=== PATIENT | female | born 1960 | race Caucasian/White ===

== ENCOUNTER 2017-12-01 18:04 | Inpatient (IN) | payer MEDICAID, SELFPAY ==
[2017-12-01 19:34] LABS: BASO # 0.1 10^3/uL (0.0-0.2); BASO % 0.5 % (0.0-1.0); EOS # 0.1 10^3/uL (0.0-0.50); EOS % 0.4 % (0.0-3.0); HEMATOCRIT 45.8 % (36.0-47.0); IMMATURE GRANULOCYTE % 1.1 % (0-3.0); LYMPH # 0.6 10^3/uL (1.5-4.5); LYMPH % 4.7 % (24.0-44.0); MEAN CORPUSCULAR HEMOGLOBIN 27.3 pg (27.0-33.0); MEAN CORPUSCULAR HGB CONC 32.8 g/dl (32.0-36.5); MEAN CORPUSCULAR VOLUME 83.4 fl (80.0-96.0); NEUTROPHILS # 10.1 10^3/uL (1.8-7.7); NEUTROPHILS % 85.3 % (36.0-66.0); PLATELET COUNT, AUTOMATED 218 10^3/uL (150-450); RED BLOOD COUNT 5.49 10^6/uL (4.00-5.40); RED CELL DISTRIBUTION WIDTH 16.3 % (11.5-14.5); WHITE BLOOD COUNT 11.8 10^3/uL (4.0-10.0)
[2017-12-01 19:55] LABS: ERYTHROCYTE SEDIMENTATION RATE 9 mm/hr (0-30)
[2017-12-01 20:38] LABS: INR 4.82; PROTHROMBIN TIME 47.8 SECONDS (12.4-14.5)
[2017-12-01 20:40] LABS: PARTIAL THROMBOPLASTIN TIME 98.2 SECONDS (26.8-37.9)
[2017-12-01 20:42] LABS: ALBUMIN 2.1 GM/DL (3.2-5.2); ALBUMIN/GLOBULIN RATIO 0.38 (1.00-1.93); ALKALINE PHOSPHATASE 240 U/L (45-117); ALT/SGPT 16 U/L (12-78); ANION GAP 21 MEQ/L (8-16); AST/SGOT 10 U/L (7-37); BILIRUBIN,DIRECT 0.1 MG/DL (0.0-0.2); BILIRUBIN,TOTAL 0.5 MG/DL (0.2-1.0); BLOOD UREA NITROGEN 36 MG/DL (7-18); CALCIUM LEVEL 9.2 MG/DL (8.5-10.1); CARBON DIOXIDE LEVEL 19 MEQ/L (21-32); CHLORIDE LEVEL 89 MEQ/L (98-107); CPK CREATINE PHOSPHOKINASE 33 U/L (26-192); CREATININE FOR GFR 1.53 MG/DL (0.55-1.30); FREE T4 1.33 NG/DL (0.76-1.46); GLOMERULAR FILTRATION RATE 37.5 (>51); SODIUM LEVEL 129 MEQ/L (136-145); TOTAL PROTEIN 7.6 GM/DL (6.4-8.2); TROPONIN I < 0.02 NG/ML (< 0.10)
[2017-12-01 20:48] LABS: CK-MB VALUE MASS 1.8 NG/ML (<3.6); MB/CK RELATIVE INDEX 5.45 (< OR =4); NT-PRO BNP 2514 PG/ML (<125)
[2017-12-01 21:00] LABS: GLUCOSE, FASTING 601 MG/DL (70-100)
[2017-12-01] MEDS: INSULIN HUMAN REGULAR 100 UNITS in NS 99 ML IV (21:03)
[2017-12-01] MEDS: HumuLIN R (REGULAR) INSULIN (NovoLIN R) **100U/ML** PER UNIT IV (21:15)
[2017-12-01] MEDS: NS 500 ML IV (21:15)
[2017-12-01] MEDS: MORPHINE 2 MG/ML 1ML SYRINGE (J2270) IV (21:15)
[2017-12-01] MEDS ORDERED: ACETAMINOPHEN TAB 650MG DOSE (2X325MG) PO (21:30)
[2017-12-01] MEDS: CEFEPIME HCL 1 GM in D5W MINI-BAG PLUS 50 ML IV (22:00)
[2017-12-01 22:03] LABS: ACETONE/KETONE > 46.00 MG/DL (<2.81)
[2017-12-02] MEDS ORDERED: VANCOMYCIN HCL 750 MG, VIAL MATE ADAPTER 1 EACH in D5W 250 ML IV (00:15)
[2017-12-02 00:16] LABS: BEDSIDE GLUCOSE 541 MG/DL (70-105)
[2017-12-02] MEDS: NS 1,000 ML IV (01:02)
[2017-12-02 01:07] LABS: BEDSIDE GLUCOSE 546 MG/DL (70-105)
[2017-12-02] MEDS: VANCOMYCIN HCL 1,000 MG, VIAL MATE ADAPTER 1 EACH in D5W 250 ML IV ×3 (01:19→23:44)
[2017-12-02 01:39] LABS: ANION GAP 13 MEQ/L (8-16); BLOOD UREA NITROGEN 40 MG/DL (7-18); CALCIUM LEVEL 9.3 MG/DL (8.5-10.1); CARBON DIOXIDE LEVEL 25 MEQ/L (21-32); CHLORIDE LEVEL 94 MEQ/L (98-107); CREATININE FOR GFR 1.63 MG/DL (0.55-1.30); GLOMERULAR FILTRATION RATE 34.9 (>51); GLUCOSE, FASTING 398 MG/DL (70-100); MAGNESIUM LEVEL 2.2 MG/DL (1.8-2.4); POTASSIUM SERUM 3.7 MEQ/L (3.5-5.1); SODIUM LEVEL 132 MEQ/L (136-145)
[2017-12-02] MEDS: PERCOCET 5MG/325MG TAB PO ×3 (01:40→21:21)
[2017-12-02 02:12] LABS: BEDSIDE GLUCOSE 431 MG/DL (70-105)
[2017-12-02] MEDS: INSULIN IV RATE CHANGE DOCUMENTATION ML/HR XX ×3 (02:12→04:25)
[2017-12-02] MEDS: POTASSIUM CHLORIDE 10 MEQ SR TABLET PO (03:10)
[2017-12-02 03:20] LABS: BEDSIDE GLUCOSE 333 MG/DL (70-105)
[2017-12-02 04:15] LABS: BEDSIDE GLUCOSE 280 MG/DL (70-105)
[2017-12-02] MEDS: AMPICILLIN SOD/SULBACTAM SOD 3 GM in D5W MINI-BAG PLUS 100 ML IV ×3 (04:24→18:08)
[2017-12-02 05:10] LABS: BEDSIDE GLUCOSE 296 MG/DL (70-105)
[2017-12-02 05:56] LABS: BEDSIDE GLUCOSE 264 MG/DL (70-105)
[2017-12-02 06:10] LABS: BASO % 0.3 % (0.0-1.0); EOS # 0.1 10^3/uL (0.0-0.50); EOS % 1.4 % (0.0-3.0); HEMATOCRIT 39.6 % (36.0-47.0); HEMOGLOBIN 13.2 g/dl (12.0-15.5); IMMATURE GRANULOCYTE % 0.8 % (0-3.0); LYMPH # 0.7 10^3/uL (1.5-4.5); LYMPH % 6.9 % (24.0-44.0); MEAN CORPUSCULAR HEMOGLOBIN 27.7 pg (27.0-33.0); MEAN CORPUSCULAR HGB CONC 33.3 g/dl (32.0-36.5); MEAN CORPUSCULAR VOLUME 83.2 fl (80.0-96.0); MONO % 10.3 % (0.0-5.0); NEUTROPHILS # 8.1 10^3/uL (1.8-7.7); NEUTROPHILS % 80.3 % (36.0-66.0); PLATELET COUNT, AUTOMATED 246 10^3/uL (150-450); RED BLOOD COUNT 4.76 10^6/uL (4.00-5.40); RED CELL DISTRIBUTION WIDTH 16.3 % (11.5-14.5)
[2017-12-02] MEDS: LEVOTHYROXINE 100MCG TABLET (0.1MG) PO (06:15)
[2017-12-02 06:36] LABS: PROTHROMBIN TIME 61.5 SECONDS (12.4-14.5)
[2017-12-02 06:37] LABS: INR 6.57
[2017-12-02] MEDS ORDERED: PHYTONADIONE IV (07:00)
[2017-12-02] MEDS ORDERED: NS IV (07:00)
[2017-12-02 07:10] LABS: ANION GAP 11 MEQ/L (8-16); BLOOD UREA NITROGEN 34 MG/DL (7-18); CALCIUM LEVEL 8.2 MG/DL (8.5-10.1); CARBON DIOXIDE LEVEL 27 MEQ/L (21-32); CHLORIDE LEVEL 97 MEQ/L (98-107); CREATININE FOR GFR 1.39 MG/DL (0.55-1.30); GLOMERULAR FILTRATION RATE 41.9 (>51); GLUCOSE, FASTING 246 MG/DL (70-100); MAGNESIUM LEVEL 2.1 MG/DL (1.8-2.4); SODIUM LEVEL 135 MEQ/L (136-145)
[2017-12-02 07:19] LABS: BEDSIDE GLUCOSE 246 MG/DL (70-105)
[2017-12-02 08:10] LABS: BEDSIDE GLUCOSE 255 MG/DL (70-105)
[2017-12-02] MEDS ORDERED: INSULIN HUMAN REGULAR 100 UNITS in NS 99 ML IV (09:00)
[2017-12-02] MEDS ORDERED: INSULIN IV RATE CHANGE DOCUMENTATION ML/HR XX (09:00)
[2017-12-02] MEDS: LIDOCAINE 5% (LIDODERM) PATCH TD (09:05)
[2017-12-02] MEDS: LEVEMIR (INSULIN DETEMIR) 1 UNITS/0.01ML SC ×2 (09:05→21:14)
[2017-12-02] MEDS: CARVedilol 6.25 MG TAB PO ×2 (09:06→21:15)
[2017-12-02 09:07] LABS: ABG BASE EXCESS -0.5 (-2.0-2.0); ABG HCO3 22.9 MEQ/L (22.0-26.0); ABG O2 SATURATION 96.1 % (95.0-99.0); ABG PARTIAL PRESSURE O2 76.5 mmHg (75.0-100.0); ABG STANDARD HCO3 24.1 MEQ/L (22.0-26.0); ABG TOTAL CO2 23.9 MEQ/L (22.0-29.0); ABG pH (ARTERIAL) 7.446 UNITS (7.350-7.450)
[2017-12-02 09:17] LABS: BEDSIDE GLUCOSE 245 MG/DL (70-105)
[2017-12-02 09:28] LABS: ACETONE/KETONE 20.93 MG/DL (<2.81)
[2017-12-02] MEDS ORDERED: GLUCAGON FOR INJ 1 MG VIAL (J1610) SC (11:00)
[2017-12-02 11:38] LABS: BEDSIDE GLUCOSE 310 MG/DL (70-105)
[2017-12-02 11:51] LABS: ANION GAP 11 MEQ/L (8-16); BLOOD UREA NITROGEN 34 MG/DL (7-18); CALCIUM LEVEL 8.9 MG/DL (8.5-10.1); CARBON DIOXIDE LEVEL 28 MEQ/L (21-32); CHLORIDE LEVEL 95 MEQ/L (98-107); CREATININE FOR GFR 1.35 MG/DL (0.55-1.30); GLOMERULAR FILTRATION RATE 43.3 (>51); GLUCOSE, FASTING 342 MG/DL (70-100); POTASSIUM SERUM 3.9 MEQ/L (3.5-5.1); SODIUM LEVEL 134 MEQ/L (136-145)
[2017-12-02] MEDS: HumaLOG INSULIN (NovoLOG) PER UNIT SC ×3 (12:03→21:14)
[2017-12-02 16:44] LABS: BEDSIDE GLUCOSE 319 MG/DL (70-105)
[2017-12-02] MEDS ORDERED: WARFARIN SOD 5 MG TAB PO (17:00)
[2017-12-02 18:55] LABS: ANION GAP 12 MEQ/L (8-16); BLOOD UREA NITROGEN 28 MG/DL (7-18); CALCIUM LEVEL 8.4 MG/DL (8.5-10.1); CARBON DIOXIDE LEVEL 27 MEQ/L (21-32); CHLORIDE LEVEL 95 MEQ/L (98-107); GLUCOSE, FASTING 303 MG/DL (70-100); POTASSIUM SERUM 4.1 MEQ/L (3.5-5.1); SODIUM LEVEL 134 MEQ/L (136-145)
[2017-12-02 19:03] LABS: PROTHROMBIN TIME 65.2 SECONDS (12.4-14.5)
[2017-12-02 19:05] LABS: INR 7.07
[2017-12-02 19:31] LABS: GLOMERULAR FILTRATION RATE 54.9 (>51)
[2017-12-02] MEDS: **NOTE PATIENT COMMENT** MISC XX (21:00)
[2017-12-02 21:08] LABS: BEDSIDE GLUCOSE 290 MG/DL (70-105)
[2017-12-02] MEDS: ROSUVASTATIN 10 MG TAB (CRESTOR) PO (21:15)
[2017-12-03] MEDS: AMPICILLIN SOD/SULBACTAM SOD 3 GM in D5W MINI-BAG PLUS 100 ML IV ×3 (02:00→18:04)
[2017-12-03] MEDS: PERCOCET 5MG/325MG TAB PO ×3 (04:40→20:21)
[2017-12-03 05:21] LABS: BASO # 0.1 10^3/uL (0.0-0.2); BASO % 0.5 % (0.0-1.0); EOS # 0.2 10^3/uL (0.0-0.50); EOS % 2.1 % (0.0-3.0); HEMATOCRIT 41.5 % (36.0-47.0); HEMOGLOBIN 13.9 g/dl (12.0-15.5); IMMATURE GRANULOCYTE % 0.9 % (0-3.0); LYMPH # 0.5 10^3/uL (1.5-4.5); LYMPH % 4.5 % (24.0-44.0); MEAN CORPUSCULAR HEMOGLOBIN 27.6 pg (27.0-33.0); MEAN CORPUSCULAR HGB CONC 33.5 g/dl (32.0-36.5); MEAN CORPUSCULAR VOLUME 82.5 fl (80.0-96.0); MONO # 1.4 10^3/uL (0.0-0.8); MONO % 12.3 % (0.0-5.0); NEUTROPHILS # 9.3 10^3/uL (1.8-7.7); NEUTROPHILS % 79.7 % (36.0-66.0); PLATELET COUNT, AUTOMATED 282 10^3/uL (150-450); RED BLOOD COUNT 5.03 10^6/uL (4.00-5.40); RED CELL DISTRIBUTION WIDTH 16.2 % (11.5-14.5); WHITE BLOOD COUNT 11.7 10^3/uL (4.0-10.0)
[2017-12-03 05:31] LABS: INR 4.67; PROTHROMBIN TIME 46.6 SECONDS (12.4-14.5)
[2017-12-03 05:42] LABS: ANION GAP 8 MEQ/L (8-16); BLOOD UREA NITROGEN 27 MG/DL (7-18); CALCIUM LEVEL 9.4 MG/DL (8.5-10.1); CARBON DIOXIDE LEVEL 27 MEQ/L (21-32); CHLORIDE LEVEL 98 MEQ/L (98-107); CREATININE FOR GFR 0.95 MG/DL (0.55-1.30); GLOMERULAR FILTRATION RATE > 60.0 (>51); GLUCOSE, FASTING 88 MG/DL (70-100); POTASSIUM SERUM 3.6 MEQ/L (3.5-5.1); SODIUM LEVEL 133 MEQ/L (136-145)
[2017-12-03] MEDS: LEVOTHYROXINE 100MCG TABLET (0.1MG) PO (06:38)
[2017-12-03] MEDS: HumaLOG INSULIN (NovoLOG) PER UNIT SC ×4 (07:16→21:00)
[2017-12-03] MEDS: POTASSIUM CHLORIDE 10 MEQ SR TABLET PO (09:29)
[2017-12-03] MEDS: LEVEMIR (INSULIN DETEMIR) 1 UNITS/0.01ML SC (09:29)
[2017-12-03] MEDS: ASPIRIN 81 MG ENTERIC TAB PO (09:29)
[2017-12-03] MEDS: PREGABALIN 75 MG CAP(LYRICA) PO ×2 (09:29→21:22)
[2017-12-03] MEDS: LIDOCAINE 5% (LIDODERM) PATCH TD (09:30)
[2017-12-03] MEDS: CARVedilol 6.25 MG TAB PO ×2 (09:34→21:21)
[2017-12-03 11:53] LABS: BEDSIDE GLUCOSE 84 MG/DL (70-105)
[2017-12-03 16:32] LABS: BEDSIDE GLUCOSE 45 MG/DL (70-105)
[2017-12-03 16:45] LABS: BEDSIDE GLUCOSE 40 MG/DL (70-105)
[2017-12-03] MEDS: GLUCOSE 4 GM CHEW TABLET PO (16:45)
[2017-12-03 16:59] LABS: BEDSIDE GLUCOSE 40 MG/DL (70-105)
[2017-12-03] MEDS: DEXTROSE 50% 50 ML SYRINGE IV (17:09)
[2017-12-03 17:35] LABS: BEDSIDE GLUCOSE 46 MG/DL (70-105)
[2017-12-03 18:44] LABS: BEDSIDE GLUCOSE CONFIRMATION 115 MG/DL (LESS THAN 200)
[2017-12-03] MEDS: LIDOCAINE W/EPINEPHRINE 1% 20ML VIAL SC (19:15)
[2017-12-03 20:35] LABS: BEDSIDE GLUCOSE 201 MG/DL (70-105)
[2017-12-03] MEDS: ROSUVASTATIN 10 MG TAB (CRESTOR) PO (21:22)
[2017-12-03] MEDS: **NOTE PATIENT COMMENT** MISC XX (21:28)
[2017-12-03 22:39] LABS: VANCOMYCIN LEVEL TROUGH 10.2 UG/ML (10.0-20.0)
[2017-12-03] MEDS: VANCOMYCIN HCL 1,000 MG, VIAL MATE ADAPTER 1 EACH in D5W 250 ML IV (23:21)
[2017-12-04] MEDS: AMPICILLIN SOD/SULBACTAM SOD 3 GM in D5W MINI-BAG PLUS 100 ML IV ×3 (02:44→17:08)
[2017-12-04] MEDS: LEVOTHYROXINE 100MCG TABLET (0.1MG) PO (05:31)
[2017-12-04 06:57] LABS: BASO % 0.5 % (0.0-1.0); EOS # 0.2 10^3/uL (0.0-0.50); HEMATOCRIT 38.6 % (36.0-47.0); HEMOGLOBIN 12.8 g/dl (12.0-15.5); IMMATURE GRANULOCYTE % 1.5 % (0-3.0); LYMPH % 12.1 % (24.0-44.0); MEAN CORPUSCULAR HEMOGLOBIN 27.8 pg (27.0-33.0); MEAN CORPUSCULAR HGB CONC 33.2 g/dl (32.0-36.5); MEAN CORPUSCULAR VOLUME 83.9 fl (80.0-96.0); MONO % 12.1 % (0.0-5.0); NEUTROPHILS # 5.6 10^3/uL (1.8-7.7); NEUTROPHILS % 70.8 % (36.0-66.0); PLATELET COUNT, AUTOMATED 311 10^3/uL (150-450); RED CELL DISTRIBUTION WIDTH 16.4 % (11.5-14.5); WHITE BLOOD COUNT 7.9 10^3/uL (4.0-10.0)
[2017-12-04 07:24] LABS: ANION GAP 11 MEQ/L (8-16); BLOOD UREA NITROGEN 25 MG/DL (7-18); CALCIUM LEVEL 9.1 MG/DL (8.5-10.1); CARBON DIOXIDE LEVEL 26 MEQ/L (21-32); CHLORIDE LEVEL 96 MEQ/L (98-107); CREATININE FOR GFR 0.92 MG/DL (0.55-1.30); GLOMERULAR FILTRATION RATE > 60.0 (>51); GLUCOSE, FASTING 146 MG/DL (70-100); SODIUM LEVEL 133 MEQ/L (136-145)
[2017-12-04] MEDS: POTASSIUM CHLORIDE 10 MEQ SR TABLET PO (08:05)
[2017-12-04] MEDS: PERCOCET 5MG/325MG TAB PO ×3 (08:05→21:35)
[2017-12-04] MEDS: PREGABALIN 75 MG CAP(LYRICA) PO ×2 (08:05→21:35)
[2017-12-04] MEDS: HumaLOG INSULIN (NovoLOG) PER UNIT SC ×4 (08:05→21:35)
[2017-12-04] MEDS: LIDOCAINE 5% (LIDODERM) PATCH TD (08:06)
[2017-12-04] MEDS: ASPIRIN 81 MG ENTERIC TAB PO (08:06)
[2017-12-04] MEDS ORDERED: LEVEMIR (INSULIN DETEMIR) 1 UNITS/0.01ML SC (09:00)
[2017-12-04] MEDS: CARVedilol 6.25 MG TAB PO ×2 (09:12→21:35)
[2017-12-04] MEDS: VANCOMYCIN HCL 1,000 MG, VIAL MATE ADAPTER 1 EACH in D5W 250 ML IV ×2 (10:11→23:23)
[2017-12-04 11:20] LABS: INR 3.51; PROTHROMBIN TIME 36.9 SECONDS (12.4-14.5)
[2017-12-04 11:50] LABS: BEDSIDE GLUCOSE 158 MG/DL (70-105)
[2017-12-04] MEDS: AQUAPHOR **100GM** OINT TOP ×3 (12:07→21:36)
[2017-12-04] MEDS: NYSTATIN 100,000 UNITS/GM TOPICAL PWD 15 GM TOP (12:40)
[2017-12-04 16:45] LABS: BEDSIDE GLUCOSE 105 MG/DL (70-105)
[2017-12-04] MEDS: **NOTE PATIENT COMMENT** MISC XX (21:00)
[2017-12-04 21:02] LABS: BEDSIDE GLUCOSE 118 MG/DL (70-105)
[2017-12-04] MEDS: ROSUVASTATIN 10 MG TAB (CRESTOR) PO (21:34)
[2017-12-04] MEDS: LEVEMIR (INSULIN DETEMIR) 1 UNITS/0.01ML SC (21:37)
[2017-12-05] MEDS: AMPICILLIN SOD/SULBACTAM SOD 3 GM in D5W MINI-BAG PLUS 100 ML IV ×2 (01:44→09:16)
[2017-12-05] MEDS: PERCOCET 5MG/325MG TAB PO ×2 (03:36→22:12)
[2017-12-05] MEDS: LEVOTHYROXINE 100MCG TABLET (0.1MG) PO (05:41)
[2017-12-05 06:43] LABS: BASO # 0.1 10^3/uL (0.0-0.2); BASO % 1.3 % (0.0-1.0); EOS # 0.3 10^3/uL (0.0-0.50); EOS % 5.2 % (0.0-3.0); HEMATOCRIT 37.4 % (36.0-47.0); HEMOGLOBIN 12.3 g/dl (12.0-15.5); IMMATURE GRANULOCYTE % 3.8 % (0-3.0); LYMPH # 0.8 10^3/uL (1.5-4.5); LYMPH % 16.1 % (24.0-44.0); MEAN CORPUSCULAR HEMOGLOBIN 27.8 pg (27.0-33.0); MEAN CORPUSCULAR HGB CONC 32.9 g/dl (32.0-36.5); MEAN CORPUSCULAR VOLUME 84.4 fl (80.0-96.0); MONO # 0.7 10^3/uL (0.0-0.8); MONO % 12.9 % (0.0-5.0); NEUTROPHILS # 3.2 10^3/uL (1.8-7.7); NEUTROPHILS % 60.7 % (36.0-66.0); PLATELET COUNT, AUTOMATED 259 10^3/uL (150-450); RED BLOOD COUNT 4.43 10^6/uL (4.00-5.40); RED CELL DISTRIBUTION WIDTH 16.4 % (11.5-14.5); WHITE BLOOD COUNT 5.2 10^3/uL (4.0-10.0)
[2017-12-05 06:59] LABS: INR 1.86
[2017-12-05 07:05] LABS: ANION GAP 7 MEQ/L (8-16); BLOOD UREA NITROGEN 20 MG/DL (7-18); CARBON DIOXIDE LEVEL 33 MEQ/L (21-32); CHLORIDE LEVEL 94 MEQ/L (98-107); CREATININE FOR GFR 0.85 MG/DL (0.55-1.30); GLOMERULAR FILTRATION RATE > 60.0 (>51); GLUCOSE, FASTING 271 MG/DL (70-100); POTASSIUM SERUM 4.5 MEQ/L (3.5-5.1); SODIUM LEVEL 134 MEQ/L (136-145)
[2017-12-05] MEDS: FAMOTIDINE 20 MG TAB PO ×2 (09:00→21:30)
[2017-12-05] MEDS: FUROSEMIDE 80 MG TAB PO (09:00)
[2017-12-05] MEDS: HumaLOG INSULIN (NovoLOG) PER UNIT SC ×4 (09:13→21:32)
[2017-12-05] MEDS: POTASSIUM CHLORIDE 10 MEQ SR TABLET PO (09:14)
[2017-12-05] MEDS: ASPIRIN 81 MG ENTERIC TAB PO (09:14)
[2017-12-05] MEDS: CARVedilol 6.25 MG TAB PO ×2 (09:14→21:31)
[2017-12-05] MEDS: LIDOCAINE 5% (LIDODERM) PATCH TD (09:14)
[2017-12-05] MEDS: PREGABALIN 75 MG CAP(LYRICA) PO ×2 (09:14→21:31)
[2017-12-05] MEDS: NYSTATIN 100,000 UNITS/GM TOPICAL PWD 15 GM TOP (09:15)
[2017-12-05] MEDS: AQUAPHOR **100GM** OINT TOP ×3 (09:15→21:34)
[2017-12-05] MEDS: LEVEMIR (INSULIN DETEMIR) 1 UNITS/0.01ML SC ×2 (09:20→21:33)
[2017-12-05 11:04] LABS: VANCOMYCIN LEVEL TROUGH 19.4 UG/ML (10.0-20.0)
[2017-12-05] MEDS: VANCOMYCIN HCL 1,000 MG, VIAL MATE ADAPTER 1 EACH in D5W 250 ML IV (11:34)
[2017-12-05 12:17] LABS: BEDSIDE GLUCOSE 332 MG/DL (70-105)
[2017-12-05] MEDS: LORazepam 1 MG TAB PO ×2 (12:31→21:31)
[2017-12-05] MEDS: ceFAZolin SOD 1 GM in D5W MINI-BAG PLUS 50 ML IV ×2 (13:55→21:33)
[2017-12-05 16:44] LABS: BEDSIDE GLUCOSE 177 MG/DL (70-105)
[2017-12-05] MEDS: WARFARIN SOD 3 MG TAB PO (16:57)
[2017-12-05 20:53] LABS: BEDSIDE GLUCOSE 258 MG/DL (70-105)
[2017-12-05] MEDS: **NOTE PATIENT COMMENT** MISC XX (21:00)
[2017-12-05] MEDS: ROSUVASTATIN 10 MG TAB (CRESTOR) PO (21:30)
[2017-12-05] MEDS: ENTRESTO 24-26MG TABLET (SACUBITRIL/VALSARTAN) PO (21:31)
[2017-12-06] MEDS: ceFAZolin SOD 1 GM in D5W MINI-BAG PLUS 50 ML IV ×3 (05:29→21:53)
[2017-12-06] MEDS: PERCOCET 5MG/325MG TAB PO ×3 (05:30→23:41)
[2017-12-06] MEDS: LEVOTHYROXINE 100MCG TABLET (0.1MG) PO (05:31)
[2017-12-06 06:49] LABS: BASO # 0.1 10^3/uL (0.0-0.2); BASO % 1.7 % (0.0-1.0); EOS # 0.3 10^3/uL (0.0-0.50); EOS % 6.4 % (0.0-3.0); HEMATOCRIT 36.6 % (36.0-47.0); HEMOGLOBIN 11.8 g/dl (12.0-15.5); IMMATURE GRANULOCYTE % 4.4 % (0-3.0); LYMPH % 21.4 % (24.0-44.0); MEAN CORPUSCULAR HEMOGLOBIN 27.5 pg (27.0-33.0); MEAN CORPUSCULAR HGB CONC 32.2 g/dl (32.0-36.5); MEAN CORPUSCULAR VOLUME 85.3 fl (80.0-96.0); MONO # 0.6 10^3/uL (0.0-0.8); MONO % 12.9 % (0.0-5.0); NEUTROPHILS # 2.5 10^3/uL (1.8-7.7); NEUTROPHILS % 53.2 % (36.0-66.0); PLATELET COUNT, AUTOMATED 278 10^3/uL (150-450); RED BLOOD COUNT 4.29 10^6/uL (4.00-5.40); RED CELL DISTRIBUTION WIDTH 16.4 % (11.5-14.5); WHITE BLOOD COUNT 4.7 10^3/uL (4.0-10.0)
[2017-12-06 07:02] LABS: ANION GAP 8 MEQ/L (8-16); BLOOD UREA NITROGEN 16 MG/DL (7-18); CALCIUM LEVEL 8.5 MG/DL (8.5-10.1); CARBON DIOXIDE LEVEL 25 MEQ/L (21-32); CHLORIDE LEVEL 103 MEQ/L (98-107); CREATININE FOR GFR 0.89 MG/DL (0.55-1.30); GLOMERULAR FILTRATION RATE > 60.0 (>51); GLUCOSE, FASTING 349 MG/DL (70-100); INR 1.28; POTASSIUM SERUM 4.6 MEQ/L (3.5-5.1); PROTHROMBIN TIME 16.3 SECONDS (12.4-14.5); SODIUM LEVEL 136 MEQ/L (136-145)
[2017-12-06] MEDS: LEVEMIR (INSULIN DETEMIR) 1 UNITS/0.01ML SC ×2 (08:39→21:45)
[2017-12-06] MEDS: HumaLOG INSULIN (NovoLOG) PER UNIT SC ×4 (08:39→21:00)
[2017-12-06] MEDS: FAMOTIDINE 20 MG TAB PO ×2 (08:40→21:43)
[2017-12-06] MEDS: PREGABALIN 75 MG CAP(LYRICA) PO ×2 (08:40→21:43)
[2017-12-06] MEDS: FUROSEMIDE 80 MG TAB PO (08:41)
[2017-12-06] MEDS: LORazepam 1 MG TAB PO ×2 (08:41→21:43)
[2017-12-06] MEDS: POTASSIUM CHLORIDE 10 MEQ SR TABLET PO (08:41)
[2017-12-06] MEDS: CARVedilol 6.25 MG TAB PO ×2 (08:43→21:44)
[2017-12-06] MEDS: AQUAPHOR **100GM** OINT TOP ×3 (08:44→21:45)
[2017-12-06] MEDS: ASPIRIN 81 MG ENTERIC TAB PO (08:44)
[2017-12-06] MEDS: ENTRESTO 24-26MG TABLET (SACUBITRIL/VALSARTAN) PO ×2 (08:44→21:44)
[2017-12-06] MEDS: NYSTATIN 100,000 UNITS/GM TOPICAL PWD 15 GM TOP (08:46)
[2017-12-06] MEDS ORDERED: DOCUSATE SODIUM 100 MG CAP PO (09:00)
[2017-12-06] MEDS: DICLOFENAC EPOLAMINE 1.3 % PATCH TOP ×2 (10:20→21:45)
[2017-12-06 11:30] LABS: BEDSIDE GLUCOSE 303 MG/DL (70-105)
[2017-12-06 16:37] LABS: BEDSIDE GLUCOSE 197 MG/DL (70-105)
[2017-12-06] MEDS: WARFARIN SOD 4 MG TAB PO (17:00)
[2017-12-06 20:19] LABS: BEDSIDE GLUCOSE 239 MG/DL (70-105)
[2017-12-06] MEDS: ROSUVASTATIN 10 MG TAB (CRESTOR) PO (21:43)
[2017-12-07] MEDS: LEVOTHYROXINE 100MCG TABLET (0.1MG) PO (05:44)
[2017-12-07] MEDS: ceFAZolin SOD 1 GM in D5W MINI-BAG PLUS 50 ML IV ×3 (05:45→21:39)
[2017-12-07] MEDS: PERCOCET 5MG/325MG TAB PO ×3 (05:45→21:45)
[2017-12-07 06:59] LABS: BEDSIDE GLUCOSE 332 MG/DL (70-105)
[2017-12-07] MEDS: DICLOFENAC EPOLAMINE 1.3 % PATCH TOP ×2 (08:03→21:37)
[2017-12-07] MEDS: FUROSEMIDE 80 MG TAB PO (08:04)
[2017-12-07] MEDS: LEVEMIR (INSULIN DETEMIR) 1 UNITS/0.01ML SC ×2 (08:04→21:38)
[2017-12-07] MEDS: HumaLOG INSULIN (NovoLOG) PER UNIT SC ×4 (08:04→21:00)
[2017-12-07] MEDS: ENTRESTO 24-26MG TABLET (SACUBITRIL/VALSARTAN) PO ×2 (08:05→21:38)
[2017-12-07] MEDS: LORazepam 1 MG TAB PO ×2 (08:05→21:38)
[2017-12-07] MEDS: CARVedilol 6.25 MG TAB PO ×2 (08:05→21:39)
[2017-12-07] MEDS: PREGABALIN 75 MG CAP(LYRICA) PO ×2 (08:05→21:38)
[2017-12-07] MEDS: ASPIRIN 81 MG ENTERIC TAB PO (08:05)
[2017-12-07] MEDS: FAMOTIDINE 20 MG TAB PO ×2 (08:05→21:38)
[2017-12-07] MEDS: POTASSIUM CHLORIDE 10 MEQ SR TABLET PO (08:05)
[2017-12-07] MEDS: AQUAPHOR **100GM** OINT TOP ×3 (08:06→21:40)
[2017-12-07] MEDS: NYSTATIN 100,000 UNITS/GM TOPICAL PWD 15 GM TOP (08:06)
[2017-12-07 09:42] LABS: HEMATOCRIT 37.5 % (36.0-47.0); HEMOGLOBIN 11.8 g/dl (12.0-15.5); MEAN CORPUSCULAR HEMOGLOBIN 27.3 pg (27.0-33.0); MEAN CORPUSCULAR HGB CONC 31.5 g/dl (32.0-36.5); MEAN CORPUSCULAR VOLUME 86.8 fl (80.0-96.0); PLATELET COUNT, AUTOMATED 302 10^3/uL (150-450); RED BLOOD COUNT 4.32 10^6/uL (4.00-5.40); RED CELL DISTRIBUTION WIDTH 16.1 % (11.5-14.5); WHITE BLOOD COUNT 5.1 10^3/uL (4.0-10.0)
[2017-12-07 09:50] LABS: INR 1.18; PROTHROMBIN TIME 15.2 SECONDS (12.4-14.5)
[2017-12-07 10:02] LABS: ANION GAP 8 MEQ/L (8-16); BLOOD UREA NITROGEN 16 MG/DL (7-18); CALCIUM LEVEL 8.1 MG/DL (8.5-10.1); CARBON DIOXIDE LEVEL 32 MEQ/L (21-32); CHLORIDE LEVEL 98 MEQ/L (98-107); CREATININE FOR GFR 1.06 MG/DL (0.55-1.30); GLOMERULAR FILTRATION RATE 57.3 (>51); POTASSIUM SERUM 4.9 MEQ/L (3.5-5.1); SODIUM LEVEL 138 MEQ/L (136-145)
[2017-12-07 10:03] LABS: GLUCOSE, FASTING 422 MG/DL (70-100)
[2017-12-07 10:07] LABS: ADD MANUAL DIFFER YES; DIFF SLIDE NUMBER 11; POS COUNT POS FLAG; POSITIVE MORPH POS FLAG
[2017-12-07 10:30] LABS: BANDS 2 % (< 11); BASOPHILS 1 % (0-4); EOSINOPHILS 5 % (0-5); LYMPHOCYTES 18 % (16-52); METAMYELOCYTES 1 % (0-0); MONOCYTES 7 % (0-8); MYELOCYTES 2 % (0-0); NEUTROPHILS 64 % (35-75); PLATELET ESTIMATE NORMAL (NORMAL)
[2017-12-07 11:33] LABS: BEDSIDE GLUCOSE 320 MG/DL (70-105)
[2017-12-07] MEDS: WARFARIN SOD 3 MG TAB PO (16:17)
[2017-12-07 17:30] LABS: BEDSIDE GLUCOSE 200 MG/DL (70-105)
[2017-12-07 20:46] LABS: BEDSIDE GLUCOSE 185 MG/DL (70-105)
[2017-12-07] MEDS: ROSUVASTATIN 10 MG TAB (CRESTOR) PO (21:38)
[2017-12-08] MEDS: PERCOCET 5MG/325MG TAB PO ×3 (04:45→21:00)
[2017-12-08] MEDS: ceFAZolin SOD 1 GM in D5W MINI-BAG PLUS 50 ML IV ×3 (05:49→20:53)
[2017-12-08] MEDS: LEVOTHYROXINE 100MCG TABLET (0.1MG) PO (05:49)
[2017-12-08 07:20] LABS: HEMATOCRIT 35.3 % (36.0-47.0); HEMOGLOBIN 11.6 g/dl (12.0-15.5); MEAN CORPUSCULAR HEMOGLOBIN 27.9 pg (27.0-33.0); MEAN CORPUSCULAR HGB CONC 32.9 g/dl (32.0-36.5); MEAN CORPUSCULAR VOLUME 84.9 fl (80.0-96.0); PLATELET COUNT, AUTOMATED 311 10^3/uL (150-450); RED BLOOD COUNT 4.16 10^6/uL (4.00-5.40); RED CELL DISTRIBUTION WIDTH 15.9 % (11.5-14.5); WHITE BLOOD COUNT 5.7 10^3/uL (4.0-10.0)
[2017-12-08 07:29] LABS: ADD MANUAL DIFFER YES; DIFF SLIDE NUMBER 7; POS COUNT POS FLAG; POSITIVE MORPH POS FLAG
[2017-12-08 07:37] LABS: PROTHROMBIN TIME 16.5 SECONDS (12.4-14.5)
[2017-12-08 07:42] LABS: ANION GAP 8 MEQ/L (8-16); BLOOD UREA NITROGEN 20 MG/DL (7-18); CALCIUM LEVEL 8.4 MG/DL (8.5-10.1); CARBON DIOXIDE LEVEL 30 MEQ/L (21-32); CHLORIDE LEVEL 101 MEQ/L (98-107); CREATININE FOR GFR 0.92 MG/DL (0.55-1.30); GLOMERULAR FILTRATION RATE > 60.0 (>51); GLUCOSE, FASTING 215 MG/DL (70-100); POTASSIUM SERUM 4.1 MEQ/L (3.5-5.1); SODIUM LEVEL 139 MEQ/L (136-145)
[2017-12-08 07:55] LABS: BANDS 1 % (< 11); EOSINOPHILS 1 % (0-5); LYMPHOCYTES 26 % (16-52); METAMYELOCYTES 1 % (0-0); MONOCYTES 8 % (0-8); MYELOCYTES 4 % (0-0); NEUTROPHILS 59 % (35-75)
[2017-12-08 07:56] LABS: ANISOCYTOSIS 1+; PLATELET ESTIMATE NORMAL (NORMAL)
[2017-12-08] MEDS: DICLOFENAC EPOLAMINE 1.3 % PATCH TOP ×2 (08:58→20:54)
[2017-12-08] MEDS: LEVEMIR (INSULIN DETEMIR) 1 UNITS/0.01ML SC ×2 (08:58→20:53)
[2017-12-08] MEDS: HumaLOG INSULIN (NovoLOG) PER UNIT SC ×4 (08:58→21:00)
[2017-12-08] MEDS: FAMOTIDINE 20 MG TAB PO ×2 (08:59→20:52)
[2017-12-08] MEDS: ENTRESTO 24-26MG TABLET (SACUBITRIL/VALSARTAN) PO ×2 (08:59→20:52)
[2017-12-08] MEDS: FUROSEMIDE 80 MG TAB PO ×2 (08:59→16:14)
[2017-12-08] MEDS: ASPIRIN 81 MG ENTERIC TAB PO (08:59)
[2017-12-08] MEDS: PREGABALIN 75 MG CAP(LYRICA) PO ×2 (08:59→20:51)
[2017-12-08] MEDS: LORazepam 1 MG TAB PO ×2 (08:59→20:52)
[2017-12-08] MEDS: CARVedilol 6.25 MG TAB PO ×2 (08:59→20:53)
[2017-12-08] MEDS: AQUAPHOR **100GM** OINT TOP ×3 (09:00→20:53)
[2017-12-08] MEDS: NYSTATIN 100,000 UNITS/GM TOPICAL PWD 15 GM TOP (09:00)
[2017-12-08] MEDS: POTASSIUM CHLORIDE 10 MEQ SR TABLET PO (09:00)
[2017-12-08 11:29] LABS: BEDSIDE GLUCOSE 291 MG/DL (70-105)
[2017-12-08] MEDS: WARFARIN SOD 3 MG TAB PO (16:14)
[2017-12-08] MEDS: NICOTINE 14 MG/24 HR TRANSDERMAL TD (16:15)
[2017-12-08 16:54] LABS: BEDSIDE GLUCOSE 222 MG/DL (70-105)
[2017-12-08] MEDS ORDERED: WARFARIN SOD 2 MG TAB PO (17:00)
[2017-12-08 20:23] LABS: BEDSIDE GLUCOSE 192 MG/DL (70-105)
[2017-12-08] MEDS: ROSUVASTATIN 10 MG TAB (CRESTOR) PO (20:53)
[2017-12-09] MEDS: LEVOTHYROXINE 100MCG TABLET (0.1MG) PO (05:44)
[2017-12-09] MEDS: ceFAZolin SOD 1 GM in D5W MINI-BAG PLUS 50 ML IV ×3 (05:44→21:58)
[2017-12-09] MEDS: PERCOCET 5MG/325MG TAB PO ×3 (06:53→17:21)
[2017-12-09] MEDS: HumaLOG INSULIN (NovoLOG) PER UNIT SC ×7 (07:30→21:56)
[2017-12-09] MEDS ORDERED: ETOMIDATE INJ 20MG/10ML VIAL As Ordered (08:50)
[2017-12-09] MEDS ORDERED: ROCURONIUM BROMIDE 50 MG/5 ML VIAL As Ordered (08:50)
[2017-12-09] MEDS ORDERED: ALBUTEROL 6.7GM INHALER **FOR ANES. CART/OMNICELL ONLY As Ordered ×2 (08:50)
[2017-12-09] MEDS ORDERED: ONDANSETRON 4MG/2ML VIAL (J2405) As Ordered (08:50)
[2017-12-09] MEDS ORDERED: fentaNYL 100 MCG/2 ML INJECTION (J3010) As Ordered ×2 (08:50→10:12)
[2017-12-09] MEDS ORDERED: NEOSTIGMINE 10 MG/10 ML VIAL (J2710) As Ordered (08:50)
[2017-12-09] MEDS ORDERED: PROPOFOL 200 MG/20 ML VIAL As Ordered (08:50)
[2017-12-09] MEDS ORDERED: GLYCOPYRROLATE INJ 0.2 MG/ML 2 ML VIAL As Ordered (08:50)
[2017-12-09] MEDS ORDERED: MIDAZOLAM INJ 2 MG/2 ML VIAL (J2250) As Ordered (08:50)
[2017-12-09] MEDS ORDERED: METOCLOPRAMIDE INJ 10MG/2ML VIAL (J2765) As Ordered (08:50)
[2017-12-09] MEDS ORDERED: LIDOCAINE 2% INJ 100 MG/5 ML SDV (FOR ANES.) As Ordered (08:50)
[2017-12-09] MEDS ORDERED: dexameTHASONE 4 MG/ML 1ML VIAL (J1100) As Ordered (08:50)
[2017-12-09] MEDS ORDERED: PHENYLephrine HCL 500 MCG/5 ML (100MCG/ML) SYRINGE (J2370) As Ordered (08:55)
[2017-12-09] MEDS ORDERED: HumaLOG INSULIN (NovoLOG) PER UNIT As Ordered (10:07)
[2017-12-09 10:09] LABS: BEDSIDE GLUCOSE 277 MG/DL (70-105)
[2017-12-09] MEDS ORDERED: PERCOCET 5MG/325MG TAB As Ordered (10:12)
[2017-12-09] MEDS: fentaNYL 100 MCG/2 ML INJECTION (J3010) IV ×4 (10:21→10:48)
[2017-12-09] MEDS ORDERED: ONDANSETRON 4MG/2ML VIAL (J2405) IV (10:30)
[2017-12-09] MEDS: LR 1,000 ML IV (10:30)
[2017-12-09] MEDS: NICOTINE 14 MG/24 HR TRANSDERMAL TD (11:36)
[2017-12-09] MEDS: AQUAPHOR **100GM** OINT TOP ×3 (11:37→22:01)
[2017-12-09] MEDS: DICLOFENAC EPOLAMINE 1.3 % PATCH TOP ×2 (11:37→21:00)
[2017-12-09] MEDS: LEVEMIR (INSULIN DETEMIR) 1 UNITS/0.01ML SC ×3 (11:38→21:57)
[2017-12-09] MEDS: POTASSIUM CHLORIDE 10 MEQ SR TABLET PO (11:38)
[2017-12-09] MEDS: FAMOTIDINE 20 MG TAB PO ×2 (11:38→21:58)
[2017-12-09] MEDS: CARVedilol 6.25 MG TAB PO ×2 (11:39→22:00)
[2017-12-09] MEDS: FUROSEMIDE 80 MG TAB PO ×2 (11:39→17:21)
[2017-12-09] MEDS: ASPIRIN 81 MG ENTERIC TAB PO (11:39)
[2017-12-09] MEDS: LORazepam 1 MG TAB PO ×2 (11:39→22:00)
[2017-12-09] MEDS: PREGABALIN 75 MG CAP(LYRICA) PO ×2 (11:39→22:00)
[2017-12-09] MEDS: NYSTATIN 100,000 UNITS/GM TOPICAL PWD 15 GM TOP (11:40)
[2017-12-09] MEDS: ENTRESTO 24-26MG TABLET (SACUBITRIL/VALSARTAN) PO ×2 (11:46→22:00)
[2017-12-09 13:31] LABS: HEMATOCRIT 40.8 % (36.0-47.0); HEMOGLOBIN 13.2 g/dl (12.0-15.5); MEAN CORPUSCULAR HEMOGLOBIN 27.9 pg (27.0-33.0); MEAN CORPUSCULAR HGB CONC 32.4 g/dl (32.0-36.5); MEAN CORPUSCULAR VOLUME 86.3 fl (80.0-96.0); PLATELET COUNT, AUTOMATED 393 10^3/uL (150-450); RED BLOOD COUNT 4.73 10^6/uL (4.00-5.40); RED CELL DISTRIBUTION WIDTH 15.9 % (11.5-14.5)
[2017-12-09 13:33] LABS: ADD MANUAL DIFFER YES; DIFF SLIDE NUMBER 2; POS COUNT POS FLAG; POSITIVE MORPH POS FLAG
[2017-12-09 13:43] LABS: ANION GAP 4 MEQ/L (8-16); BLOOD UREA NITROGEN 21 MG/DL (7-18); CALCIUM LEVEL 9.1 MG/DL (8.5-10.1); CARBON DIOXIDE LEVEL 34 MEQ/L (21-32); CHLORIDE LEVEL 100 MEQ/L (98-107); CREATININE FOR GFR 1.15 MG/DL (0.55-1.30); GLOMERULAR FILTRATION RATE 52.2 (>51); GLUCOSE, FASTING 246 MG/DL (70-100); POTASSIUM SERUM 4.8 MEQ/L (3.5-5.1); SODIUM LEVEL 138 MEQ/L (136-145)
[2017-12-09 14:03] LABS: ATYPICAL LYMPH 1 % (0-5); BANDS 2 % (< 11); BASOPHILS 1 % (0-4); EOSINOPHILS 4 % (0-5); LYMPHOCYTES 10 % (16-52); METAMYELOCYTES 1 % (0-0); MONOCYTES 2 % (0-8); NEUTROPHILS 79 % (35-75); PLATELET ESTIMATE NORMAL (NORMAL)
[2017-12-09 14:04] LABS: ANISOCYTOSIS 1+; OVALOCYTES 1+; POIKILOCYTOSIS 1+
[2017-12-09 16:42] LABS: BEDSIDE GLUCOSE 523 MG/DL (70-105)
[2017-12-09] MEDS: WARFARIN SOD 3 MG TAB PO (17:21)
[2017-12-09 17:50] LABS: BEDSIDE GLUCOSE CONFIRMATION 536 MG/DL (LESS THAN 200)
[2017-12-09] MEDS: MORPHINE 4 MG/ML 1ML VIAL/SYRINGE (J2270) IV ×2 (19:03→21:55)
[2017-12-09 21:08] LABS: BEDSIDE GLUCOSE CONFIRMATION 575 MG/DL (LESS THAN 200)
[2017-12-09] MEDS: ROSUVASTATIN 10 MG TAB (CRESTOR) PO (22:00)
[2017-12-10] MEDS: MORPHINE 4 MG/ML 1ML VIAL/SYRINGE (J2270) IV ×4 (00:34→21:39)
[2017-12-10] MEDS: PERCOCET 5MG/325MG TAB PO ×2 (04:20→12:44)
[2017-12-10] MEDS: ceFAZolin SOD 1 GM in D5W MINI-BAG PLUS 50 ML IV ×3 (04:20→21:36)
[2017-12-10] MEDS: LEVOTHYROXINE 100MCG TABLET (0.1MG) PO (05:53)
[2017-12-10 06:00] LABS: BEDSIDE GLUCOSE 403 MG/DL (70-105)
[2017-12-10 07:50] LABS: PROTHROMBIN TIME 19.5 SECONDS (12.4-14.5)
[2017-12-10] MEDS: HumaLOG INSULIN (NovoLOG) PER UNIT SC ×4 (08:26→21:00)
[2017-12-10] MEDS: NICOTINE 14 MG/24 HR TRANSDERMAL TD ×2 (08:26→20:27)
[2017-12-10] MEDS: LEVEMIR (INSULIN DETEMIR) 1 UNITS/0.01ML SC ×2 (08:27→21:38)
[2017-12-10] MEDS: FAMOTIDINE 20 MG TAB PO ×2 (08:27→21:37)
[2017-12-10] MEDS: POTASSIUM CHLORIDE 10 MEQ SR TABLET PO (08:27)
[2017-12-10] MEDS: FUROSEMIDE 80 MG TAB PO ×2 (08:27→16:24)
[2017-12-10] MEDS: PREGABALIN 75 MG CAP(LYRICA) PO ×2 (08:27→21:38)
[2017-12-10] MEDS: ASPIRIN 81 MG ENTERIC TAB PO (08:27)
[2017-12-10] MEDS: LORazepam 1 MG TAB PO ×2 (08:28→21:38)
[2017-12-10] MEDS: ENTRESTO 24-26MG TABLET (SACUBITRIL/VALSARTAN) PO ×2 (08:28→21:38)
[2017-12-10] MEDS: AQUAPHOR **100GM** OINT TOP ×3 (08:28→21:37)
[2017-12-10] MEDS: CARVedilol 6.25 MG TAB PO ×2 (08:28→21:38)
[2017-12-10] MEDS: DICLOFENAC EPOLAMINE 1.3 % PATCH TOP ×2 (08:29→21:37)
[2017-12-10] MEDS: NYSTATIN 100,000 UNITS/GM TOPICAL PWD 15 GM TOP (08:29)
[2017-12-10 12:03] LABS: BEDSIDE GLUCOSE 360 MG/DL (70-105)
[2017-12-10] MEDS: WARFARIN SOD 2 MG TAB PO (16:24)
[2017-12-10] MEDS: WARFARIN SOD 3 MG TAB PO (16:24)
[2017-12-10 16:45] LABS: BEDSIDE GLUCOSE 195 MG/DL (70-105)
[2017-12-10 20:33] LABS: BEDSIDE GLUCOSE 221 MG/DL (70-105)
[2017-12-10] MEDS: NICOTINE POLACRILEX 2 MG GUM PO (21:37)
[2017-12-10] MEDS: ROSUVASTATIN 10 MG TAB (CRESTOR) PO (21:37)
[2017-12-11] MEDS: SODIUM CHLORIDE 0.9% 1000 ML IV ×2 (06:00→06:43)
[2017-12-11] MEDS: LEVOTHYROXINE 100MCG TABLET (0.1MG) PO (06:05)
[2017-12-11] MEDS: ceFAZolin SOD 1 GM in D5W MINI-BAG PLUS 50 ML IV ×3 (06:05→21:27)
[2017-12-11 07:06] LABS: BASO # 0.1 10^3/uL (0.0-0.2); BASO % 0.8 % (0.0-1.0); EOS # 0.1 10^3/uL (0.0-0.50); HEMATOCRIT 36.3 % (36.0-47.0); HEMOGLOBIN 11.7 g/dl (12.0-15.5); IMMATURE GRANULOCYTE % 4.5 % (0-3.0); LYMPH # 1.8 10^3/uL (1.5-4.5); LYMPH % 24.4 % (24.0-44.0); MEAN CORPUSCULAR HEMOGLOBIN 28.3 pg (27.0-33.0); MEAN CORPUSCULAR HGB CONC 32.2 g/dl (32.0-36.5); MEAN CORPUSCULAR VOLUME 87.7 fl (80.0-96.0); MONO # 0.5 10^3/uL (0.0-0.8); MONO % 6.8 % (0.0-5.0); NEUTROPHILS # 4.6 10^3/uL (1.8-7.7); NEUTROPHILS % 62.5 % (36.0-66.0); PLATELET COUNT, AUTOMATED 363 10^3/uL (150-450); RED BLOOD COUNT 4.14 10^6/uL (4.00-5.40); RED CELL DISTRIBUTION WIDTH 16.2 % (11.5-14.5); WHITE BLOOD COUNT 7.3 10^3/uL (4.0-10.0)
[2017-12-11 07:18] LABS: INR 1.82; PROTHROMBIN TIME 21.7 SECONDS (12.4-14.5)
[2017-12-11 07:28] LABS: ANION GAP 8 MEQ/L (8-16); BLOOD UREA NITROGEN 29 MG/DL (7-18); CARBON DIOXIDE LEVEL 32 MEQ/L (21-32); CHLORIDE LEVEL 99 MEQ/L (98-107); CREATININE FOR GFR 1.01 MG/DL (0.55-1.30); GLOMERULAR FILTRATION RATE > 60.0 (>51); GLUCOSE, FASTING 212 MG/DL (70-100); POTASSIUM SERUM 3.8 MEQ/L (3.5-5.1); SODIUM LEVEL 139 MEQ/L (136-145)
[2017-12-11] MEDS: CARVedilol 6.25 MG TAB PO ×2 (08:21→23:14)
[2017-12-11] MEDS: DICLOFENAC EPOLAMINE 1.3 % PATCH TOP ×4 (08:33→21:28)
[2017-12-11] MEDS: FUROSEMIDE 80 MG TAB PO ×2 (08:34→17:19)
[2017-12-11] MEDS: ENTRESTO 24-26MG TABLET (SACUBITRIL/VALSARTAN) PO ×2 (08:34→23:14)
[2017-12-11] MEDS: ASPIRIN 81 MG ENTERIC TAB PO (08:34)
[2017-12-11] MEDS: LEVEMIR (INSULIN DETEMIR) 1 UNITS/0.01ML SC ×2 (08:34→21:28)
[2017-12-11] MEDS: LORazepam 1 MG TAB PO ×2 (08:34→21:27)
[2017-12-11] MEDS: PREGABALIN 75 MG CAP(LYRICA) PO ×2 (08:34→21:27)
[2017-12-11] MEDS: FAMOTIDINE 20 MG TAB PO ×2 (08:34→21:27)
[2017-12-11] MEDS: HumaLOG INSULIN (NovoLOG) PER UNIT SC ×4 (08:34→21:29)
[2017-12-11] MEDS: POTASSIUM CHLORIDE 10 MEQ SR TABLET PO (08:34)
[2017-12-11] MEDS: AQUAPHOR **100GM** OINT TOP ×3 (08:36→21:28)
[2017-12-11] MEDS: NICOTINE 14 MG/24 HR TRANSDERMAL TD (08:36)
[2017-12-11] MEDS: NYSTATIN 100,000 UNITS/GM TOPICAL PWD 15 GM TOP (08:36)
[2017-12-11 11:42] LABS: BEDSIDE GLUCOSE > 600 MG/DL (70-105)
[2017-12-11 12:04] LABS: BEDSIDE GLUCOSE 306 MG/DL (70-105)
[2017-12-11] MEDS: PERCOCET 5MG/325MG TAB PO (13:28)
[2017-12-11 17:13] LABS: BEDSIDE GLUCOSE 247 MG/DL (70-105)
[2017-12-11] MEDS: WARFARIN SOD 3 MG TAB PO (17:19)
[2017-12-11 20:32] LABS: BEDSIDE GLUCOSE 277 MG/DL (70-105)
[2017-12-11] MEDS: ROSUVASTATIN 10 MG TAB (CRESTOR) PO (21:27)
[2017-12-11] MEDS: MORPHINE 4 MG/ML 1ML VIAL/SYRINGE (J2270) IV (22:36)
[2017-12-12] MEDS: LEVOTHYROXINE 100MCG TABLET (0.1MG) PO (05:42)
[2017-12-12] MEDS: ceFAZolin SOD 1 GM in D5W MINI-BAG PLUS 50 ML IV ×3 (05:42→20:45)
[2017-12-12 06:42] LABS: BASO # 0.1 10^3/uL (0.0-0.2); BASO % 1.8 % (0.0-1.0); EOS # 0.1 10^3/uL (0.0-0.50); EOS % 2.1 % (0.0-3.0); HEMATOCRIT 34.7 % (36.0-47.0); HEMOGLOBIN 11.3 g/dl (12.0-15.5); IMMATURE GRANULOCYTE % 4.6 % (0-3.0); LYMPH # 1.7 10^3/uL (1.5-4.5); LYMPH % 30.4 % (24.0-44.0); MEAN CORPUSCULAR HEMOGLOBIN 28.1 pg (27.0-33.0); MEAN CORPUSCULAR HGB CONC 32.6 g/dl (32.0-36.5); MEAN CORPUSCULAR VOLUME 86.3 fl (80.0-96.0); MONO # 0.6 10^3/uL (0.0-0.8); NEUTROPHILS # 2.8 10^3/uL (1.8-7.7); NEUTROPHILS % 50.1 % (36.0-66.0); PLATELET COUNT, AUTOMATED 305 10^3/uL (150-450); RED BLOOD COUNT 4.02 10^6/uL (4.00-5.40); RED CELL DISTRIBUTION WIDTH 16.4 % (11.5-14.5); WHITE BLOOD COUNT 5.7 10^3/uL (4.0-10.0)
[2017-12-12 07:01] LABS: ANION GAP 8 MEQ/L (8-16); BLOOD UREA NITROGEN 25 MG/DL (7-18); CALCIUM LEVEL 7.9 MG/DL (8.5-10.1); CARBON DIOXIDE LEVEL 29 MEQ/L (21-32); CHLORIDE LEVEL 103 MEQ/L (98-107); CREATININE FOR GFR 0.84 MG/DL (0.55-1.30); GLOMERULAR FILTRATION RATE > 60.0 (>51); GLUCOSE, FASTING 207 MG/DL (70-100); POTASSIUM SERUM 3.7 MEQ/L (3.5-5.1); SODIUM LEVEL 140 MEQ/L (136-145)
[2017-12-12 07:29] LABS: INR 2.06; PROTHROMBIN TIME 23.9 SECONDS (12.4-14.5)
[2017-12-12] MEDS: FUROSEMIDE 80 MG TAB PO ×2 (07:33→17:26)
[2017-12-12] MEDS: HumaLOG INSULIN (NovoLOG) PER UNIT SC ×4 (08:56→20:44)
[2017-12-12] MEDS: PERCOCET 5MG/325MG TAB PO ×2 (08:56→17:22)
[2017-12-12] MEDS: DICLOFENAC EPOLAMINE 1.3 % PATCH TOP ×2 (09:00→20:45)
[2017-12-12] MEDS: FAMOTIDINE 20 MG TAB PO ×2 (09:13→20:44)
[2017-12-12] MEDS: MORPHINE 4 MG/ML 1ML VIAL/SYRINGE (J2270) IV ×4 (09:13→20:07)
[2017-12-12] MEDS: POTASSIUM CHLORIDE 10 MEQ SR TABLET PO (09:14)
[2017-12-12] MEDS: LORazepam 1 MG TAB PO ×2 (09:14→20:43)
[2017-12-12] MEDS: PREGABALIN 75 MG CAP(LYRICA) PO ×2 (09:14→20:44)
[2017-12-12] MEDS: CARVedilol 6.25 MG TAB PO ×2 (09:14→20:43)
[2017-12-12] MEDS: ENTRESTO 24-26MG TABLET (SACUBITRIL/VALSARTAN) PO ×2 (09:14→20:44)
[2017-12-12] MEDS: ASPIRIN 81 MG ENTERIC TAB PO (09:14)
[2017-12-12] MEDS: NICOTINE 14 MG/24 HR TRANSDERMAL TD (09:15)
[2017-12-12] MEDS: LEVEMIR (INSULIN DETEMIR) 1 UNITS/0.01ML SC ×2 (09:15→20:46)
[2017-12-12] MEDS: AQUAPHOR **100GM** OINT TOP ×3 (09:15→20:45)
[2017-12-12] MEDS: NYSTATIN 100,000 UNITS/GM TOPICAL PWD 15 GM TOP (09:16)
[2017-12-12 12:03] LABS: BEDSIDE GLUCOSE 269 MG/DL (70-105)
[2017-12-12 16:45] LABS: BEDSIDE GLUCOSE 239 MG/DL (70-105)
[2017-12-12] MEDS: WARFARIN SOD 3 MG TAB PO (17:22)
[2017-12-12 20:06] LABS: BEDSIDE GLUCOSE 203 MG/DL (70-105)
[2017-12-12] MEDS: ROSUVASTATIN 10 MG TAB (CRESTOR) PO (20:44)
[2017-12-13] MEDS: PERCOCET 5MG/325MG TAB PO ×3 (00:28→23:22)
[2017-12-13] MEDS: ceFAZolin SOD 1 GM in D5W MINI-BAG PLUS 50 ML IV ×2 (05:34→13:26)
[2017-12-13] MEDS: LEVOTHYROXINE 100MCG TABLET (0.1MG) PO (05:34)
[2017-12-13 07:14] LABS: BASO # 0.1 10^3/uL (0.0-0.2); BASO % 1.3 % (0.0-1.0); EOS # 0.2 10^3/uL (0.0-0.50); EOS % 3.4 % (0.0-3.0); HEMATOCRIT 36.8 % (36.0-47.0); HEMOGLOBIN 11.6 g/dl (12.0-15.5); IMMATURE GRANULOCYTE % 3.2 % (0-3.0); LYMPH # 1.7 10^3/uL (1.5-4.5); LYMPH % 27.7 % (24.0-44.0); MEAN CORPUSCULAR HGB CONC 31.5 g/dl (32.0-36.5); MEAN CORPUSCULAR VOLUME 88.7 fl (80.0-96.0); MONO # 0.5 10^3/uL (0.0-0.8); MONO % 8.2 % (0.0-5.0); NEUTROPHILS # 3.5 10^3/uL (1.8-7.7); NEUTROPHILS % 56.2 % (36.0-66.0); PLATELET COUNT, AUTOMATED 327 10^3/uL (150-450); RED BLOOD COUNT 4.15 10^6/uL (4.00-5.40); RED CELL DISTRIBUTION WIDTH 16.5 % (11.5-14.5); WHITE BLOOD COUNT 6.2 10^3/uL (4.0-10.0)
[2017-12-13 07:26] LABS: INR 1.84; PROTHROMBIN TIME 21.6 SECONDS (12.1-14.4)
[2017-12-13 07:29] LABS: ANION GAP 5 MEQ/L (8-16); BLOOD UREA NITROGEN 23 MG/DL (7-18); CALCIUM LEVEL 8.8 MG/DL (8.5-10.1); CARBON DIOXIDE LEVEL 34 MEQ/L (21-32); CHLORIDE LEVEL 100 MEQ/L (98-107); CREATININE FOR GFR 0.87 MG/DL (0.55-1.30); GLOMERULAR FILTRATION RATE > 60.0 (>51); GLUCOSE, FASTING 111 MG/DL (70-100); POTASSIUM SERUM 3.9 MEQ/L (3.5-5.1); SODIUM LEVEL 139 MEQ/L (136-145)
[2017-12-13] MEDS: ENTRESTO 24-26MG TABLET (SACUBITRIL/VALSARTAN) PO ×2 (08:14→21:59)
[2017-12-13] MEDS: HumaLOG INSULIN (NovoLOG) PER UNIT SC ×4 (08:14→22:01)
[2017-12-13] MEDS: FAMOTIDINE 20 MG TAB PO ×2 (08:14→22:00)
[2017-12-13] MEDS: PREGABALIN 75 MG CAP(LYRICA) PO ×2 (08:14→21:59)
[2017-12-13] MEDS: FUROSEMIDE 80 MG TAB PO ×2 (08:15→16:50)
[2017-12-13] MEDS: ASPIRIN 81 MG ENTERIC TAB PO (08:15)
[2017-12-13] MEDS: POTASSIUM CHLORIDE 10 MEQ SR TABLET PO (08:15)
[2017-12-13] MEDS: NICOTINE 14 MG/24 HR TRANSDERMAL TD (08:15)
[2017-12-13] MEDS: LORazepam 1 MG TAB PO ×2 (08:15→21:59)
[2017-12-13] MEDS: CARVedilol 6.25 MG TAB PO ×2 (08:15→22:00)
[2017-12-13] MEDS: AQUAPHOR **100GM** OINT TOP ×3 (08:16→22:01)
[2017-12-13] MEDS: NYSTATIN 100,000 UNITS/GM TOPICAL PWD 15 GM TOP (08:16)
[2017-12-13] MEDS: DICLOFENAC EPOLAMINE 1.3 % PATCH TOP ×2 (08:16→21:00)
[2017-12-13] MEDS: LEVEMIR (INSULIN DETEMIR) 1 UNITS/0.01ML SC ×2 (08:17→22:01)
[2017-12-13 11:45] LABS: BEDSIDE GLUCOSE 205 MG/DL (70-105)
[2017-12-13 16:34] LABS: BEDSIDE GLUCOSE 235 MG/DL (70-105)
[2017-12-13] MEDS: WARFARIN SOD 3 MG TAB PO (16:49)
[2017-12-13] MEDS: CEPHALEXIN 500 MG CAP PO ×2 (16:49→21:59)
[2017-12-13] MEDS ORDERED: LEVEMIR (INSULIN DETEMIR) 1 UNITS/0.01ML SC (21:00)
[2017-12-13 21:28] LABS: BEDSIDE GLUCOSE 251 MG/DL (70-105)
[2017-12-13] MEDS: ROSUVASTATIN 10 MG TAB (CRESTOR) PO (21:59)
[2017-12-14] MEDS: LEVOTHYROXINE 100MCG TABLET (0.1MG) PO (05:51)
[2017-12-14] MEDS: PERCOCET 5MG/325MG TAB PO ×4 (05:52→23:44)
[2017-12-14 07:37] LABS: BASO # 0.1 10^3/uL (0.0-0.2); BASO % 1.1 % (0.0-1.0); EOS # 0.1 10^3/uL (0.0-0.50); EOS % 2.3 % (0.0-3.0); HEMATOCRIT 38.4 % (36.0-47.0); HEMOGLOBIN 12.3 g/dl (12.0-15.5); LYMPH # 1.7 10^3/uL (1.5-4.5); LYMPH % 30.6 % (24.0-44.0); MEAN CORPUSCULAR HEMOGLOBIN 27.6 pg (27.0-33.0); MEAN CORPUSCULAR VOLUME 86.3 fl (80.0-96.0); MONO # 0.4 10^3/uL (0.0-0.8); MONO % 7.2 % (0.0-5.0); NEUTROPHILS # 3.2 10^3/uL (1.8-7.7); NEUTROPHILS % 56.8 % (36.0-66.0); PLATELET COUNT, AUTOMATED 364 10^3/uL (150-450); RED BLOOD COUNT 4.45 10^6/uL (4.00-5.40); RED CELL DISTRIBUTION WIDTH 16.5 % (11.5-14.5); WHITE BLOOD COUNT 5.6 10^3/uL (4.0-10.0)
[2017-12-14 07:46] LABS: INR 1.74; PROTHROMBIN TIME 20.6 SECONDS (12.1-14.4)
[2017-12-14 07:57] LABS: ANION GAP 10 MEQ/L (8-16); BLOOD UREA NITROGEN 26 MG/DL (7-18); CALCIUM LEVEL 8.6 MG/DL (8.5-10.1); CARBON DIOXIDE LEVEL 27 MEQ/L (21-32); CHLORIDE LEVEL 103 MEQ/L (98-107); CREATININE FOR GFR 0.93 MG/DL (0.55-1.30); GLOMERULAR FILTRATION RATE > 60.0 (>51); GLUCOSE, FASTING 265 MG/DL (70-100); POTASSIUM SERUM 4.7 MEQ/L (3.5-5.1); SODIUM LEVEL 140 MEQ/L (136-145)
[2017-12-14] MEDS: LEVEMIR (INSULIN DETEMIR) 1 UNITS/0.01ML SC ×2 (08:28→21:21)
[2017-12-14] MEDS: DICLOFENAC EPOLAMINE 1.3 % PATCH TOP ×2 (08:28→21:24)
[2017-12-14] MEDS: HumaLOG INSULIN (NovoLOG) PER UNIT SC ×4 (08:28→21:13)
[2017-12-14] MEDS: NICOTINE 14 MG/24 HR TRANSDERMAL TD (08:31)
[2017-12-14] MEDS: PREGABALIN 75 MG CAP(LYRICA) PO ×2 (08:31→21:20)
[2017-12-14] MEDS: ASPIRIN 81 MG ENTERIC TAB PO (08:31)
[2017-12-14] MEDS: ENTRESTO 24-26MG TABLET (SACUBITRIL/VALSARTAN) PO ×2 (08:32→21:20)
[2017-12-14] MEDS: FUROSEMIDE 80 MG TAB PO ×3 (08:33→17:19)
[2017-12-14] MEDS: CEPHALEXIN 500 MG CAP PO ×4 (08:33→21:20)
[2017-12-14] MEDS: FAMOTIDINE 20 MG TAB PO ×2 (08:33→21:20)
[2017-12-14] MEDS: POTASSIUM CHLORIDE 10 MEQ SR TABLET PO (08:34)
[2017-12-14] MEDS: CARVedilol 6.25 MG TAB PO ×2 (08:34→21:21)
[2017-12-14] MEDS: LORazepam 1 MG TAB PO ×2 (08:34→21:20)
[2017-12-14] MEDS: AQUAPHOR **100GM** OINT TOP ×3 (08:35→21:00)
[2017-12-14] MEDS: NYSTATIN 100,000 UNITS/GM TOPICAL PWD 15 GM TOP (08:35)
[2017-12-14 11:27] LABS: BEDSIDE GLUCOSE 271 MG/DL (70-105)
[2017-12-14 16:44] LABS: BEDSIDE GLUCOSE 105 MG/DL (70-105)
[2017-12-14] MEDS: WARFARIN SOD 5 MG TAB PO (17:19)
[2017-12-14 20:24] LABS: BEDSIDE GLUCOSE 236 MG/DL (70-105)
[2017-12-14] MEDS: ROSUVASTATIN 10 MG TAB (CRESTOR) PO (21:20)
[2017-12-15] MEDS: PERCOCET 5MG/325MG TAB PO ×3 (05:43→22:14)
[2017-12-15] MEDS: LEVOTHYROXINE 100MCG TABLET (0.1MG) PO (05:44)
[2017-12-15 06:05] LABS: BASO # 0.1 10^3/uL (0.0-0.2); BASO % 1.4 % (0.0-1.0); EOS # 0.1 10^3/uL (0.0-0.50); EOS % 1.9 % (0.0-3.0); HEMATOCRIT 33.9 % (36.0-47.0); HEMOGLOBIN 11.1 g/dl (12.0-15.5); IMMATURE GRANULOCYTE % 0.5 % (0-3.0); LYMPH # 1.9 10^3/uL (1.5-4.5); LYMPH % 32.9 % (24.0-44.0); MEAN CORPUSCULAR HGB CONC 32.7 g/dl (32.0-36.5); MEAN CORPUSCULAR VOLUME 85.6 fl (80.0-96.0); MONO # 0.5 10^3/uL (0.0-0.8); MONO % 8.3 % (0.0-5.0); NEUTROPHILS # 3.2 10^3/uL (1.8-7.7); PLATELET COUNT, AUTOMATED 275 10^3/uL (150-450); RED BLOOD COUNT 3.96 10^6/uL (4.00-5.40); RED CELL DISTRIBUTION WIDTH 16.5 % (11.5-14.5); WHITE BLOOD COUNT 5.9 10^3/uL (4.0-10.0)
[2017-12-15 06:16] LABS: INR 1.77; PROTHROMBIN TIME 20.9 SECONDS (12.1-14.4)
[2017-12-15 06:28] LABS: ANION GAP 8 MEQ/L (8-16); BLOOD UREA NITROGEN 31 MG/DL (7-18); CALCIUM LEVEL 8.5 MG/DL (8.5-10.1); CARBON DIOXIDE LEVEL 30 MEQ/L (21-32); CHLORIDE LEVEL 102 MEQ/L (98-107); CREATININE FOR GFR 0.91 MG/DL (0.55-1.30); GLOMERULAR FILTRATION RATE > 60.0 (>51); GLUCOSE, FASTING 233 MG/DL (70-100); POTASSIUM SERUM 3.8 MEQ/L (3.5-5.1); SODIUM LEVEL 140 MEQ/L (136-145)
[2017-12-15] MEDS: LORazepam 1 MG TAB PO ×2 (08:23→21:08)
[2017-12-15] MEDS: PREGABALIN 75 MG CAP(LYRICA) PO ×2 (08:23→21:07)
[2017-12-15 08:44] LABS: BEDSIDE GLUCOSE 311 MG/DL (70-105)
[2017-12-15] MEDS: FUROSEMIDE 80 MG TAB PO ×2 (09:00→16:57)
[2017-12-15] MEDS: DICLOFENAC EPOLAMINE 1.3 % PATCH TOP ×2 (09:00→21:00)
[2017-12-15] MEDS: ENTRESTO 24-26MG TABLET (SACUBITRIL/VALSARTAN) PO ×2 (09:00→21:08)
[2017-12-15] MEDS: CARVedilol 6.25 MG TAB PO ×2 (09:00→21:00)
[2017-12-15] MEDS: NICOTINE 14 MG/24 HR TRANSDERMAL TD (09:00)
[2017-12-15] MEDS: FAMOTIDINE 20 MG TAB PO ×2 (09:09→21:07)
[2017-12-15] MEDS: HumaLOG INSULIN (NovoLOG) PER UNIT SC ×4 (09:09→21:00)
[2017-12-15] MEDS: ASPIRIN 81 MG ENTERIC TAB PO (09:09)
[2017-12-15] MEDS: CEPHALEXIN 500 MG CAP PO ×4 (09:09→21:07)
[2017-12-15] MEDS: LEVEMIR (INSULIN DETEMIR) 1 UNITS/0.01ML SC ×2 (09:10→21:09)
[2017-12-15] MEDS: POTASSIUM CHLORIDE 10 MEQ SR TABLET PO (09:10)
[2017-12-15] MEDS: AQUAPHOR **100GM** OINT TOP ×3 (09:11→21:09)
[2017-12-15] MEDS: NYSTATIN 100,000 UNITS/GM TOPICAL PWD 15 GM TOP (09:12)
[2017-12-15 11:48] LABS: BEDSIDE GLUCOSE 231 MG/DL (70-105)
[2017-12-15 16:26] LABS: BEDSIDE GLUCOSE 158 MG/DL (70-105)
[2017-12-15] MEDS: WARFARIN SOD 7.5 MG TAB PO (16:57)
[2017-12-15 20:12] LABS: BEDSIDE GLUCOSE 222 MG/DL (70-105)
[2017-12-15] MEDS: ROSUVASTATIN 10 MG TAB (CRESTOR) PO (21:11)
[2017-12-16] MEDS: LEVOTHYROXINE 100MCG TABLET (0.1MG) PO (04:48)
[2017-12-16] MEDS: PERCOCET 5MG/325MG TAB PO ×3 (04:49→17:43)
[2017-12-16 06:14] LABS: BASO # 0.1 10^3/uL (0.0-0.2); BASO % 1.2 % (0.0-1.0); EOS # 0.1 10^3/uL (0.0-0.50); EOS % 1.8 % (0.0-3.0); HEMOGLOBIN 10.6 g/dl (12.0-15.5); IMMATURE GRANULOCYTE % 0.7 % (0-3.0); LYMPH # 1.6 10^3/uL (1.5-4.5); LYMPH % 27.7 % (24.0-44.0); MEAN CORPUSCULAR HGB CONC 32.1 g/dl (32.0-36.5); MEAN CORPUSCULAR VOLUME 87.3 fl (80.0-96.0); MONO # 0.5 10^3/uL (0.0-0.8); MONO % 8.2 % (0.0-5.0); NEUTROPHILS # 3.5 10^3/uL (1.8-7.7); NEUTROPHILS % 60.4 % (36.0-66.0); PLATELET COUNT, AUTOMATED 255 10^3/uL (150-450); RED BLOOD COUNT 3.78 10^6/uL (4.00-5.40); RED CELL DISTRIBUTION WIDTH 16.8 % (11.5-14.5); WHITE BLOOD COUNT 5.7 10^3/uL (4.0-10.0)
[2017-12-16 06:22] LABS: INR 2.26; PROTHROMBIN TIME 25.4 SECONDS (12.1-14.4)
[2017-12-16 06:31] LABS: ANION GAP 8 MEQ/L (8-16); BLOOD UREA NITROGEN 31 MG/DL (7-18); CALCIUM LEVEL 8.3 MG/DL (8.5-10.1); CARBON DIOXIDE LEVEL 28 MEQ/L (21-32); CHLORIDE LEVEL 105 MEQ/L (98-107); CREATININE FOR GFR 0.95 MG/DL (0.55-1.30); GLOMERULAR FILTRATION RATE > 60.0 (>51); GLUCOSE, FASTING 180 MG/DL (70-100); POTASSIUM SERUM 3.9 MEQ/L (3.5-5.1); SODIUM LEVEL 141 MEQ/L (136-145)
[2017-12-16] MEDS: DICLOFENAC EPOLAMINE 1.3 % PATCH TOP ×2 (09:00→21:00)
[2017-12-16] MEDS: NICOTINE 14 MG/24 HR TRANSDERMAL TD (09:00)
[2017-12-16] MEDS: CARVedilol 6.25 MG TAB PO ×3 (09:00→21:14)
[2017-12-16] MEDS: PREGABALIN 75 MG CAP(LYRICA) PO ×2 (09:22→21:14)
[2017-12-16] MEDS: HumaLOG INSULIN (NovoLOG) PER UNIT SC ×4 (09:22→21:00)
[2017-12-16] MEDS: POTASSIUM CHLORIDE 10 MEQ SR TABLET PO (09:23)
[2017-12-16] MEDS: FAMOTIDINE 20 MG TAB PO ×2 (09:23→21:14)
[2017-12-16] MEDS: LORazepam 1 MG TAB PO ×2 (09:23→21:15)
[2017-12-16] MEDS: ENTRESTO 24-26MG TABLET (SACUBITRIL/VALSARTAN) PO ×2 (09:23→21:15)
[2017-12-16] MEDS: ASPIRIN 81 MG ENTERIC TAB PO (09:23)
[2017-12-16] MEDS: FUROSEMIDE 80 MG TAB PO ×2 (09:23→17:43)
[2017-12-16] MEDS: CEPHALEXIN 500 MG CAP PO ×4 (09:23→21:14)
[2017-12-16] MEDS: LEVEMIR (INSULIN DETEMIR) 1 UNITS/0.01ML SC ×2 (09:24→21:00)
[2017-12-16] MEDS: AQUAPHOR **100GM** OINT TOP ×3 (09:25→21:17)
[2017-12-16] MEDS: NYSTATIN 100,000 UNITS/GM TOPICAL PWD 15 GM TOP (09:26)
[2017-12-16 12:02] LABS: BEDSIDE GLUCOSE 202 MG/DL (70-105)
[2017-12-16 16:50] LABS: BEDSIDE GLUCOSE 64 MG/DL (70-105)
[2017-12-16] MEDS: WARFARIN SOD 7.5 MG TAB PO (17:43)
[2017-12-16] MEDS ORDERED: LORazepam 1 MG TAB PO (21:00)
[2017-12-16 21:06] LABS: BEDSIDE GLUCOSE 173 MG/DL (70-105)
[2017-12-16] MEDS: ROSUVASTATIN 10 MG TAB (CRESTOR) PO (21:14)
[2017-12-17] MEDS: PERCOCET 5MG/325MG TAB PO ×3 (05:54→21:28)
[2017-12-17] MEDS: LEVOTHYROXINE 100MCG TABLET (0.1MG) PO (05:54)
[2017-12-17 07:07] LABS: BASO # 0.1 10^3/uL (0.0-0.2); BASO % 1.1 % (0.0-1.0); EOS # 0.1 10^3/uL (0.0-0.50); EOS % 2.6 % (0.0-3.0); HEMATOCRIT 33.2 % (36.0-47.0); HEMOGLOBIN 10.5 g/dl (12.0-15.5); IMMATURE GRANULOCYTE % 0.6 % (0-3.0); LYMPH # 1.5 10^3/uL (1.5-4.5); LYMPH % 32.5 % (24.0-44.0); MEAN CORPUSCULAR HGB CONC 31.6 g/dl (32.0-36.5); MEAN CORPUSCULAR VOLUME 88.5 fl (80.0-96.0); MONO # 0.5 10^3/uL (0.0-0.8); MONO % 9.6 % (0.0-5.0); NEUTROPHILS # 2.5 10^3/uL (1.8-7.7); NEUTROPHILS % 53.6 % (36.0-66.0); PLATELET COUNT, AUTOMATED 235 10^3/uL (150-450); RED BLOOD COUNT 3.75 10^6/uL (4.00-5.40); RED CELL DISTRIBUTION WIDTH 16.9 % (11.5-14.5); WHITE BLOOD COUNT 4.7 10^3/uL (4.0-10.0)
[2017-12-17 07:20] LABS: PROTHROMBIN TIME 34.3 SECONDS (12.1-14.4)
[2017-12-17 07:49] LABS: ANION GAP 7 MEQ/L (8-16); BLOOD UREA NITROGEN 30 MG/DL (7-18); CALCIUM LEVEL 7.7 MG/DL (8.5-10.1); CARBON DIOXIDE LEVEL 29 MEQ/L (21-32); CHLORIDE LEVEL 107 MEQ/L (98-107); CREATININE FOR GFR 0.89 MG/DL (0.55-1.30); GLOMERULAR FILTRATION RATE > 60.0 (>51); GLUCOSE, FASTING 158 MG/DL (70-100); POTASSIUM SERUM 3.8 MEQ/L (3.5-5.1); SODIUM LEVEL 143 MEQ/L (136-145)
[2017-12-17] MEDS: ENTRESTO 24-26MG TABLET (SACUBITRIL/VALSARTAN) PO ×2 (08:48→21:25)
[2017-12-17] MEDS: LORazepam 1 MG TAB PO ×2 (08:48→21:25)
[2017-12-17] MEDS: FAMOTIDINE 20 MG TAB PO ×2 (08:48→21:25)
[2017-12-17] MEDS: FUROSEMIDE 80 MG TAB PO ×2 (08:48→17:28)
[2017-12-17] MEDS: POTASSIUM CHLORIDE 10 MEQ SR TABLET PO (08:48)
[2017-12-17] MEDS: PREGABALIN 75 MG CAP(LYRICA) PO ×2 (08:49→21:23)
[2017-12-17] MEDS: CEPHALEXIN 500 MG CAP PO ×4 (08:49→21:23)
[2017-12-17] MEDS: ASPIRIN 81 MG ENTERIC TAB PO (08:49)
[2017-12-17] MEDS: CARVedilol 6.25 MG TAB PO ×2 (08:49→21:25)
[2017-12-17] MEDS: HumaLOG INSULIN (NovoLOG) PER UNIT SC ×4 (08:50→21:29)
[2017-12-17] MEDS: NICOTINE 14 MG/24 HR TRANSDERMAL TD (08:50)
[2017-12-17] MEDS: LEVEMIR (INSULIN DETEMIR) 1 UNITS/0.01ML SC ×2 (08:50→21:26)
[2017-12-17] MEDS: DICLOFENAC EPOLAMINE 1.3 % PATCH TOP ×2 (08:51→21:30)
[2017-12-17] MEDS: AQUAPHOR **100GM** OINT TOP ×3 (08:51→21:29)
[2017-12-17] MEDS: NYSTATIN 100,000 UNITS/GM TOPICAL PWD 15 GM TOP (08:52)
[2017-12-17 12:33] LABS: BEDSIDE GLUCOSE 115 MG/DL (70-105)
[2017-12-17 17:13] LABS: BEDSIDE GLUCOSE 241 MG/DL (70-105)
[2017-12-17] MEDS: WARFARIN SOD 3 MG TAB PO (17:27)
[2017-12-17 20:21] LABS: BEDSIDE GLUCOSE 197 MG/DL (70-105)
[2017-12-17] MEDS: ROSUVASTATIN 10 MG TAB (CRESTOR) PO (21:23)
[2017-12-18] MEDS: PERCOCET 5MG/325MG TAB PO ×3 (03:31→17:28)
[2017-12-18] MEDS: LEVOTHYROXINE 100MCG TABLET (0.1MG) PO (05:36)
[2017-12-18 07:50] LABS: BEDSIDE GLUCOSE 256 MG/DL (70-105)
[2017-12-18] MEDS: FAMOTIDINE 20 MG TAB PO ×2 (08:30→21:19)
[2017-12-18] MEDS: ASPIRIN 81 MG ENTERIC TAB PO (08:30)
[2017-12-18] MEDS: HumaLOG INSULIN (NovoLOG) PER UNIT SC ×4 (08:30→21:00)
[2017-12-18] MEDS: LEVEMIR (INSULIN DETEMIR) 1 UNITS/0.01ML SC ×2 (08:30→21:19)
[2017-12-18] MEDS: CEPHALEXIN 500 MG CAP PO ×4 (08:30→21:19)
[2017-12-18] MEDS: PREGABALIN 75 MG CAP(LYRICA) PO ×2 (08:30→21:19)
[2017-12-18] MEDS: LORazepam 1 MG TAB PO ×2 (08:30→21:20)
[2017-12-18] MEDS: ENTRESTO 24-26MG TABLET (SACUBITRIL/VALSARTAN) PO ×2 (08:30→21:19)
[2017-12-18] MEDS: FUROSEMIDE 80 MG TAB PO ×2 (08:30→17:27)
[2017-12-18] MEDS: CARVedilol 6.25 MG TAB PO ×2 (08:31→21:20)
[2017-12-18] MEDS: AQUAPHOR **100GM** OINT TOP ×3 (08:31→21:23)
[2017-12-18] MEDS: DICLOFENAC EPOLAMINE 1.3 % PATCH TOP ×2 (08:31→21:00)
[2017-12-18] MEDS: POTASSIUM CHLORIDE 10 MEQ SR TABLET PO (08:31)
[2017-12-18] MEDS: NICOTINE 14 MG/24 HR TRANSDERMAL TD (08:31)
[2017-12-18] MEDS: NYSTATIN 100,000 UNITS/GM TOPICAL PWD 15 GM TOP (08:32)
[2017-12-18 11:57] LABS: BEDSIDE GLUCOSE 255 MG/DL (70-105)
[2017-12-18 17:02] LABS: BEDSIDE GLUCOSE 104 MG/DL (70-105)
[2017-12-18] MEDS: WARFARIN SOD 3 MG TAB PO (17:27)
[2017-12-18 21:07] LABS: BEDSIDE GLUCOSE 72 MG/DL (70-105)
[2017-12-18] MEDS: ROSUVASTATIN 10 MG TAB (CRESTOR) PO (21:20)
[2017-12-19] MEDS: PERCOCET 5MG/325MG TAB PO ×3 (00:02→17:44)
[2017-12-19] MEDS: LEVOTHYROXINE 100MCG TABLET (0.1MG) PO (05:55)
[2017-12-19] MEDS: HumaLOG INSULIN (NovoLOG) PER UNIT SC ×4 (07:30→22:32)
[2017-12-19 07:48] LABS: BEDSIDE GLUCOSE 43 MG/DL (70-105)
[2017-12-19 07:48] LABS: BEDSIDE GLUCOSE 40 MG/DL (70-105)
[2017-12-19 07:52] LABS: BASO # 0.1 10^3/uL (0.0-0.2); BASO % 1.4 % (0.0-1.0); EOS # 0.1 10^3/uL (0.0-0.50); EOS % 2.4 % (0.0-3.0); HEMATOCRIT 35.1 % (36.0-47.0); HEMOGLOBIN 11.1 g/dl (12.0-15.5); IMMATURE GRANULOCYTE % 0.3 % (0-3.0); LYMPH # 1.6 10^3/uL (1.5-4.5); LYMPH % 27.3 % (24.0-44.0); MEAN CORPUSCULAR HGB CONC 31.6 g/dl (32.0-36.5); MEAN CORPUSCULAR VOLUME 88.6 fl (80.0-96.0); MONO # 0.6 10^3/uL (0.0-0.8); MONO % 9.4 % (0.0-5.0); NEUTROPHILS # 3.5 10^3/uL (1.8-7.7); NEUTROPHILS % 59.2 % (36.0-66.0); PLATELET COUNT, AUTOMATED 245 10^3/uL (150-450); RED BLOOD COUNT 3.96 10^6/uL (4.00-5.40); RED CELL DISTRIBUTION WIDTH 17.2 % (11.5-14.5); WHITE BLOOD COUNT 5.8 10^3/uL (4.0-10.0)
[2017-12-19 07:59] LABS: ANION GAP 7 MEQ/L (8-16); BLOOD UREA NITROGEN 26 MG/DL (7-18); CALCIUM LEVEL 8.3 MG/DL (8.5-10.1); CARBON DIOXIDE LEVEL 31 MEQ/L (21-32); CHLORIDE LEVEL 107 MEQ/L (98-107); CREATININE FOR GFR 0.82 MG/DL (0.55-1.30); GLOMERULAR FILTRATION RATE > 60.0 (>51); GLUCOSE, FASTING 49 MG/DL (70-100); POTASSIUM SERUM 3.8 MEQ/L (3.5-5.1); SODIUM LEVEL 145 MEQ/L (136-145)
[2017-12-19 08:07] LABS: BEDSIDE GLUCOSE CONFIRMATION 60 MG/DL (LESS THAN 200)
[2017-12-19 08:08] LABS: INR 3.42; PROTHROMBIN TIME 35.3 SECONDS (12.1-14.4)
[2017-12-19] MEDS: LEVEMIR (INSULIN DETEMIR) 1 UNITS/0.01ML SC ×2 (08:11→22:30)
[2017-12-19 08:37] LABS: BEDSIDE GLUCOSE 89 MG/DL (70-105)
[2017-12-19] MEDS: NICOTINE 14 MG/24 HR TRANSDERMAL TD (09:00)
[2017-12-19] MEDS: NYSTATIN 100,000 UNITS/GM TOPICAL PWD 15 GM TOP (09:00)
[2017-12-19] MEDS: DICLOFENAC EPOLAMINE 1.3 % PATCH TOP ×2 (09:00→21:00)
[2017-12-19] MEDS: FAMOTIDINE 20 MG TAB PO ×2 (09:34→22:28)
[2017-12-19] MEDS: LORazepam 1 MG TAB PO ×2 (09:34→22:28)
[2017-12-19] MEDS: CEPHALEXIN 500 MG CAP PO ×4 (09:34→22:29)
[2017-12-19] MEDS: ASPIRIN 81 MG ENTERIC TAB PO (09:34)
[2017-12-19] MEDS: ENTRESTO 24-26MG TABLET (SACUBITRIL/VALSARTAN) PO ×2 (09:35→22:29)
[2017-12-19] MEDS: CARVedilol 6.25 MG TAB PO ×2 (09:35→22:30)
[2017-12-19] MEDS: FUROSEMIDE 80 MG TAB PO ×2 (09:35→17:44)
[2017-12-19] MEDS: AQUAPHOR **100GM** OINT TOP ×3 (09:36→22:33)
[2017-12-19] MEDS: POTASSIUM CHLORIDE 10 MEQ SR TABLET PO (09:41)
[2017-12-19] MEDS: PREGABALIN 75 MG CAP(LYRICA) PO ×2 (09:41→22:28)
[2017-12-19 11:54] LABS: BEDSIDE GLUCOSE 201 MG/DL (70-105)
[2017-12-19 17:25] LABS: BEDSIDE GLUCOSE 206 MG/DL (70-105)
[2017-12-19] MEDS: WARFARIN SOD 3 MG TAB PO (17:44)
[2017-12-19 21:41] LABS: BEDSIDE GLUCOSE 318 MG/DL (70-105)
[2017-12-19] MEDS: ROSUVASTATIN 10 MG TAB (CRESTOR) PO (22:29)
[2017-12-20] MEDS: PERCOCET 5MG/325MG TAB PO ×2 (00:52→10:57)
[2017-12-20] MEDS: LEVOTHYROXINE 100MCG TABLET (0.1MG) PO (06:10)
[2017-12-20 07:49] LABS: BEDSIDE GLUCOSE 268 MG/DL (70-105)
[2017-12-20] MEDS: HumaLOG INSULIN (NovoLOG) PER UNIT SC ×2 (08:07→12:47)
[2017-12-20] MEDS: POTASSIUM CHLORIDE 10 MEQ SR TABLET PO (08:08)
[2017-12-20] MEDS: FAMOTIDINE 20 MG TAB PO (08:08)
[2017-12-20] MEDS: PREGABALIN 75 MG CAP(LYRICA) PO (08:08)
[2017-12-20] MEDS: LORazepam 1 MG TAB PO (08:08)
[2017-12-20] MEDS: FUROSEMIDE 80 MG TAB PO (08:08)
[2017-12-20] MEDS: ENTRESTO 24-26MG TABLET (SACUBITRIL/VALSARTAN) PO (08:08)
[2017-12-20] MEDS: CEPHALEXIN 500 MG CAP PO ×2 (08:08→12:55)
[2017-12-20] MEDS: ASPIRIN 81 MG ENTERIC TAB PO (08:09)
[2017-12-20] MEDS: CARVedilol 6.25 MG TAB PO (08:09)
[2017-12-20] MEDS: NICOTINE 14 MG/24 HR TRANSDERMAL TD (08:10)
[2017-12-20] MEDS: AQUAPHOR **100GM** OINT TOP ×2 (08:11→15:57)
[2017-12-20] MEDS: NYSTATIN 100,000 UNITS/GM TOPICAL PWD 15 GM TOP (08:11)
[2017-12-20] MEDS: DICLOFENAC EPOLAMINE 1.3 % PATCH TOP (08:11)
[2017-12-20] MEDS: LEVEMIR (INSULIN DETEMIR) 1 UNITS/0.01ML SC (08:50)
[2017-12-20 12:46] LABS: BEDSIDE GLUCOSE 75 MG/DL (70-105)
== END 2017-12-20 17:01 | disposition home health service (06) | DRG 951 ==
LOC: M MS4PR 12-03 09:16 → M ICU 12-02 00:29 → M MS5PR 12-05 15:00 → M MS4PR 12-03 09:16 → M ED 18:04 → M ED INP 21:17
PROC: 0JD70ZZ Extraction of Back Subcutaneous Tissue and Fascia, Open Approach (ICD-10-PCS; principal; 2017-12-09 08:30)
DX: E11.10 Type 2 diabetes mellitus with ketoacidosis without coma (principal); M72.6 Necrotizing fasciitis; I50.22 Chronic systolic (congestive) heart failure; I95.9 Hypotension, unspecified; E83.39 Other disorders of phosphorus metabolism; E66.01 Morbid (severe) obesity due to excess calories; L03.312 Cellulitis of back [any part except buttock and flank]; Z68.33 Body mass index [BMI] 33.0-33.9, adult; E03.9 Hypothyroidism, unspecified; I25.10 Atherosclerotic heart disease of native coronary artery without angina pectoris; Z95.2 Presence of prosthetic heart valve; F17.210 Nicotine dependence, cigarettes, uncomplicated; E78.5 Hyperlipidemia, unspecified; F41.9 Anxiety disorder, unspecified; Z95.0 Presence of cardiac pacemaker; Z95.810 Presence of automatic (implantable) cardiac defibrillator; I73.9 Peripheral vascular disease, unspecified; Z79.82 Long term (current) use of aspirin; Z79.899 Other long term (current) drug therapy; I09.9 Rheumatic heart disease, unspecified; Z79.01 Long term (current) use of anticoagulants; Z88.8 Allergy status to other drugs, medicaments and biological substances; B95.61 Methicillin susceptible Staphylococcus aureus infection as the cause of diseases classified elsewhere; E11.40 Type 2 diabetes mellitus with diabetic neuropathy, unspecified

== ENCOUNTER → 2017-12-24 | Outpatient (REF) | payer MEDICAID ==
[2017-12-24 12:44] LABS: ALBUMIN 3.4 GM/DL (3.2-5.2); ALBUMIN/GLOBULIN RATIO 0.94 (1.00-1.93); ALKALINE PHOSPHATASE 189 U/L (45-117); ALT/SGPT 17 U/L (12-78); ANION GAP 6 MEQ/L (8-16); AST/SGOT 10 U/L (7-37); BILIRUBIN,TOTAL 0.5 MG/DL (0.2-1.0); BLOOD UREA NITROGEN 14 MG/DL (7-18); CALCIUM LEVEL 8.8 MG/DL (8.5-10.1); CARBON DIOXIDE LEVEL 32 MEQ/L (21-32); CHLORIDE LEVEL 102 MEQ/L (98-107); CHOLESTEROL LEVEL 140 MG/DL (<200); CHOLESTEROL RISK RATIO 3.589 (<5); CREATININE FOR GFR 1.11 MG/DL (0.55-1.30); GAMMA GLUTAMYLTRANSPEPTIDASE 74 U/L (5-55); GLOMERULAR FILTRATION RATE 54.3 (>51); HDL CHOLESTEROL 39 MG/DL (>40); LDL CHOLESTEROL 59.2 MG/DL (<100); NON-HDL-C 101 MG/DL; POTASSIUM SERUM 4.2 MEQ/L (3.5-5.1); SODIUM LEVEL 140 MEQ/L (136-145); TRIGLYCERIDES LEVEL 209 MG/DL (<150)
[2017-12-24 13:13] LABS: GLUCOSE, FASTING 555 MG/DL (70-100)
[2017-12-24 13:19] LABS: CREATININE, URINE 52.5 MG/DL; MALB URINE SIEMENS < 5.0 MG/L; MAU/CREAT RATIO 9.5 MCG/MG (0.0-30.0)
[2017-12-24 13:59] LABS: ESTIMATED AVERAGE GLUCOSE 315 MG/DL (60-110); HEMOGLOBIN A1c 12.6 %
== END ==
LOC: M SFHCPLAZ 09:49
DX: Z95.2 Presence of prosthetic heart valve (principal); E11.69 Type 2 diabetes mellitus with other specified complication; R74.8 Abnormal levels of other serum enzymes

== ENCOUNTER → 2018-01-11 | Outpatient (REF) | payer MEDICAID | LOC: M SFHCPLAZ 13:13 | DX: Z79.01 Long term (current) use of anticoagulants (principal) ==

== ENCOUNTER 2018-01-14 17:07 | Emergency (ER) | payer MEDICAID ==
[2018-01-14] MEDS: NS 1,000 ML IV ×2 (18:15→21:30)
[2018-01-14 18:38] LABS: BASO # 0.1 10^3/uL (0.0-0.2); BASO % 0.6 % (0.0-1.0); EOS % 0.5 % (0.0-3.0); HEMATOCRIT 48.9 % (36.0-47.0); HEMOGLOBIN 15.9 g/dl (12.0-15.5); IMMATURE GRANULOCYTE % 0.5 % (0-3.0); LYMPH % 11.4 % (24.0-44.0); MEAN CORPUSCULAR HEMOGLOBIN 27.5 pg (27.0-33.0); MEAN CORPUSCULAR HGB CONC 32.5 g/dl (32.0-36.5); MEAN CORPUSCULAR VOLUME 84.6 fl (80.0-96.0); MONO # 0.5 10^3/uL (0.0-0.8); MONO % 5.3 % (0.0-5.0); NEUTROPHILS % 81.7 % (36.0-66.0); PLATELET COUNT, AUTOMATED 216 10^3/uL (150-450); RED BLOOD COUNT 5.78 10^6/uL (4.00-5.40); RED CELL DISTRIBUTION WIDTH 15.6 % (11.5-14.5); WHITE BLOOD COUNT 8.6 10^3/uL (4.0-10.0)
[2018-01-14 18:49] LABS: VENOUS BASE EXCESS -0.9 (-2.0-2.0); VENOUS HCO3 23.6 MEQ/L (23.0-27.0); VENOUS O2 SATURATION 97.9 % (60.0-80.0); VENOUS PARTIAL PRESSURE CO2 38.8 mmHg (38.0-50.0); VENOUS PARTIAL PRESSURE O2 95.5 mmHg (30.0-50.0); VENOUS PH 7.402 UNITS (7.330-7.430); VENOUS STANDARD HCO3 23.8 MEQ/L; VENOUS TOTAL CO2 24.8 MEQ/L (24.0-28.0)
[2018-01-14 18:55] LABS: INR 4.61; PROTHROMBIN TIME 44.7 SECONDS (12.1-14.4)
[2018-01-14 19:08] LABS: ACETONE/KETONE 26.63 MG/DL (<2.81); ALBUMIN 3.4 GM/DL (3.2-5.2); ALBUMIN/GLOBULIN RATIO 0.85 (1.00-1.93); ALKALINE PHOSPHATASE 187 U/L (45-117); ALT/SGPT 14 U/L (12-78); ANION GAP 15 MEQ/L (8-16); AST/SGOT 15 U/L (7-37); BILIRUBIN,DIRECT 0.2 MG/DL (0.0-0.2); BILIRUBIN,TOTAL 0.7 MG/DL (0.2-1.0); BLOOD UREA NITROGEN 29 MG/DL (7-18); CARBON DIOXIDE LEVEL 23 MEQ/L (21-32); CHLORIDE LEVEL 92 MEQ/L (98-107); CK-MB VALUE MASS 1.3 NG/ML (<3.6); CPK CREATINE PHOSPHOKINASE 39 U/L (26-192); CREATININE FOR GFR 1.57 MG/DL (0.55-1.30); GLOMERULAR FILTRATION RATE 36.4 (>51); LIPASE 114 U/L (73-393); MB/CK RELATIVE INDEX 3.33 (< OR =4); POTASSIUM SERUM 4.5 MEQ/L (3.5-5.1); SODIUM LEVEL 130 MEQ/L (136-145); TOTAL PROTEIN 7.4 GM/DL (6.4-8.2); TROPONIN I < 0.02 NG/ML (< 0.10)
[2018-01-14 19:17] LABS: GLUCOSE, FASTING 609 MG/DL (70-100)
[2018-01-14 19:41] LABS: ESTIMATED AVERAGE GLUCOSE 298 MG/DL (60-110)
[2018-01-14] MEDS: HumuLIN R (REGULAR) INSULIN (NovoLIN R) **100U/ML** PER UNIT IV ×3 (20:19→22:59)
[2018-01-14 21:21] LABS: BEDSIDE GLUCOSE 488 MG/DL (70-105)
[2018-01-14 22:51] LABS: BEDSIDE GLUCOSE 300 MG/DL (70-105)
[2018-01-16 09:30] LABS: BEDSIDE GLUCOSE > 600 MG/DL (70-105)
== END 2018-01-14 23:19 | disposition home or self-care (01) ==
LOC: M ED 17:07
DX: E11.65 Type 2 diabetes mellitus with hyperglycemia (principal); R79.89 Other specified abnormal findings of blood chemistry; I11.9 Hypertensive heart disease without heart failure; Z95.5 Presence of coronary angioplasty implant and graft; F17.210 Nicotine dependence, cigarettes, uncomplicated; Z88.1 Allergy status to other antibiotic agents; Z88.8 Allergy status to other drugs, medicaments and biological substances; Z79.899 Other long term (current) drug therapy; Z79.4 Long term (current) use of insulin; Z79.82 Long term (current) use of aspirin; Z79.01 Long term (current) use of anticoagulants
CPT/HCPCS: 82550

== ENCOUNTER → 2018-01-14 | Outpatient (REF) | payer MEDICAID | LOC: M SFHCPLAZ 14:39 | DX: Z95.2 Presence of prosthetic heart valve (principal); Z79.01 Long term (current) use of anticoagulants ==

== ENCOUNTER 2018-01-21 09:15 | Outpatient (RCR) | payer OTHER, MEDICAID | END 2018-02-15 | LOC: M PT 09:15 | DX: Z51.89 Encounter for other specified aftercare (principal); R26.2 Difficulty in walking, not elsewhere classified | CPT/HCPCS: 97162 ==

== ENCOUNTER 2018-01-23 12:06 | Inpatient (IN) | payer OTHER ==
[~2018-01-23 12:06] MED LIST: VANCOMYCIN HCL 1,000 MG, VIAL MATE ADAPTER 1 EACH in D5W 250 ML IV
[2018-01-23] MEDS: MORPHINE 4 MG/ML 1ML VIAL/SYRINGE (J2270) IV (13:58)
[2018-01-23 14:07] LABS: HEMATOCRIT 44.7 % (36.0-47.0); MEAN CORPUSCULAR HEMOGLOBIN 27.1 pg (27.0-33.0); MEAN CORPUSCULAR HGB CONC 31.3 g/dl (32.0-36.5); MEAN CORPUSCULAR VOLUME 86.5 fl (80.0-96.0); PLATELET COUNT, AUTOMATED 239 10^3/uL (150-450); RED BLOOD COUNT 5.17 10^6/uL (4.00-5.40); RED CELL DISTRIBUTION WIDTH 15.9 % (11.5-14.5)
[2018-01-23 14:17] LABS: INR 2.55
[2018-01-23 14:23] LABS: LACTIC ACID SEPSIS PROTOCOL 2.3 MMOL/L (0.4-2.0)
[2018-01-23] MEDS: NS 1,000 ML IV ×2 (14:30→16:58)
[2018-01-23 14:35] LABS: ANION GAP 8 MEQ/L (8-16); BLOOD UREA NITROGEN 18 MG/DL (7-18); CALCIUM LEVEL 8.8 MG/DL (8.5-10.1); CARBON DIOXIDE LEVEL 29 MEQ/L (21-32); CHLORIDE LEVEL 100 MEQ/L (98-107); CREATININE FOR GFR 1.14 MG/DL (0.55-1.30); GLOMERULAR FILTRATION RATE 52.7 (>51); GLUCOSE, FASTING 221 MG/DL (70-100); POTASSIUM SERUM 4.6 MEQ/L (3.5-5.1); SODIUM LEVEL 137 MEQ/L (136-145)
[2018-01-23] MEDS ORDERED: GLUCAGON FOR INJ 1 MG VIAL (J1610) SC (16:15)
[2018-01-23] MEDS ORDERED: GLUCOSE 4 GM CHEW TABLET PO (16:15)
[2018-01-23] MEDS ORDERED: DEXTROSE 50% 50 ML SYRINGE IV (16:15)
[2018-01-23] MEDS ORDERED: PERCOCET 5MG/325MG TAB PO (16:15)
[2018-01-23] MEDS: PHYTONADIONE 5 MG TAB PO (16:57)
[2018-01-23] MEDS: VANCOMYCIN HCL 1,000 MG, VIAL MATE ADAPTER 1 EACH in D5W 250 ML IV ×3 (17:06→23:53)
[2018-01-23] MEDS: HumaLOG INSULIN (NovoLOG) PER UNIT SC (17:30)
[2018-01-23 18:50] LABS: BEDSIDE GLUCOSE 274 MG/DL (70-105)
[2018-01-23] MEDS: FUROSEMIDE 80 MG TAB PO (19:00)
[2018-01-23 19:09] LABS: LACTIC ACID SEPSIS PROTOCOL 1.3 MMOL/L (0.4-2.0)
[2018-01-23 21:28] LABS: BEDSIDE GLUCOSE 288 MG/DL (70-105)
[2018-01-23] MEDS: ENTRESTO 24-26MG TABLET (SACUBITRIL/VALSARTAN) PO (21:43)
[2018-01-23] MEDS: ATORVASTATIN 20 MG TAB PO (21:43)
[2018-01-23] MEDS: LORazepam 1 MG TAB PO (21:43)
[2018-01-23] MEDS: FAMOTIDINE 20 MG TAB PO (21:44)
[2018-01-23] MEDS: LEVEMIR (INSULIN DETEMIR) 1 UNITS/0.01ML SC (21:44)
[2018-01-23] MEDS: PREGABALIN 75 MG CAP(LYRICA) PO (21:44)
[2018-01-23] MEDS: CYCLOBENZAPRINE 10 MG TAB PO (21:44)
[2018-01-23] MEDS: CARVedilol 6.25 MG TAB PO (21:44)
[2018-01-24] MEDS: LEVOTHYROXINE 137MCG TABLET (0.137MG) PO (06:06)
[2018-01-24 06:58] LABS: HEMATOCRIT 38.7 % (36.0-47.0); HEMOGLOBIN 12.1 g/dl (12.0-15.5); MEAN CORPUSCULAR HEMOGLOBIN 27.2 pg (27.0-33.0); MEAN CORPUSCULAR HGB CONC 31.3 g/dl (32.0-36.5); PLATELET COUNT, AUTOMATED 178 10^3/uL (150-450); RED BLOOD COUNT 4.45 10^6/uL (4.00-5.40); RED CELL DISTRIBUTION WIDTH 15.6 % (11.5-14.5); WHITE BLOOD COUNT 5.9 10^3/uL (4.0-10.0)
[2018-01-24 07:11] LABS: INR 1.47; PROTHROMBIN TIME 18.1 SECONDS (12.1-14.4)
[2018-01-24 07:28] LABS: ANION GAP 6 MEQ/L (8-16); BLOOD UREA NITROGEN 15 MG/DL (7-18); CALCIUM LEVEL 8.3 MG/DL (8.5-10.1); CARBON DIOXIDE LEVEL 31 MEQ/L (21-32); CHLORIDE LEVEL 102 MEQ/L (98-107); CREATININE FOR GFR 0.91 MG/DL (0.55-1.30); GLOMERULAR FILTRATION RATE > 60.0 (>51); GLUCOSE, FASTING 283 MG/DL (70-100); POTASSIUM SERUM 3.4 MEQ/L (3.5-5.1); SODIUM LEVEL 139 MEQ/L (136-145)
[2018-01-24] MEDS: LORazepam 1 MG TAB PO ×3 (08:16→21:01)
[2018-01-24] MEDS: LEVEMIR (INSULIN DETEMIR) 1 UNITS/0.01ML SC ×2 (08:16→21:00)
[2018-01-24] MEDS: ENTRESTO 24-26MG TABLET (SACUBITRIL/VALSARTAN) PO ×2 (08:16→21:01)
[2018-01-24] MEDS: HumaLOG INSULIN (NovoLOG) PER UNIT SC ×3 (08:16→18:03)
[2018-01-24] MEDS: CYCLOBENZAPRINE 10 MG TAB PO ×3 (08:17→21:01)
[2018-01-24] MEDS: PREGABALIN 75 MG CAP(LYRICA) PO ×3 (08:17→21:01)
[2018-01-24] MEDS: FAMOTIDINE 20 MG TAB PO ×2 (08:17→21:01)
[2018-01-24] MEDS: ASPIRIN 81 MG ENTERIC TAB PO (08:17)
[2018-01-24] MEDS: POTASSIUM CHLORIDE 10 MEQ SR TABLET PO (08:17)
[2018-01-24] MEDS: FUROSEMIDE 80 MG TAB PO ×2 (08:17→16:54)
[2018-01-24] MEDS: CARVedilol 6.25 MG TAB PO ×2 (08:19→21:01)
[2018-01-24] MEDS: NYSTATIN 100,000 UNITS/GM TOPICAL PWD 15 GM TOP ×2 (09:33→21:00)
[2018-01-24 11:27] LABS: BEDSIDE GLUCOSE 172 MG/DL (70-105)
[2018-01-24] MEDS: VANCOMYCIN HCL 1,000 MG, VIAL MATE ADAPTER 1 EACH in D5W 250 ML IV (12:22)
[2018-01-24] MEDS: WARFARIN SOD 4 MG TAB PO (16:54)
[2018-01-24 17:30] LABS: BEDSIDE GLUCOSE 85 MG/DL (70-105)
[2018-01-24 20:25] LABS: BEDSIDE GLUCOSE 131 MG/DL (70-105)
[2018-01-24] MEDS: ATORVASTATIN 20 MG TAB PO (21:01)
[2018-01-25] MEDS: VANCOMYCIN HCL 1,000 MG, VIAL MATE ADAPTER 1 EACH in D5W 250 ML IV ×2 (00:49→12:47)
[2018-01-25] MEDS: LEVOTHYROXINE 137MCG TABLET (0.137MG) PO (05:34)
[2018-01-25 06:10] LABS: HEMATOCRIT 40.8 % (36.0-47.0); MEAN CORPUSCULAR HEMOGLOBIN 27.3 pg (27.0-33.0); MEAN CORPUSCULAR HGB CONC 31.9 g/dl (32.0-36.5); MEAN CORPUSCULAR VOLUME 85.7 fl (80.0-96.0); PLATELET COUNT, AUTOMATED 175 10^3/uL (150-450); RED BLOOD COUNT 4.76 10^6/uL (4.00-5.40); RED CELL DISTRIBUTION WIDTH 15.3 % (11.5-14.5); WHITE BLOOD COUNT 5.3 10^3/uL (4.0-10.0)
[2018-01-25 06:21] LABS: ANION GAP 7 MEQ/L (8-16); BLOOD UREA NITROGEN 15 MG/DL (7-18); CALCIUM LEVEL 8.7 MG/DL (8.5-10.1); CARBON DIOXIDE LEVEL 32 MEQ/L (21-32); CHLORIDE LEVEL 105 MEQ/L (98-107); CREATININE FOR GFR 0.85 MG/DL (0.55-1.30); GLOMERULAR FILTRATION RATE > 60.0 (>51); GLUCOSE, FASTING 111 MG/DL (70-100); SODIUM LEVEL 144 MEQ/L (136-145)
[2018-01-25 06:22] LABS: INR 1.08; PROTHROMBIN TIME 14.1 SECONDS (12.1-14.4)
[2018-01-25] MEDS: POTASSIUM CHLORIDE 10 MEQ SR TABLET PO ×3 (06:50→12:46)
[2018-01-25 07:50] LABS: MAGNESIUM LEVEL 1.5 MG/DL (1.8-2.4)
[2018-01-25] MEDS: HumaLOG INSULIN (NovoLOG) PER UNIT SC ×3 (08:01→17:32)
[2018-01-25] MEDS: MAG SULF 1GM/100ML (MAG RUN) 1 GM in APPROPRIATE DILUENT 1 EA IV (08:15)
[2018-01-25] MEDS: ASPIRIN 81 MG ENTERIC TAB PO (08:20)
[2018-01-25] MEDS: CARVedilol 6.25 MG TAB PO (08:22)
[2018-01-25] MEDS: LEVEMIR (INSULIN DETEMIR) 1 UNITS/0.01ML SC (09:00)
[2018-01-25] MEDS: CYCLOBENZAPRINE 10 MG TAB PO ×3 (09:00→16:34)
[2018-01-25] MEDS: ENTRESTO 24-26MG TABLET (SACUBITRIL/VALSARTAN) PO ×2 (09:00→12:45)
[2018-01-25] MEDS: PREGABALIN 75 MG CAP(LYRICA) PO ×3 (09:00→16:34)
[2018-01-25] MEDS: FAMOTIDINE 20 MG TAB PO ×2 (09:00→12:45)
[2018-01-25] MEDS: NYSTATIN 100,000 UNITS/GM TOPICAL PWD 15 GM TOP (09:00)
[2018-01-25] MEDS: LORazepam 1 MG TAB PO ×2 (09:00→16:34)
[2018-01-25] MEDS: FUROSEMIDE 80 MG TAB PO ×3 (09:00→16:34)
[2018-01-25] MEDS ORDERED: LIDOCAINE 2% INJ 100 MG/5 ML SDV (FOR ANES.) As Ordered (10:01)
[2018-01-25] MEDS ORDERED: fentaNYL 250 MCG/5 ML INJECTION (J3010) As Ordered (10:01)
[2018-01-25] MEDS ORDERED: PHENYLephrine HCL 500 MCG/5 ML (100MCG/ML) SYRINGE (J2370) As Ordered (10:01)
[2018-01-25] MEDS ORDERED: PROPOFOL 200 MG/20 ML VIAL As Ordered (10:01)
[2018-01-25] MEDS ORDERED: ROCURONIUM BROMIDE 50 MG/5 ML VIAL As Ordered (10:01)
[2018-01-25] MEDS ORDERED: MIDAZOLAM INJ 2 MG/2 ML VIAL (J2250) As Ordered (10:01)
[2018-01-25] MEDS ORDERED: ONDANSETRON 4MG/2ML VIAL (J2405) As Ordered (10:01)
[2018-01-25] MEDS ORDERED: SUGAMMADEX SODIUM 500 MG/5 ML VIAL (BRIDION) As Ordered (10:16)
[2018-01-25] MEDS: BUPIVACAINE/EPIN 0.25% 30 ML VIAL As Ordered ×2 (10:30)
[2018-01-25 10:57] LABS: BEDSIDE GLUCOSE 210 MG/DL (70-105)
[2018-01-25] MEDS ORDERED: WARFARIN SOD 5 MG TAB PO ×2 (11:30→17:00)
[2018-01-25] MEDS: WARFARIN SOD 5 MG TAB PO (11:44)
[2018-01-25 16:42] LABS: BEDSIDE GLUCOSE 360 MG/DL (70-105)
[2018-01-26] MEDS ORDERED: WARFARIN SOD 3 MG TAB PO (17:00)
[2018-01-27 00:06] LABS: HEPARIN INDUCED PLATELET ABY 0.546 OD (0.000-0.400)
== END 2018-01-25 18:45 | disposition left against medical advice (07) | DRG 351 ==
LOC: M ED 12:06 → M MSPAV 01-24 13:28 → M ED INP 16:07
PROC: 0JB90ZZ Excision of Buttock Subcutaneous Tissue and Fascia, Open Approach (ICD-10-PCS; principal; 2018-01-25 09:15)
DX: M79.89 Other specified soft tissue disorders (principal); I11.0 Hypertensive heart disease with heart failure; I50.22 Chronic systolic (congestive) heart failure; E11.40 Type 2 diabetes mellitus with diabetic neuropathy, unspecified; E11.51 Type 2 diabetes mellitus with diabetic peripheral angiopathy without gangrene; E66.01 Morbid (severe) obesity due to excess calories; F41.9 Anxiety disorder, unspecified; E03.9 Hypothyroidism, unspecified; I25.5 Ischemic cardiomyopathy; I09.9 Rheumatic heart disease, unspecified; F17.210 Nicotine dependence, cigarettes, uncomplicated; I25.10 Atherosclerotic heart disease of native coronary artery without angina pectoris; Z95.810 Presence of automatic (implantable) cardiac defibrillator; Z95.2 Presence of prosthetic heart valve; Z95.5 Presence of coronary angioplasty implant and graft; Z90.710 Acquired absence of both cervix and uterus; Z79.82 Long term (current) use of aspirin; Z79.01 Long term (current) use of anticoagulants; Z79.899 Other long term (current) drug therapy; Z98.62 Peripheral vascular angioplasty status; Z88.1 Allergy status to other antibiotic agents; Z88.8 Allergy status to other drugs, medicaments and biological substances

== ENCOUNTER → 2018-01-28 | Outpatient (REF) | payer OTHER, MEDICAID ==
[2018-01-28 13:33] LABS: BASO % 0.3 % (0.0-1.0); EOS # 0.2 10^3/uL (0.0-0.50); EOS % 2.2 % (0.0-3.0); HEMATOCRIT 43.5 % (36.0-47.0); HEMOGLOBIN 13.7 g/dl (12.0-15.5); IMMATURE GRANULOCYTE % 0.5 % (0-3.0); LYMPH # 0.9 10^3/uL (1.5-4.5); MEAN CORPUSCULAR HEMOGLOBIN 27.2 pg (27.0-33.0); MEAN CORPUSCULAR HGB CONC 31.5 g/dl (32.0-36.5); MEAN CORPUSCULAR VOLUME 86.3 fl (80.0-96.0); MONO # 0.4 10^3/uL (0.0-0.8); MONO % 3.7 % (0.0-5.0); NEUTROPHILS # 7.9 10^3/uL (1.8-7.7); NEUTROPHILS % 84.3 % (36.0-66.0); PLATELET COUNT, AUTOMATED 212 10^3/uL (150-450); RED BLOOD COUNT 5.04 10^6/uL (4.00-5.40); RED CELL DISTRIBUTION WIDTH 15.6 % (11.5-14.5); WHITE BLOOD COUNT 9.4 10^3/uL (4.0-10.0)
[2018-01-28 14:54] LABS: ANION GAP 9 MEQ/L (8-16); BLOOD UREA NITROGEN 13 MG/DL (7-18); CALCIUM LEVEL 9.3 MG/DL (8.5-10.1); CARBON DIOXIDE LEVEL 29 MEQ/L (21-32); CHLORIDE LEVEL 100 MEQ/L (98-107); GLOMERULAR FILTRATION RATE > 60.0 (>51); MAGNESIUM LEVEL 1.8 MG/DL (1.8-2.4); POTASSIUM SERUM 4.1 MEQ/L (3.5-5.1); SODIUM LEVEL 138 MEQ/L (136-145)
[2018-01-28 14:58] LABS: GLUCOSE, FASTING 446 MG/DL (70-100)
== END ==
LOC: M SFHCPLAZ 11:13
DX: Z51.81 Encounter for therapeutic drug level monitoring (principal); M79.89 Other specified soft tissue disorders; K92.1 Melena; R19.7 Diarrhea, unspecified; E87.6 Hypokalemia; E83.42 Hypomagnesemia

== ENCOUNTER → 2018-02-22 | Outpatient (REF) | payer OTHER ==
[2018-02-22 13:18] LABS: INR 2.78; PROTHROMBIN TIME 29.9 SECONDS (12.1-14.4)
== END ==
LOC: M SFHCPLAZ 11:46
DX: Z51.81 Encounter for therapeutic drug level monitoring (principal); Z79.01 Long term (current) use of anticoagulants
CPT/HCPCS: 85610

== ENCOUNTER 2018-03-04 12:12 | Emergency (ER) | payer OTHER | END 2018-03-04 15:40 | disposition home or self-care (01) | LOC: M ED 12:12 | DX: L02.219 Cutaneous abscess of trunk, unspecified (principal); L03.319 Cellulitis of trunk, unspecified; J44.9 Chronic obstructive pulmonary disease, unspecified; I11.0 Hypertensive heart disease with heart failure; E11.9 Type 2 diabetes mellitus without complications; I50.9 Heart failure, unspecified; K21.9 Gastro-esophageal reflux disease without esophagitis; I25.10 Atherosclerotic heart disease of native coronary artery without angina pectoris; Z95.1 Presence of aortocoronary bypass graft; Z95.5 Presence of coronary angioplasty implant and graft; Z79.899 Other long term (current) drug therapy; Z79.82 Long term (current) use of aspirin; Z79.4 Long term (current) use of insulin; Z79.01 Long term (current) use of anticoagulants; Z88.1 Allergy status to other antibiotic agents; Z88.8 Allergy status to other drugs, medicaments and biological substances | CPT/HCPCS: 99283 ==

== ENCOUNTER 2018-03-09 09:48 | Inpatient (IN) | payer OTHER ==
[2018-03-09] MEDS: NS 1,000 ML IV (11:00)
[2018-03-09 11:08] LABS: BASO # 0.1 10^3/uL (0.0-0.2); BASO % 0.5 % (0.0-1.0); EOS # 0.1 10^3/uL (0.0-0.50); EOS % 0.7 % (0.0-3.0); HEMATOCRIT 39.4 % (36.0-47.0); HEMOGLOBIN 12.8 g/dl (12.0-15.5); IMMATURE GRANULOCYTE % 1.2 % (0-3.0); LYMPH # 1.1 10^3/uL (1.5-4.5); LYMPH % 11.5 % (24.0-44.0); MEAN CORPUSCULAR HEMOGLOBIN 27.3 pg (27.0-33.0); MEAN CORPUSCULAR HGB CONC 32.5 g/dl (32.0-36.5); MONO # 0.7 10^3/uL (0.0-0.8); MONO % 6.9 % (0.0-5.0); NEUTROPHILS # 7.5 10^3/uL (1.8-7.7); NEUTROPHILS % 79.2 % (36.0-66.0); PLATELET COUNT, AUTOMATED 329 10^3/uL (150-450); RED BLOOD COUNT 4.69 10^6/uL (4.00-5.40); RED CELL DISTRIBUTION WIDTH 16.6 % (11.5-14.5); WHITE BLOOD COUNT 9.4 10^3/uL (4.0-10.0)
[2018-03-09 11:21] LABS: PROTHROMBIN TIME 58.6 SECONDS (12.1-14.4)
[2018-03-09 11:27] LABS: INR 6.48
[2018-03-09 12:40] LABS: BLOOD UREA NITROGEN 10 MG/DL (7-18); GLUCOSE, FASTING 200 MG/DL (70-100)
[2018-03-09 12:41] LABS: ANION GAP 13 MEQ/L (8-16); CALCIUM LEVEL 8.5 MG/DL (8.5-10.1); CARBON DIOXIDE LEVEL 23 MEQ/L (21-32); CHLORIDE LEVEL 99 MEQ/L (98-107); CREATININE FOR GFR 1.13 MG/DL (0.55-1.30); GLOMERULAR FILTRATION RATE 53.2 (>51); POTASSIUM SERUM 4.7 MEQ/L (3.5-5.1); SODIUM LEVEL 135 MEQ/L (136-145)
[2018-03-09] MEDS ORDERED: ISOVUE-370 76% 100ML VIAL (Q9967) As Ordered (13:00)
[2018-03-09] MEDS: MORPHINE 4 MG/ML 1ML VIAL/SYRINGE (J2270) IV (14:29)
[2018-03-09] MEDS: CLINDAMYCIN 900 MG in APPROPRIATE DILUENT 1 EA IV (15:00)
[2018-03-09] MEDS: PIPERACILLIN/TAZOBACTAM SOD 3.375 GM in D5W MINI-BAG PLUS 50 ML IV (15:57)
[2018-03-09] MEDS: FUROSEMIDE 80 MG TAB PO (17:00)
[2018-03-09] MEDS ORDERED: GLUCOSE 4 GM CHEW TABLET PO (17:15)
[2018-03-09] MEDS ORDERED: GLUCAGON FOR INJ 1 MG VIAL (J1610) SC (17:15)
[2018-03-09] MEDS: HumaLOG INSULIN (NovoLOG) PER UNIT SC ×2 (17:30→21:00)
[2018-03-09 19:38] LABS: BEDSIDE GLUCOSE 122 MG/DL (70-105)
[2018-03-09 20:10] LABS: LACTIC ACID SEPSIS PROTOCOL 1.7 MMOL/L (0.4-2.0)
[2018-03-09] MEDS: VANCOMYCIN HCL 1,000 MG, VIAL MATE ADAPTER 1 EACH in D5W 250 ML IV (20:14)
[2018-03-09] MEDS: PHYTONADIONE 5 MG TAB PO (20:16)
[2018-03-09] MEDS: ACETAMINOPHEN TAB 650MG DOSE (2X325MG) PO (21:12)
[2018-03-09] MEDS: ATORVASTATIN 20 MG TAB PO (21:18)
[2018-03-09] MEDS: CARVedilol 6.25 MG TAB PO (21:18)
[2018-03-09] MEDS: FAMOTIDINE 20 MG TAB PO (21:19)
[2018-03-09] MEDS: PREGABALIN 75 MG CAP(LYRICA) PO (21:19)
[2018-03-09] MEDS ORDERED: FUROSEMIDE 20 MG TAB As Ordered ×2 (21:22→21:25)
[2018-03-09 21:48] LABS: BEDSIDE GLUCOSE 149 MG/DL (70-105)
[2018-03-09] MEDS: MEROPENEM INJ 1 GM in APPROPRIATE DILUENT 1 EA IV (22:17)
[2018-03-09] MEDS: CLINDAMYCIN 600 MG in APPROPRIATE DILUENT 1 EA IV (23:47)
[2018-03-10] MEDS: VANCOMYCIN HCL 1,000 MG, VIAL MATE ADAPTER 1 EACH in D5W 250 ML IV ×3 (00:42→23:49)
[2018-03-10 04:38] LABS: HEMATOCRIT 36.6 % (36.0-47.0); HEMOGLOBIN 11.6 g/dl (12.0-15.5); MEAN CORPUSCULAR HEMOGLOBIN 26.4 pg (27.0-33.0); MEAN CORPUSCULAR HGB CONC 31.7 g/dl (32.0-36.5); MEAN CORPUSCULAR VOLUME 83.4 fl (80.0-96.0); PLATELET COUNT, AUTOMATED 279 10^3/uL (150-450); RED BLOOD COUNT 4.39 10^6/uL (4.00-5.40); RED CELL DISTRIBUTION WIDTH 16.3 % (11.5-14.5); WHITE BLOOD COUNT 6.9 10^3/uL (4.0-10.0)
[2018-03-10 04:47] LABS: PROTHROMBIN TIME 56.2 SECONDS (12.1-14.4)
[2018-03-10] MEDS: LEVOTHYROXINE 137MCG TABLET (0.137MG) PO (04:55)
[2018-03-10] MEDS: MEROPENEM INJ 1 GM in APPROPRIATE DILUENT 1 EA IV ×3 (04:55→20:53)
[2018-03-10 05:05] LABS: ANION GAP 9 MEQ/L (8-16); BLOOD UREA NITROGEN 10 MG/DL (7-18); C REACTIVE PROTEIN QUANTITATIV 6.73 MG/DL (0.00-0.30); CALCIUM LEVEL 8.4 MG/DL (8.5-10.1); CARBON DIOXIDE LEVEL 26 MEQ/L (21-32); CHLORIDE LEVEL 101 MEQ/L (98-107); CREATININE FOR GFR 1.07 MG/DL (0.55-1.30); GLOMERULAR FILTRATION RATE 56.7 (>51); GLUCOSE, FASTING 246 MG/DL (70-100); POTASSIUM SERUM 3.6 MEQ/L (3.5-5.1); SODIUM LEVEL 136 MEQ/L (136-145)
[2018-03-10 05:10] LABS: INR 6.15
[2018-03-10] MEDS: CLINDAMYCIN 600 MG in APPROPRIATE DILUENT 1 EA IV ×3 (05:53→21:39)
[2018-03-10] MEDS: HumaLOG INSULIN (NovoLOG) PER UNIT SC ×4 (08:06→20:55)
[2018-03-10] MEDS: LEVEMIR (INSULIN DETEMIR) 1 UNITS/0.01ML SC (09:37)
[2018-03-10] MEDS: FAMOTIDINE 20 MG TAB PO ×2 (09:38→20:53)
[2018-03-10] MEDS: ACETAMINOPHEN TAB 650MG DOSE (2X325MG) PO (09:38)
[2018-03-10] MEDS: DULoxetine 30 MG CAP (CYMBALTA) PO (09:38)
[2018-03-10] MEDS: FUROSEMIDE 80 MG TAB PO ×2 (09:42→17:57)
[2018-03-10] MEDS: ASPIRIN 81 MG ENTERIC TAB PO (09:42)
[2018-03-10] MEDS: CARVedilol 6.25 MG TAB PO ×2 (09:42→20:53)
[2018-03-10] MEDS: PREGABALIN 75 MG CAP(LYRICA) PO ×3 (09:42→20:53)
[2018-03-10] MEDS: INFLUENZA QUADRIVALENT PF VACCINE 0.5ML SYRINGE (90686) IM (09:43)
[2018-03-10 12:09] LABS: BEDSIDE GLUCOSE 313 MG/DL (70-105)
[2018-03-10] MEDS: LORazepam 1 MG TAB PO (12:56)
[2018-03-10] MEDS: PERCOCET 5MG/325MG TAB PO ×2 (12:57→20:54)
[2018-03-10 17:01] LABS: BEDSIDE GLUCOSE 128 MG/DL (70-105)
[2018-03-10 20:45] LABS: BEDSIDE GLUCOSE 59 MG/DL (70-105)
[2018-03-10] MEDS: ATORVASTATIN 20 MG TAB PO (20:53)
[2018-03-10 21:33] LABS: BEDSIDE GLUCOSE 103 MG/DL (70-105)
[2018-03-11] MEDS ORDERED: SLF 3 ML SYR IV
[2018-03-11 00:37] LABS: VANCOMYCIN LEVEL TROUGH 18.1 UG/ML (10.0-20.0)
[2018-03-11] MEDS: PERCOCET 5MG/325MG TAB PO ×4 (03:01→22:03)
[2018-03-11 04:54] LABS: HEMATOCRIT 38.9 % (36.0-47.0); MEAN CORPUSCULAR HEMOGLOBIN 26.6 pg (27.0-33.0); MEAN CORPUSCULAR HGB CONC 30.8 g/dl (32.0-36.5); MEAN CORPUSCULAR VOLUME 86.3 fl (80.0-96.0); PLATELET COUNT, AUTOMATED 369 10^3/uL (150-450); RED BLOOD COUNT 4.51 10^6/uL (4.00-5.40); RED CELL DISTRIBUTION WIDTH 16.4 % (11.5-14.5); WHITE BLOOD COUNT 7.9 10^3/uL (4.0-10.0)
[2018-03-11 05:03] LABS: INR 2.02; PROTHROMBIN TIME 23.2 SECONDS (12.1-14.4)
[2018-03-11 05:06] LABS: ANION GAP 8 MEQ/L (8-16); BLOOD UREA NITROGEN 12 MG/DL (7-18); CALCIUM LEVEL 8.6 MG/DL (8.5-10.1); CARBON DIOXIDE LEVEL 27 MEQ/L (21-32); CHLORIDE LEVEL 105 MEQ/L (98-107); CREATININE FOR GFR 0.93 MG/DL (0.55-1.30); GLOMERULAR FILTRATION RATE > 60.0 (>51); GLUCOSE, FASTING 59 MG/DL (70-100); SODIUM LEVEL 140 MEQ/L (136-145)
[2018-03-11] MEDS: SLF 3 ML SYR IV ×3 (05:06→21:13)
[2018-03-11] MEDS: MEROPENEM INJ 1 GM in APPROPRIATE DILUENT 1 EA IV ×3 (05:06→21:13)
[2018-03-11] MEDS: LEVOTHYROXINE 137MCG TABLET (0.137MG) PO (05:38)
[2018-03-11] MEDS: CLINDAMYCIN 600 MG in APPROPRIATE DILUENT 1 EA IV ×3 (05:38→22:06)
[2018-03-11] MEDS: HumaLOG INSULIN (NovoLOG) PER UNIT SC ×4 (07:30→21:13)
[2018-03-11 08:15] LABS: BEDSIDE GLUCOSE 78 MG/DL (70-105)
[2018-03-11] MEDS: PREGABALIN 75 MG CAP(LYRICA) PO ×3 (08:16→20:36)
[2018-03-11] MEDS: FUROSEMIDE 80 MG TAB PO ×2 (08:16→16:09)
[2018-03-11] MEDS: ASPIRIN 81 MG ENTERIC TAB PO (08:16)
[2018-03-11] MEDS: CARVedilol 6.25 MG TAB PO ×2 (08:16→20:38)
[2018-03-11] MEDS: DULoxetine 30 MG CAP (CYMBALTA) PO (08:16)
[2018-03-11] MEDS: FAMOTIDINE 20 MG TAB PO ×2 (08:16→20:35)
[2018-03-11] MEDS ORDERED: LEVEMIR (INSULIN DETEMIR) 1 UNITS/0.01ML SC (08:45)
[2018-03-11] MEDS: DEXTROSE 50% 50 ML SYRINGE IV (09:03)
[2018-03-11] MEDS: LEVEMIR (INSULIN DETEMIR) 1 UNITS/0.01ML SC (09:03)
[2018-03-11 10:24] LABS: BEDSIDE GLUCOSE 181 MG/DL (70-105)
[2018-03-11 12:04] LABS: BEDSIDE GLUCOSE 140 MG/DL (70-105)
[2018-03-11] MEDS: VANCOMYCIN HCL 1,000 MG, VIAL MATE ADAPTER 1 EACH in D5W 250 ML IV (12:29)
[2018-03-11] MEDS: WARFARIN SOD 2 MG TAB PO (16:09)
[2018-03-11 16:47] LABS: BEDSIDE GLUCOSE 174 MG/DL (70-105)
[2018-03-11] MEDS: ATORVASTATIN 20 MG TAB PO (20:35)
[2018-03-11 20:40] LABS: BEDSIDE GLUCOSE 336 MG/DL (70-105)
[2018-03-12] MEDS: VANCOMYCIN HCL 1,000 MG, VIAL MATE ADAPTER 1 EACH in D5W 250 ML IV ×2 (00:33→12:57)
[2018-03-12] MEDS: PERCOCET 5MG/325MG TAB PO ×3 (04:07→18:27)
[2018-03-12] MEDS: LEVOTHYROXINE 137MCG TABLET (0.137MG) PO (05:32)
[2018-03-12] MEDS: SLF 3 ML SYR IV ×3 (05:32→22:00)
[2018-03-12] MEDS: MEROPENEM INJ 1 GM in APPROPRIATE DILUENT 1 EA IV ×3 (05:32→21:52)
[2018-03-12] MEDS: CLINDAMYCIN 600 MG in APPROPRIATE DILUENT 1 EA IV ×3 (06:57→22:43)
[2018-03-12 07:06] LABS: HEMATOCRIT 39.9 % (36.0-47.0); HEMOGLOBIN 12.5 g/dl (12.0-15.5); MEAN CORPUSCULAR HEMOGLOBIN 26.6 pg (27.0-33.0); MEAN CORPUSCULAR HGB CONC 31.3 g/dl (32.0-36.5); MEAN CORPUSCULAR VOLUME 84.9 fl (80.0-96.0); PLATELET COUNT, AUTOMATED 318 10^3/uL (150-450); RED CELL DISTRIBUTION WIDTH 16.3 % (11.5-14.5); WHITE BLOOD COUNT 6.5 10^3/uL (4.0-10.0)
[2018-03-12 07:13] LABS: INR 1.43; PROTHROMBIN TIME 17.7 SECONDS (12.1-14.4)
[2018-03-12 07:23] LABS: ANION GAP 7 MEQ/L (8-16); BLOOD UREA NITROGEN 14 MG/DL (7-18); C REACTIVE PROTEIN QUANTITATIV 4.02 MG/DL (0.00-0.30); CALCIUM LEVEL 8.6 MG/DL (8.5-10.1); CARBON DIOXIDE LEVEL 28 MEQ/L (21-32); CHLORIDE LEVEL 100 MEQ/L (98-107); CREATININE FOR GFR 1.04 MG/DL (0.55-1.30); GLOMERULAR FILTRATION RATE 58.6 (>51); GLUCOSE, FASTING 388 MG/DL (70-100); POTASSIUM SERUM 4.1 MEQ/L (3.5-5.1); SODIUM LEVEL 135 MEQ/L (136-145)
[2018-03-12 07:58] LABS: BEDSIDE GLUCOSE 339 MG/DL (70-105)
[2018-03-12] MEDS: HumaLOG INSULIN (NovoLOG) PER UNIT SC ×4 (08:08→21:00)
[2018-03-12] MEDS: LEVEMIR (INSULIN DETEMIR) 1 UNITS/0.01ML SC (10:19)
[2018-03-12] MEDS: ASPIRIN 81 MG ENTERIC TAB PO (10:20)
[2018-03-12] MEDS: DULoxetine 30 MG CAP (CYMBALTA) PO (10:20)
[2018-03-12] MEDS: CARVedilol 6.25 MG TAB PO ×2 (10:20→21:53)
[2018-03-12] MEDS: FUROSEMIDE 80 MG TAB PO ×2 (10:21→17:45)
[2018-03-12] MEDS: FAMOTIDINE 20 MG TAB PO ×2 (10:21→21:52)
[2018-03-12] MEDS: PREGABALIN 75 MG CAP(LYRICA) PO ×3 (10:30→21:53)
[2018-03-12] MEDS: LORazepam 1 MG TAB PO (12:03)
[2018-03-12] MEDS ORDERED: WARFARIN SOD 2 MG TAB PO (17:00)
[2018-03-12] MEDS: WARFARIN SOD 4 MG TAB PO (17:45)
[2018-03-12 20:49] LABS: BEDSIDE GLUCOSE 146 MG/DL (70-105)
[2018-03-12 21:28] LABS: BEDSIDE GLUCOSE 221 MG/DL (70-105)
[2018-03-12 21:28] LABS: BEDSIDE GLUCOSE 236 MG/DL (70-105)
[2018-03-12] MEDS: ATORVASTATIN 20 MG TAB PO (21:52)
[2018-03-12] MEDS: LACTOBACILLUS ACIDOPHILUS CAP (BACID) PO (22:47)
[2018-03-13] MEDS: PERCOCET 5MG/325MG TAB PO ×3 (02:12→21:16)
[2018-03-13] MEDS: SLF 3 ML SYR IV ×3 (05:37→21:17)
[2018-03-13] MEDS: LEVOTHYROXINE 137MCG TABLET (0.137MG) PO (05:37)
[2018-03-13] MEDS: CLINDAMYCIN 600 MG in APPROPRIATE DILUENT 1 EA IV ×3 (06:32→22:32)
[2018-03-13 07:03] LABS: HEMATOCRIT 40.8 % (36.0-47.0); HEMOGLOBIN 12.8 g/dl (12.0-15.5); MEAN CORPUSCULAR HEMOGLOBIN 26.8 pg (27.0-33.0); MEAN CORPUSCULAR HGB CONC 31.4 g/dl (32.0-36.5); MEAN CORPUSCULAR VOLUME 85.4 fl (80.0-96.0); PLATELET COUNT, AUTOMATED 315 10^3/uL (150-450); RED BLOOD COUNT 4.78 10^6/uL (4.00-5.40); RED CELL DISTRIBUTION WIDTH 16.3 % (11.5-14.5); WHITE BLOOD COUNT 5.2 10^3/uL (4.0-10.0)
[2018-03-13 07:17] LABS: PROTHROMBIN TIME 15.4 SECONDS (12.1-14.4)
[2018-03-13 07:42] LABS: ANION GAP 8 MEQ/L (8-16); BLOOD UREA NITROGEN 18 MG/DL (7-18); CALCIUM LEVEL 8.8 MG/DL (8.5-10.1); CARBON DIOXIDE LEVEL 27 MEQ/L (21-32); CHLORIDE LEVEL 101 MEQ/L (98-107); COMPLEMENT C3 173 MG/DL (90-180); GLOMERULAR FILTRATION RATE > 60.0 (>51); GLUCOSE, FASTING 369 MG/DL (70-100); IMMUNOGLOBULIN G 1140 MG/DL (681-1648); IMMUNOGLOBULIN M 141 MG/DL (40-230); POTASSIUM SERUM 4.1 MEQ/L (3.5-5.1); SODIUM LEVEL 136 MEQ/L (136-145)
[2018-03-13] MEDS: HumaLOG INSULIN (NovoLOG) PER UNIT SC ×4 (07:55→20:29)
[2018-03-13] MEDS: LORazepam 1 MG TAB PO (09:06)
[2018-03-13] MEDS: PREGABALIN 75 MG CAP(LYRICA) PO ×3 (09:06→20:28)
[2018-03-13] MEDS: FUROSEMIDE 80 MG TAB PO ×2 (09:12→16:55)
[2018-03-13] MEDS: LACTOBACILLUS ACIDOPHILUS CAP (BACID) PO ×3 (09:12→20:28)
[2018-03-13] MEDS: ASPIRIN 81 MG ENTERIC TAB PO (09:12)
[2018-03-13] MEDS: CARVedilol 6.25 MG TAB PO ×2 (09:13→20:31)
[2018-03-13] MEDS: DULoxetine 30 MG CAP (CYMBALTA) PO (09:13)
[2018-03-13] MEDS: FAMOTIDINE 20 MG TAB PO ×2 (09:13→20:28)
[2018-03-13] MEDS: LEVEMIR (INSULIN DETEMIR) 1 UNITS/0.01ML SC (09:15)
[2018-03-13 10:39] LABS: HIV 1&2 SCREEN CENTAUR NEGATIVE (NEGATIVE)
[2018-03-13 10:39] LABS: HEPATITIS C VIRUS ABY INDEX 0.2 INDEX (<0.8)
[2018-03-13 16:52] LABS: BEDSIDE GLUCOSE 323 MG/DL (70-105)
[2018-03-13] MEDS: WARFARIN SOD 4 MG TAB PO (16:55)
[2018-03-13 19:58] LABS: BEDSIDE GLUCOSE 333 MG/DL (70-105)
[2018-03-13] MEDS: ATORVASTATIN 20 MG TAB PO (20:28)
[2018-03-14 02:11] LABS: BEDSIDE GLUCOSE 302 MG/DL (70-105)
[2018-03-14] MEDS: SLF 3 ML SYR IV ×3 (06:00→22:00)
[2018-03-14] MEDS: LEVOTHYROXINE 137MCG TABLET (0.137MG) PO (06:20)
[2018-03-14] MEDS: CLINDAMYCIN 600 MG in APPROPRIATE DILUENT 1 EA IV ×2 (06:21→15:38)
[2018-03-14 06:59] LABS: HEMATOCRIT 39.4 % (36.0-47.0); HEMOGLOBIN 12.6 g/dl (12.0-15.5); MEAN CORPUSCULAR HEMOGLOBIN 27.4 pg (27.0-33.0); MEAN CORPUSCULAR VOLUME 85.7 fl (80.0-96.0); PLATELET COUNT, AUTOMATED 287 10^3/uL (150-450); RED CELL DISTRIBUTION WIDTH 16.1 % (11.5-14.5); WHITE BLOOD COUNT 5.4 10^3/uL (4.0-10.0)
[2018-03-14 07:10] LABS: INR 1.17
[2018-03-14 07:21] LABS: C REACTIVE PROTEIN QUANTITATIV 2.02 MG/DL (0.00-0.30)
[2018-03-14 07:49] LABS: ANION GAP 8 MEQ/L (8-16); BLOOD UREA NITROGEN 23 MG/DL (7-18); CALCIUM LEVEL 9.1 MG/DL (8.5-10.1); CARBON DIOXIDE LEVEL 27 MEQ/L (21-32); CHLORIDE LEVEL 100 MEQ/L (98-107); GLOMERULAR FILTRATION RATE > 60.0 (>51); GLUCOSE, FASTING 439 MG/DL (70-100); POTASSIUM SERUM 3.8 MEQ/L (3.5-5.1); SODIUM LEVEL 135 MEQ/L (136-145)
[2018-03-14] MEDS: HumaLOG INSULIN (NovoLOG) PER UNIT SC ×4 (08:30→21:11)
[2018-03-14] MEDS: LACTOBACILLUS ACIDOPHILUS CAP (BACID) PO ×3 (08:31→21:10)
[2018-03-14] MEDS: DULoxetine 30 MG CAP (CYMBALTA) PO (08:31)
[2018-03-14] MEDS: FUROSEMIDE 80 MG TAB PO ×2 (08:33→17:47)
[2018-03-14] MEDS: CARVedilol 6.25 MG TAB PO ×2 (08:33→21:10)
[2018-03-14] MEDS: FAMOTIDINE 20 MG TAB PO ×2 (08:33→21:10)
[2018-03-14] MEDS: PREGABALIN 75 MG CAP(LYRICA) PO ×3 (08:33→21:10)
[2018-03-14] MEDS: LEVEMIR (INSULIN DETEMIR) 1 UNITS/0.01ML SC (08:34)
[2018-03-14] MEDS: ASPIRIN 81 MG ENTERIC TAB PO (08:35)
[2018-03-14] MEDS: EUCERIN 120GM CREAM EXT (09:00)
[2018-03-14] MEDS: PERCOCET 5MG/325MG TAB PO ×2 (10:04→21:11)
[2018-03-14 11:40] LABS: BEDSIDE GLUCOSE 362 MG/DL (70-105)
[2018-03-14] MEDS: LORazepam 1 MG TAB PO (15:46)
[2018-03-14 16:58] LABS: BEDSIDE GLUCOSE 269 MG/DL (70-105)
[2018-03-14] MEDS ORDERED: WARFARIN SOD 3 MG TAB PO (17:00)
[2018-03-14] MEDS: WARFARIN SOD 5 MG TAB PO (17:48)
[2018-03-14] MEDS: PIPERACILLIN/TAZOBACTAM SOD 3.375 GM in D5W MINI-BAG PLUS 50 ML IV (17:49)
[2018-03-14 20:36] LABS: BEDSIDE GLUCOSE 253 MG/DL (70-105)
[2018-03-14] MEDS: ATORVASTATIN 20 MG TAB PO (21:10)
[2018-03-14] MEDS ORDERED: APIXABAN 2.5 MG TAB (ELIQUIS) PO (22:30)
[2018-03-15 00:06] LABS: COMPLEMENT TOTAL (CH50) > 60 U/mL (>41)
[2018-03-15] MEDS: PIPERACILLIN/TAZOBACTAM SOD 3.375 GM in D5W MINI-BAG PLUS 50 ML IV ×4 (00:07→18:32)
[2018-03-15] MEDS: FONDAPARINUX SODIUM 2.5 MG/0.5 ML SYR (J1652 PER 0.5MG) SQ ×2 (00:47→20:34)
[2018-03-15] MEDS: PERCOCET 5MG/325MG TAB PO ×3 (03:22→20:35)
[2018-03-15] MEDS: LORazepam 1 MG TAB PO ×2 (05:32→16:16)
[2018-03-15] MEDS: LEVOTHYROXINE 137MCG TABLET (0.137MG) PO (05:35)
[2018-03-15] MEDS: SLF 3 ML SYR IV ×3 (05:35→20:35)
[2018-03-15 07:20] LABS: HEMATOCRIT 39.4 % (36.0-47.0); HEMOGLOBIN 12.7 g/dl (12.0-15.5); MEAN CORPUSCULAR HEMOGLOBIN 27.4 pg (27.0-33.0); MEAN CORPUSCULAR HGB CONC 32.2 g/dl (32.0-36.5); MEAN CORPUSCULAR VOLUME 84.9 fl (80.0-96.0); PLATELET COUNT, AUTOMATED 307 10^3/uL (150-450); RED BLOOD COUNT 4.64 10^6/uL (4.00-5.40); RED CELL DISTRIBUTION WIDTH 16.1 % (11.5-14.5); WHITE BLOOD COUNT 5.3 10^3/uL (4.0-10.0)
[2018-03-15 07:32] LABS: INR 1.21; PROTHROMBIN TIME 15.4 SECONDS (12.1-14.4)
[2018-03-15 07:51] LABS: ANION GAP 10 MEQ/L (8-16); BLOOD UREA NITROGEN 27 MG/DL (7-18); CALCIUM LEVEL 9.1 MG/DL (8.5-10.1); CARBON DIOXIDE LEVEL 27 MEQ/L (21-32); CHLORIDE LEVEL 97 MEQ/L (98-107); CREATININE FOR GFR 0.97 MG/DL (0.55-1.30); GLOMERULAR FILTRATION RATE > 60.0 (>51); GLUCOSE, FASTING 380 MG/DL (70-100); POTASSIUM SERUM 3.7 MEQ/L (3.5-5.1); SODIUM LEVEL 134 MEQ/L (136-145)
[2018-03-15] MEDS: LEVEMIR (INSULIN DETEMIR) 1 UNITS/0.01ML SC (10:02)
[2018-03-15] MEDS: HumaLOG INSULIN (NovoLOG) PER UNIT SC ×4 (10:03→20:51)
[2018-03-15] MEDS: PREGABALIN 75 MG CAP(LYRICA) PO ×3 (10:04→20:33)
[2018-03-15] MEDS: FUROSEMIDE 80 MG TAB PO ×2 (10:04→16:16)
[2018-03-15] MEDS: FAMOTIDINE 20 MG TAB PO ×2 (10:04→20:33)
[2018-03-15] MEDS: DULoxetine 30 MG CAP (CYMBALTA) PO (10:04)
[2018-03-15] MEDS: LACTOBACILLUS ACIDOPHILUS CAP (BACID) PO ×3 (10:04→20:32)
[2018-03-15] MEDS: CARVedilol 6.25 MG TAB PO ×2 (10:04→20:33)
[2018-03-15] MEDS: EUCERIN 120GM CREAM EXT (10:04)
[2018-03-15] MEDS: ASPIRIN 81 MG ENTERIC TAB PO (10:05)
[2018-03-15 11:49] LABS: BEDSIDE GLUCOSE 480 MG/DL (70-105)
[2018-03-15 15:51] LABS: LAD CD11 NORMAL (NORMAL); LAD CD18 NORMAL (NORMAL)
[2018-03-15] MEDS: WARFARIN SOD 5 MG TAB PO (16:17)
[2018-03-15 16:34] LABS: BEDSIDE GLUCOSE 249 MG/DL (70-105)
[2018-03-15] MEDS: ATORVASTATIN 20 MG TAB PO (20:33)
[2018-03-15 20:46] LABS: BEDSIDE GLUCOSE 370 MG/DL (70-105)
[2018-03-16] MEDS: PIPERACILLIN/TAZOBACTAM SOD 3.375 GM in D5W MINI-BAG PLUS 50 ML IV ×4 (00:01→18:06)
[2018-03-16] MEDS: PERCOCET 5MG/325MG TAB PO ×3 (04:06→21:46)
[2018-03-16] MEDS: LORazepam 1 MG TAB PO ×2 (06:04→12:41)
[2018-03-16] MEDS: SLF 3 ML SYR IV ×3 (06:04→21:35)
[2018-03-16] MEDS: LEVOTHYROXINE 137MCG TABLET (0.137MG) PO (06:04)
[2018-03-16 06:34] LABS: HEMATOCRIT 37.9 % (36.0-47.0); HEMOGLOBIN 12.1 g/dl (12.0-15.5); MEAN CORPUSCULAR HGB CONC 31.9 g/dl (32.0-36.5); MEAN CORPUSCULAR VOLUME 84.6 fl (80.0-96.0); PLATELET COUNT, AUTOMATED 295 10^3/uL (150-450); RED BLOOD COUNT 4.48 10^6/uL (4.00-5.40); RED CELL DISTRIBUTION WIDTH 16.1 % (11.5-14.5)
[2018-03-16 06:52] LABS: INR 1.34; PROTHROMBIN TIME 16.8 SECONDS (12.1-14.4)
[2018-03-16 07:02] LABS: ANION GAP 9 MEQ/L (8-16); BLOOD UREA NITROGEN 37 MG/DL (7-18); CARBON DIOXIDE LEVEL 30 MEQ/L (21-32); CHLORIDE LEVEL 98 MEQ/L (98-107); CREATININE FOR GFR 1.15 MG/DL (0.55-1.30); GLOMERULAR FILTRATION RATE 52.2 (>51); GLUCOSE, FASTING 389 MG/DL (70-100); POTASSIUM SERUM 4.1 MEQ/L (3.5-5.1); SODIUM LEVEL 137 MEQ/L (136-145)
[2018-03-16] MEDS: HumaLOG INSULIN (NovoLOG) PER UNIT SC ×4 (08:01→21:35)
[2018-03-16] MEDS: LACTOBACILLUS ACIDOPHILUS CAP (BACID) PO ×3 (08:03→21:34)
[2018-03-16] MEDS: FAMOTIDINE 20 MG TAB PO ×2 (08:03→21:34)
[2018-03-16] MEDS: LEVEMIR (INSULIN DETEMIR) 1 UNITS/0.01ML SC (08:03)
[2018-03-16] MEDS: PREGABALIN 75 MG CAP(LYRICA) PO ×3 (08:07→21:34)
[2018-03-16] MEDS: FUROSEMIDE 80 MG TAB PO ×2 (08:07→16:53)
[2018-03-16] MEDS: CARVedilol 6.25 MG TAB PO ×2 (08:07→21:34)
[2018-03-16] MEDS: DULoxetine 30 MG CAP (CYMBALTA) PO (08:07)
[2018-03-16] MEDS: ASPIRIN 81 MG ENTERIC TAB PO (08:07)
[2018-03-16] MEDS: EUCERIN 120GM CREAM EXT (08:08)
[2018-03-16 08:23] LABS: IgG SERUM (part of Subclasses) 1080 mg/dL (700-1600); IgG Subclass 1 683 mg/dL (248-810); IgG Subclass 2 260 mg/dL (130-555); IgG Subclass 3 70 mg/dL (15-102); IgG Subclass 4 38 mg/dL (2-96)
[2018-03-16 11:45] LABS: BEDSIDE GLUCOSE 304 MG/DL (70-105)
[2018-03-16 16:43] LABS: BEDSIDE GLUCOSE 301 MG/DL (70-105)
[2018-03-16] MEDS ORDERED: WARFARIN SOD 5 MG TAB PO (17:00)
[2018-03-16 20:18] LABS: BEDSIDE GLUCOSE 380 MG/DL (70-105)
[2018-03-16] MEDS: ATORVASTATIN 20 MG TAB PO (21:34)
[2018-03-16] MEDS: FONDAPARINUX SODIUM 2.5 MG/0.5 ML SYR (J1652 PER 0.5MG) SQ (21:35)
[2018-03-17] MEDS: PIPERACILLIN/TAZOBACTAM SOD 3.375 GM in D5W MINI-BAG PLUS 50 ML IV ×4 (00:35→18:29)
[2018-03-17] MEDS: LEVOTHYROXINE 137MCG TABLET (0.137MG) PO (05:38)
[2018-03-17] MEDS: PERCOCET 5MG/325MG TAB PO ×3 (05:39→20:51)
[2018-03-17] MEDS: SLF 3 ML SYR IV ×3 (05:39→20:53)
[2018-03-17] MEDS: HumaLOG INSULIN (NovoLOG) PER UNIT SC ×5 (08:55→20:52)
[2018-03-17] MEDS: PREGABALIN 75 MG CAP(LYRICA) PO ×3 (08:57→20:52)
[2018-03-17] MEDS: CARVedilol 6.25 MG TAB PO ×2 (08:57→20:51)
[2018-03-17] MEDS: FAMOTIDINE 20 MG TAB PO ×2 (08:57→20:51)
[2018-03-17] MEDS: FUROSEMIDE 80 MG TAB PO ×2 (08:57→15:23)
[2018-03-17 08:58] LABS: BEDSIDE GLUCOSE 290 MG/DL (70-105)
[2018-03-17] MEDS: LACTOBACILLUS ACIDOPHILUS CAP (BACID) PO ×4 (09:00→20:51)
[2018-03-17 09:32] LABS: HEMATOCRIT 37.9 % (36.0-47.0); MEAN CORPUSCULAR HEMOGLOBIN 26.9 pg (27.0-33.0); MEAN CORPUSCULAR HGB CONC 31.7 g/dl (32.0-36.5); PLATELET COUNT, AUTOMATED 279 10^3/uL (150-450); RED BLOOD COUNT 4.46 10^6/uL (4.00-5.40); RED CELL DISTRIBUTION WIDTH 16.1 % (11.5-14.5); WHITE BLOOD COUNT 5.5 10^3/uL (4.0-10.0)
[2018-03-17 09:49] LABS: INR 1.22; PROTHROMBIN TIME 15.6 SECONDS (12.1-14.4)
[2018-03-17 10:07] LABS: ANION GAP 5 MEQ/L (8-16); BLOOD UREA NITROGEN 34 MG/DL (7-18); CALCIUM LEVEL 9.4 MG/DL (8.5-10.1); CARBON DIOXIDE LEVEL 33 MEQ/L (21-32); CHLORIDE LEVEL 100 MEQ/L (98-107); CREATININE FOR GFR 1.03 MG/DL (0.55-1.30); GLOMERULAR FILTRATION RATE 59.2 (>51); GLUCOSE, FASTING 269 MG/DL (70-100); POTASSIUM SERUM 4.5 MEQ/L (3.5-5.1); SODIUM LEVEL 138 MEQ/L (136-145)
[2018-03-17] MEDS: LORazepam 1 MG TAB PO ×2 (11:11→15:23)
[2018-03-17] MEDS ORDERED: LIDOCAINE 1% SDV INJ 30 ML VIAL As Ordered (11:45)
[2018-03-17] MEDS ORDERED: BUPIVACAINE HCL 0.25% 30 ML VIAL As Ordered (11:46)
[2018-03-17] MEDS ORDERED: MIDAZOLAM INJ 2 MG/2 ML VIAL (J2250) As Ordered (12:31)
[2018-03-17] MEDS ORDERED: LIDOCAINE 2% INJ 100 MG/5 ML SDV (FOR ANES.) As Ordered (12:31)
[2018-03-17] MEDS ORDERED: fentaNYL 100 MCG/2 ML INJECTION (J3010) As Ordered (12:31)
[2018-03-17] MEDS ORDERED: PROPOFOL 200 MG/20 ML VIAL As Ordered (12:31)
[2018-03-17 13:00] LABS: BEDSIDE GLUCOSE 232 MG/DL (70-105)
[2018-03-17] MEDS ORDERED: HumaLOG INSULIN (NovoLOG) PER UNIT As Ordered (13:01)
[2018-03-17] MEDS ORDERED: PERCOCET 5MG/325MG TAB As Ordered (13:19)
[2018-03-17] MEDS: LR 1,000 ML IV (13:30)
[2018-03-17] MEDS ORDERED: fentaNYL 100 MCG/2 ML INJECTION (J3010) IV (13:30)
[2018-03-17] MEDS ORDERED: PERCOCET 5MG/325MG TAB PO (13:30)
[2018-03-17] MEDS ORDERED: ONDANSETRON 4MG/2ML VIAL (J2405) IV (13:30)
[2018-03-17] MEDS ORDERED: HYDROMORPHONE HCL 0.5 MG/ 0.5 ML SYRINGE (J1170 PER 1) IV (13:30)
[2018-03-17] MEDS: ASPIRIN 81 MG ENTERIC TAB PO (15:23)
[2018-03-17] MEDS: DULoxetine 30 MG CAP (CYMBALTA) PO (15:23)
[2018-03-17] MEDS: LEVEMIR (INSULIN DETEMIR) 1 UNITS/0.01ML SC (15:24)
[2018-03-17] MEDS: EUCERIN 120GM CREAM EXT (15:25)
[2018-03-17 17:12] LABS: BEDSIDE GLUCOSE 332 MG/DL (70-105)
[2018-03-17] MEDS: APIXABAN 2.5 MG TAB (ELIQUIS) PO (20:51)
[2018-03-17] MEDS: ATORVASTATIN 20 MG TAB PO (20:52)
[2018-03-17] MEDS: FONDAPARINUX SODIUM 2.5 MG/0.5 ML SYR (J1652 PER 0.5MG) SQ (20:53)
[2018-03-18] MEDS: PIPERACILLIN/TAZOBACTAM SOD 3.375 GM in D5W MINI-BAG PLUS 50 ML IV ×4 (00:50→17:42)
[2018-03-18] MEDS: PERCOCET 5MG/325MG TAB PO ×3 (03:26→14:59)
[2018-03-18] MEDS: ACETAMINOPHEN TAB 650MG DOSE (2X325MG) PO (05:52)
[2018-03-18] MEDS: LORazepam 1 MG TAB PO ×3 (05:52→17:41)
[2018-03-18] MEDS: LEVOTHYROXINE 137MCG TABLET (0.137MG) PO (05:52)
[2018-03-18] MEDS: SLF 3 ML SYR IV ×3 (05:53→22:11)
[2018-03-18 06:03] LABS: BEDSIDE GLUCOSE 423 MG/DL (70-105)
[2018-03-18 08:20] LABS: HEMOGLOBIN 10.7 g/dl (12.0-15.5); MEAN CORPUSCULAR HEMOGLOBIN 27.2 pg (27.0-33.0); MEAN CORPUSCULAR HGB CONC 31.5 g/dl (32.0-36.5); MEAN CORPUSCULAR VOLUME 86.3 fl (80.0-96.0); PLATELET COUNT, AUTOMATED 278 10^3/uL (150-450); RED BLOOD COUNT 3.94 10^6/uL (4.00-5.40); RED CELL DISTRIBUTION WIDTH 15.9 % (11.5-14.5); WHITE BLOOD COUNT 10.8 10^3/uL (4.0-10.0)
[2018-03-18 08:33] LABS: INR 1.19; PROTHROMBIN TIME 15.3 SECONDS (12.1-14.4)
[2018-03-18 08:44] LABS: ANION GAP 7 MEQ/L (8-16); BLOOD UREA NITROGEN 28 MG/DL (7-18); CALCIUM LEVEL 8.9 MG/DL (8.5-10.1); CARBON DIOXIDE LEVEL 33 MEQ/L (21-32); CHLORIDE LEVEL 99 MEQ/L (98-107); CREATININE FOR GFR 1.11 MG/DL (0.55-1.30); GLOMERULAR FILTRATION RATE 54.3 (>51); GLUCOSE, FASTING 330 MG/DL (70-100); POTASSIUM SERUM 3.8 MEQ/L (3.5-5.1); SODIUM LEVEL 139 MEQ/L (136-145)
[2018-03-18] MEDS: FAMOTIDINE 20 MG TAB PO ×2 (09:41→22:09)
[2018-03-18] MEDS: FUROSEMIDE 80 MG TAB PO ×2 (09:41→17:42)
[2018-03-18] MEDS: LACTOBACILLUS ACIDOPHILUS CAP (BACID) PO ×3 (09:42→22:09)
[2018-03-18] MEDS: ASPIRIN 81 MG ENTERIC TAB PO (09:42)
[2018-03-18] MEDS: DULoxetine 30 MG CAP (CYMBALTA) PO (09:42)
[2018-03-18] MEDS: PREGABALIN 75 MG CAP(LYRICA) PO ×3 (09:43→22:10)
[2018-03-18] MEDS: CARVedilol 6.25 MG TAB PO ×2 (09:43→22:10)
[2018-03-18] MEDS: HumaLOG INSULIN (NovoLOG) PER UNIT SC ×4 (09:44→22:07)
[2018-03-18] MEDS: LEVEMIR (INSULIN DETEMIR) 1 UNITS/0.01ML SC (09:44)
[2018-03-18] MEDS: EUCERIN 120GM CREAM EXT (09:45)
[2018-03-18] MEDS: SILVER NITRATE APPLICATOR TOP (10:00)
[2018-03-18 12:22] LABS: BEDSIDE GLUCOSE 395 MG/DL (70-105)
[2018-03-18] MEDS: APIXABAN 2.5 MG TAB (ELIQUIS) PO (13:41)
[2018-03-18 15:07] LABS: HEMATOCRIT 30.2 % (36.0-47.0); HEMOGLOBIN 9.5 g/dl (12.0-15.5); MEAN CORPUSCULAR HEMOGLOBIN 27.1 pg (27.0-33.0); MEAN CORPUSCULAR HGB CONC 31.5 g/dl (32.0-36.5); MEAN CORPUSCULAR VOLUME 86.3 fl (80.0-96.0); PLATELET COUNT, AUTOMATED 319 10^3/uL (150-450); RED CELL DISTRIBUTION WIDTH 15.9 % (11.5-14.5); WHITE BLOOD COUNT 9.2 10^3/uL (4.0-10.0)
[2018-03-18] MEDS ORDERED: WARFARIN SOD 5 MG TAB PO (17:00)
[2018-03-18 17:51] LABS: BEDSIDE GLUCOSE 368 MG/DL (70-105)
[2018-03-18] MEDS: DILUENT IV (19:25)
[2018-03-18] MEDS: PROTHROMBIN COMPLEX CONCEN IV (19:25)
[2018-03-18 21:16] LABS: BEDSIDE GLUCOSE 353 MG/DL (70-105)
[2018-03-18] MEDS: FONDAPARINUX SODIUM 2.5 MG/0.5 ML SYR (J1652 PER 0.5MG) SQ (22:07)
[2018-03-18] MEDS: ATORVASTATIN 20 MG TAB PO (22:10)
[2018-03-18 22:54] LABS: TYPE AND SCREEN 1
[2018-03-19 01:00] LABS: IMMEDIATE SPIN CROSSMATCH 1 1
[2018-03-19 04:34] LABS: HEMATOCRIT 27.7 % (36.0-47.0); HEMOGLOBIN 8.8 g/dl (12.0-15.5)
[2018-03-19] MEDS: SLF 3 ML SYR IV ×3 (05:22→21:05)
[2018-03-19] MEDS: PIPERACILLIN/TAZOBACTAM SOD 3.375 GM in D5W MINI-BAG PLUS 50 ML IV ×3 (05:32→12:10)
[2018-03-19] MEDS: LEVOTHYROXINE 137MCG TABLET (0.137MG) PO (05:32)
[2018-03-19] MEDS: PERCOCET 5MG/325MG TAB PO ×3 (06:56→21:04)
[2018-03-19 08:36] LABS: BEDSIDE GLUCOSE 454 MG/DL (70-105)
[2018-03-19] MEDS: PREGABALIN 75 MG CAP(LYRICA) PO ×3 (09:27→21:03)
[2018-03-19] MEDS: HumaLOG INSULIN (NovoLOG) PER UNIT SC ×4 (09:27→21:03)
[2018-03-19] MEDS: LORazepam 1 MG TAB PO ×2 (09:27→18:29)
[2018-03-19] MEDS: LACTOBACILLUS ACIDOPHILUS CAP (BACID) PO ×3 (09:55→21:03)
[2018-03-19] MEDS: LEVEMIR (INSULIN DETEMIR) 1 UNITS/0.01ML SC (09:55)
[2018-03-19] MEDS: FAMOTIDINE 20 MG TAB PO ×2 (09:56→21:04)
[2018-03-19] MEDS: DULoxetine 30 MG CAP (CYMBALTA) PO (09:56)
[2018-03-19] MEDS: CARVedilol 6.25 MG TAB PO ×2 (09:56→21:04)
[2018-03-19 09:57] LABS: HEMATOCRIT 27.9 % (36.0-47.0); HEMOGLOBIN 8.8 g/dl (12.0-15.5); MEAN CORPUSCULAR HEMOGLOBIN 27.6 pg (27.0-33.0); MEAN CORPUSCULAR HGB CONC 31.5 g/dl (32.0-36.5); MEAN CORPUSCULAR VOLUME 87.5 fl (80.0-96.0); PLATELET COUNT, AUTOMATED 242 10^3/uL (150-450); RED BLOOD COUNT 3.19 10^6/uL (4.00-5.40); RED CELL DISTRIBUTION WIDTH 15.8 % (11.5-14.5); WHITE BLOOD COUNT 8.9 10^3/uL (4.0-10.0)
[2018-03-19] MEDS: FUROSEMIDE 80 MG TAB PO ×2 (09:57→16:35)
[2018-03-19] MEDS: EUCERIN 120GM CREAM EXT (09:57)
[2018-03-19 10:07] LABS: INR 0.95; PROTHROMBIN TIME 12.7 SECONDS (12.1-14.4)
[2018-03-19 11:20] LABS: ANION GAP 7 MEQ/L (8-16); BLOOD UREA NITROGEN 23 MG/DL (7-18); CALCIUM LEVEL 8.4 MG/DL (8.5-10.1); CARBON DIOXIDE LEVEL 32 MEQ/L (21-32); CHLORIDE LEVEL 100 MEQ/L (98-107); CREATININE FOR GFR 1.06 MG/DL (0.55-1.30); GLOMERULAR FILTRATION RATE 57.3 (>51); GLUCOSE, FASTING 434 MG/DL (70-100); POTASSIUM SERUM 4.4 MEQ/L (3.5-5.1); SODIUM LEVEL 139 MEQ/L (136-145)
[2018-03-19 12:09] LABS: BEDSIDE GLUCOSE 432 MG/DL (70-105)
[2018-03-19 19:19] LABS: HEMATOCRIT 26.3 % (36.0-47.0); HEMOGLOBIN 8.4 g/dl (12.0-15.5)
[2018-03-19] MEDS: FONDAPARINUX SODIUM 2.5 MG/0.5 ML SYR (J1652 PER 0.5MG) SQ (21:02)
[2018-03-19] MEDS: ATORVASTATIN 20 MG TAB PO (21:03)
[2018-03-19] MEDS: AUGMENTIN 875 MG TAB PO (21:03)
[2018-03-19 21:14] LABS: BEDSIDE GLUCOSE 427 MG/DL (70-105)
[2018-03-20 03:08] LABS: BEDSIDE GLUCOSE 323 MG/DL (70-105)
[2018-03-20] MEDS: PERCOCET 5MG/325MG TAB PO ×3 (04:57→21:59)
[2018-03-20] MEDS: LEVOTHYROXINE 137MCG TABLET (0.137MG) PO (05:00)
[2018-03-20] MEDS: SLF 3 ML SYR IV ×3 (05:11→22:00)
[2018-03-20 07:17] LABS: HEMATOCRIT 25.9 % (36.0-47.0); HEMOGLOBIN 8.2 g/dl (12.0-15.5); MEAN CORPUSCULAR HEMOGLOBIN 27.4 pg (27.0-33.0); MEAN CORPUSCULAR HGB CONC 31.7 g/dl (32.0-36.5); MEAN CORPUSCULAR VOLUME 86.6 fl (80.0-96.0); PLATELET COUNT, AUTOMATED 215 10^3/uL (150-450); RED BLOOD COUNT 2.99 10^6/uL (4.00-5.40); WHITE BLOOD COUNT 7.1 10^3/uL (4.0-10.0)
[2018-03-20 07:29] LABS: INR 0.91; PROTHROMBIN TIME 12.4 SECONDS (12.1-14.4)
[2018-03-20 07:40] LABS: ANION GAP 7 MEQ/L (8-16); BLOOD UREA NITROGEN 23 MG/DL (7-18); CALCIUM LEVEL 8.6 MG/DL (8.5-10.1); CARBON DIOXIDE LEVEL 30 MEQ/L (21-32); CHLORIDE LEVEL 102 MEQ/L (98-107); GLOMERULAR FILTRATION RATE > 60.0 (>51); GLUCOSE, FASTING 393 MG/DL (70-100); POTASSIUM SERUM 3.7 MEQ/L (3.5-5.1); SODIUM LEVEL 139 MEQ/L (136-145)
[2018-03-20] MEDS: HumaLOG INSULIN (NovoLOG) PER UNIT SC ×4 (07:54→22:01)
[2018-03-20] MEDS: DULoxetine 30 MG CAP (CYMBALTA) PO (08:17)
[2018-03-20] MEDS: FAMOTIDINE 20 MG TAB PO ×2 (08:17→21:59)
[2018-03-20] MEDS: CARVedilol 6.25 MG TAB PO ×2 (08:17→22:00)
[2018-03-20] MEDS: AUGMENTIN 875 MG TAB PO ×2 (08:17→22:00)
[2018-03-20] MEDS: LEVEMIR (INSULIN DETEMIR) 1 UNITS/0.01ML SC (08:18)
[2018-03-20] MEDS: LACTOBACILLUS ACIDOPHILUS CAP (BACID) PO ×3 (08:18→22:00)
[2018-03-20] MEDS: FUROSEMIDE 80 MG TAB PO ×2 (08:18→17:00)
[2018-03-20] MEDS: PREGABALIN 75 MG CAP(LYRICA) PO ×3 (08:28→22:00)
[2018-03-20] MEDS: EUCERIN 120GM CREAM EXT (09:00)
[2018-03-20 11:48] LABS: BEDSIDE GLUCOSE 268 MG/DL (70-105)
[2018-03-20] MEDS: LORazepam 1 MG TAB PO (14:13)
[2018-03-20 17:23] LABS: BEDSIDE GLUCOSE 318 MG/DL (70-105)
[2018-03-20 20:19] LABS: BEDSIDE GLUCOSE 365 MG/DL (70-105)
[2018-03-20] MEDS: ATORVASTATIN 20 MG TAB PO (21:59)
[2018-03-20] MEDS: FONDAPARINUX SODIUM 2.5 MG/0.5 ML SYR (J1652 PER 0.5MG) SQ (22:01)
[2018-03-21] MEDS: PERCOCET 5MG/325MG TAB PO ×4 (04:06→22:13)
[2018-03-21] MEDS: SLF 3 ML SYR IV ×3 (06:00→22:15)
[2018-03-21] MEDS: LEVOTHYROXINE 137MCG TABLET (0.137MG) PO (06:12)
[2018-03-21 07:01] LABS: HEMATOCRIT 24.8 % (36.0-47.0); HEMOGLOBIN 7.8 g/dl (12.0-15.5); MEAN CORPUSCULAR HEMOGLOBIN 27.9 pg (27.0-33.0); MEAN CORPUSCULAR HGB CONC 31.5 g/dl (32.0-36.5); MEAN CORPUSCULAR VOLUME 88.6 fl (80.0-96.0); PLATELET COUNT, AUTOMATED 188 10^3/uL (150-450); RED CELL DISTRIBUTION WIDTH 16.1 % (11.5-14.5); WHITE BLOOD COUNT 5.8 10^3/uL (4.0-10.0)
[2018-03-21 07:12] LABS: INR 0.97
[2018-03-21 07:20] LABS: ANION GAP 8 MEQ/L (8-16); BLOOD UREA NITROGEN 19 MG/DL (7-18); CALCIUM LEVEL 8.5 MG/DL (8.5-10.1); CARBON DIOXIDE LEVEL 31 MEQ/L (21-32); CHLORIDE LEVEL 99 MEQ/L (98-107); GLOMERULAR FILTRATION RATE > 60.0 (>51); GLUCOSE, FASTING 337 MG/DL (70-100); POTASSIUM SERUM 3.7 MEQ/L (3.5-5.1); SODIUM LEVEL 138 MEQ/L (136-145)
[2018-03-21] MEDS: LEVEMIR (INSULIN DETEMIR) 1 UNITS/0.01ML SC (10:13)
[2018-03-21] MEDS: HumaLOG INSULIN (NovoLOG) PER UNIT SC ×4 (10:14→22:12)
[2018-03-21] MEDS: LACTOBACILLUS ACIDOPHILUS CAP (BACID) PO ×3 (10:15→21:47)
[2018-03-21] MEDS: CARVedilol 6.25 MG TAB PO ×2 (10:16→21:49)
[2018-03-21] MEDS: AUGMENTIN 875 MG TAB PO ×2 (10:16→21:48)
[2018-03-21] MEDS: FAMOTIDINE 20 MG TAB PO ×2 (10:17→21:49)
[2018-03-21] MEDS: DULoxetine 30 MG CAP (CYMBALTA) PO (10:17)
[2018-03-21] MEDS: FUROSEMIDE 80 MG TAB PO ×2 (10:17→16:11)
[2018-03-21] MEDS: PREGABALIN 75 MG CAP(LYRICA) PO ×3 (10:23→21:49)
[2018-03-21] MEDS: EUCERIN 120GM CREAM EXT (10:25)
[2018-03-21 11:35] LABS: BEDSIDE GLUCOSE 456 MG/DL (70-105)
[2018-03-21 17:09] LABS: BEDSIDE GLUCOSE 310 MG/DL (70-105)
[2018-03-21] MEDS: ATORVASTATIN 20 MG TAB PO (21:47)
[2018-03-21] MEDS: FONDAPARINUX SODIUM 2.5 MG/0.5 ML SYR (J1652 PER 0.5MG) SQ (21:50)
[2018-03-21 21:59] LABS: BEDSIDE GLUCOSE 323 MG/DL (70-105)
[2018-03-22] MEDS: WARFARIN SOD 3 MG TAB PO ×2 (00:04→18:00)
[2018-03-22 02:24] LABS: IMMEDIATE SPIN CROSSMATCH 1 2
[2018-03-22] MEDS: PERCOCET 5MG/325MG TAB PO ×3 (05:14→18:01)
[2018-03-22] MEDS: LEVOTHYROXINE 137MCG TABLET (0.137MG) PO (06:32)
[2018-03-22] MEDS: SLF 3 ML SYR IV ×3 (06:33→20:26)
[2018-03-22 07:26] LABS: HEMATOCRIT 30.6 % (36.0-47.0); MEAN CORPUSCULAR HEMOGLOBIN 27.8 pg (27.0-33.0); MEAN CORPUSCULAR VOLUME 86.9 fl (80.0-96.0); PLATELET COUNT, AUTOMATED 217 10^3/uL (150-450); RED BLOOD COUNT 3.52 10^6/uL (4.00-5.40); RED CELL DISTRIBUTION WIDTH 16.3 % (11.5-14.5); WHITE BLOOD COUNT 6.4 10^3/uL (4.0-10.0)
[2018-03-22 07:34] LABS: HEMOGLOBIN 9.8 g/dl (12.0-15.5)
[2018-03-22 07:46] LABS: INR 0.99; PROTHROMBIN TIME 13.2 SECONDS (12.1-14.4)
[2018-03-22 07:47] LABS: ANION GAP 8 MEQ/L (8-16); BLOOD UREA NITROGEN 17 MG/DL (7-18); CALCIUM LEVEL 9.2 MG/DL (8.5-10.1); CARBON DIOXIDE LEVEL 30 MEQ/L (21-32); CHLORIDE LEVEL 99 MEQ/L (98-107); CREATININE FOR GFR 0.98 MG/DL (0.55-1.30); GLOMERULAR FILTRATION RATE > 60.0 (>51); GLUCOSE, FASTING 344 MG/DL (70-100); POTASSIUM SERUM 3.5 MEQ/L (3.5-5.1); SODIUM LEVEL 137 MEQ/L (136-145)
[2018-03-22] MEDS: HumaLOG INSULIN (NovoLOG) PER UNIT SC ×4 (08:29→22:51)
[2018-03-22] MEDS: PREGABALIN 75 MG CAP(LYRICA) PO ×3 (08:30→20:25)
[2018-03-22] MEDS: AUGMENTIN 875 MG TAB PO ×2 (08:30→20:24)
[2018-03-22] MEDS: LEVEMIR (INSULIN DETEMIR) 1 UNITS/0.01ML SC (08:30)
[2018-03-22] MEDS: CARVedilol 6.25 MG TAB PO ×2 (08:32→20:26)
[2018-03-22] MEDS: DULoxetine 30 MG CAP (CYMBALTA) PO (08:33)
[2018-03-22] MEDS: LACTOBACILLUS ACIDOPHILUS CAP (BACID) PO ×3 (08:33→20:25)
[2018-03-22] MEDS: FUROSEMIDE 80 MG TAB PO ×2 (08:33→18:00)
[2018-03-22] MEDS: FAMOTIDINE 20 MG TAB PO ×2 (08:33→20:25)
[2018-03-22] MEDS: EUCERIN 120GM CREAM EXT (08:34)
[2018-03-22 15:41] LABS: BEDSIDE GLUCOSE 403 MG/DL (70-105)
[2018-03-22 16:40] LABS: BEDSIDE GLUCOSE 294 MG/DL (70-105)
[2018-03-22] MEDS: FONDAPARINUX SODIUM 2.5 MG/0.5 ML SYR (J1652 PER 0.5MG) SQ (20:24)
[2018-03-22] MEDS: ATORVASTATIN 20 MG TAB PO (20:25)
[2018-03-22 22:05] LABS: BEDSIDE GLUCOSE 337 MG/DL (70-105)
[2018-03-23] MEDS: PERCOCET 5MG/325MG TAB PO ×3 (00:06→13:47)
[2018-03-23] MEDS: SLF 3 ML SYR IV (05:51)
[2018-03-23] MEDS: LEVOTHYROXINE 137MCG TABLET (0.137MG) PO (05:51)
[2018-03-23 07:10] LABS: HEMATOCRIT 32.4 % (36.0-47.0); HEMOGLOBIN 10.1 g/dl (12.0-15.5); MEAN CORPUSCULAR HEMOGLOBIN 27.6 pg (27.0-33.0); MEAN CORPUSCULAR HGB CONC 31.2 g/dl (32.0-36.5); MEAN CORPUSCULAR VOLUME 88.5 fl (80.0-96.0); PLATELET COUNT, AUTOMATED 205 10^3/uL (150-450); RED BLOOD COUNT 3.66 10^6/uL (4.00-5.40); RED CELL DISTRIBUTION WIDTH 16.8 % (11.5-14.5); WHITE BLOOD COUNT 4.7 10^3/uL (4.0-10.0)
[2018-03-23 07:20] LABS: INR 0.97
[2018-03-23 07:56] LABS: ANION GAP 7 MEQ/L (8-16); BLOOD UREA NITROGEN 16 MG/DL (7-18); CALCIUM LEVEL 8.7 MG/DL (8.5-10.1); CARBON DIOXIDE LEVEL 31 MEQ/L (21-32); CHLORIDE LEVEL 98 MEQ/L (98-107); CREATININE FOR GFR 1.03 MG/DL (0.55-1.30); GLOMERULAR FILTRATION RATE 59.2 (>51); GLUCOSE, FASTING 424 MG/DL (70-100); POTASSIUM SERUM 3.5 MEQ/L (3.5-5.1); SODIUM LEVEL 136 MEQ/L (136-145)
[2018-03-23] MEDS: HumaLOG INSULIN (NovoLOG) PER UNIT SC ×2 (08:28→12:20)
[2018-03-23] MEDS: LEVEMIR (INSULIN DETEMIR) 1 UNITS/0.01ML SC (08:29)
[2018-03-23] MEDS: DULoxetine 30 MG CAP (CYMBALTA) PO (08:29)
[2018-03-23] MEDS: FAMOTIDINE 20 MG TAB PO (08:29)
[2018-03-23] MEDS: AUGMENTIN 875 MG TAB PO (08:29)
[2018-03-23] MEDS: PREGABALIN 75 MG CAP(LYRICA) PO (08:30)
[2018-03-23] MEDS: LACTOBACILLUS ACIDOPHILUS CAP (BACID) PO (08:30)
[2018-03-23] MEDS: FUROSEMIDE 80 MG TAB PO (08:30)
[2018-03-23] MEDS: CARVedilol 6.25 MG TAB PO (08:32)
[2018-03-23] MEDS: EUCERIN 120GM CREAM EXT (08:35)
[2018-03-23 11:42] LABS: BEDSIDE GLUCOSE 339 MG/DL (70-105)
== END 2018-03-23 15:50 | disposition home health service (06) | DRG 254 ==
LOC: M MS5PR 03-11 10:35 → M ED 09:48 → M ED INP 17:13 → M PCU 22:59
PROC: 0JBC0ZZ Excision of Pelvic Region Subcutaneous Tissue and Fascia, Open Approach (ICD-10-PCS; principal; 2018-03-17 12:14)
PROC: 0JBC0ZZ Excision of Pelvic Region Subcutaneous Tissue and Fascia, Open Approach (ICD-10-PCS; 2018-03-17 12:14)
PROC: 30233N1 Transfusion of Nonautologous Red Blood Cells into Peripheral Vein, Percutaneous Approach (ICD-10-PCS; 2018-03-17 12:14)
PROC: 30233K1 Transfusion of Nonautologous Frozen Plasma into Peripheral Vein, Percutaneous Approach (ICD-10-PCS; 2018-03-17 12:14)
DX: K65.4 Sclerosing mesenteritis (principal); D68.4 Acquired coagulation factor deficiency; I50.32 Chronic diastolic (congestive) heart failure; E11.40 Type 2 diabetes mellitus with diabetic neuropathy, unspecified; E11.51 Type 2 diabetes mellitus with diabetic peripheral angiopathy without gangrene; D62 Acute posthemorrhagic anemia; E11.649 Type 2 diabetes mellitus with hypoglycemia without coma; I48.91 Unspecified atrial fibrillation; L03.311 Cellulitis of abdominal wall; I25.5 Ischemic cardiomyopathy; F32.9 Major depressive disorder, single episode, unspecified; B95.1 Streptococcus, group B, as the cause of diseases classified elsewhere; B95.61 Methicillin susceptible Staphylococcus aureus infection as the cause of diseases classified elsewhere; I34.0 Nonrheumatic mitral (valve) insufficiency; E66.9 Obesity, unspecified; E78.5 Hyperlipidemia, unspecified; I25.10 Atherosclerotic heart disease of native coronary artery without angina pectoris; E03.9 Hypothyroidism, unspecified; I11.0 Hypertensive heart disease with heart failure; F41.9 Anxiety disorder, unspecified; Z79.82 Long term (current) use of aspirin; Z79.4 Long term (current) use of insulin; Z79.01 Long term (current) use of anticoagulants; Z79.899 Other long term (current) drug therapy; Z87.891 Personal history of nicotine dependence; Z88.1 Allergy status to other antibiotic agents; Z88.8 Allergy status to other drugs, medicaments and biological substances; Z95.810 Presence of automatic (implantable) cardiac defibrillator; Z95.5 Presence of coronary angioplasty implant and graft; Z95.4 Presence of other heart-valve replacement; Z91.19 Patient's noncompliance with other medical treatment and regimen

== ENCOUNTER → 2018-04-15 | Outpatient (REF) | payer OTHER ==
[2018-04-15 19:01] LABS: ESTIMATED AVERAGE GLUCOSE 255 MG/DL (60-110); HEMOGLOBIN A1c 10.5 %
== END ==
LOC: M SFHCPLAZ 14:34
DX: E11.69 Type 2 diabetes mellitus with other specified complication (principal)
CPT/HCPCS: 83036

== ENCOUNTER → 2018-05-29 | Outpatient (REF) | payer OTHER | LOC: M SFHCPLAZ 11:33 | DX: Z51.81 Encounter for therapeutic drug level monitoring (principal); Z79.01 Long term (current) use of anticoagulants; Z53.8 Procedure and treatment not carried out for other reasons ==

== ENCOUNTER 2018-07-12 10:56 | Emergency (ER) | payer OTHER ==
[~2018-07-12] VITALS: Ht 177.8 cm; Wt 107.3 kg
[~2018-07-12 10:56] MED LIST changes: +AMOX875T2 PO; +AQUA100OI TOP; +ASPI81TA85 PO; +ATIV1TAB7 PO; +ATOR1TAB21 PO; +BACT800T5 PO; +CARV6.25 PO; +CEPH500C PO; +CLEO300C2 PO; +COUM1TAB19 PO; +COUM6TAB PO; +CRES20TA PO; +CYCL10TA PO; +DICL13PA TOP; +DULO1CAP2 PO; +ENTR1TAB PO; +FURO80TA2 PO; +INSUDET SC; +INSUH10VL SC; +KLOR10TA76 PO; +LASI80TA3 PO; +LEVO100T5 PO; +LEVO137T14 PO; +LYRI75CA PO; +METF10004 PO; +NICO14PA TD; +NORCOTAB PO; +NYAM10003 TOP; +PERC5TAB12 PO; +PERCOCET PO; +PREG100CA PO; +PROBCAP2 PO; +RANI150C PO; +RANI1SYP PO; +RIFA150C PO; +SULF1POW; +TOUJ1.2I SC; -VANCOMYCIN HCL 1,000 MG, VIAL MATE ADAPTER 1 EACH in D5W 250 ML IV
[2018-07-12 11:55] LABS: VENOUS BASE EXCESS -0.4 (-2.0-2.0); VENOUS HCO3 25.3 MEQ/L (23.0-27.0); VENOUS O2 SATURATION 64.6 % (60.0-80.0); VENOUS PARTIAL PRESSURE CO2 45.7 mmHg (38.0-50.0); VENOUS PARTIAL PRESSURE O2 36.4 mmHg (30.0-50.0); VENOUS PH 7.361 UNITS (7.330-7.430); VENOUS STANDARD HCO3 23.4 MEQ/L; VENOUS TOTAL CO2 26.7 MEQ/L (24.0-28.0)
[2018-07-12 11:59] LABS: BASO # 0.1 10^3/uL (0.0-0.2); BASO % 0.6 % (0.0-1.0); EOS % 0.5 % (0.0-3.0); HEMATOCRIT 41.7 % (36.0-47.0); HEMOGLOBIN 11.9 g/dl (12.0-15.5); LYMPH # 0.6 10^3/uL (1.5-4.5); LYMPH % 7.8 % (24.0-44.0); MEAN CORPUSCULAR HGB CONC 28.5 g/dl (32.0-36.5); MEAN CORPUSCULAR VOLUME 77.2 fl (80.0-96.0); MONO # 0.5 10^3/uL (0.0-0.8); MONO % 6.9 % (0.0-5.0); NEUTROPHILS # 6.5 10^3/uL (1.8-7.7); NEUTROPHILS % 83.6 % (36.0-66.0); PLATELET COUNT, AUTOMATED 241 10^3/uL (150-450); WHITE BLOOD COUNT 7.8 10^3/uL (4.0-10.0)
[2018-07-12 12:09] LABS: INR 2.13; PROTHROMBIN TIME 24.2 SECONDS (12.1-14.4)
[2018-07-12 12:10] LABS: PARTIAL THROMBOPLASTIN TIME 42.3 SECONDS (25.4-37.6)
[2018-07-12 12:25] LABS: ERYTHROCYTE SEDIMENTATION RATE 54 mm/hr (0-30)
[2018-07-12 12:27] LABS: HEMOGLOBIN A1c 14.6 %
[2018-07-12] MEDS ORDERED: MORPHINE 2 MG/ML 1ML SYRINGE (J2270) IV PRN (13:00)
[2018-07-12] MEDS ORDERED: HumaLOG INSULIN (NovoLOG) PER UNIT SC ONE (13:00)
[2018-07-12 13:05] LABS: VENOUS BASE EXCESS 1.3 (-2.0-2.0); VENOUS HCO3 27.9 MEQ/L (23.0-27.0); VENOUS O2 SATURATION 51.5 % (60.0-80.0); VENOUS PARTIAL PRESSURE O2 30.1 mmHg (30.0-50.0); VENOUS PH 7.347 UNITS (7.330-7.430); VENOUS STANDARD HCO3 24.6 MEQ/L; VENOUS TOTAL CO2 29.5 MEQ/L (24.0-28.0)
[2018-07-12] MEDS ORDERED: PARO5TAB PO (13:18)
[2018-07-12 13:34] LABS: ACETONE/KETONE 9.1 MG/DL (<2.81); ALBUMIN 2.6 GM/DL (3.2-5.2); BILIRUBIN,DIRECT 0.2 MG/DL (0.0-0.2); BILIRUBIN,TOTAL 0.6 MG/DL (0.2-1.0); C REACTIVE PROTEIN QUANTITATIV 6.83 MG/DL (0.00-0.30); CALCIUM LEVEL 8.7 MG/DL (8.5-10.1); CREATININE FOR GFR 1.12 MG/DL (0.55-1.30); GLOMERULAR FILTRATION RATE 53.6 (>51); PHOSPHORUS LEVEL 3.1 MG/DL (2.5-4.9); POTASSIUM SERUM 4.3 MEQ/L (3.5-5.1); TOTAL PROTEIN 6.7 GM/DL (6.4-8.2)
--- NOTE | 2018-07-12 14:41 | REP ---
PARASPINAL SOFT TISSUE ULTRASOUND: HISTORY: Wound in the lumbar area. FINDINGS: Two areas are scanned. A mid back scar from previous surgery procedure done October/November time frame 2018. Scanning shows evidence of fibrosis but no abnormal fluid collection. In the left lower back area in an area of swelling scanning shows soft tissue edema. No abnormal fluid collection is seen. IMPRESSION: Soft-tissue fibrosis and edema. No abnormal fluid collection seen. Electronically Signed by Reymundo Jay MD 07/12/2018 04:43 P
[2018-07-12] MEDS ORDERED: CEFD1CAP8 PO (16:01)
[2018-07-12] MEDS ORDERED: DOXY-350 PO (16:01)
[2018-07-12 16:12] VITALS: BP 153/72
[2018-07-12] MEDS ORDERED: CEFDINIR 300 MG CAP (OMNICEF) PO ONE (16:15)
[2018-07-12] MEDS ORDERED: DOXYCYCLINE HYCLATE 100 MG TAB PO ONE (16:15)
== END 2018-07-12 16:49 | disposition home or self-care (01) ==
LOC: M ED 12:41
DX: E11.9 Type 2 diabetes mellitus without complications (principal); I25.10 Atherosclerotic heart disease of native coronary artery without angina pectoris; E78.5 Hyperlipidemia, unspecified; Z98.0 Intestinal bypass and anastomosis status; F17.200 Nicotine dependence, unspecified, uncomplicated; Z79.82 Long term (current) use of aspirin; Z79.899 Other long term (current) drug therapy; Z79.01 Long term (current) use of anticoagulants; Z79.890 Hormone replacement therapy; Z79.4 Long term (current) use of insulin; Z88.1 Allergy status to other antibiotic agents; Z88.8 Allergy status to other drugs, medicaments and biological substances
CPT/HCPCS: 36415; 76705; 80048; 80076; 82010; 82803; 83036; 83605; 83690; 83735; 83930; 84100; 85025; 85610; 85652; 85730; 86140; 87040; 87070; 87077; 87186; 87205; 93041; 96374; 99285; J2270

== ENCOUNTER → 2018-07-15 | Outpatient (REF) | payer OTHER ==
[~2018-07-15] MED LIST changes: +CEFD1CAP8 PO; +DOXY-350 PO; +PARO5TAB PO
[2018-07-15 13:48] LABS: INR 4.44; PROTHROMBIN TIME 43.4 SECONDS (12.1-14.4)
== END ==
LOC: M SFHCPLAZ 12:15
PROVIDERS: ATTEND Family Medicine
DX: Z51.81 Encounter for therapeutic drug level monitoring (principal)

== ENCOUNTER → 2018-07-22 | Outpatient (CLI) | payer OTHER ==
[2018-07-22 16:00] LABS: INR 3.09; PROTHROMBIN TIME 32.6 SECONDS (12.1-14.4)
== END ==
LOC: M WUC 14:05
PROVIDERS: ATTEND Obstetrics & Gynecology
DX: Z51.81 Encounter for therapeutic drug level monitoring (principal); Z79.899 Other long term (current) drug therapy

== ENCOUNTER → 2018-08-05 | Outpatient (REF) | payer OTHER ==
[2018-08-05 16:41] LABS: INR 1.01; PROTHROMBIN TIME 13.4 SECONDS (12.1-14.4)
== END ==
LOC: M SFHCPLAZ 14:06
PROVIDERS: ATTEND Family Medicine
DX: Z51.81 Encounter for therapeutic drug level monitoring (principal); Z79.01 Long term (current) use of anticoagulants

== ENCOUNTER → 2018-08-12 | Outpatient (REF) | payer OTHER ==
[2018-08-12 10:22] LABS: INR 2.01; PROTHROMBIN TIME 23.1 SECONDS (12.1-14.4)
== END ==
LOC: M SMT 09:57
PROVIDERS: ATTEND Obstetrics & Gynecology
DX: Z79.01 Long term (current) use of anticoagulants (principal)

== ENCOUNTER → 2018-08-20 | Outpatient (REF) | payer OTHER ==
[2018-08-20 16:03] LABS: INR 3.37; PROTHROMBIN TIME 34.9 SECONDS (12.1-14.4)
== END ==
LOC: M SFHCPLAZ 13:29
PROVIDERS: ATTEND Obstetrics & Gynecology
DX: Z51.81 Encounter for therapeutic drug level monitoring (principal); Z79.01 Long term (current) use of anticoagulants

== ENCOUNTER → 2018-08-23 | Outpatient (CLI) | payer OTHER ==
--- NOTE | 2018-08-23 18:02 | REP ---
Chest x-ray: Three views presented: History: AICD. Findings: Pacemaker device is seen in place in the right heart via the left side. Median sternotomy wires are noted. Mild cardiomegaly is observed. Cardiothoracic ratio today measures 52.8%. Pulmonary vasculature is slightly cephalized. Pleural angles are sharp. There is no evidence of pulmonary edema. No infiltrate is seen. Impression: Mild cardiomegaly. Prior sternotomy. Pacemaker. Vascular cephalization. Electronically Signed by Reymundo Jay MD 08/23/2018 07:05 P
== END ==
LOC: M WUC 15:08
PROVIDERS: ATTEND Obstetrics & Gynecology
DX: Z95.810 Presence of automatic (implantable) cardiac defibrillator (principal); I51.7 Cardiomegaly

== ENCOUNTER 2018-09-01 17:53 | Emergency (ER) | payer OTHER ==
[~2018-09-01] VITALS: Ht 175.3 cm; Wt 115.5 kg
[2018-09-01] MEDS ORDERED: BASA100I SQ (18:09)
[2018-09-01] MEDS ORDERED: ZOLP5TAB PO (18:09)
[2018-09-01] MEDS ORDERED: METF-877 PO (18:09)
[2018-09-01] MEDS ORDERED: COUM10TA PO ×2 (18:09)
[2018-09-01 18:37] LABS: BASO % 0.6 % (0.0-1.0); EOS % 0.8 % (0.0-3.0); HEMATOCRIT 40.5 % (36.0-47.0); HEMOGLOBIN 11.3 g/dl (12.0-15.5); LYMPH # 0.9 10^3/uL (1.5-4.5); MEAN CORPUSCULAR HEMOGLOBIN 21.8 pg (27.0-33.0); MEAN CORPUSCULAR HGB CONC 27.9 g/dl (32.0-36.5); MEAN CORPUSCULAR VOLUME 78.2 fl (80.0-96.0); MONO # 0.5 10^3/uL (0.0-0.8); MONO % 8.8 % (0.0-5.0); NEUTROPHILS # 3.7 10^3/uL (1.8-7.7); NEUTROPHILS % 72.4 % (36.0-66.0); PLATELET COUNT, AUTOMATED 184 10^3/uL (150-450); RED BLOOD COUNT 5.18 10^6/uL (4.00-5.40); WHITE BLOOD COUNT 5.1 10^3/uL (4.0-10.0)
[2018-09-01] MEDS ORDERED: FUROSEMIDE 40 MG/4 ML VIAL (J1940) IV ONE (18:45)
[2018-09-01 18:53] LABS: INR 4.17; PROTHROMBIN TIME 41.3 SECONDS (12.1-14.4)
--- NOTE | 2018-09-01 18:55 | ECGEPIP ---
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
[2018-09-01 19:02] LABS: ALBUMIN 2.9 GM/DL (3.2-5.2); BILIRUBIN,DIRECT 0.2 MG/DL (0.0-0.2); BILIRUBIN,TOTAL 0.6 MG/DL (0.2-1.0); CALCIUM LEVEL 8.1 MG/DL (8.5-10.1); CREATININE FOR GFR 1.05 MG/DL (0.55-1.30); GLOMERULAR FILTRATION RATE 57.7 (>51); MB/CK RELATIVE INDEX 4.33 (< OR =4); TOTAL PROTEIN 6.3 GM/DL (6.4-8.2); TROPONIN I 0.02 NG/ML (< 0.10)
--- NOTE | 2018-09-01 19:03 | REP ---
Chest one-view HISTORY: Cough Comparison: 08/24/2017 The lungs are clear. The cardiac silhouette is enlarged. The pulmonary vasculature is normal in appearance. A cardiac pacemaker is present. Impression: Cardiomegaly. Electronically Signed by Cayden Patterson MD 09/01/2018 06:55 P
[2018-09-01 19:08] LABS: INFLUENZA A AMPLIFICATION NEGATIVE (NEGATIVE); INFLUENZA B AMPLIFICATION NEGATIVE (NEGATIVE)
[2018-09-01 21:47] VITALS: BP 146/69
== END 2018-09-01 21:50 | disposition home or self-care (01) ==
LOC: EDBD 17:53 → M ED 17:53
DX: R60.0 Localized edema (principal); Z79.01 Long term (current) use of anticoagulants; I50.9 Heart failure, unspecified; E11.9 Type 2 diabetes mellitus without complications; I48.91 Unspecified atrial fibrillation; I25.10 Atherosclerotic heart disease of native coronary artery without angina pectoris; Z79.899 Other long term (current) drug therapy; Z79.82 Long term (current) use of aspirin; Z88.1 Allergy status to other antibiotic agents; Z88.8 Allergy status to other drugs, medicaments and biological substances
CPT/HCPCS: 71045; 80048; 80076; 82550; 82553; 83880; 85025; 85610; 87502; 93005; 93041; 94760; 96374; 99285; J1940

== ENCOUNTER → 2018-09-02 | Outpatient (REF) | payer OTHER ==
[~2018-09-02] MED LIST changes: +ATOR80TA59 PO; +BASA100I SQ; +COUM10TA PO; +FIRV50SO PO; +METF-877 PO; +ZOLP5TAB PO
== END ==
LOC: M SHH 15:46 → M LAB REF 15:46
PROVIDERS: ATTEND Internal Medicine Cardiovascular Disease
DX: I50.42 Chronic combined systolic (congestive) and diastolic (congestive) heart failure (principal)

== ENCOUNTER → 2018-09-02 | Outpatient (REF) | payer OTHER ==
[2018-09-02 16:46] LABS: INR 2.35; PROTHROMBIN TIME 26.2 SECONDS (12.1-14.4)
== END ==
LOC: M LAB REF 15:54 → M SHH 15:54
PROVIDERS: ATTEND Hospitalist
DX: R79.1 Abnormal coagulation profile (principal); Z79.01 Long term (current) use of anticoagulants

== ENCOUNTER → 2018-09-04 | Outpatient (REF) | payer OTHER ==
[2018-09-04 13:47] LABS: CALCIUM LEVEL 8.4 MG/DL (8.5-10.1); CREATININE FOR GFR 1.12 MG/DL (0.55-1.30); GLOMERULAR FILTRATION RATE 53.6 (>51); POTASSIUM SERUM 4.3 MEQ/L (3.5-5.1)
== END ==
LOC: M SFHCPLAZ 11:15
PROVIDERS: ATTEND Family Medicine
DX: I50.32 Chronic diastolic (congestive) heart failure (principal); Z79.01 Long term (current) use of anticoagulants

== ENCOUNTER 2018-09-06 16:15 | Inpatient (IN) | payer OTHER ==
[~2018-09-06] VITALS: Ht 175.3 cm; Wt 113.2 kg
[~2018-09-06 16:15] MED LIST changes: -ATOR80TA59 PO; -FIRV50SO PO
[2018-09-06 17:55] LABS: BASO % 0.8 % (0.0-1.0); HEMATOCRIT 41.3 % (36.0-47.0); HEMOGLOBIN 11.5 g/dl (12.0-15.5); LYMPH # 0.7 10^3/uL (1.5-4.5); LYMPH % 17.6 % (24.0-44.0); MEAN CORPUSCULAR HEMOGLOBIN 22.2 pg (27.0-33.0); MEAN CORPUSCULAR HGB CONC 27.8 g/dl (32.0-36.5); MEAN CORPUSCULAR VOLUME 79.7 fl (80.0-96.0); MONO # 0.8 10^3/uL (0.0-0.8); MONO % 22.1 % (0.0-5.0); NEUTROPHILS # 2.2 10^3/uL (1.8-7.7); PLATELET COUNT, AUTOMATED 176 10^3/uL (150-450); RED BLOOD COUNT 5.18 10^6/uL (4.00-5.40); WHITE BLOOD COUNT 3.8 10^3/uL (4.0-10.0)
[2018-09-06] MEDS ORDERED: IPRATROPIUM 0.5MG/ALBUTEROL 2.5MG INH SOL UD 3ML (DUONEB)(J7620) NEB PRN (18:00)
[2018-09-06 18:19] LABS: INFLUENZA A AMPLIFICATION POSITIVE (NEGATIVE); INFLUENZA B AMPLIFICATION NEGATIVE (NEGATIVE)
[2018-09-06 18:36] LABS: INR 1.84; PROTHROMBIN TIME 21.6 SECONDS (12.1-14.4)
[2018-09-06 18:49] LABS: CALCIUM LEVEL 8.5 MG/DL (8.5-10.1); CREATININE FOR GFR 1.21 MG/DL (0.55-1.30); MB/CK RELATIVE INDEX 1.97 (< OR =4); TROPONIN I 0.02 NG/ML (< 0.10)
[2018-09-06] MEDS ORDERED: ISOVUE-370 76% 125ML VIAL (Q9967 PER ML) As Ordered ONE (18:53)
[2018-09-06] MEDS ORDERED: methylPREDNISolone INJ 125 MG/2 ML VIAL (J2930) IV ONE (19:00)
--- NOTE | 2018-09-06 19:47 | REPVR ---
EXAM: CT Angiography Chest With Contrast EXAM DATE/TIME: 09/06/2018 7:01 PM CLINICAL HISTORY: 58 years old, female; Signs and symptoms; Shortness of breath; Additional info: SOB TECHNIQUE: Imaging protocol: Axial computed tomographic angiography images of the chest with intravenous contrast using CT angiography protocol. Coronal and sagittal reformatted images were created and reviewed. 3D rendering: MIP reconstructed images were created and reviewed. Radiation optimization: All CT scans at this facility use at least one of these dose optimization techniques: automated exposure control; mA and/or kV adjustment per patient size (includes targeted exams where dose is matched to clinical indication); or iterative reconstruction. Contrast material: isovue 370 Contrast volume: 100 ml Contrast route: IV COMPARISON: CT ANGIO CHEST 11/16/2017 5:14 PM FINDINGS: Pulmonary arteries: No pulmonary embolus. Aorta: The aorta demonstrates mild atherosclerotic calcification. No aortic aneurysm or dissection. Lungs: Small patchy infiltrate left lower lobe. Small focus of air with disease in the left upper lobe with surrounding patchy infiltrate. 2-3 millimeter subpleural noncalcified nodule right upper lobe likely postinflammatory. No followup necessary. Calcified granuloma right lower lobe. Pleural space: Normal. No pneumothorax. No pleural effusion. Heart: Status post CABG. Lymph nodes: Multiple small mediastinal lymph nodes measure up to 1.2 centimeters likely postinflammatory. Bones/joints: Status post sternotomy. Soft tissues: Unremarkable. IMPRESSION: 1. No aortic aneurysm or dissection. 2. No pulmonary embolus. Electronically signed by: Johnathon Rocha On 09/06/2018 19:46:45 PM
[2018-09-06] MEDS ORDERED: ATOR80TA59 PO (20:42)
[2018-09-06] MEDS ORDERED: ACETAMINOPHEN TAB 650MG DOSE (2X325MG) PO PRN (21:00)
[2018-09-06] MEDS ORDERED: MORPHINE 4 MG/ML 1ML VIAL/SYRINGE (J2270) IV PRN (21:00)
[2018-09-06] MEDS ORDERED: FUROSEMIDE 80 MG TAB PO SCH (21:00)
[2018-09-06] MEDS ORDERED: PERCOCET 5MG/325MG TAB PO PRN (21:00)
[2018-09-06] MEDS ORDERED: ONDANSETRON 4 MG TAB (S0181) PO PRN (21:00)
--- NOTE | 2018-09-06 21:02 | REP ---
CHEST, TWO VIEWS: Two views of the chest are performed and compared to prior study of 09/01/2018 as well as 08/23/2018. There is no evidence of acute infiltrate or pulmonary edema. There is mild cardiomegaly. There are multiple sternal wires present, the superior wires are broken. There is a left single lead pacemaker. There are mild degenerative changes of the spine. IMPRESSION: Mild cardiomegaly. No evidence of acute infiltrate. Electronically Signed by Lucian Garcia MD 09/07/2018 06:44 P
[2018-09-06] MEDS ORDERED: WARFARIN SOD 5 MG TAB PO ONE ×2 (21:30→21:45)
[2018-09-06] MEDS ORDERED: PILL CRUSHER/CUTTER 1 EACH XX PRN (23:00)
[2018-09-06] MEDS: LEVEMIR (INSULIN DETEMIR) 1 UNITS/0.01ML SC SCH (23:25)
[2018-09-06] MEDS: zolPIDEM TARTRATE 5 MG TAB PO SCH (23:26)
[2018-09-06] MEDS: PREGABALIN 75 MG CAP(LYRICA) PO SCH (23:26)
[2018-09-06] MEDS: ATORVASTATIN 20 MG TAB PO SCH (23:27)
[2018-09-06] MEDS: CARVedilol 6.25 MG TAB PO SCH (23:29)
[2018-09-06] MEDS: FAMOTIDINE 20 MG TAB PO SCH (23:30)
[2018-09-07 01:00] VITALS: BP 165/79
--- NOTE | 2018-09-07 01:28 | HPEPDOC ---
[facility] Medical History & Physical Date of Admission Sep 06, 2018 History and Physical CHIEF COMPLAINT: [cough , sob ] HISTORY OF PRESENT ILLNESS: This is a 58 yo male with multiple pmhx who presented to the ED for not feeling well. Patient said she has not been feeling well since Sunday when she came to the ED and was sent back home. She came back today because of weakness, cough productive but unable to get anything out, sob and occasional chest tightness. Had chills, but denied fever, headache, change in vision, palpitation or dizziness . Ros - all 14 point ROS is negative except what listed in HPI PAST MEDICAL HISTORY DM TYPE 2. A1C (07/12/18- 14.6%) CAD (FOLLOWS WITH DR. RUBIO) RHEUMATIC HEART DISEASE; MECHANICAL MITRAL VALVE (ON COUMADIN: INR GOAL 2.5-3.5) HYPERLIPIDEMIA PVD AFIB (ON COUMADIN) COPD CHF, DIASTOLIC, AICD ([facility]) MSSA COLONIZATION WITH RECURRENT ABSCESSES AND HISTORY OF NECROTIZING INFECTIONS PERIPHERAL NEUROPATHY ALLERGIES CIPRO: DIARRHEA - SIDE EFFECTS HEPARIN SODIUM (PORCINE): BOLIVAR - ALLERGY SURGICAL HISTORY I&D X 2 NECROTIZING FASCITIS OF THE BACK 11/2017 HYSTERECTOMY TOTAL CABG 2007 STENTS 2016 L FOOT TOES STRAIGHTENED TONSILLECTOMY APPENDECTOMY CARDIAC PACEMAKER 2017 SURGICAL DEBRIDEMENT INFECTED FAT NECROSIS 01/25/2018 FAMILY HISTORY FATHER: , [place] MOTHER: DIAGNOSED WITH DIABETES SIBLINGS: DIABETES 1 SISTER(S) . 1DAUGHTER(S) - HEALTHY. SOCIAL HISTORY FORMER SMOKER ETOH - RARELY USE RECREATIONAL DRUG USE - NO LABORATORY DATA: See below. IMAGING: [REVIEWED] MICROBIOLOGY: Please see below. Physical Exam GEN: NAD , normal built HEENT: normocephalic, atraumatic, PERRLA, EOMI, external ears appears normal, neck supple, no pharyngeal erythema CVS : normal S1, S2 no murmur, rubs or gallops , PMI nondisplaced RESP: no rals, rhonchi, crackles, +productive cough and + mild scattered wheezes ABD - +BS, soft, NT, ND , no cva tenderness MSK no joint swelling, FROM, no muscle tenderness Neuro no focal deficit, AOAX3 Lymphatics- no lymphedema, no lymphadenopathy in cervical and supraclavicular chains Psych- normal mood and affect, good judgement and insight ASSESSMENT AND PLAN Influenza A positive -droplet isolation -since no fever and symptom started sunday - will hold off on tamiflu -patient has chf - so will hold off ivf -monitor off abx Diarrhea -f/u stool w/u -monitoring off ivf due to hx of chf -will give gentle hydration if patient needs it continue home meds for now, but will hold off on metformin for now, can resume on dc, basalgar changed to levemir, ISS ADDED and hypoglycemic protocol for DM2 , Reduced lasix to 40 instead of usual dose of 80mg - FOR CHF for hypothyroidism n- f/u tsh level, c/w levothyroxine DVT PPX wants to be dnr/dni Vital Signs Vital Signs Date Time Temp Pulse Resp B/P (MAP) Pulse Ox O2 Delivery O2 Flow Rate FiO2 09/07/18 00:42 96.4 09/07/18 00:00 93 09/06/18 23:29 183/92 (122) 97 Room Air 09/06/18 18:15 20 Laboratory Data Labs 24H Laboratory Tests 2 09/06/18 17:38: Immature Granulocyte % (Auto) 0.5, White Blood Count 3.8L, Red Blood Count 5.18, Hemoglobin 11.5L, Hematocrit 41.3, Mean Corpuscular Volume 79.7L, Mean Corpuscular Hemoglobin 22.2L, Mean Corpuscular Hemoglobin Concent 27.8L, Red Cell Distribution Width 21.7H, Platelet Count 176, Neutrophils (%) (Auto) 59.0, Lymphocytes (%) (Auto) 17.6L, Monocytes (%) (Auto) 22.1H, Eosinophils (%) (Auto) 0.0, Basophils (%) (Auto) 0.8, Neutrophils # (Auto) 2.2, Lymphocytes # (Auto) 0.7L, Monocytes # (Auto) 0.8, Eosinophils # (Auto) 0.0, Basophils # (Auto) 0.0, Nucleated Red Blood Cells % (auto) 0.0, Influenza Type A (RT-PCR) POSITIVEH, Influenza Type B (RT-PCR) NEGATIVE, Respiratory Syncytial Virus (RT-PCR NEGATIVE 09/06/18 18:16: Prothrombin Time 21.6H, Prothromb Time International Ratio 1.84, Anion Gap 10, Glomerular Filtration Rate 49.0L, Blood Urea Nitrogen 34H, Creatinine 1.21, Sodium Level 136, Potassium Level 4.0, Chloride Level 99, Carbon Dioxide Level 27, Calcium Level 8.5, Total Creatine Kinase 183, Creatine Kinase MB 4.0H, Creatine Kinase MB Relative Index 1.97, Troponin I 0.02, IX-Vwb-X-Type N atriuretic Peptide 4309H 09/06/18 23:22: Bedside Glucose (Misc Panel) 309H CBC/BMP Laboratory Tests 09/06/18 17:38 Red Blood Count 5.18, Mean Corpuscular Volume 79.7 L, Mean Corpuscular Hemoglobin 22.2 L, Mean Corpuscular Hemoglobin Concent 27.8 L, Red Cell Distribution Width 21.7 H, Neutrophils (%) (Auto) 59.0, Lymphocytes (%) (Auto) 17.6 L, Monocytes (%) (Auto) 22.1 H, Eosinophils (%) (Auto) 0.0, Basophils (%) (Auto) 0.8, Neutrophils # (Auto) 2.2, Lymphocytes # (Auto) 0.7 L, Monocytes # (Auto) 0.8, Eosinophils # (Auto) 0.0, Basophils # (Auto) 0.0 09/06/18 18:16 Calcium Level 8.5, Total Creatine Kinase 183 Home Medications Scheduled (Mateusaglcaryn Malloy) 100 Unit/Ml Inj, 85 UNITS SQ BID PATIENT STATES SHE HASN'T EATEN ANYTHING FOR 4 DAYS SO SHE USED LESS INSULIN Aspirin (Aspir-81) 81 Mg Tab, 81 MG PO DAILY Atorvastatin Calcium (Atorvastatin Calcium) 80 Mg Tab, 80 MG PO QHS Carvedilol (Carvedilol) 6.25 Mg Tab, 6.25 MG PO BID Furosemide (Lasix) 80 Mg Tab, 80 MG PO BID Insulin Aspart (Novolog) 100 U/Ml Inj, 10 UNITS SC AC Levothyroxine Sodium (Levoxyl) 137 Mcg Tab, 137 MCG PO DAILY Metformin Hydrochloride (Metformin Hydrochloride) 1,000 Mg Tab, 1,000 MG PO BID Paroxetine (Paroxetine HCl) 5 Mg Halftab, 2.5 MG PO DAILY Pregabalin (Lyrica) 75 Mg Cap, 75 MG PO TID Ranitidine HCl (Ranitidine HCl) 150 Mg Cap, 1 CAP PO BID Warfarin Sod (Coumadin) 10 Mg Tab, 15 MG PO 3XW TAKES QHS Warfarin Sod (Coumadin) 10 Mg Tab, 10 MG PO 4XWK PATIENT STATES SHE TOOK 20MG LAST NIGHT 09/05/2018 Zolpidem Tartrate (Zolpidem Tartrate) 5 Mg Tab, 5 MG PO QHS Allergies Coded Allergies: Heparin (Unverified Adverse Reaction, Severe, BOLIVAR, 03/04/18) Ciprofloxacin (Unverified Adverse Reaction, Mild, severe diarrhea, 03/04/18) DONNA ROBLES MD Sep 07, 2018 01:03
[2018-09-07] MEDS ORDERED: GLUCAGON FOR INJ 1 MG VIAL (J1610) SC PRN (04:00)
[2018-09-07] MEDS ORDERED: DEXTROSE 50% 50 ML SYRINGE IV PRN (04:00)
[2018-09-07] MEDS ORDERED: GLUCOSE 4 GM CHEW TABLET PO PRN (04:00)
[2018-09-07] MEDS: LEVOTHYROXINE 137MCG TABLET (0.137MG) PO SCH (05:15)
[2018-09-07 06:00] VITALS: BP 153/81
[2018-09-07] MEDS ORDERED: methylPREDNISolone INJ 40 MG/1 ML VIAL (J2920) IV SCH (06:00)
[2018-09-07 06:49] LABS: BASO % 0.4 % (0.0-1.0); HEMATOCRIT 41.6 % (36.0-47.0); HEMOGLOBIN 11.8 g/dl (12.0-15.5); LYMPH # 0.3 10^3/uL (1.5-4.5); LYMPH % 13.9 % (24.0-44.0); MEAN CORPUSCULAR HEMOGLOBIN 22.3 pg (27.0-33.0); MEAN CORPUSCULAR HGB CONC 28.4 g/dl (32.0-36.5); MEAN CORPUSCULAR VOLUME 78.8 fl (80.0-96.0); MONO # 0.1 10^3/uL (0.0-0.8); MONO % 2.9 % (0.0-5.0); NEUTROPHILS % 82.4 % (36.0-66.0); PLATELET COUNT, AUTOMATED 171 10^3/uL (150-450); RED BLOOD COUNT 5.28 10^6/uL (4.00-5.40); WHITE BLOOD COUNT 2.4 10^3/uL (4.0-10.0)
[2018-09-07 06:56] LABS: INR 2.65; PROTHROMBIN TIME 28.8 SECONDS (12.1-14.4)
--- NOTE | 2018-09-07 07:21 | ECGEPIP ---
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
[2018-09-07 07:26] LABS: CALCIUM LEVEL 8.2 MG/DL (8.5-10.1); CREATININE FOR GFR 1.29 MG/DL (0.55-1.30); GLOMERULAR FILTRATION RATE 45.5 (>51); POTASSIUM SERUM 3.8 MEQ/L (3.5-5.1); THYROID STIMULATING HORMONE 1.46 uIU/ML (0.358-3.740)
[2018-09-07] MEDS ORDERED: metFORMIN (GLUCOPHAGE) 1000 MG TABLET PO SCH (08:00)
[2018-09-07] MEDS: HumaLOG INSULIN (NovoLOG) PER UNIT SC SCH ×6 (08:31→18:54)
[2018-09-07] MEDS: LEVEMIR (INSULIN DETEMIR) 1 UNITS/0.01ML SC SCH ×2 (08:32→21:00)
[2018-09-07] MEDS: ASPIRIN 81 MG ENTERIC TAB PO SCH (08:35)
[2018-09-07] MEDS: PARoxetine 10MG TABLET PO SCH (08:35)
[2018-09-07] MEDS: FUROSEMIDE 40 MG TAB PO SCH ×2 (08:35→22:39)
[2018-09-07] MEDS: PREGABALIN 75 MG CAP(LYRICA) PO SCH ×3 (08:35→22:38)
[2018-09-07] MEDS: FAMOTIDINE 20 MG TAB PO SCH ×2 (08:35→22:39)
[2018-09-07] MEDS: CARVedilol 6.25 MG TAB PO SCH ×2 (08:35→22:39)
[2018-09-07] MEDS: IPRATROPIUM 0.5MG/ALBUTEROL 2.5MG INH SOL UD 3ML (DUONEB)(J7620) NEB SCH ×2 (13:54→20:13)
[2018-09-07 14:00] VITALS: BP 143/68
[2018-09-07] MEDS: OSELTAMIVIR PHOSPHATE 75 MG CAP (TAMIFLU) PO SCH ×2 (15:48→22:38)
[2018-09-07] MEDS: LACTOBACILLUS ACIDOPHILUS CAP (BACID) PO SCH (18:54)
[2018-09-07] MEDS: VANCOMYCIN ORAL SOL 250MG/5ML ORAL SYRINGE PO SCH (18:55)
[2018-09-07 19:50] LABS: APPEARANCE, URINE CLEAR (CLEAR); BACTERIA, URINE AUTO NEGATIVE (NEGATIVE); BILIRUBIN, URINE AUTO NEGATIVE (NEGATIVE); BLOOD, URINE BLOOD 1+ (NEGATIVE); COLOR, URINE YELLOW (YELLOW); GLUCOSE, URINE (UA) AUTO NEGATIVE (NEGATIVE); KETONE, URINE AUTO NEGATIVE (NEGATIVE); LEUKOCYTE ESTERASE, URINE AUTO NEGATIVE (NEGATIVE); MUCUS, URINE SMALL (NEGATIVE); NITRITE, URINE AUTO NEGATIVE (NEGATIVE); PROTEIN, URINE AUTO 2+ mg/dL (NEGATIVE); RBC, URINE AUTO 1 /HPF (0-3); SPECIFIC GRAVITY URINE AUTO 1.019 (1.002-1.035); SQUAMOUS EPITHELIAL CELL UR AU 1 /HPF (0-6); UROBILINOGEN, URINE AUTO 0.2 mg/dL (0.0-2.0); WBC, URINE AUTO 1 /HPF (0-3)
[2018-09-07 22:00] VITALS: BP 134/65
[2018-09-07] MEDS: zolPIDEM TARTRATE 5 MG TAB PO SCH (22:38)
[2018-09-07] MEDS: ATORVASTATIN 20 MG TAB PO SCH (22:38)
[2018-09-08] MEDS: VANCOMYCIN ORAL SOL 250MG/5ML ORAL SYRINGE PO SCH ×4 (00:37→18:17)
[2018-09-08] MEDS: IPRATROPIUM 0.5MG/ALBUTEROL 2.5MG INH SOL UD 3ML (DUONEB)(J7620) NEB SCH ×4 (02:00→20:30)
[2018-09-08] MEDS: LEVOTHYROXINE 137MCG TABLET (0.137MG) PO SCH (05:34)
[2018-09-08 05:47] LABS: HEMATOCRIT 36.7 % (36.0-47.0); HEMOGLOBIN 10.6 g/dl (12.0-15.5); MEAN CORPUSCULAR HEMOGLOBIN 22.4 pg (27.0-33.0); MEAN CORPUSCULAR HGB CONC 28.9 g/dl (32.0-36.5); MEAN CORPUSCULAR VOLUME 77.6 fl (80.0-96.0); PLATELET COUNT, AUTOMATED 166 10^3/uL (150-450); RED BLOOD COUNT 4.73 10^6/uL (4.00-5.40); WHITE BLOOD COUNT 7.5 10^3/uL (4.0-10.0)
[2018-09-08 06:00] VITALS: BP 170/91
[2018-09-08 06:07] LABS: CALCIUM LEVEL 8.1 MG/DL (8.5-10.1); CREATININE FOR GFR 1.02 MG/DL (0.55-1.30); GLOMERULAR FILTRATION RATE 59.7 (>51); POTASSIUM SERUM 3.4 MEQ/L (3.5-5.1)
[2018-09-08] MEDS: HumaLOG INSULIN (NovoLOG) PER UNIT SC SCH ×6 (07:30→17:24)
--- NOTE | 2018-09-08 08:57 | REP ---
CHEST, TWO VIEWS: Two views of the chest are performed and compared to a prior study of 09/06/2018. There is no change in the lung lugo with no new infiltrate. There is slight enlargement of the heart. There is mild calcification of the thoracic aorta. The mediastinal silhouette is unremarkable. Multiple sternal wires are present as well a left single lead pacemaker. There are mild degenerative changes of the spine. IMPRESSION: No acute pulmonary disease with no significant change compared to the prior study. Electronically Signed by Lucian Garcia MD 09/08/2018 10:35 A
[2018-09-08] MEDS ORDERED: predniSONE 20 MG TAB PO SCH (09:00)
[2018-09-08] MEDS: LACTOBACILLUS ACIDOPHILUS CAP (BACID) PO SCH ×2 (10:05→18:17)
[2018-09-08] MEDS: LEVEMIR (INSULIN DETEMIR) 1 UNITS/0.01ML SC SCH ×2 (10:05→22:09)
[2018-09-08] MEDS: PARoxetine 10MG TABLET PO SCH (10:06)
[2018-09-08] MEDS: FAMOTIDINE 20 MG TAB PO SCH ×2 (10:06→22:08)
[2018-09-08] MEDS: ASPIRIN 81 MG ENTERIC TAB PO SCH (10:06)
[2018-09-08] MEDS: FUROSEMIDE 40 MG TAB PO SCH ×2 (10:06→22:08)
[2018-09-08] MEDS: CARVedilol 6.25 MG TAB PO SCH ×2 (10:06→22:07)
[2018-09-08] MEDS: PREGABALIN 75 MG CAP(LYRICA) PO SCH ×3 (10:06→22:07)
--- NOTE | 2018-09-08 11:40 | IPNPDOC ---
Date Seen The patient was seen on 09/08/18. Progress Note SUBJECTIVE: Patient tells me she is feeling better today she tells me she still having diarrhea and she still has a lingering dry cough she otherwise denies fevers chills chest pain or shortness of breath he denies any abdominal pain whatsoever OBJECTIVE PHYSICAL EXAMINATION: VITAL SIGNS: Please see below. GENERAL: Obese disheveled female sitting up eating a large breakfast she does not appear to be in any acute distress HEENT: Cranial nerves II through XII grossly intact she has hirsutism CARDIOVASCULAR: S1-S2 regular. RESPIRATORY: Clear to auscultation. ABDOMINAL: Grossly obese bowel sounds present abdomen soft and nontender EXTREMITIES: No clubbing cyanosis or edema LABORATORY DATA, IMAGING STUDIES, MICROBIOLOGY: Please see below. DVT prophylaxis ordered?: Teds and sequentials ASSESSMENT AND PLAN: This is a 58-year-old female with C. difficile colitis. PROBLEMS: 1. C. difficile colitis: Yesterday and today the patient continues to complain of diarrhea she started on by mouth vancomycin for her stool being positive for C. difficile. The patient has a history of chronic wounds and has had intermittent antibiotic use we'll treat her and see if her symptoms do improve at the present time it appears be relatively mild case she is tolerating a diet and has minimal abdominal pain but is having very frequent loose stools. 2. Influenza: She is at least 1 week intercourse her cough is minimal respiratory status is at his baseline given that the Tamiflu may worsen her diarrhea at this time I'll forego treating her I suspect she is near the end of her disease process. There was some concern that she was wheezy upon her presentation and she did receive some Solu-Medrol we'll discontinue this once again she does not appear to be wheezing at all today and is at her baseline respiratory status 3. Diabetes: She requires high doses of insulin she was hypoglycemic this morning I will titrate this down especially not be absorbing her food she's having extensive diarrhea causing her to have some hypoglycemia continue to monitor very closely. The patient has neuropathy and is also on Lyrica 4. Coronary artery disease: Continue statin and beta jordana she is anticoagulated with Coumadin as well as aspirin 5. Dyslipidemia: Continue statin 6. Atrial fibrillation: On Coumadin rate controlled with Coreg as well 7. Rheumatic heart disease with mechanical mitral valve: On Coumadin her goal INR is 2.5-3.5, today's INR is 2.6 but rising quickly monitor daily 8. Peripheral vascular disease: She is on Coumadin and statin as well as aspirin 9. COPD: She is at her baseline respiratory status 10. Congestive heart failure with diastolic dysfunction: Appears be fairly euvolemic continue with Lasix, carvedilol 11. 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 Mood disorder: Continue with Paxil 13. Insomnia: Continue with Ambien daily at bedtime when necessary 14. Gastroesophageal reflux disease: Continue with Pepcid 15. Hypothyroidism: Continue Synthroid DISPOSITION: Pending improvement in diarrhea. VS, I&O, 24H, Fishbone Vital Signs/I&O Vital Signs Date Time Temp Pulse Resp B/P (MAP) Pulse Ox O2 Delivery O2 Flow Rate FiO2 09/08/18 10:06 80 150/88 09/08/18 06:00 96.0 18 97 09/06/18 23:29 Room Air I&O- Last 24 Hours up to 6 AM 09/08/18 06:00 Intake Total 1560 ml Balance 1560 ml Laboratory Data 24H LABS Laboratory Tests 2 09/07/18 12:22: Bedside Glucose (Misc Panel) 358H 09/07/18 16:43: Bedside Glucose (Misc Panel) 126H 09/07/18 19:20: Urine Appearance CLEAR, Urine Color YELLOW, Urine pH 5.0, Urine Specific [place] 1.019, Urine Protein 2+H, Urine Glucose (UA) NEGATIVE, Urine Ketones NEGATIVE, Urine Urobilinogen 0.2, Urine Bilirubin NEGATIVE, Urine Leukocyte Esterase NEGATIVE, Urine Blood 1+H, Urine Nitrite NEGATIVE, Urine WBC (Auto) 1, Urine RBC (Auto) 1, Urine Hyaline Casts (Auto) 0, Urine Bacteria (Auto) NEGATIVE, Urine Squamous Epithelial Cells 1, Urine Mucus (Auto) SMALL, Urine Sperm (Auto) 09/07/18 19:48: Bedside Glucose (Misc Panel) 109H 09/07/18 22:13: Bedside Glucose (Misc Panel) 102 09/08/18 05:18: Nucleated Red Blood Cells % (auto) 0.0, Anion Gap 7L, Glomerular Filtration Rate 59.7, Blood Urea Nitrogen 38H, Creatinine 1.02, Sodium Level 138, Potassium Level 3.4L, Chloride Level 100, Carbon Dioxide Level 31, Calcium Level 8.1L 09/08/18 05:38: Bedside Glucose (Misc Panel) 58L 09/08/18 06:35: Bedside Glucose (Misc Panel) 78 09/08/18 09:07: Bedside Glucose (Misc Panel) 187H CBC/BMP Laboratory Tests 09/08/18 05:18 Red Blood Count 4.73, Mean Corpuscular Volume 77.6 L, Mean Corpuscular Hemoglobin 22.4 L, Mean Corpuscular Hemoglobin Concent 28.9 L, Red Cell Distribution Width 21.4 H, Calcium Level 8.1 L Microbiology Microbiology 09/07/18 Gastrointestinal Tract Panel (PCR) - Final, Complete Clostridium Difficile A/B ANTOLIN GODINEZ MD Sep 08, 2018 11:40
[2018-09-08] MEDS ORDERED: POTASSIUM CHLORIDE 10 MEQ SR TABLET PO ONE (11:45)
[2018-09-08 14:00] VITALS: BP 138/71
[2018-09-08 22:00] VITALS: BP 166/77
[2018-09-08] MEDS: zolPIDEM TARTRATE 5 MG TAB PO SCH (22:07)
[2018-09-08] MEDS: ATORVASTATIN 20 MG TAB PO SCH (22:08)
[2018-09-09] MEDS: VANCOMYCIN ORAL SOL 250MG/5ML ORAL SYRINGE PO SCH ×4 (01:12→17:12)
[2018-09-09] MEDS: IPRATROPIUM 0.5MG/ALBUTEROL 2.5MG INH SOL UD 3ML (DUONEB)(J7620) NEB SCH ×4 (02:17→19:15)
[2018-09-09] MEDS: LEVOTHYROXINE 137MCG TABLET (0.137MG) PO SCH (05:17)
[2018-09-09 06:00] VITALS: BP 177/98
[2018-09-09 06:36] LABS: HEMATOCRIT 43.1 % (36.0-47.0); HEMOGLOBIN 12.2 g/dl (12.0-15.5); MEAN CORPUSCULAR HEMOGLOBIN 22.3 pg (27.0-33.0); MEAN CORPUSCULAR HGB CONC 28.3 g/dl (32.0-36.5); MEAN CORPUSCULAR VOLUME 78.9 fl (80.0-96.0); PLATELET COUNT, AUTOMATED 210 10^3/uL (150-450); RED BLOOD COUNT 5.46 10^6/uL (4.00-5.40); WHITE BLOOD COUNT 10.3 10^3/uL (4.0-10.0)
[2018-09-09 07:01] LABS: CALCIUM LEVEL 8.4 MG/DL (8.5-10.1); CREATININE FOR GFR 1.06 MG/DL (0.55-1.30); GLOMERULAR FILTRATION RATE 57.1 (>51); POTASSIUM SERUM 3.6 MEQ/L (3.5-5.1)
[2018-09-09] MEDS: HumaLOG INSULIN (NovoLOG) PER UNIT SC SCH ×6 (07:30→17:05)
[2018-09-09 07:38] LABS: INR 2.33
[2018-09-09] MEDS: FAMOTIDINE 20 MG TAB PO SCH ×2 (09:35→20:52)
[2018-09-09] MEDS: LACTOBACILLUS ACIDOPHILUS CAP (BACID) PO SCH ×2 (09:36→17:12)
[2018-09-09] MEDS: ASPIRIN 81 MG ENTERIC TAB PO SCH (09:36)
[2018-09-09] MEDS: PREGABALIN 75 MG CAP(LYRICA) PO SCH ×3 (09:37→20:51)
[2018-09-09] MEDS: FUROSEMIDE 40 MG TAB PO SCH ×2 (09:37→16:03)
[2018-09-09] MEDS: CARVedilol 6.25 MG TAB PO SCH ×2 (09:38→20:52)
[2018-09-09] MEDS: PARoxetine 10MG TABLET PO SCH (09:39)
[2018-09-09 09:40] VITALS: BP 130/66
[2018-09-09] MEDS: LEVEMIR (INSULIN DETEMIR) 1 UNITS/0.01ML SC SCH ×2 (09:40→20:52)
[2018-09-09 14:00] VITALS: BP 143/66
[2018-09-09] MEDS ORDERED: FIRV50SO PO (17:11)
--- NOTE | 2018-09-09 17:20 | IPNPDOC ---
Date Seen The patient was seen on 09/09/18. Progress Note SUBJECTIVE: Patient tells me she is feeling better today, she is still having diarrhea but is happening less frequently it is not begun to form as of yet and she is still incontinent of stool when coughing OBJECTIVE PHYSICAL EXAMINATION: VITAL SIGNS: Please see below. GENERAL: Obese disheveled female sitting up eating a large breakfast she appears comfortable HEENT: Cranial nerves II through XII grossly intact she has hirsutism CARDIOVASCULAR: S1-S2 regular. RESPIRATORY: Clear to auscultation. ABDOMINAL: Grossly obese bowel sounds present abdomen soft and nontender EXTREMITIES: No clubbing cyanosis or edema LABORATORY DATA, IMAGING STUDIES, MICROBIOLOGY: Please see below. DVT prophylaxis ordered?: Teds and sequentials ASSESSMENT AND PLAN: This is a 58-year-old female with C. difficile colitis. PROBLEMS: 1. C. difficile colitis: Today the first day the patient's symptoms appear to be improving I will send a prescription for by mouth vancomycin to her pharmacy and request a PFS consult for prior authorization. I suspect if her diarrhea continues to improve and she has some formed stool tomorrow she may be able to go home on this medication by mouth 2. Influenza: She is at least 1 week into her course her, cough is minimal respiratory status is at his baseline given that the Tamiflu may worsen her diarrhea at this time I'll forego treating her I suspect she is near the end of her disease process. I did reassure her that her cough should go back to her baseline in the coming weeks she gets over the viral infection. There was some concern that she was wheezy upon her presentation and she did receive some Solu- Medrol which I have since discontinued she is comfortable on room air at her baseline respiratory status 3. Diabetes: She requires high doses of insulin she was hypoglycemic once again this morning I will titrate this down her insulin again today. The patient has neuropathy and is also on Lyrica 4. Coronary artery disease: Continue statin and beta jordana she is anticoagulated with Coumadin as well as aspirin 5. Dyslipidemia: Continue statin 6. Atrial fibrillation: On Coumadin rate controlled with Coreg as well 7. Rheumatic heart disease with mechanical mitral valve: On Coumadin her goal INR is 2.5-3.5 8. Peripheral vascular disease: She is on Coumadin and statin as well as aspirin 9. COPD: She is at her baseline respiratory status as outlined above 10. Congestive heart failure with diastolic dysfunction: Appears be fairly eu volemic continue with Lasix, carvedilol 11. 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 Mood disorder: Continue with Paxil 13. Insomnia: Continue with Ambien daily at bedtime when necessary 14. Gastroesophageal reflux disease: Continue with Pepcid 15. Hypothyroidism: Continue Synthroid DISPOSITION: Pending improvement in diarrhea. Possibly home in the next 24-48 hours VS, I&O, 24H, Fishbone Vital Signs/I&O Vital Signs Date Time Temp Pulse Resp B/P (MAP) Pulse Ox O2 Delivery O2 Flow Rate FiO2 09/09/18 14:00 98.2 86 17 143/66 (91) 97 09/06/18 23:29 Room Air I&O- Last 24 Hours up to 6 AM 09/09/18 06:00 Intake Total 2660 ml Output Total 200 ml Balance 2460 ml Laboratory Data 24H LABS Laboratory Tests 2 09/08/18 19:54: Bedside Glucose (Misc Panel) 100 09/09/18 05:20: Bedside Glucose (Misc Panel) 65L 09/09/18 05:49: Nucleated Red Blood Cells % (auto) 0.0, Anion Gap 9, Glomerular Filtration Rate 57.1, Blood Urea Nitrogen 36H, Creatinine 1.06, Sodium Level 140, Potassium Level 3.6, Chloride Level 103, Carbon Dioxide Level 28, Calcium Level 8.4L 09/09/18 06:34: Prothrombin Time 26.0H, Prothromb Time International Ratio 2.33 09/09/18 07:35: Bedside Glucose (Misc Panel) 62L 09/09/18 08:08: Bedside Glucose (Misc Panel) 88 09/09/18 09:29: Bedside Glucose (Misc Panel) 145H 09/09/18 11:31: Bedside Glucose (Misc Panel) 101 09/09/18 16:29: Bedside Glucose (Misc Panel) 97 CBC/BMP Laboratory Tests 09/09/18 05:49 Red Blood Count 5.46 H, Mean Corpuscular Volume 78.9 L, Mean Corpuscular Hemoglobin 22.3 L, Mean Corpuscular Hemoglobin Concent 28.3 L, Red Cell Distribution Width 22.4 H, Calcium Level 8.4 L Microbiology Microbiology 09/07/18 Gastrointestinal Tract Panel (PCR) - Final, Complete Clostridium Difficile A/B ANTOLIN GODINEZ MD Sep 09, 2018 17:20
[2018-09-09] MEDS: ATORVASTATIN 20 MG TAB PO SCH (20:51)
[2018-09-09] MEDS: zolPIDEM TARTRATE 5 MG TAB PO SCH (20:51)
[2018-09-09] MEDS: guaiFENesin ER 600 MG TAB PO SCH (20:51)
[2018-09-09 22:00] VITALS: BP 167/96
[2018-09-10] MEDS: IPRATROPIUM 0.5MG/ALBUTEROL 2.5MG INH SOL UD 3ML (DUONEB)(J7620) NEB SCH ×4 (00:31→19:42)
[2018-09-10] MEDS: VANCOMYCIN ORAL SOL 250MG/5ML ORAL SYRINGE PO SCH ×4 (00:59→18:08)
[2018-09-10 06:00] VITALS: BP 132/80
[2018-09-10] MEDS: LEVOTHYROXINE 137MCG TABLET (0.137MG) PO SCH (06:43)
[2018-09-10 07:12] LABS: HEMATOCRIT 43.3 % (36.0-47.0); HEMOGLOBIN 12.1 g/dl (12.0-15.5); MEAN CORPUSCULAR HEMOGLOBIN 22.2 pg (27.0-33.0); MEAN CORPUSCULAR HGB CONC 27.9 g/dl (32.0-36.5); MEAN CORPUSCULAR VOLUME 79.4 fl (80.0-96.0); PLATELET COUNT, AUTOMATED 182 10^3/uL (150-450); RED BLOOD COUNT 5.45 10^6/uL (4.00-5.40); WHITE BLOOD COUNT 7.7 10^3/uL (4.0-10.0)
[2018-09-10] MEDS: HumaLOG INSULIN (NovoLOG) PER UNIT SC SCH ×3 (07:30→17:30)
[2018-09-10 07:36] LABS: BLOOD UREA NITROGEN 31 MG/DL (7-18); CALCIUM LEVEL 8.1 MG/DL (8.5-10.1); CARBON DIOXIDE LEVEL 29 MEQ/L (21-32); CHLORIDE LEVEL 104 MEQ/L (98-107); CREATININE FOR GFR 0.86 MG/DL (0.55-1.30); GLOMERULAR FILTRATION RATE > 60.0 (>51); GLUCOSE, FASTING 78 MG/DL (70-100); POTASSIUM SERUM 3.7 MEQ/L (3.5-5.1); SODIUM LEVEL 141 MEQ/L (136-145)
[2018-09-10] MEDS: PARoxetine 10MG TABLET PO SCH (08:15)
[2018-09-10] MEDS: LACTOBACILLUS ACIDOPHILUS CAP (BACID) PO SCH ×2 (08:15→18:07)
[2018-09-10] MEDS: CARVedilol 6.25 MG TAB PO SCH ×2 (08:15→21:55)
[2018-09-10] MEDS: PREGABALIN 75 MG CAP(LYRICA) PO SCH ×3 (08:15→21:53)
[2018-09-10] MEDS: guaiFENesin ER 600 MG TAB PO SCH ×2 (08:15→21:53)
[2018-09-10] MEDS: FAMOTIDINE 20 MG TAB PO SCH ×2 (08:15→21:53)
[2018-09-10] MEDS: FUROSEMIDE 40 MG TAB PO SCH ×3 (08:15→18:08)
[2018-09-10] MEDS: ASPIRIN 81 MG ENTERIC TAB PO SCH (08:15)
[2018-09-10] MEDS: LEVEMIR (INSULIN DETEMIR) 1 UNITS/0.01ML SC SCH ×2 (09:29→21:54)
[2018-09-10 14:00] VITALS: BP 136/78
--- NOTE | 2018-09-10 18:13 | IPNPDOC ---
Text Note Date of Service The patient was seen on 09/10/18. NOTE Subjective: Patient was seen and examined at the bedside. , Currently patient notes that her breathing is doing slightly better. She still notes a significant cough, however, it's been nonproductive. She denies any abdominal pain, nausea, vomiting or constipation. She still expresses diarrhea that has not yet subsided. She denies any discomfort with urination. Objective: Vitals (See below) General: Lying in bed, no acute distress, comfortable, AAOx3 HEENT: NC, AT, + Hirsutism CVS: RRR, +S1S2 Lungs: Fair air entry b/l, -w/r/r Abdomen: Soft, ND, NT, morbid obesity Extremities: - Edema, - Calf tenderness Assessment and plan: C. diff colitis - Patient is still experiencing diarrhea - No abdominal tenderness noted - GI panel 09/07: Clostridium difficile A/B - c/w Vancomycin PO (Day #4) - If patient fails to have resolution of diarrhea within the next 24-48 hours, will consider gastroenterology/infectious disease consultation Influenza - Clinically patient notes that she is not experiencing any significant shortness of breath. She is still experiencing a nonproductive cough - Saturating well on room air - Physical exam does not reveal any adventitious lung sounds - s/p Solumedrol DM2 with episodes of hypoglycemia - c/w ISS and Levemir Neuropathy - c/w Pregabalin CAD - c/w Atorvastatin, Carvedilol and ASA DLP - c/w Atorvastatin A. fib - c/w rate control with Carvedilol - c/w full anticoagulation with Coumadin Rheaumatic heart disease with Mechanical MV - INR target of 2.5-3.5 - INR today is pending - c/w Coumadin PVD - c/w Coumadin, Atorvastatin, and ASA COPD - No evidence of exacerbation - Continue with inhaled therapy is ordered Compensated diastolic CHF - Appears to be euvolemic - Continue with furosemide and carvedilol 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 & Chronic wounds Mood disorder - c/w Paroxetine Insomnia - c/w Ambien Hypothyroidism - c/w Levothyroxine GI prophylaxis - c/w Famotidine DVT prophylaxis - c/w full anticoagulation with Coumadin DISPOSITION: - Pending improvement in diarrhea. Possibly home in the next 24-48 hours VS,Fishbone, I+O VS, Fishbone, I+O Laboratory Tests 09/10/18 06:58 Red Blood Count 5.45 H, Mean Corpuscular Volume 79.4 L, Mean Corpuscular Hemoglobin 22.2 L, Mean Corpuscular Hemoglobin Concent 27.9 L, Red Cell Distribution Width 22.2 H, Calcium Level 8.1 L Vital Signs Date Time Temp Pulse Resp B/P (MAP) Pulse Ox O2 Delivery O2 Flow Rate FiO2 09/10/18 08:15 93 132/80 09/10/18 06:00 98.3 20 94 09/06/18 23:29 Room Air I&O- Last 24 Hours up to 6 AM 09/10/18 06:00 Intake Total 2856 ml Output Total 250 ml Balance 2606 ml AUDIE MCKEON MD Sep 10, 2018 18:13
[2018-09-10 18:50] LABS: INR 1.4; PROTHROMBIN TIME 17.4 SECONDS (12.1-14.4)
[2018-09-10] MEDS: zolPIDEM TARTRATE 5 MG TAB PO SCH (21:53)
[2018-09-10] MEDS: ATORVASTATIN 20 MG TAB PO SCH (21:53)
[2018-09-10] MEDS: WARFARIN SOD 5 MG TAB PO SCH (21:53)
[2018-09-10 22:00] VITALS: BP 152/87
[2018-09-11] MEDS: IPRATROPIUM 0.5MG/ALBUTEROL 2.5MG INH SOL UD 3ML (DUONEB)(J7620) NEB SCH ×4 (01:00→19:53)
[2018-09-11] MEDS: guaiFENesin DM LIQ 10ML UD PO PRN ×3 (01:00→18:32)
[2018-09-11] MEDS: VANCOMYCIN ORAL SOL 250MG/5ML ORAL SYRINGE PO SCH ×5 (01:00→23:07)
[2018-09-11 06:00] VITALS: BP 145/83
[2018-09-11] MEDS: LEVOTHYROXINE 137MCG TABLET (0.137MG) PO SCH (06:30)
[2018-09-11] MEDS: FUROSEMIDE 40 MG TAB PO SCH ×3 (06:30→17:20)
[2018-09-11 07:02] LABS: HEMATOCRIT 42.1 % (36.0-47.0); HEMOGLOBIN 11.7 g/dl (12.0-15.5); MEAN CORPUSCULAR HGB CONC 27.8 g/dl (32.0-36.5); MEAN CORPUSCULAR VOLUME 79.3 fl (80.0-96.0); PLATELET COUNT, AUTOMATED 203 10^3/uL (150-450); RED BLOOD COUNT 5.31 10^6/uL (4.00-5.40); WHITE BLOOD COUNT 9.5 10^3/uL (4.0-10.0)
[2018-09-11 07:14] LABS: INR 1.38; PROTHROMBIN TIME 17.2 SECONDS (12.1-14.4)
[2018-09-11 07:20] LABS: BLOOD UREA NITROGEN 27 MG/DL (7-18); CALCIUM LEVEL 8.3 MG/DL (8.5-10.1); CARBON DIOXIDE LEVEL 32 MEQ/L (21-32); CHLORIDE LEVEL 104 MEQ/L (98-107); CREATININE FOR GFR 0.96 MG/DL (0.55-1.30); GLOMERULAR FILTRATION RATE > 60.0 (>51); GLUCOSE, FASTING 193 MG/DL (70-100); POTASSIUM SERUM 3.7 MEQ/L (3.5-5.1); SODIUM LEVEL 142 MEQ/L (136-145)
[2018-09-11] MEDS: PARoxetine 10MG TABLET PO SCH (08:43)
[2018-09-11] MEDS: FAMOTIDINE 20 MG TAB PO SCH ×2 (08:43→23:05)
[2018-09-11] MEDS: PREGABALIN 75 MG CAP(LYRICA) PO SCH ×3 (08:43→23:05)
[2018-09-11] MEDS: ASPIRIN 81 MG ENTERIC TAB PO SCH (08:43)
[2018-09-11] MEDS: guaiFENesin ER 600 MG TAB PO SCH ×2 (08:44→23:05)
[2018-09-11] MEDS: LACTOBACILLUS ACIDOPHILUS CAP (BACID) PO SCH ×2 (08:44→17:20)
[2018-09-11] MEDS: CARVedilol 6.25 MG TAB PO SCH ×2 (08:45→23:06)
[2018-09-11] MEDS: LEVEMIR (INSULIN DETEMIR) 1 UNITS/0.01ML SC SCH ×2 (08:46→23:06)
[2018-09-11] MEDS: HumaLOG INSULIN (NovoLOG) PER UNIT SC SCH ×3 (08:46→17:22)
--- NOTE | 2018-09-11 13:45 | IPNPDOC ---
Text Note Date of Service The patient was seen on 09/11/18. NOTE Subjective: Patient was seen and examined at the bedside. Patient continues 6. Diarrhea. She denies any abdominal pain, nausea or vomiting. Denies chest pain, shortness of breath, palpitations. No dysuria. Objective: Vitals (See below) General: Lying in bed, no acute distress, comfortable, AAOx3 HEENT: NC, AT, + Hirsutism CVS: RRR, +S1S2 Lungs: Fair air entry b/l, auscultation without wheezing, rales or rhonchi Abdomen: Soft, ND, NT, morbid obesity Extremities: No evidence of edema, - Calf tenderness Assessment and plan: C. diff colitis - Patient is still experiencing diarrhea; never has noted that there is been a reduction - No abdominal tenderness noted - GI panel 09/07: Clostridium difficile A/B - c/w Vancomycin PO (Day #5) - Will wait 24 hours additional with current antibiotics; will transition to different antibiotics thereafter Influenza - Clinically patient notes that she is not experiencing any significant shortness of breath. She is still experiencing a nonproductive cough - Saturating well on room air - Physical exam does not reveal any adventitious lung sounds - s/p Solumedrol DM2 with episodes of hypoglycemia - c/w ISS and Levemir Neuropathy - c/w Pregabalin CAD - c/w Atorvastatin, Carvedilol and ASA DLP - c/w Atorvastatin A. fib - c/w rate control with Carvedilol - c/w full anticoagulation with Coumadin Rheumatic heart disease with Mechanical MV - INR target of 2.5-3.5 - INR subtherapeutic - c/w Coumadin PVD - c/w Coumadin, Atorvastatin, and ASA COPD - No evidence of exacerbation - Continue with inhaled therapy is ordered Compensated diastolic CHF - Appears to be euvolemic - Continue with furosemide and carvedilol 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 & Chronic wounds Mood disorder - c/w Paroxetine Insomnia - c/w Ambien Hypothyroidism - c/w Levothyroxine GI prophylaxis - c/w Famotidine DVT prophylaxis - c/w full anticoagulation with Coumadin Disposition: - Awaiting resolution of diarrhea VS,Fishbone, I+O VS, Fishbone, I+O Laboratory Tests 09/11/18 06:44 Red Blood Count 5.31, Mean Corpuscular Volume 79.3 L, Mean Corpuscular Hemoglobin 22.0 L, Mean Corpuscular Hemoglobin Concent 27.8 L, Red Cell Distribution Width 21.9 H, Calcium Level 8.3 L Vital Signs Date Time Temp Pulse Resp B/P (MAP) Pulse Ox O2 Delivery O2 Flow Rate FiO2 09/11/18 08:45 101 144/74 09/11/18 06:00 97.9 20 98 09/06/18 23:29 Room Air I&O- Last 24 Hours up to 6 AM 09/11/18 06:00 Intake Total 3000 ml Balance 3000 ml AUDIE MCKEON MD Sep 11, 2018 13:45
[2018-09-11 14:00] VITALS: BP 144/73
[2018-09-11] MEDS: IPRATROPIUM 0.5MG/ALBUTEROL 2.5MG INH SOL UD 3ML (DUONEB)(J7620) NEB PRN ×2 (16:15→23:37)
[2018-09-11] MEDS: WARFARIN SOD 5 MG TAB PO SCH (17:21)
[2018-09-11 22:00] VITALS: BP 138/79
[2018-09-11] MEDS: ATORVASTATIN 20 MG TAB PO SCH (23:05)
[2018-09-11] MEDS: zolPIDEM TARTRATE 5 MG TAB PO SCH (23:06)
[2018-09-12] MEDS: guaiFENesin DM LIQ 10ML UD PO PRN ×4 (00:56→22:03)
[2018-09-12] MEDS: IPRATROPIUM 0.5MG/ALBUTEROL 2.5MG INH SOL UD 3ML (DUONEB)(J7620) NEB SCH ×4 (02:01→20:09)
[2018-09-12] MEDS: IPRATROPIUM 0.5MG/ALBUTEROL 2.5MG INH SOL UD 3ML (DUONEB)(J7620) NEB PRN ×2 (05:59→16:12)
[2018-09-12] MEDS: VANCOMYCIN ORAL SOL 250MG/5ML ORAL SYRINGE PO SCH ×3 (05:59→17:45)
[2018-09-12] MEDS: LEVOTHYROXINE 137MCG TABLET (0.137MG) PO SCH (05:59)
[2018-09-12 06:00] VITALS: BP 141/75
[2018-09-12] MEDS: FUROSEMIDE 40 MG TAB PO SCH ×3 (06:00→17:44)
[2018-09-12 06:53] LABS: HEMATOCRIT 37.7 % (36.0-47.0); HEMOGLOBIN 10.6 g/dl (12.0-15.5); MEAN CORPUSCULAR HEMOGLOBIN 22.1 pg (27.0-33.0); MEAN CORPUSCULAR HGB CONC 28.1 g/dl (32.0-36.5); MEAN CORPUSCULAR VOLUME 78.5 fl (80.0-96.0); PLATELET COUNT, AUTOMATED 181 10^3/uL (150-450); WHITE BLOOD COUNT 6.9 10^3/uL (4.0-10.0)
[2018-09-12 07:01] LABS: INR 1.75; PROTHROMBIN TIME 20.7 SECONDS (12.1-14.4)
[2018-09-12 07:19] LABS: BLOOD UREA NITROGEN 24 MG/DL (7-18); CARBON DIOXIDE LEVEL 28 MEQ/L (21-32); CHLORIDE LEVEL 105 MEQ/L (98-107); CREATININE FOR GFR 0.85 MG/DL (0.55-1.30); GLOMERULAR FILTRATION RATE > 60.0 (>51); GLUCOSE, FASTING 230 MG/DL (70-100); POTASSIUM SERUM 3.6 MEQ/L (3.5-5.1); SODIUM LEVEL 141 MEQ/L (136-145)
[2018-09-12] MEDS: LACTOBACILLUS ACIDOPHILUS CAP (BACID) PO SCH ×2 (08:17→17:44)
[2018-09-12] MEDS: guaiFENesin ER 600 MG TAB PO SCH ×2 (08:17→22:02)
[2018-09-12] MEDS: FAMOTIDINE 20 MG TAB PO SCH ×2 (08:17→22:02)
[2018-09-12] MEDS: ASPIRIN 81 MG ENTERIC TAB PO SCH (08:17)
[2018-09-12] MEDS: PREGABALIN 75 MG CAP(LYRICA) PO SCH ×3 (08:18→22:01)
[2018-09-12] MEDS: CARVedilol 6.25 MG TAB PO SCH ×2 (08:18→22:03)
[2018-09-12] MEDS: PARoxetine 10MG TABLET PO SCH (08:18)
[2018-09-12] MEDS: HumaLOG INSULIN (NovoLOG) PER UNIT SC SCH ×3 (08:19→17:45)
[2018-09-12] MEDS: LEVEMIR (INSULIN DETEMIR) 1 UNITS/0.01ML SC SCH ×2 (08:19→22:04)
--- NOTE | 2018-09-12 12:48 | IPNPDOC ---
Text Note Date of Service The patient was seen on 09/12/18. NOTE Subjective: Patient was seen and examined at the bedside. Currently, patient does not experience any chest pain, shortness of breath, palpitations. . She denies na usea, vomiting, abdominal pain. Patient has reported that she still experiencing diarrhea. Patient has had several bowel movements today and is indicated that her bowel movements have become closer deformed, however, has not solidified yet. Patient denies any discomfort with urination. Objective: Vitals (See below) General: Lying in bed, no acute distress, comfortable, AAOx3 HEENT: NC, AT, + Hirsutism CVS: RRR, +S1S2 Lungs: Fair air entry b/l, there does not appear to be any evidence of wheezing, rhonchi or rales on auscultation Abdomen: Abdomen is soft, nondistended, without tenderness. Abdomen is morbidly obese Extremities: No evidence of lower extremity edema, - Calf tenderness Assessment and plan: C. diff colitis - Although patient continues to experience diarrhea, she has noted that the frequency has subsided and that the consistency has been approaching more solid - No abdominal tenderness noted - GI panel 09/07: Clostridium difficile A/B - c/w Vancomycin PO (Day #6); dose has been increased from 125 to 250 mg today Influenza - Clinically patient notes that she is not experiencing any significant shortness of breath. She is still experiencing a nonproductive cough - Saturating well on room air - Physical exam does not reveal any adventitious lung sounds - s/p Solumedrol DM2 with episodes of hypoglycemia - c/w ISS and Levemir Neuropathy - c/w Pregabalin CAD - c/w Atorvastatin, Carvedilol and ASA DLP - c/w Atorvastatin A. fib - c/w rate control with Carvedilol - c/w full anticoagulation with Coumadin Rheumatic heart disease with Mechanical MV - INR target of 2.5-3.5 - INR subtherapeutic - c/w Coumadin PVD - c/w Coumadin, Atorvastatin, and ASA COPD - No evidence of exacerbation - Continue with inhaled therapy is ordered Compensated diastolic CHF - Appears to be euvolemic - Continue with furosemide and carvedilol 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 & Chronic wounds Mood disorder - c/w Paroxetine Insomnia - c/w Ambien Hypothyroidism - c/w Levothyroxine GI prophylaxis - c/w Famotidine DVT prophylaxis - c/w full anticoagulation with Coumadin Disposition: - Diarrhea appears to be subsiding; however, will need to determine whether the Fidaxomicin might be required - Has cleared physical therapy VS,Fishbone, I+O VS, Fishbone, I+O Laboratory Tests 09/12/18 06:41 Red Blood Count 4.80, Mean Corpuscular Volume 78.5 L, Mean Corpuscular Hemoglobin 22.1 L, Mean Corpuscular Hemoglobin Concent 28.1 L, Red Cell Di stribution Width 21.6 H, Calcium Level 8.0 L Vital Signs Date Time Temp Pulse Resp B/P (MAP) Pulse Ox O2 Delivery O2 Flow Rate FiO2 09/12/18 08:18 97 141/75 09/12/18 06:00 98.0 19 99 09/06/18 23:29 Room Air I&O- Last 24 Hours up to 6 AM 09/12/18 06:00 Intake Total 3720 ml Balance 3720 ml AUDIE MCKEON MD Sep 12, 2018 12:48
[2018-09-12 14:00] VITALS: BP 138/70
[2018-09-12] MEDS ORDERED: WARFARIN SOD 5 MG TAB PO SCH (17:00)
[2018-09-12 22:00] VITALS: BP 131/76
[2018-09-12] MEDS: zolPIDEM TARTRATE 5 MG TAB PO SCH (22:03)
[2018-09-12] MEDS: ATORVASTATIN 20 MG TAB PO SCH (22:04)
[2018-09-13] MEDS: VANCOMYCIN ORAL SOL 250MG/5ML ORAL SYRINGE PO SCH ×5 (00:09→23:40)
[2018-09-13] MEDS: IPRATROPIUM 0.5MG/ALBUTEROL 2.5MG INH SOL UD 3ML (DUONEB)(J7620) NEB PRN ×4 (00:09→23:13)
[2018-09-13] MEDS: IPRATROPIUM 0.5MG/ALBUTEROL 2.5MG INH SOL UD 3ML (DUONEB)(J7620) NEB SCH ×4 (02:02→20:00)
[2018-09-13] MEDS: guaiFENesin DM LIQ 10ML UD PO PRN ×4 (04:57→23:39)
[2018-09-13] MEDS: LEVOTHYROXINE 137MCG TABLET (0.137MG) PO SCH (05:33)
[2018-09-13] MEDS: FUROSEMIDE 40 MG TAB PO SCH (05:33)
[2018-09-13 06:00] VITALS: BP 140/72
[2018-09-13 06:10] LABS: HEMATOCRIT 37.6 % (36.0-47.0); HEMOGLOBIN 10.5 g/dl (12.0-15.5); MEAN CORPUSCULAR HGB CONC 27.9 g/dl (32.0-36.5); MEAN CORPUSCULAR VOLUME 78.7 fl (80.0-96.0); PLATELET COUNT, AUTOMATED 207 10^3/uL (150-450); RED BLOOD COUNT 4.78 10^6/uL (4.00-5.40); WHITE BLOOD COUNT 6.5 10^3/uL (4.0-10.0)
[2018-09-13 06:19] LABS: INR 1.9; PROTHROMBIN TIME 22.1 SECONDS (12.1-14.4)
[2018-09-13 06:34] LABS: BLOOD UREA NITROGEN 28 MG/DL (7-18); CALCIUM LEVEL 8.5 MG/DL (8.5-10.1); CARBON DIOXIDE LEVEL 29 MEQ/L (21-32); CHLORIDE LEVEL 103 MEQ/L (98-107); CREATININE FOR GFR 0.97 MG/DL (0.55-1.30); GLOMERULAR FILTRATION RATE > 60.0 (>51); GLUCOSE, FASTING 305 MG/DL (70-100); POTASSIUM SERUM 3.7 MEQ/L (3.5-5.1); SODIUM LEVEL 140 MEQ/L (136-145)
[2018-09-13] MEDS: HumaLOG INSULIN (NovoLOG) PER UNIT SC SCH ×3 (08:06→17:10)
[2018-09-13] MEDS: PARoxetine 10MG TABLET PO SCH (08:07)
[2018-09-13] MEDS: guaiFENesin ER 600 MG TAB PO SCH ×2 (08:07→20:50)
[2018-09-13] MEDS: FAMOTIDINE 20 MG TAB PO SCH ×2 (08:07→20:50)
[2018-09-13] MEDS: ASPIRIN 81 MG ENTERIC TAB PO SCH (08:07)
[2018-09-13] MEDS: LACTOBACILLUS ACIDOPHILUS CAP (BACID) PO SCH ×2 (08:07→17:10)
[2018-09-13] MEDS: LEVEMIR (INSULIN DETEMIR) 1 UNITS/0.01ML SC SCH ×2 (08:07→20:51)
[2018-09-13] MEDS: PREGABALIN 75 MG CAP(LYRICA) PO SCH ×3 (08:08→20:50)
[2018-09-13] MEDS: CARVedilol 6.25 MG TAB PO SCH ×2 (08:12→20:51)
[2018-09-13 14:00] VITALS: BP 125/70
--- NOTE | 2018-09-13 15:08 | IPNPDOC ---
Text Note Date of Service The patient was seen on 09/13/18. NOTE Subjective: Patient was seen and examined at the bedside. Currently, patient reports that her diarrhea is doing significantly better. She still complains of difficulty breathing Objective: Vitals (See below) General: Lying in bed, no acute distress, comfortable, AAOx3 HEENT: NC, AT, + Hirsutism CVS: RRR, +S1S2 Lungs: Fair air entry b/l, there appears to be very faint wheezing at the end of expiration. No evidence of rhonchi, rales Abdomen: Abdomen remains soft, without any distention or tenderness Extremities: There still appears to be 1+/trace edema, - Calf tenderness Assessment and plan: C. diff colitis - Patient has noted significant improvement in her diarrhea - No abdominal tenderness noted - GI panel 09/07: Clostridium difficile A/B - c/w Vancomycin 250 PO (Day #7); Influenza - Clinically patient notes that she is not experiencing any significant shortness of breath. She is still experiencing a nonproductive cough - Saturating well on room air - Physical exam does not reveal any adventitious lung sounds - s/p Solumedrol DM2 with episodes of hypoglycemia - c/w ISS and Levemir Neuropathy - c/w Pregabalin CAD - c/w Atorvastatin, Carvedilol and ASA DLP - c/w Atorvastatin A. fib - c/w rate control with Carvedilol - INR target of 2-3; remains subtherapeutic - c/w full anticoagulation with Coumadin Rheumatic heart disease with Mechanical MV - INR target of 2.5-3.5 - INR subtherapeutic - c/w Coumadin; will provide one dose of 20 g today and continue with 15 thereafter PVD - c/w Coumadin, Atorvastatin, and ASA COPD - No evidence of exacerbation - Continue with inhaled therapy is ordered Decompensated diastolic CHF - Patient had traces of edema over the last several days dose of furosemide was increased orally - This is failed to resolve the problem; will provide patient with IV Lasix for 24 hours - c/w furosemide IV with net-negative protocol 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 & Chronic wounds Mood disorder - c/w Paroxetine Insomnia - c/w Ambien Hypothyroidism - c/w Levothyroxine GI prophylaxis - c/w Famotidine DVT prophylaxis - c/w full anticoagulation with Coumadin Disposition: - Has cleared physical therapy VS,Fishbone, I+O VS, Fishbone, I+O Laboratory Tests 09/13/18 05:56 Red Blood Count 4.78, Mean Corpuscular Volume 78.7 L, Mean Corpuscular Hemoglobin 22.0 L, Mean Corpuscular Hemoglobin Concent 27.9 L, Red Cell Distribution Width 21.5 H, Calcium Level 8.5 Vital Signs Date Time Temp Pulse Resp B/P (MAP) Pulse Ox O2 Delivery O2 Flow Rate FiO2 09/13/18 14:00 97.1 110 18 125/70 (88) 91 I&O- Last 24 Hours up to 6 AM 09/13/18 06:00 Intake Total 2520 ml Output Total 1500 ml Balance 1020 ml AUDIE MCKEON MD Sep 13, 2018 15:08
[2018-09-13] MEDS: FUROSEMIDE 40 MG/4 ML VIAL (J1940) IV SCH ×2 (16:25→23:40)
[2018-09-13] MEDS ORDERED: WARFARIN SOD 5 MG TAB PO SCH (17:00)
[2018-09-13] MEDS: ADVAIR HFA 115/21MCG INHALER INH SCH (20:13)
[2018-09-13] MEDS: zolPIDEM TARTRATE 5 MG TAB PO SCH (20:50)
[2018-09-13] MEDS: ATORVASTATIN 20 MG TAB PO SCH (20:50)
[2018-09-13 22:00] VITALS: BP 138/73
[2018-09-14] MEDS: IPRATROPIUM 0.5MG/ALBUTEROL 2.5MG INH SOL UD 3ML (DUONEB)(J7620) NEB SCH ×4 (03:19→19:39)
[2018-09-14] MEDS: LEVOTHYROXINE 137MCG TABLET (0.137MG) PO SCH (05:39)
[2018-09-14] MEDS: VANCOMYCIN ORAL SOL 250MG/5ML ORAL SYRINGE PO SCH (05:39)
[2018-09-14 06:00] VITALS: BP 130/79
[2018-09-14 07:01] LABS: HEMATOCRIT 35.5 % (36.0-47.0); MEAN CORPUSCULAR HEMOGLOBIN 21.9 pg (27.0-33.0); MEAN CORPUSCULAR HGB CONC 28.2 g/dl (32.0-36.5); MEAN CORPUSCULAR VOLUME 77.7 fl (80.0-96.0); PLATELET COUNT, AUTOMATED 212 10^3/uL (150-450); RED BLOOD COUNT 4.57 10^6/uL (4.00-5.40); WHITE BLOOD COUNT 6.3 10^3/uL (4.0-10.0)
[2018-09-14] MEDS: ADVAIR HFA 115/21MCG INHALER INH SCH ×2 (07:15→21:05)
[2018-09-14 07:16] LABS: INR 2.71; PROTHROMBIN TIME 29.3 SECONDS (12.1-14.4)
[2018-09-14 07:19] LABS: BLOOD UREA NITROGEN 30 MG/DL (7-18); CALCIUM LEVEL 8.2 MG/DL (8.5-10.1); CARBON DIOXIDE LEVEL 29 MEQ/L (21-32); CHLORIDE LEVEL 104 MEQ/L (98-107); CREATININE FOR GFR 0.98 MG/DL (0.55-1.30); GLOMERULAR FILTRATION RATE > 60.0 (>51); GLUCOSE, FASTING 232 MG/DL (70-100); POTASSIUM SERUM 3.8 MEQ/L (3.5-5.1); SODIUM LEVEL 139 MEQ/L (136-145)
[2018-09-14] MEDS: HumaLOG INSULIN (NovoLOG) PER UNIT SC SCH ×3 (08:07→17:42)
[2018-09-14] MEDS: ASPIRIN 81 MG ENTERIC TAB PO SCH (08:09)
[2018-09-14] MEDS: guaiFENesin ER 600 MG TAB PO SCH ×2 (08:09→21:08)
[2018-09-14] MEDS: FAMOTIDINE 20 MG TAB PO SCH ×2 (08:09→21:08)
[2018-09-14] MEDS: FUROSEMIDE 40 MG/4 ML VIAL (J1940) IV SCH ×3 (08:09→23:53)
[2018-09-14] MEDS: PREGABALIN 75 MG CAP(LYRICA) PO SCH ×3 (08:09→21:08)
[2018-09-14] MEDS: LACTOBACILLUS ACIDOPHILUS CAP (BACID) PO SCH ×2 (08:09→17:42)
[2018-09-14] MEDS: CARVedilol 6.25 MG TAB PO SCH ×2 (08:10→21:09)
[2018-09-14] MEDS: PARoxetine 10MG TABLET PO SCH (08:10)
[2018-09-14] MEDS: LEVEMIR (INSULIN DETEMIR) 1 UNITS/0.01ML SC SCH ×2 (08:11→21:07)
[2018-09-14] MEDS: guaiFENesin DM LIQ 10ML UD PO PRN ×2 (09:20→21:08)
[2018-09-14] MEDS: FIDAXOMICIN 200 MG TAB (DIFICID) PO SCH ×2 (11:53→21:07)
[2018-09-14 14:00] VITALS: BP 135/78
--- NOTE | 2018-09-14 14:09 | IPNPDOC ---
Text Note Date of Service The patient was seen on 09/14/18. NOTE Subjective: Patient was seen and examined at the bedside. Patient has noted that her diarrhea continues to persist. She denies chest pain, shortness of breath, pal pitations. Denies nausea, vomiting. Denies any abdominal pain. Notes that her lower extremity swelling has slightly improved however still present. Objective: Vitals (See below) General: Lying in bed, no acute distress, comfortable, AAOx3 HEENT: NC, AT, + Hirsutism CVS: RRR, +S1S2 Lungs: Fair air entry b/l, there does not appear to be any evidence of wheezing, rhonchi or rales Abdomen: Abdomen is soft without distention or tenderness Extremities: there is trace LE edema, - Calf tenderness Assessment and plan: C. diff colitis - This morning patient has noted diarrhea and was unable to hold it until she has a bathroom - No abdominal tenderness noted - GI panel 09/07: Clostridium difficile A/B - Will start Fidaxomicin (Day #1); Will DC Vancomycin 250 PO (Day #8); Influenza - Clinically patient notes that she is not experiencing any significant shortness of breath. She is still experiencing a nonproductive cough - Saturating well on room air - Out of the period to receive Tamiflu - s/p Solumedrol DM2 with episodes of hypoglycemia - c/w ISS and Levemir Neuropathy - c/w Pregabalin CAD - c/w Atorvastatin, Carvedilol and ASA DLP - c/w Atorvastatin A. fib - c/w rate control with Carvedilol - INR target of 2-3; remains therapeutic - c/w full anticoagulation with Coumadin Rheumatic heart disease with Mechanical MV - INR target of 2.5-3.5 - INR therapeutic - c/w Coumadin; will provide one dose of 20 g today and continue with 15 thereafter PVD - c/w Coumadin, Atorvastatin, and ASA COPD - No evidence of exacerbation - Continue with inhaled therapy is ordered Decompensated diastolic CHF - Patient had traces of edema over the last several days dose of furosemide was increased orally - This is failed to resolve the problem; - Cr remains stable - Will add fluid restrictions of 1700 cc - c/w furosemide IV with net-negative protocol 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 & Chronic wounds Mood disorder - c/w Paroxetine Insomnia - c/w Ambien Hypothyroidism - c/w Levothyroxine GI prophylaxis - c/w Famotidine DVT prophylaxis - c/w full anticoagulation with Coumadin Disposition: - Has cleared physical therapy - Awaiting for euvolemia VS,Fishbone, I+O VS, Fishbone, I+O Laboratory Tests 09/14/18 06:35 Red Blood Count 4.57, Mean Corpuscular Volume 77.7 L, Mean Corpuscular Hemoglobin 21.9 L, Mean Corpuscular Hemoglobin Concent 28.2 L, Red Cell Distribution Width 21.5 H, Calcium Level 8.2 L Vital Signs Date Time Temp Pulse Resp B/P (MAP) Pulse Ox O2 Delivery O2 Flow Rate FiO2 09/14/18 08:10 87 130/76 09/14/18 06:00 98.0 19 98 I&O- Last 24 Hours up to 6 AM 09/14/18 06:00 Intake Total 2760 ml Output Total 2500 ml Balance 260 ml AUDIE MCKEON MD Sep 14, 2018 14:09
[2018-09-14] MEDS: IPRATROPIUM 0.5MG/ALBUTEROL 2.5MG INH SOL UD 3ML (DUONEB)(J7620) NEB PRN (15:22)
[2018-09-14] MEDS ORDERED: WARFARIN SOD 5 MG TAB PO SCH (17:00)
[2018-09-14] MEDS ORDERED: NYSTATIN 100,000 UNITS/GM TOPICAL PWD 15 GM TOP PRN (20:15)
[2018-09-14] MEDS: ATORVASTATIN 20 MG TAB PO SCH (21:08)
[2018-09-14] MEDS: zolPIDEM TARTRATE 5 MG TAB PO SCH (21:08)
[2018-09-14 22:00] VITALS: BP 130/68
[2018-09-15] MEDS: IPRATROPIUM 0.5MG/ALBUTEROL 2.5MG INH SOL UD 3ML (DUONEB)(J7620) NEB PRN ×4 (00:46→23:12)
[2018-09-15] MEDS: IPRATROPIUM 0.5MG/ALBUTEROL 2.5MG INH SOL UD 3ML (DUONEB)(J7620) NEB SCH ×4 (00:47→19:40)
[2018-09-15] MEDS: LEVOTHYROXINE 137MCG TABLET (0.137MG) PO SCH (05:04)
[2018-09-15 06:00] VITALS: BP 128/67
[2018-09-15 06:44] LABS: HEMATOCRIT 39.3 % (36.0-47.0); HEMOGLOBIN 10.8 g/dl (12.0-15.5); MEAN CORPUSCULAR HEMOGLOBIN 21.8 pg (27.0-33.0); MEAN CORPUSCULAR HGB CONC 27.5 g/dl (32.0-36.5); MEAN CORPUSCULAR VOLUME 79.2 fl (80.0-96.0); PLATELET COUNT, AUTOMATED 246 10^3/uL (150-450); RED BLOOD COUNT 4.96 10^6/uL (4.00-5.40); WHITE BLOOD COUNT 6.8 10^3/uL (4.0-10.0)
[2018-09-15 06:51] LABS: INR 3.43; PROTHROMBIN TIME 35.4 SECONDS (12.1-14.4)
[2018-09-15 07:02] LABS: BLOOD UREA NITROGEN 33 MG/DL (7-18); CALCIUM LEVEL 8.8 MG/DL (8.5-10.1); CARBON DIOXIDE LEVEL 30 MEQ/L (21-32); CHLORIDE LEVEL 106 MEQ/L (98-107); CREATININE FOR GFR 1.01 MG/DL (0.55-1.30); GLOMERULAR FILTRATION RATE > 60.0 (>51); GLUCOSE, FASTING 140 MG/DL (70-100); POTASSIUM SERUM 3.8 MEQ/L (3.5-5.1); SODIUM LEVEL 143 MEQ/L (136-145)
[2018-09-15] MEDS: ADVAIR HFA 115/21MCG INHALER INH SCH ×3 (08:00→20:12)
[2018-09-15] MEDS: HumaLOG INSULIN (NovoLOG) PER UNIT SC SCH ×3 (08:13→17:19)
[2018-09-15] MEDS: FAMOTIDINE 20 MG TAB PO SCH ×2 (08:14→20:20)
[2018-09-15] MEDS: LEVEMIR (INSULIN DETEMIR) 1 UNITS/0.01ML SC SCH ×2 (08:14→20:20)
[2018-09-15] MEDS: LACTOBACILLUS ACIDOPHILUS CAP (BACID) PO SCH ×2 (08:15→17:20)
[2018-09-15] MEDS: PREGABALIN 75 MG CAP(LYRICA) PO SCH ×3 (08:15→20:21)
[2018-09-15] MEDS: PARoxetine 10MG TABLET PO SCH (08:15)
[2018-09-15] MEDS: FIDAXOMICIN 200 MG TAB (DIFICID) PO SCH ×2 (08:15→20:20)
[2018-09-15] MEDS: ASPIRIN 81 MG ENTERIC TAB PO SCH (08:16)
[2018-09-15] MEDS: CARVedilol 6.25 MG TAB PO SCH ×2 (08:16→20:21)
[2018-09-15] MEDS: guaiFENesin ER 600 MG TAB PO SCH ×2 (08:16→20:21)
[2018-09-15] MEDS: TORSEMIDE 20 MG TAB PO SCH ×2 (10:04→17:19)
[2018-09-15] MEDS: guaiFENesin DM LIQ 10ML UD PO PRN ×2 (10:53→20:20)
--- NOTE | 2018-09-15 13:12 | IPNPDOC ---
Text Note Date of Service The patient was seen on 09/15/18. NOTE Subjective: Patient was seen and examined at the bedside. Patient has noted that her diarrhea has resolved. Denies chest pain, shortness of breath or palpitations. Notes that her lower extremity swelling, remains persistent. Denies any nausea or vomiting. Denies abdominal pain. Objective: Vitals (See below) General: Lying in bed, no acute distress, comfortable, AAOx3 HEENT: NC, AT, + Hirsutism CVS: RRR, +S1S2 Lungs: Fair air entry b/l, no evidence of wheezing, rhonchi or rales Abdomen: Abdomen is soft without distention or tenderness Extremities: Trace LE pitting edema, - Calf tenderness Assessment and plan: C. diff colitis - This morning patient has noted diarrhea and was unable to hold it until she has a bathroom - Has failed 8 days of Vancomycin - No abdominal tenderness noted - GI panel 09/07: Clostridium difficile A/B - Will start Fidaxomicin (Day #2); Failure to improve with Vancomycin 250 PO (Day #8); Influenza - Clinically patient notes that she is not experiencing any significant s hortness of breath. She is still experiencing a nonproductive cough - Saturating well on room air - Out of the period to receive Tamiflu - s/p Solumedrol DM2 with episodes of hypoglycemia - c/w ISS and Levemir Neuropathy - c/w Pregabalin CAD - c/w Atorvastatin, Carvedilol and ASA DLP - c/w Atorvastatin A. fib - c/w rate control with Carvedilol - INR target of 2-3; remains therapeutic - c/w full anticoagulation with Coumadin Rheumatic heart disease with Mechanical MV - INR target of 2.5-3.5 - INR therapeutic - c/w Coumadin; will provide one dose of 20 g today and continue with 15 t hereafter PVD - c/w Coumadin, Atorvastatin and ASA COPD - No evidence of exacerbation - Continue with inhaled therapy is ordered Decompensated diastolic CHF - Patient had traces of edema over the last several days dose of furosemide was increased orally - This is failed to resolve the problem; - Cr remains stable - c/w fluid restrictions of 1700 cc - Will DC Furosemide IV; Will start Torsemide 40 BID 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 & Chronic wounds Mood disorder - c/w Paroxetine Insomnia - c/w Ambien Hypothyroidism - c/w Levothyroxine GI prophylaxis - c/w Famotidine DVT prophylaxis - c/w full anticoagulation with Coumadin Disposition: - Has cleared physical therapy - Awaiting for euvolemia - Anticipate discharge tomorrow VS,Trebone, I+O VS, Fishbone, I+O Laboratory Tests 09/15/18 06:25 Red Blood Count 4.96, Mean Corpuscular Volume 79.2 L, Mean Corpuscular Hemoglobin 21.8 L, Mean Corpuscular Hemoglobin Concent 27.5 L, Red Cell Distribution Width 21.7 H, Calcium Level 8.8 Vital Signs Date Time Temp Pulse Resp B/P (MAP) Pulse Ox O2 Delivery O2 Flow Rate FiO2 09/15/18 08:16 86 128/67 09/15/18 06:00 97.1 20 95 I&O- Last 24 Hours up to 6 AM 09/15/18 06:00 Intake Total 1600 ml Output Total 1500 ml Balance 100 ml AUDIE MCKEON MD Sep 15, 2018 13:12
[2018-09-15] MEDS ORDERED: DIFI200T PO (13:13)
[2018-09-15 14:00] VITALS: BP 130/68
[2018-09-15] MEDS: FUROSEMIDE 40 MG/4 ML VIAL (J1940) IV SCH (15:18)
[2018-09-15] MEDS ORDERED: WARFARIN SOD 5 MG TAB PO SCH (17:00)
[2018-09-15] MEDS: ATORVASTATIN 20 MG TAB PO SCH (20:20)
[2018-09-15] MEDS: zolPIDEM TARTRATE 5 MG TAB PO SCH (20:21)
[2018-09-15 22:00] VITALS: BP 129/72
[2018-09-16] MEDS: guaiFENesin DM LIQ 10ML UD PO PRN ×2 (02:15→08:20)
[2018-09-16] MEDS: IPRATROPIUM 0.5MG/ALBUTEROL 2.5MG INH SOL UD 3ML (DUONEB)(J7620) NEB SCH ×2 (02:54→07:22)
[2018-09-16] MEDS: LEVOTHYROXINE 137MCG TABLET (0.137MG) PO SCH (05:06)
[2018-09-16 06:00] VITALS: BP 118/75
[2018-09-16 07:02] LABS: HEMATOCRIT 36.7 % (36.0-47.0); HEMOGLOBIN 10.1 g/dl (12.0-15.5); MEAN CORPUSCULAR HEMOGLOBIN 21.7 pg (27.0-33.0); MEAN CORPUSCULAR HGB CONC 27.5 g/dl (32.0-36.5); MEAN CORPUSCULAR VOLUME 78.9 fl (80.0-96.0); PLATELET COUNT, AUTOMATED 209 10^3/uL (150-450); RED BLOOD COUNT 4.65 10^6/uL (4.00-5.40)
[2018-09-16] MEDS: ADVAIR HFA 115/21MCG INHALER INH SCH (07:23)
[2018-09-16 07:24] LABS: CALCIUM LEVEL 8.2 MG/DL (8.5-10.1); CREATININE FOR GFR 1.09 MG/DL (0.55-1.30); GLOMERULAR FILTRATION RATE 55.3 (>51); POTASSIUM SERUM 3.6 MEQ/L (3.5-5.1)
[2018-09-16] MEDS ORDERED: BASA100I SQ (08:09)
[2018-09-16] MEDS ORDERED: MUCI600T37 PO (08:09)
[2018-09-16] MEDS ORDERED: NEBUMIS2 XX (08:09)
[2018-09-16] MEDS ORDERED: TORS20TA2 PO (08:09)
[2018-09-16] MEDS ORDERED: ADVA115A INH (08:09)
[2018-09-16] MEDS ORDERED: VENTAER INH (08:09)
[2018-09-16] MEDS ORDERED: IPRA0.00 NEB (08:09)
[2018-09-16] MEDS: guaiFENesin ER 600 MG TAB PO SCH (08:18)
[2018-09-16] MEDS: LACTOBACILLUS ACIDOPHILUS CAP (BACID) PO SCH (08:18)
[2018-09-16] MEDS: HumaLOG INSULIN (NovoLOG) PER UNIT SC SCH (08:18)
[2018-09-16] MEDS: FIDAXOMICIN 200 MG TAB (DIFICID) PO SCH (08:18)
[2018-09-16] MEDS: LEVEMIR (INSULIN DETEMIR) 1 UNITS/0.01ML SC SCH (08:18)
[2018-09-16] MEDS: TORSEMIDE 20 MG TAB PO SCH (08:19)
[2018-09-16] MEDS: FAMOTIDINE 20 MG TAB PO SCH (08:19)
[2018-09-16] MEDS: ASPIRIN 81 MG ENTERIC TAB PO SCH (08:19)
[2018-09-16 08:20] VITALS: BP 120/80
[2018-09-16] MEDS: PREGABALIN 75 MG CAP(LYRICA) PO SCH (08:20)
[2018-09-16] MEDS: CARVedilol 6.25 MG TAB PO SCH (08:20)
[2018-09-16] MEDS: PARoxetine 10MG TABLET PO SCH (08:20)
[2018-09-16 08:42] LABS: INR 3.24; PROTHROMBIN TIME 33.8 SECONDS (12.1-14.4)
--- NOTE | 2018-09-16 13:18 | DS.PDOC ---
Discharge Summary General Date of Admission Sep 06, 2018 at 20:58 Date of Discharge 09/16/2018 Discharge Summary PROCEDURES PERFORMED DURING STAY: [None]. ADMITTING DIAGNOSES / DISCHARGE DIAGNOSES: C. diff colitis Influenza DM2 with episodes of hypoglycemia Neuropathy CAD DLP A. fib Rheumatic heart disease with Mechanical MV PVD COPD Decompensated diastolic CHF 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 & Chronic wounds Mood disorder Insomnia Hypothyroidism GI prophylaxis DVT prophylaxis COMPLICATIONS/CHIEF COMPLAINT: Shortness of breath and cough HISTORY OF PRESENT ILLNESS: Patient 58-year-old female with a PMHx of A. fib (on Coumadin), CAD, Rheumatic heart disease s/p Mechanical MV (on Coumadin), PVD, DLP DM2, Neuropathy who presented to the emergency room with complaints of cough and some breath in the emergency room, patient was found to have a positive ones and was admitted to hospitalist service for further evaluation and treatment. HOSPITAL COURSE: C. diff colitis - This morning patient has noted diarrhea and was unable to hold it until she has a bathroom - Has failed 8 days of Vancomycin - No abdominal tenderness noted - GI panel 09/07: Clostridium difficile A/B - c/w Fidaxomicin (Day #2); Failure to improve with Vancomycin 250 PO after 8 day course Influenza - Clinically patient notes that she is not experiencing any significant shortness of breath. She is still experiencing a nonproductive cough - Saturating well on room air - Out of the period to receive Tamiflu - s/p Solumedrol DM2 with episodes of hypoglycemia - c/w ISS and Levemir Neuropathy - c/w Pregabalin CAD - c/w Atorvastatin, Carvedilol and ASA DLP - c/w Atorvastatin A. fib - c/w rate control with Carvedilol - INR target of 2-3; remains therapeutic - c/w full anticoagulation with Coumadin Rheumatic heart disease with Mechanical MV - INR target of 2.5-3.5 - INR therapeutic - c/w Coumadin; will provide one dose of 20 g today and continue with 15 thereafter PVD - c/w Coumadin, Atorvastatin and ASA COPD - No evidence of exacerbation - Continue with inhaled therapy is ordered Decompensated diastolic CHF - Patient had traces of edema over the last several days dose of furosemide was increased orally - This is failed to resolve the problem; - Cr remains stable - c/w Fluid restrictions of 1700 cc - c/w Torsemide 40 BID; will continue upon discharge 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 & Chronic wounds Mood disorder - c/w Paroxetine Insomnia - c/w Ambien Hypothyroidism - c/w Levothyroxine GI prophylaxis - c/w Famotidine DVT prophylaxis - c/w full anticoagulation with Coumadin DISCHARGE MEDICATIONS: Please see below. ALLERGIES: Please see below. PHYSICAL EXAMINATION ON DISCHARGE: Vitals (See below) General: Lying in bed, no acute distress, comfortable, AAOx3 HEENT: NC, AT, + Hirsutism CVS: RRR, +S1S2 Lungs: Air entry is fair bilaterally without evidence of wheezing, rhonchi or rales Abdomen: Abdomen is soft without distention or tenderness Extremities: Trace LE pitting edema - main stable, - Calf tenderness LABORATORY DATA: Please see below. ACTIVITY: [As tolerated]. DIET: Fluid restriction of 1700 cc DISCHARGE PLAN: Follow up with Dr. Miguel Castillo within 7 days Remain compliant with treatment plan and medications Return to the ER if you experience any problems DISPOSITION: Home, Self-Care. DISCHARGE CONDITION: [Stable]. TIME SPENT ON DISCHARGE: Greater than [25] minutes. Vital Signs/I&Os Vital Signs Date Time Temp Pulse Resp B/P (MAP) Pulse Ox O2 Delivery O2 Flow Rate FiO2 09/16/18 08:20 95 120/80 09/16/18 06:00 96.0 20 96 I&O- Last 24 Hours up to 6 AM 09/16/18 06:00 Intake Total 1880 ml Output Total 1200 ml Balance 680 ml Laboratory Data Labs 24H Laboratory Tests 2 09/15/18 16:35: Bedside Glucose (Misc Panel) 219H 09/15/18 21:13: Bedside Glucose (Misc Panel) 289H 09/16/18 06:27: Nucleated Red Blood Cells % (auto) 0.0, Anion Gap 7L, Glomerular Filtration Rate 55.3, Blood Urea Nitrogen 34H, Creatinine 1.09, Sodium Level 142, Potassium Level 3.6, Chloride Level 107, Carbon Dioxide Level 28, Calcium Level 8.2L 09/16/18 07:58: Prothrombin Time 33.8H, Prothromb Time International Ratio 3.24 CBC/BMP Laboratory Tests 09/16/18 06:27 Red Blood Count 4.65, Mean Corpuscular Volume 78.9 L, Mean Corpuscular Hemoglobin 21.7 L, Mean Corpuscular Hemoglobin Concent 27.5 L, Red Cell Distrib ution Width 21.7 H, Calcium Level 8.2 L FSBS Laboratory Tests Test 09/15/18 16:35 09/15/18 21:13 Range/Units Bedside Glucose (Misc Panel) 219 289 70-105 MG/DL Microbiology Microbiology 09/07/18 Gastrointestinal Tract Panel (PCR) - Final, Complete Clostridium Difficile A/B Discharge Medications Scheduled (Carlos Malloy) 100 Unit/Ml Inj, 45 UNITS SQ BID 1 month supply Albuterol/Ipratropium (Ipratropium [place]/Albut 0.5-2.5 (3) mg/3Ml) 1 Jessica Jessica, 1 VIAL NEB BID Aspirin (Aspir-81) 81 Mg Tab, 81 MG PO DAILY, (Reported) Atorvastatin Calcium (Atorvastatin Calcium) 80 Mg Tab, 80 MG PO QHS, (Reported) Carvedilol (Carvedilol) 6.25 Mg Tab, 6.25 MG PO BID, (Reported) Fidaxomicin (Dificid) 200 Mg Tab, 1 TAB PO BID Guaifenesin (Mucinex) 600 Mg Tab, 1,200 MG PO BID Insulin Aspart (Novolog) 100 U/Ml Inj, 10 UNITS SC AC, (Reported) Levothyroxine Sodium (Levoxyl) 137 Mcg Tab, 137 MCG PO DAILY, (Reported) Metformin Hydrochloride (Metformin Hydrochloride) 1,000 Mg Tab, 1,000 MG PO BID, (Reported) Paroxetine (Paroxetine HCl) 5 Mg Halftab, 2.5 MG PO DAILY, (Reported) Pregabalin (Lyrica) 75 Mg Cap, 75 MG PO TID, (Reported) Ranitidine HCl (Ranitidine HCl) 150 Mg Cap, 1 CAP PO BID, (Reported) Salmeterol/Fluticasone (Advair Hfa 115-21 Mcg/Act) 1 Aer Aer, 2 PUFF INH RBID Torsemide (Torsemide) 20 Mg Tab, 80 MG PO BID@09,17 Warfarin Sod (Coumadin) 10 Mg Tab, 15 MG PO 3XW, (Reported) TAKES QHS Warfarin Sod (Coumadin) 10 Mg Tab, 10 MG PO 4XWK, (Reported) PATIENT STATES SHE TOOK 20MG LAST NIGHT 09/05/2018 Zolpidem Tartrate (Zolpidem Tartrate) 5 Mg Tab, 5 MG PO QHS, (Reported) Scheduled PRN Albuterol Sulfate (Ventolin Hfa) 108 Mcg/Act Aer, 2 PUFF INH Q4-6HP PRN for wheezing Allergies Coded Allergies: heparin (Verified Allergy, Severe, Heparin Induced Thrombocytopenia, 09/11/18) ciprofloxacin (Verified Adverse Reaction, Intermediate, Severe Diarrhea, 09/11/18) AUDIE MCKEON MD Sep 16, 2018 13:18
== END 2018-09-16 11:55 | disposition home or self-care (01) | DRG 248 ==
LOC: M ED 16:15 → M ED INP 20:58 → M MS5PR 09-07 01:00
PROVIDERS: ADMIT Internal Medicine; ATTEND Internal Medicine
DX: A04.72 Enterocolitis due to Clostridium difficile, not specified as recurrent (principal); I50.33 Acute on chronic diastolic (congestive) heart failure; E11.649 Type 2 diabetes mellitus with hypoglycemia without coma; E11.40 Type 2 diabetes mellitus with diabetic neuropathy, unspecified; I48.91 Unspecified atrial fibrillation; J10.1 Influenza due to other identified influenza virus with other respiratory manifestations; E03.9 Hypothyroidism, unspecified; G47.00 Insomnia, unspecified; I25.10 Atherosclerotic heart disease of native coronary artery without angina pectoris; J44.9 Chronic obstructive pulmonary disease, unspecified; F39 Unspecified mood [affective] disorder; I09.9 Rheumatic heart disease, unspecified; Z79.01 Long term (current) use of anticoagulants; K52.9 Noninfective gastroenteritis and colitis, unspecified; Z79.899 Other long term (current) drug therapy; Z79.4 Long term (current) use of insulin; Z88.8 Allergy status to other drugs, medicaments and biological substances; Z79.82 Long term (current) use of aspirin; M79.3 Panniculitis, unspecified; K21.9 Gastro-esophageal reflux disease without esophagitis; Z95.2 Presence of prosthetic heart valve

== ENCOUNTER → 2018-09-23 | Outpatient (REF) | payer OTHER ==
[~2018-09-23] MED LIST changes: +ADVA115A INH; +ATOR80TA59 PO; +BENZ-18 PO; -CRES20TA PO; +CRES20TA2 PO; +DIFI200T PO; +FIRV50SO PO; +HYDR-3715 PO; +IPRA0.00 NEB; +METO25TA PO; +MUCI600T37 PO; +NEBUMIS2 XX; -NORCOTAB PO; +PARO10TA3 PO; +RANI150T14; +TORS20TA2 PO; +VENTAER INH
[2018-09-23 17:00] LABS: CALCIUM LEVEL 8.2 MG/DL (8.5-10.1); CREATININE FOR GFR 1.24 MG/DL (0.55-1.30); GLOMERULAR FILTRATION RATE 47.6 (>51); POTASSIUM SERUM 3.6 MEQ/L (3.5-5.1)
[2018-09-23 17:02] LABS: PROTHROMBIN TIME 63.1 SECONDS (12.1-14.4)
[2018-09-23 17:05] LABS: INR 7.11
== END ==
LOC: M SFHCPLAZ 14:43
PROVIDERS: ATTEND Family Medicine
DX: Z79.01 Long term (current) use of anticoagulants (principal); I50.32 Chronic diastolic (congestive) heart failure

== ENCOUNTER 2018-09-24 08:48 | Inpatient (IN) | payer OTHER ==
[~2018-09-24] VITALS: Ht 175.3 cm; Wt 103.2 kg
[~2018-09-24 08:48] MED LIST changes: -BENZ-18 PO; -METO25TA PO; -PARO10TA3 PO; -RANI150T14
[2018-09-24] MEDS: CARVedilol 6.25 MG TAB PO SCH ×2 (09:00→20:31)
[2018-09-24] MEDS: DOCUSATE SODIUM 100 MG CAP PO SCH ×2 (09:00→20:30)
[2018-09-24] MEDS ORDERED: RANI150T14 (09:07)
[2018-09-24] MEDS ORDERED: BENZ-18 PO (09:07)
--- NOTE | 2018-09-24 09:40 | REP ---
Portable chest, 09:18 a.m., semi upright AP single view: Comparison is 09/07/2018. There is an infiltrate inferiorly in the right lung as an interval change. The left lung is clear. Elevation of the right hemidiaphragm is unchanged. Sternotomy wires and pacemaker are unchanged. Mild cardiomegaly is unchanged. Impression: Infiltrate inferiorly in the right lung as an interval change. There are no other interval changes. Electronically Signed by Lucian Martin MD 09/24/2018 09:31 A
[2018-09-24 09:54] LABS: BASO % 0.4 % (0.0-1.0); EOS % 0.1 % (0.0-3.0); HEMATOCRIT 35.2 % (36.0-47.0); HEMOGLOBIN 9.9 g/dl (12.0-15.5); LYMPH # 0.4 10^3/uL (1.5-4.5); LYMPH % 4.4 % (24.0-44.0); MEAN CORPUSCULAR HEMOGLOBIN 21.8 pg (27.0-33.0); MEAN CORPUSCULAR HGB CONC 28.1 g/dl (32.0-36.5); MEAN CORPUSCULAR VOLUME 77.4 fl (80.0-96.0); MONO # 0.6 10^3/uL (0.0-0.8); MONO % 7.6 % (0.0-5.0); NEUTROPHILS # 7.1 10^3/uL (1.8-7.7); PLATELET COUNT, AUTOMATED 240 10^3/uL (150-450); RED BLOOD COUNT 4.55 10^6/uL (4.00-5.40); WHITE BLOOD COUNT 8.2 10^3/uL (4.0-10.0)
[2018-09-24 10:06] LABS: PROTHROMBIN TIME 56.4 SECONDS (12.1-14.4)
[2018-09-24 10:23] LABS: BLOOD UREA NITROGEN 30 MG/DL (7-18); CALCIUM LEVEL 7.9 MG/DL (8.5-10.1); CARBON DIOXIDE LEVEL 30 MEQ/L (21-32); CHLORIDE LEVEL 96 MEQ/L (98-107); CPK CREATINE PHOSPHOKINASE 66 U/L (26-192); CREATININE FOR GFR 1.25 MG/DL (0.55-1.30); GLOMERULAR FILTRATION RATE 47.2 (>51); GLUCOSE, FASTING 392 MG/DL (70-100); MB/CK RELATIVE INDEX 2.27 (< OR =4); NT-PRO BNP 3785 PG/ML (<125); POTASSIUM SERUM 3.8 MEQ/L (3.5-5.1); SODIUM LEVEL 132 MEQ/L (136-145); TROPONIN I < 0.02 NG/ML (< 0.10)
[2018-09-24] MEDS: IPRATROPIUM 0.5MG/ALBUTEROL 2.5MG INH SOL UD 3ML (DUONEB)(J7620) NEB SCH ×3 (10:36→11:09)
[2018-09-24 10:39] LABS: INR 6.17
[2018-09-24] MEDS ORDERED: PIPERACILLIN/TAZOBACTAM SOD 3.375 GM in D5W MINI-BAG PLUS 50 ML IV ONE (10:45)
[2018-09-24 10:49] LABS: ABG BASE EXCESS 6.1 (-2.0-2.0); ABG HCO3 30.3 MEQ/L (22.0-26.0); ABG O2 SATURATION 85.9 % (95.0-99.0); ABG PARTIAL PRESSURE CO2 42.2 mmHg (35.0-45.0); ABG PARTIAL PRESSURE O2 50.5 mmHg (75.0-100.0); ABG STANDARD HCO3 29.8 MEQ/L (22.0-26.0); ABG TOTAL CO2 31.6 MEQ/L (22.0-29.0); ABG pH (ARTERIAL) 7.474 UNITS (7.350-7.450)
[2018-09-24] MEDS ORDERED: ADVA115A INH (11:20)
[2018-09-24] MEDS ORDERED: TORS20TA2 PO (11:20)
[2018-09-24] MEDS ORDERED: PARO10TA3 PO (11:20)
[2018-09-24] MEDS ORDERED: DIFI200T PO (11:22)
[2018-09-24] MEDS ORDERED: METO25TA PO (11:24)
[2018-09-24] MEDS ORDERED: VENTAER INH (11:27)
[2018-09-24] MEDS ORDERED: MOM 30ML SUSPENSION UDC PO PRN (11:30)
[2018-09-24] MEDS ORDERED: MAALOX 30 ML SUSP *UDC PO PRN (11:30)
--- NOTE | 2018-09-24 12:20 | HPEPDOC ---
General Date of Admission Primary Care Physician: DELORES PHILIP DO Attending Physician: NAVIN VILLEGAS MD Chief Complaint The patient is a 58-year-old female admitted with a reason for visit of Diff Breathing. Source: Patient Exam Limitations: No limitations Timing/Duration: Day(s) Severity: Moderate Associated Symptoms: Cough History of Present Illness 58-year-old white female with past medical history of extensive medical problems including diabetes mellitus, CAD status post CABG, status post lung infection with chest tube placement in the past, was recently admitted with pneumonia and lead I. She developed C. difficile presented again with chief complaints of shortness of breath. In ED, patient was diagnosed with limited INR and new right lower lobe infiltrate. Patient is being admitted for new right lower lobe infiltrate and has been started on Zosyn for pneumonia Home Medications Scheduled Aspirin (Aspir 81) 81 Mg Tab, 81 MG PO DAILY, (Reported) Atorvastatin Calcium (Atorvastatin Calcium) 80 Mg Tab, 80 MG PO QHS, (Reported) Carvedilol (Carvedilol) 6.25 Mg Tab, 6.25 MG PO BID, (Reported) Fidaxomicin (Dificid) 200 Mg Tablet, 200 MG PO BID, (Reported) TO STOP 09/26/18 Fluticasone Propion/Salmeterol (Advair Hfa 115-21 Mcg Inhaler) 12 Gm Hfa.aer.ad, 2 PUFF INH BID, (Reported) Insulin Glargine,Hum.rec.anlog (Basaglar Kwikpen U-100) 100 Unit/Ml Inj, 45 UNITS SQ BID 1 month supply Insulin Human Lispro (Novolog) 100 U/Ml Inj, 0 SC AC, (Reported) PER SLIDING SCALE Ipratropium/Albuterol Sulfate (Iprat-Albut 0.5-3(2.5) mg/3 ml) 1 Jessica Jessica, 1 VIAL NEB BID Levothyroxine Sodium (Levoxyl) 137 Mcg Tab, 137 MCG PO DAILY, (Reported) Metformin HCl (Metformin HCl) 1,000 Mg Tab, 1,000 MG PO BID, (Reported) Metolazone (Metolazone) 2.5 Mg Tablet, 1.25 MG PO DAILY, (Reported) X 5 DAYS. PT WAS SUPPOSED TO START TODAY 09/24/18 Paroxetine HCl (Paroxetine) 10 Mg Tablet, 10 MG PO DAILY, (Reported) Pregabalin (Lyrica) 75 Mg Cap, 75 MG PO TID, (Reported) Ranitidine HCl (Ranitidine HCl) 150 Mg Cap, 1 CAP PO BID, (Reported) Torsemide (Torsemide) 20 Mg Tablet, 80 MG PO BID, (Reported) Warfarin Sodium (Coumadin) 10 Mg Tab, 10 MG PO 3XW, (Reported) PT WAS TOLD TO HOLD UNTIL SUNDAY. Zolpidem Tartrate (Zolpidem Tartrate) 5 Mg Tab, 5 MG PO QHS, (Reported) Scheduled PRN Albuterol Sulfate (Ventolin Hfa) 18 Gm Hfa.aer.ad, 2 PUFF INH Q4H PRN for SHORTN ESS OF BREATH, (Reported) Benzonatate (Benzonatate) 100 Mg Capsule, 100 MG PO TID PRN for COUGH, (Reported) Allergies Coded Allergies: heparin (Verified Allergy, Severe, Heparin Induced Thrombocytopenia, 09/11/18) ciprofloxacin (Verified Adverse Reaction, Intermediate, Severe Diarrhea, 09/11/18) Past Medical History Medical History Diabetes mellitus, coronary artery disease status post bypass surgery, status post pacemaker and defibrillator, hypertension, obesity, C. difficile infection, pneumonia Surgical History pacemaker and defibrillator placement. Chest tube placement in the past, hysterectomy, bilateral oophorectomy, foot surgery Social History * Smoker: former Smoker, quit less than 1 year Alcohol: Denies Drugs: denies Review of Systems Constitutional: Denies: Chills, Fever, Night Sweats Eyes: Denies: Pain, Vision change ENT: Denies: Head Aches, Ear Pain, Dysphagia Skin: Denies: Rash, Lesions, Breakdown Pulmonary: Reports: Dyspnea, Cough Cardiovascular: Denies: Chest Pain, Palpitations, Orthopnea, Paroxysmal Noc. Dyspnea, Lt Headedness Gastrointestinal: Denies: Nausea, Vomiting, Abdominal Pain, Diarrhea Genitourinary: Denies: Dysuria, Frequency, Incontinence, Retention Hematologic: Denies: Bruising, Bleeding Excessively Musculoskeletal: Denies: Neck Pain, Back Pain, Joint Pain, Muscle Pain, Spasms Neurological: Denies: Weakness, Numbness, Change in speech, Confusion Psych: Reports: Mood Normal; Denies: Depression, Memory Issues Physical Examination General Exam: Positive: Alert, No Acute Distress Eye Exam: Positive: PERRLA, Conjunctiva & lids normal, EOMI; Negative: Sclera icteric ENT Exam: Positive: Atraumatic, Mucous membr. moist/pink, Pharynx Normal Neck Exam: Positive: Supple; Negative: JVD, thyromegaly Chest Exam: Positive: Other (decreased breath sounds bilaterally but no audible crackles, rhonchi or wheezing) Heart Exam: Positive: Rate Normal, Regular Rhythm, Normal S1, Normal S2; Negative: Murmurs, Rubs Telemetry: Positive: No significant arrhythmia Abdomen Exam: Positive: Normal bowel sounds, Soft; Negative: Tenderness, Hepatospenomegaly Extremity Exam: Positive: Normal pulses; Negative: Clubbing, Cyanosis, Edema Skin Exam: Positive: Nl turgor and temperature; Negative: Breakdown, Lesion Neuro Exam: Positive: Normal Gait, Normal Speech, Cranial Nerves 3-12 NL, Reflexes 2+ Psych Exam: Positive: Mental status NL, Mood NL, Oriented x 3 Vital Signs Vital Signs Date Time Temp Pulse Resp B/P (MAP) Pulse Ox O2 Delivery O2 Flow Rate FiO2 09/24/18 09:33 95 09/24/18 09:18 93 09/24/18 09:15 128/78 (95) 09/24/18 08:52 98.9 20 Room Air Laboratory Data Labs 24H Laboratory Tests 2 09/24/18 09:32: Immature Granulocyte % (Auto) 0.5, White Blood Count 8.2, Red Blood Count 4.55, Hemoglobin 9.9L, Hematocrit 35.2L, Mean Corpuscular Volume 77.4L, Mean Corpuscular Hemoglobin 21.8L, Mean Corpuscular Hemoglobin Concent 28.1L, Red Cell Distribution Width 21.3H, Platelet Count 240, Neutrophils (%) (Auto) 87.0H, Lymphocytes (%) (Auto) 4.4L, Monocytes (%) (Auto) 7.6H, Eosinophils (%) (Auto) 0.1, Basophils (%) (Auto) 0.4, Neutrophils # (Auto) 7.1, Lymphocytes # (Auto) 0.4L, Monocytes # (Auto) 0.6, Eosinophils # (Auto) 0.0, Basophils # (Auto) 0.0, Nucleated Red Blood Cells % (auto) 0.2H, Prothrombin Time 56.4H, Prothromb Time International Ratio 6.17*H, Anion Gap 6L, Glomerular Filtration Rate 47.2L, Lactic Acid Level 1.0, Blood Urea Nitrogen 30H, Creatinine 1.25, Sodium Level 132L, Potassium Level 3.8, Chloride Level 96L, Carbon Dioxide Level 30, Calcium Level 7.9L, Total Creatine Kinase 66, Creatine Kinase MB 2.0, Creatine Kinase MB Relative Index 2.27, Troponin I < 0.02, EI-Tpp-A-Type Natriuretic Peptide 3785H, Thyroid Stimulating Hormone (TSH) 6.420H 09/24/18 10:25: Blood Gas Bicarbonate Standard 29.8H, Arterial Blood pH 7.474H, Arterial Blood Partial Pressure CO2 42.2, Arterial Blood Partial Pressure O2 50.5L, Arterial Blood Total CO2 31.6H, Arterial Blood HCO3 30.3H, Arterial Blood Base Excess 6 .1H, Arterial Blood Oxygen Saturation 85.9L CBC/BMP Laboratory Tests 09/24/18 09:32 Red Blood Count 4.55, Mean Corpuscular Volume 77.4 L, Mean Corpuscular Hemoglobin 21.8 L, Mean Corpuscular Hemoglobin Concent 28.1 L, Red Cell Distribution Width 21.3 H, Neutrophils (%) (Auto) 87.0 H, Lymphocytes (%) (Auto) 4.4 L, Monocytes (%) (Auto) 7.6 H, Eosinophils (%) (Auto) 0.1, Basophils (%) (Auto) 0.4, Neutrophils # (Auto) 7.1, Lymphocytes # (Auto) 0.4 L, Monocytes # (Auto) 0.6, Eosinophils # (Auto) 0.0, Basophils # (Auto) 0.0, Calcium Level 7.9 L, Total Creatine Kinase 66 Microbiology Microbiology 09/24/18 Blood Culture, Received Pending 09/24/18 Blood Culture, Received Pending Problems (1) RLL pneumonia Status: Acute Response to Treatment: Stable Discussed With: Nurse Problem Specific Plan: Monitor Clinically Problem Text: Admit to [facility] floor Since patient was recently admitted to the hospital and has been started on Zosyn, I will continue the same. Low risk for MRSA, so will not aid vancomycin at the present time DuoNeb every 4 hours when necessary His sputum C&S has been ordered Hemoptysis most likely secondary to supratherapeutic INR, which indicate which is being addressed Will monitor clinically for patient's improvement DVT prophylaxis is not indicated as patient has supratherapeutic INR and will also wide SCDs. This can cause hemorrhage in the legs (2) Supratherapeutic INR Status: Acute Problem Specific Plan: Monitor Clinically Problem Text: Patient is supratherapeutic INR, most likely secondary to addition of deficit Will DC deficit as patient has already taken for 8 days and has no signs and symptoms of C. difficile infection Most common complication of deficit. GI bleed Will give patient vitamin K 5 mg by mouth 1 dose and repeat INR in a.m. Ezio will not hold aspirin in the meantime, as patient has extensive history of cardiac disease Will monitor H&H INR in a.m. and daily Plan / VTE VTE Prophylaxis Ordered?: Yes VTE Exclusion Mechanical Proph: Other (supratherapeutic INR) VTE Exclusion Pharmacological: Other (supratherapeutic INR) NAVIN VILLEGAS MD Sep 24, 2018 12:20
[2018-09-24 14:30] VITALS: BP 127/70
[2018-09-24] MEDS: PREGABALIN 75 MG CAP(LYRICA) PO SCH ×2 (16:11→20:31)
[2018-09-24] MEDS: TORSEMIDE 20 MG TAB PO SCH (16:12)
[2018-09-24] MEDS: metOLazone 2.5 MG TAB PO SCH (16:12)
[2018-09-24] MEDS: PIPERACILLIN/TAZOBACTAM SOD 3.375 GM in D5W MINI-BAG PLUS 50 ML IV SCH (16:13)
[2018-09-24] MEDS: ALBUTEROL 90 MCG/ACT 8GM HFA INHALER INH PRN (16:25)
[2018-09-24] MEDS: guaiFENesin DM LIQ 10ML UD PO PRN ×2 (16:30→22:05)
[2018-09-24] MEDS: BENZONATATE 100 MG CAP PO PRN (16:30)
[2018-09-24] MEDS ORDERED: PILL CRUSHER/CUTTER 1 EACH XX PRN (16:30)
[2018-09-24 20:00] VITALS: BP 142/84
[2018-09-24] MEDS: ADVAIR HFA 115/21MCG INHALER INH SCH (20:17)
[2018-09-24] MEDS: metFORMIN (GLUCOPHAGE) 1000 MG TABLET PO SCH (20:30)
[2018-09-24] MEDS: FAMOTIDINE 20 MG TAB PO SCH (20:30)
[2018-09-24] MEDS: zolPIDEM TARTRATE 5 MG TAB PO SCH (20:30)
[2018-09-24] MEDS: ATORVASTATIN 20 MG TAB PO SCH (20:30)
[2018-09-25] MEDS: IPRATROPIUM 0.5MG/ALBUTEROL 2.5MG INH SOL UD 3ML (DUONEB)(J7620) NEB PRN ×5 (00:31→16:14)
[2018-09-25] MEDS: PIPERACILLIN/TAZOBACTAM SOD 3.375 GM in D5W MINI-BAG PLUS 50 ML IV SCH ×6 (05:44→22:32)
[2018-09-25] MEDS: LEVOTHYROXINE 137MCG TABLET (0.137MG) PO SCH (05:44)
[2018-09-25 06:00] VITALS: BP 150/82
[2018-09-25 06:30] LABS: HEMATOCRIT 34.1 % (36.0-47.0); HEMOGLOBIN 9.5 g/dl (12.0-15.5); MEAN CORPUSCULAR HEMOGLOBIN 21.6 pg (27.0-33.0); MEAN CORPUSCULAR HGB CONC 27.9 g/dl (32.0-36.5); MEAN CORPUSCULAR VOLUME 77.5 fl (80.0-96.0); PLATELET COUNT, AUTOMATED 202 10^3/uL (150-450); WHITE BLOOD COUNT 5.7 10^3/uL (4.0-10.0)
[2018-09-25 06:42] LABS: INR 3.51
[2018-09-25 06:59] LABS: CREATININE FOR GFR 1.41 MG/DL (0.55-1.30); GLOMERULAR FILTRATION RATE 41.1 (>51); POTASSIUM SERUM 3.5 MEQ/L (3.5-5.1)
[2018-09-25 07:00] LABS: ALBUMIN 2.3 GM/DL (3.2-5.2); CALCIUM LEVEL 8.5 MG/DL (8.5-10.1); TOTAL PROTEIN 6.9 GM/DL (6.4-8.2)
[2018-09-25] MEDS ORDERED: GLUCOSE 4 GM CHEW TABLET PO PRN (07:15)
[2018-09-25] MEDS ORDERED: GLUCAGON FOR INJ 1 MG VIAL (J1610) SC PRN (07:15)
[2018-09-25] MEDS ORDERED: DEXTROSE 50% 50 ML SYRINGE IV PRN (07:15)
[2018-09-25] MEDS: ADVAIR HFA 115/21MCG INHALER INH SCH ×2 (08:09→20:07)
[2018-09-25] MEDS: metFORMIN (GLUCOPHAGE) 1000 MG TABLET PO SCH ×2 (08:19→21:00)
[2018-09-25] MEDS: PREGABALIN 75 MG CAP(LYRICA) PO SCH ×3 (08:19→21:00)
[2018-09-25] MEDS: PARoxetine 10MG TABLET PO SCH (08:19)
[2018-09-25] MEDS: HumaLOG INSULIN (NovoLOG) PER UNIT SC SCH ×4 (08:19→22:33)
[2018-09-25] MEDS: metOLazone 2.5 MG TAB PO SCH (08:20)
[2018-09-25] MEDS: DOCUSATE SODIUM 100 MG CAP PO SCH ×2 (08:21→21:00)
[2018-09-25] MEDS: TORSEMIDE 20 MG TAB PO SCH ×2 (08:21→16:32)
[2018-09-25] MEDS: FAMOTIDINE 20 MG TAB PO SCH ×2 (08:21→21:00)
[2018-09-25] MEDS: ASPIRIN 81 MG ENTERIC TAB PO SCH (08:21)
[2018-09-25] MEDS: CARVedilol 6.25 MG TAB PO SCH ×2 (08:24→21:02)
--- NOTE | 2018-09-25 09:00 | ECGEPIP ---
Stationary ECG Study [facility] - ED Test Date: 2018-09-24 Pat Name: MCKENZIE CARDENAS Department: Room: - Gender: F [employer]: TC : [id number] Requested By: Herb Campbell Order Number: [id number] Reading MD: Dolly Shah Measurements Intervals [place] Rate: 90 P: PA: 0 QRS: 55 QRSD: 95 T: 86 QT: 385 QTc: 473 Interpretive Statements ATRIAL FIBRILLATION INDETERMINATE AXIS INCOMPLETE RIGHT BUNDLE BRANCH BLOCK ABNORMAL RHYTHM ECG Electronically Signed On 09-25-2018 9:00:24 EDT by Dolly Shah
[2018-09-25] MEDS: guaiFENesin DM LIQ 10ML UD PO PRN (09:12)
[2018-09-25 14:00] VITALS: BP 121/67
--- NOTE | 2018-09-25 14:25 | IPNPDOC ---
Subjective Date Seen The patient was seen on 09/25/18. Subjective Chief Complaint/HPI Patient feeling better, still has cough and blood sugar is still high General: Reports: Normal Appetite; Denies: Chills, Night Sweats, Fatigue, Malaise Constitutional: Denies: Chills, Fever, Night Sweats Eyes: Denies: Pain, Vision change ENT: Denies: Head Aches, Ear Pain, Dysphagia Skin: Denies: Rash, Lesions, Breakdown Pulmonary: Reports: Cough; Denies: Dyspnea Cardiovascular: Denies: Chest Pain, Palpitations, Orthopnea, Paroxysmal Noc. Dyspnea, Lt Headedness Gastrointestinal: Denies: Nausea, Vomiting, Abdominal Pain, Diarrhea, Constipation Genitourinary: Denies: Dysuria, Frequency, Incontinence, Retention Hematologic: Denies: Bruising, Bleeding Excessively Musculoskeletal: Denies: Neck Pain, Back Pain, Joint Pain, Muscle Pain, Spasms Neurological: Denies: Weakness, Numbness, Change in speech, Confusion Psych: Reports: Mood Normal; Denies: Depression, Memory Issues Objective Physical Examination General Exam: Positive: Alert, No Acute Distress Eye Exam: Positive: PERRLA, Conjunctiva & lids normal, EOMI; Negative: Sclera icteric ENT Exam: Positive: Atraumatic, Mucous membr. moist/pink, Pharynx Normal Neck Exam: Positive: Supple; Negative: JVD, thyromegaly Chest Exam: Positive: Other (decreased breath sounds bilaterally but no audible crackles, rhonchi or wheezing) Heart Exam: Positive: Rate Normal, Regular Rhythm, Normal S1, Normal S2; Negative: Murmurs, Rubs Telemetry: Positive: No significant arrhythmia Abdomen Exam: Positive: Normal bowel sounds, Soft; Negative: Tenderness, Hepatospenomegaly Extremity Exam: Positive: Normal pulses; Negative: Clubbing, Cyanosis, Edema Skin Exam: Positive: Nl turgor and temperature; Negative: Breakdown, Lesion Neuro Exam: Positive: Normal Gait, Normal Speech, Cranial Nerves 3-12 NL, Reflexes 2+ Psych Exam: Positive: Mental status NL, Mood NL, Oriented x 3 Assessment /Plan Problems (1) RLL pneumonia Status: Acute Response to Treatment: Stable Discussed With: Nurse Problem Specific Plan: Monitor Clinically Problem Text: Admit to [facility] floor Since patient was recently admitted to the hospital and has been started on Zosyn, I will continue the same. Low risk for MRSA, so will not aid vancomycin at the present time DuoNeb every 4 hours when necessary His sputum C&S has been ordered Hemoptysis most likely secondary to supratherapeutic INR, which indicate which is being addressed Decreasing hemoptysis than previously Will monitor clinically for patient's improvement DVT prophylaxis is not indicated as patient has supratherapeutic INR and will also wide SCDs. This can cause hemorrhage in the legs (2) Supratherapeutic INR Status: Acute Problem Specific Plan: Monitor Clinically Problem Text: Patient is supratherapeutic INR, most likely secondary to addition of deficit Will DC deficit as patient has already taken for 8 days and has no signs and symptoms of C. difficile infection Most common complication of deficit. GI bleed INR is 3.5 one today. Repeat INR in a.m. Ezio will not hold aspirin in the meantime, as patient has extensive history of cardiac disease Will monitor H&H (3) Hypothyroid Problem Text: Continue Synthroid. Probably needs a adjustment in dosage, but can be done as an outpatient Plan/VTE VTE Prophylaxis Ordered?: Yes VTE Exclusion Mechanical Proph: Other (supratherapeutic INR) VTE Exclusion Pharmacological: Other (supratherapeutic INR) VS, I&O, 24H, Fishbone Vital Signs/I&O Vital Signs Date Time Temp Pulse Resp B/P (MAP) Pulse Ox O2 Delivery O2 Flow Rate FiO2 09/25/18 08:24 94 130/72 09/25/18 06:00 97.9 19 96 09/24/18 12:35 Room Air I&O- Last 24 Hours up to 6 AM 09/25/18 06:00 Intake Total 1790 ml Output Total 1000 ml Balance 790 ml Laboratory Data 24H LABS Laboratory Tests 2 09/25/18 06:06: Nucleated Red Blood Cells % (auto) 0.0, Prothrombin Time 36.0H, Prothromb Time International Ratio 3.51, Anion Gap 6L, Glomerular Filtration Rate 41.1L, Blood Urea Nitrogen 27H, Creatinine 1.41H, Sodium Level 133L, Potassium Level 3.5, Chloride Level 93L, Carbon Dioxide Level 34H, Calcium Level 8.5, Aspartate Amino Transf (AST/SGOT) 10, Alanine Aminotransferase (ALT/SGPT) 17, Alkaline Ph osphatase 286H, Total Bilirubin 1.0, Total Protein 6.9, Albumin 2.3L, Albumin/Globulin Ratio 0.50L 09/25/18 11:36: Bedside Glucose (Misc Panel) 412H CBC/BMP Laboratory Tests 09/25/18 06:06 Red Blood Count 4.40, Mean Corpuscular Volume 77.5 L, Mean Corpuscular Hemoglobin 21.6 L, Mean Corpuscular Hemoglobin Concent 27.9 L, Red Cell Distribution Width 20.6 H, Calcium Level 8.5, Aspartate Amino Transf (AST/SGOT) 10, Alanine Aminotransferase (ALT/SGPT) 17, Alkaline Phosphatase 286 H, Total Bilirubin 1.0, Total Protein 6.9, Albumin 2.3 L Microbiology Microbiology 09/24/18 Blood Culture - Preliminary, Resulted No growth after 24 hours . All specim... 09/24/18 Blood Culture - Preliminary, Resulted No growth after 24 hours . All specim... NAVIN VILLEGAS MD Sep 25, 2018 14:25
[2018-09-25] MEDS: ATORVASTATIN 20 MG TAB PO SCH (20:59)
[2018-09-25] MEDS ORDERED: LEVEMIR (INSULIN DETEMIR) 1 UNITS/0.01ML SC SCH (21:00)
[2018-09-25] MEDS: zolPIDEM TARTRATE 5 MG TAB PO SCH (21:00)
[2018-09-25 22:00] VITALS: BP 121/76
[2018-09-26] MEDS: IPRATROPIUM 0.5MG/ALBUTEROL 2.5MG INH SOL UD 3ML (DUONEB)(J7620) NEB PRN ×4 (00:03→18:34)
[2018-09-26 06:00] VITALS: BP 114/69
[2018-09-26] MEDS: LEVOTHYROXINE 137MCG TABLET (0.137MG) PO SCH (06:00)
[2018-09-26] MEDS: PIPERACILLIN/TAZOBACTAM SOD 3.375 GM in D5W MINI-BAG PLUS 50 ML IV SCH ×4 (06:00→23:19)
[2018-09-26 06:38] LABS: INR 2.65; PROTHROMBIN TIME 28.8 SECONDS (12.1-14.4)
[2018-09-26] MEDS: ADVAIR HFA 115/21MCG INHALER INH SCH ×2 (07:42→20:57)
[2018-09-26] MEDS: TORSEMIDE 20 MG TAB PO SCH ×2 (07:46→16:04)
[2018-09-26] MEDS: DOCUSATE SODIUM 100 MG CAP PO SCH ×2 (07:46→20:42)
[2018-09-26] MEDS: HumaLOG INSULIN (NovoLOG) PER UNIT SC SCH ×4 (07:46→20:51)
[2018-09-26] MEDS: PARoxetine 10MG TABLET PO SCH (07:46)
[2018-09-26] MEDS: PREGABALIN 75 MG CAP(LYRICA) PO SCH ×3 (07:47→20:43)
[2018-09-26] MEDS: metFORMIN (GLUCOPHAGE) 1000 MG TABLET PO SCH ×2 (07:47→20:43)
[2018-09-26] MEDS: metOLazone 2.5 MG TAB PO SCH (07:47)
[2018-09-26] MEDS: FAMOTIDINE 20 MG TAB PO SCH ×2 (07:47→20:42)
[2018-09-26] MEDS: ASPIRIN 81 MG ENTERIC TAB PO SCH (07:47)
[2018-09-26] MEDS: CARVedilol 6.25 MG TAB PO SCH ×2 (07:48→20:45)
[2018-09-26] MEDS: guaiFENesin DM LIQ 10ML UD PO PRN ×2 (09:37→20:41)
--- NOTE | 2018-09-26 10:04 | REP ---
Chest x-ray: Two views. History: Right lower lobe pneumonia. Comparison study: September 24, 2018. September 07, 2018 chest x-ray is also reviewed. Findings: There is persistent consolidation in the distribution of the right middle lobe. This is quite similar to the prior study, perhaps a little smaller. There are patchy discoid atelectatic changes in the left perihilar region. No other infiltrate is seen. Prior sternotomy wires and a unipolar pacemaker lead are again seen. Impression: Right middle lobe infiltrate persists essentially unchanged from the study done 2 days ago. Electronically Signed by Reymundo Jay MD 09/26/2018 06:32 P
[2018-09-26] MEDS ORDERED: TUBERCULIN PPD 5 UNITS/0.1 ML ID ONE (12:00)
--- NOTE | 2018-09-26 12:37 | IPNPDOC ---
Subjective Date Seen The patient was seen on 09/26/18. Subjective Chief Complaint/HPI Patient complaining of diarrhea, unable to hold her feces. No respiratory symptoms. No hemoptysis General: Reports: Normal Appetite; Denies: Chills, Night Sweats, Fatigue, Malaise Constitutional: Denies: Chills, Fever, Night Sweats Eyes: Denies: Pain, Vision change ENT: Denies: Head Aches, Ear Pain, Dysphagia Skin: Denies: Rash, Lesions, Breakdown Pulmonary: Denies: Dyspnea, Cough Cardiovascular: Denies: Chest Pain, Palpitations, Orthopnea, Paroxysmal Noc. Dyspnea, Lt Headedness Gastrointestinal: Denies: Nausea, Vomiting, Abdominal Pain, Diarrhea, Constipat ion Genitourinary: Denies: Dysuria, Frequency, Incontinence, Retention Hematologic: Denies: Bruising, Bleeding Excessively Musculoskeletal: Denies: Neck Pain, Back Pain, Joint Pain, Muscle Pain, Spasms Neurological: Denies: Weakness, Numbness, Change in speech, Confusion Psych: Reports: Mood Normal; Denies: Depression, Memory Issues Objective Physical Examination General Exam: Positive: Alert, No Acute Distress Eye Exam: Positive: PERRLA, Conjunctiva & lids normal, EOMI; Negative: Sclera icteric ENT Exam: Positive: Atraumatic, Mucous membr. moist/pink, Pharynx Normal Neck Exam: Positive: Supple; Negative: JVD, thyromegaly Chest Exam: Positive: Other (decreased breath sounds bilaterally but no audible crackles, rhonchi or wheezing) Heart Exam: Positive: Rate Normal, Regular Rhythm, Normal S1, Normal S2; Negative: Murmurs, Rubs Telemetry: Positive: No significant arrhythmia Abdomen Exam: Positive: Normal bowel sounds, Soft; Negative: Tenderness, Hepatospenomegaly Extremity Exam: Positive: Normal pulses; Negative: Clubbing, Cyanosis, Edema Skin Exam: Positive: Nl turgor and temperature; Negative: Breakdown, Lesion Neuro Exam: Positive: Normal Gait, Normal Speech, Cranial Nerves 3-12 NL, Reflexes 2+ Psych Exam: Positive: Mental status NL, Mood NL, Oriented x 3 Assessment /Plan Problems (1) RLL pneumonia Status: Acute Response to Treatment: Stable Discussed With: Nurse Problem Specific Plan: Monitor Clinically Problem Text[facility] Since patient was recently admitted to the hospital and has been started on Zosyn, I will continue the same. Low risk for MRSA, so will not aid vancomycin at the present time DuoNeb every 4 hours when necessary His sputum C&S has been ordered again Hemoptysis most likely secondary to supratherapeutic INR, which indicate which is being addressed Hemoptysis nor has resolved, but patient is still expectorating sputum Will monitor clinically for patient's improvement DVT prophylaxis is not indicated as patient has supratherapeutic INR and will also wide SCDs. This can cause hemorrhage in the legs (2) Supratherapeutic INR Status: Acute Problem Specific Plan: Monitor Clinically Problem Text: INR is within therapeutic window, Restart Coumadin 10 mg by mouth 3 times a week from tomorrow Hemoptysis that has resolved (3) Hypothyroid Problem Text: Continue Synthroid. Probably needs a adjustment in dosage, but can be done as an outpatient (4) Diarrhea Status: Acute Problem Text: Most likely recurrence of C. difficile Start dificle 200 mg by mouth twice a day Stool for C. difficile Oral hydration Contact isolation Plan/VTE VTE Prophylaxis Ordered?: Yes VTE Exclusion Mechanical Proph: Other (supratherapeutic INR) VTE Exclusion Pharmacological: Other (supratherapeutic INR) VS, I&O, 24H, Fishbone Vital Signs/I&O Vital Signs Date Time Temp Pulse Resp B/P (MAP) Pulse Ox O2 Delivery O2 Flow Rate FiO2 09/26/18 07:48 94 114/69 09/26/18 06:00 98.4 18 92 09/24/18 12:35 Room Air I&O- Last 24 Hours up to 6 AM 09/26/18 06:00 Intake Total 2080 ml Output Total 1950 ml Balance 130 ml Laboratory Data 24H LABS Laboratory Tests 2 09/25/18 16:42: Bedside Glucose (Misc Panel) 196H 09/25/18 20:58: Bedside Glucose (Misc Panel) 295H 09/26/18 06:02: Prothrombin Time 28.8H, Prothromb Time International Ratio 2.65 09/26/18 06:11: Bedside Glucose (Misc Panel) 394H 09/26/18 11:15: Bedside Glucose (Misc Panel) 375H Microbiology Microbiology 09/24/18 Blood Culture - Preliminary, Resulted No Growth after 48 hours. All Specime... 09/24/18 Blood Culture - Preliminary, Resulted No Growth after 48 hours. All Specime... NAVIN VILLEGAS MD Sep 26, 2018 12:37
[2018-09-26] MEDS: LEVEMIR (INSULIN DETEMIR) 1 UNITS/0.01ML SC SCH ×2 (12:42→20:51)
[2018-09-26 14:00] VITALS: BP 114/47
[2018-09-26] MEDS: FIDAXOMICIN 200 MG TAB (DIFICID) PO SCH ×2 (14:04→20:42)
[2018-09-26] MEDS ORDERED: WARFARIN SOD 5 MG TAB PO SCH (17:00)
[2018-09-26] MEDS: ATORVASTATIN 20 MG TAB PO SCH (20:42)
[2018-09-26] MEDS: zolPIDEM TARTRATE 5 MG TAB PO SCH (20:43)
[2018-09-26 22:00] VITALS: BP 132/75
[2018-09-26] MEDS: BENZONATATE 100 MG CAP PO PRN (23:19)
[2018-09-27] MEDS: ALBUTEROL 90 MCG/ACT 8GM HFA INHALER INH PRN (01:06)
[2018-09-27] MEDS: guaiFENesin DM LIQ 10ML UD PO PRN ×3 (05:57→20:53)
[2018-09-27] MEDS: PIPERACILLIN/TAZOBACTAM SOD 3.375 GM in D5W MINI-BAG PLUS 50 ML IV SCH ×4 (05:57→23:30)
[2018-09-27] MEDS: LEVOTHYROXINE 137MCG TABLET (0.137MG) PO SCH (05:57)
[2018-09-27 06:00] VITALS: BP 142/74
[2018-09-27 06:33] LABS: INR 1.97; PROTHROMBIN TIME 22.8 SECONDS (12.1-14.4)
[2018-09-27] MEDS: ADVAIR HFA 115/21MCG INHALER INH SCH ×2 (07:57→20:16)
[2018-09-27] MEDS: metOLazone 2.5 MG TAB PO SCH (08:30)
[2018-09-27] MEDS: metFORMIN (GLUCOPHAGE) 1000 MG TABLET PO SCH ×2 (08:30→20:52)
[2018-09-27] MEDS: TORSEMIDE 20 MG TAB PO SCH ×2 (08:30→17:38)
[2018-09-27] MEDS: FIDAXOMICIN 200 MG TAB (DIFICID) PO SCH ×2 (08:30→20:52)
[2018-09-27] MEDS: FAMOTIDINE 20 MG TAB PO SCH ×2 (08:31→20:52)
[2018-09-27] MEDS: PREGABALIN 75 MG CAP(LYRICA) PO SCH ×3 (08:31→20:52)
[2018-09-27] MEDS: PARoxetine 10MG TABLET PO SCH (08:31)
[2018-09-27] MEDS: CARVedilol 6.25 MG TAB PO SCH ×2 (08:31→20:53)
[2018-09-27] MEDS: LEVEMIR (INSULIN DETEMIR) 1 UNITS/0.01ML SC SCH ×2 (08:31→20:53)
[2018-09-27] MEDS: ASPIRIN 81 MG ENTERIC TAB PO SCH (08:31)
[2018-09-27] MEDS: HumaLOG INSULIN (NovoLOG) PER UNIT SC SCH ×4 (08:32→20:54)
[2018-09-27] MEDS: DOCUSATE SODIUM 100 MG CAP PO SCH (08:32)
[2018-09-27] MEDS ORDERED: MAG SULF 1GM/100ML (MAG RUN) 1 GM in APPROPRIATE DILUENT 1 EA IV ONE (11:30)
--- NOTE | 2018-09-27 12:37 | IPNPDOC ---
Subjective Date Seen The patient was seen on 09/27/18. Subjective Chief Complaint/HPI Patient still complaining of diarrhea and also complaining of some blood in the sputum General: Reports: Normal Appetite; Denies: Chills, Night Sweats, Fatigue, Malaise Constitutional: Denies: Chills, Fever, Night Sweats Eyes: Denies: Pain, Vision change ENT: Denies: Head Aches, Ear Pain, Dysphagia Skin: Denies: Rash, Lesions, Breakdown Pulmonary: Reports: Cough, Other Symptoms (blood in his sputum); Denies: Dyspnea Cardiovascular: Denies: Chest Pain, Palpitations, Orthopnea, Paroxysmal Noc. Dyspnea, Lt Headedness Gastrointestinal: Reports: Diarrhea; Denies: Nausea, Vomiting, Abdominal Pain, Constipation Genitourinary: Denies: Dysuria, Frequency, Incontinence, Retention Hematologic: Denies: Bruising, Bleeding Excessively Musculoskeletal: Denies: Neck Pain, Back Pain, Joint Pain, Muscle Pain, Spasms Neurological: Denies: Weakness, Numbness, Change in speech, Confusion Psych: Reports: Mood Normal; Denies: Depression, Memory Issues Objective Physical Examination General Exam: Positive: Alert, No Acute Distress Eye Exam: Positive: PERRLA, Conjunctiva & lids normal, EOMI; Negative: Sclera icteric ENT Exam: Positive: Atraumatic, Mucous membr. moist/pink, Pharynx Normal Neck Exam: Positive: Supple; Negative: JVD, thyromegaly Chest Exam: Positive: Other (decreased breath sounds bilaterally but no audible crackles, rhonchi or wheezing) Heart Exam: Positive: Rate Normal, Regular Rhythm, Normal S1, Normal S2; Negative: Murmurs, Rubs Telemetry: Positive: No significant arrhythmia Abdomen Exam: Positive: Normal bowel sounds, Soft; Negative: Tenderness, Hepatospenomegaly Extremity Exam: Positive: Normal pulses; Negative: Clubbing, Cyanosis, Edema Skin Exam: Positive: Nl turgor and temperature; Negative: Breakdown, Lesion Neuro Exam: Positive: Normal Gait, Normal Speech, Cranial Nerves 3-12 NL, Reflexes 2+ Psych Exam: Positive: Mental status NL, Mood NL, Oriented x 3 Assessment /Plan Problems (1) RLL pneumonia Status: Acute Response to Treatment: Stable Discussed With: Nurse Problem Specific Plan: Monitor Clinically Problem Text: Admit to [facility] floor On IV Zosyn. Will continue continue the same for right lower lobe infiltrate which has not changed from previous chest x-ray Low risk for MRSA, so will not aid vancomycin at the present time DuoNeb every 4 hours when necessary His sputum C&S has been ordered again: Still pending Hemoptysis most likely secondary to supratherapeutic INR, which indicate which is being addressed Hemoptysis nor has resolved, but patient is still expectorating sputum Will monitor clinically for patient's improvement DVT prophylaxis is not indicated as patient had supratherapeutic INR , now INR is 1.9. We will restart Coumadin as per home medication dosage CBC, CMP, INR remained (2) Supratherapeutic INR Status: Acute Problem Specific Plan: Monitor Clinically Problem Text: INR is within therapeutic window, Restart Coumadin 10 mg by mouth 3 times a week from tomorrow INR in a.m. (3) Hypothyroid Status: Chronic Problem Text: Continue Synthroid. Probably needs a adjustment in dosage, but can be done as an outpatient (4) Diarrhea Status: Acute Problem Text: Most likely recurrence of C. difficile Start dificle 200 mg by mouth twice a day Stool for C. difficile: Still pending DC his stool softeners Oral hydration Contact isolation Plan/VTE VTE Prophylaxis Ordered?: Yes VTE Exclusion Mechanical Proph: Other (supratherapeutic INR) VTE Exclusion Pharmacological: Other (supratherapeutic INR) VS, I&O, 24H, Fishbone Vital Signs/I&O Vital Signs Date Time Temp Pulse Resp B/P (MAP) Pulse Ox O2 Delivery O2 Flow Rate FiO2 09/27/18 08:31 67 142/74 09/27/18 06:00 96.0 20 94 09/24/18 12:35 Room Air I&O- Last 24 Hours up to 6 AM 09/27/18 06:00 Intake Total 2160 ml Output Total 900 ml Balance 1260 ml Laboratory Data 24H LABS Laboratory Tests 2 09/26/18 14:29: Bedside Glucose (Misc Panel) 167H 09/26/18 16:33: Bedside Glucose (Misc Panel) 180H 09/26/18 20:50: Bedside Glucose (Misc Panel) 229H 09/27/18 05:46: Prothrombin Time 22.8H, Prothromb Time International Ratio 1.97, Magnesium Level 1.5L 09/27/18 08:05: Bedside Glucose (Misc Panel) 239H 09/27/18 11:56: Bedside Glucose (Misc Panel) 115H Microbiology Microbiology 09/24/18 Blood Culture - Preliminary, Resulted No Growth after 72 hours. All specime... 09/24/18 Blood Culture - Preliminary, Resulted No Growth after 72 hours. All specime... NAVIN VILLEGAS MD Sep 27, 2018 12:37
[2018-09-27 14:00] VITALS: BP 124/62
[2018-09-27] MEDS: EUCERIN 120GM CREAM TOP SCH ×2 (14:08→20:54)
[2018-09-27] MEDS: IPRATROPIUM 0.5MG/ALBUTEROL 2.5MG INH SOL UD 3ML (DUONEB)(J7620) NEB PRN (15:16)
[2018-09-27] MEDS: zolPIDEM TARTRATE 5 MG TAB PO SCH (20:52)
[2018-09-27] MEDS: BENZONATATE 100 MG CAP PO PRN (20:52)
[2018-09-27] MEDS: ATORVASTATIN 20 MG TAB PO SCH (20:53)
[2018-09-27 22:00] VITALS: BP 133/74
[2018-09-28] MEDS: LEVOTHYROXINE 137MCG TABLET (0.137MG) PO SCH (05:23)
[2018-09-28] MEDS: PIPERACILLIN/TAZOBACTAM SOD 3.375 GM in D5W MINI-BAG PLUS 50 ML IV SCH ×4 (05:23→23:03)
[2018-09-28] MEDS: guaiFENesin DM LIQ 10ML UD PO PRN ×4 (05:23→21:19)
[2018-09-28 06:00] VITALS: BP 109/50
[2018-09-28 07:23] LABS: BASO % 0.5 % (0.0-1.0); EOS # 0.1 10^3/uL (0.0-0.50); EOS % 2.4 % (0.0-3.0); HEMATOCRIT 36.9 % (36.0-47.0); HEMOGLOBIN 10.6 g/dl (12.0-15.5); LYMPH # 1.1 10^3/uL (1.5-4.5); LYMPH % 19.4 % (24.0-44.0); MEAN CORPUSCULAR HEMOGLOBIN 21.9 pg (27.0-33.0); MEAN CORPUSCULAR HGB CONC 28.7 g/dl (32.0-36.5); MEAN CORPUSCULAR VOLUME 76.2 fl (80.0-96.0); MONO # 0.6 10^3/uL (0.0-0.8); MONO % 11.5 % (0.0-5.0); NEUTROPHILS # 3.6 10^3/uL (1.8-7.7); NEUTROPHILS % 65.5 % (36.0-66.0); PLATELET COUNT, AUTOMATED 275 10^3/uL (150-450); RED BLOOD COUNT 4.84 10^6/uL (4.00-5.40); WHITE BLOOD COUNT 5.5 10^3/uL (4.0-10.0)
[2018-09-28 07:40] LABS: INR 1.71; PROTHROMBIN TIME 20.4 SECONDS (12.1-14.4)
[2018-09-28 07:49] LABS: ALBUMIN 2.4 GM/DL (3.2-5.2); BILIRUBIN,TOTAL 0.7 MG/DL (0.2-1.0); CALCIUM LEVEL 9.1 MG/DL (8.5-10.1); CREATININE FOR GFR 1.25 MG/DL (0.55-1.30); FREE T4 1.2 NG/DL (0.76-1.46); GLOMERULAR FILTRATION RATE 47.2 (>51); MAGNESIUM LEVEL 1.7 MG/DL (1.8-2.4); POTASSIUM SERUM 2.8 MEQ/L (3.5-5.1); TOTAL PROTEIN 7.2 GM/DL (6.4-8.2)
[2018-09-28] MEDS ORDERED: POTASSIUM CHLORIDE 10 MEQ SR TABLET PO ONE (08:00)
[2018-09-28] MEDS: ADVAIR HFA 115/21MCG INHALER INH SCH ×2 (08:52→20:51)
[2018-09-28] MEDS: IPRATROPIUM 0.5MG/ALBUTEROL 2.5MG INH SOL UD 3ML (DUONEB)(J7620) NEB PRN ×3 (08:52→22:04)
[2018-09-28] MEDS: ASPIRIN 81 MG ENTERIC TAB PO SCH (09:03)
[2018-09-28] MEDS: FIDAXOMICIN 200 MG TAB (DIFICID) PO SCH ×2 (09:03→21:19)
[2018-09-28] MEDS: CARVedilol 6.25 MG TAB PO SCH ×2 (09:04→21:20)
[2018-09-28] MEDS: TORSEMIDE 20 MG TAB PO SCH ×2 (09:06→17:56)
[2018-09-28] MEDS: PREGABALIN 75 MG CAP(LYRICA) PO SCH ×3 (09:06→21:20)
[2018-09-28] MEDS: FAMOTIDINE 20 MG TAB PO SCH ×2 (09:06→21:19)
[2018-09-28] MEDS: BENZONATATE 100 MG CAP PO PRN ×2 (09:06→17:56)
[2018-09-28] MEDS: metOLazone 2.5 MG TAB PO SCH (09:07)
[2018-09-28] MEDS: HumaLOG INSULIN (NovoLOG) PER UNIT SC SCH ×4 (09:07→21:00)
[2018-09-28] MEDS: PARoxetine 10MG TABLET PO SCH (09:07)
[2018-09-28] MEDS: metFORMIN (GLUCOPHAGE) 1000 MG TABLET PO SCH ×2 (09:07→21:19)
[2018-09-28] MEDS: LEVEMIR (INSULIN DETEMIR) 1 UNITS/0.01ML SC SCH ×2 (09:09→21:18)
[2018-09-28] MEDS: EUCERIN 120GM CREAM TOP SCH ×2 (09:09→21:18)
[2018-09-28] MEDS: ENOXAPARIN 100MG/1ML SYRINGE (J1650) SC SCH ×2 (11:13→21:25)
[2018-09-28] MEDS ORDERED: PPD DOCUMENTATION ENTRY MISC XX ONE (12:00)
--- NOTE | 2018-09-28 12:20 | IPNPDOC ---
Subjective Date Seen The patient was seen on 09/28/18. Subjective Chief Complaint/HPI Patient wants to eat regular floor. She does not wish to eat low carbohydrate diet Very small scant amount of blood and sputum but is still complaining of diarrhea General: Reports: Normal Appetite; Denies: Chills, Night Sweats, Fatigue, Malaise Constitutional: Denies: Chills, Fever, Night Sweats Eyes: Denies: Pain, Vision change ENT: Denies: Head Aches, Ear Pain, Dysphagia Skin: Denies: Rash, Lesions, Breakdown Pulmonary: Reports: Other Symptoms (skin amount of blood and sputum); Denies: Dyspnea, Cough Cardiovascular: Denies: Chest Pain, Palpitations, Orthopnea, Paroxysmal Noc. D yspnea, Lt Headedness Gastrointestinal: Reports: Diarrhea; Denies: Nausea, Vomiting, Abdominal Pain, Constipation Genitourinary: Denies: Dysuria, Frequency, Incontinence, Retention Hematologic: Denies: Bruising, Bleeding Excessively Musculoskeletal: Denies: Neck Pain, Back Pain, Joint Pain, Muscle Pain, Spasms Neurological: Denies: Weakness, Numbness, Change in speech, Confusion Psych: Reports: Mood Normal; Denies: Depression, Memory Issues Objective Physical Examination General Exam: Positive: Alert, No Acute Distress Eye Exam: Positive: PERRLA, Conjunctiva & lids normal, EOMI; Negative: Sclera icteric ENT Exam: Positive: Atraumatic, Mucous membr. moist/pink, Pharynx Normal Neck Exam: Positive: Supple; Negative: JVD, thyromegaly Chest Exam: Positive: Other (decreased breath sounds bilaterally but no audible crackles, rhonchi or wheezing) Heart Exam: Positive: Rate Normal, Regular Rhythm, Normal S1, Normal S2; Negative: Murmurs, Rubs Telemetry: Positive: No significant arrhythmia Abdomen Exam: Positive: Normal bowel sounds, Soft; Negative: Tenderness, Hepatospenomegaly Extremity Exam: Positive: Normal pulses; Negative: Clubbing, Cyanosis, Edema Skin Exam: Positive: Nl turgor and temperature; Negative: Breakdown, Lesion Neuro Exam: Positive: Normal Gait, Normal Speech, Cranial Nerves 3-12 NL, Reflexes 2+ Psych Exam: Positive: Mental status NL, Mood NL, Oriented x 3 Assessment /Plan Problems (1) RLL pneumonia Status: Acute Response to Treatment: Stable Discussed With: Nurse Problem Specific Plan: Monitor Clinically Problem Text: Admit to [facility] floor On IV Zosyn. Will continue continue the same for right lower lobe infiltrate which has not changed from previous chest x-ray Low risk for MRSA, so will not aid vancomycin at the present time DuoNeb every 4 hours when necessary His sputum C&S has been ordered again: Still pending Hemoptysis most likely secondary to supratherapeutic INR, which indicate which is being addressed Hemoptysis nor has resolved, but patient is still expectorating sputum Will monitor clinically for patient's improvement (2) Supratherapeutic INR Status: Resolved Problem Specific Plan: Monitor Clinically Problem Text: Prosthetic mitral wall: Patient is INR is 1.7 today. We'll start Lovenox 1 mg/kg every 12 hours for full anticoagulation. We'll also continue Coumadin 10 mg by mouth daily to get INR in about 3, patient's hemoptysis is resolving, which was most likely secondary to elevated INR (3) Hypothyroid Status: Chronic Problem Text: Continue Synthroid. Probably needs a adjustment in dosage, but can be done as an outpatient (4) Diarrhea Status: Acute Problem Text: Most likely recurrence of C. difficile Start dificle 200 mg by mouth twice a day Stool for C. difficile: resent again DC his stool softeners Oral hydration Contact isolation Plan/VTE VTE Prophylaxis Ordered?: Yes VTE Exclusion Mechanical Proph: Other (supratherapeutic INR) VTE Exclusion Pharmacological: Other (supratherapeutic INR) VS, I&O, 24H, Fishbone Vital Signs/I&O Vital Signs Date Time Temp Pulse Resp B/P (MAP) Pulse Ox O2 Delivery O2 Flow Rate FiO2 09/28/18 09:04 83 118/57 09/28/18 06:00 96.4 20 92 09/24/18 12:35 Room Air I&O- Last 24 Hours up to 6 AM 09/28/18 06:00 Intake Total 2910 ml Output Total 0 ml Balance 2910 ml Laboratory Data 24H LABS Laboratory Tests 2 09/27/18 16:28: Bedside Glucose (Misc Panel) 124H 09/27/18 20:20: Bedside Glucose (Misc Panel) 259H 09/28/18 06:59: Immature Granulocyte % (Auto) 0.7, White Blood Count 5.5, Red Blood Count 4.84, Hemoglobin 10.6L, Hematocrit 36.9, Mean Corpuscular Volume 76.2L, Mean Corpuscular Hemoglobin 21.9L, Mean Corpuscular Hemoglobin Concent 28.7L, Red Cell Distribution Width 20.6H, Platelet Count 275, Neutrophils (%) (Auto) 65.5, Lymphocytes (%) (Auto) 19.4L, Monocytes (%) (Auto) 11.5H, Eosinophils (%) (Auto) 2.4, Basophils (%) (Auto) 0.5, Neutrophils # (Auto) 3.6, Lymphocytes # (Auto) 1.1L, Monocytes # (Auto) 0.6, Eosinophils # (Auto) 0.1, Basophils # (Auto) 0.0, Nucleated Red Blood Cells % (auto) 0.0, Prothrombin Time 20.4H, Prothromb Time International Ratio 1.71, Anion Gap 9, Glomerular Filtration Rate 47.2L, Blood Urea Nitrogen 36H, Creatinine 1.25, Sodium Level 136, Potassium Level 2.8*L, Chloride Level 92L, Carbon Dioxide Level 35H, Calcium Level 9.1, Aspartate Amino Transf (AST/SGOT) 15, Alanine Aminotransferase (ALT/SGPT) 14, Alkaline Phosph atase 268H, Total Bilirubin 0.7, Total Protein 7.2, Albumin 2.4L, Magnesium Level 1.7L, Albumin/Globulin Ratio 0.50L, Free Thyroxine 1.20 09/28/18 11:17: Bedside Glucose (Misc Panel) 332H CBC/BMP Laboratory Tests 09/28/18 06:59 Red Blood Count 4.84, Mean Corpuscular Volume 76.2 L, Mean Corpuscular Hemoglobin 21.9 L, Mean Corpuscular Hemoglobin Concent 28.7 L, Red Cell Distribution Width 20.6 H, Neutrophils (%) (Auto) 65.5, Lymphocytes (%) (Auto) 19.4 L, Monocytes (%) (Auto) 11.5 H, Eosinophils (%) (Auto) 2.4, Basophils (%) (Auto) 0.5, Neutrophils # (Auto) 3.6, Lymphocytes # (Auto) 1.1 L, Monocytes # (Auto) 0.6, Eosinophils # (Auto) 0.1, Basophils # (Auto) 0.0, Calcium Level 9.1, Aspartate Amino Transf (AST/SGOT) 15, Alanine Aminotransferase (ALT/SGPT) 14, Alkaline Phosphatase 268 H, Total Bilirubin 0.7, Total Protein 7.2, Albumin 2.4 L Microbiology Microbiology 09/24/18 Blood Culture - Preliminary, Resulted No Growth after 72 hours. All specime... 09/24/18 Blood Culture - Preliminary, Resulted No Growth after 72 hours. All specime... NAVIN VILLEGAS MD Sep 28, 2018 12:20
[2018-09-28 14:00] VITALS: BP 115/57
[2018-09-28] MEDS: WARFARIN SOD 5 MG TAB PO SCH (17:56)
[2018-09-28] MEDS: zolPIDEM TARTRATE 5 MG TAB PO SCH (21:19)
[2018-09-28] MEDS: ATORVASTATIN 20 MG TAB PO SCH (21:19)
[2018-09-28 22:00] VITALS: BP 152/77
[2018-09-29] MEDS: guaiFENesin DM LIQ 10ML UD PO PRN ×3 (05:45→21:02)
[2018-09-29] MEDS: BENZONATATE 100 MG CAP PO PRN ×3 (05:45→21:02)
[2018-09-29] MEDS: LEVOTHYROXINE 137MCG TABLET (0.137MG) PO SCH (05:45)
[2018-09-29] MEDS: PIPERACILLIN/TAZOBACTAM SOD 3.375 GM in D5W MINI-BAG PLUS 50 ML IV SCH (05:48)
[2018-09-29 06:00] VITALS: BP 136/76
[2018-09-29 07:09] LABS: HEMOGLOBIN 10.5 g/dl (12.0-15.5); MEAN CORPUSCULAR HEMOGLOBIN 21.4 pg (27.0-33.0); MEAN CORPUSCULAR HGB CONC 28.4 g/dl (32.0-36.5); MEAN CORPUSCULAR VOLUME 75.5 fl (80.0-96.0); PLATELET COUNT, AUTOMATED 288 10^3/uL (150-450); WHITE BLOOD COUNT 5.9 10^3/uL (4.0-10.0)
[2018-09-29] MEDS: ADVAIR HFA 115/21MCG INHALER INH SCH ×2 (07:26→20:47)
[2018-09-29] MEDS: IPRATROPIUM 0.5MG/ALBUTEROL 2.5MG INH SOL UD 3ML (DUONEB)(J7620) NEB PRN ×4 (07:27→20:47)
[2018-09-29 07:28] LABS: INR 1.48; PROTHROMBIN TIME 18.2 SECONDS (12.1-14.4)
[2018-09-29 07:45] LABS: ALBUMIN 2.6 GM/DL (3.2-5.2); BILIRUBIN,TOTAL 0.7 MG/DL (0.2-1.0); CALCIUM LEVEL 9.1 MG/DL (8.5-10.1); CREATININE FOR GFR 1.49 MG/DL (0.55-1.30); GLOMERULAR FILTRATION RATE 38.5 (>51); MAGNESIUM LEVEL 1.6 MG/DL (1.8-2.4); POTASSIUM SERUM 3.1 MEQ/L (3.5-5.1); TOTAL PROTEIN 7.7 GM/DL (6.4-8.2)
[2018-09-29] MEDS ORDERED: POTASSIUM CHLORIDE 10 MEQ SR TABLET PO ONE (08:00)
[2018-09-29] MEDS: ENOXAPARIN 100MG/1ML SYRINGE (J1650) SC SCH ×3 (09:00→20:27)
[2018-09-29] MEDS: HumaLOG INSULIN (NovoLOG) PER UNIT SC SCH ×4 (09:14→20:51)
[2018-09-29] MEDS: metFORMIN (GLUCOPHAGE) 1000 MG TABLET PO SCH ×2 (09:15→20:26)
[2018-09-29] MEDS: TORSEMIDE 20 MG TAB PO SCH ×2 (09:15→16:46)
[2018-09-29] MEDS: PARoxetine 10MG TABLET PO SCH (09:15)
[2018-09-29] MEDS: FIDAXOMICIN 200 MG TAB (DIFICID) PO SCH ×2 (09:16→20:26)
[2018-09-29] MEDS: ACETAMINOPHEN TAB 650MG DOSE (2X325MG) PO PRN (09:17)
[2018-09-29] MEDS: metOLazone 2.5 MG TAB PO SCH (09:17)
[2018-09-29] MEDS: FAMOTIDINE 20 MG TAB PO SCH ×2 (09:18→20:26)
[2018-09-29] MEDS: ASPIRIN 81 MG ENTERIC TAB PO SCH (09:18)
[2018-09-29] MEDS: CARVedilol 6.25 MG TAB PO SCH ×2 (09:19→20:27)
[2018-09-29] MEDS: PREGABALIN 75 MG CAP(LYRICA) PO SCH ×3 (09:19→20:26)
[2018-09-29] MEDS: LEVEMIR (INSULIN DETEMIR) 1 UNITS/0.01ML SC SCH ×2 (09:20→20:25)
[2018-09-29] MEDS: EUCERIN 120GM CREAM TOP SCH ×2 (09:20→20:28)
--- NOTE | 2018-09-29 11:33 | IPNPDOC ---
Subjective Date Seen The patient was seen on 09/29/18. Subjective Chief Complaint/HPI No more blood in the sputum. Diarrhea is also resolving. His similar formed stool now General: Reports: Normal Appetite; Denies: Chills, Night Sweats, Fatigue, Malaise Constitutional: Denies: Chills, Fever, Night Sweats Eyes: Denies: Pain, Vision change ENT: Denies: Head Aches, Ear Pain, Dysphagia Skin: Denies: Rash, Lesions, Breakdown Pulmonary: Denies: Dyspnea, Cough Cardiovascular: Denies: Chest Pain, Palpitations, Orthopnea, Paroxysmal Noc. Dyspnea, Lt Headedness Gastrointestinal: Reports: Diarrhea; Denies: Nausea, Vomiting, Abdominal Pain, Constipation Genitourinary: Denies: Dysuria, Frequency, Incontinence, Retention Hematologic: Denies: Bruising, Bleeding Excessively Musculoskeletal: Denies: Neck Pain, Back Pain, Joint Pain, Muscle Pain, Spasms Neurological: Denies: Weakness, Numbness, Change in speech, Confusion Psych: Reports: Mood Normal; Denies: Depression, Memory Issues Objective Physical Examination General Exam: Positive: Alert, No Acute Distress Eye Exam: Positive: PERRLA, Conjunctiva & lids normal, EOMI; Negative: Sclera icteric ENT Exam: Positive: Atraumatic, Mucous membr. moist/pink, Pharynx Normal Neck Exam: Positive: Supple; Negative: JVD, thyromegaly Chest Exam: Positive: Other (decreased breath sounds bilaterally but no audible crackles, rhonchi or wheezing) Heart Exam: Positive: Rate Normal, Regular Rhythm, Normal S1, Normal S2; Negative: Murmurs, Rubs Telemetry: Positive: No significant arrhythmia Abdomen Exam: Positive: Normal bowel sounds, Soft; Negative: Tenderness, Hepatospenomegaly Extremity Exam: Positive: Normal pulses; Negative: Clubbing, Cyanosis, Edema Skin Exam: Positive: Nl turgor and temperature; Negative: Breakdown, Lesion Neuro Exam: Positive: Normal Gait, Normal Speech, Cranial Nerves 3-12 NL, Reflexes 2+ Psych Exam: Positive: Mental status NL, Mood NL, Oriented x 3 Assessment /Plan Problems (1) RLL pneumonia Status: Acute Response to Treatment: Stable Discussed With: Nurse Problem Specific Plan: Monitor Clinically Problem Text: Admit to [facility] floor On IV Zosyn. Patient is currently afebrile with normal white count. I will change antibiotics to by mouth Augmentin, repeat chest x-ray has been ordered to evaluate right lower lobe infiltrate Low risk for MRSA, so will not aid vancomycin at the present time DuoNeb every 4 hours when necessary His sputum C&S has been ordered again: Still pending Hemoptysis most likely secondary to supratherapeutic INR, which indicate which is being addressed Hemoptysis has completely resolved now. Patient INR is subtherapeutic. Hence, she was started on Lovenox 1 mg/kg every 12 hours, please follow INR. Once her INR is between 2.5-3.5 then patient's Lovenox can be DC'd and patient can be discharged home (2) Supratherapeutic INR Status: Resolved Problem Specific Plan: Monitor Clinically Problem Text: Patient is on the Coumadin for mitral prosthesis once INR is between 2.5, 3.5, the Lovenox can be DC'd Supratherapeutic INR, most likely was secondary to multiple factors including o utpatient treatment with dificid (3) Hypothyroid Status: Chronic Problem Text: Continue Synthroid. Probably needs a adjustment in dosage, but can be done as an outpatient (4) Diarrhea Status: Acute Problem Text: Most likely recurrence of C. difficile Assurance. Diarrhea has resolved and the system. I solid stools at present Start dificle 200 mg by mouth twice a day Spoke with the nursing, we will resend stool for C. difficile is negative. Please DC deficid Plan/VTE VTE Prophylaxis Ordered?: Yes VTE Exclusion Mechanical Proph: Other (supratherapeutic INR) VTE Exclusion Pharmacological: Other (supratherapeutic INR) VS, I&O, 24H, Fishbone Vital Signs/I&O Vital Signs Date Time Temp Pulse Resp B/P (MAP) Pulse Ox O2 Delivery O2 Flow Rate FiO2 09/29/18 09:19 85 136/76 09/29/18 06:00 96.2 19 97 09/24/18 12:35 Room Air I&O- Last 24 Hours up to 6 AM 09/29/18 06:00 Intake Total 2260 ml Output Total 1800 ml Balance 460 ml Laboratory Data 24H LABS Laboratory Tests 2 09/28/18 11:17: Bedside Glucose (Misc Panel) 332H 09/28/18 16:19: Bedside Glucose (Misc Panel) 144H 09/28/18 20:45: Bedside Glucose (Misc Panel) 230H 09/29/18 06:32: Nucleated Red Blood Cells % (auto) 0.0, Prothrombin Time 18.2H, Prothromb Time International Ratio 1.48, Anion Gap 7L, Glomerular Filtration Rate 38.5L, Blood Urea Nitrogen 41H, Creatinine 1.49H, Sodium Level 136, Potassium Level 3.1L, Chloride Level 93L, Carbon Dioxide Level 36H, Calcium Level 9.1, Aspartate Amino Transf (AST/SGOT) 17, Alanine Aminotransferase (ALT/SGPT) 16, Alkaline Phosphatase 265H, Total Bilirubin 0.7, Total Protein 7.7, Albumin 2.6L, Magnesium Level 1.6L, Albumin/Globulin Ratio 0.51L CBC/BMP Laboratory Tests 09/29/18 06:32 Red Blood Count 4.90, Mean Corpuscular Volume 75.5 L, Mean Corpuscular Hemoglobin 21.4 L, Mean Corpuscular Hemoglobin Concent 28.4 L, Red Cell Distribution Width 20.8 H, Calcium Level 9.1, Aspartate Amino Transf (AST/SGOT) 17, Alanine Aminotransferase (ALT/SGPT) 16, Alkaline Phosphatase 265 H, Total Bilirubin 0.7, Total Protein 7.7, Albumin 2.6 L Microbiology Microbiology 09/24/18 Blood Culture - Final, Complete NO GROWTH AFTER 5 DAYS 09/24/18 Blood Culture - Final, Complete NO GROWTH AFTER 5 DAYS NAVIN VILLEGAS MD Sep 29, 2018 11:33
[2018-09-29] MEDS: AUGMENTIN 875 MG TAB GT SCH ×2 (12:20→20:26)
[2018-09-29 13:41] LABS: CLOSTRIDIUM DIFFICILE PCR NEGATIVE (NEGATIVE)
[2018-09-29 14:00] VITALS: BP 143/65
[2018-09-29] MEDS: WARFARIN SOD 5 MG TAB PO SCH (16:46)
[2018-09-29] MEDS: zolPIDEM TARTRATE 5 MG TAB PO SCH (20:26)
[2018-09-29] MEDS: ATORVASTATIN 20 MG TAB PO SCH (20:26)
[2018-09-29 22:00] VITALS: BP 144/68
[2018-09-30] MEDS: BENZONATATE 100 MG CAP PO PRN ×3 (05:10→21:20)
[2018-09-30] MEDS: LEVOTHYROXINE 137MCG TABLET (0.137MG) PO SCH (05:10)
[2018-09-30] MEDS: guaiFENesin DM LIQ 10ML UD PO PRN ×3 (05:10→21:20)
[2018-09-30 06:00] VITALS: BP 111/54
[2018-09-30 06:26] LABS: HEMATOCRIT 35.9 % (36.0-47.0); HEMOGLOBIN 10.2 g/dl (12.0-15.5); MEAN CORPUSCULAR HEMOGLOBIN 21.7 pg (27.0-33.0); MEAN CORPUSCULAR HGB CONC 28.4 g/dl (32.0-36.5); MEAN CORPUSCULAR VOLUME 76.5 fl (80.0-96.0); PLATELET COUNT, AUTOMATED 273 10^3/uL (150-450); RED BLOOD COUNT 4.69 10^6/uL (4.00-5.40); WHITE BLOOD COUNT 6.2 10^3/uL (4.0-10.0)
[2018-09-30 06:41] LABS: ALBUMIN 2.4 GM/DL (3.2-5.2); BILIRUBIN,TOTAL 0.5 MG/DL (0.2-1.0); CREATININE FOR GFR 1.4 MG/DL (0.55-1.30); GLOMERULAR FILTRATION RATE 41.4 (>51); POTASSIUM SERUM 3.5 MEQ/L (3.5-5.1); TOTAL PROTEIN 7.2 GM/DL (6.4-8.2)
[2018-09-30 06:45] LABS: INR 1.6; PROTHROMBIN TIME 19.3 SECONDS (12.1-14.4)
--- NOTE | 2018-09-30 07:54 | IPN ---
DATE: 09/30/2018 Jenny is seen while rounding for the hospitalist. She was admitted with pneumonia. Transitioned to oral antibiotic Augmentin yesterday. Denies any significant cough, fever, or shortness of breath. She has a mechanical mitral heart valve. INR is subtherapeutic. She is on Lovenox so INR rises. She has had a history of recurrent C difficile colitis and is on Dificid waiting for results of a stool for C difficile. The patient tells me that was sent yesterday but is not resulted yet. INR is still therapeutic. PHYSICAL EXAMINATION: Afebrile, blood pressure 111/54, pulse 59, respiratory rate 19, 100% oxygen saturation. General appearance: Resting comfortably in no distress. HEENT: Unremarkable. Normal sclera. Heart regular rhythm with a crisp prosthetic click. Lungs clear. Abdomen soft, nontender. No masses. No peripheral edema. LABS: White count 6.2, hemoglobin 10.2, platelets 273. Sodium 136, potassium 3.5, BUN 43, creatinine 1.4, glucose 269. Correction: Stool for C difficile has resulted, it is just in the serology section of the labs instead of microbiology where it is usually placed. It was negative. INR today is 1.6, blood sugars have been 200-300. IMPRESSION: 1. Right lower lobe pneumonia: Repeat chest x-ray was ordered. Results are pending. She is on Augmentin. Clinically, she is improved so I am not sure I would change treatment based on the results of that chest x-ray. 2. Mitral valve replaced by mechanical heart valve with subtherapeutic INR. INR is still subtherapeutic due to Lovenox until INR is 2.5-3.5. 3. Hypothyroidism: Continue dose of levothyroxine. 4. Diarrhea: C difficile was negative so we can discontinue the Dificid per 09/29/[address] Victoria. 5. Diabetes: Will increase her Levemir in response to the hyperglycemia. 6. History of depression: Continue paroxetine 10 mg daily and Ambien for sleep. 7. Hyperlipidemia: Continue atorvastatin 80 mg nightly. 8. Hypertensive heart disease: Continue her carvedilol 6.25 mg twice a day
[2018-09-30] MEDS: ADVAIR HFA 115/21MCG INHALER INH SCH ×2 (07:59→20:52)
[2018-09-30] MEDS: ENOXAPARIN 100MG/1ML SYRINGE (J1650) SC SCH ×2 (08:30→21:00)
[2018-09-30] MEDS: TORSEMIDE 20 MG TAB PO SCH ×2 (08:30→16:34)
[2018-09-30] MEDS: PARoxetine 10MG TABLET PO SCH (08:31)
[2018-09-30] MEDS: FAMOTIDINE 20 MG TAB PO SCH ×2 (08:31→21:20)
[2018-09-30] MEDS: metFORMIN (GLUCOPHAGE) 1000 MG TABLET PO SCH ×2 (08:31→21:25)
[2018-09-30] MEDS: POTASSIUM CHLORIDE 10 MEQ SR TABLET PO SCH ×2 (08:31→21:20)
[2018-09-30] MEDS: AUGMENTIN 875 MG TAB GT SCH ×2 (08:31→21:20)
[2018-09-30] MEDS: PREGABALIN 75 MG CAP(LYRICA) PO SCH ×3 (08:32→21:20)
[2018-09-30] MEDS: CARVedilol 6.25 MG TAB PO SCH ×2 (08:32→21:24)
[2018-09-30] MEDS: ASPIRIN 81 MG ENTERIC TAB PO SCH (08:32)
[2018-09-30] MEDS: metOLazone 2.5 MG TAB PO SCH (08:33)
[2018-09-30] MEDS: HumaLOG INSULIN (NovoLOG) PER UNIT SC SCH ×4 (08:34→21:25)
[2018-09-30] MEDS: LEVEMIR (INSULIN DETEMIR) 1 UNITS/0.01ML SC SCH ×2 (08:35→21:26)
[2018-09-30] MEDS: EUCERIN 120GM CREAM TOP SCH ×2 (08:35→21:27)
--- NOTE | 2018-09-30 10:10 | REP ---
Portable chest x-ray: Single view. History: Right lower lobe pneumonia. Comparison study: September 26, 2018. Findings: There is persistent opacity in the right infrahilar region. This may be a little less prominent. There is discoid atelectasis along the left heart border. Vascular cephalization is seen. Mildly prominent heart with pacemaker and prior sternotomy wires. Impression: Persistent opacification right base consistent with gradually improving right base pneumonia. Discoid atelectasis along the left heart border. Electronically Signed by Reymundo Jay MD 09/30/2018 10:27 A
[2018-09-30 14:00] VITALS: BP 108/61
[2018-09-30] MEDS: WARFARIN SOD 5 MG TAB PO SCH (16:33)
[2018-09-30] MEDS: IPRATROPIUM 0.5MG/ALBUTEROL 2.5MG INH SOL UD 3ML (DUONEB)(J7620) NEB PRN (20:51)
[2018-09-30] MEDS: zolPIDEM TARTRATE 5 MG TAB PO SCH (21:20)
[2018-09-30] MEDS: ATORVASTATIN 20 MG TAB PO SCH (21:25)
[2018-09-30 22:00] VITALS: BP 156/72
[2018-10-01] MEDS: LEVOTHYROXINE 137MCG TABLET (0.137MG) PO SCH (05:35)
[2018-10-01] MEDS: guaiFENesin DM LIQ 10ML UD PO PRN ×3 (05:35→21:59)
[2018-10-01] MEDS: BENZONATATE 100 MG CAP PO PRN ×3 (05:35→21:59)
[2018-10-01 06:00] VITALS: BP 108/60
[2018-10-01 07:05] LABS: HEMATOCRIT 37.5 % (36.0-47.0); HEMOGLOBIN 10.5 g/dl (12.0-15.5); MEAN CORPUSCULAR HEMOGLOBIN 21.7 pg (27.0-33.0); MEAN CORPUSCULAR VOLUME 77.5 fl (80.0-96.0); PLATELET COUNT, AUTOMATED 264 10^3/uL (150-450); RED BLOOD COUNT 4.84 10^6/uL (4.00-5.40); WHITE BLOOD COUNT 6.6 10^3/uL (4.0-10.0)
[2018-10-01 07:16] LABS: INR 1.64; PROTHROMBIN TIME 19.7 SECONDS (12.1-14.4)
[2018-10-01 07:26] LABS: CALCIUM LEVEL 8.8 MG/DL (8.5-10.1); CREATININE FOR GFR 1.38 MG/DL (0.55-1.30); GLOMERULAR FILTRATION RATE 42.1 (>51); MAGNESIUM LEVEL 1.7 MG/DL (1.8-2.4); POTASSIUM SERUM 3.7 MEQ/L (3.5-5.1)
[2018-10-01] MEDS: ADVAIR HFA 115/21MCG INHALER INH SCH ×2 (07:37→19:39)
[2018-10-01] MEDS: ASPIRIN 81 MG ENTERIC TAB PO SCH (08:54)
[2018-10-01] MEDS: HumaLOG INSULIN (NovoLOG) PER UNIT SC SCH ×4 (08:54→21:00)
[2018-10-01] MEDS: PREGABALIN 75 MG CAP(LYRICA) PO SCH ×3 (08:55→21:59)
[2018-10-01] MEDS: POTASSIUM CHLORIDE 10 MEQ SR TABLET PO SCH ×2 (08:55→21:59)
[2018-10-01] MEDS: CARVedilol 6.25 MG TAB PO SCH ×2 (08:55→22:03)
[2018-10-01] MEDS: TORSEMIDE 20 MG TAB PO SCH ×2 (08:55→17:08)
[2018-10-01] MEDS: metFORMIN (GLUCOPHAGE) 1000 MG TABLET PO SCH ×2 (08:56→21:59)
[2018-10-01] MEDS: AUGMENTIN 875 MG TAB GT SCH ×2 (08:56→22:00)
[2018-10-01] MEDS: PARoxetine 10MG TABLET PO SCH (08:56)
[2018-10-01] MEDS: ENOXAPARIN 100MG/1ML SYRINGE (J1650) SC SCH ×2 (08:57→22:01)
[2018-10-01] MEDS: EUCERIN 120GM CREAM TOP SCH ×2 (08:57→22:01)
[2018-10-01] MEDS: FAMOTIDINE 20 MG TAB PO SCH ×2 (09:03→21:59)
[2018-10-01] MEDS: metOLazone 2.5 MG TAB PO SCH (09:04)
[2018-10-01] MEDS: LEVEMIR (INSULIN DETEMIR) 1 UNITS/0.01ML SC SCH ×2 (09:04→22:00)
[2018-10-01 14:00] VITALS: BP 122/55
--- NOTE | 2018-10-01 14:17 | IPNPDOC ---
Date Seen The patient was seen on 10/01/18. Progress Note SUBJECTIVE: Patient reports she is feeling somewhat better today but she continues to have watery diarrhea and sometimes cannot make it to the bathroom. She also noticed she is coughing. She was having some scant hemoptysis yesterday but this has resolved. Today she is coughing up thick white sputum. She states that the breathing treatments are helping improve her respiratory issues. Otherwise she has several questions about why her INR is not yet therapeutic and whether her medication doses need to be changed. OBJECTIVE PHYSICAL EXAMINATION: VITAL SIGNS: Please see below. GENERAL: sitting on edge of bed, calm, cooperative, no acute distress HEENT: moist mucus membranes, EOMI, no thyromegaly CARDIOVASCULAR: normal S1, very prominent S2, RRR, no murmurs/rubs/gallops RESPIRATORY: somewhat decreased breath sounds at R base, otherwise good air movement without any adventitious breath sounds appreciated ABDOMINAL: soft, nontender to palpation, +BS, no masses or organomegaly BACK: healed pressure ulcer on mid back and upper buttocks, some scaling of skin but no erythema EXTREMITIES: trace edema bilaterally NEUROLOGICAL: CN 2-12 intact without any focal deficits PSYCHOLOGICAL: normal mood/affect, very talkative, AAOx3 LABORATORY DATA, IMAGING STUDIES, MICROBIOLOGY: Please see below. Echocardiogram: 11/2017 1. Normal left ventricle internal dimensions and wall thickness. Probably normal regional left ventricular (LV) wall motion and wall thickening. Left ventricle ejection fraction 60% by visual estimate. Unable to assess LV diastolic function in the setting of atrial fibrillation and mechanical mitral valve. 2. Well seated and normally functioning mechanical aortic valve. No mitral regurgitation or mitral stenosis. 3. Moderate left atrial dilatation. 4. Suggestive of moderate elevation of estimated right ventricle systolic pressure. 5. Presence of cardiac rhythm management leads identified in the right atrium and right ventricle. DVT prophylaxis ordered?: Patient is on Coumadin ASSESSMENT AND PLAN: This is a 58 YO F with history CAD, CHF and DM2 who presented with SOB and diarrhea found to have RLL PNA, C. dif, and elevated INR PROBLEMS: 1. RLL PNA: She continues to report some shortness of breath and productive cough, but overall improvement since admission -Afebrile with VSS during this admission -WBC WNL -CXR yesterday demonstrated improvement in PNA -No growth on blood cultures x2 -s/p Zosyn. Transitioned to Augmentin PO (day 3 of 5) -Continue DuoNebs and Albuterol inhaler 2. Recent history of C.dif diarrhea: -s/p course of Dificid -Patient continues to have watery diarrhea. Will continue to monitor 3. Supratherapeutic INR: -Plan to bridge with Lovenox -Continue Coumadin 10mg 4. History of mitral valve replacement: stable -INR goal 2.5 5. History of CHF: -Continue Demadex 6. Hypothyroidism: -Continue Synthroid 7. Hyperlipidemia: -Continue Atorvastatin 8. DM2: -SSI with hypoglycemic protocol 9. Chronic pain: -Continue Lyrica DISPOSITION: pending clinical improvement VS, I&O, 24H, Fishbone Vital Signs/I&O Vital Signs Date Time Temp Pulse Resp B/P (MAP) Pulse Ox O2 Delivery O2 Flow Rate FiO2 10/01/18 08:55 89 108/60 10/01/18 06:00 98.3 18 97 I&O- Last 24 Hours up to 6 AM 10/01/18 06:00 Intake Total 1560 ml Output Total 1000 ml Balance 560 ml Laboratory Data 24H LABS Laboratory Tests 2 09/30/18 16:25: Bedside Glucose (Misc Panel) 189H 09/30/18 19:58: Bedside Glucose (Misc Panel) 268H 10/01/18 06:47: Nucleated Red Blood Cells % (auto) 0.0, Prothrombin Time 19.7H, Prothromb Time International Ratio 1.64, Anion Gap 7L, Glomerular Filtration Rate 42.1L, Blood Urea Nitrogen 46H, Creatinine 1.38H, Sodium Level 136, Potassium Level 3.7, Chloride Level 95L, Carbon Dioxide Level 34H, Calcium Level 8.8, Magnesium Level 1.7L 10/01/18 11:16: Bedside Glucose (Misc Panel) 358H CBC/BMP Laboratory Tests 10/01/18 06:47 Red Blood Count 4.84, Mean Corpuscular Volume 77.5 L, Mean Corpuscular Hemoglobin 21.7 L, Mean Corpuscular Hemoglobin Concent 28.0 L, Red Cell Distribution Width 20.8 H, Calcium Level 8.8 Microbiology Microbiology 09/24/18 Blood Culture - Final, Complete NO GROWTH AFTER 5 DAYS 09/24/18 Blood Culture - Final, Complete NO GROWTH AFTER 5 DAYS GME ATTESTATION GME ATTESTATION My faculty preceptor for this patient encounter was physically present during the encounter and was fully available. All aspects of the patient interview, examination, medical decision making process, and medical care plan development were reviewed and approved by the faculty preceptor. The faculty preceptor is aware and concurs with the plan as stated in the body of this note and will atte st to such by his/her cosignature. MEIR NÚÑEZ MD Oct 01, 2018 14:17
[2018-10-01] MEDS: WARFARIN SOD 5 MG TAB PO SCH (17:28)
[2018-10-01] MEDS ORDERED: ENOXAPARIN 120 MG/0.8 ML SYR (J1650) SC SCH (21:00)
[2018-10-01] MEDS: ATORVASTATIN 20 MG TAB PO SCH (21:59)
[2018-10-01 22:00] VITALS: BP 135/68
[2018-10-01] MEDS: zolPIDEM TARTRATE 5 MG TAB PO SCH (22:00)
[2018-10-02] MEDS: LEVOTHYROXINE 137MCG TABLET (0.137MG) PO SCH (05:44)
[2018-10-02] MEDS: BENZONATATE 100 MG CAP PO PRN ×2 (05:46→17:18)
[2018-10-02 06:00] VITALS: BP 142/71
[2018-10-02 06:32] LABS: INR 1.86; PROTHROMBIN TIME 21.8 SECONDS (12.1-14.4)
[2018-10-02 06:40] LABS: CALCIUM LEVEL 8.8 MG/DL (8.5-10.1); CREATININE FOR GFR 1.36 MG/DL (0.55-1.30); GLOMERULAR FILTRATION RATE 42.8 (>51); MAGNESIUM LEVEL 1.5 MG/DL (1.8-2.4); POTASSIUM SERUM 3.8 MEQ/L (3.5-5.1)
[2018-10-02] MEDS: ADVAIR HFA 115/21MCG INHALER INH SCH ×2 (07:17→20:39)
[2018-10-02] MEDS ORDERED: MAG SULF 1GM/100ML (MAG RUN) 1 GM in APPROPRIATE DILUENT 1 EA IV ONE ×2 (07:30→11:45)
[2018-10-02] MEDS: LEVEMIR (INSULIN DETEMIR) 1 UNITS/0.01ML SC SCH ×2 (08:15→20:22)
[2018-10-02] MEDS: HumaLOG INSULIN (NovoLOG) PER UNIT SC SCH ×4 (08:15→20:24)
[2018-10-02] MEDS: PREGABALIN 75 MG CAP(LYRICA) PO SCH ×3 (08:16→20:23)
[2018-10-02] MEDS: PARoxetine 10MG TABLET PO SCH (08:16)
[2018-10-02] MEDS: ASPIRIN 81 MG ENTERIC TAB PO SCH (08:16)
[2018-10-02] MEDS: TORSEMIDE 20 MG TAB PO SCH ×2 (08:16→17:17)
[2018-10-02] MEDS: metFORMIN (GLUCOPHAGE) 1000 MG TABLET PO SCH ×2 (08:16→20:23)
[2018-10-02] MEDS: CARVedilol 6.25 MG TAB PO SCH ×2 (08:16→20:23)
[2018-10-02] MEDS: metOLazone 2.5 MG TAB PO SCH (08:16)
[2018-10-02] MEDS: ENOXAPARIN 100MG/1ML SYRINGE (J1650) SC SCH ×2 (08:17→20:22)
[2018-10-02] MEDS: POTASSIUM CHLORIDE 10 MEQ SR TABLET PO SCH ×2 (08:17→20:23)
[2018-10-02] MEDS: AUGMENTIN 875 MG TAB GT SCH ×2 (08:17→20:22)
[2018-10-02] MEDS: EUCERIN 120GM CREAM TOP SCH ×2 (08:17→20:25)
[2018-10-02] MEDS: FAMOTIDINE 20 MG TAB PO SCH ×2 (08:17→20:23)
--- NOTE | 2018-10-02 11:37 | IPNPDOC ---
Date Seen The patient was seen on 10/02/18. Progress Note SUBJECTIVE: Patient is observed laying comfortably in bed this morning. She states her diarrhea has improved to formed stools this morning. Her breathing has improved but she still has some scant hemoptysis (due to supratherapeutic INR due to coumadin use) which she saves on a napkin to show the staff. Otherwise she has no other complaints. OBJECTIVE PHYSICAL EXAMINATION: VITAL SIGNS: Please see below. GENERAL: sitting on edge of bed, calm, cooperative, no acute distress HEENT: moist mucus membranes, EOMI, no thyromegaly CARDIOVASCULAR: normal S1, very prominent S2, RRR, no murmurs/rubs/gallops RESPIRATORY: somewhat decreased breath sounds at R base, otherwise good air movement without any adventitious breath sounds appreciated ABDOMINAL: soft, nontender to palpation, +BS, no masses or organomegaly BACK: healed pressure ulcer on mid back and upper buttocks, some scaling of skin but no erythema EXTREMITIES: trace edema bilaterally NEUROLOGICAL: CN 2-12 intact without any focal deficits PSYCHOLOGICAL: normal mood/affect, very talkative, AAOx3 LABORATORY DATA, IMAGING STUDIES, MICROBIOLOGY: Please see below. Echocardiogram: 11/2017 1. Normal left ventricle internal dimensions and wall thickness. Probably normal regional left ventricular (LV) wall motion and wall thickening. Left ventricle ejection fraction 60% by visual estimate. Unable to assess LV diastolic function in the setting of atrial fibrillation and mechanical mitral valve. 2. Well seated and normally functioning mechanical aortic valve. No mitral regurgitation or mitral stenosis. 3. Moderate left atrial dilatation. 4. Suggestive of moderate elevation of estimated right ventricle systolic pressure. 5. Presence of cardiac rhythm management leads identified in the right atrium and right ventricle. DVT prophylaxis ordered?: Patient is on Coumadin ASSESSMENT AND PLAN: This is a 58 YO F with history CAD, CHF and DM2 who presented with SOB and diarrhea found to have RLL PNA, C. dif, and elevated INR PROBLEMS: 1. RLL PNA: She continues to report some shortness of breath and productive cough, but overall improvement since admission -Afebrile with VSS during this admission -WBC WNL -No growth on blood cultures x2 -s/p Zosyn. Transitioned to Augmentin PO (day 4 of 5) -Continue DuoNebs and Albuterol inhaler -Hemoptysis due to supratherapeutic INR due to coumadin use noted. This is a known issue. 2. History of C.dif diarrhea: -s/p course of Dificid -Diarrhea is improving 3. Supratherapeutic INR: -Plan to bridge with Lovenox -Increased Coumadin to 15mg QD 4. History of mitral valve replacement: stable -INR goal 2.5 5. History of CHF: -Continue Demadex 6. Hypothyroidism: -Continue Synthroid 7. Hyperlipidemia: -Continue Atorvastatin 8. DM2: -SSI with hypoglycemic protocol 9. Chronic pain: -Continue Lyrica DISPOSITION: pending clinical improvement VS, I&O, 24H, Fishbone Vital Signs/I&O Vital Signs Date Time Temp Pulse Resp B/P (MAP) Pulse Ox O2 Delivery O2 Flow Rate FiO2 10/02/18 08:16 86 142/71 10/02/18 06:00 96.8 19 98 I&O- Last 24 Hours up to 6 AM 10/02/18 06:00 Intake Total 2760 ml Output Total 3000 ml Balance -240 ml Laboratory Data 24H LABS Laboratory Tests 2 10/01/18 11:16: Bedside Glucose (Misc Panel) 358H 10/01/18 16:38: Bedside Glucose (Misc Panel) 229H 10/01/18 20:21: Bedside Glucose (Misc Panel) 198H 10/02/18 05:42: Prothrombin Time 21.8H, Prothromb Time International Ratio 1.86, Anion Gap 7L, Glomerular Filtration Rate 42.8L, Blood Urea Nitrogen 48H, Creatinine 1.36H, Sodium Level 136, Potassium Level 3.8, Chloride Level 96L, Carbon Dioxide Level 33H, Calcium Level 8.8, Magnesium Level 1.5L CBC/BMP Laboratory Tests 10/02/18 05:42 Calcium Level 8.8 Microbiology Microbiology 09/24/18 Blood Culture - Final, Complete NO GROWTH AFTER 5 DAYS 09/24/18 Blood Culture - Final, Complete NO GROWTH AFTER 5 DAYS GME ATTESTATION GME ATTESTATION My faculty preceptor for this patient encounter was physically present during t he encounter and was fully available. All aspects of the patient interview, examination, medical decision making process, and medical care plan development were reviewed and approved by the faculty preceptor. The faculty preceptor is aware and concurs with the plan as stated in the body of this note and will attest to such by his/her cosignature. MEIR NÚÑEZ MD Oct 02, 2018 10:47
[2018-10-02] MEDS: WARFARIN SOD 5 MG TAB PO SCH (17:17)
[2018-10-02] MEDS: guaiFENesin DM LIQ 10ML UD PO PRN (17:18)
[2018-10-02] MEDS: zolPIDEM TARTRATE 5 MG TAB PO SCH (20:23)
[2018-10-02] MEDS: ATORVASTATIN 20 MG TAB PO SCH (20:23)
[2018-10-02 22:00] VITALS: BP 158/94
[2018-10-03] MEDS: LEVOTHYROXINE 137MCG TABLET (0.137MG) PO SCH (05:59)
[2018-10-03 06:00] VITALS: BP 131/79
[2018-10-03] MEDS: guaiFENesin DM LIQ 10ML UD PO PRN ×3 (06:03→21:23)
[2018-10-03] MEDS: ADVAIR HFA 115/21MCG INHALER INH SCH ×2 (06:04→19:53)
[2018-10-03 06:59] LABS: INR 2.17; PROTHROMBIN TIME 24.6 SECONDS (12.1-14.4)
[2018-10-03 07:06] LABS: CALCIUM LEVEL 9.2 MG/DL (8.5-10.1); CREATININE FOR GFR 1.52 MG/DL (0.55-1.30); GLOMERULAR FILTRATION RATE 37.7 (>51); MAGNESIUM LEVEL 1.8 MG/DL (1.8-2.4); POTASSIUM SERUM 3.8 MEQ/L (3.5-5.1)
[2018-10-03] MEDS: EUCERIN 120GM CREAM TOP SCH ×2 (09:00→21:25)
[2018-10-03] MEDS: HumaLOG INSULIN (NovoLOG) PER UNIT SC SCH ×4 (09:18→21:00)
[2018-10-03] MEDS: LEVEMIR (INSULIN DETEMIR) 1 UNITS/0.01ML SC SCH ×2 (09:18→21:24)
[2018-10-03] MEDS: metFORMIN (GLUCOPHAGE) 1000 MG TABLET PO SCH ×2 (09:19→21:22)
[2018-10-03] MEDS: metOLazone 2.5 MG TAB PO SCH (09:19)
[2018-10-03] MEDS: ASPIRIN 81 MG ENTERIC TAB PO SCH (09:19)
[2018-10-03] MEDS: PARoxetine 10MG TABLET PO SCH (09:19)
[2018-10-03] MEDS: CARVedilol 6.25 MG TAB PO SCH ×2 (09:20→21:22)
[2018-10-03] MEDS: BENZONATATE 100 MG CAP PO PRN (09:20)
[2018-10-03] MEDS: FAMOTIDINE 20 MG TAB PO SCH ×2 (09:20→21:24)
[2018-10-03] MEDS: TORSEMIDE 20 MG TAB PO SCH ×2 (09:20→16:43)
[2018-10-03] MEDS: POTASSIUM CHLORIDE 10 MEQ SR TABLET PO SCH ×2 (09:20→21:24)
[2018-10-03] MEDS: AUGMENTIN 875 MG TAB GT SCH ×2 (09:20→21:23)
[2018-10-03] MEDS: PREGABALIN 75 MG CAP(LYRICA) PO SCH ×3 (09:20→21:23)
[2018-10-03] MEDS: ENOXAPARIN 100MG/1ML SYRINGE (J1650) SC SCH ×2 (09:21→21:24)
--- NOTE | 2018-10-03 10:36 | IPNPDOC ---
Date Seen The patient was seen on 10/03/18. Progress Note SUBJECTIVE: Patient states she is feeling well this morning. Diarrhea has improved, and nearly resolved. Coughing has improved and she is not having any SOB. She was able to go tour [facility] yesterday for consideration of moving there after discharge. Otherwise, no overnight events or complaints. OBJECTIVE PHYSICAL EXAMINATION: VITAL SIGNS: Please see below. GENERAL: sitting on edge of bed, calm, cooperative, no acute distress HEENT: moist mucus membranes, EOMI, no thyromegaly CARDIOVASCULAR: normal S1, very prominent S2, RRR, no murmurs/rubs/gallops RESPIRATORY: good air movement without any adventitious breath sounds appreciated ABDOMINAL: soft, nontender to palpation, +BS, no masses or organomegaly BACK: healed pressure ulcer on mid back and upper buttocks, some scaling of skin but no erythema EXTREMITIES: trace edema bilaterally NEUROLOGICAL: CN 2-12 intact without any focal deficits PSYCHOLOGICAL: normal mood/affect, very talkative, AAOx3 LABORATORY DATA, IMAGING STUDIES, MICROBIOLOGY: Please see below. Echocardiogram: 11/2017 1. Normal left ventricle internal dimensions and wall thickness. Probably normal regional left ventricular (LV) wall motion and wall thickening. Left ventricle ejection fraction 60% by visual estimate. Unable to assess LV diastolic function in the setting of atrial fibrillation and mechanical mitral valve. 2. Well seated and normally functioning mechanical aortic valve. No mitral regurgitation or mitral stenosis. 3. Moderate left atrial dilatation. 4. Suggestive of moderate elevation of estimated right ventricle systolic pressure. 5. Presence of cardiac rhythm management leads identified in the right atrium and right ventricle. DVT prophylaxis ordered?: Patient is on Coumadin ASSESSMENT AND PLAN: This is a 58 YO F with history CAD, CHF and DM2 who presented with SOB and diarrhea found to have RLL PNA, C. dif, and elevated INR PROBLEMS: 1. RLL PNA: SOB improved with some cough that is improving with breathing treatments -Afebrile with VSS during this admission -WBC WNL -No growth on blood cultures x2 -s/p Zosyn. Transitioned to Augmentin PO (day 5 of 5) -Continue DuoNebs and Albuterol inhaler -Scant hemoptysis due to supratherapeutic INR due to coumadin use noted. This is a known issue. 2. History of C.dif diarrhea: -s/p course of Dificid -Diarrhea is improving 3. Supratherapeutic INR: Improving. INR today 2.17 -Plan to bridge with Lovenox -Increased Coumadin to 15mg QD 4. History of mitral valve replacement: stable -INR goal 2.5 5. History of CHF: -Continue Demadex 6. Hypothyroidism: -Continue Synthroid 7. Hyperlipidemia: -Continue Atorvastatin 8. DM2: -SSI with hypoglycemic protocol 9. Chronic pain: -Continue Lyrica DISPOSITION: anticipate discharge within 48H VS, I&O, 24H, Fishbone Vital Signs/I&O Vital Signs Date Time Temp Pulse Resp B/P (MAP) Pulse Ox O2 Delivery O2 Flow Rate FiO2 10/03/18 09:20 88 133/65 10/03/18 06:00 97.8 19 98 I&O- Last 24 Hours up to 6 AM 10/03/18 06:00 Intake Total 3300 ml Output Total 1900 ml Balance 1400 ml Laboratory Data 24H LABS Laboratory Tests 2 10/02/18 15:43: Bedside Glucose (Misc Panel) 107H 10/02/18 20:04: Bedside Glucose (Misc Panel) 179H 10/03/18 06:28: Prothrombin Time 24.6H, Prothromb Time International Ratio 2.17, Anion Gap 8, Glomerular Filtration Rate 37.7L, Blood Urea Nitrogen 52H, Creatinine 1.52H, Sodium Level 134L, Potassium Level 3.8, Chloride Level 94L, Carbon Dioxide Level 32, Calcium Level 9.2, Magnesium Level 1.8 CBC/BMP Laboratory Tests 10/03/18 06:28 Calcium Level 9.2 Microbiology Microbiology 09/24/18 Blood Culture - Final, Complete NO GROWTH AFTER 5 DAYS 09/24/18 Blood Culture - Final, Complete NO GROWTH AFTER 5 DAYS GME ATTESTATION GME ATTESTATION My faculty preceptor for this patient encounter was physically present during the encounter and was fully available. All aspects of the patient interview, ex amination, medical decision making process, and medical care plan development were reviewed and approved by the faculty preceptor. The faculty preceptor is aware and concurs with the plan as stated in the body of this note and will attest to such by his/her cosignature. MEIR NÚÑEZ MD Oct 03, 2018 10:36
[2018-10-03 14:00] VITALS: BP 91/56
[2018-10-03 16:42] VITALS: BP 109/60
[2018-10-03] MEDS: WARFARIN SOD 5 MG TAB PO SCH (16:44)
[2018-10-03] MEDS: ATORVASTATIN 20 MG TAB PO SCH (21:22)
[2018-10-03] MEDS: zolPIDEM TARTRATE 5 MG TAB PO SCH (21:23)
[2018-10-03 22:00] VITALS: BP 142/93
[2018-10-04 02:10] VITALS: BP 133/78
[2018-10-04 06:00] VITALS: BP 133/77
[2018-10-04] MEDS: guaiFENesin DM LIQ 10ML UD PO PRN ×2 (06:00→15:20)
[2018-10-04] MEDS: LEVOTHYROXINE 137MCG TABLET (0.137MG) PO SCH (06:00)
[2018-10-04 07:09] LABS: HEMATOCRIT 36.5 % (36.0-47.0); HEMOGLOBIN 10.3 g/dl (12.0-15.5); MEAN CORPUSCULAR HEMOGLOBIN 21.9 pg (27.0-33.0); MEAN CORPUSCULAR HGB CONC 28.2 g/dl (32.0-36.5); MEAN CORPUSCULAR VOLUME 77.5 fl (80.0-96.0); PLATELET COUNT, AUTOMATED 222 10^3/uL (150-450); RED BLOOD COUNT 4.71 10^6/uL (4.00-5.40); WHITE BLOOD COUNT 6.4 10^3/uL (4.0-10.0)
[2018-10-04 07:20] LABS: INR 2.1; PROTHROMBIN TIME 23.9 SECONDS (12.1-14.4)
[2018-10-04 07:27] LABS: CALCIUM LEVEL 8.9 MG/DL (8.5-10.1); CREATININE FOR GFR 1.36 MG/DL (0.55-1.30); GLOMERULAR FILTRATION RATE 42.8 (>51); MAGNESIUM LEVEL 1.8 MG/DL (1.8-2.4); POTASSIUM SERUM 3.9 MEQ/L (3.5-5.1)
[2018-10-04] MEDS: ADVAIR HFA 115/21MCG INHALER INH SCH ×2 (07:34→20:51)
[2018-10-04] MEDS: HumaLOG INSULIN (NovoLOG) PER UNIT SC SCH ×4 (08:34→21:00)
[2018-10-04] MEDS: PARoxetine 10MG TABLET PO SCH (09:10)
[2018-10-04] MEDS: ASPIRIN 81 MG ENTERIC TAB PO SCH (09:11)
[2018-10-04] MEDS: POTASSIUM CHLORIDE 10 MEQ SR TABLET PO SCH ×2 (09:11→21:16)
[2018-10-04] MEDS: FAMOTIDINE 20 MG TAB PO SCH ×2 (09:11→21:15)
[2018-10-04] MEDS: metFORMIN (GLUCOPHAGE) 1000 MG TABLET PO SCH ×2 (09:12→21:15)
[2018-10-04] MEDS: CARVedilol 6.25 MG TAB PO SCH ×2 (09:12→21:15)
[2018-10-04] MEDS: metOLazone 2.5 MG TAB PO SCH (09:13)
[2018-10-04] MEDS: TORSEMIDE 20 MG TAB PO SCH ×2 (09:15→17:10)
[2018-10-04] MEDS: LEVEMIR (INSULIN DETEMIR) 1 UNITS/0.01ML SC SCH ×2 (09:16→21:14)
[2018-10-04] MEDS: ENOXAPARIN 100MG/1ML SYRINGE (J1650) SC SCH ×2 (09:16→21:16)
[2018-10-04] MEDS: PREGABALIN 75 MG CAP(LYRICA) PO SCH ×3 (09:17→21:15)
[2018-10-04] MEDS: EUCERIN 120GM CREAM TOP SCH ×2 (09:17→21:16)
[2018-10-04] MEDS: BENZONATATE 100 MG CAP PO PRN (09:31)
--- NOTE | 2018-10-04 10:52 | IPNPDOC ---
Date Seen The patient was seen on 10/04/18. Progress Note SUBJECTIVE: Jenny continues to improve this morning. She visited [facility] and decided not to pursue this option after discharge. Arrangements are being made for home health services. Nursing reports the site of her previous lower back ulcer appears to be opening. Otherwise, diarrhea has resolved and scant hemoptysis has improved. OBJECTIVE PHYSICAL EXAMINATION: VITAL SIGNS: Please see below. GENERAL: sitting on edge of bed, calm, cooperative, no acute distress HEENT: moist mucus membranes, EOMI, no thyromegaly CARDIOVASCULAR: normal S1, very prominent S2, RRR, no murmurs/rubs/gallops RESPIRATORY: good air movement without any adventitious breath sounds appreciated ABDOMINAL: soft, nontender to palpation, +BS, no masses or organomegaly BACK: healed pressure ulcer on mid back and upper buttocks, some scaling of skin but no erythema, lower ulcer does appear open, but not actively bleeding and is crusted over EXTREMITIES: trace edema bilaterally NEUROLOGICAL: CN 2-12 intact without any focal deficits PSYCHOLOGICAL: normal mood/affect, very talkative, AAOx3 LABORATORY DATA, IMAGING STUDIES, MICROBIOLOGY: Please see below. Echocardiogram: 11/2017 1. Normal left ventricle internal dimensions and wall thickness. Probably normal regional left ventricular (LV) wall motion and wall thickening. Left ventricle ejection fraction 60% by visual estimate. Unable to assess LV diastolic function in the setting of atrial fibrillation and mechanical mitral valve. 2. Well seated and normally functioning mechanical aortic valve. No mitral regurgitation or mitral stenosis. 3. Moderate left atrial dilatation. 4. Suggestive of moderate elevation of estimated right ventricle systolic pressure. 5. Presence of cardiac rhythm management leads identified in the right atrium and right ventricle. DVT prophylaxis ordered?: Patient is on Coumadin ASSESSMENT AND PLAN: This is a 58 YO F with history CAD, CHF and DM2 who presented with SOB and diarrhea found to have RLL PNA, C. dif, and elevated INR PROBLEMS: 1. RLL PNA: SOB improved with some cough that is improving with breathing treatments -Afebrile with VSS during this admission -WBC WNL -No growth on blood cultures x2 -s/p Zosyn. Augmentin 5-day course completed -Continue DuoNebs and Albuterol inhaler -Scant hemoptysis due to supratherapeutic INR due to coumadin use noted. This is a known issue. 2. History of C.dif diarrhea: -s/p course of Dificid -Diarrhea has nearly resolved. 3. Supratherapeutic INR: Improving. INR today 2.10 -Plan to bridge with Lovenox -Increased Coumadin to 15mg QD 4. History of mitral valve replacement: stable -INR goal 2.5 5. History of CHF: -Continue Demadex 6. Hypothyroidism: -Continue Synthroid 7. Hyperlipidemia: -Continue Atorvastatin 8. DM2: -SSI with hypoglycemic protocol 9. Chronic pain: -Continue Lyrica 10. Tobacco use: -Nicoderm patches for cravings DISPOSITION: anticipate discharge within 48H VS, I&O, 24H, Fishbone Vital Signs/I&O Vital Signs Date Time Temp Pulse Resp B/P (MAP) Pulse Ox O2 Delivery O2 Flow Rate FiO2 10/04/18 09:12 88 133/71 10/04/18 06:00 98.0 20 99 I&O- Last 24 Hours up to 6 AM 10/04/18 06:00 Intake Total 3610 ml Output Total 2600 ml Balance 1010 ml Laboratory Data 24H LABS Laboratory Tests 2 10/03/18 11:22: Bedside Glucose (Misc Panel) 393H 10/03/18 16:20: Bedside Glucose (Misc Panel) 172H 10/03/18 20:53: Bedside Glucose (Misc Panel) 204H 10/04/18 06:55: Nucleated Red Blood Cells % (auto) 0.0, Prothrombin Time 23.9H, Prothromb Time International Ratio 2.10, Anion Gap 10, Glomerular Filtration Rate 42.8L, Blood Urea Nitrogen 55H, Creatinine 1.36H, Sodium Level 136, Potassium Level 3.9, Chloride Level 96L, Carbon Dioxide Level 30, Calcium Level 8.9, Magnesium Level 1.8 CBC/BMP Laboratory Tests 10/04/18 06:55 Red Blood Count 4.71, Mean Corpuscular Volume 77.5 L, Mean Corpuscular Hemoglobin 21.9 L, Mean Corpuscular Hemoglobin Concent 28.2 L, Red Cell Distribution Width 20.8 H, Calcium Level 8.9 Microbiology Microbiology 09/24/18 Blood Culture - Final, Complete NO GROWTH AFTER 5 DAYS 09/24/18 Blood Culture - Final, Complete NO GROWTH AFTER 5 DAYS GME ATTESTATION GME ATTESTATION My faculty preceptor for this patient encounter was physically present during the encounter and was fully available. All aspects of the patient interview, examination, medical decision making process, and medical care plan development were reviewed and approved by the faculty preceptor. The faculty preceptor is aw are and concurs with the plan as stated in the body of this note and will attest to such by his/her cosignature. MEIR NÚÑEZ MD Oct 04, 2018 10:49
[2018-10-04] MEDS: NICOTINE 21MG/24HR 1 EA TRANSDERMAL TD SCH (10:56)
[2018-10-04 14:27] VITALS: BP 133/78
[2018-10-04] MEDS: IPRATROPIUM 0.5MG/ALBUTEROL 2.5MG INH SOL UD 3ML (DUONEB)(J7620) NEB PRN (15:59)
[2018-10-04] MEDS: WARFARIN SOD 5 MG TAB PO SCH (17:10)
[2018-10-04] MEDS: ATORVASTATIN 20 MG TAB PO SCH (21:13)
[2018-10-04] MEDS: zolPIDEM TARTRATE 5 MG TAB PO SCH (21:15)
[2018-10-04 22:00] VITALS: BP 150/67
[2018-10-05] MEDS: guaiFENesin DM LIQ 10ML UD PO PRN ×2 (00:21→09:15)
[2018-10-05] MEDS: LEVOTHYROXINE 137MCG TABLET (0.137MG) PO SCH (05:57)
[2018-10-05 06:00] VITALS: BP 108/59
[2018-10-05 06:53] LABS: HEMATOCRIT 35.6 % (36.0-47.0); HEMOGLOBIN 10.1 g/dl (12.0-15.5); MEAN CORPUSCULAR HEMOGLOBIN 21.8 pg (27.0-33.0); MEAN CORPUSCULAR HGB CONC 28.4 g/dl (32.0-36.5); MEAN CORPUSCULAR VOLUME 76.9 fl (80.0-96.0); PLATELET COUNT, AUTOMATED 228 10^3/uL (150-450); RED BLOOD COUNT 4.63 10^6/uL (4.00-5.40); WHITE BLOOD COUNT 6.6 10^3/uL (4.0-10.0)
[2018-10-05 07:07] LABS: CALCIUM LEVEL 9.3 MG/DL (8.5-10.1); CREATININE FOR GFR 1.35 MG/DL (0.55-1.30); GLOMERULAR FILTRATION RATE 43.2 (>51); MAGNESIUM LEVEL 1.8 MG/DL (1.8-2.4); POTASSIUM SERUM 3.8 MEQ/L (3.5-5.1)
[2018-10-05] MEDS: ADVAIR HFA 115/21MCG INHALER INH SCH ×2 (07:52→20:21)
[2018-10-05 08:18] LABS: INR 1.82; PROTHROMBIN TIME 21.4 SECONDS (12.1-14.4)
[2018-10-05] MEDS: HumaLOG INSULIN (NovoLOG) PER UNIT SC SCH ×4 (08:18→21:00)
[2018-10-05 08:30] VITALS: BP 136/72
[2018-10-05] MEDS: ENOXAPARIN 100MG/1ML SYRINGE (J1650) SC SCH ×2 (09:00→21:00)
[2018-10-05] MEDS: NICOTINE 21MG/24HR 1 EA TRANSDERMAL TD SCH (09:00)
[2018-10-05] MEDS: LEVEMIR (INSULIN DETEMIR) 1 UNITS/0.01ML SC SCH ×2 (09:10→21:52)
[2018-10-05] MEDS: POTASSIUM CHLORIDE 10 MEQ SR TABLET PO SCH ×2 (09:13→21:51)
[2018-10-05] MEDS: PARoxetine 10MG TABLET PO SCH (09:13)
[2018-10-05] MEDS: TORSEMIDE 20 MG TAB PO SCH ×2 (09:13→16:35)
[2018-10-05] MEDS: CARVedilol 6.25 MG TAB PO SCH ×2 (09:14→21:52)
[2018-10-05] MEDS: FAMOTIDINE 20 MG TAB PO SCH ×2 (09:14→21:51)
[2018-10-05] MEDS: ASPIRIN 81 MG ENTERIC TAB PO SCH (09:14)
[2018-10-05] MEDS: BENZONATATE 100 MG CAP PO PRN (09:15)
[2018-10-05] MEDS: EUCERIN 120GM CREAM TOP SCH ×2 (09:15→21:50)
[2018-10-05] MEDS: metFORMIN (GLUCOPHAGE) 1000 MG TABLET PO SCH ×2 (09:15→21:51)
[2018-10-05] MEDS: PREGABALIN 75 MG CAP(LYRICA) PO SCH ×3 (09:15→21:52)
[2018-10-05] MEDS: metOLazone 2.5 MG TAB PO SCH (09:16)
--- NOTE | 2018-10-05 11:48 | IPNPDOC ---
Date Seen The patient was seen on 10/05/18. Progress Note SUBJECTIVE: No changes overnight. Patient has no complaints this morning besides wanting to go home. OBJECTIVE PHYSICAL EXAMINATION: VITAL SIGNS: Please see below. GENERAL: sitting on edge of bed, calm, cooperative, no acute distress HEENT: moist mucus membranes, EOMI, no thyromegaly CARDIOVASCULAR: normal S1, very prominent S2, RRR, no murmurs/rubs/gallops RESPIRATORY: good air movement without any adventitious breath sounds appreciated ABDOMINAL: soft, nontender to palpation, +BS, no masses or organomegaly BACK: healed pressure ulcer on mid back and upper buttocks, some scaling of skin but no erythema, lower ulcer does appear open, but not actively bleeding and is crusted over EXTREMITIES: trace edema bilaterally NEUROLOGICAL: CN 2-12 intact without any focal deficits PSYCHOLOGICAL: normal mood/affect, very talkative, AAOx3 LABORATORY DATA, IMAGING STUDIES, MICROBIOLOGY: Please see below. Echocardiogram: 11/2017 1. Normal left ventricle internal dimensions and wall thickness. Probably normal regional left ventricular (LV) wall motion and wall thickening. Left ventricle ejection fraction 60% by visual estimate. Unable to assess LV diastolic function in the setting of atrial fibrillation and mechanical mitral valve. 2. Well seated and normally functioning mechanical aortic valve. No mitral regurgitation or mitral stenosis. 3. Moderate left atrial dilatation. 4. Suggestive of moderate elevation of estimated right ventricle systolic pressure. 5. Presence of cardiac rhythm management leads identified in the right atrium and right ventricle. DVT prophylaxis ordered?: Patient is on Coumadin ASSESSMENT AND PLAN: This is a 58 YO F with history CAD, CHF and DM2 who pre sented with SOB and diarrhea found to have RLL PNA, C. dif, and elevated INR PROBLEMS: 1. RLL PNA: SOB improved with some cough that is improving with breathing treatments -Afebrile with VSS during this admission -WBC WNL -No growth on blood cultures x2 -s/p Zosyn. Augmentin 5-day course completed -Continue DuoNebs and Albuterol inhaler -Scant hemoptysis due to supratherapeutic INR due to coumadin use noted. This is a known issue. 2. History of C.dif diarrhea: -s/p course of Dificid -Diarrhea has nearly resolved. 3. Supratherapeutic INR: Improving. INR today 1.8 -Plan to bridge with Lovenox -Increased Coumadin to 15mg QD 4. History of mitral valve replacement: stable -INR goal 2.5 5. History of CHF: -Continue Demadex 6. Hypothyroidism: -Continue Synthroid 7. Hyperlipidemia: -Continue Atorvastatin 8. DM2: -SSI with hypoglycemic protocol 9. Chronic pain: -Continue Lyrica 10. Tobacco use: -Nicoderm patches for cravings DISPOSITION: Pending therapeutic INR VS, I&O, 24H, Fishbone Vital Signs/I&O Vital Signs Date Time Temp Pulse Resp B/P (MAP) Pulse Ox O2 Delivery O2 Flow Rate FiO2 10/05/18 06:00 98.0 89 20 108/59 (75) 92 I&O- Last 24 Hours up to 6 AM 10/05/18 06:00 Intake Total 2610 ml Output Total 1550 ml Balance 1060 ml Laboratory Data 24H LABS Laboratory Tests 2 10/04/18 11:34: Bedside Glucose (Misc Panel) 236H 10/04/18 17:00: Bedside Glucose (Misc Panel) 144H 10/04/18 20:35: Bedside Glucose (Misc Panel) 270H 10/05/18 06:38: Nucleated Red Blood Cells % (auto) 0.0, Prothrombin Time 21.4H, Prothromb Time International Ratio 1.82, Anion Gap 8, Glomerular Filtration Rate 43.2L, Blood Urea Nitrogen 56H, Creatinine 1.35H, Sodium Level 133L, Potassium Level 3.8, Chloride Level 95L, Carbon Dioxide Level 30, Calcium Level 9.3, Magnesium Level 1.8 CBC/BMP Laboratory Tests 10/05/18 06:38 Red Blood Count 4.63, Mean Corpuscular Volume 76.9 L, Mean Corpuscular Hemoglobin 21.8 L, Mean Corpuscular Hemoglobin Concent 28.4 L, Red Cell Distribution Width 20.4 H, Calcium Level 9.3 GME ATTESTATION GME ATTESTATION My faculty preceptor for this patient encounter was physically present during the encounter and was fully available. All aspects of the patient interview, examination, medical decision making process, and medical care plan development were reviewed and approved by the faculty preceptor. The faculty preceptor is aware and concurs with the plan as stated in the body of this note and will attest to such by his/her cosignature. MEIR NÚÑEZ MD Oct 05, 2018 09:24
[2018-10-05 13:15] VITALS: BP 132/96
[2018-10-05] MEDS: WARFARIN SOD 5 MG TAB PO SCH (16:34)
[2018-10-05] MEDS: ACETAMINOPHEN TAB 650MG DOSE (2X325MG) PO PRN (16:35)
[2018-10-05] MEDS: ATORVASTATIN 20 MG TAB PO SCH (21:51)
[2018-10-05] MEDS: zolPIDEM TARTRATE 5 MG TAB PO SCH (21:51)
[2018-10-05 22:00] VITALS: BP 102/53
[2018-10-06] MEDS: guaiFENesin DM LIQ 10ML UD PO PRN ×4 (00:02→21:13)
[2018-10-06] MEDS: LEVOTHYROXINE 137MCG TABLET (0.137MG) PO SCH (05:49)
[2018-10-06 06:00] VITALS: BP 124/57
[2018-10-06 06:08] LABS: HEMATOCRIT 34.3 % (36.0-47.0); HEMOGLOBIN 9.7 g/dl (12.0-15.5); MEAN CORPUSCULAR HGB CONC 28.3 g/dl (32.0-36.5); MEAN CORPUSCULAR VOLUME 77.8 fl (80.0-96.0); PLATELET COUNT, AUTOMATED 218 10^3/uL (150-450); RED BLOOD COUNT 4.41 10^6/uL (4.00-5.40); WHITE BLOOD COUNT 6.6 10^3/uL (4.0-10.0)
[2018-10-06 06:22] LABS: INR 1.9; PROTHROMBIN TIME 22.1 SECONDS (12.1-14.4)
[2018-10-06 06:32] LABS: CALCIUM LEVEL 9.1 MG/DL (8.5-10.1); CREATININE FOR GFR 1.44 MG/DL (0.55-1.30); GLOMERULAR FILTRATION RATE 40.1 (>51); MAGNESIUM LEVEL 1.9 MG/DL (1.8-2.4); POTASSIUM SERUM 3.6 MEQ/L (3.5-5.1)
[2018-10-06] MEDS: ADVAIR HFA 115/21MCG INHALER INH SCH ×2 (07:52→20:23)
--- NOTE | 2018-10-06 08:15 | IPNPDOC ---
Text Note Date of Service The patient was seen on 10/06/18. NOTE SUBJECTIVE: Patient seen and examined at bedside. No acute overnight events r eported. Patient has no new medical complaints. OBJECTIVE PHYSICAL EXAMINATION: VITAL SIGNS: Please see below. GENERAL: NAD, lying comfortably in bed HEENT: NC/AT, EOMI CARDIOVASCULAR: +S1S2, systolic click RESPIRATORY: CTA B/L ABDOMINAL: soft, obese, NT, +BS BACK: healed pressure ulcer on mid back and upper buttocks, some scaling of skin but no erythema, lower ulcer does appear open, but not actively bleeding and is crusted over EXTREMITIES: trace peripheral edema b/l LE NEUROLOGICAL: no gross focal deficits LABORATORY DATA, IMAGING STUDIES, MICROBIOLOGY: Please see below. Echocardiogram: 11/2017 1. Normal left ventricle internal dimensions and wall thickness. Probably normal regional left ventricular (LV) wall motion and wall thickening. Left ventricle ejection fraction 60% by visual estimate. Unable to assess LV diastolic function in the setting of atrial fibrillation and mechanical mitral valve. 2. Well seated and normally functioning mechanical aortic valve. No mitral regurgitation or mitral stenosis. 3. Moderate left atrial dilatation. 4. Suggestive of moderate elevation of estimated right ventricle systolic pressure. 5. Presence of cardiac rhythm management leads identified in the right atrium and right ventricle. DVT prophylaxis ordered?: Patient is on Coumadin/Lovenox ASSESSMENT AND PLAN: This is a 58 YO F with history CAD, CHF, mechanical MVR and DM2 who presented with SOB and diarrhea found to have RLL PNA, C. dif, and elevated INR # RLL PNA - completed adequate anti-microbial coverage #History of C.dif diarrhea: -s/p course of Dificid #Supratherapeutic INR on admission - problem now is subtherapeutic INR - bridging with Lovenox - home warfarin dosage increase from 10 to 15mg daily - will increase to 17.5 tonight - slowly rising - still subtherapeutic - consider d/c home with independent administration of Lovenox, although patient does not seem to be able to self-administer, question compliance #anemia - check FOB # History of mechanical mitral valve replacement - as above - subtherapeutic INR - bridging with Lovenox - target INR 2.5-3.5 #CHF: -Continue Demadex #Hypothyroidism: -Continue Synthroid #Hyperlipidemia: -Continue Atorvastatin #DM2: -SSI with hypoglycemic protocol #Chronic pain: -Continue Lyrica #nicotine abuse - patient refused nicotine replacement therapy DISPOSITION: Pending therapeutic INR VS,Fishbone, I+O VS, Fishbone, I+O Laboratory Tests 10/06/18 05:38 Red Blood Count 4.41, Mean Corpuscular Volume 77.8 L, Mean Corpuscular Hemoglobin 22.0 L, Mean Corpuscular Hemoglobin Concent 28.3 L, Red Cell Distribution Width 20.7 H, Calcium Level 9.1 Vital Signs Date Time Temp Pulse Resp B/P (MAP) Pulse Ox O2 Delivery O2 Flow Rate FiO2 10/06/18 06:00 96.6 75 18 124/57 (79) 95 I&O- Last 24 Hours up to 6 AM 10/06/18 06:00 Intake Total 2040 ml Output Total 1700 ml Balance 340 ml MIKE PICKENS MD Oct 06, 2018 08:15
[2018-10-06] MEDS: HumaLOG INSULIN (NovoLOG) PER UNIT SC SCH ×4 (08:28→21:00)
[2018-10-06] MEDS: PREGABALIN 75 MG CAP(LYRICA) PO SCH ×3 (08:29→21:15)
[2018-10-06] MEDS: metFORMIN (GLUCOPHAGE) 1000 MG TABLET PO SCH ×2 (08:29→21:15)
[2018-10-06] MEDS: LEVEMIR (INSULIN DETEMIR) 1 UNITS/0.01ML SC SCH ×2 (08:29→21:15)
[2018-10-06] MEDS: CARVedilol 6.25 MG TAB PO SCH ×2 (08:29→21:14)
[2018-10-06] MEDS: ASPIRIN 81 MG ENTERIC TAB PO SCH (08:29)
[2018-10-06] MEDS: POTASSIUM CHLORIDE 10 MEQ SR TABLET PO SCH ×2 (08:30→21:14)
[2018-10-06] MEDS: PARoxetine 10MG TABLET PO SCH (08:30)
[2018-10-06] MEDS: FAMOTIDINE 20 MG TAB PO SCH ×2 (08:30→21:14)
[2018-10-06] MEDS: metOLazone 2.5 MG TAB PO SCH (08:30)
[2018-10-06] MEDS: TORSEMIDE 20 MG TAB PO SCH ×2 (08:31→16:12)
[2018-10-06] MEDS: NICOTINE 21MG/24HR 1 EA TRANSDERMAL TD SCH (08:31)
[2018-10-06] MEDS: EUCERIN 120GM CREAM TOP SCH ×2 (08:31→21:16)
[2018-10-06] MEDS: ENOXAPARIN 100MG/1ML SYRINGE (J1650) SC SCH ×2 (08:31→21:00)
[2018-10-06 14:00] VITALS: BP 120/69
[2018-10-06] MEDS: WARFARIN SOD 5 MG TAB PO SCH (16:13)
[2018-10-06] MEDS: ACETAMINOPHEN TAB 650MG DOSE (2X325MG) PO PRN (16:15)
[2018-10-06] MEDS ORDERED: WARFARIN SOD 2.5 MG TAB PO ONE (17:00)
[2018-10-06] MEDS: ATORVASTATIN 20 MG TAB PO SCH (21:14)
[2018-10-06] MEDS: zolPIDEM TARTRATE 5 MG TAB PO SCH (21:15)
[2018-10-06 22:00] VITALS: BP 155/70
[2018-10-07] MEDS: LEVOTHYROXINE 137MCG TABLET (0.137MG) PO SCH (05:09)
[2018-10-07 06:00] VITALS: BP 125/52
[2018-10-07 06:38] LABS: HEMATOCRIT 34.2 % (36.0-47.0); HEMOGLOBIN 9.7 g/dl (12.0-15.5); MEAN CORPUSCULAR HEMOGLOBIN 21.9 pg (27.0-33.0); MEAN CORPUSCULAR HGB CONC 28.4 g/dl (32.0-36.5); MEAN CORPUSCULAR VOLUME 77.4 fl (80.0-96.0); PLATELET COUNT, AUTOMATED 232 10^3/uL (150-450); RED BLOOD COUNT 4.42 10^6/uL (4.00-5.40); WHITE BLOOD COUNT 6.3 10^3/uL (4.0-10.0)
[2018-10-07 06:50] LABS: INR 2.18; PROTHROMBIN TIME 24.7 SECONDS (12.1-14.4)
[2018-10-07 07:00] LABS: CALCIUM LEVEL 9.2 MG/DL (8.5-10.1); CREATININE FOR GFR 1.51 MG/DL (0.55-1.30); GLOMERULAR FILTRATION RATE 37.9 (>51); MAGNESIUM LEVEL 1.8 MG/DL (1.8-2.4); POTASSIUM SERUM 3.8 MEQ/L (3.5-5.1)
[2018-10-07] MEDS: ADVAIR HFA 115/21MCG INHALER INH SCH ×2 (07:52→21:08)
[2018-10-07] MEDS: HumaLOG INSULIN (NovoLOG) PER UNIT SC SCH ×4 (08:20→21:00)
[2018-10-07] MEDS: FAMOTIDINE 20 MG TAB PO SCH ×2 (08:21→22:01)
[2018-10-07] MEDS: PREGABALIN 75 MG CAP(LYRICA) PO SCH ×3 (08:21→22:02)
[2018-10-07] MEDS: LEVEMIR (INSULIN DETEMIR) 1 UNITS/0.01ML SC SCH ×2 (08:21→22:02)
[2018-10-07] MEDS: TORSEMIDE 20 MG TAB PO SCH ×2 (08:21→17:40)
[2018-10-07] MEDS: ASPIRIN 81 MG ENTERIC TAB PO SCH (08:21)
[2018-10-07] MEDS: guaiFENesin DM LIQ 10ML UD PO PRN ×3 (08:21→22:11)
[2018-10-07] MEDS: ENOXAPARIN 100MG/1ML SYRINGE (J1650) SC SCH ×2 (08:22→21:00)
[2018-10-07] MEDS: POTASSIUM CHLORIDE 10 MEQ SR TABLET PO SCH ×2 (08:22→22:01)
[2018-10-07] MEDS: metFORMIN (GLUCOPHAGE) 1000 MG TABLET PO SCH ×2 (08:22→22:01)
[2018-10-07] MEDS: CARVedilol 6.25 MG TAB PO SCH ×2 (08:22→22:01)
[2018-10-07] MEDS: PARoxetine 10MG TABLET PO SCH (08:22)
[2018-10-07] MEDS: metOLazone 2.5 MG TAB PO SCH (08:22)
[2018-10-07] MEDS: EUCERIN 120GM CREAM TOP SCH ×2 (08:23→21:00)
[2018-10-07] MEDS: NICOTINE 21MG/24HR 1 EA TRANSDERMAL TD SCH (08:23)
--- NOTE | 2018-10-07 10:00 | IPNPDOC ---
Date Seen The patient was seen on 10/07/18. Progress Note SUBJECTIVE: Patient reports she feels better this morning. She is no longer coughing up scan bloody mucus. Diarrhea has fully resolved, and she feels ready to go home. She shows me some new bruises underneath her arm that are hard and painful. She is concerned about her excessive bruising but she is reassured that this is a normal side effect of being on anticoagulation. OBJECTIVE PHYSICAL EXAMINATION: VITAL SIGNS: Please see below. GENERAL: sitting on edge of bed, calm, cooperative, no acute distress HEENT: moist mucus membranes, EOMI, no thyromegaly CARDIOVASCULAR: normal S1, very prominent S2, RRR, no murmurs/rubs/gallops RESPIRATORY: good air movement without any adventitious breath sounds appreciated ABDOMINAL: soft, nontender to palpation, +BS, no masses or organomegaly BACK: healed pressure ulcer on mid back and upper buttocks, some scaling of skin but no erythema, lower ulcer does appear open, but not actively bleeding and is crusted over; two large bruises underneath her left arm EXTREMITIES: trace edema bilaterally NEUROLOGICAL: CN 2-12 intact without any focal deficits PSYCHOLOGICAL: normal mood/affect, very talkative, AAOx3 LABORATORY DATA, IMAGING STUDIES, MICROBIOLOGY: Please see below. Echocardiogram: 11/2017 1. Normal left ventricle internal dimensions and wall thickness. Probably normal regional left ventricular (LV) wall motion and wall thickening. Left ventricle ejection fraction 60% by visual estimate. Unable to assess LV diastolic function in the setting of atrial fibrillation and mechanical mitral valve. 2. Well seated and normally functioning mechanical aortic valve. No mitral regurgitation or mitral stenosis. 3. Moderate left atrial dilatation. 4. Suggestive of moderate elevation of estimated right ventricle systolic pressure. 5. Presence of cardiac rhythm management leads identified in the right atrium and right ventricle. DVT prophylaxis ordered?: Patient is on Coumadin ASSESSMENT AND PLAN: This is a 58 YO F with history CAD, CHF and DM2 who presented with SOB and diarrhea found to have RLL PNA, C. dif, and elevated INR PROBLEMS: 1. RLL PNA: appears to have resolved. -s/p IV Zosyn and PO Augmentin -Continue DuoNebs and Albuterol inhaler 2. History of C.dif diarrhea: appears to have resolved -s/p course of Dificid 3. Supratherapeutic INR: Improving. INR today 2.18 -Plan to bridge with Lovenox -Increased Coumadin to 15mg QD + 2.5mg dose 4. History of mitral valve replacement: stable -INR goal 2.5 5. History of CHF: -Continue Demadex 6. Hypothyroidism: -Continue Synthroid 7. Hyperlipidemia: -Continue Atorvastatin 8. DM2: -SSI with hypoglycemic protocol 9. Chronic pain: -Continue Lyrica 10. Tobacco use: -Nicoderm patches for cravings DISPOSITION: Pending therapeutic INR VS, I&O, 24H, Fishbone Vital Signs/I&O Vital Signs Date Time Temp Pulse Resp B/P (MAP) Pulse Ox O2 Delivery O2 Flow Rate FiO2 10/07/18 08:22 83 125/52 10/07/18 06:00 96.9 18 97 I&O- Last 24 Hours up to 6 AM 10/07/18 06:00 Intake Total 3300 ml Output Total 0 ml Balance 3300 ml Laboratory Data 24H LABS Laboratory Tests 2 10/06/18 11:37: Bedside Glucose (Misc Panel) 279H 10/06/18 16:42: Bedside Glucose (Misc Panel) 92 10/06/18 20:57: Bedside Glucose (Misc Panel) 231H 10/07/18 06:16: Nucleated Red Blood Cells % (auto) 0.0, Prothrombin Time 24.7H, Prothromb Time International Ratio 2.18, Anion Gap 7L, Glomerular Filtration Rate 37.9L, Blood Urea Nitrogen 63H, Creatinine 1.51H, Sodium Level 134L, Potassium Level 3.8, Chloride Level 96L, Carbon Dioxide Level 31, Calcium Level 9.2, Magnesium Level 1.8 CBC/BMP Laboratory Tests 10/07/18 06:16 Red Blood Count 4.42, Mean Corpuscular Volume 77.4 L, Mean Corpuscular Hemoglobin 21.9 L, Mean Corpuscular Hemoglobin Concent 28.4 L, Red Cell Distribution Width 20.9 H, Calcium Level 9.2 Microbiology Microbiology 10/06/18 Stool Occult Blood (LENNOX) - Final, Complete GME ATTESTATION GME ATTESTATION My faculty preceptor for this patient encounter was physically present during the encounter and was fully available. All aspects of the patient interview, examination, medical decision making process, and medical care plan development were reviewed and approved by the faculty preceptor. The faculty preceptor is aware and concurs with the plan as stated in the body of this note and will attest to such by his/her cosignature. ATTENDING NOTE I, Tam Mckeon, have both independently examined this patient as well as reviewed the documentation. I have discussed in detail with the resident the findings and plan of treatment as documented in the residents documentation. I will continue to follow the patient and offer further guidance to the patients care as necessary during this hospital stay. MEIR NÚÑEZ MD Oct 07, 2018 10:00 TAM MCKEON MD Oct 08, 2018 18:10
[2018-10-07 14:00] VITALS: BP 112/69
[2018-10-07] MEDS ORDERED: WARFARIN SOD 2.5 MG TAB PO SCH (17:00)
[2018-10-07] MEDS: WARFARIN SOD 5 MG TAB PO SCH (17:40)
[2018-10-07] MEDS: ATORVASTATIN 20 MG TAB PO SCH (22:00)
[2018-10-07] MEDS: zolPIDEM TARTRATE 5 MG TAB PO SCH (22:01)
[2018-10-08] MEDS: guaiFENesin DM LIQ 10ML UD PO PRN (05:54)
[2018-10-08] MEDS: LEVOTHYROXINE 137MCG TABLET (0.137MG) PO SCH (05:54)
[2018-10-08 06:00] VITALS: BP 130/65
[2018-10-08 06:41] LABS: HEMOGLOBIN 9.9 g/dl (12.0-15.5); MEAN CORPUSCULAR HEMOGLOBIN 22.6 pg (27.0-33.0); MEAN CORPUSCULAR HGB CONC 29.1 g/dl (32.0-36.5); MEAN CORPUSCULAR VOLUME 77.6 fl (80.0-96.0); PLATELET COUNT, AUTOMATED 239 10^3/uL (150-450); RED BLOOD COUNT 4.38 10^6/uL (4.00-5.40)
[2018-10-08 06:54] LABS: INR 2.6; PROTHROMBIN TIME 28.4 SECONDS (12.1-14.4)
[2018-10-08] MEDS ORDERED: WARF-21 PO (08:10)
[2018-10-08] MEDS: ADVAIR HFA 115/21MCG INHALER INH SCH (09:00)
[2018-10-08] MEDS: HumaLOG INSULIN (NovoLOG) PER UNIT SC SCH (10:09)
[2018-10-08] MEDS: PREGABALIN 75 MG CAP(LYRICA) PO SCH (10:09)
[2018-10-08] MEDS: LEVEMIR (INSULIN DETEMIR) 1 UNITS/0.01ML SC SCH (10:09)
[2018-10-08] MEDS: metFORMIN (GLUCOPHAGE) 1000 MG TABLET PO SCH (10:10)
[2018-10-08] MEDS: metOLazone 2.5 MG TAB PO SCH (10:10)
[2018-10-08] MEDS: FAMOTIDINE 20 MG TAB PO SCH (10:10)
[2018-10-08] MEDS: ASPIRIN 81 MG ENTERIC TAB PO SCH (10:10)
[2018-10-08] MEDS: TORSEMIDE 20 MG TAB PO SCH (10:10)
[2018-10-08 10:11] VITALS: BP 130/65
[2018-10-08] MEDS: POTASSIUM CHLORIDE 10 MEQ SR TABLET PO SCH (10:11)
[2018-10-08] MEDS: PARoxetine 10MG TABLET PO SCH (10:11)
[2018-10-08] MEDS: CARVedilol 6.25 MG TAB PO SCH (10:11)
[2018-10-08] MEDS: ENOXAPARIN 100MG/1ML SYRINGE (J1650) SC SCH (10:12)
[2018-10-08] MEDS: NICOTINE 21MG/24HR 1 EA TRANSDERMAL TD SCH (10:13)
--- NOTE | 2018-10-08 13:50 | DS.PDOC ---
Discharge Summary General Date of Admission Sep 24, 2018 at 11:25 Date of Discharge October 08, 2018 Primary Care Physician: DELORES PHILIP DO Attending Physician: AUDIE MCKEON MD Discharge Summary PROCEDURES PERFORMED DURING STAY: [None]. ADMITTING DIAGNOSES: 1. DM2 2. CAD s/p CABG 3. Valvular heart disease s/p mitral valve replacement 4. C. difficile infection 5. Chronic ulcers of the skin DISCHARGE DIAGNOSES: 1. DM2 2. CAD s/p CABG 3. Valvular heart disease s/p mitral valve replacement 4. C. difficile infection 5. Chronic ulcers of the skin COMPLICATIONS/CHIEF COMPLAINT: Rll Pneumonia. HISTORY OF PRESENT ILLNESS: 58-year-old white female with past medical history of extensive medical problems including diabetes mellitus, CAD status post CABG, status post lung infection with chest tube placement in the past, was recently admitted with pneumonia and lead I. She developed C. difficile presented again with chief complaints of shortness of breath. In ED, patient was diagnosed with limited INR and new right lower lobe infiltrate. Patient is being admitted for new right lower lobe infiltrate and has been started on Zosyn for pneumonia HOSPITAL COURSE: The patient was admitted with suspected PNA, as CXR found new right lower lobe infiltrate. She was treated with IV Zosyn for 6 days and subsequently transitioned to PO Augmentin for 5 days. She was also found to have supratherapeutic INR in the setting of medication noncompliance for 8 prior days of C. dif infection for which she was on Dificid. She was continued on her course of Dificid, given oral Vitamin K, and bridged with Lovenox with an INR goal of 2.5. On hospital day 14, her INR was 2.6, her cough and diarrhea had resolved, and she was discharged home on her same home medications. She is to follow up with her PCP in 3-4 days for INR check. DISCHARGE MEDICATIONS: Please see below. ALLERGIES: Please see below. PHYSICAL EXAMINATION ON DISCHARGE: VITAL SIGNS: Please see below. GENERAL: sitting on edge of bed, calm, cooperative, no acute distress HEENT: moist mucus membranes, EOMI, no thyromegaly CARDIOVASCULAR: normal S1, very prominent S2, RRR, no murmurs/rubs/gallops RESPIRATORY: good air movement without any adventitious breath sounds appreciated ABDOMINAL: soft, nontender to palpation, +BS, no masses or organomegaly BACK: healed pressure ulcer on mid back and upper buttocks, some scaling of skin but no erythema, lower ulcer does appear open, but not actively bleeding and is crusted over; two large bruises underneath her left arm EXTREMITIES: trace edema bilaterally NEUROLOGICAL: CN 2-12 intact without any focal deficits PSYCHOLOGICAL: normal mood/affect, very talkative, AAOx3 LABORATORY DATA: Please see below. IMAGING: CXR on admission: There is an infiltrate inferiorly in the right lung as an interval change. The left lung is clear. Elevation of the right hemidiaphragm is unchanged. Sternotomy wires and pacemaker are unchanged. Mild cardiomegaly is unchanged. Impression: Infiltrate inferiorly in the right lung as an interval change. There are no other interval changes. PROGNOSIS: fair ACTIVITY: [As tolerated]. DIET: Consistent carbohydrate DISCHARGE PLAN: Follow up with PCP within 3-4 days, follow up with wound care (Jennifer) DISPOSITION: Home, Self-Care. DISCHARGE CONDITION: [Stable]. TIME SPENT ON DISCHARGE: Greater than 30 minutes. Vital Signs/I&Os Vital Signs Date Time Temp Pulse Resp B/P (MAP) Pulse Ox O2 Delivery O2 Flow Rate FiO2 10/08/18 10:11 80 130/65 10/08/18 06:00 98.0 17 96 I&O- Last 24 Hours up to 6 AM 10/08/18 06:00 Intake Total 2940 ml Output Total 2200 ml Balance 740 ml Laboratory Data Labs 24H Laboratory Tests 2 10/07/18 16:44: Bedside Glucose (Misc Panel) 207H 10/07/18 20:51: Bedside Glucose (Misc Panel) 213H 10/08/18 06:17: Nucleated Red Blood Cells % (auto) 0.0, Prothrombin Time 28.4H, Prothromb Time International Ratio 2.60 10/08/18 09:26: Bedside Glucose (Misc Panel) 207H CBC/BMP Laboratory Tests 10/08/18 06:17 Red Blood Count 4.38, Mean Corpuscular Volume 77.6 L, Mean Corpuscular Hemoglobin 22.6 L, Mean Corpuscular Hemoglobin Concent 29.1 L, Red Cell Distribution Width 21.2 H FSBS Laboratory Tests Test 10/07/18 16:44 10/07/18 20:51 10/08/18 09:26 Range/Units Bedside Glucose (Misc Panel) 207 213 207 70-105 MG/DL Microbiology Microbiology 10/06/18 Stool Occult Blood (LENNOX) - Final, Complete Discharge Medications Scheduled Aspirin (Aspir 81) 81 Mg Tab, 81 MG PO DAILY, (Reported) Atorvastatin Calcium (Atorvastatin Calcium) 80 Mg Tab, 80 MG PO QHS, (Reported) Carvedilol (Carvedilol) 6.25 Mg Tab, 6.25 MG PO BID, (Reported) Fidaxomicin (Dificid) 200 Mg Tablet, 200 MG PO BID, (Reported) TO STOP 09/26/18 Fluticasone Propion/Salmeterol (Advair Hfa 115-21 Mcg Inhaler) 12 Gm Hfa.aer.ad, 2 PUFF INH BID, (Reported) Insulin Glargine,Hum.rec.anlog (Basaglar Kwikpen U-100) 100 Unit/Ml Inj, 45 UNITS SQ BID 1 month supply Insulin Human Lispro (Novolog) 100 U/Ml Inj, 0 SC AC, (Reported) PER SLIDING SCALE Ipratropium/Albuterol Sulfate (Iprat-Albut 0.5-3(2.5) mg/3 ml) 1 Jessica Jessica, 1 VIAL NEB BID Levothyroxine Sodium (Levoxyl) 137 Mcg Tab, 137 MCG PO DAILY, (Reported) Metformin HCl (Metformin HCl) 1,000 Mg Tab, 1,000 MG PO BID, (Reported) Metolazone (Metolazone) 2.5 Mg Tablet, 1.25 MG PO DAILY, (Reported) X 5 DAYS. PT WAS SUPPOSED TO START TODAY 09/24/18 Paroxetine HCl (Paroxetine) 10 Mg Tablet, 10 MG PO DAILY, (Reported) Pregabalin (Lyrica) 75 Mg Cap, 75 MG PO TID, (Reported) Ranitidine HCl (Ranitidine HCl) 150 Mg Cap, 1 CAP PO BID, (Reported) Torsemide (Torsemide) 20 Mg Tablet, 80 MG PO BID, (Reported) Warfarin Sodium (Warfarin Sodium) 7.5 Mg Tablet, 15 MG PO DAILY Zolpidem Tartrate (Zolpidem Tartrate) 5 Mg Tab, 5 MG PO QHS, (Reported) Scheduled PRN Albuterol Sulfate (Ventolin Hfa) 18 Gm Hfa.aer.ad, 2 PUFF INH Q4H PRN for SHORTNESS OF BREATH, (Reported) Benzonatate (Benzonatate) 100 Mg Capsule, 100 MG PO TID PRN for COUGH, (Reported) Allergies Coded Allergies: ciprofloxacin (Verified Adverse Reaction, Intermediate, Severe Diarrhea, 09/11/18) heparin (Verified Adverse Reaction, Intermediate, Heparin Induced Thrombocytopenia, 10/01/18) UPDATE: LOVENOX CHALLENGE 09/2018 RESULTED IN NO REDUCTION INPLATELET COUNTS GME ATTESTATION GME ATTESTATION My faculty preceptor for this patient encounter was physically present during the encounter and was fully available. All aspects of the patient interview, examination, medical decision making process, and medical care plan development were reviewed and approved by the faculty preceptor. The faculty preceptor is aware and concurs with the plan as stated in the body of this note and will a ttest to such by his/her cosignature. MEIR NÚÑEZ MD Oct 08, 2018 13:50
[2018-10-09] MEDS ORDERED: KEFL500C17 PO (01:07)
== END 2018-10-08 10:20 | disposition home or self-care (01) | DRG 139 ==
LOC: EDBD 08:48 → M ED 08:48 → M ED INP 11:25 → M MS5PR 14:15
PROVIDERS: ADMIT Internal Medicine; ATTEND Internal Medicine
DX: J18.1 Lobar pneumonia, unspecified organism (principal); D68.32 Hemorrhagic disorder due to extrinsic circulating anticoagulants; I11.9 Hypertensive heart disease without heart failure; R04.2 Hemoptysis; E11.9 Type 2 diabetes mellitus without complications; D64.9 Anemia, unspecified; E03.9 Hypothyroidism, unspecified; I25.10 Atherosclerotic heart disease of native coronary artery without angina pectoris; G89.29 Other chronic pain; E66.9 Obesity, unspecified; R19.7 Diarrhea, unspecified; Z79.82 Long term (current) use of aspirin; Z79.4 Long term (current) use of insulin; Z79.01 Long term (current) use of anticoagulants; Z79.899 Other long term (current) drug therapy; Z88.1 Allergy status to other antibiotic agents; Z88.8 Allergy status to other drugs, medicaments and biological substances; Z95.1 Presence of aortocoronary bypass graft; Z95.810 Presence of automatic (implantable) cardiac defibrillator; Z87.891 Personal history of nicotine dependence; Z68.36 Body mass index [BMI] 36.0-36.9, adult; Z95.2 Presence of prosthetic heart valve

== ENCOUNTER 2018-10-08 22:32 | Emergency (ER) | payer OTHER ==
[~2018-10-08] VITALS: Ht 175.3 cm; Wt 100.0 kg
[~2018-10-08 22:32] MED LIST changes: +BENZ-18 PO; +METO25TA PO; +PARO10TA3 PO; +RANI150T14; +WARF-21 PO
[2018-10-08 23:27] LABS: BASO # 0.1 10^3/uL (0.0-0.2); BASO % 0.5 % (0.0-1.0); EOS # 0.1 10^3/uL (0.0-0.50); EOS % 0.8 % (0.0-3.0); HEMATOCRIT 36.4 % (36.0-47.0); HEMOGLOBIN 10.4 g/dl (12.0-15.5); LYMPH # 1.3 10^3/uL (1.5-4.5); LYMPH % 12.5 % (24.0-44.0); MEAN CORPUSCULAR HEMOGLOBIN 22.2 pg (27.0-33.0); MEAN CORPUSCULAR HGB CONC 28.6 g/dl (32.0-36.5); MEAN CORPUSCULAR VOLUME 77.6 fl (80.0-96.0); MONO # 0.9 10^3/uL (0.0-0.8); MONO % 8.7 % (0.0-5.0); NEUTROPHILS # 7.8 10^3/uL (1.8-7.7); NEUTROPHILS % 76.9 % (36.0-66.0); PLATELET COUNT, AUTOMATED 281 10^3/uL (150-450); RED BLOOD COUNT 4.69 10^6/uL (4.00-5.40); WHITE BLOOD COUNT 10.1 10^3/uL (4.0-10.0)
[2018-10-08 23:35] LABS: GLUCOSE, URINE (UA) MANUAL NEGATIVE (NEGATIVE)
[2018-10-08 23:36] LABS: BILIRUBIN, URINE MANUAL OBSCURED (NEGATIVE); KETONE, URINE MANUAL OBSCURED mg/dL (NEGATIVE); UROBILINOGEN, URINE MANUAL OBSCURED mg/dl (NORMAL)
[2018-10-08 23:39] LABS: RBC, URINE TNTC /hpf (0-3); SQUAMOUS EPITHELIAL CELL URINE SMALL AMOUNT /hpf (SMALL AMT)
[2018-10-08 23:40] LABS: INR 2.86; PROTHROMBIN TIME 30.6 SECONDS (12.1-14.4)
[2018-10-08 23:41] LABS: PARTIAL THROMBOPLASTIN TIME 43.5 SECONDS (25.4-37.6)
[2018-10-08 23:44] LABS: HYALINE CAST, URINE NONE SEEN /lpf (0-1)
[2018-10-08 23:45] LABS: BACTERIA, URINE NONE SEEN
[2018-10-09] LABS: ALBUMIN 3.1 GM/DL (3.2-5.2); BILIRUBIN,DIRECT 0.3 MG/DL (0.0-0.2); BILIRUBIN,TOTAL 0.7 MG/DL (0.2-1.0); CALCIUM LEVEL 8.7 MG/DL (8.5-10.1); CREATININE FOR GFR 1.57 MG/DL (0.55-1.30); GLOMERULAR FILTRATION RATE 36.3 (>51); POTASSIUM SERUM 3.7 MEQ/L (3.5-5.1); TOTAL PROTEIN 8.1 GM/DL (6.4-8.2)
--- NOTE | 2018-10-09 00:42 | REPVR ---
EXAM: CT Abdomen and Pelvis Without Contrast EXAM DATE/TIME: 10/08/2018 10:56 PM CLINICAL HISTORY: 58 years old, female; Signs and symptoms; Other: Hematuria TECHNIQUE: Imaging protocol: Axial computed tomography images of the abdomen and pelvis without contrast. Coronal and sagittal reformatted images were created and reviewed. Radiation optimization: All CT scans at this facility use at least one of these dose optimization techniques: automated exposure control; mA and/or kV adjustment per patient size (includes targeted exams where dose is matched to clinical indication); or iterative reconstruction. COMPARISON: CT Pelvis with contrast 03/09/2018 12:55 PM FINDINGS: Lungs: Linear/discoid stranding and groundglass at the lung bases with focal areas of subsegmental consolidation in the right middle and lower lobes, likely due to atelectasis and/or scarring. Subtle superimposed bibasilar reticulonodular infiltrates, suggestive of small airway disease/aspiration. Heart: Cardiac pacer wires partially visualized. ABDOMEN: Liver: Mild hepatomegaly. Subtle nodularity of the hepatic contour, suggesting early cirrhosis. Gallbladder and bile ducts: No radiodense gallstones. No biliary ductal dilatation. Pancreas: Unremarkable. Spleen: Punctate calcified splenic granuloma. Adrenals: 2.8 x 2.6 cm left adrenal adenoma. Kidneys and ureters: No mass. No radiodense calculi. No hydronephrosis. Stomach and bowel: Moderate amount of retained stool in the colon. No obstruction. No bowel wall thickening. No pneumatosis. Appendix: Normal. PELVIS: Bladder: Circumferential urinary bladder wall thickening and perivesicular edema, compatible with cystitis. Trace gas in the nondependent urinary bladder, compatible with recent instrumentation versus gas producing organism. Reproductive: Unremarkable. ABDOMEN and PELVIS: Intraperitoneal space: No free fluid. No organized fluid collection. No free air. Bones/joints: No acute osseous abnormality. Osteopenia. Degenerative changes. Soft tissues: Multiple foci of subcutaneous nodularity in the abdominal wall, possibly secondary to prior injections. Nonspecific focus of loculated subcutaneous fluid in the right anterior abdominal wall, measuring approximately 5.6 x 2.5 cm, with overlying skin thickening. Vasculature: Moderate atherosclerotic disease. No aneurysm. Lymph nodes: No pathologically enlarged lymph nodes. IMPRESSION: 1. Limited noncontrast examination. 2. Circumferential urinary bladder wall thickening and perivesicular edema, compatible with cystitis. Correlate with urinalysis. 3. Trace gas in the nondependent urinary bladder, compatible with recent instrumentation versus gas producing organism. 4. Subtle bibasilar reticulonodular infiltrates, suggestive of small airway disease/aspiration. 5. Nonspecific focus of loculated subcutaneous fluid in the right anterior abdominal wall, measuring approximately 5.6 x 2.5 cm, with overlying skin thickening. Infection cannot be entirely excluded. 6. Additional findings, as above. Electronically signed by: Shane Reeves On 10/09/2018 00:42:13 AM
[2018-10-09] MEDS ORDERED: KEFL500C17 PO (01:07)
[2018-10-09 01:10] VITALS: BP 104/61
[2018-10-09] MEDS ORDERED: CEPHALEXIN 500 MG CAP PO ONE (01:15)
--- NOTE | 2018-10-09 08:12 | REP ---
Portable chest x-ray: Single view. History: Hematuria. Comparison study: September 29, 2018. Findings: A unipolar pacemaker is seen in the right heart via the left side. The patient is status post prior median sternotomy. The heart is not felt to be enlarged. There is a linear plate-like atelectasis in the left perihilar region and left base somewhat improved from the 09/29/2018 study. There is a right middle lobe rounded opacity which is essentially unchanged. This developed on September 24, 2018. Remaining lung lugo are clear. Impression: Persistent infiltrate right middle lobe distribution. Improving discoid atelectasis left base. Prior sternotomy with pacemaker. Electronically Signed by Reymundo Jay MD 10/09/2018 08:03 A
--- NOTE | 2018-10-10 13:13 | ED PDOC ---
Post-Departure Follow-Up dr gonzalez faxed formal report of ct abd/pf or fu erikag Maximino Castaneda MD Oct 10, 2018 13:13
--- NOTE | 2018-10-10 13:17 | ED PDOC ---
Post-Departure Follow-Up dr gonzalez faxed formal report of cxr for fu Maximino Murrieta MD Oct 10, 2018 13:17
== END 2018-10-09 01:43 | disposition home or self-care (01) ==
LOC: M ED 22:32
DX: N39.0 Urinary tract infection, site not specified (principal); N18.3 Chronic kidney disease, stage 3 (moderate); J44.9 Chronic obstructive pulmonary disease, unspecified; E11.9 Type 2 diabetes mellitus without complications; I11.0 Hypertensive heart disease with heart failure; I50.9 Heart failure, unspecified; E07.9 Disorder of thyroid, unspecified; G62.9 Polyneuropathy, unspecified; Z95.0 Presence of cardiac pacemaker; Z95.1 Presence of aortocoronary bypass graft; Z95.5 Presence of coronary angioplasty implant and graft; Z79.899 Other long term (current) drug therapy; Z79.82 Long term (current) use of aspirin; Z79.4 Long term (current) use of insulin; Z88.1 Allergy status to other antibiotic agents; Z88.8 Allergy status to other drugs, medicaments and biological substances

== ENCOUNTER → 2018-10-10 | Outpatient (REF) | payer OTHER ==
[~2018-10-10] MED LIST changes: +KEFL500C17 PO
[2018-10-10 20:23] LABS: AMORPHOUS SEDIMENT SMALL (NEGATIVE); APPEARANCE, URINE HAZY (CLEAR); BACTERIA, URINE AUTO NEGATIVE (NEGATIVE); BILIRUBIN, URINE AUTO NEGATIVE (NEGATIVE); BLOOD, URINE BLOOD NEGATIVE (NEGATIVE); COLOR, URINE YELLOW (YELLOW); GLUCOSE, URINE (UA) AUTO 2+ mg/dL (NEGATIVE); KETONE, URINE AUTO NEGATIVE (NEGATIVE); LEUKOCYTE ESTERASE, URINE AUTO TRACE (NEGATIVE); NITRITE, URINE AUTO NEGATIVE (NEGATIVE); PROTEIN, URINE AUTO 2+ mg/dL (NEGATIVE); RBC, URINE AUTO 7 /HPF (0-3); SPECIFIC GRAVITY URINE AUTO 1.011 (1.002-1.035); SQUAMOUS EPITHELIAL CELL UR AU 3 /HPF (0-6); TRANSITIONAL EPITHELIAL AUTO 1 /HPF; UROBILINOGEN, URINE AUTO 0.2 mg/dL (0.0-2.0); WBC, URINE AUTO 12 /HPF (0-3)
== END ==
LOC: M SMT 18:09
PROVIDERS: ATTEND Nurse Practitioner Women's Health
DX: R31.0 Gross hematuria (principal)

== ENCOUNTER → 2018-10-28 | Outpatient (REF) | payer OTHER ==
[2018-10-28 15:07] LABS: HEMOGLOBIN A1c 11.7 %
== END ==
LOC: M SFHCPLAZ 13:15
PROVIDERS: ATTEND Family Medicine
DX: E11.69 Type 2 diabetes mellitus with other specified complication (principal)

== ENCOUNTER 2018-11-20 12:02 | Inpatient (IN) | payer OTHER ==
[~2018-11-20] VITALS: Ht 175.3 cm; Wt 97.3 kg
[2018-11-20] MEDS ORDERED: NS 1,000 ML IV ONE (12:45)
--- NOTE | 2018-11-20 13:16 | REP ---
CT Head without contrast HISTORY: Dizziness COMPARISON: None There is no intraparenchymal hemorrhage, acute infarct, mass or midline shift. The ventricular system and cortical sulci are dilated consistent with minimal volume loss. There is no extra cerebral collection. There is no fracture. A punctate metallic density is present medial to the the left anterior clinoid process. The visualized sinuses are clear. IMPRESSION: Minimal volume loss. Electronically Signed by Cayden Patterson MD 11/20/2018 01:07 P
[2018-11-20 13:29] LABS: BASO % 0.6 % (0.0-1.0); EOS % 0.4 % (0.0-3.0); HEMATOCRIT 46.1 % (36.0-47.0); LYMPH % 19.8 % (24.0-44.0); MEAN CORPUSCULAR HEMOGLOBIN 23.3 pg (27.0-33.0); MEAN CORPUSCULAR HGB CONC 30.4 g/dl (32.0-36.5); MEAN CORPUSCULAR VOLUME 76.7 fl (80.0-96.0); MONO # 0.4 10^3/uL (0.0-0.8); NEUTROPHILS # 3.7 10^3/uL (1.8-7.7); PLATELET COUNT, AUTOMATED 207 10^3/uL (150-450); RED BLOOD COUNT 6.01 10^6/uL (4.00-5.40); WHITE BLOOD COUNT 5.3 10^3/uL (4.0-10.0)
[2018-11-20 13:35] LABS: VENOUS BASE EXCESS 6.4 (-2.0-2.0); VENOUS O2 SATURATION 52.7 % (60.0-80.0); VENOUS PARTIAL PRESSURE CO2 54.9 mmHg (38.0-50.0); VENOUS PARTIAL PRESSURE O2 29.7 mmHg (30.0-50.0); VENOUS PH 7.397 UNITS (7.330-7.430); VENOUS STANDARD HCO3 29.1 MEQ/L; VENOUS TOTAL CO2 34.7 MEQ/L (24.0-28.0)
--- NOTE | 2018-11-20 13:46 | REP ---
CHEST, SINGLE VIEW: Two views of the chest is performed. COMPARISON: 10/08/2018 There is no acute infiltrate. The heart is not enlarged. Mediastinal silhouette is unremarkable. There is mild calcification of the thoracic aorta. Multiple sternal wires are present. There is a left pacemaker again noted. IMPRESSION: No acute infiltrate. Electronically Signed by Lucian Garcia MD 11/21/2018 09:03 A
[2018-11-20] MEDS ORDERED: WARF-22 PO (14:27)
[2018-11-20] MEDS ORDERED: FURO80TA2 PO (14:27)
[2018-11-20 14:36] LABS: BLOOD UREA NITROGEN 71 MG/DL (7-18); CALCIUM LEVEL 9.2 MG/DL (8.5-10.1); CARBON DIOXIDE LEVEL 35 MEQ/L (21-32); CHLORIDE LEVEL 80 MEQ/L (98-107); CPK CREATINE PHOSPHOKINASE 51 U/L (26-192); CREATININE FOR GFR 2.26 MG/DL (0.55-1.30); GLOMERULAR FILTRATION RATE 23.8 (>51); GLUCOSE, FASTING 597 MG/DL (70-100); MAGNESIUM LEVEL 2.2 MG/DL (1.8-2.4); MB/CK RELATIVE INDEX 2.55 (< OR =4); POTASSIUM SERUM 3.2 MEQ/L (3.5-5.1); SODIUM LEVEL 127 MEQ/L (136-145); THYROID STIMULATING HORMONE 0.646 uIU/ML (0.358-3.740); TROPONIN I < 0.02 NG/ML (< 0.10)
[2018-11-20] MEDS ORDERED: HumuLIN R (REGULAR) INSULIN (NovoLIN R) **100U/ML** PER UNIT IV ONE (14:45)
[2018-11-20] MEDS ORDERED: GLUCAGON FOR INJ 1 MG VIAL (J1610) SC PRN (15:30)
[2018-11-20] MEDS ORDERED: IPRATROPIUM 0.5MG/ALBUTEROL 2.5MG INH SOL UD 3ML (DUONEB)(J7620) NEB PRN (15:30)
[2018-11-20] MEDS ORDERED: DEXTROSE 50% 50 ML SYRINGE IV PRN (15:30)
[2018-11-20] MEDS ORDERED: GLUCOSE 4 GM CHEW TABLET PO PRN (15:30)
[2018-11-20] MEDS: HumaLOG INSULIN (NovoLOG) PER UNIT SC SCH ×2 (15:30→18:33)
[2018-11-20] MEDS ORDERED: BASA100I SC (15:38)
[2018-11-20] MEDS ORDERED: TRUL10IN SC (15:38)
[2018-11-20] MEDS ORDERED: METO5TA PO (15:38)
[2018-11-20] MEDS ORDERED: IPRA0.00 NEB (15:38)
[2018-11-20] MEDS ORDERED: ADME100I SC ×2 (15:38→15:40)
[2018-11-20] MEDS: NS 1,000 ML IV SCH (15:59)
[2018-11-20] MEDS: NICOTINE 21MG/24HR 1 EA TRANSDERMAL TD SCH (17:02)
[2018-11-20] MEDS: PREGABALIN 75 MG CAP(LYRICA) PO SCH ×2 (17:02→21:14)
[2018-11-20] MEDS: WARFARIN SOD 5 MG TAB PO SCH (17:02)
--- NOTE | 2018-11-20 20:07 | ECGEPIP ---
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
[2018-11-20 20:10] VITALS: BP 118/64
[2018-11-20] MEDS ORDERED: POTASSIUM CHL PWD 20 MEQ PACKET PO SCH (21:00)
[2018-11-20] MEDS ORDERED: KCL 10MEQ/100ML SWI (KRUN) 10 MEQ in APPROPRIATE DILUENT 1 EA IV ONE (21:00)
--- NOTE | 2018-11-20 21:01 | HPEPDOC ---
General Date of Admission Nov 20, 2018 at 15:27 Date of Service: Nov 20, 2018 Chief Complaint The patient is a 58-year-old female admitted with a reason for visit of Hyperglycemia. Source: Patient History of Present Illness 58 yo F with a history of hypothyroidism, [place] and CAD s/p bypass surgery x2, COPD, active smoker, uncontrolled DM, mechanical heart valve, presented to the ED with dizziness. The patient went to get blood testing for INR check, but in the clinic, she complained of dizziness, for which she was sent to the ED for further evaluation. Per patient, she has had frequent urination, feeling thirsty all the time, and she has lost weight, although she eats and drinks very often. She denies abdominal pain, nausea, vomiting, or dizziness. Denies chest pain, pa lpitation, or shortness of breath. In the ED, she was found to be hyperglycemic, hyponatremic, hypokalemic, and she received 15 units of regular insulin and IV hydration. She is admitted for further evaluation. Home Medications Scheduled Aspirin (Aspir 81) 81 Mg Tab, 81 MG PO DAILY, (Reported) Atorvastatin Calcium (Atorvastatin Calcium) 80 Mg Tab, 80 MG PO QHS, (Reported) Carvedilol (Carvedilol) 6.25 Mg Tab, 6.25 MG PO BID, (Reported) Dulaglutide (Trulicity) 0.75 Mg/0.5 Ml Pen.injctr, 0.75 MG SC QWEEK, (Reported) TUESDAYS Fluticasone Propion/Salmeterol (Advair Hfa 115-21 Mcg Inhaler) 12 Gm Hfa.aer.ad, 2 PUFF INH BID, (Reported) Furosemide (Furosemide) 80 Mg Tablet, 80 MG PO BID, (Reported) Insulin Glargine,Hum.rec.anlog (Basaglar Kwikpen U-100) 100 Unit/1 Ml Insuln.pen, 60 UNIT SC BID, (Reported) Insulin Lispro (Admelog) 100 Unit/1 Ml Vial, 20 UNITS SC ACS, (Reported) Insulin Lispro (Admelog) 100 Unit/1 Ml Vial, 10 UNIT SC BID, (Reported) BEFORE BREAKFAST AND LUNCH Levothyroxine Sodium (Levoxyl) 137 Mcg Tab, 137 MCG PO DAILY, (Reported) Metformin HCl (Metformin HCl) 1,000 Mg Tab, 1,000 MG PO BID, (Reported) Metolazone (Metolazone) 5 Mg Tablet, 2.5 MG PO DAILY, (Reported) Paroxetine HCl (Paroxetine) 10 Mg Tablet, 10 MG PO DAILY, (Reported) Pregabalin (Lyrica) 75 Mg Cap, 75 MG PO TID, (Reported) Ranitidine HCl (Ranitidine HCl) 150 Mg Cap, 1 CAP PO BID, (Reported) Warfarin Sodium (Warfarin Sodium) 10 Mg Tablet, 10 MG PO 6XWK, (Reported) MON//SUN//SUN/SAT EVENING Scheduled PRN Albuterol Sulfate (Ventolin Hfa) 18 Gm Hfa.aer.ad, 2 PUFF INH Q4H PRN for SHORTNESS OF BREATH, (Reported) Benzonatate (Benzonatate) 100 Mg Capsule, 100 MG PO TID PRN for COUGH, (Reported) Ipratropium/Albuterol Sulfate (Iprat-Albut 0.5-3(2.5) mg/3 ml) 3 Ml Ampul.neb, 1 VIAL NEB BID PRN for SHORTNESS OF BREATH, (Reported) Zolpidem Tartrate (Zolpidem Tartrate) 5 Mg Tab, 5 MG PO QHS PRN for SLEEP, (Reported) Allergies Coded Allergies: ciprofloxacin (Verified Adverse Reaction, Intermediate, Severe Diarrhea, 09/11/18) heparin (Verified Adverse Reaction, Intermediate, Heparin Induced Thrombocytopenia, 10/01/18) UPDATE: LOVENOX CHALLENGE 09/2018 RESULTED IN NO REDUCTION INPLATELET COUNTS Past Medical History Medical History hypothyroidism, [place] and CAD s/p bypass surgery x2, COPD, active smoker, uncontrolled DM, mechanical heart valve Surgical History Heart bypass surgery x2 Family History Father [place] Social History * Smoker: current smoker Alcohol: Denies Drugs: denies see above A-FIB/CHADSVASC A-FIB History Current/History of A-Fib/PAF?: No Review of Systems Constitutional: Reports: Weakness, Fatigue, Weight Loss Eyes: Denies: Pain, Vision change, Conjunctivae inflammation, Eyelid inflammation, Redness, Other ENT: Denies: Head Aches, Ear Pain, Dysphagia, Sinus Congestion, Post Nasal Drip, Sore Throat, Epistaxis, Other Symptoms Pulmonary: Denies: Dyspnea, Cough, Pleuritic Chest Pain, Other Symptoms Cardiovascular: Denies: Chest Pain, Palpitations, Orthopnea, Paroxysmal Noc. Dyspnea, Edema, Lt Headedness, Other Symptoms Gastrointestinal: Denies: Nausea, Vomiting, Abdominal Pain, Diarrhea, Constipation, Melena, Hematochezia, Other Symptoms Genitourinary: Reports: Frequency Hematologic: Denies: Bruising, Bleeding Excessively, Petecchia, Purpura, Enlarged Lymph Nodes, Other Hematologic Endocrine: Denies: Polydipsia, Polyphagia, Polyuria, Heat Intolerance, Cold Intolerance, Other Endocrine Sx Musculoskeletal: Denies: Neck Pain, Back Pain, Shoulder Pain, Arm Pain, Hand Pain, Leg Pain, Foot Pain, Joint Pain, Muscle Pain, Spasms, Other Symptoms Neurological: Denies: Weakness, Numbness, Incoordination, Change in speech, Confusion, Seizures, Other Symptoms Psych: Denies: Mood Normal, Anxiety, Depression, Memory Issues, Thoughts of Self Harm, Anger, Thoughts of Harming Other, Other Psych Physical Examination General Exam: Positive: Alert Eye Exam: Positive: PERRLA ENT Exam: Positive: Atraumatic, Mucous membr. moist/pink Neck Exam: Positive: Supple Chest Exam: Positive: Clear to auscultation Heart Exam: Positive: Rate Normal Telemetry: Positive: No significant arrhythmia Abdomen Exam: Positive: Normal bowel sounds Extremity Exam: Positive: Normal pulses Skin Exam: Positive: Nl turgor and temperature Neuro Exam: Positive: Normal Gait Psych Exam: Positive: Mental status NL Vital Signs Vital Signs Date Time Temp Pulse Resp B/P (MAP) Pulse Ox O2 Delivery O2 Flow Rate FiO2 11/20/18 20:00 81 11/20/18 18:45 85/53 (64) 11/20/18 18:30 94 11/20/18 12:30 20 Room Air 11/20/18 12:22 97.0 Laboratory Data Labs 24H Laboratory Tests 2 11/20/18 13:17: Immature Granulocyte % (Auto) 0.2, White Blood Count 5.3, Red Blood Count 6.01H, Hemoglobin 14.0, Hematocrit 46.1, Mean Corpuscular Volume 76.7L, Mean Corpuscular Hemoglobin 23.3L, Mean Corpuscular Hemoglobin Concent 30.4L, Red Cell Distribution Width 20.5H, Platelet Count 207, Neutrophils (%) (Auto) 71.0H, Lymphocytes (%) (Auto) 19.8L, Monocytes (%) (Auto) 8.0H, Eosinophils (%) (Auto) 0.4, Basophils (%) (Auto) 0.6, Neutrophils # (Auto) 3.7, Lymphocytes # (Auto) 1.0L, Monocytes # (Auto) 0.4, Eosinophils # (Auto) 0.0, Basophils # (Auto) 0.0, Nucleated Red Blood Cells % (auto) 0.0, Blood Gas Bicarbonate Standard 29.1, Venous Blood pH 7.397, Venous Blood Partial Pressure CO2 54.9H, Venous Blood Partial Pressure O2 29.7L, Venous Blood Total Carbon Dioxide 34.7H, Venous Blood HCO3 33.0H, Venous Blood Oxygen Saturation 52.7L, Venous Blood Base Excess 6.4H, Anion Gap 12, Glomerular Filtration Rate 23.8L, Blood Urea Nitrogen 71H, Creatinine 2.26H, Sodium Level 127L, Potassium Level 3.2L, Chloride Level 80L, Carbon Dioxide Level 35H, Calcium Level 9.2, Total Creatine Kinase 51, Magnesium Level 2.2, Creatine Kinase MB 1.0, Creatine Kinase MB Relative Index 2.55, Troponin I < 0.02, Thyroid Stimulating Hormone (TSH) 0.646, Ethyl Alcohol Level < 0.003 11/20/18 15:30: Bedside Glucose (Misc Panel) 506*H 11/20/18 16:37: Bedside Glucose (Misc Panel) 333H 11/20/18 17:40: Bedside Glucose (Misc Panel) 342H 11/20/18 18:36: Bedside Glucose (Misc Panel) 316H 11/20/18 19:46: Bedside Glucose (Misc Panel) 357H CBC/BMP Laboratory Tests 11/20/18 13:17 Red Blood Count 6.01 H, Mean Corpuscular Volume 76.7 L, Mean Corpuscular Hemoglobin 23.3 L, Mean Corpuscular Hemoglobin Concent 30.4 L, Red Cell Distribution Width 20.5 H, Neutrophils (%) (Auto) 71.0 H, Lymphocytes (%) (Auto) 19.8 L, Monocytes (%) (Auto) 8.0 H, Eosinophils (%) (Auto) 0.4, Basophils (%) (Auto) 0.6, Neutrophils # (Auto) 3.7, Lymphocytes # (Auto) 1.0 L, Monocytes # (Auto) 0.4, Eosinophils # (Auto) 0.0, Basophils # (Auto) 0.0, Calcium Level 9.2, Total Creatine Kinase 51 Problems (1) Hyperglycemia Status: Acute Problem Text: # Uncontrolled hyperglycemia, hyponatremia, hypokalemia, dehydration - Serum glucose is 590. She has had polyuria, polydipsia, although she was taking lantus 60 units BID plus sliding scale. - The anion gap is not open. - This seems to be DM treatment failure and DM progression. - Will start sliding scale, aggressive regimen, q3h, and continue detemir 60 units BID and see how many units she requires over 24 hours. Will re-adjust long acting insulin based on this. - Cont. KCl and IV hydration. - Follow HbA1C # HTN, CAD, hypothyroidism, HLD - Cont. aspirin, atorvastatin, coreg, and levothyroxine. # Mechanical valve of the heart - Continue coumadin 10 mg daily and follow daily INR # Insomnia and depression - Continue her home med, zolpidem and paroxetin. # GERD - Continue zantac Plan / VTE VTE Prophylaxis Ordered?: Yes ZANE BURNETT MD Nov 20, 2018 21:01
[2018-11-20] MEDS: ATORVASTATIN 20 MG TAB PO SCH (21:13)
[2018-11-20] MEDS: zolPIDEM TARTRATE 5 MG TAB PO SCH (21:14)
[2018-11-20] MEDS: LEVEMIR (INSULIN DETEMIR) 1 UNITS/0.01ML SC SCH (21:28)
[2018-11-20] MEDS: raNITIdine SYRUP 150 MG/10 ML UDC PO SCH (22:39)
[2018-11-20] MEDS: EUCERIN 120GM CREAM TOP SCH (22:40)
[2018-11-20] MEDS: SYMBICORT 80/4.5MCG INHALER 6GM INH SCH (23:14)
[2018-11-21] MEDS: HumaLOG INSULIN (NovoLOG) PER UNIT SC SCH ×5 (01:40→21:27)
[2018-11-21] MEDS: NS 1,000 ML IV SCH (03:33)
[2018-11-21 05:58] LABS: HEMATOCRIT 44.3 % (36.0-47.0); HEMOGLOBIN 13.4 g/dl (12.0-15.5); MEAN CORPUSCULAR HEMOGLOBIN 22.8 pg (27.0-33.0); MEAN CORPUSCULAR HGB CONC 30.2 g/dl (32.0-36.5); MEAN CORPUSCULAR VOLUME 75.5 fl (80.0-96.0); PLATELET COUNT, AUTOMATED 195 10^3/uL (150-450); RED BLOOD COUNT 5.87 10^6/uL (4.00-5.40); WHITE BLOOD COUNT 4.4 10^3/uL (4.0-10.0)
[2018-11-21 06:00] VITALS: BP 130/55
[2018-11-21 06:01] LABS: INR 2.76; PROTHROMBIN TIME 29.8 SECONDS (12.1-14.4)
[2018-11-21 06:12] LABS: HEMOGLOBIN A1c 12.8 %
[2018-11-21] MEDS: LEVOTHYROXINE 137MCG TABLET (0.137MG) PO SCH (06:33)
[2018-11-21 06:36] LABS: ALBUMIN 3.1 GM/DL (3.2-5.2); BILIRUBIN,TOTAL 0.6 MG/DL (0.2-1.0); CALCIUM LEVEL 9.1 MG/DL (8.5-10.1); CREATININE FOR GFR 1.73 MG/DL (0.55-1.30); GLOMERULAR FILTRATION RATE 32.4 (>51); MAGNESIUM LEVEL 1.9 MG/DL (1.8-2.4); PHOSPHORUS LEVEL 3.1 MG/DL (2.5-4.9); POTASSIUM SERUM 2.6 MEQ/L (3.5-5.1)
[2018-11-21] MEDS: SYMBICORT 80/4.5MCG INHALER 6GM INH SCH ×2 (07:49→19:25)
[2018-11-21] MEDS ORDERED: KCL 10MEQ/100ML SWI (KRUN) 10 MEQ in APPROPRIATE DILUENT 1 EA IV ONE ×2 (08:00→12:00)
[2018-11-21] MEDS: NICOTINE 21MG/24HR 1 EA TRANSDERMAL TD SCH (09:00)
[2018-11-21] MEDS: PARoxetine 10MG TABLET PO SCH (09:20)
[2018-11-21] MEDS: POTASSIUM CHLORIDE 10 MEQ SR TABLET PO SCH ×4 (09:20→21:04)
[2018-11-21] MEDS: PREGABALIN 75 MG CAP(LYRICA) PO SCH ×3 (09:20→21:03)
[2018-11-21] MEDS: ASPIRIN 81 MG CHEW TABLET PO SCH (09:20)
[2018-11-21] MEDS: LEVEMIR (INSULIN DETEMIR) 1 UNITS/0.01ML SC SCH ×2 (09:20→21:28)
[2018-11-21] MEDS: EUCERIN 120GM CREAM TOP SCH ×2 (09:21→21:06)
[2018-11-21] MEDS: raNITIdine SYRUP 150 MG/10 ML UDC PO SCH ×2 (09:21→21:00)
[2018-11-21 14:00] VITALS: BP 136/66
[2018-11-21 14:16] LABS: ALBUMIN 3.4 GM/DL (3.2-5.2); BILIRUBIN,TOTAL 0.5 MG/DL (0.2-1.0); CALCIUM LEVEL 9.3 MG/DL (8.5-10.1); CREATININE FOR GFR 1.55 MG/DL (0.55-1.30); GLOMERULAR FILTRATION RATE 36.8 (>51); POTASSIUM SERUM 3.2 MEQ/L (3.5-5.1); TOTAL PROTEIN 7.8 GM/DL (6.4-8.2)
--- NOTE | 2018-11-21 14:56 | IPNPDOC ---
Subjective Date Seen The patient was seen on 11/21/18. Subjective Chief Complaint/HPI The patient feels much better today. She has no dizziness. No shaking or nightmares. No shortness of breath. No other complaints. General: Denies: ROS Unobtainable, Chills, Night Sweats, Fatigue, Malaise, Normal Appetite, Other Symptoms Constitutional: Denies: Chills, Fever, Malaise, Night Sweats, Weakness, Fatigue, Weight Loss, Lethargy, Other Eyes: Denies: Pain, Vision change, Conjunctivae inflammation, Eyelid inflammation, Redness, Other ENT: Denies: Head Aches, Ear Pain, Dysphagia, Sinus Congestion, Post Nasal Drip, Sore Throat, Epistaxis, Other Symptoms Skin: Denies: Rash, Lesions, Jaundice, Bruising, Itching, Dry, Breakdown, Nail Changes, Other Pulmonary: Denies: Dyspnea, Cough, Pleuritic Chest Pain, Other Symptoms Cardiovascular: Denies: Chest Pain, Palpitations, Orthopnea, Paroxysmal Noc. Dyspnea, Edema, Lt Headedness, Other Symptoms Gastrointestinal: Denies: Nausea, Vomiting, Abdominal Pain, Diarrhea, Constipation, Melena, Hematochezia, Other Symptoms Genitourinary: Denies: Dysuria, Frequency, Incontinence, Hematuria, Retention, Other Symptoms Hematologic: Denies: Bruising, Bleeding Excessively, Petecchia, Purpura, Enlarged Lymph Nodes, Other Hematologic Endocrine: Denies: Polydipsia, Polyphagia, Polyuria, Heat Intolerance, Cold Intolerance, Other Endocrine Sx Musculoskeletal: Denies: Neck Pain, Back Pain, Shoulder Pain, Arm Pain, Hand Pain, Leg Pain, Foot Pain, Joint Pain, Muscle Pain, Spasms, Other Symptoms Neurological: Denies: Weakness, Numbness, Incoordination, Change in speech, Confusion, Seizures, Other Symptoms Psych: Denies: Mood Normal, Anxiety, Depression, Memory Issues, Thoughts of Self Harm, Anger, Thoughts of Harming Other, Other Psych Objective Physical Examination General Exam: Positive: Alert Eye Exam: Positive: PERRLA ENT Exam: Positive: Atraumatic, Mucous membr. moist/pink Neck Exam: Positive: Supple Chest Exam: Positive: Clear to auscultation Heart Exam: Positive: Rate Normal Telemetry: Positive: No significant arrhythmia Abdomen Exam: Positive: Normal bowel sounds Extremity Exam: Positive: Normal pulses Skin Exam: Positive: Nl turgor and temperature Neuro Exam: Positive: Normal Gait Psych Exam: Positive: Mental status NL Assessment /Plan Problems (1) Hyperglycemia Status: Acute Problem Text: # Uncontrolled hyperglycemia, hyponatremia, hypokalemia, dehydration, Acute kidney injury - On IV hydration, hyponatremia has resolved. She is still hypokalemic, will continue to replete K. - Will calculate the total dose of insulin that she took over 24 hrs and convert it to long acting insulin. - Sliding scale changed to AC QHS. Continue lantus 60 BID. - This seems to be DM treatment failure and DM progression. A1C is 12.7. - Cont. KCl and IV hydration. - DORIE is resolving. # HTN, CAD, hypothyroidism, HLD - Cont. aspirin, atorvastatin, coreg, and levothyroxine. # Mechanical valve of the heart - Continue coumadin 10 mg daily and follow daily INR # Insomnia and depression - Continue her home med, zolpidem and paroxetin. # GERD - Continue zantac Plan/VTE VTE Prophylaxis Ordered?: Yes VS, I&O, 24H, [facility] Vital Signs/I&O Vital Signs Date Time Temp Pulse Resp B/P (MAP) Pulse Ox O2 Delivery O2 Flow Rate FiO2 11/21/18 14:00 96.9 72 19 136/66 (89) 97 11/20/18 12:30 Room Air I&O- Last 24 Hours up to 6 AM 11/21/18 06:00 Intake Total 2640 ml Output Total 1800 ml Balance 840 ml Laboratory Data 24H LABS Laboratory Tests 2 11/20/18 15:30: Bedside Glucose (Misc Panel) 506*H 11/20/18 16:37: Bedside Glucose (Misc Panel) 333H 11/20/18 17:40: Bedside Glucose (Misc Panel) 342H 11/20/18 18:36: Bedside Glucose (Misc Panel) 316H 11/20/18 19:46: Bedside Glucose (Misc Panel) 357H 11/20/18 21:11: Bedside Glucose (Misc Panel) 337H 11/21/18 01:14: Bedside Glucose (Misc Panel) 304H 11/21/18 05:21: Nucleated Red Blood Cells % (auto) 0.0, Prothrombin Time 29.8H, Prothromb Time International Ratio 2.76, Anion Gap 8, Glomerular Filtration Rate 32.4L, Estimated Mean Plasma Glucose 321H, Hemoglobin A1c 12.8, Blood Urea Nitrogen 64H, Creatinine 1.73H, Sodium Level 135#L, Potassium Level 2.6*L, Chloride Level 91L, Carbon Dioxide Level 36H, Calcium Level 9.1, Phosphorus Level 3.1, Aspartate Amino Transf (AST/SGOT) 18, Alanine Aminotransferase (ALT/SGPT) 24, Alkaline Phosphatase 122H, Total Bilirubin 0.6, Total Protein 8.0, Albumin 3.1L, Magnesium Level 1.9, Albumin/Globulin Ratio 0.63L 11/21/18 05:54: Bedside Glucose (Misc Panel) 81 11/21/18 11:22: Bedside Glucose (Misc Panel) 269H 11/21/18 13:05: Anion Gap 9, Glomerular Filtration Rate 36.8L, Blood Urea Nitrogen 61H, Creatinine 1.55H, Sodium Level 136, Potassium Level 3.2#L, Chloride Level 93L, Carbon Dioxide Level 34H, Calcium Level 9.3, Aspartate Amino Transf (AST/SGOT) 24, Alanine Aminotransferase (ALT/SGPT) 24, Alkaline Phosphatase 147H, Total Bilirubin 0.5, Total Protein 7.8, Albumin 3.4, Albumin/Globulin Ratio 0.77L CBC/BMP Laboratory Tests 11/21/18 05:21 Red Blood Count 5.87 H, Mean Corpuscular Volume 75.5 L, Mean Corpuscular Hemoglobin 22.8 L, Mean Corpuscular Hemoglobin Concent 30.2 L, Red Cell Distribution Width 20.8 H, Calcium Level 9.1, Phosphorus Level 3.1, Aspartate Amino Transf (AST/SGOT) 18, Alanine Aminotransferase (ALT/SGPT) 24, Alkaline Phosphatase 122 H, Total Bilirubin 0.6, Total Protein 8.0, Albumin 3.1 L 11/21/18 13:05 Calcium Level 9.3, Aspartate Amino Transf (AST/SGOT) 24, Alanine Aminotransferase (ALT/SGPT) 24, Alkaline Phosphatase 147 H, Total Bilirubin 0.5, Total Protein 7.8, Albumin 3.4 ZANE BURNETT MD Nov 21, 2018 14:56
[2018-11-21] MEDS: WARFARIN SOD 5 MG TAB PO SCH (17:37)
[2018-11-21] MEDS: zolPIDEM TARTRATE 5 MG TAB PO SCH (21:03)
[2018-11-21] MEDS: ATORVASTATIN 20 MG TAB PO SCH (21:03)
[2018-11-21 22:00] VITALS: BP 130/82
[2018-11-22 06:00] VITALS: BP 115/67
[2018-11-22 06:01] LABS: INR 3.14
[2018-11-22] MEDS: LEVOTHYROXINE 137MCG TABLET (0.137MG) PO SCH (06:10)
[2018-11-22 06:13] LABS: PHOSPHORUS LEVEL 3.1 MG/DL (2.5-4.9)
[2018-11-22] MEDS: SYMBICORT 80/4.5MCG INHALER 6GM INH SCH (07:11)
[2018-11-22] MEDS: HumaLOG INSULIN (NovoLOG) PER UNIT SC SCH (07:28)
[2018-11-22] MEDS: PARoxetine 10MG TABLET PO SCH (08:19)
[2018-11-22] MEDS: ASPIRIN 81 MG CHEW TABLET PO SCH (08:19)
[2018-11-22] MEDS: PREGABALIN 75 MG CAP(LYRICA) PO SCH (08:19)
[2018-11-22] MEDS: POTASSIUM CHLORIDE 10 MEQ SR TABLET PO SCH (08:19)
[2018-11-22] MEDS: raNITIdine SYRUP 150 MG/10 ML UDC PO SCH (08:19)
[2018-11-22] MEDS: LEVEMIR (INSULIN DETEMIR) 1 UNITS/0.01ML SC SCH (08:19)
[2018-11-22] MEDS: NICOTINE 21MG/24HR 1 EA TRANSDERMAL TD SCH (08:20)
[2018-11-22] MEDS: EUCERIN 120GM CREAM TOP SCH (08:21)
[2018-11-22 09:42] LABS: HEMATOCRIT 50.2 % (36.0-47.0); HEMOGLOBIN 14.6 g/dl (12.0-15.5); MEAN CORPUSCULAR HEMOGLOBIN 23.2 pg (27.0-33.0); MEAN CORPUSCULAR HGB CONC 29.1 g/dl (32.0-36.5); MEAN CORPUSCULAR VOLUME 79.7 fl (80.0-96.0); PLATELET COUNT, AUTOMATED 203 10^3/uL (150-450); WHITE BLOOD COUNT 4.7 10^3/uL (4.0-10.0)
[2018-11-22 09:48] LABS: ALBUMIN 3.4 GM/DL (3.2-5.2); BILIRUBIN,TOTAL 0.4 MG/DL (0.2-1.0); CALCIUM LEVEL 9.8 MG/DL (8.5-10.1); CREATININE FOR GFR 1.39 MG/DL (0.55-1.30); GLOMERULAR FILTRATION RATE 41.8 (>51); POTASSIUM SERUM 3.2 MEQ/L (3.5-5.1); TOTAL PROTEIN 8.5 GM/DL (6.4-8.2)
[2018-11-22] MEDS ORDERED: KLOR10TA76 PO (10:33)
[2018-11-22] MEDS ORDERED: NICO21PAT TD (10:33)
--- NOTE | 2018-11-22 21:40 | DS.PDOC ---
Discharge Summary General Date of Admission Nov 20, 2018 at 15:27 Date of Discharge 11/22/2018 Discharge Summary PROCEDURES PERFORMED DURING STAY: [None]. ADMITTING DIAGNOSES: 1. Dizziness and hyperglycemia DISCHARGE DIAGNOSES: 1. Uncontrolled hyperglycemia and DORIE COMPLICATIONS/CHIEF COMPLAINT: Hyperglycemia. HISTORY OF PRESENT ILLNESS: 58 yo F with a history of hypothyroidism, [place] and CAD s/p bypass surgery x2, COPD, active smoker, uncontrolled DM, mechanical heart valve, presented to the ED with dizziness. The patient went to get blood testing for INR check, but in the clinic, she complained of dizziness, for which she was sent to the ED for further evaluation. Per patient, she has had frequent urination, feeling thirsty all the time, and she has lost weight, although she eats and drinks very often. She denies abdominal pain, nausea, vomiting, or dizziness. Denies chest pain, palpitation, or shortness of breath. In the ED, she was found to be hyperglycemic, hyponatremic, hypokalemic, and she received 15 units of regular insulin and IV hydration. She is admitted for further evaluation. HOSPITAL COURSE: She was found to have uncontrolled hyperglycemia, hyponatremia, hypokalemia, dehydration, Acute kidney injury. She was taking lasix 80 BID plus metolazone, and this seems to be the cause. She was put on IV hydration, and hyponatremia has resolved. Hypokalemia was repleted. Home dose of insulin 60 BID was continued, and glucose was well controlled. Repeat A1C is 12.7. DORIE has re solved before she was discharged. She will not be starting back on metolazone or lasix. She will need to see her primary care physician again before lasix is resumed. For HTN, CAD, hypothyroidism, HLD, continue aspirin, atorvastatin, coreg, and levothyroxine. For mechanical valve of the heart, continue coumadin 10 mg daily and follow daily INR, which has been therapeutic. For insomnia and depression, continue her home med, zolpidem and paroxetin. DISCHARGE MEDICATIONS: Please see below. ALLERGIES: Please see below. PHYSICAL EXAMINATION ON DISCHARGE: VITAL SIGNS: Please see below. General Exam: Positive: Alert Eye Exam: Positive: PERRLA ENT Exam: Positive: Atraumatic, Mucous membr. moist/pink Neck Exam: Positive: Supple Chest Exam: Positive: Clear to auscultation Heart Exam: Positive: Rate Normal Telemetry: Positive: No significant arrhythmia Abdomen Exam: Positive: Normal bowel sounds Extremity Exam: Positive: Normal pulses Skin Exam: Positive: Nl turgor and temperature Neuro Exam: Positive: Normal Gait Psych Exam: Positive: Mental status NL LABORATORY DATA: Please see below. DISCHARGE PLAN: Follow up with primary care physician within 4 days. DISPOSITION: 01 Home, Self-Care. Vital Signs/I&Os Vital Signs Date Time Temp Pulse Resp B/P (MAP) Pulse Ox O2 Delivery O2 Flow Rate FiO2 11/22/18 06:00 97.2 71 20 115/67 (83) 96 11/20/18 12:30 Room Air I&O- Last 24 Hours up to 6 AM 11/22/18 06:00 Intake Total 2500 ml Output Total 2750 ml Balance -250 ml Laboratory Data Labs 24H Laboratory Tests 2 11/22/18 05:19: Nucleated Red Blood Cells % (auto) 0.0, Prothrombin Time 33.0H, Prothromb Time International Ratio 3.14, Anion Gap 8, Glomerular Filtration Rate 41.8L, Blood Urea Nitrogen 51H, Creatinine 1.39H, Sodium Level 142, Potassium Level 3.2L, Chloride Level 101, Carbon Dioxide Level 33H, Calcium Level 9.8, Phosphorus Level 3.1, Aspartate Amino Transf (AST/SGOT) 26, Alanine Aminotransferase (ALT/SGPT) 24, Alkaline Phosphatase 119H, Total Bilirubin 0.4, Total Protein 8.5H, Albumin 3.4, Albumin/Globulin Ratio 0.67L 11/22/18 06:03: Bedside Glucose (Misc Panel) 91 CBC/BMP Laboratory Tests 11/22/18 05:19 Red Blood Count 6.30 H, Mean Corpuscular Volume 79.7 L, Mean Corpuscular Hemoglobin 23.2 L, Mean Corpuscular Hemoglobin Concent 29.1 L, Red Cell Distribution Width 21.3 H, Calcium Level 9.8, Phosphorus Level 3.1, Aspartate Amino Transf (AST/SGOT) 26, Alanine Aminotransferase (ALT/SGPT) 24, Alkaline Phosphatase 119 H, Total Bilirubin 0.4, Total Protein 8.5 H, Albumin 3.4 FSBS Laboratory Tests Test 11/22/18 06:03 Range/Units Bedside Glucose (Misc Panel) 91 70-105 MG/DL Discharge Medications Scheduled Aspirin (Aspir 81) 81 Mg Tab, 81 MG PO DAILY, (Reported) Atorvastatin Calcium (Atorvastatin Calcium) 80 Mg Tab, 80 MG PO QHS, (Reported) Carvedilol (Carvedilol) 6.25 Mg Tab, 6.25 MG PO BID, (Reported) Dulaglutide (Trulicity) 0.75 Mg/0.5 Ml Pen.injctr, 0.75 MG SC QWEEK, (Reported) TUESDAYS Fluticasone Propion/Salmeterol (Advair Hfa 115-21 Mcg Inhaler) 12 Gm Hfa.aer.ad, 2 PUFF INH BID, (Reported) Insulin Glargine,Hum.rec.anlog (Basaglar Kwikpen U-100) 100 Unit/1 Ml Insuln.pen, 60 UNIT SC BID, (Reported) Insulin Lispro (Admelog) 100 Unit/1 Ml Vial, 20 UNITS SC ACS, (Reported) Insulin Lispro (Admelog) 100 Unit/1 Ml Vial, 10 UNIT SC BID, (Reported) BEFORE BREAKFAST AND LUNCH Levothyroxine Sodium (Levoxyl) 137 Mcg Tab, 137 MCG PO DAILY, (Reported) Metformin HCl (Metformin HCl) 1,000 Mg Tab, 1,000 MG PO BID, (Reported) Nicotine (Nicotine Patch) 21 Mg Patch.td24, 1 PATCH TD DAILY Paroxetine HCl (Paroxetine) 10 Mg Tablet, 10 MG PO DAILY, (Reported) Potassium Chloride (Klor-Con M10) 10 Meq Tab.er.prt, 40 MEQ PO BID Pregabalin (Lyrica) 75 Mg Cap, 75 MG PO TID, (Reported) Ranitidine HCl (Ranitidine HCl) 150 Mg Cap, 1 CAP PO BID, (Reported) Warfarin Sodium (Warfarin Sodium) 10 Mg Tablet, 10 MG PO 6XWK, (Reported) MON//SUN//FRI/SAT EVENING Scheduled PRN Albuterol Sulfate (Ventolin Hfa) 18 Gm Hfa.aer.ad, 2 PUFF INH Q4H PRN for SHORTNESS OF BREATH, (Reported) Benzonatate (Benzonatate) 100 Mg Capsule, 100 MG PO TID PRN for COUGH, (Reported) Ipratropium/Albuterol Sulfate (Iprat-Albut 0.5-3(2.5) mg/3 ml) 3 Ml Ampul.neb, 1 VIAL NEB BID PRN for SHORTNESS OF BREATH, (Reported) Zolpidem Tartrate (Zolpidem Tartrate) 5 Mg Tab, 5 MG PO QHS PRN for SLEEP, (Reported) Allergies Coded Allergies: ciprofloxacin (Verified Adverse Reaction, Intermediate, Severe Diarrhea, 09/11/18) heparin (Verified Adverse Reaction, Intermediate, Heparin Induced Thrombocytopenia, 10/01/18) UPDATE: LOVENOX CHALLENGE 09/2018 RESULTED IN NO REDUCTION INPLATELET COUNTS ZANE BURNETT MD Nov 22, 2018 21:40
== END 2018-11-22 11:35 | disposition home or self-care (01) | DRG 420 ==
LOC: M ED 12:02 → M ED INP 15:27 → M MSPAV 20:10
PROVIDERS: ADMIT Internal Medicine; ATTEND Internal Medicine
DX: E11.65 Type 2 diabetes mellitus with hyperglycemia (principal); N17.9 Acute kidney failure, unspecified; E87.6 Hypokalemia; E87.1 Hypo-osmolality and hyponatremia; E03.9 Hypothyroidism, unspecified; I25.2 Old myocardial infarction; I25.10 Atherosclerotic heart disease of native coronary artery without angina pectoris; J44.9 Chronic obstructive pulmonary disease, unspecified; F17.200 Nicotine dependence, unspecified, uncomplicated; Z95.1 Presence of aortocoronary bypass graft; Z79.899 Other long term (current) drug therapy; Z79.82 Long term (current) use of aspirin; Z88.8 Allergy status to other drugs, medicaments and biological substances; F32.9 Major depressive disorder, single episode, unspecified; G47.00 Insomnia, unspecified; K21.9 Gastro-esophageal reflux disease without esophagitis

== ENCOUNTER → 2018-12-26 | Outpatient (REF) | payer OTHER ==
[~2018-12-26] MED LIST changes: +ADME100I SC; +BASA100I SC; -DULO1CAP2 PO; +DULO1CAP5 PO; +METO5TA PO; +NICO21PAT TD; +TRUL10IN SC; +WARF-22 PO
== END ==
LOC: M SFHCPLAZ 15:01
PROVIDERS: ATTEND Surgery
DX: T14.8XXA Other injury of unspecified body region, initial encounter (principal)

== ENCOUNTER → 2019-01-24 | Outpatient (REF) | payer OTHER ==
[2019-01-24 16:06] LABS: INR 3.03; PROTHROMBIN TIME 31.3 SECONDS (11.8-14.0)
[2019-01-24 16:24] LABS: CHOLESTEROL RISK RATIO 2.717 (<5)
[2019-01-24 17:51] LABS: CREATININE, URINE 32.5 MG/DL; MAU/CREAT RATIO 1452.3 MCG/MG (0.0-30.0)
== END ==
LOC: M SFHCPLAZ 14:15
DX: E11.622 Type 2 diabetes mellitus with other skin ulcer (principal); I25.10 Atherosclerotic heart disease of native coronary artery without angina pectoris; Z51.81 Encounter for therapeutic drug level monitoring

== ENCOUNTER → 2019-03-24 | Outpatient (REF) | payer OTHER ==
[~2019-03-24] MED LIST changes: +ADLY20IN SC; +DOXY100T PO; +FURO40TA2 PO; +HYDR-3363 PO; +HYDR1CR TOP; +LISI-542 PO; +POTA20TA6 PO; +PREG150C PO; +Petrolatum,White TOP; +STEG15TA PO; +VANI1CRE5 TOP; +VARE1TA PO
[2019-03-29 08:06] LABS: ADRENOCORTICOTROPHIC HORMONE 17.2 pg/mL (7.2-63.3); DEHYDROEPIANDROSTERONE SULFATE 13.4 ug/dL (29.4-220.5)
== END ==
LOC: M SFHCPLAZ 11:45
PROVIDERS: ATTEND Family Medicine
DX: D35.02 Benign neoplasm of left adrenal gland (principal)

== ENCOUNTER 2019-04-15 18:36 | Inpatient (IN) | payer OTHER ==
[~2019-04-15] VITALS: Ht 175.3 cm; Wt 91.5 kg
[~2019-04-15 18:36] MED LIST changes: -ADLY20IN SC; -DOXY100T PO; -FURO40TA2 PO; -HYDR-3363 PO; -HYDR1CR TOP; -LISI-542 PO; -POTA20TA6 PO; -PREG150C PO; -Petrolatum,White TOP; -STEG15TA PO; -VANI1CRE5 TOP; -VARE1TA PO
[2019-04-15 19:57] LABS: HEMATOCRIT 45.2 % (36.0-47.0); HEMOGLOBIN 14.2 g/dl (12.0-15.5); MEAN CORPUSCULAR HGB CONC 31.4 g/dl (32.0-36.5); MEAN CORPUSCULAR VOLUME 79.6 fl (80.0-96.0); PLATELET COUNT, AUTOMATED 211 10^3/uL (150-450); RED BLOOD COUNT 5.68 10^6/uL (4.00-5.40); WHITE BLOOD COUNT 8.9 10^3/uL (4.0-10.0)
[2019-04-15 21:03] LABS: ALBUMIN 2.9 GM/DL (3.2-5.2); BILIRUBIN,TOTAL 0.3 MG/DL (0.2-1.0); C REACTIVE PROTEIN QUANTITATIV 10.6 MG/DL (0.00-0.30); CALCIUM LEVEL 9.1 MG/DL (8.5-10.1); CREATININE FOR GFR 1.53 MG/DL (0.55-1.30); GLOMERULAR FILTRATION RATE 37.4 (>51); POTASSIUM SERUM 4.4 MEQ/L (3.5-5.1); TOTAL PROTEIN 7.2 GM/DL (6.4-8.2)
[2019-04-15] MEDS: MORPHINE 2 MG/ML 1ML VIAL (J2270) IV PRN ×2 (21:07→22:20)
[2019-04-15] MEDS ORDERED: HumaLOG INSULIN (NovoLOG) PER UNIT SC STA (21:55)
[2019-04-15] MEDS ORDERED: PIPERACILLIN/TAZOBACTAM SOD 3.375 GM in D5W MINI-BAG PLUS 50 ML IV ONE (22:00)
[2019-04-15] MEDS ORDERED: FURO40TA2 PO (22:26)
[2019-04-15] MEDS ORDERED: LISI-542 PO (22:26)
[2019-04-15] MEDS ORDERED: ADLY20IN SC (22:26)
[2019-04-15] MEDS ORDERED: STEG15TA PO (22:26)
[2019-04-15] MEDS ORDERED: POTA20TA6 PO (22:26)
[2019-04-15] MEDS ORDERED: PREG150C PO (22:29)
[2019-04-15] MEDS ORDERED: GLUCAGON FOR INJ 1 MG VIAL (J1610) SC PRN (22:30)
[2019-04-15] MEDS ORDERED: ONDANSETRON 4MG/2ML VIAL (J2405) IV PRN (22:30)
[2019-04-15] MEDS ORDERED: DEXTROSE 50% 50 ML SYRINGE IV PRN (22:30)
[2019-04-15] MEDS: LEVEMIR (INSULIN DETEMIR) 1 UNITS/0.01ML SC SCH (22:42)
[2019-04-15] MEDS ORDERED: VANCOMYCIN HCL 1,000 MG, VIAL MATE ADAPTER 1 EACH in D5W 250 ML IV ONE (23:00)
[2019-04-16] MEDS: HumaLOG INSULIN (NovoLOG) PER UNIT SC SCH ×5 (00:12→19:55)
[2019-04-16] MEDS ORDERED: HumaLOG INSULIN (NovoLOG) PER UNIT SC STA (00:25)
[2019-04-16] MEDS ORDERED: NS 1,000 ML IV ONE (00:30)
[2019-04-16] MEDS ORDERED: BENZONATATE 100 MG CAP PO PRN (00:30)
[2019-04-16] MEDS ORDERED: IPRATROPIUM 0.5MG/ALBUTEROL 2.5MG INH SOL UD 3ML (DUONEB)(J7620) NEB PRN (00:30)
[2019-04-16] MEDS ORDERED: ALBUTEROL 90 MCG/ACT 8GM HFA INHALER INH PRN (00:30)
[2019-04-16] MEDS ORDERED: zolPIDEM TARTRATE 5 MG TAB PO PRN (00:30)
[2019-04-16 00:45] VITALS: BP 123/59
[2019-04-16] MEDS ORDERED: WARFARIN SOD 5 MG TAB PO ONE (01:00)
[2019-04-16] MEDS: ATORVASTATIN 20 MG TAB PO SCH ×2 (01:20→20:44)
[2019-04-16] MEDS: FAMOTIDINE 20 MG TAB PO SCH ×3 (01:21→20:44)
[2019-04-16] MEDS: CARVedilol 6.25 MG TAB PO SCH ×3 (01:21→20:44)
[2019-04-16 01:32] LABS: PROTHROMBIN TIME 50.7 SECONDS (11.8-14.0)
[2019-04-16 01:59] LABS: HEMOGLOBIN A1c 14.5 %
[2019-04-16 02:36] LABS: INR 5.53
[2019-04-16 02:37] LABS: ACETONE/KETONE 0.92 MG/DL (<2.81); CALCIUM LEVEL 9.2 MG/DL (8.5-10.1); CREATININE FOR GFR 1.32 MG/DL (0.55-1.30); GLOMERULAR FILTRATION RATE 44.3 (>51); THYROID STIMULATING HORMONE 4.66 uIU/ML (0.358-3.740)
[2019-04-16] MEDS ORDERED: ACETAMINOPHEN TAB 650MG DOSE (2X325MG) PO PRN (03:45)
[2019-04-16 04:00] VITALS: BP 105/52
[2019-04-16] MEDS: PIPERACILLIN/TAZOBACTAM SOD 3.375 GM in D5W MINI-BAG PLUS 50 ML IV SCH ×4 (04:21→22:02)
[2019-04-16] MEDS ORDERED: PIPERACILLIN/TAZOBACTAM SOD 3.375 GM in D5W MINI-BAG PLUS 50 ML IV SCH (05:00)
[2019-04-16 05:27] LABS: HEMATOCRIT 42.9 % (36.0-47.0); HEMOGLOBIN 13.4 g/dl (12.0-15.5); MEAN CORPUSCULAR HEMOGLOBIN 24.9 pg (27.0-33.0); MEAN CORPUSCULAR HGB CONC 31.2 g/dl (32.0-36.5); MEAN CORPUSCULAR VOLUME 79.7 fl (80.0-96.0); PLATELET COUNT, AUTOMATED 230 10^3/uL (150-450); RED BLOOD COUNT 5.38 10^6/uL (4.00-5.40); WHITE BLOOD COUNT 9.9 10^3/uL (4.0-10.0)
[2019-04-16] MEDS: VANCOMYCIN HCL 1,000 MG, VIAL MATE ADAPTER 1 EACH in D5W 250 ML IV SCH ×2 (05:46→18:47)
[2019-04-16] MEDS: LEVOTHYROXINE 137MCG TABLET (0.137MG) PO SCH (05:46)
[2019-04-16 05:47] LABS: CALCIUM LEVEL 9.1 MG/DL (8.5-10.1); CREATININE FOR GFR 1.03 MG/DL (0.55-1.30); POTASSIUM SERUM 3.2 MEQ/L (3.5-5.1)
[2019-04-16 05:58] LABS: PROTHROMBIN TIME 55.8 SECONDS (11.8-14.0)
--- NOTE | 2019-04-16 06:29 | PHACANCOPD ---
PHARMACY VANCOMYCIN DOSING Pt Demographics Demographics Patient Age:58 , Weight:88.000 , Gender: female Adjusted Body Weight Date: 04/16/19, Adjusted Body Weight: [76.8] Kg Vancomycin Vancomycin indication: CELLULITIS Vancomycin Target Ranges: 10-20 mcg/ml Vancomycin Load Y/N: No Load Dose Date Time Vancomycin Load Dose: Date: Time: Vancomycin Dose Date: 04/16/19. Current Vancomycin Dose: [1GM@23,THEN Q12@06] Intermittent Dosing?: No Labs Micro Microbiology 04/16/19 Gram Stain, Received Pending 04/16/19 Wound Culture, Received Pending 04/15/19 Blood Culture, Received Pending 04/15/19 Blood Culture, Received Pending Creatinine Clearance Date:04/16/19. Creatinine Clearance: [49.8]. Assessment and Plan Maintaining Current Dose?: Yes Reason for dose change: No Dose Change Pharmacist Note Pharmacist Note Date: 04/16/19. Pharmacist note:58 YOF Admitted w/cellulitis,eschar-looking wound on back.5'6",92.73 kg(ABW=76.8 kg)SCR=1.53,Calculated CRCL=49.8.TX with Pip/Tazo 3.375 [id number] and Pharmacy dosed Vancomycin.Vanco 1 gm administered in ED@ 2300 04/15. Will begin Vanco.1 gm IV Q12H@0600 04/16. First trough id due 04/17@0500-will continue to follow [facility] Apr 16, 2019 06:29
[2019-04-16 06:57] LABS: INR 6.24
[2019-04-16] MEDS ORDERED: HumaLOG INSULIN (NovoLOG) PER UNIT SC SCH (07:30)
--- NOTE | 2019-04-16 07:43 | HPE ---
DATE OF ADMISSION: 04/15/2019 PRIMARY CARE PHYSICIAN: Dr. Yvette Castillo CHIEF COMPLAINT: Back pain. HISTORY OF PRESENT ILLNESS 58-year-old female with nonhealing pressure ulcer in the midback with increasing and purulent drainage for the past few weeks. The patient has been bed bound due to severe pain for the past several weeks, laying on her side with her friend helping her with bandaging the area. According to the patient, her friend had noted increasing purulent drainage without fever or chills at home. She has been bed bound secondary to severe pain when she tries to get up and walk around. Described the pain as 10 out of 10 pain without any improvement with Tylenol at home. For the past 10 days she has been unable to see Dr. Rodriguez, she usually sees him once a week. She has run out of supplies and they have been using regular 4 x 4's at home. Today, she got out of bed and she felt very debilitated and weak, stumbling as she walked about 3 feet and fell on her face and hit the wall. Due to increasing back drainage as well as significant weakness causing a fall, the patient decided to come into the emergency room for further evaluation. She was found to be afebrile with purulent drainage and a 1 cm tract from an open abscess. Her white count was normal. She was found to have a glucose of 750 so the hospitalist was asked to admit. PAST MEDICAL HISTORY: Hypothyroidism. Coronary artery disease (CAD), follows with Dr. Carl. Myocardial infarction. Coronary artery bypass grafting (CABG) times two vessels. Chronic obstructive pulmonary disease (COPD). Mechanical heart valve. Diabetes type 2 with neuropathy. Rheumatic heart disease with mechanical mitral valve on chronic Coumadin. Hyperlipidemia. Peripheral vascular disease. Atrial fibrillation. Chronic systolic/diastolic heart failure status post automatic implantable cardioverter-defibrillator (AICD). Left ventricular ejection fraction (LVEF) 60%. 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 C. difficile August 2018. Anxiety/depression. Tobacco dependence. Insomnia. ALLERGIES: 1. CIPRO - causes diarrhea. 2. HEPARIN - causes heparin-induced thrombocytopenia (HIT). PAST SURGICAL HISTORY: Incision and drainage due to necrotizing fasciitis of the back. Total hysterectomy. CABG 2006. Stents 2015. Left foot toes were straightened. Tonsillectomy. Appendectomy. Pacer 2017. Surgical debridement of an infected fat necrosis. FAMILY HISTORY: Mother CAD, [place]. Mother diagnosed with diabetes. Siblings one sister and one daughter both healthy. SOCIAL HISTORY: Lives alone. Previously smoked from the age of 15 to the present, one pack a day to one and half packs a day, currently has four cigarettes. Has a friend and healthcare proxy Vanesa Booker, phone number [phone]. 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 Denies any recreational drug use. She is , currently disabled. The patient says she is DO NOT RESUSCITATE, DO NOT INTUBATE. REVIEW OF SYSTEMS: Per HPI, 12 point system otherwise negative. PHYSICAL EXAMINATION: Temperature 98.1, pulse 81, respiratory rate 20, blood pressure 120/78, 96% on room air. Generally, patient is awake, alert and oriented to person, place and time, answers questions appropriately. She is edentulous. No distress. No icterus or jaundice. No jugular venous distention (JVD), thyromegaly, or cervical lymphadenopathy. Moist mucous membranes. Lungs are clear to auscultation. No wheezing, rales or rhonchi. Heart S1, S2 sinus rhythm. AICD in place. Abdomen is obese, soft, nontender, nondistended. Positive bowel sounds. Back has purulent drainage with a 1 cm tract, 13 cm of erythema with 1/2 cm nonhealing ulcer in length and 1 cm in depth. She has a well healed 1 cm midback scar. LABORATORY DATA: White count 8.9, hemoglobin 14, hematocrit 45, platelet count 211. Sodium 125, potassium 4.4, chloride 89, bicarb 26, BUN 41, creatinine 1.53, glucose 752, calcium 9.1, total bilirubin 0.3, AST 10, ALT 19, alkaline phosphatase 270, CRP of 10.6, albumin 2.9. ASSESSMENT/PLAN: This is a 58-year-old female with a history of chronic left gluteal, right posterior neck wounds, midline back, type 2 diabetes, CAD, CABG, mechanical mitral valve, dyslipidemia, atrial fibrillation, COPD, EF of 60%, necrotizing infection, C. difficile, anxiety, depression, hypothyroidism, who presents with worsening pain and increasing drainage of the mid low back nonhealing ulcer, currently with abscess with open drainage. The patient will be admitted as an inpatient for two midnights with the following acute issues: 1. Right midline back abscess with chronic decubitus ulcer. The patient has been swabbed for wound culture sensitivities and gram stain, currently with broad spectrum antibiotics with vancomycin and intravenous Zosyn to be renally dosed by pharmacist. Await culture results and titrate accordingly. mortgage protection specialist in the morning with teleconferencing with Dr. Rodriguez, surgical consult for debridement. 2. Uncontrolled type 2 diabetes with a glucose of 752 and pseudohyponatremia with sodium of 125 and acute kidney injury. The patient is not in diabetic ketoacidosis (DKA). Continue with Levemir insulin and lispro insulin until glucose level is less than 200. Every 4 hour fingersticks and metabolic panel until well controlled. If not, the patient may need to be transferred to ICU with insulin drip. The patient is requesting a regular diet, but needs to be further controlled. She will remain with a consistent carbohydrate diet, insulin sliding scale. Continued on Levemir insulin and titrate accordingly. 3. History of CHF currently with acute abscess. We will hold the patient's Lasix for now and continue with 1 liter IV bolus.monitor for fluid overload, and respiratory status. 4. CAD, CABG. Continue aspirin, atorvastatin, Coreg. 5. Congestive heart failure (CHF). Strict intake and output and daily weights. May resume home dose of lisinopril. 6. Hypothyroidism. Continue on Synthroid. 7. Anxiety/depression. May resume fluoxetine. 8. Reflux. Continue on ranitidine. 9. Mechanical mitral valve. Continue on warfarin. Check INR daily. MTDD
[2019-04-16 08:00] VITALS: BP 93/54
[2019-04-16] MEDS ORDERED: LACTOBACILLUS ACIDOPHILUS CAP (BACID) PO SCH (08:00)
[2019-04-16 08:45] LABS: FREE THYROXINE INDEX 2.5 % (1.3-4.8); THYROID STIMULATING HORMONE 5.25 uIU/ML (0.358-3.740); THYROXINE (T4) 6.4 UG/DL (4.5-12.0); VANCOMYCIN LEVEL TROUGH 15.6 UG/ML (10.0-20.0)
[2019-04-16] MEDS: PARoxetine 10MG TABLET PO SCH (08:47)
[2019-04-16] MEDS: LACTOBACILLUS ACIDOPHILUS CAP (BACID) PO SCH ×2 (08:47→17:46)
[2019-04-16] MEDS: ASPIRIN 81 MG ENTERIC TAB PO SCH (08:47)
[2019-04-16] MEDS: POTASSIUM CHLORIDE 10 MEQ SR TABLET PO SCH (08:48)
[2019-04-16] MEDS: LEVEMIR (INSULIN DETEMIR) 1 UNITS/0.01ML SC SCH ×2 (08:50→20:44)
[2019-04-16] MEDS ORDERED: LISINOPRIL 5 MG TAB PO SCH (09:00)
[2019-04-16] MEDS: PERCOCET 5MG/325MG TAB PO PRN ×3 (10:53→22:04)
--- NOTE | 2019-04-16 11:11 | IPNPDOC ---
Subjective Date Seen The patient was seen on 04/16/19. Subjective Chief Complaint/HPI Patient complaining of pain in her back, not relieved with Tylenol General: Reports: Other Symptoms Constitutional: Denies: Chills, Fever, Malaise, Night Sweats, Weakness, Fatigue, Weight Loss, Lethargy, Other Eyes: Denies: Pain, Vision change, Conjunctivae inflammation, Eyelid inflammation, Redness, Other ENT: Denies: Head Aches, Ear Pain, Dysphagia, Sinus Congestion, Post Nasal Drip, Sore Throat, Epistaxis, Other Symptoms Skin: Reports: Other (, pain in the back with the abscesses) Pulmonary: Denies: Dyspnea, Cough, Pleuritic Chest Pain, Other Symptoms Cardiovascular: Denies: Chest Pain, Palpitations, Orthopnea, Paroxysmal Noc. Dyspnea, Edema, Lt Headedness, Other Symptoms Gastrointestinal: Denies: Nausea, Vomiting, Abdominal Pain, Diarrhea, Constipation, Melena, Hematochezia, Other Symptoms Endocrine: Denies: Polydipsia, Polyphagia, Polyuria, Heat Intolerance, Cold Intolerance, Other Endocrine Sx Musculoskeletal: Denies: Neck Pain, Back Pain, Shoulder Pain, Arm Pain, Hand Pain, Leg Pain, Foot Pain, Joint Pain, Muscle Pain, Spasms, Other Symptoms Neurological: Denies: Weakness, Numbness, Incoordination, Change in speech, Confusion, Seizures, Other Symptoms Objective Physical Examination General Exam: Positive: Alert, Cooperative Eye Exam: Positive: PERRLA, Conjunctiva & lids normal ENT Exam: Positive: Atraumatic Neck Exam: Positive: Supple Chest Exam: Positive: Clear to auscultation, Normal air movement Heart Exam: Positive: Rate Normal, Normal S1, Normal S2 Abdomen Exam: Positive: Normal bowel sounds, Soft, Tenderness Extremity Exam: Positive: Normal pulses Skin Exam: Positive: Other skin issue (. Dressings on the back) Neuro Exam: Positive: Sensation Intact Assessment /Plan Problems (1) Abscess of back Status: Acute Problem Text: This is 58 years old, obese, white female with primary history of chronic left gluteal, right posterior neck wounds midline back abscess type 2 diabetes mellitus, coronary artery disease, coronary artery bypass graft, mechanical mitral wall, dyslipidemia, atrial fibrillation, COPD, necrotizing infection, history of ejection fraction of 60%. 6. History of C. difficile, anxiety, depression, hypothyroidism, was admitted with increasing pain and drainage from the mid low back nonhealing ulcer. Patient follows up with Dr. Rodriguez and was sent from the wound clinic for further care. Currently, oswaldo ent says is an open drainage Wound cultures have been sent out and reports are pending Patient had been started on vancomycin and Zosyn and will continue the same Will change antibiotics according to wound culture reports Wound care consult with Dr. Rodriguez has been requested Surgical consult for debridement also was called by Dr. malik CBC, CMP in a.m. Continue current meds (2) Diabetes mellitus Status: Chronic Problem Text: Uncontrolled diabetes mellitus type 2 with presenting glucose of 752 pseudohyponatremia with sodium of 125 and a GI Patient's fingerstick is much better controlled now Hence, she has been started fingerstick every before meals and at bedtime with coverage Continue home medications , We'll closely follow patient's fingerstick blood sugar and treat accordingly. Most likely cause of her uncontrolled blood sugar is noncompliant with meds and diet Continue monitoring blood sugar closely (3) Supratherapeutic INR Status: Resolved Problem Text: Hold Coumadin INR in a.m. Try to keep Coumadin between 2.5-3.5 Plan/VTE VTE Prophylaxis Ordered?: Yes VS, I&O, 24H, Fishbone Vital Signs/I&O Vital Signs Date Time Temp Pulse Resp B/P (MAP) Pulse Ox O2 Delivery O2 Flow Rate FiO2 04/16/19 10:53 20 Room Air 04/16/19 08:50 65 105/52 04/16/19 08:00 95.7 98 I&O- Last 24 Hours up to 6 AM 04/16/19 06:00 Intake Total 1450 ml Balance 1450 ml Laboratory Data 24H LABS Laboratory Tests 2 04/15/19 19:37: Nucleated Red Blood Cells % (auto) 0.0, Anion Gap 10, Glomerular Filtration Rate 37.4L, Calcium Level 9.1, Total Bilirubin 0.3, Aspartate Amino Transf (AST/SGOT) 10, Alanine Aminotransferase (ALT/SGPT) 19, Alkaline Phosphatase 270H, C- Reactive Protein, Quantitative 10.60H, Total Protein 7.2, Albumin 2.9L, Albumin/Globulin Ratio 0.67L 04/15/19 21:40: Bedside Glucose (Misc Panel) > 600*H 04/15/19 23:07: Bedside Glucose (Misc Panel) 544*H 04/16/19 00:05: Bedside Glucose (Misc Panel) 501*H 04/16/19 01:08: Erythrocyte Sedimentation Rate 47H, Prothrombin Time 50.7H, Prothromb Time International Ratio 5.53*H, Anion Gap 9, Glomerular Filtration Rate 44.3L, Estimated Mean Plasma Glucose 369H, Hemoglobin A1c 14.5, Calcium Level 9.2, Thyroid Stimulating Hormone (TSH) 4.660H, B-Hydroxybutyrate 0.92 04/16/19 01:24: Bedside Glucose (Misc Panel) 353H 04/16/19 04:04: Bedside Glucose (Misc Panel) 161H 04/16/19 05:00: Prothrombin Time 55.8H, Prothromb Time International Ratio 6.24*H, Anion Gap 6L, Glomerular Filtration Rate 59.0, Calcium Level 9.1, Thyroid Stimulating Hormone (TSH) 5.250H, Nucleated Red Blood Cells % (auto) 0.0, Free Thyroxine Index 2.5, Thyroxine (T4) 6.4, Triiodothyronine (T3) Uptake 39, Vancomycin Level Trough 15.6 04/16/19 06:43: Bedside Glucose (Misc Panel) 118H CBC/BMP Laboratory Tests 04/15/19 19:37 04/16/19 01:08 04/16/19 05:00 Microbiology Microbiology 04/16/19 Gram Stain, Received Pending 04/16/19 Wound Culture, Received Pending 04/15/19 Blood Culture, Received Pending 04/15/19 Blood Culture, Received Pending NAVIN VILLEGAS MD Apr 16, 2019 11:11
[2019-04-16 12:00] VITALS: BP 110/70
[2019-04-16 16:00] VITALS: BP 105/68
--- NOTE | 2019-04-16 17:55 | CR ---
DATE OF TELEMEDICINE CONSULTATION: 04/16/2019 REASON FOR CONSULTATION: Regarding abscesses involving the mid-back, right lateral back and a resolving right posterior neck region. The patient is a noncompliant diabetic who was recently seen in our clinic for what appeared to be an infected sebaceous cyst involving the mid back just to the right of the midline. Under local anesthesia, a wide elliptical incision and drainage of the wound was performed. Purulent material was drained and the wound base was curetted removing any superficial necrotic tissue. Was wound was dressed with Drawtex and covered with a foam dressing. This procedure occurred on 04/08/2019. The patient was given dressing change instructions and was scheduled to be reevaluated in 1 week 04/15/2019. Unbeknownst to our clinic, the patient was admitted to [facility] yesterday 04/15/2019 with a blood sugar of 700, a hemoglobin A1c of 14.5 and worsening of her wound. The patient has a satellite area of black eschar in the central portion of her mid back. When seen today, the patient is on insulin and covered with a sliding scale. On physical examination the patient is sitting up in bed so that the wounds involving her back can be visualized. She does not appear to be in acute distress. Her vital signs are stable and she is afebrile. Her blood glucose has varied from 700-185.Her white count is 9.9 and a blood culture is pending. The primary wound involving the mid back just to the right of the midline measures 8.5 cm x 3.0 cm with a wound depth of 1.0 cm. The wound edges show full thickness, necrotic black tissue which will need to be surgically excised and the wound base shows necrotic tissue and fibrin slough. Wound drainage is moderate to heavy and it is seropurulent. There appears to be undermining from the 1:00 to the 5 o'clock position. The epithelial layer of her skin in this area shows early desquamation which is often a sign of underlying, deep tissue necrosis and represents spreading of the primary wound infection. Just to the midline of this wound, there is a small satellite wound with overlying black eschar which is nonfluctuant,demarcated and without erythema involving the periwound There may be communication with the primary wound although this is difficult to tell on telemedicine. This eschar should be debrided and removed. The right posterior neck wound, which appears to be improving should be reevaluated and debrided if indicated. The patient is on IV Zosyn. Wound care should include alginate, placed in the wound, and changed on a daily basis, with a covering foam dressing. 4x4s gauze dressings should not be used. Periwound should be protected with a small rim of Desitin or a zinc oxide cream. To the right lateral aspect of the wound at the 3 o'clock position, there appears to be erythema with early desquamation of the epithelial layer and may indicate extension of the original primary abscess. This area should be considered for extended debridement. It should also be noted that the patient has atypical skin lesions involving the alina of the patient's right and left ears. She was referred to plastic surgery for possible further excision and no showed x3 to this office. Compliance is a major problem and diabetic education with reinforcement is strongly indicated. The patient has a significant history of multiple skin infections carbuncles and pustules which are related to poor diabetic control in high blood glucose levels. This has been addressed several times to the patient who clearly is not interested in changing her lifestyle or controlling her diabetes Re-evaluation via telemedicine can be requested in 1 week if needed and when the patient is stabilized and eventually discharged she can follow up up at our wound clinic. Please allow plenty of time for appointment scheduling. JAD
[2019-04-16] MEDS: DIAPER RELIEF PASTE (DESITIN) 60GM TOP SCH (18:48)
[2019-04-16 20:00] VITALS: BP 100/47
--- NOTE | 2019-04-16 22:32 | IPNPDOC ---
Text Note Date of Service The patient was seen on 04/16/19. NOTE Was paged about patient being positive for Streptococcus species on blood culture. Patient is currently on vancomycin and Zosyn for nonhealing back ulcer. I repeated blood cultures and ordered a TTE. Patient will require infectious disease consult on morning. INNA DIAZ DO Apr 16, 2019 22:32 DHEERAJ JACKSON MD Apr 17, 2019 02:02
[2019-04-16] MEDS ORDERED: NS 500 ML IV ONE (23:30)
[2019-04-17] VITALS: BP 86/44
[2019-04-17] MEDS: PERCOCET 5MG/325MG TAB PO PRN ×5 (01:50→22:13)
[2019-04-17 02:00] VITALS: BP 108/62
[2019-04-17] MEDS: PIPERACILLIN/TAZOBACTAM SOD 3.375 GM in D5W MINI-BAG PLUS 50 ML IV SCH ×2 (03:54→10:55)
[2019-04-17 04:00] VITALS: BP 98/62
[2019-04-17 05:33] LABS: BASO # 0.1 10^3/uL (0.0-0.2); BASO % 0.7 % (0.0-1.0); EOS # 0.2 10^3/uL (0.0-0.5); HEMATOCRIT 41.4 % (36.0-47.0); HEMOGLOBIN 12.6 g/dl (12.0-15.5); LYMPH # 0.9 10^3/uL (1.5-5.0); LYMPH % 11.9 % (24.0-44.0); MEAN CORPUSCULAR HEMOGLOBIN 24.9 pg (27.0-33.0); MEAN CORPUSCULAR HGB CONC 30.4 g/dl (32.0-36.5); MEAN CORPUSCULAR VOLUME 81.7 fl (80.0-96.0); MONO # 0.7 10^3/uL (0.0-0.8); MONO % 8.7 % (0.0-5.0); NEUTROPHILS # 5.5 10^3/uL (1.5-8.5); NEUTROPHILS % 74.1 % (36.0-66.0); PLATELET COUNT, AUTOMATED 213 10^3/uL (150-450); RED BLOOD COUNT 5.07 10^6/uL (4.00-5.40); WHITE BLOOD COUNT 7.5 10^3/uL (4.0-10.0)
[2019-04-17 05:41] LABS: INR 4.92; PROTHROMBIN TIME 46.2 SECONDS (11.8-14.0)
[2019-04-17 05:59] LABS: BILIRUBIN,TOTAL 0.4 MG/DL (0.2-1.0); CALCIUM LEVEL 8.6 MG/DL (8.5-10.1); CREATININE FOR GFR 1.14 MG/DL (0.55-1.30); GLOMERULAR FILTRATION RATE 52.5 (>51); POTASSIUM SERUM 3.5 MEQ/L (3.5-5.1); TOTAL PROTEIN 6.5 GM/DL (6.4-8.2); VANCOMYCIN LEVEL TROUGH 23.6 UG/ML (10.0-20.0)
[2019-04-17] MEDS: LEVOTHYROXINE 137MCG TABLET (0.137MG) PO SCH (06:10)
[2019-04-17] MEDS: VANCOMYCIN HCL 1,000 MG, VIAL MATE ADAPTER 1 EACH in D5W 250 ML IV SCH (06:11)
--- NOTE | 2019-04-17 06:33 | PHACANCOPD ---
PHARMACY VANCOMYCIN DOSING Pt Demographics Demographics Patient Age:58 , Weight:91.500 , Gender: female Adjusted Body Weight Date: 04/16/19, Adjusted Body Weight: [76.8] Kg Vancomycin Vancomycin indication: CELLULITIS Vancomycin Target Ranges: 10-20 mcg/ml Vancomycin Load Y/N: No Load Dose Date Time Vancomycin Load Dose: Date: Time: Vancomycin Dose Date: 04/16/19. Current Vancomycin Dose: [1GM@23,THEN Q12@06] Intermittent Dosing?: No Labs Micro Microbiology 04/17/19 Blood Culture, Received Pending 04/16/19 Blood Culture, Received Pending 04/16/19 Gram Stain - Final, Resulted 04/16/19 Wound Culture, Resulted Pending 04/15/19 Blood Culture - Preliminary, Resulted No growth after 24 hours . All specim... 04/15/19 Blood Culture - Preliminary, Resulted Creatinine Clearance Date:04/16/19. Creatinine Clearance: [49.8]. Assessment and Plan Maintaining Current Dose?: No Reason for dose change: Trough too high Pharmacist Note Pharmacist Note Date: 04/17/19. Pharmacist note: Vancomycin trough drawn this morning@5:14 reported as 23.6-Will change regimen to 1 gram IV Q24h to begin @ 1800 today.Trough is scheduled for 1700 today-Will continue to follow Date: 04/16/19. Pharmacist note:58 YOF Admitted w/cellulitis,eschar-looking wound on back.5'6",92.73 kg(ABW=76.8 kg)SCR=1.53,Calculated CRCL=49.8.TX with Pip/Tazo 3.375 [id number] and Pharmacy dosed Vancomycin.Vanco 1 gm administered in ED@ 2300 04/15. Will begin Vanco.1 gm IV Q12H@0600 04/16. First trough id due 04/17@0500-will continue to follow [facility] Apr 17, 2019 06:33
[2019-04-17] MEDS: HumaLOG INSULIN (NovoLOG) PER UNIT SC SCH ×4 (07:20→20:18)
[2019-04-17] MEDS: GLUCOSE 4 GM CHEW TABLET PO PRN (07:30)
[2019-04-17 07:54] VITALS: BP 124/68
[2019-04-17] MEDS: ASPIRIN 81 MG ENTERIC TAB PO SCH (08:54)
[2019-04-17] MEDS: LACTOBACILLUS ACIDOPHILUS CAP (BACID) PO SCH ×2 (08:54→17:17)
[2019-04-17] MEDS: PARoxetine 10MG TABLET PO SCH (08:54)
[2019-04-17] MEDS: LEVEMIR (INSULIN DETEMIR) 1 UNITS/0.01ML SC SCH ×2 (08:54→20:37)
[2019-04-17] MEDS: POTASSIUM CHLORIDE 10 MEQ SR TABLET PO SCH (08:54)
[2019-04-17] MEDS: FAMOTIDINE 20 MG TAB PO SCH ×2 (08:55→20:37)
[2019-04-17] MEDS: CARVedilol 6.25 MG TAB PO SCH ×2 (08:55→20:36)
--- NOTE | 2019-04-17 10:23 | IPNPDOC ---
Subjective Date Seen The patient was seen on 04/17/19. Subjective Chief Complaint/HPI Patient lying on his stomach was seen by surgery this morning, scheduled for debridement this afternoon General: Denies: ROS Unobtainable, Chills, Night Sweats, Fatigue, Malaise, Normal Appetite, Other Symptoms Constitutional: Denies: Chills, Fever, Malaise, Night Sweats, Weakness, Fatigue, Weight Loss, Lethargy, Other Skin: Reports: Other (, nonhealing wound at the back) Pulmonary: Denies: Dyspnea, Cough, Pleuritic Chest Pain, Other Symptoms Cardiovascular: Denies: Chest Pain, Palpitations, Orthopnea, Paroxysmal Noc. Dyspnea, Edema, Lt Headedness, Other Symptoms Gastrointestinal: Denies: Nausea, Vomiting, Abdominal Pain, Diarrhea, Constipation, Melena, Hematochezia, Other Symptoms Musculoskeletal: Denies: Neck Pain, Back Pain, Shoulder Pain, Arm Pain, Hand Pain, Leg Pain, Foot Pain, Joint Pain, Muscle Pain, Spasms, Other Symptoms Neurological: Denies: Weakness, Numbness, Incoordination, Change in speech, Confusion, Seizures, Other Symptoms Objective Physical Examination General Exam: Positive: Alert, Cooperative Eye Exam: Positive: PERRLA, Conjunctiva & lids normal ENT Exam: Positive: Atraumatic Neck Exam: Positive: Supple Chest Exam: Positive: Clear to auscultation, Normal air movement Heart Exam: Positive: Rate Normal, Normal S1, Normal S2 Abdomen Exam: Positive: Normal bowel sounds, Soft, Tenderness Extremity Exam: Positive: Normal pulses Skin Exam: Positive: Other skin issue (. Dressings on the back) Neuro Exam: Positive: Sensation Intact Assessment /Plan Problems (1) Abscess of back Status: Acute Problem Text: This is 58 years old, obese, white female with primary history of chronic left gluteal, right posterior neck wounds midline back abscess type 2 diabetes mellitus, coronary artery disease, coronary artery bypass graft, mechanical mitral wall, dyslipidemia, atrial fibrillation, COPD, necrotizing infection, history of ejection fraction of 60%. 6. History of C. difficile, anxiety, depression, hypothyroidism, was admitted with increasing pain and drainage from the mid low back nonhealing ulcer. Patient follows up with Dr. Rodriguez and was sent from the wound clinic for further care. Currently, patient says is an open drainage Wound cultures have been sent out and reports are pending Patient had been started on vancomycin and Zosyn and will continue the same Will change antibiotics according to wound culture reports Wound care consult by telemedicine appreciated and orders have been noted Patient was seen Dr. Ferrell this morning and is scheduled for debridement this afternoon Wound culture is pending Continue present care (2) Diabetes mellitus Status: Chronic Problem Text: Uncontrolled diabetes mellitus type 2 with presenting glucose of 752 pseudohyponatremia with sodium of 125 and a GI Patient's fingerstick is much better controlled now Hence, she has been started fingerstick every before meals and at bedtime with coverage Continue home medications , We'll closely follow patient's fingerstick blood sugar and treat accordingly. Most likely cause of her uncontrolled blood sugar is noncompliant with meds and diet Continue monitoring blood sugar closely (3) Supratherapeutic INR Status: Resolved Problem Text: Hold Coumadin INR in a.m. Try to keep Coumadin between 2.5-3.5 Plan/VTE VTE Prophylaxis Ordered?: Yes VS, I&O, 24H, Fishbone Vital Signs/I&O Vital Signs Date Time Temp Pulse Resp B/P (MAP) Pulse Ox O2 Delivery O2 Flow Rate FiO2 04/17/19 08:55 76 124/68 04/17/19 07:54 98.6 18 93 Room Air I&O- Last 24 Hours up to 6 AM 04/17/19 06:00 Intake Total 1600 ml Output Total 1200 ml Balance 400 ml Laboratory Data 24H LABS Laboratory Tests 2 04/16/19 11:44: Bedside Glucose (Misc Panel) 189H 04/16/19 17:22: Bedside Glucose (Misc Panel) 180H 04/16/19 19:42: Bedside Glucose (Misc Panel) 219H 04/17/19 05:14: Immature Granulocyte % (Auto) 2.6, Neutrophils (%) (Auto) 74.1H, Lymphocytes (%) (Auto) 11.9L, Monocytes (%) (Auto) 8.7H, Eosinophils (%) (Auto) 2.0, Basophils (%) (Auto) 0.7, Neutrophils # (Auto) 5.5, Lymphocytes # (Auto) 0.9L, Monocytes # (Auto) 0.7, Eosinophils # (Auto) 0.2, Basophils # (Auto) 0.1, Nucleated Red Blood Cells % (auto) 0.0, Erythrocyte Sedimentation Rate 63H, Prothrombin Time 46.2H, Prothromb Time International Ratio 4.92, Anion Gap 4L, Glomerular Filtration Rate 52.5, Calcium Level 8.6, Total Bilirubin 0.4, Aspartate Amino Transf (AST/SGOT) 83H, Alanine Aminotransferase (ALT/SGPT) 38, Alkaline Phosp hatase 192H, C-Reactive Protein, Quantitative 12.00H, Total Protein 6.5, Albumin 2.0#L, Albumin/Globulin Ratio 0.44L, Vancomycin Level Trough 23.6H 04/17/19 07:11: Bedside Glucose (Misc Panel) 34*L 04/17/19 07:27: Bedside Glucose (Misc Panel) 51L 04/17/19 07:50: Bedside Glucose (Misc Panel) 72 04/17/19 08:51: Bedside Glucose (Misc Panel) 136H CBC/BMP Laboratory Tests 04/17/19 05:14 Microbiology Microbiology 04/17/19 Blood Culture, Received Pending 04/17/19 Blood Culture, Received Pending 04/16/19 Blood Culture, Received Pending 04/16/19 Gram Stain - Final, Resulted 04/16/19 Wound Culture - Preliminary, Resulted Staphylococcus Aureus 04/15/19 Blood Culture - Preliminary, Resulted No growth after 24 hours . All specim... 04/15/19 Blood Culture - Preliminary, Resulted NAVIN VILLEGAS MD Apr 17, 2019 10:23
[2019-04-17] MEDS: DIAPER RELIEF PASTE (DESITIN) 60GM TOP SCH (10:56)
[2019-04-17 11:44] VITALS: BP 132/76
[2019-04-17] MEDS ORDERED: LIDOCAINE 1% MDV 20ML VIAL SC ONE (12:00)
[2019-04-17 12:20] LABS: INR 4.09; PROTHROMBIN TIME 39.8 SECONDS (11.8-14.0)
--- NOTE | 2019-04-17 14:45 | CR ---
DATE OF CONSULTATION: 04/17/2019 REASON FOR CONSULTATION: Back ulcer. HISTORY OF PRESENT ILLNESS: The patient is a 58-year-old female, uncontrolled diabetic who has had a pressure ulcer on her right side of her mid-back for awhile. She has a history of multiple back abscesses and boils in the past. All have been uncontrolled and required irrigation and debridement (I and D). She follows up with Dr. Rodriguez regularly. However, she has failed to follow up in her last few appointments and therefore this wound has gotten out of control. She presented to the emergency room (ER) with 10/10 pain. She also ran out of supplies to take care of this wound on her own. She has been feeling weak and not moving out of bed for awhile now. When she came into the ER, her glucose was 750, so she was admitted to the hospitalist service. Dr. Rodriguez was consulted to telemedicine. He evaluated all of her wounds and recommended surgical debridement due to the eschars on her back and that is why I was consulted. Currently, she says her pain is well-controlled. She denies any nausea or vomiting. No fevers. She claims that she can get up and walk back and forth to the bathroom; however, all she does is lay in bed and does not move very much. The wound on her back has been there as long as she can remember and there is only pain when it is being touched. PAST MEDICAL HISTORY: Hypothyroidism, coronary artery disease, myocardial infarction (CA), chronic obstructive pulmonary disease (COPD), diabetes, rheumatic heart disease, hyperlipidemia, peripheral vascular disease, valvular heart disease, atrial fibrillation, systolic and diastolic heart failure, history of methicillin-resistant Staphylococcus aureus (MRSA) infection, Clostridium difficile, anxiety, depression, insomnia, tobacco abuse. PAST SURGICAL HISTORY: Multiple I and Ds of back abscesses, hysterectomy, coronary artery bypass graft (CABG), multiple stents, foot surgery, tonsillectomy, appendectomy, pacemaker placement. ALLERGIES: - CIPRO - HEPARIN MEDICATIONS: Please see med rec, including Coumadin. FAMILY HISTORY: Noncontributory. SOCIAL HISTORY: Lives alone. Does smoke daily. No alcohol abuse. REVIEW OF SYSTEMS: Pertinent positive and negatives as stated in the history of present illness (HPI). PHYSICAL EXAMINATION: General: Alert and oriented times three, in no acute distress. Vitals: Temperature 98.6, pulse 80, respirations 18, blood pressure 130/76, pulse ox 100% on room air. HEENT: Pupils equally round. React to light and accommodation. Heart: S1-S2, regular rate and rhythm. Lungs: Clear to auscultation bilaterally. Abdomen: Soft. Tender to palpation diffusely. Back: Large wound in the mid right back with eschar overlying it and purulent fluid draining from the center to the left side. About 5 cm away is another small eschar about 1.5 cm in diameter. No signs of any inflammation or drainage from that spot. On the back of the right neck, there is another recent wound that is dry. No signs of any blanching, erythema or infection in that area. Extremities: Bilateral lower extremity pitting edema. LABORATORY DATA: White count 7.5, hemoglobin 12.6, platelets 213. INR is 4. ASSESSMENT/PLAN: The patient is a 58-year-old female, uncontrolled diabetic, noncompliant patient who presents with a large back ulcer that is unstageable due to overlying eschar and necrotic slough tissue. Recommendation is to proceed with bedside debridement at this time, open it up as much as possible, debride as much of the eschar as I can, and get as much of the slough tissue out to allow the infection to heal. Once that is completed, will give it a few days and reevaluate and possibly take her for more sharp debridement if needed. PROCEDURE: At the bedside, consent was obtained for bedside sharp excisional debridement of this back ulcer. Consent was obtained by the patient. The nurse was available at the bedside for a bedside time out. Once that was completed, the back was prepped and draped with Betadine. Next, 20 mL of 1% lidocaine was injected in the skin and subcutaneous tissue surrounding both of the wounds. Next, using a 15 blade scalpel, the eschars were sharply excised from the large wound on the right side of the mid-back as well as the small one on the left. Once both of those were removed, as much of the slough tissue that I could remove as possible with the scalpel was completed. Once that was done, the area was scrubbed again with some Betadine. The curette was then used to curette both wound edges and the base of the wounds, trying to free up some more of that slough tissue. Once that was completed, the wound was packed with alginate and a foam dressing. The patient tolerated the procedure well. They will continue with dressing changes daily and I will reevaluate at the end of the weekend and see if any further debridement needs to be done prior to her discharge.
[2019-04-17] MEDS ORDERED: VANCOMYCIN HCL 1,000 MG, VIAL MATE ADAPTER 1 EACH in D5W 250 ML IV SCH (18:00)
[2019-04-17 20:00] VITALS: BP 102/52
[2019-04-17] MEDS: ATORVASTATIN 20 MG TAB PO SCH (20:37)
[2019-04-17 23:15] LABS: HEMATOCRIT 41.6 % (36.0-47.0); HEMOGLOBIN 12.5 g/dl (12.0-15.5)
[2019-04-17 23:32] LABS: INR 3.24
[2019-04-18] VITALS: BP 100/51
[2019-04-18 04:00] VITALS: BP 94/53
[2019-04-18] MEDS: PERCOCET 5MG/325MG TAB PO PRN ×4 (04:30→20:43)
[2019-04-18 05:04] LABS: BASO # 0.1 10^3/uL (0.0-0.2); BASO % 0.8 % (0.0-1.0); EOS # 0.1 10^3/uL (0.0-0.5); EOS % 1.8 % (0.0-3.0); HEMATOCRIT 38.4 % (36.0-47.0); HEMOGLOBIN 11.6 g/dl (12.0-15.5); LYMPH # 0.9 10^3/uL (1.5-5.0); LYMPH % 11.5 % (24.0-44.0); MEAN CORPUSCULAR HEMOGLOBIN 24.9 pg (27.0-33.0); MEAN CORPUSCULAR HGB CONC 30.2 g/dl (32.0-36.5); MEAN CORPUSCULAR VOLUME 82.4 fl (80.0-96.0); MONO # 0.6 10^3/uL (0.0-0.8); MONO % 7.8 % (0.0-5.0); NEUTROPHILS # 5.7 10^3/uL (1.5-8.5); NEUTROPHILS % 75.1 % (36.0-66.0); PLATELET COUNT, AUTOMATED 238 10^3/uL (150-450); RED BLOOD COUNT 4.66 10^6/uL (4.00-5.40); WHITE BLOOD COUNT 7.7 10^3/uL (4.0-10.0)
[2019-04-18 05:14] LABS: INR 2.73; PROTHROMBIN TIME 28.8 SECONDS (11.8-14.0)
[2019-04-18] MEDS: LEVOTHYROXINE 137MCG TABLET (0.137MG) PO SCH (05:44)
[2019-04-18 05:52] LABS: ALBUMIN 2.1 GM/DL (3.2-5.2); BILIRUBIN,TOTAL 0.3 MG/DL (0.2-1.0); CALCIUM LEVEL 8.5 MG/DL (8.5-10.1); CREATININE FOR GFR 1.07 MG/DL (0.55-1.30); GLOMERULAR FILTRATION RATE 56.5 (>51); POTASSIUM SERUM 4.8 MEQ/L (3.5-5.1); TOTAL PROTEIN 6.5 GM/DL (6.4-8.2)
[2019-04-18 08:00] VITALS: BP 151/68
[2019-04-18] MEDS: LACTOBACILLUS ACIDOPHILUS CAP (BACID) PO SCH ×2 (09:06→17:49)
[2019-04-18] MEDS: ASPIRIN 81 MG ENTERIC TAB PO SCH (09:06)
[2019-04-18] MEDS: FAMOTIDINE 20 MG TAB PO SCH ×2 (09:07→20:37)
[2019-04-18] MEDS: CARVedilol 6.25 MG TAB PO SCH ×2 (09:08→20:37)
[2019-04-18] MEDS: PARoxetine 10MG TABLET PO SCH (09:08)
[2019-04-18] MEDS: POTASSIUM CHLORIDE 10 MEQ SR TABLET PO SCH (09:08)
[2019-04-18] MEDS: LEVEMIR (INSULIN DETEMIR) 1 UNITS/0.01ML SC SCH ×2 (09:09→20:31)
[2019-04-18] MEDS: HumaLOG INSULIN (NovoLOG) PER UNIT SC SCH ×4 (09:09→20:30)
[2019-04-18] MEDS: DIAPER RELIEF PASTE (DESITIN) 60GM TOP SCH (09:19)
--- NOTE | 2019-04-18 09:36 | CR ---
DATE OF CONSULTATION: 04/17/2019 I was asked to consult by the hospitalist for evaluation of a large necrotizing back abscess with Staphylococcus aureus. HISTORY OF PRESENT ILLNESS: Jenny is a 58-year-old female with a history of recurrent Staph aureus abscesses for the past couple of years. I had seen her in February 2018 and had done an extensive workup regarding recurrent abscesses including HIV that was negative, hepatitis C negative, immunoglobulin G in IgG subclasses negative, IgA and IgE were normal. The patient's total complement levels and leukocyte adhesion deficiency was done which was also normal. She was followed up by Dr. Rodriguez and had multiple irrigation and debridements done, most recently with this back abscess which has progressively gotten worse. The pain had gotten so severe that she could not get out of bed for the past 10 days. She ran out of her supplies and could not do her packing which was done with the help of her friend. The patient denied having any fever or chills, but had increasing back drainage. She was weak and stumbling and ended up falling on her face and hitting the wall. In the emergency room (ER), she was noted to have a sugar of 750 and therefore was admitted. She had no fever or chills. No nausea, vomiting or diarrhea. PAST MEDICAL HISTORY: Includes hypothyroidism, coronary artery disease followed by Dr. 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 difficile colitis. ALLERGIES: - CIPRO causes diarrhea - HEPARIN causes heparin-induced thrombocytopenia MEDICATIONS: Vancomycin 1 gram IV every 24 hours, Percocet 1 tablet by mouth every 4 hours, aspirin 81 mg by mouth daily, Paxil 10 mg by mouth daily, potassium chloride 20 mEq by mouth daily, probiotics 1 tablet by mouth twice a day, levothyroxine 137 mcg by mouth daily, Zosyn 3.375 grams IV every 6 hours, albuterol/Atrovent nebs, zolpidem, Lipitor 80 mg by mouth at bedtime, Coreg 6.25 mg by mouth twice a day, famotidine 20 mg by mouth twice a day. PAST SURGICAL HISTORY: Irrigation and debridement of multiple abscesses. Hysterectomy, CABG in 2007, stents in 2016, pacemaker in 2017, mechanical aortic valve replacement. FAMILY HISTORY: Mother of coronary artery disease, myocardial infarction ([place]) and diabetes. SOCIAL HISTORY: She lives alone. She smoked a pack and a half of cigarettes a day, down to four cigarettes. Her healthcare proxy is still Abigail Booker, phone number . REVIEW OF SYSTEMS She denies any nausea, vomiting or diarrhea. No cough or shortness of breath. She complains of severe back pain at the abscess site and lays on her belly. PHYSICAL EXAMINATION: Pleasant female in no acute distress. Vital Signs: Temperature 96.2, pulse 78, respirations 18, blood pressure 102/52, O2 sat 100% on room air. Heart: Normal S1-S2. No murmurs, rubs or gallops. Lungs are clear. No wheezes or rhonchi. Abdomen: Soft, obese, nontender. No visceromegaly. Back: With a very large abscess that has been irrigated and debrided at the bedside, measuring at least 20 x 15 cm erythematous border, purplish discoloration. There is still an area on the left side of the abscess that is tunneling down with multiple pustules coming to a head. LABORATORY DATA: White count 7.5, hemoglobin 12.6, hematocrit 42.4, platelets to 213, 74% neutrophils, 12% monocytes, 8% eosinophils. Sodium 134, potassium 3.5, chloride 99, bicarb 31, BUN 34, creatinine 1.14, glucose 57, calcium 8.6, bilirubin 0.4, AST 83, ALT 38, alkaline phosphatase 192, CRP 12. Blood cultures one out of two positive for gram positive cocci in clusters. Whether it is going to be Staph aureus or just a contaminant, the results will be available tomorrow. Repeat blood cultures on 04/16 and 04/17 are pending. Wound culture from the I/D site on 04/16 is positive for Staph aureus, susceptibilities are pending, but I suspect it will be MSSA just like all previous cultures. IMPRESSION: This is a 58-year-old female with poorly controlled diabetes with an A1c of 14.5 who presents with another necrotizing infection with Staph aureus of her mid back. Her immunodeficiency workup had been done last year and was all negative. Her risk factors of necrotizing infection is poorly controlled diabetes. Her HbA1c is 10.5 in the past year and a half with an average of 12-14. She is chronically colonized with Staph aureus and I would recommend that she remain on by mouth doxycycline long-term once the patient's abscess is treated with IV antibiotics. PLAN: Discontinue IV Zosyn and continue vancomycin until results of blood cultures and wound cultures are available. I suspect the blood cultures will be a contaminant and wound culture will be MSSA and if that is the case she could be switched to nafcillin or cefazolin. She may need further debridement, especially on the left side where there is tunneling. She would definitely also benefit from a wound Vac. I will research the benefit of possibly adding rifampin to decrease her colonization and biofilm. Definitely, I would like to see her as an outpatient. The patient needs to remain on chronic suppressive therapy with Bactrim or doxycycline long-term.
[2019-04-18] MEDS ORDERED: SLF 3 ML SYR IV PRN (10:30)
--- NOTE | 2019-04-18 10:31 | IPNPDOC ---
Subjective Date Seen The patient was seen on 04/18/19. Subjective Chief Complaint/HPI Complaining of pain in the back at the surgical site General: Denies: ROS Unobtainable, Chills, Night Sweats, Fatigue, Malaise, Normal Appetite, Other Symptoms Constitutional: Denies: Chills, Fever, Malaise, Night Sweats, Weakness, Fatigue, Weight Loss, Lethargy, Other Eyes: Denies: Pain, Vision change, Conjunctivae inflammation, Eyelid inflammation, Redness, Other ENT: Denies: Head Aches, Ear Pain, Dysphagia, Sinus Congestion, Post Nasal Drip, Sore Throat, Epistaxis, Other Symptoms Skin: Denies: Rash, Lesions, Jaundice, Bruising, Itching, Dry, Breakdown, Nail Changes, Other Pulmonary: Denies: Dyspnea, Cough, Pleuritic Chest Pain, Other Symptoms Cardiovascular: Denies: Chest Pain, Palpitations, Orthopnea, Paroxysmal Noc. Dyspnea, Edema, Lt Headedness, Other Symptoms Gastrointestinal: Denies: Nausea, Vomiting, Abdominal Pain, Diarrhea, Constipation, Melena, Hematochezia, Other Symptoms Musculoskeletal: Reports: Back Pain Neurological: Denies: Weakness, Numbness, Incoordination, Change in speech, Confusion, Seizures, Other Symptoms Objective Physical Examination General Exam: Positive: Alert, Cooperative Eye Exam: Positive: PERRLA, Conjunctiva & lids normal ENT Exam: Positive: Atraumatic Neck Exam: Positive: Supple Chest Exam: Positive: Clear to auscultation, Normal air movement Heart Exam: Positive: Rate Normal, Normal S1, Normal S2 Abdomen Exam: Positive: Normal bowel sounds, Soft, Tenderness Extremity Exam: Positive: Normal pulses Skin Exam: Positive: Other skin issue (dressing and a large wound in the back) Neuro Exam: Positive: Sensation Intact Assessment /Plan Problems (1) Necrotizing cellulitis Status: Acute Problem Text: Status post debridement by Dr. Ferrell Discussed with Dr. Graham regarding infectious disease intervention Walter has been DC'd. Patient has been started on cefazolin's by ID Wound cultures and blood cultures are still pending Possible chronic suppression with Bactrim on rifampin as per ID Pain management Continue present care (2) Diabetes mellitus Status: Chronic Problem Text: Uncontrolled diabetes mellitus type 2 with presenting glucose of 752 pseudohyponatremia with sodium of 125 and a GI Patient's fingerstick is much better controlled now Hence, she has been started fingerstick every before meals and at bedtime with coverage Continue home medications Continue detemir 60 units subcutaneous every 12 hours Continue monitoring fingerstick blood sugar with coverage Continue all home meds (3) Supratherapeutic INR Status: Resolved Problem Text: INR is 2.73. Today Restart by mouth Coumadin To keep INR between 2.5-3.5 (4) Hypothyroid Status: Chronic Problem Text: Continue home meds Plan/VTE VTE Prophylaxis Ordered?: Yes VS, I&O, 24H, Fishbone Vital Signs/I&O Vital Signs Date Time Temp Pulse Resp B/P (MAP) Pulse Ox O2 Delivery O2 Flow Rate FiO2 04/18/19 09:08 78 151/68 04/18/19 09:07 18 04/18/19 08:00 97.2 95 Room Air I&O- Last 24 Hours up to 6 AM 04/18/19 06:00 Intake Total 2440 ml Output Total 250 ml Balance 2190 ml Laboratory Data 24H LABS Laboratory Tests 2 04/17/19 11:39: Prothrombin Time 39.8H, Prothromb Time International Ratio 4.09 04/17/19 13:33: Bedside Glucose (Misc Panel) 152H 04/17/19 16:57: Vancomycin Level Trough 16.8 04/17/19 17:04: Bedside Glucose (Misc Panel) 120H 04/17/19 20:13: Bedside Glucose (Misc Panel) 240H 04/17/19 23:05: Prothrombin Time 33.0H, Prothromb Time International Ratio 3.24 04/18/19 04:39: Prothrombin Time 28.8H, Prothromb Time International Ratio 2.73, Immature Granulocyte % (Auto) 3.0, Neutrophils (%) (Auto) 75.1H, Lymphocytes (%) (Auto) 11.5L, Monocytes (%) (Auto) 7.8H, Eosinophils (%) (Auto) 1.8, Basophils (%) (Auto) 0.8, Neutrophils # (Auto) 5.7, Lymphocytes # (Auto) 0.9L, Monocytes # (Auto) 0.6, Eosinophils # (Auto) 0.1, Basophils # (Auto) 0.1, Nucleated Red Blood Cells % (auto) 0.0, Anion Gap 6L, Glomerular Filtration Rate 56.5, Calcium Level 8.5, Total Bilirubin 0.3, Aspartate Amino Transf (AST/SGOT) 53H, Alanine Aminotransferase (ALT/SGPT) 58, Alkaline Phosphatase 245H, Total Protein 6.5, Albumin 2.1L, Albumin/Globulin Ratio 0.48L 04/18/19 08:23: Bedside Glucose (Misc Panel) 175H CBC/BMP Laboratory Tests 04/17/19 23:05 04/18/19 04:39 Microbiology Microbiology 04/17/19 Blood Culture - Preliminary, Resulted No growth after 24 hours . All specim... 04/17/19 Blood Culture - Preliminary, Resulted No growth after 24 hours . All specim... 04/16/19 Blood Culture - Preliminary, Resulted No growth after 24 hours . All specim... 04/16/19 Gram Stain - Final, Complete 04/16/19 Wound Culture - Final, Complete Staphylococcus Aureus 04/15/19 Blood Culture - Preliminary, Resulted No Growth after 48 hours. All Specime... 04/15/19 Blood Culture - Preliminary, Resulted NAVIN VILLEGAS MD Apr 18, 2019 10:31
--- NOTE | 2019-04-18 10:40 | IPNPDOC ---
Text Note Date of Service The patient was seen on 04/18/19. NOTE No acute events overnight. She had some bleeding and a little pain from her back overnight, but it is controlled. VSSAF NAD skin - I removed the dressing, the wound is not bleeding currently, I placed a tight dry dressing on top for now labs - below A) 58y/o female with large back ulcer s/p debridement P) reg diet PO and IV pain control ambulate monitor labs OOB to chair I will talk to Dr. Rodriguez about possible wound vac and further debridement on Sunday once the infection clears and the wound edges demarcate themselves more Angelo Ferrell DO VS,Figueroa, I+O VS, Figueroa, I+O Laboratory Tests 04/17/19 23:05 04/18/19 04:39 Vital Signs Date Time Temp Pulse Resp B/P (MAP) Pulse Ox O2 Delivery O2 Flow Rate FiO2 04/18/19 09:08 78 151/68 04/18/19 09:07 18 04/18/19 08:00 97.2 95 Room Air I&O- Last 24 Hours up to 6 AM 04/18/19 06:00 Intake Total 2440 ml Output Total 250 ml Balance 2190 ml SHILPA FERRELL DO Apr 18, 2019 10:40
[2019-04-18 12:00] VITALS: BP 124/65
[2019-04-18] MEDS: ceFAZolin SOD 2 GM in IV 1 EA IV SCH ×2 (12:47→20:36)
[2019-04-18] MEDS: SLF 3 ML SYR IV SCH ×2 (14:25→20:37)
[2019-04-18 16:00] VITALS: BP 100/60
--- NOTE | 2019-04-18 17:06 | IPN ---
DATE: 04/18/2019 Jenny is doing slightly better. She still complains of back pain radiating to the right lower quadrant. She was seen by Dr. Ferrell today who is planning to take her back to the operating room on Sunday and hopefully get a wound VAC on. She stated that [facility] will not [facility] her as a patient. She had been discharged last year for some reason that she cannot explain to me. She has had no fever or chills. No nausea, vomiting or diarrhea. No abdominal pain. Patient concerned about IV antibiotics and Clostridium (C) difficile that she had last year. Temperature is 97.2, pulse 78, respirations 18, blood pressure 151/68, oxygen saturation (O2 sat) 95% on room air. Heart: Normal S1, S2. No murmurs. Lungs are clear. No wheezes, rales or rhonchi. Abdomen: Soft, obese, nontender. No hepatosplenomegaly. Back: No costovertebral angle (CVA) tenderness. Mid back with a very large ulcer measuring at least 15 cm x 10 cm with purulent dressing, bloody discharge surrounding cellulitis. LABORATORY: White count 7.7, hemoglobin 11.6, hematocrit 38.4, platelets 238, 75% neutrophils, 11% lymphocytes, 8% monocytes. ESR 63. Sodium 133, potassium 4.8, chloride 99, bicarbonate 28, BUN 31, creatinine 1.07, glucose 188. AST 53, ALT 58, alkaline phosphatase 245, CRP 12. Wound culture was positive for methicillin-sensitive Staphylococcus aureus (MSSA). Blood culture on 04/15/2019 one out of two was positive for gram positive cocci in clusters. I suspect this is a contaminant. Repeat blood cultures on 04/16/2019 and 04/17/2019 three sets are negative. IMPRESSION: 1. Recurrent necrotizing Staphylococcus aureus abscesses with negative workup for immunodeficiency. The patient will be switched from IV vancomycin to IV cefazolin 2 grams every 8 hours. The patient will need further debridement and wound VAC to be placed. 2. Uncontrolled diabetes. May be contributing to her recurrent infections. The patient's HbA1c have always been over 12 for the past year and half. 3. History of Clostridium difficile colitis. The patient has had no bowel movement since admission. PLAN: Discontinue IV vancomycin and start cefazolin 2 grams IV every 8 hours. <<3:08>> Once the patient is clinically improved, cellulitis and abscess have gotten better, she could be switched to oral antibiotics. I would recommend she gets treated with doxycycline on discharge and probably remain on it for a prolonged period of time, chronic suppressive therapy, until diabetes is better controlled and staph aureus colonization has been dealt with. I probably would also give her a short course of rifampin for biofilm. This will be taken care of as an outpatient. I did discuss the case with [facility] and family services ([facility]) regarding wound VAC and need for nursing to followup. Rosa from [facility] will be calling [facility] to see what the problem was with her being discharged from [facility] and reach out to other agency if needed. JAD
[2019-04-18] MEDS: GLUCOSE 4 GM CHEW TABLET PO PRN ×2 (17:34→17:40)
[2019-04-18] MEDS: WARFARIN SOD 5 MG TAB PO SCH (17:49)
[2019-04-18] MEDS: diphenhydrAMINE INJ 50MG/ML VIAL (J1200) IV PRN (18:44)
[2019-04-18 20:00] VITALS: BP 133/58
[2019-04-18] MEDS: PREGABALIN 75 MG CAP(LYRICA) PO SCH (20:37)
[2019-04-18] MEDS: ATORVASTATIN 20 MG TAB PO SCH (20:37)
[2019-04-19] VITALS (7 sets, daily range): BP systolic 122–143; BP diastolic 55–85
[2019-04-19] MEDS: ceFAZolin SOD 2 GM in IV 1 EA IV SCH ×3 (04:25→20:25)
[2019-04-19] MEDS: diphenhydrAMINE INJ 50MG/ML VIAL (J1200) IV PRN (04:26)
[2019-04-19 05:05] LABS: HEMOGLOBIN 9.9 g/dl (12.0-15.5); MEAN CORPUSCULAR HEMOGLOBIN 24.6 pg (27.0-33.0); MEAN CORPUSCULAR VOLUME 82.1 fl (80.0-96.0); PLATELET COUNT, AUTOMATED 227 10^3/uL (150-450); RED BLOOD COUNT 4.02 10^6/uL (4.00-5.40); WHITE BLOOD COUNT 8.5 10^3/uL (4.0-10.0)
[2019-04-19 05:14] LABS: INR 1.85; PROTHROMBIN TIME 21.1 SECONDS (11.8-14.0)
[2019-04-19 05:34] LABS: CALCIUM LEVEL 8.8 MG/DL (8.5-10.1); CREATININE FOR GFR 1.03 MG/DL (0.55-1.30); POTASSIUM SERUM 4.8 MEQ/L (3.5-5.1)
[2019-04-19] MEDS: LEVOTHYROXINE 137MCG TABLET (0.137MG) PO SCH (05:36)
[2019-04-19] MEDS: SLF 3 ML SYR IV SCH ×3 (05:37→20:27)
[2019-04-19] MEDS: PERCOCET 5MG/325MG TAB PO PRN ×4 (05:37→20:27)
[2019-04-19] MEDS: POTASSIUM CHLORIDE 10 MEQ SR TABLET PO SCH (08:46)
[2019-04-19] MEDS: CARVedilol 6.25 MG TAB PO SCH ×2 (08:46→20:26)
[2019-04-19] MEDS: LACTOBACILLUS ACIDOPHILUS CAP (BACID) PO SCH ×2 (08:46→18:08)
[2019-04-19] MEDS: ASPIRIN 81 MG ENTERIC TAB PO SCH (08:46)
[2019-04-19] MEDS: HumaLOG INSULIN (NovoLOG) PER UNIT SC SCH ×4 (08:47→20:16)
[2019-04-19] MEDS: LEVEMIR (INSULIN DETEMIR) 1 UNITS/0.01ML SC SCH ×2 (08:48→20:17)
[2019-04-19] MEDS: PARoxetine 10MG TABLET PO SCH (08:48)
[2019-04-19] MEDS: FUROSEMIDE 40 MG TAB PO SCH (08:48)
[2019-04-19] MEDS: FAMOTIDINE 20 MG TAB PO SCH ×2 (08:48→20:26)
[2019-04-19] MEDS: PREGABALIN 75 MG CAP(LYRICA) PO SCH ×2 (08:48→20:26)
[2019-04-19] MEDS: DIAPER RELIEF PASTE (DESITIN) 60GM TOP SCH (08:50)
--- NOTE | 2019-04-19 10:55 | IPNPDOC ---
Subjective Date Seen The patient was seen on 04/19/19. Subjective Chief Complaint/HPI As per patient. Que does not work and she is requesting something else for itching, pain is much less in the back after the debridement General: Reports: Other Symptoms (itching all over body) Constitutional: Denies: Chills, Fever, Malaise, Night Sweats, Weakness, Fatigue, Weight Loss, Lethargy, Other Eyes: Denies: Pain, Vision change, Conjunctivae inflammation, Eyelid inflammation, Redness, Other ENT: Denies: Head Aches, Ear Pain, Dysphagia, Sinus Congestion, Post Nasal Drip, Sore Throat, Epistaxis, Other Symptoms Skin: Reports: Itching; Denies: Rash, Lesions, Jaundice, Bruising, Dry, Breakdown, Nail Changes, Other Pulmonary: Denies: Dyspnea, Cough, Pleuritic Chest Pain, Other Symptoms Cardiovascular: Denies: Chest Pain, Palpitations, Orthopnea, Paroxysmal Noc. Dyspnea, Edema, Lt Headedness, Other Symptoms Gastrointestinal: Denies: Nausea, Vomiting, Abdominal Pain, Diarrhea, Constipation, Melena, Hematochezia, Other Symptoms Musculoskeletal: Denies: Neck Pain, Back Pain, Shoulder Pain, Arm Pain, Hand Pain, Leg Pain, Foot Pain, Joint Pain, Muscle Pain, Spasms, Other Symptoms Neurological: Denies: Weakness, Numbness, Incoordination, Change in speech, Confusion, Seizures, Other Symptoms Objective Physical Examination General Exam: Positive: Alert, Cooperative Eye Exam: Positive: PERRLA, Conjunctiva & lids normal ENT Exam: Positive: Atraumatic Neck Exam: Positive: Supple Chest Exam: Positive: Clear to auscultation, Normal air movement Heart Exam: Positive: Rate Normal, Normal S1, Normal S2 Abdomen Exam: Positive: Normal bowel sounds, Soft, Tenderness Extremity Exam: Positive: Normal pulses Skin Exam: Positive: Other skin issue (dressing and a large wound in the back) Neuro Exam: Positive: Sensation Intact Assessment /Plan Problems (1) Necrotizing cellulitis Status: Acute Problem Text: Status post debridement by Dr. Ferrell Discussed with Dr. Graham regarding infectious disease intervention On cefazolin as per Dr. graham Possibility can be placed on by mouth Bactrim/or frothing/doxycycline on discharge for chronic suppression Will start Atarax 25 mg by mouth every 6 hours when necessary for itching Wound culture shows MSSA and blood culture 1 bottle shows staph aureus which most likely is contamination Pain management Continue present care Transferred to [facility] floor (2) Diabetes mellitus Status: Chronic Problem Text: Uncontrolled diabetes mellitus type 2 with presenting glucose of 752 pseudohyponatremia with sodium of 125 and a GI Patient's fingerstick is much better controlled now Hence, she has been started fingerstick every before meals and at bedtime with coverage Continue home medications Decreaseddetemir 45 units subcutaneous every 12 hours due to 2 episodes of h ypoglycemia Continue monitoring fingerstick blood sugar with coverage Continue all home meds (3) Supratherapeutic INR Status: Resolved Problem Text: INR is 2.73. Today Restart by mouth Coumadin To keep INR between 2.5-3.5 (4) Hypothyroid Status: Chronic Problem Text: Continue home meds Plan/VTE VTE Prophylaxis Ordered?: Yes VS, I&O, 24H, Fishbone Vital Signs/I&O Vital Signs Date Time Temp Pulse Resp B/P (MAP) Pulse Ox O2 Delivery O2 Flow Rate FiO2 04/19/19 08:46 70 126/72 04/19/19 08:00 95.4 19 100 Room Air I&O- Last 24 Hours up to 6 AM 04/19/19 05:59 Intake Total 370 ml Output Total 450 ml Balance -80 ml Laboratory Data 24H LABS Laboratory Tests 2 04/18/19 12:08: Bedside Glucose (Misc Panel) 138H 04/18/19 16:59: Bedside Glucose (Misc Panel) 42L 04/18/19 17:23: Bedside Glucose (Misc Panel) 43L 04/18/19 18:15: Bedside Glucose (Misc Panel) 86 04/18/19 20:28: Bedside Glucose (Misc Panel) 134H 04/19/19 04:46: Nucleated Red Blood Cells % (auto) 0.0, Prothrombin Time 21.1H, Prothromb Time International Ratio 1.85, Anion Gap 4L, Glomerular Filtration Rate 59.0, Calcium Level 8.8 04/19/19 07:24: Bedside Glucose (Misc Panel) 236H CBC/BMP Laboratory Tests 04/19/19 04:46 Microbiology Microbiology 04/17/19 Blood Culture - Preliminary, Resulted No Growth after 48 hours. All Specime... 04/17/19 Blood Culture - Preliminary, Resulted No Growth after 48 hours. All Specime... 04/16/19 Blood Culture - Preliminary, Resulted No Growth after 48 hours. All Specime... 04/16/19 Gram Stain - Final, Complete 04/16/19 Wound Culture - Final, Complete Staphylococcus Aureus 04/15/19 Blood Culture - Preliminary, Resulted No Growth after 72 hours. All specime... 04/15/19 Blood Culture - Final, Complete Staphylococcus Hominis Ssp Carlos NAVIN VILLEGAS MD Apr 19, 2019 10:55
[2019-04-19] MEDS: hydrOXYzine 25 MG TAB PO PRN ×2 (11:42→18:08)
[2019-04-19] MEDS: WARFARIN SOD 5 MG TAB PO SCH (18:08)
[2019-04-19] MEDS: ATORVASTATIN 20 MG TAB PO SCH (20:26)
[2019-04-20] MEDS: hydrOXYzine 25 MG TAB PO PRN ×3 (02:55→16:05)
[2019-04-20] MEDS: PERCOCET 5MG/325MG TAB PO PRN ×5 (02:56→20:45)
[2019-04-20] MEDS: ceFAZolin SOD 2 GM in IV 1 EA IV SCH ×3 (04:37→20:22)
[2019-04-20] MEDS: LEVOTHYROXINE 137MCG TABLET (0.137MG) PO SCH (05:34)
[2019-04-20] MEDS: SLF 3 ML SYR IV SCH ×3 (05:36→22:00)
[2019-04-20 06:00] VITALS: BP 110/47
[2019-04-20 06:02] LABS: BASO % 0.8 % (0.0-1.0); EOS # 0.1 10^3/uL (0.0-0.5); EOS % 2.3 % (0.0-3.0); HEMOGLOBIN 8.9 g/dl (12.0-15.5); LYMPH # 1.3 10^3/uL (1.5-5.0); LYMPH % 23.6 % (24.0-44.0); MEAN CORPUSCULAR HEMOGLOBIN 24.7 pg (27.0-33.0); MEAN CORPUSCULAR HGB CONC 29.7 g/dl (32.0-36.5); MEAN CORPUSCULAR VOLUME 83.1 fl (80.0-96.0); MONO # 0.4 10^3/uL (0.0-0.8); MONO % 7.2 % (0.0-5.0); NEUTROPHILS # 3.3 10^3/uL (1.5-8.5); NEUTROPHILS % 61.9 % (36.0-66.0); PLATELET COUNT, AUTOMATED 241 10^3/uL (150-450); RED BLOOD COUNT 3.61 10^6/uL (4.00-5.40); WHITE BLOOD COUNT 5.3 10^3/uL (4.0-10.0)
[2019-04-20 06:16] LABS: INR 2.21; PROTHROMBIN TIME 24.3 SECONDS (11.8-14.0)
[2019-04-20 06:27] LABS: ALBUMIN 2.1 GM/DL (3.2-5.2); BILIRUBIN,TOTAL 0.2 MG/DL (0.2-1.0); CALCIUM LEVEL 8.7 MG/DL (8.5-10.1); CREATININE FOR GFR 1.14 MG/DL (0.55-1.30); GLOMERULAR FILTRATION RATE 52.5 (>51); POTASSIUM SERUM 4.7 MEQ/L (3.5-5.1); TOTAL PROTEIN 6.4 GM/DL (6.4-8.2)
--- NOTE | 2019-04-20 06:46 | ECHO ---
DATE OF PROCEDURE: 04/19/2019 DATE OF : 1960 AGE: 58 GENDER: Female. HEIGHT: 69 inches. WEIGHT: 203 pounds BODY SURFACE AREA: 2.08 m2 INPATIENT: Progressive care unit (PCU) Room 3213 REFERRING PHYSICIAN: Dr. Everardo Connelly INDICATION: Bacteremia. Atrial fibrillation. Mechanical prosthetic valve. MEASUREMENTS: 2-D Measurements: RV: 4.2 cm LV: 5.5 cm Septum: 1.1 cm Posterior wall: 1.1 cm Aortic root: 3.0 cm LA: 4.8 cm LVEF: 35% Doppler Measurements: AV: 1.03 m/s LVOT: 0.82 m/s LVOT diameter: 2.1 cm MV: E: 203 Mean MV diastolic gradient: 6 mmHg PV: 0.75 m/s Pulmonary artery acceleration time: 80 ms RVSP: 70 mmHg IVC: 3.0 cm COMMENTS: Underlying atrial fibrillation with regularized ventricular response at 81 bpm. Technically challenging study in light of the patient's body habitus. M-mode and two-dimensional echocardiography was performed with pulsed, continuous wave, color flow and tissue Doppler. Left ventricular size upper limits of normal to mildly dilated with normal LV wall thickness. Paradoxical septal motion and apical akinesis but other oropeza appear to move normally. At least moderate impairment of global resting systolic function. Prominently dilated left atrium but unable to define LV diastolic function in the setting of mitral valve disorder/prosthetic mitral valve. Mildly dilated right ventricle with normal wall motion and Doppler evidence of severe pulmonary hypertension. At least mildly dilated right atrium and prominently dilated inferior vena cava with absent respiratory collapse in keeping with elevated central venous pressure and right heart failure. Normal appearing and functioning aortic valve. Normal aortic dimensions. Mechanical prosthetic mitral valve with appropriate valve opening. Unable to visualize any actual insufficiency. Very echogenic - could not rule out endocarditis. Normal appearing tricuspid valve with moderately severe to severe tricuspid insufficiency. Pacing lead could be visualized traversing right heart structures. No pericardial effusion. If endocarditis is seriously suspect here, a transesophageal echocardiography would be required.
[2019-04-20] MEDS: HumaLOG INSULIN (NovoLOG) PER UNIT SC SCH ×4 (08:02→20:25)
[2019-04-20] MEDS: ASPIRIN 81 MG ENTERIC TAB PO SCH (08:02)
[2019-04-20] MEDS: LEVEMIR (INSULIN DETEMIR) 1 UNITS/0.01ML SC SCH ×2 (08:02→20:25)
[2019-04-20] MEDS: LACTOBACILLUS ACIDOPHILUS CAP (BACID) PO SCH ×2 (08:05→17:06)
[2019-04-20] MEDS: PARoxetine 10MG TABLET PO SCH (08:05)
[2019-04-20] MEDS: CARVedilol 6.25 MG TAB PO SCH ×2 (08:05→20:25)
[2019-04-20] MEDS: POTASSIUM CHLORIDE 10 MEQ SR TABLET PO SCH (08:05)
[2019-04-20] MEDS: FUROSEMIDE 40 MG TAB PO SCH (08:05)
[2019-04-20] MEDS: FAMOTIDINE 20 MG TAB PO SCH ×2 (08:06→20:25)
[2019-04-20] MEDS: PREGABALIN 75 MG CAP(LYRICA) PO SCH ×2 (08:10→20:22)
[2019-04-20] MEDS: DIAPER RELIEF PASTE (DESITIN) 60GM TOP SCH (08:11)
--- NOTE | 2019-04-20 10:16 | IPNPDOC ---
Subjective Date Seen The patient was seen on 04/20/19. Subjective Chief Complaint/HPI Patient complaining of painful nodules and and some reddish on the fingers on both hands since yesterday General: Reports: ROS Unobtainable Constitutional: Denies: Chills, Fever, Malaise, Night Sweats, Weakness, Fatigue, Weight Loss, Lethargy, Other Skin: Reports: Other (painful lesions on fingers on both sides of hence, with some slight rash on right index finger) Pulmonary: Denies: Dyspnea, Cough, Pleuritic Chest Pain, Other Symptoms Cardiovascular: Denies: Chest Pain, Palpitations, Orthopnea, Paroxysmal Noc. Dyspnea, Edema, Lt Headedness, Other Symptoms Gastrointestinal: Denies: Nausea, Vomiting, Abdominal Pain, Diarrhea, Constipation, Melena, Hematochezia, Other Symptoms Musculoskeletal: Denies: Neck Pain, Back Pain, Shoulder Pain, Arm Pain, Hand Pain, Leg Pain, Foot Pain, Joint Pain, Muscle Pain, Spasms, Other Symptoms Neurological: Denies: Weakness, Numbness, Incoordination, Change in speech, Confusion, Seizures, Other Symptoms Objective Physical Examination General Exam: Positive: Alert, Cooperative Eye Exam: Positive: PERRLA, Conjunctiva & lids normal ENT Exam: Positive: Atraumatic Neck Exam: Positive: Supple Chest Exam: Positive: Clear to auscultation, Normal air movement Heart Exam: Positive: Rate Normal, Normal S1, Normal S2 Abdomen Exam: Positive: Normal bowel sounds, Soft, Tenderness Extremity Exam: Positive: Normal pulses Skin Exam: Positive: Other skin issue (has a dry dressing on a her back wound. Also small dark lesions, which are painful to touch noted on fingers on both hands and a dry rash on her right index finger) Neuro Exam: Positive: Strength at 5/5 X4 ext, Sensation Intact Assessment /Plan Problems (1) Endocarditis Status: Acute Problem Text: Patient has a sudden appearance of painful lesions on fingers on both hands which are dark in color. Patient also had a similar lesion on her skull on admission Echocardiogram was done on 04/19/2019, which had showed: Left ventricular size upper limits of normal to mildly dilated with normal LV wall thickness. Paradoxical septal motion and apical akinesis but other oropeza appear to move normally. At least moderate impairment of global resting systolic function. Prominently dilated left atrium but unable to define LV diastolic function in the setting of mitral valve disorder/prosthetic mitral valve. Mildly dilated right ventricle with normal wall motion and Doppler evidence of severe pulmonary hypertension. At least mildly dilated right atrium and prominently dilated inferior vena cava with absent respiratory collapse in keeping with elevated central venous pressure and right heart failure. Normal appearing and functioning aortic valve. Normal aortic dimensions. Mechanical prosthetic mitral valve with appropriate valve opening. Unable to visualize any actual insufficiency. Very echogenic - could not rule out endocarditis. Normal appearing tricuspid valve with moderately severe to severe tricuspid insufficiency. Pacing lead could be visualized traversing right heart structures. No pericardial effusion. If endocarditis is seriously suspect here, a transesophageal echocardiography would be required. I have a strong suspicion possibility of subacute bacterial endocarditis, Dr. Moses collins was called today and I spoke with him and he will let and to call no tomorrow for STEPHANIE to confirm the diagnosis. If there is any evidence of endocarditis. We'll continue present antibiotics Hydrocortisone 1% cream for symptom treatment of dryness and lesions on fingers Will also get input from ID tomorrow morning (2) Necrotizing cellulitis Status: Acute Problem Text: Status post debridement by Dr. Ferrell Discussed with Dr. Graham regarding infectious disease intervention On cefazolin as per Dr. graham Possibility can be placed on by mouth Bactrim/or rifaxin /doxycycline on discharge for chronic suppression Will start Atarax 25 mg by mouth every 6 hours when necessary for itching Wound culture shows MSSA and blood culture 1 bottle shows staph aureus which most likely is contamination Patient transferred to [facility] floor Continue present meds (3) Diabetes mellitus Status: Chronic Problem Text: Uncontrolled diabetes mellitus type 2 with presenting glucose of 752 pseudohyponatremia with sodium of 125 and a GI Patient's fingerstick is much better controlled now Hence, she has been started fingerstick every before meals and at bedtime with coverage Continue home medications Decreaseddetemir 45 units subcutaneous every 12 hours due to 2 episodes of hypoglycemia Continue monitoring fingerstick blood sugar with coverage Continue all home meds (4) Supratherapeutic INR Status: Resolved Problem Text: INR is 2.73. Today Restart by mouth Coumadin To keep INR between 2.5-3.5 (5) Hypothyroid Status: Chronic Problem Text: Continue home meds Plan/VTE VTE Prophylaxis Ordered?: Yes VS, I&O, 24H, Fishbone Vital Signs/I&O Vital Signs Date Time Temp Pulse Resp B/P (MAP) Pulse Ox O2 Delivery O2 Flow Rate FiO2 04/20/19 08:07 17 04/20/19 08:05 91 137/54 04/20/19 06:00 97.8 100 Room Air I&O- Last 24 Hours up to 6 AM 04/20/19 06:00 Intake Total 1485 ml Output Total 400 ml Balance 1085 ml Laboratory Data 24H LABS Laboratory Tests 2 04/19/19 11:44: Bedside Glucose (Misc Panel) 306H 04/19/19 16:36: Bedside Glucose (Misc Panel) 133H 04/19/19 20:14: Bedside Glucose (Misc Panel) 174H 04/20/19 05:34: Immature Granulocyte % (Auto) 4.2H, Neutrophils (%) (Auto) 61.9, Lymphocytes (%) (Auto) 23.6L, Monocytes (%) (Auto) 7.2H, Eosinophils (%) (Auto) 2.3, Basophils (%) (Auto) 0.8, Neutrophils # (Auto) 3.3, Lymphocytes # (Auto) 1.3L, Monocytes # (Auto) 0.4, Eosinophils # (Auto) 0.1, Basophils # (Auto) 0.0, Nucleated Red Blood Cells % (auto) 0.0, Prothrombin Time 24.3H, Prothromb Time International Ratio 2.21, Anion Gap 6L, Glomerular Filtration Rate 52.5, Calcium Level 8.7, Total Bilirubin 0.2, Aspartate Amino Transf (AST/SGOT) 20, Alanine Aminotransferase (ALT/SGPT) 21, Alkaline Phosphatase 296H, Total Protein 6.4, Albumin 2.1L, Albumin/Globulin Ratio 0.49L CBC/BMP Laboratory Tests 04/20/19 05:34 Microbiology Microbiology 04/17/19 Blood Culture - Preliminary, Resulted No Growth after 72 hours. All specime... 04/17/19 Blood Culture - Preliminary, Resulted No Growth after 72 hours. All specime... 04/16/19 Blood Culture - Preliminary, Resulted No Growth after 72 hours. All specime... 04/16/19 Gram Stain - Final, Complete 04/16/19 Wound Culture - Final, Complete Staphylococcus Aureus 04/15/19 Blood Culture - Preliminary, Resulted No Growth after 72 hours. All specime... 04/15/19 Blood Culture - Final, Complete Staphylococcus Hominis Ssp Carlos NAVIN VILLEGAS MD Apr 20, 2019 10:16
[2019-04-20] MEDS: HYDROCORTISONE 1% CREAM 30 GM TOP SCH ×3 (11:29→20:27)
[2019-04-20 14:00] VITALS: BP 132/60
[2019-04-20] MEDS: WARFARIN SOD 5 MG TAB PO SCH (16:06)
[2019-04-20 20:00] VITALS: BP 135/54
[2019-04-20] MEDS: ATORVASTATIN 20 MG TAB PO SCH (20:25)
[2019-04-21] MEDS: PERCOCET 5MG/325MG TAB PO PRN ×5 (01:03→21:51)
[2019-04-21] MEDS: hydrOXYzine 25 MG TAB PO PRN ×3 (01:03→21:52)
[2019-04-21] MEDS: ceFAZolin SOD 2 GM in IV 1 EA IV SCH ×2 (03:42→16:18)
[2019-04-21] MEDS: LEVOTHYROXINE 137MCG TABLET (0.137MG) PO SCH (05:53)
[2019-04-21 05:55] LABS: HEMATOCRIT 31.2 % (36.0-47.0); HEMOGLOBIN 9.2 g/dl (12.0-15.5); MEAN CORPUSCULAR HEMOGLOBIN 24.9 pg (27.0-33.0); MEAN CORPUSCULAR HGB CONC 29.5 g/dl (32.0-36.5); MEAN CORPUSCULAR VOLUME 84.6 fl (80.0-96.0); PLATELET COUNT, AUTOMATED 331 10^3/uL (150-450); RED BLOOD COUNT 3.69 10^6/uL (4.00-5.40); WHITE BLOOD COUNT 7.5 10^3/uL (4.0-10.0)
[2019-04-21] MEDS: SLF 3 ML SYR IV SCH ×2 (05:59→13:43)
[2019-04-21 06:00] VITALS: BP_SYST 118; BP_SYST 138; BP_DIAS 58; BP_DIAS 69
[2019-04-21 06:12] LABS: INR 2.42; PROTHROMBIN TIME 26.2 SECONDS (11.8-14.0)
[2019-04-21 06:14] LABS: CALCIUM LEVEL 8.7 MG/DL (8.5-10.1); CREATININE FOR GFR 1.13 MG/DL (0.55-1.30); POTASSIUM SERUM 5.6 MEQ/L (3.5-5.1)
[2019-04-21] MEDS: HumaLOG INSULIN (NovoLOG) PER UNIT SC SCH ×4 (07:44→21:53)
[2019-04-21] MEDS: LACTOBACILLUS ACIDOPHILUS CAP (BACID) PO SCH ×2 (07:44→16:56)
[2019-04-21] MEDS: LEVEMIR (INSULIN DETEMIR) 1 UNITS/0.01ML SC SCH ×2 (08:14→21:53)
[2019-04-21] MEDS: FAMOTIDINE 20 MG TAB PO SCH ×2 (08:20→21:50)
[2019-04-21] MEDS: PREGABALIN 75 MG CAP(LYRICA) PO SCH ×2 (08:20→21:50)
[2019-04-21] MEDS: FUROSEMIDE 40 MG TAB PO SCH (08:20)
[2019-04-21] MEDS: PARoxetine 10MG TABLET PO SCH (08:20)
[2019-04-21] MEDS: ASPIRIN 81 MG ENTERIC TAB PO SCH (08:20)
[2019-04-21] MEDS: POTASSIUM CHLORIDE 10 MEQ SR TABLET PO SCH (08:22)
[2019-04-21] MEDS: CARVedilol 6.25 MG TAB PO SCH ×2 (08:22→21:52)
[2019-04-21] MEDS: HYDROCORTISONE 1% CREAM 30 GM TOP SCH ×3 (08:23→21:53)
[2019-04-21] MEDS: DIAPER RELIEF PASTE (DESITIN) 60GM TOP SCH (08:24)
--- NOTE | 2019-04-21 10:42 | IPNPDOC ---
Subjective Date Seen The patient was seen on 04/21/19. Subjective Chief Complaint/HPI pt offers no new complaints at present General: Denies: ROS Unobtainable, Chills, Night Sweats, Fatigue, Malaise, Normal Appetite, Other Symptoms Constitutional: Denies: Chills, Fever, Malaise, Night Sweats, Weakness, Fatigue, Weight Loss, Lethargy, Other Pulmonary: Denies: Dyspnea, Cough, Pleuritic Chest Pain, Other Symptoms Cardiovascular: Denies: Chest Pain, Palpitations, Orthopnea, Paroxysmal Noc. Dyspnea, Edema, Lt Headedness, Other Symptoms Gastrointestinal: Denies: Nausea, Vomiting, Abdominal Pain, Diarrhea, Constipation, Melena, Hematochezia, Other Symptoms Musculoskeletal: Denies: Neck Pain, Back Pain, Shoulder Pain, Arm Pain, Hand Pain, Leg Pain, Foot Pain, Joint Pain, Muscle Pain, Spasms, Other Symptoms Neurological: Denies: Weakness, Numbness, Incoordination, Change in speech, Confusion, Seizures, Other Symptoms Objective Physical Examination General Exam: Positive: Alert, Cooperative Eye Exam: Positive: PERRLA, Conjunctiva & lids normal ENT Exam: Positive: Atraumatic Neck Exam: Positive: Supple Chest Exam: Positive: Clear to auscultation, Normal air movement Heart Exam: Positive: Rate Normal, Normal S1, Normal S2 Abdomen Exam: Positive: Normal bowel sounds, Soft, Tenderness Extremity Exam: Positive: Normal pulses Skin Exam: Positive: Other skin issue (has a dry dressing on a her back wound. Also small dark lesions, which are painful to touch noted on fingers on both hands and a dry rash on her right index finger) Neuro Exam: Positive: Strength at 5/5 X4 ext, Sensation Intact Assessment /Plan Problems (1) Endocarditis Status: Acute Problem Text: Patient has a sudden appearance of painful lesions on fingers on both hands which are dark in color. Patient also had a similar lesion on her skull on admission Echocardiogram was done on 04/19/2019, which had showed: Left ventricular size upper limits of normal to mildly dilated with normal LV wall thickness. Paradoxical septal motion and apical akinesis but other oropeza appear to move normally. At least moderate impairment of global resting systolic function. Prominently dilated left atrium but unable to define LV diastolic function in the setting of mitral valve disorder/prosthetic mitral valve. Mildly dilated right ventricle with normal wall motion and Doppler evidence of severe pulmonary hypertension. At least mildly dilated right atrium and prominently dilated inferior vena cava with absent respiratory collapse in keeping with elevated central venous pressure and right heart failure. Normal appearing and functioning aortic valve. Normal aortic dimensions. Mechanical prosthetic mitral valve with appropriate valve opening. Unable to visualize any actual insufficiency. Very echogenic - could not rule out endocarditis. Normal appearing tricuspid valve with moderately severe to severe tricuspid insufficiency. Pacing lead could be visualized traversing right heart structures. No pericardial effusion. If endocarditis is seriously suspect here, a transesophageal echocardiography would be required. I have a strong suspicion possibility of subacute bacterial endocarditis, STEPHANIE has been requested. Awaiting procedure to be done by We'll continue present antibiotics Hydrocortisone 1% cream for symptom treatment of dryness and lesions on fingers (2) Necrotizing cellulitis Status: Acute Problem Text: Status post debridement by Dr. Ferrell Discussed with Dr. Graham regarding infectious disease intervention On cefazolin as per Dr. graham Possibility can be placed on by mouth Bactrim/or rifaxin /doxycycline on discharge for chronic suppression Will start Atarax 25 mg by mouth every 6 hours when necessary for itching Wound culture shows MSSA and blood culture 1 bottle shows staph aureus which most likely is contamination Patient transferred to [facility] floor Patient is waiting for PICC line placement secondary to difficult IV access (3) Diabetes mellitus Status: Chronic Problem Text: Uncontrolled diabetes mellitus type 2 with presenting glucose of 752 pseudohyponatremia with sodium of 125 and a GI Patient's fingerstick is much better controlled now Hence, she has been started fingerstick every before meals and at bedtime with coverage Continue home medications Decrease detemir 45 units subcutaneous every 12 hours due to 2 episodes of hypoglycemia Continue monitoring fingerstick blood sugar with coverage Continue all home meds (4) Supratherapeutic INR Status: Resolved Problem Text: INR is 2.42 today Continue Coumadin as per orders To keep INR between 2.5-3.5 (5) Hypothyroid Status: Chronic Problem Text: Continue home meds Plan/VTE VTE Prophylaxis Ordered?: Yes VS, I&O, 24H, Fishbone Vital Signs/I&O Vital Signs Date Time Temp Pulse Resp B/P (MAP) Pulse Ox O2 Delivery O2 Flow Rate FiO2 04/21/19 08:22 92 162/106 04/21/19 06:24 18 Room Air 04/21/19 06:00 97.8 99 I&O- Last 24 Hours up to 6 AM 04/21/19 06:00 Intake Total 2050 ml Output Total 0 ml Balance 2050 ml Laboratory Data 24H LABS Laboratory Tests 2 04/20/19 11:32: Bedside Glucose (Misc Panel) 222H 04/20/19 16:30: Bedside Glucose (Misc Panel) 135H 04/20/19 20:20: Bedside Glucose (Misc Panel) 178H 04/21/19 05:38: Nucleated Red Blood Cells % (auto) 0.0, Prothrombin Time 26.2H, Prothromb Time International Ratio 2.42, Anion Gap 3L, Glomerular Filtration Rate 53.0, Calcium Level 8.7 CBC/BMP Laboratory Tests 04/21/19 05:38 Microbiology Microbiology 04/17/19 Blood Culture - Preliminary, Resulted No Growth after 72 hours. All specime... 04/17/19 Blood Culture - Preliminary, Resulted No Growth after 72 hours. All specime... 04/16/19 Blood Culture - Preliminary, Resulted No Growth after 72 hours. All specime... 04/16/19 Gram Stain - Final, Complete 04/16/19 Wound Culture - Final, Complete Staphylococcus Aureus 04/15/19 Blood Culture - Final, Complete NO GROWTH AFTER 5 DAYS 04/15/19 Blood Culture - Final, Complete Staphylococcus Hominis Ssp Carlos NAVIN VILLEGAS MD Apr 21, 2019 10:42
[2019-04-21 14:00] VITALS: BP 140/70
[2019-04-21 15:00] LABS: CALCIUM LEVEL 8.8 MG/DL (8.5-10.1); CREATININE FOR GFR 1.03 MG/DL (0.55-1.30); POTASSIUM SERUM 4.8 MEQ/L (3.5-5.1)
[2019-04-21] MEDS ORDERED: LIDOCAINE 1% MDV 20ML VIAL As Ordered ONE (15:22)
[2019-04-21] MEDS ORDERED: SODIUM CHLORIDE 0.9% INJ 10 ML SYR IV PRN ×2 (16:30→17:30)
[2019-04-21] MEDS: WARFARIN SOD 5 MG TAB PO SCH (16:56)
--- NOTE | 2019-04-21 17:35 | REP ---
Procedure: PICC line insertion with Adrian The procedure was performed under the direct supervision of Dr. Jay. The risks and benefits of the procedure were explained to the patient and informed consent was obtained. The right basilic vein was localized using ultrasound guidance. The skin was prepped and draped in a sterile fashion. 1% lidocaine was used as a local anesthetic. Using ultrasound guidance the basilic vein was cannulated and a 0.018 guidewire was inserted and advanced to the SVC using fluoroscopic guidance. The needle was removed and a 4.5 [place] dilator and peel-away sheath was inserted over the guide wire. A 4.5 [place] single lumen catheter was cut to length of 43 cm. The dilator was removed and the catheter was inserted over the guide wire with the tip ending in the SVC. The peel-away sheath was removed and the catheter was flushed with heparinized saline as per Hospital protocol. The catheter was affixed to the skin and a sterile dressing was applied. The patient tolerated the procedure well and there were no immediate complications. 0.1 minutes of fluoro time was utilized for this procedure. Electronically Signed by VISHAL Campos 04/21/2019 04:32 P Electronically Signed by Reymundo Jay MD 04/21/2019 05:26 P
--- NOTE | 2019-04-21 17:39 | IPN ---
DATE: 04/21/2019 Jenny is doing well except she had developed some lesions that were painful on her fingers. She is scheduled for a transesophageal echocardiogram (STEPHANIE). She has remained afebrile and did not have positive blood cultures. Labs: White count is 7.5, hemoglobin 9.2, hematocrit 31.2, platelets 331. Sodium 137, potassium 4.8, chloride 105, bicarbonate 26, BUN 27, creatinine 1.03, glucose 144, calcium 8.8. CRP was 12. Blood cultures four sets were negative 04/15/2019, 04/16/2019, 04/17/2019, and one culture had a contaminant Staphylococcus (staph) hominis. Echocardiogram: Challenging due to body habitus. Paradoxical septal motion abnormality and moderate impairment of systolic function, prominent dilated left atrium, severe pulmonary hypertension, normal appearing tricuspid valve with moderate to severe tricuspid regurgitation. On physical exam, temperature is 98, pulse 79, respirations 18, blood pressure 140/70, oxygen saturation (O2 sat) 99% on room air. Heart: Normal S1, S2 with a systolic ejection murmur at the left lower sternal border. Lungs: Clear. No wheezes, rales or rhonchi. Abdomen: Obese, soft, nontender. No right upper quadrant tenderness. Back: Large ulceration measuring about 15 x 10 cm with still purulent drainage. There are two about 3 cm on the right side that still has pustular lesions. Tender to touch. No other open ulcerations. Extremities: No clubbing, cyanosis or edema. No calf tenderness. 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 Patient never had previous methicillin-resistant Staphylococcus aureus (MRSA), so she does not need to be on isolation. Lesions on the finger, doubt endocarditis; patient does not have bacteremia. Moderate to severe tricuspid regurgitation with decreased ejection fraction. Consider cardiology consultation. PLAN: Continue IV cefazolin. Will obtain CBC, CRP, sedimentation (sed) rate in the morning. Consider consultation with dermatology for skin lesions.
[2019-04-21] MEDS ORDERED: SODIUM CHLORIDE 0.9% INJ 10 ML SYR IV SCH (18:00)
[2019-04-21] MEDS: SODIUM CHLORIDE 0.9% INJ 10 ML SYR IV SCH (18:00)
[2019-04-21] MEDS: VARENICLINE 1 MG TABLET PO SCH (20:48)
[2019-04-21] MEDS: ATORVASTATIN 20 MG TAB PO SCH (21:52)
[2019-04-21 22:00] VITALS: BP 127/84
[2019-04-22] MEDS: ceFAZolin SOD 2 GM in IV 1 EA IV SCH ×3 (00:42→16:26)
[2019-04-22] MEDS: PERCOCET 5MG/325MG TAB PO PRN ×5 (01:59→22:39)
[2019-04-22] MEDS: LEVOTHYROXINE 137MCG TABLET (0.137MG) PO SCH (05:43)
[2019-04-22] MEDS: SODIUM CHLORIDE 0.9% INJ 10 ML SYR IV SCH ×2 (05:44→17:03)
[2019-04-22 05:59] LABS: HEMATOCRIT 27.1 % (36.0-47.0); HEMOGLOBIN 8.1 g/dl (12.0-15.5); MEAN CORPUSCULAR HEMOGLOBIN 25.2 pg (27.0-33.0); MEAN CORPUSCULAR HGB CONC 29.9 g/dl (32.0-36.5); MEAN CORPUSCULAR VOLUME 84.2 fl (80.0-96.0); PLATELET COUNT, AUTOMATED 258 10^3/uL (150-450); RED BLOOD COUNT 3.22 10^6/uL (4.00-5.40)
[2019-04-22 06:00] VITALS: BP 121/82
[2019-04-22 06:23] LABS: ALBUMIN 2.1 GM/DL (3.2-5.2); ALT/SGPT 24 U/L (12-78); BILIRUBIN,TOTAL 0.2 MG/DL (0.2-1.0); BLOOD UREA NITROGEN 25 MG/DL (7-18); C REACTIVE PROTEIN QUANTITATIV 6.41 MG/DL (0.00-0.30); CALCIUM LEVEL 8.5 MG/DL (8.5-10.1); CARBON DIOXIDE LEVEL 27 MEQ/L (21-32); CHLORIDE LEVEL 106 MEQ/L (98-107); CREATININE FOR GFR 0.91 MG/DL (0.55-1.30); GLOMERULAR FILTRATION RATE > 60.0 (>51); GLUCOSE, FASTING 240 MG/DL (70-100); POTASSIUM SERUM 4.3 MEQ/L (3.5-5.1); SODIUM LEVEL 137 MEQ/L (136-145); TOTAL PROTEIN 6.5 GM/DL (6.4-8.2)
[2019-04-22] MEDS: hydrOXYzine 25 MG TAB PO PRN ×3 (06:28→22:39)
[2019-04-22 06:30] LABS: ERYTHROCYTE SEDIMENTATION RATE > 140 mm/hr (0-30)
[2019-04-22 06:42] LABS: BASOPHILS 3 % (0-1); EOSINOPHILS 1 % (0-3); LYMPHOCYTES 27 % (16-44); METAMYELOCYTES 1 % (0-0); MONOCYTES 7 % (0-5); MYELOCYTES 2 % (0-0); NEUTROPHILS 59 % (28-66)
[2019-04-22 06:43] LABS: ANISOCYTOSIS 1+; PLATELET ESTIMATE NORMAL (NORMAL)
[2019-04-22 06:44] LABS: HYPOCHROMASIA 1+
[2019-04-22] MEDS: HumaLOG INSULIN (NovoLOG) PER UNIT SC SCH ×4 (07:04→21:00)
[2019-04-22] MEDS: PREGABALIN 75 MG CAP(LYRICA) PO SCH ×2 (08:43→22:40)
[2019-04-22] MEDS: LACTOBACILLUS ACIDOPHILUS CAP (BACID) PO SCH ×2 (08:43→17:03)
[2019-04-22] MEDS: VARENICLINE 1 MG TABLET PO SCH ×2 (08:43→22:39)
[2019-04-22] MEDS: FUROSEMIDE 40 MG TAB PO SCH (08:44)
[2019-04-22] MEDS: CARVedilol 6.25 MG TAB PO SCH ×2 (08:44→22:40)
[2019-04-22] MEDS: POTASSIUM CHLORIDE 10 MEQ SR TABLET PO SCH (08:44)
[2019-04-22] MEDS: ASPIRIN 81 MG ENTERIC TAB PO SCH (08:44)
[2019-04-22] MEDS: PARoxetine 10MG TABLET PO SCH (08:44)
[2019-04-22] MEDS: FAMOTIDINE 20 MG TAB PO SCH ×2 (08:44→22:39)
[2019-04-22] MEDS: DIAPER RELIEF PASTE (DESITIN) 60GM TOP SCH (08:45)
[2019-04-22] MEDS: LEVEMIR (INSULIN DETEMIR) 1 UNITS/0.01ML SC SCH ×2 (08:45→22:41)
[2019-04-22] MEDS: HYDROCORTISONE 1% CREAM 30 GM TOP SCH ×3 (08:46→22:42)
--- NOTE | 2019-04-22 10:53 | IPNPDOC ---
Subjective Date Seen The patient was seen on 04/22/19. Subjective Chief Complaint/HPI offers no new complaints, awaiting STEPHANIE General: Denies: ROS Unobtainable, Chills, Night Sweats, Fatigue, Malaise, Nor mal Appetite, Other Symptoms Constitutional: Denies: Chills, Fever, Malaise, Night Sweats, Weakness, Fatigue, Weight Loss, Lethargy, Other Eyes: Denies: Pain, Vision change, Conjunctivae inflammation, Eyelid inflammation, Redness, Other ENT: Denies: Head Aches, Ear Pain, Dysphagia, Sinus Congestion, Post Nasal Drip, Sore Throat, Epistaxis, Other Symptoms Skin: Denies: Rash, Lesions, Jaundice, Bruising, Itching, Dry, Breakdown, Nail Changes, Other Pulmonary: Denies: Dyspnea, Cough, Pleuritic Chest Pain, Other Symptoms Cardiovascular: Denies: Chest Pain, Palpitations, Orthopnea, Paroxysmal Noc. Dyspnea, Edema, Lt Headedness, Other Symptoms Gastrointestinal: Denies: Nausea, Vomiting, Abdominal Pain, Diarrhea, Constipation, Melena, Hematochezia, Other Symptoms Endocrine: Denies: Polydipsia, Polyphagia, Polyuria, Heat Intolerance, Cold Intolerance, Other Endocrine Sx Musculoskeletal: Denies: Neck Pain, Back Pain, Shoulder Pain, Arm Pain, Hand Pain, Leg Pain, Foot Pain, Joint Pain, Muscle Pain, Spasms, Other Symptoms Neurological: Denies: Weakness, Numbness, Incoordination, Change in speech, Confusion, Seizures, Other Symptoms Objective Physical Examination General Exam: Positive: Alert, Cooperative Neck Exam: Positive: Supple Chest Exam: Positive: Clear to auscultation, Normal air movement Heart Exam: Positive: Rate Normal, Normal S1, Normal S2 Abdomen Exam: Positive: Normal bowel sounds, Soft, Tenderness Extremity Exam: Positive: Normal pulses Skin Exam: Positive: Other skin issue (has a dry dressing on a her back wound. Also small dark lesions, which are painful to touch noted on fingers on both hands and a dry rash on her right index finger) Neuro Exam: Positive: Strength at 5/5 X4 ext, Sensation Intact Assessment /Plan Problems (1) Endocarditis Status: Acute Problem Text: Patient has a sudden appearance of painful lesions on fingers on both hands which are dark in color. Patient also had a similar lesion on her skull on admission Echocardiogram was done on 04/19/2019, which had showed: Left ventricular size upper limits of normal to mildly dilated with normal LV wall thickness. Paradoxical septal motion and apical akinesis but other oropeza appear to move normally. At least moderate impairment of global resting systolic function. Prominently dilated left atrium but unable to define LV diastolic function in the setting of mitral valve disorder/prosthetic mitral valve. Mildly dilated right ventricle with normal wall motion and Doppler evidence of severe pulmonary hypertension. At least mildly dilated right atrium and prominently dilated inferior vena cava with absent respiratory collapse in keeping with elevated central venous pr essure and right heart failure. Normal appearing and functioning aortic valve. Normal aortic dimensions. Mechanical prosthetic mitral valve with appropriate valve opening. Unable to visualize any actual insufficiency. Very echogenic - could not rule out endocarditis. Normal appearing tricuspid valve with moderately severe to severe tricuspid insufficiency. Pacing lead could be visualized traversing right heart structures. No pericardial effusion. If endocarditis is seriously suspect here, a transesophageal echocardiography would be required. I have a strong suspicion possibility of subacute bacterial endocarditis, STEPHANIE has been requested, scheduling is still awaited We'll continue present antibiotics Hydrocortisone 1% cream for symptom treatment of dryness and lesions on fingers (2) Necrotizing cellulitis Status: Acute Problem Text: Status post debridement by Dr. Ferrell Discussed with Dr. Graham regarding infectious disease intervention On cefazolin as per Dr. graham Possibility can be placed on by mouth Bactrim/or rifaxin /doxycycline on discharge for chronic suppression Will start Atarax 25 mg by mouth every 6 hours when necessary for itching Wound culture shows MSSA and blood culture 1 bottle shows staph aureus which most likely is contamination Patient transferred to [facility] floor PICC line placed in for IV access (3) Diabetes mellitus Status: Chronic Problem Text: Uncontrolled diabetes mellitus type 2 with presenting glucose of 752 pseudohyponatremia with sodium of 125 and a GI Patient's fingerstick is much better controlled now Hence, she has been started fingerstick every before meals and at bedtime with coverage Continue home medications Decrease detemir 45 units subcutaneous every 12 hours due to 2 episodes of hypoglycemia Continue monitoring fingerstick blood sugar with coverage Continue all home meds (4) Supratherapeutic INR Status: Resolved Problem Text: INR is 2.42 today Continue Coumadin as per orders To keep INR between 2.5-3.5 (5) Hypothyroid Status: Chronic Problem Text: Continue home meds Plan/VTE VTE Prophylaxis Ordered?: Yes VS, I&O, 24H, Fishbone Vital Signs/I&O Vital Signs Date Time Temp Pulse Resp B/P (MAP) Pulse Ox O2 Delivery O2 Flow Rate FiO2 04/22/19 10:47 18 04/22/19 08:44 79 121/82 04/22/19 06:28 Room Air 04/22/19 06:00 96.0 97 I&O- Last 24 Hours up to 6 AM 04/22/19 05:59 Intake Total 2450 ml Output Total 300 ml Balance 2150 ml Laboratory Data 24H LABS Laboratory Tests 2 04/21/19 11:47: Bedside Glucose (Misc Panel) 133H 04/21/19 14:18: Anion Gap 6L, Glomerular Filtration Rate 59.0, Calcium Level 8.8 04/21/19 16:50: Bedside Glucose (Misc Panel) 264H 04/21/19 21:42: Bedside Glucose (Misc Panel) 286H 04/22/19 05:39: Nucleated Red Blood Cells % (auto) 0.0, Neutrophils 59, Lymphocytes (Manual) 27, Monocytes (Manual) 7H, Eosinophils (Manual) 1, Basophils (Manual) 3H, Metamyelocytes 1H, Myelocytes 2H, Hypochromasia 1+, Anisocytosis 1+, Platelet Estimate NORMAL, Erythrocyte Sedimentation Rate > 140H, Anion Gap 4L, Glomerular Filtration Rate > 60.0, Calcium Level 8.5, Total Bilirubin 0.2, Aspartate Amino Transf (AST/SGOT) 44H, Alanine Aminotransferase (ALT/SGPT) 24, Alkaline Phosphatase 539H, C-Reactive Protein, Quantitative 6.41H, Total Protein 6.5, Albumin 2.1L, Albumin/Globulin Ratio 0.48L 04/22/19 05:57: Bedside Glucose (Misc Panel) 237H CBC/BMP Laboratory Tests 04/21/19 14:18 04/22/19 05:39 Microbiology Microbiology 04/17/19 Blood Culture - Final, Complete NO GROWTH AFTER 5 DAYS 04/17/19 Blood Culture - Final, Complete NO GROWTH AFTER 5 DAYS 04/16/19 Blood Culture - Final, Complete NO GROWTH AFTER 5 DAYS 04/16/19 Gram Stain - Final, Complete 04/16/19 Wound Culture - Final, Complete Staphylococcus Aureus 04/15/19 Blood Culture - Final, Complete NO GROWTH AFTER 5 DAYS 04/15/19 Blood Culture - Final, Complete Staphylococcus Hominis Ssp Carlos NAVIN VILLEGAS MD Apr 22, 2019 10:53
[2019-04-22 11:57] LABS: INR 3.14; PROTHROMBIN TIME 32.2 SECONDS (11.8-14.0)
[2019-04-22 14:00] VITALS: BP 135/66
[2019-04-22] MEDS: WARFARIN SOD 5 MG TAB PO SCH (16:26)
[2019-04-22 22:00] VITALS: BP 131/67
[2019-04-22] MEDS: ATORVASTATIN 20 MG TAB PO SCH (22:38)
[2019-04-23] MEDS: ceFAZolin SOD 2 GM in IV 1 EA IV SCH ×3 (01:09→16:25)
[2019-04-23] MEDS: LEVOTHYROXINE 137MCG TABLET (0.137MG) PO SCH (05:32)
[2019-04-23] MEDS: SODIUM CHLORIDE 0.9% INJ 10 ML SYR IV SCH ×2 (05:32→16:25)
[2019-04-23 06:00] VITALS: BP 131/66
[2019-04-23] MEDS: PERCOCET 5MG/325MG TAB PO PRN ×4 (06:29→21:19)
[2019-04-23] MEDS: hydrOXYzine 25 MG TAB PO PRN ×3 (06:29→21:18)
[2019-04-23] MEDS: HumaLOG INSULIN (NovoLOG) PER UNIT SC SCH ×4 (07:30→20:07)
[2019-04-23] MEDS: LEVEMIR (INSULIN DETEMIR) 1 UNITS/0.01ML SC SCH ×2 (08:00→20:08)
[2019-04-23] MEDS: DIAPER RELIEF PASTE (DESITIN) 60GM TOP SCH (08:13)
[2019-04-23] MEDS: HYDROCORTISONE 1% CREAM 30 GM TOP SCH ×3 (08:13→21:20)
[2019-04-23] MEDS: PARoxetine 10MG TABLET PO SCH (08:13)
[2019-04-23] MEDS: VARENICLINE 1 MG TABLET PO SCH ×2 (08:14→21:18)
[2019-04-23] MEDS: POTASSIUM CHLORIDE 10 MEQ SR TABLET PO SCH (08:14)
[2019-04-23] MEDS: PREGABALIN 75 MG CAP(LYRICA) PO SCH ×2 (08:14→21:18)
[2019-04-23] MEDS: FUROSEMIDE 40 MG TAB PO SCH (08:14)
[2019-04-23] MEDS: FAMOTIDINE 20 MG TAB PO SCH ×2 (08:14→21:18)
[2019-04-23] MEDS: ASPIRIN 81 MG ENTERIC TAB PO SCH (08:14)
[2019-04-23] MEDS: LACTOBACILLUS ACIDOPHILUS CAP (BACID) PO SCH ×2 (08:14→16:25)
[2019-04-23] MEDS: CARVedilol 6.25 MG TAB PO SCH ×2 (08:15→21:18)
[2019-04-23 08:40] VITALS: BP 133/66
--- NOTE | 2019-04-23 10:53 | IPNPDOC ---
Subjective Date Seen The patient was seen on 04/23/19. Subjective Chief Complaint/HPI Patient is comfortable, no distress, moving around very well and ambulating General: Denies: ROS Unobtainable, Chills, Night Sweats, Fatigue, Malaise, Normal Appetite, Other Symptoms Constitutional: Denies: Chills, Fever, Malaise, Night Sweats, Weakness, Fatigue, Weight Loss, Lethargy, Other Pulmonary: Denies: Dyspnea, Cough, Pleuritic Chest Pain, Other Symptoms Cardiovascular: Denies: Chest Pain, Palpitations, Orthopnea, Paroxysmal Noc. Dyspnea, Edema, Lt Headedness, Other Symptoms Gastrointestinal: Denies: Nausea, Vomiting, Abdominal Pain, Diarrhea, Constipation, Melena, Hematochezia, Other Symptoms Genitourinary: Denies: Dysuria, Frequency, Incontinence, Hematuria, Retention, Other Symptoms Musculoskeletal: Denies: Neck Pain, Back Pain, Shoulder Pain, Arm Pain, Hand Pain, Leg Pain, Foot Pain, Joint Pain, Muscle Pain, Spasms, Other Symptoms Neurological: Denies: Weakness, Numbness, Incoordination, Change in speech, Confusion, Seizures, Other Symptoms Psych: Denies: Mood Normal, Anxiety, Depression, Memory Issues, Thoughts of Self Harm, Anger, Thoughts of Harming Other, Other Psych Objective Physical Examination General Exam: Positive: Alert, Cooperative Neck Exam: Positive: Supple Chest Exam: Positive: Clear to auscultation, Normal air movement Heart Exam: Positive: Rate Normal, Normal S1, Normal S2 Abdomen Exam: Positive: Normal bowel sounds, Soft, Tenderness Extremity Exam: Positive: Normal pulses Skin Exam: Positive: Other skin issue (has a dry dressing on a her back wound. Also small dark lesions, which are painful to touch noted on fingers on both hands and a dry rash on her right index finger) Neuro Exam: Positive: Strength at 5/5 X4 ext, Sensation Intact Assessment /Plan Problems (1) Endocarditis Status: Acute Problem Text: Patient has a sudden appearance of painful lesions on fingers on both hands which are dark in color. Patient also had a similar lesion on her skull on admission Echocardiogram was done on 04/19/2019, which had showed: Left ventricular size upper limits of normal to mildly dilated with normal LV wall thickness. Paradoxical septal motion and apical akinesis but other oropeza appear to move normally. At least moderate impairment of global resting systolic function. Prominently dilated left atrium but unable to define LV diastolic function in the setting of mitral valve disorder/prosthetic mitral valve. Mildly dilated right ventricle with normal wall motion and Doppler evidence of severe pulmonary hypertension. At least mildly dilated right atrium and prominently dilated inferior vena cava with absent respiratory collapse in keeping with elevated central venous pressure and right heart failure. Normal appearing and functioning aortic valve. Normal aortic dimensions. Mechanical prosthetic mitral valve with appropriate valve opening. Unable to visualize any actual insufficiency. Very echogenic - could not rule out endocarditis. Normal appearing tricuspid valve with moderately severe to severe tricuspid insufficiency. Pacing lead could be visualized traversing right heart structures. No pericardial effusion. If endocarditis is seriously suspect here, a transesophageal echocardiography would be required. Patient is awaiting STEPHANIE to be done today Further management depends on the reports of STEPHANIE ID follow-up appreciated (2) Necrotizing cellulitis Status: Acute Problem Text: Status post debridement by Dr. Ferrell Discussed with Dr. Graham regarding infectious disease intervention On cefazolin as per Dr. graham Possibility can be placed on by mouth Bactrim/or rifaxin /doxycycline on discharge for chronic suppression Will start Atarax 25 mg by mouth every 6 hours when necessary for itching Wound culture shows MSSA and blood culture 1 bottle shows staph aureus which most likely is contamination Patient transferred to [facility] PICC line placed in for IV access Further, as per ID recommendations (3) Diabetes mellitus Status: Chronic Problem Text: Uncontrolled diabetes mellitus type 2 with presenting glucose of 752 pseudohyponatremia with sodium of 125 and a GI Patient's fingerstick is much better controlled now Hence, she has been started fingerstick every before meals and at bedtime with coverage Continue home medications Decrease detemir 45 units subcutaneous every 12 hours due to 2 episodes of hypoglycemia Continue monitoring fingerstick blood sugar with coverage Continue all home meds (4) Supratherapeutic INR Status: Resolved Problem Text: INR is 2.42 today Continue Coumadin as per orders To keep INR between 2.5-3.5 (5) Hypothyroid Status: Chronic Problem Text: Continue home meds Plan/VTE VTE Prophylaxis Ordered?: Yes VS, I&O, 24H, Fishbone Vital Signs/I&O Vital Signs Date Time Temp Pulse Resp B/P (MAP) Pulse Ox O2 Delivery O2 Flow Rate FiO2 04/23/19 08:15 83 126/67 04/23/19 07:00 16 Room Air 04/23/19 06:00 96.9 94 04/22/19 23:10 2.0 I&O- Last 24 Hours up to 6 AM 04/23/19 06:00 Intake Total 2850 ml Output Total 750 ml Balance 2100 ml Laboratory Data 24H LABS Laboratory Tests 2 04/22/19 11:31: Prothrombin Time 32.2H, Prothromb Time International Ratio 3.14 04/22/19 11:59: Bedside Glucose (Misc Panel) 259H 04/22/19 16:52: Bedside Glucose (Misc Panel) 159H 04/23/19 06:57: Bedside Glucose (Misc Panel) 158H Microbiology Microbiology 04/23/19 Stool Occult Blood (LENNOX) - Final, Complete 04/17/19 Blood Culture - Final, Complete NO GROWTH AFTER 5 DAYS 04/17/19 Blood Culture - Final, Complete NO GROWTH AFTER 5 DAYS 04/16/19 Blood Culture - Final, Complete NO GROWTH AFTER 5 DAYS 04/16/19 Gram Stain - Final, Complete 04/16/19 Wound Culture - Final, Complete Staphylococcus Aureus 04/15/19 Blood Culture - Final, Complete NO GROWTH AFTER 5 DAYS 04/15/19 Blood Culture - Final, Complete Staphylococcus Hominis Ssp Carlos NAVIN VILLEGAS MD Apr 23, 2019 10:53
[2019-04-23 14:00] VITALS: BP 136/70
[2019-04-23 15:33] LABS: HEMATOCRIT 28.3 % (36.0-47.0); HEMOGLOBIN 8.4 g/dl (12.0-15.5); MEAN CORPUSCULAR HEMOGLOBIN 24.9 pg (27.0-33.0); MEAN CORPUSCULAR HGB CONC 29.7 g/dl (32.0-36.5); PLATELET COUNT, AUTOMATED 318 10^3/uL (150-450); RED BLOOD COUNT 3.37 10^6/uL (4.00-5.40); WHITE BLOOD COUNT 7.8 10^3/uL (4.0-10.0)
[2019-04-23 15:44] LABS: INR 3.46; PROTHROMBIN TIME 34.8 SECONDS (11.8-14.0)
[2019-04-23] MEDS: WARFARIN SOD 5 MG TAB PO SCH (16:25)
[2019-04-23 16:47] LABS: BLOOD UREA NITROGEN 24 MG/DL (7-18); CALCIUM LEVEL 8.9 MG/DL (8.5-10.1); CARBON DIOXIDE LEVEL 25 MEQ/L (21-32); CHLORIDE LEVEL 110 MEQ/L (98-107); CREATININE FOR GFR 0.91 MG/DL (0.55-1.30); GLOMERULAR FILTRATION RATE > 60.0 (>51); GLUCOSE, FASTING 103 MG/DL (70-100); POTASSIUM SERUM 4.8 MEQ/L (3.5-5.1); SODIUM LEVEL 142 MEQ/L (136-145)
[2019-04-23] MEDS ORDERED: LIDOCAINE VISCOUS 2% SOLN 15ML UDC As Ordered ONE (18:10)
[2019-04-23] MEDS ORDERED: MIDAZOLAM INJ 2 MG/2 ML VIAL (J2250) As Ordered ONE (18:14)
[2019-04-23] MEDS ORDERED: fentaNYL 100 MCG/2 ML INJECTION (J3010) As Ordered ONE (18:14)
[2019-04-23] MEDS ORDERED: PROPOFOL 200 MG/20 ML VIAL As Ordered ONE (18:14)
[2019-04-23] MEDS ORDERED: LIDOCAINE PRES-FREE 2% 10ML AMP As Ordered ONE (18:14)
[2019-04-23] MEDS ORDERED: CETACAINE SPRAY 5GM As Ordered ONE (18:27)
[2019-04-23] MEDS: ATORVASTATIN 20 MG TAB PO SCH (21:18)
[2019-04-23 22:00] VITALS: BP 130/68
[2019-04-24] MEDS: ceFAZolin SOD 2 GM in IV 1 EA IV SCH ×3 (00:49→16:37)
[2019-04-24] MEDS: PERCOCET 5MG/325MG TAB PO PRN ×5 (01:41→21:30)
[2019-04-24] MEDS: SODIUM CHLORIDE 0.9% INJ 10 ML SYR IV SCH ×2 (05:49→18:00)
[2019-04-24] MEDS: LEVOTHYROXINE 137MCG TABLET (0.137MG) PO SCH (05:49)
[2019-04-24] MEDS: hydrOXYzine 25 MG TAB PO PRN ×3 (05:49→21:30)
[2019-04-24 06:00] VITALS: BP 119/69
[2019-04-24 06:12] LABS: BASO % 0.6 % (0.0-1.0); EOS # 0.1 10^3/uL (0.0-0.5); EOS % 1.9 % (0.0-3.0); HEMATOCRIT 27.2 % (36.0-47.0); HEMOGLOBIN 8.1 g/dl (12.0-15.5); LYMPH % 20.7 % (24.0-44.0); MEAN CORPUSCULAR HEMOGLOBIN 25.3 pg (27.0-33.0); MEAN CORPUSCULAR HGB CONC 29.8 g/dl (32.0-36.5); MONO # 0.5 10^3/uL (0.0-0.8); NEUTROPHILS % 62.3 % (36.0-66.0); PLATELET COUNT, AUTOMATED 270 10^3/uL (150-450); WHITE BLOOD COUNT 4.8 10^3/uL (4.0-10.0)
[2019-04-24 06:40] LABS: BLOOD UREA NITROGEN 20 MG/DL (7-18); CREATININE FOR GFR 0.87 MG/DL (0.55-1.30); GLUCOSE, FASTING 291 MG/DL (70-100)
[2019-04-24 06:41] LABS: ALBUMIN 2.1 GM/DL (3.2-5.2); ALT/SGPT 18 U/L (12-78); BILIRUBIN,TOTAL 0.2 MG/DL (0.2-1.0); CALCIUM LEVEL 8.6 MG/DL (8.5-10.1); CARBON DIOXIDE LEVEL 26 MEQ/L (21-32); CHLORIDE LEVEL 110 MEQ/L (98-107); GLOMERULAR FILTRATION RATE > 60.0 (>51); POTASSIUM SERUM 4.9 MEQ/L (3.5-5.1); SODIUM LEVEL 141 MEQ/L (136-145); TOTAL PROTEIN 5.6 GM/DL (6.4-8.2)
--- NOTE | 2019-04-24 06:57 | T-ECHO ---
DATE OF STUDY: 04/23/2019 REFERRING PHYSICIAN: Dr. Teofilo Flores INDICATION: Infective endocarditis, Staphylococcus hominis bacteremia PREPROCEDURE DIAGNOSIS: Infective endocarditis, Staphylococcus hominis bacteremia. POSTPROCEDURE DIAGNOSIS: No vegetations. Staphylococcus hominis bacteremia. FINDINGS: No vegetations. See additional conclusions below. PROCEDURE PERFORMED: Transesophageal echocardiogram. PROCEDURE PERFORMED BY: Royer Dominique MD [employer]CE MECHANIC: None. IV SEDATION: IV sedation as per OIL DRILLER. COMPLICATIONS: None. PROCEDURE DESCRIPTION: The patient received Cetacaine spray to the back of the pharynx. After receiving IV sedation, esophageal intubation was accomplished without difficulty using a Trimble 3-dimensional transesophageal echocardiogram probe. Rhythm appeared regular. Transgastric views were technically very difficult and were not adequate for assessment of LV systolic function or regional wall motion abnormalities of the left ventricle. The right ventricle appeared to have normal overall systolic function. Both atria appeared to be enlarged. The left atrial appendage appeared to be truncated. The atrial septum was intact anatomically and by color flow Doppler. A double tilting disk prosthesis was well seated in the mitral position with overall mild mitral regurgitation (3 valvular jets within normal limits). No mitral stenosis. Mitral leaflets appeared to be mildly thickened. No vegetations on any of the cardiac valves. Severe tricuspid regurgitation was present. Pulmonic valve appeared normal. No pulmonic regurgitation. Aortic valve was 3-cuspid with mild aortic valve sclerosis. No aortic regurgitation. No pericardial effusion. Multiple cardiac rhythm management leads were present, seen in the superior vena cava, right atrium and in the right ventricle. Distal aortic arch and descending thoracic aorta showed moderate atheroma. CONCLUSIONS: 1. No vegetations on any of the cardiac valves. 2. Well seated and normally functioning doubling tilting disk mitral prosthesis. 3. Very mild aortic valve sclerosis of a 3-cuspid aortic valve. No aortic regurgitation. 4. Dilatation of both atria. 5. Multiple cardiac rhythm management leads seen in the right atrium and right ventricle. 6. Moderate atheroma seen in the distal aortic arch and descending thoracic aorta. 7. Enlargement of both atria. 8. Technically difficult transgastric views and therefore difficult for assessment of LV regional wall motion and LV systolic function.
[2019-04-24] MEDS: LEVEMIR (INSULIN DETEMIR) 1 UNITS/0.01ML SC SCH ×2 (08:09→21:29)
[2019-04-24] MEDS: PARoxetine 10MG TABLET PO SCH (08:09)
[2019-04-24] MEDS: VARENICLINE 1 MG TABLET PO SCH ×2 (08:09→21:30)
[2019-04-24] MEDS: HumaLOG INSULIN (NovoLOG) PER UNIT SC SCH ×4 (08:09→21:28)
[2019-04-24] MEDS: FAMOTIDINE 20 MG TAB PO SCH ×2 (08:09→21:29)
[2019-04-24] MEDS: LACTOBACILLUS ACIDOPHILUS CAP (BACID) PO SCH ×2 (08:10→18:13)
[2019-04-24] MEDS: POTASSIUM CHLORIDE 10 MEQ SR TABLET PO SCH (08:10)
[2019-04-24] MEDS: ASPIRIN 81 MG ENTERIC TAB PO SCH (08:10)
[2019-04-24] MEDS: PREGABALIN 75 MG CAP(LYRICA) PO SCH ×2 (08:10→21:30)
[2019-04-24] MEDS: FUROSEMIDE 40 MG TAB PO SCH (08:12)
[2019-04-24] MEDS: CARVedilol 6.25 MG TAB PO SCH ×2 (08:12→21:31)
[2019-04-24] MEDS: HYDROCORTISONE 1% CREAM 30 GM TOP SCH ×3 (08:13→21:32)
[2019-04-24] MEDS: DIAPER RELIEF PASTE (DESITIN) 60GM TOP SCH (08:14)
--- NOTE | 2019-04-24 10:20 | IPNPDOC ---
Subjective Date Seen The patient was seen on 04/24/19. Subjective Chief Complaint/HPI Patient complaining of some pain at the back but no fever, nausea, vomiting, abdominal pain General: Denies: ROS Unobtainable, Chills, Night Sweats, Fatigue, Malaise, Normal Appetite, Other Symptoms Constitutional: Denies: Chills, Fever, Malaise, Night Sweats, Weakness, Fatigue, Weight Loss, Lethargy, Other Pulmonary: Denies: Dyspnea, Cough, Pleuritic Chest Pain, Other Symptoms Cardiovascular: Denies: Chest Pain, Palpitations, Orthopnea, Paroxysmal Noc. Dyspnea, Edema, Lt Headedness, Other Symptoms Gastrointestinal: Denies: Nausea, Vomiting, Abdominal Pain, Diarrhea, Constipation, Melena, Hematochezia, Other Symptoms Musculoskeletal: Denies: Neck Pain, Back Pain, Shoulder Pain, Arm Pain, Hand Pain, Leg Pain, Foot Pain, Joint Pain, Muscle Pain, Spasms, Other Symptoms Neurological: Denies: Weakness, Numbness, Incoordination, Change in speech, Confusion, Seizures, Other Symptoms Objective Physical Examination Neck Exam: Positive: Supple Chest Exam: Positive: Clear to auscultation, Normal air movement Heart Exam: Positive: Rate Normal, Normal S1, Normal S2 Abdomen Exam: Positive: Normal bowel sounds, Soft, Tenderness Extremity Exam: Positive: Normal pulses Skin Exam: Positive: Other skin issue (has a dry dressing on a her back wound. Also small dark lesions, which are painful to touch noted on fingers on both hands and a dry rash on her right index finger) Neuro Exam: Positive: Strength at 5/5 X4 ext, Sensation Intact Assessment /Plan Problems (1) Necrotizing cellulitis Status: Acute Problem Text: Status post debridement by Dr. Ferrell Discussed with Dr. Graham regarding infectious disease intervention On cefazolin as per Dr. graham Possibility can be placed on by mouth Bactrim/or rifaxin /doxycycline on discharge for chronic suppression Will start Atarax 25 mg by mouth every 6 hours when necessary for itching Wound culture shows MSSA and blood culture 1 bottle shows staph aureus which most likely is contamination Patient has a PICC line placed secondary to difficult IV access Endocarditis ruled out as a STEPHANIE is essentially normal Will discuss with ID today regarding whether patient requires by mouth or IV antibiotics Discharge planning discussed with case management (2) Diabetes mellitus Status: Chronic Problem Text: Uncontrolled diabetes mellitus type 2 with presenting glucose of 752 pseudohyponatremia with sodium of 125 and a GI Patient's fingerstick is much better controlled now Hence, she has been started fingerstick every before meals and at bedtime with coverage Continue home medications Decrease detemir 45 units subcutaneous every 12 hours due to 2 episodes of hypoglycemia Continue monitoring fingerstick blood sugar with coverage Continue all home meds (3) Supratherapeutic INR Status: Resolved Problem Text: Will decrease her Coumadin to 7.5 mg by mouth daily To maintain INR between 2.5-3.5 Repeat INR in a.m. (4) Hypothyroid Status: Chronic Problem Text: Continue home meds Plan/VTE VTE Prophylaxis Ordered?: Yes VS, I&O, 24H, Fishbone Vital Signs/I&O Vital Signs Date Time Temp Pulse Resp B/P (MAP) Pulse Ox O2 Delivery O2 Flow Rate FiO2 04/24/19 08:12 88 151/64 04/24/19 06:35 17 Room Air 04/24/19 06:00 97.6 98 04/22/19 23:10 2.0 I&O- Last 24 Hours up to 6 AM 04/24/19 06:00 Intake Total 1550 ml Output Total 300 ml Balance 1250 ml Laboratory Data 24H LABS Laboratory Tests 2 04/23/19 12:01: Bedside Glucose (Misc Panel) 108H 04/23/19 15:14: Nucleated Red Blood Cells % (auto) 0.6H, Prothrombin Time 34.8H, Prothromb Time International Ratio 3.46, Anion Gap 7L, Glomerular Filtration Rate > 60.0, Calcium Level 8.9 04/23/19 16:32: Bedside Glucose (Misc Panel) 97 04/23/19 19:43: Bedside Glucose (Misc Panel) 84 04/24/19 05:57: Immature Granulocyte % (Auto) 3.5H, Neutrophils (%) (Auto) 62.3, Lymphocytes (%) (Auto) 20.7L, Monocytes (%) (Auto) 11.0H, Eosinophils (%) (Auto) 1.9, Basophils (%) (Auto) 0.6, Neutrophils # (Auto) 3.0, Lymphocytes # (Auto) 1.0L, Monocytes # (Auto) 0.5, Eosinophils # (Auto) 0.1, Basophils # (Auto) 0.0, Nucleated Red Blood Cells % (auto) 0.6H, Anion Gap 5L, Glomerular Filtration Rate > 60.0, Calcium Level 8.6, Total Bilirubin 0.2, Aspartate Amino Transf (AST/SGOT) 34, Alanine Aminotransferase (ALT/SGPT) 18, Alkaline Phosphatase 537H, Total Protein 5.6L, Albumin 2.1L, Albumin/Globulin Ratio 0.60L CBC/BMP Laboratory Tests 04/23/19 15:14 04/24/19 05:57 Microbiology Microbiology 04/23/19 Stool Occult Blood (LENNOX) - Final, Complete 04/17/19 Blood Culture - Final, Complete NO GROWTH AFTER 5 DAYS 04/17/19 Blood Culture - Final, Complete NO GROWTH AFTER 5 DAYS 04/16/19 Blood Culture - Final, Complete NO GROWTH AFTER 5 DAYS 04/16/19 Gram Stain - Final, Complete 04/16/19 Wound Culture - Final, Complete Staphylococcus Aureus 04/15/19 Blood Culture - Final, Complete NO GROWTH AFTER 5 DAYS 04/15/19 Blood Culture - Final, Complete Staphylococcus Hominis Ssp Carlos NAVIN VILLEGAS MD Apr 24, 2019 10:20
[2019-04-24 14:00] VITALS: BP 120/70
[2019-04-24] MEDS: WARFARIN SOD 5 MG TAB PO SCH (16:37)
--- NOTE | 2019-04-24 17:06 | IPN ---
DATE: 04/24/2019 Jenny continues to complain of right flank pain. No fever or chills. No nausea, vomiting or diarrhea. She still has quite a bit of necrotic tissue in the abscess that was debrided by Dr. Ferrell. The area medially to where the debridement happened remains indurated and tender to touch with purulent discharge. The incision and drainage (I and D) site has slough with purplish discolored tissue that is necrotic. Labs: White count is 4.8, hemoglobin 8.1, hematocrit 27.2, platelets 270, 62% neutrophils, 20% lymphocytes, 11% monocytes. Sodium 141, potassium 4.9, chloride 110, bicarbonate 26, BUN 20, creatinine 0.87, glucose 291, calcium 8.6, AST 34, ALT 18, alkaline phosphatase 537, albumin 2.1, ESR more than 140, which had increased from 47 on 04/16/2019. CRP 6.41 down from 12. IMPRESSION: 1. Complicated skin and soft tissue abscess, methicillin-sensitive Staphylococcus aureus (MSSA) with necrotizing cellulitis with persistent abscess that needs further drainage. The patient is still on IV cefazolin. Will obtain ultrasound, and I have consulted Dr. Herman to follow up on the patient as Dr. Ferrell is not available. He recommended I obtain an ultrasound to look for how deep the abscess localizes, and I recommended that the patient needs further debridement of this deep abscess. 2. Diabetes. Better controlled, glucoses have been ranging between 84 and 322 today. 3. Mitral valve replacement with no mitral stenosis with no vegetations. On Coumadin. The patient would not be a good candidate for rifampin along with antibiotic as it would interact with Coumadin and her PT/INR wound not be able to be controlled. PLAN: Continue IV cefazolin, consult surgery again for further debridement, and as long as the patient is in the hospital, I think she would benefit from having a wound VAC instead of just having Optifoam dressings. Dr. Herman will be seeing the patient tomorrow
[2019-04-24] MEDS ORDERED: DOXYCYCLINE HYCLATE 100 MG TAB PO SCH (21:00)
[2019-04-24] MEDS: ATORVASTATIN 20 MG TAB PO SCH (21:30)
[2019-04-24 22:00] VITALS: BP 129/60
[2019-04-25] MEDS: ceFAZolin SOD 2 GM in IV 1 EA IV SCH ×3 (00:57→16:52)
[2019-04-25] MEDS: PERCOCET 5MG/325MG TAB PO PRN ×6 (01:46→22:39)
--- NOTE | 2019-04-25 01:54 | REPVR ---
PROCEDURE INFORMATION: Exam: US Abdomen Limited Exam date and time: 04/24/19 (5:31pm) Clinical history: 58 year old female. Right flank / abdominal pain. Prior surgery. Surgery date: 3-7 days post-operative. Surgery type: Incision to drain abscess at right flank (1 week ago). TECHNIQUE: Imaging protocol: Real-time ultrasound of the abdomen with image documentation. Examination is focused on the region of clinical interest. COMPARISON: US ABDOMEN (limited) of 07/12/18 FINDINGS: High-resolution sonography of the right flank area was performed in multiple projections, at the area of recent incision for drainage, and area of redness and pain. Complex hypoechoic collection (1.7 x 1.1 x 1.4 cm size) at the medial margin of the incision. Two (2) additional mobile collections are noted, lateral to the incision, which appear to connect at the lateral margin of the incision ---- Superior collection (complex) (long ovoid shape) measures 6.2 x 0.8 x 0.7 cm in size Inferior collection (also complex) measures 3.5 x 0.7 x 1.1 cm in size IMPRESSION: Complex collections are noted at the area of concern --- 1 collection is at the medial margin of a recent incision for drainage of an abscess; 2 are located lateral to the incision. The collections are complex. Diagnostic considerations include: soft tissue abscesses; phlegmons; hematomas. Electronically signed by: Miracle Sanchez On 04/25/2019 01:53:50 AM
[2019-04-25 06:00] VITALS: BP 124/57
[2019-04-25] MEDS: LEVOTHYROXINE 137MCG TABLET (0.137MG) PO SCH (06:03)
[2019-04-25] MEDS: SODIUM CHLORIDE 0.9% INJ 10 ML SYR IV SCH ×2 (06:04→16:55)
[2019-04-25] MEDS: LACTOBACILLUS ACIDOPHILUS CAP (BACID) PO SCH ×2 (08:21→16:53)
[2019-04-25] MEDS: ASPIRIN 81 MG ENTERIC TAB PO SCH (08:21)
[2019-04-25] MEDS: PARoxetine 10MG TABLET PO SCH (08:22)
[2019-04-25] MEDS: PREGABALIN 75 MG CAP(LYRICA) PO SCH ×2 (08:22→20:58)
[2019-04-25] MEDS: FUROSEMIDE 40 MG TAB PO SCH (08:22)
[2019-04-25] MEDS: VARENICLINE 1 MG TABLET PO SCH ×2 (08:22→20:59)
[2019-04-25] MEDS: FAMOTIDINE 20 MG TAB PO SCH ×2 (08:22→20:58)
[2019-04-25] MEDS: CARVedilol 6.25 MG TAB PO SCH ×2 (08:22→20:58)
[2019-04-25] MEDS: POTASSIUM CHLORIDE 10 MEQ SR TABLET PO SCH (08:23)
[2019-04-25] MEDS: LEVEMIR (INSULIN DETEMIR) 1 UNITS/0.01ML SC SCH ×2 (08:24→20:59)
[2019-04-25] MEDS: HumaLOG INSULIN (NovoLOG) PER UNIT SC SCH ×4 (08:25→20:44)
[2019-04-25] MEDS: DIAPER RELIEF PASTE (DESITIN) 60GM TOP SCH (08:30)
[2019-04-25] MEDS: HYDROCORTISONE 1% CREAM 30 GM TOP SCH ×3 (08:31→21:00)
[2019-04-25] MEDS: VANICREAM MOISTURIZING SKIN CREAM 113GM TUBE TOP SCH ×3 (09:00→21:01)
--- NOTE | 2019-04-25 11:13 | IPNPDOC ---
Subjective Date Seen The patient was seen on 04/25/19. Subjective Chief Complaint/HPI Patient is still complaining of somepain in her back. This previous I&D was performed General: Denies: ROS Unobtainable, Chills, Night Sweats, Fatigue, Malaise, Normal Appetite, Other Symptoms Constitutional: Denies: Chills, Fever, Malaise, Night Sweats, Weakness, Fatigue, Weight Loss, Lethargy, Other Skin: Reports: Other Pulmonary: Denies: Dyspnea, Cough, Pleuritic Chest Pain, Other Symptoms Cardiovascular: Denies: Chest Pain, Palpitations, Orthopnea, Paroxysmal Noc. Dyspnea, Edema, Lt Headedness, Other Symptoms Gastrointestinal: Denies: Nausea, Vomiting, Abdominal Pain, Diarrhea, Constipation, Melena, Hematochezia, Other Symptoms Musculoskeletal: Reports: Back Pain; Denies: Neck Pain, Shoulder Pain, Arm Pain, Hand Pain, Leg Pain, Foot Pain, Joint Pain, Muscle Pain, Spasms, Other Symptoms Neurological: Denies: Weakness, Numbness, Incoordination, Change in speech, Confusion, Seizures, Other Symptoms Objective Physical Examination Neck Exam: Positive: Supple Chest Exam: Positive: Clear to auscultation, Normal air movement Heart Exam: Positive: Rate Normal, Normal S1, Normal S2 Abdomen Exam: Positive: Normal bowel sounds, Soft, Tenderness Extremity Exam: Positive: Normal pulses Skin Exam: Positive: Other skin issue (has a dry dressing on a her back wound. Also small dark lesions, which are painful to touch noted on fingers on both hands and a dry rash on her right index finger) Neuro Exam: Positive: Strength at 5/5 X4 ext, Sensation Intact Assessment /Plan Problems (1) Necrotizing cellulitis Status: Acute Problem Text: Status post debridement by Dr. Ferrell On cefazolin as per Dr. rodriguez Possibility can be placed on by mouth Bactrim/or rifaxin /doxycycline on discharge for chronic suppression Will start Atarax 25 mg by mouth every 6 hours when necessary for itching Wound culture shows MSSA and blood culture 1 bottle shows staph aureus which most likely is contamination Patient has a PICC line placed secondary to difficult IV access Endocarditis ruled out as a STEPHANIE is essentially normal Discussed with today. We'll continue cefazolin and possible repeat debridement by surgery. Discussed with Dr. Herman, he will see patient for possibility of repeat debridement and placement of wound VAC while she is inpatient Continue present care (2) Diabetes mellitus Status: Chronic Problem Text: Uncontrolled diabetes mellitus type 2 with presenting glucose of 752 pseudohyponatremia with sodium of 125 and a GI Patient's fingerstick is much better controlled now Hence, she has been started fingerstick every before meals and at bedtime with coverage Continue home medications Decrease detemir 45 units subcutaneous every 12 hours due to 2 episodes of hypoglycemia Continue monitoring fingerstick blood sugar with coverage Continue all home meds (3) Supratherapeutic INR Status: Resolved Problem Text: Will decrease her Coumadin to 7.5 mg by mouth daily To maintain INR between 2.5-3.5 Repeat INR in a.m. (4) Hypothyroid Status: Chronic Problem Text: Continue home meds Plan/VTE VTE Prophylaxis Ordered?: Yes VS, I&O, 24H, Fishbone Vital Signs/I&O Vital Signs Date Time Temp Pulse Resp B/P (MAP) Pulse Ox O2 Delivery O2 Flow Rate FiO2 04/25/19 10:45 18 04/25/19 08:22 59 124/57 04/25/19 06:35 Room Air 04/25/19 06:00 97.0 95 04/22/19 23:10 2.0 I&O- Last 24 Hours up to 6 AM 04/25/19 05:59 Intake Total 3950 ml Output Total 950 ml Balance 3000 ml Laboratory Data 24H LABS Laboratory Tests 2 04/24/19 12:13: Bedside Glucose (Misc Panel) 322H 04/24/19 18:07: Bedside Glucose (Misc Panel) 284H 04/24/19 20:36: Bedside Glucose (Misc Panel) 255H 04/25/19 07:39: Bedside Glucose (Misc Panel) 280H Microbiology Microbiology 04/23/19 Stool Occult Blood (LENNOX) - Final, Complete 04/17/19 Blood Culture - Final, Complete NO GROWTH AFTER 5 DAYS 04/17/19 Blood Culture - Final, Complete NO GROWTH AFTER 5 DAYS 04/16/19 Blood Culture - Final, Complete NO GROWTH AFTER 5 DAYS 04/16/19 Gram Stain - Final, Complete 04/16/19 Wound Culture - Final, Complete Staphylococcus Aureus 04/15/19 Blood Culture - Final, Complete NO GROWTH AFTER 5 DAYS 04/15/19 Blood Culture - Final, Complete Staphylococcus Hominis Ssp Carlos NAVIN VILLEGAS MD Apr 25, 2019 11:13
[2019-04-25 14:00] VITALS: BP 148/64
[2019-04-25] MEDS: hydrOXYzine 25 MG TAB PO PRN ×2 (14:16→20:58)
--- NOTE | 2019-04-25 14:57 | IPN ---
DATE: 04/25/2019 SUBJECTIVE: Patient was seen and examined this morning. She currently continues to have right-sided flank pain. She denies any fevers or chills. She denies any nausea, vomiting or diarrhea. She continues to have necrotic tissue and abscesses present on her back. Additionally, the patient complains of tenderness to her fingertips as well as areas of ulcerations and cuts. She had received an abdominal ultrasound yesterday due to her right flank pain which demonstrated complex collections at the medial margin of the area of her recent incision and drainage for her abscess and her collections were complex. The patient is currently awaiting incision and drainage. She has been seen by general surgery. Plan is to have the patient become nothing by mouth tonight with a possible surgery tomorrow. OBJECTIVE: VITAL SIGNS: Temperature 97.0, pulse 59, respiratory rate 20, blood pressure 124/57, pulse oximetry 95% in room air. GENERAL: Patient is awake, alert, and oriented. She is lying in bed. She does not appear in any acute distress. HEENT: Atraumatic, normocephalic. Her eyes are not icteric. Her trachea is midline. Mucous membranes are pink and moist. CARDIAC: The patient has an automatic implantable cardioverter defibrillator (AICD) in place. She is normal S1, S2. Regular rate and rhythm. No clicks, rubs or murmurs. PULMONARY: Clear vesicular breath sounds bilaterally with good respiratory effort. No wheezes, rhonchi or rales. ABDOMEN: The patient is morbidly obese. She has multiple areas of scarring on her anterior abdomen. She has a scar from her appendectomy as well as from her mitral valve surgery in her midline chest. She has normoactive bowel sounds. There is no tenderness to palpation. There was no palpable masses. SKIN EXAM: Patient has multiple necrotizing abscesses on her back measuring approximately 13 cm. The patient's lesions are currently covered in a dressing. EXTREMITIES: Patient has no edema in bilateral lower extremities. She has full and equal pulses in bilateral upper and lower extremities. She does have areas of ulceration and cuts on the tips of her fingers and her fingers are also tendon to palpation. She did not have any pain on movement of her fingers or pain in her joints. PSYCH: Patient's mood and affect appear appropriate for situation. LABORATORY DATA: Hematology: White blood cell 4.8, hemoglobin 8.1, hematocrit 27.2, platelet count 270. Chemistry: Sodium 141, potassium 4.9, chloride 110, CO2 26, BUN 20, creatinine 0.87, fasting glucose 291. Alkaline phosphatase 537. IMAGING: Abdominal ultrasound on 04/24/2019 demonstrates complex collections and complex hyperechoic collection 1.7 x 1.1 x 1.4 cm at the medial margin of the patient's incision and two additional mobile collections lateral to the incision, which appear to connect to the lateral margin of the incisions and a superior collection measuring 6.2 x 0.8 x 0.7 cm in size and an inferior collection measuring 3.5 x 0.7 x 1.1 cm in size. IMPRESSION: 1. Complicated skin and soft tissue abscess with methicillin sensitive Staphylococcus aureus and necrotizing cellulitis with persistent abscess: The patient has a history of recurrent necrotizing cellulitis and complicated soft tissue infections/abscesses with methicillin sensitive Staphylococcus aureus that have required incision and drainage. The patient is currently on IV cefazolin and will be continued on this. Plans for further debridement tomorrow morning. Regarding the patient's recurrent infections, she will likely need further evaluation as to the reasoning as to why she continues to have recurrent abscess formations. 2. Diabetes mellitus type 2: The patient has diabetes mellitus, with a hemoglobin A1c of 14. Her blood sugars have been better in control since being hospitalized. Will continue to monitor. 3. Mitral valve replacement, new vegetation: Patient is currently on Coumadin. Given her mitral valve replacement, she is at risk for endocarditis with vegetation formation if her blood is seeded. Therefore, patient will likely benefit from decolonization and elucidation as to why she has recurrent Staphylococus abscesses. PLAN: Patient will be continued on IV cefazolin. She is planned to be seen by surgery tomorrow for further debridement. She is to be nothing by mouth at midnight tonight. Regarding the patient's care home recovery, she will likely benefit from a wound VAC. There has been question as to the patient's compliance as well as if she is able to get home healthcare. This will need to be arranged before her discharge. JAD
[2019-04-25] MEDS: WARFARIN SOD 5 MG TAB PO SCH (16:53)
--- NOTE | 2019-04-25 20:30 | IPN ---
DATE: 04/25/2019 Dr. Ferrell is out of town at this time and I was asked by infectious disease to take another look at Mrs. Oneil who has had an open wound that was debrided a while back. She still continues with a normal white count, however, she has developed a necrotic wound with wound edges that have not been debrided. She has had an ultrasound last night that shows some fluid collections next to the area and shows some mild skin necrosis in this area. She has still some tenderness around the incision with some necrotic skin edges without any purulent drainage. IMPRESSION AND PLAN The patient has evidence of necrotic skin at this point. I have discussed the wound with Dr. Fofana who will be covering this weekend. He is considering proceeding with debridement of this and will discuss operative intervention with the patient further.
[2019-04-25] MEDS: ATORVASTATIN 20 MG TAB PO SCH (20:58)
[2019-04-25 22:00] VITALS: BP 146/65
[2019-04-26] MEDS: ceFAZolin SOD 2 GM in IV 1 EA IV SCH ×3 (01:10→17:51)
[2019-04-26] MEDS: PERCOCET 5MG/325MG TAB PO PRN ×5 (03:01→22:31)
[2019-04-26] MEDS: hydrOXYzine 25 MG TAB PO PRN ×3 (03:02→17:51)
[2019-04-26] MEDS: LEVOTHYROXINE 137MCG TABLET (0.137MG) PO SCH (05:38)
[2019-04-26] MEDS: SODIUM CHLORIDE 0.9% INJ 10 ML SYR IV SCH ×2 (05:39→17:51)
[2019-04-26 06:00] VITALS: BP 143/83
[2019-04-26 07:59] LABS: INR 3.84; PROTHROMBIN TIME 37.8 SECONDS (11.8-14.0)
[2019-04-26] MEDS: HumaLOG INSULIN (NovoLOG) PER UNIT SC SCH ×4 (08:23→21:00)
[2019-04-26] MEDS: LACTOBACILLUS ACIDOPHILUS CAP (BACID) PO SCH ×2 (08:23→17:50)
[2019-04-26] MEDS: VARENICLINE 1 MG TABLET PO SCH ×2 (08:23→21:07)
[2019-04-26] MEDS: ASPIRIN 81 MG ENTERIC TAB PO SCH (08:23)
[2019-04-26] MEDS: FUROSEMIDE 40 MG TAB PO SCH (08:24)
[2019-04-26] MEDS: FAMOTIDINE 20 MG TAB PO SCH ×2 (08:24→21:07)
[2019-04-26] MEDS: PARoxetine 10MG TABLET PO SCH (08:24)
[2019-04-26] MEDS: PREGABALIN 75 MG CAP(LYRICA) PO SCH ×2 (08:24→21:07)
[2019-04-26] MEDS: CARVedilol 6.25 MG TAB PO SCH ×2 (08:24→21:08)
[2019-04-26] MEDS: POTASSIUM CHLORIDE 10 MEQ SR TABLET PO SCH (08:25)
[2019-04-26] MEDS: LEVEMIR (INSULIN DETEMIR) 1 UNITS/0.01ML SC SCH ×2 (08:27→21:00)
[2019-04-26] MEDS: DIAPER RELIEF PASTE (DESITIN) 60GM TOP SCH (08:28)
[2019-04-26] MEDS: HYDROCORTISONE 1% CREAM 30 GM TOP SCH (08:29)
[2019-04-26] MEDS: VANICREAM MOISTURIZING SKIN CREAM 113GM TUBE TOP SCH ×3 (08:29→21:09)
--- NOTE | 2019-04-26 09:59 | IPNPDOC ---
Subjective Date Seen The patient was seen on 04/26/19. Subjective Chief Complaint/HPI Complaining of pain in the back wound, but no other new complaints. No fever General: Denies: ROS Unobtainable, Chills, Night Sweats, Fatigue, Malaise, Normal Appetite, Other Symptoms Constitutional: Denies: Chills, Fever, Malaise, Night Sweats, Weakness, Fatigue, Weight Loss, Lethargy, Other Pulmonary: Denies: Dyspnea, Cough, Pleuritic Chest Pain, Other Symptoms Cardiovascular: Denies: Chest Pain, Palpitations, Orthopnea, Paroxysmal Noc. Dyspnea, Edema, Lt Headedness, Other Symptoms Gastrointestinal: Denies: Nausea, Vomiting, Abdominal Pain, Diarrhea, Constipation, Melena, Hematochezia, Other Symptoms Musculoskeletal: Reports: Back Pain Neurological: Denies: Weakness, Numbness, Incoordination, Change in speech, Confusion, Seizures, Other Symptoms Psych: Denies: Mood Normal, Anxiety, Depression, Memory Issues, Thoughts of Self Harm, Anger, Thoughts of Harming Other, Other Psych Objective Physical Examination Neck Exam: Positive: Supple Chest Exam: Positive: Clear to auscultation, Normal air movement Heart Exam: Positive: Rate Normal, Normal S1, Normal S2 Abdomen Exam: Positive: Normal bowel sounds, Soft, Tenderness Extremity Exam: Positive: Normal pulses Skin Exam: Positive: Other skin issue (has a dry dressing on a her back wound. Also small dark lesions, which are painful to touch noted on fingers on both hands and a dry rash on her right index finger) Neuro Exam: Positive: Strength at 5/5 X4 ext, Sensation Intact Assessment /Plan Problems (1) Necrotizing cellulitis Status: Acute Problem Text: Status post debridement by Dr. Ferrell On cefazolin as per Dr. rodriguez Possibility can be placed on by mouth Bactrim/or rifaxin /doxycycline on discharge for chronic suppression Will start Atarax 25 mg by mouth every 6 hours when necessary for itching Wound culture shows MSSA and blood culture 1 bottle shows staph aureus which most likely is contamination Patient has a PICC line placed secondary to difficult IV access Endocarditis ruled out as a STEPHANIE is essentially normal Continue cefazolin Possible repeat debridement surgery Continue present care (2) Diabetes mellitus Status: Chronic Problem Text: Uncontrolled diabetes mellitus type 2 with presenting glucose of 752 pseudohyponatremia with sodium of 125 and a GI Patient's fingerstick is much better controlled now Hence, she has been started fingerstick every before meals and at bedtime with coverage Continue home medications Decrease detemir 45 units subcutaneous every 12 hours due to 2 episodes of hypoglycemia Continue monitoring fingerstick blood sugar with coverage Continue all home meds (3) Supratherapeutic INR Status: Resolved Problem Text: Will decrease her Coumadin to 7.5 mg by mouth daily To maintain INR between 2.5-3.5 Repeat INR in a.m. (4) Hypothyroid Status: Chronic Problem Text: Continue home meds Plan/VTE VTE Prophylaxis Ordered?: Yes VS, I&O, 24H, Fishbone Vital Signs/I&O Vital Signs Date Time Temp Pulse Resp B/P (MAP) Pulse Ox O2 Delivery O2 Flow Rate FiO2 04/26/19 08:56 17 04/26/19 08:24 77 143/83 04/26/19 06:00 97.9 97 Room Air 04/22/19 23:10 2.0 I&O- Last 24 Hours up to 6 AM 04/26/19 06:00 Intake Total 1955 ml Output Total 2450 ml Balance -495 ml Laboratory Data 24H LABS Laboratory Tests 2 04/25/19 12:05: Bedside Glucose (Misc Panel) 220H 04/25/19 16:47: Bedside Glucose (Misc Panel) 100 04/25/19 20:16: Bedside Glucose (Misc Panel) 198H 04/26/19 05:28: Bedside Glucose (Misc Panel) 286H 04/26/19 07:27: Prothrombin Time 37.8H, Prothromb Time International Ratio 3.84 Microbiology Microbiology 04/23/19 Stool Occult Blood (LENNOX) - Final, Complete 04/17/19 Blood Culture - Final, Complete NO GROWTH AFTER 5 DAYS 04/17/19 Blood Culture - Final, Complete NO GROWTH AFTER 5 DAYS 04/16/19 Blood Culture - Final, Complete NO GROWTH AFTER 5 DAYS 04/16/19 Gram Stain - Final, Complete 04/16/19 Wound Culture - Final, Complete Staphylococcus Aureus NAVIN VLILEGAS MD Apr 26, 2019 09:59
[2019-04-26 14:00] VITALS: BP 103/61
[2019-04-26] MEDS: ATORVASTATIN 20 MG TAB PO SCH (21:07)
[2019-04-26 22:00] VITALS: BP 140/78
[2019-04-27] MEDS: hydrOXYzine 25 MG TAB PO PRN ×4 (00:04→23:28)
[2019-04-27] MEDS: ceFAZolin SOD 2 GM in IV 1 EA IV SCH ×3 (01:05→16:50)
[2019-04-27] MEDS: PERCOCET 5MG/325MG TAB PO PRN ×4 (02:52→20:39)
[2019-04-27] MEDS: LEVOTHYROXINE 137MCG TABLET (0.137MG) PO SCH (05:46)
[2019-04-27] MEDS: SODIUM CHLORIDE 0.9% INJ 10 ML SYR IV SCH ×2 (05:50→16:51)
[2019-04-27 06:00] VITALS: BP 122/70
[2019-04-27 07:19] LABS: BASO # 0.1 10^3/uL (0.0-0.2); BASO % 1.3 % (0.0-1.0); EOS # 0.1 10^3/uL (0.0-0.5); EOS % 2.7 % (0.0-3.0); HEMATOCRIT 25.5 % (36.0-47.0); HEMOGLOBIN 7.5 g/dl (12.0-15.5); LYMPH # 1.1 10^3/uL (1.5-5.0); LYMPH % 28.6 % (24.0-44.0); MEAN CORPUSCULAR HEMOGLOBIN 25.3 pg (27.0-33.0); MEAN CORPUSCULAR HGB CONC 29.4 g/dl (32.0-36.5); MEAN CORPUSCULAR VOLUME 85.9 fl (80.0-96.0); MONO # 0.5 10^3/uL (0.0-0.8); MONO % 13.1 % (0.0-5.0); PLATELET COUNT, AUTOMATED 267 10^3/uL (150-450); RED BLOOD COUNT 2.97 10^6/uL (4.00-5.40); WHITE BLOOD COUNT 3.7 10^3/uL (4.0-10.0)
[2019-04-27 07:43] LABS: ALBUMIN 2.1 GM/DL (3.2-5.2); BILIRUBIN,TOTAL 0.2 MG/DL (0.2-1.0); CALCIUM LEVEL 8.1 MG/DL (8.5-10.1); CREATININE FOR GFR 1.02 MG/DL (0.55-1.30); GLOMERULAR FILTRATION RATE 59.7 (>51); POTASSIUM SERUM 4.8 MEQ/L (3.5-5.1); TOTAL PROTEIN 5.4 GM/DL (6.4-8.2)
[2019-04-27 07:48] LABS: INR 3.73
[2019-04-27] MEDS: LEVEMIR (INSULIN DETEMIR) 1 UNITS/0.01ML SC SCH ×2 (08:47→20:38)
[2019-04-27] MEDS: HumaLOG INSULIN (NovoLOG) PER UNIT SC SCH ×4 (08:48→21:00)
[2019-04-27] MEDS: CARVedilol 6.25 MG TAB PO SCH ×2 (08:49→20:40)
[2019-04-27] MEDS: FAMOTIDINE 20 MG TAB PO SCH ×2 (08:49→20:38)
[2019-04-27] MEDS: PREGABALIN 75 MG CAP(LYRICA) PO SCH ×2 (08:49→20:38)
[2019-04-27] MEDS: FUROSEMIDE 40 MG TAB PO SCH (08:49)
[2019-04-27] MEDS: LACTOBACILLUS ACIDOPHILUS CAP (BACID) PO SCH ×2 (08:49→16:50)
[2019-04-27] MEDS: ASPIRIN 81 MG ENTERIC TAB PO SCH (08:49)
[2019-04-27] MEDS: VARENICLINE 1 MG TABLET PO SCH ×2 (08:49→20:38)
[2019-04-27] MEDS: POTASSIUM CHLORIDE 10 MEQ SR TABLET PO SCH (08:49)
[2019-04-27] MEDS: DIAPER RELIEF PASTE (DESITIN) 60GM TOP SCH (08:50)
[2019-04-27] MEDS: PARoxetine 10MG TABLET PO SCH (08:50)
[2019-04-27] MEDS: VANICREAM MOISTURIZING SKIN CREAM 113GM TUBE TOP SCH ×3 (08:51→21:52)
--- NOTE | 2019-04-27 09:34 | IPNPDOC ---
Subjective Date Seen The patient was seen on 04/27/19. Subjective Chief Complaint/HPI Patient was nothing by mouth last night but her INR is still high, hence the surgery has been canceled again and hopefully she'll be scheduled tomorrow. Patient offers no new complaints at the present time except pain in her wound and her back General: Denies: ROS Unobtainable, Chills, Night Sweats, Fatigue, Malaise, Nor mal Appetite, Other Symptoms Constitutional: Denies: Chills, Fever, Malaise, Night Sweats, Weakness, Fatigue, Weight Loss, Lethargy, Other Pulmonary: Denies: Dyspnea, Cough, Pleuritic Chest Pain, Other Symptoms Cardiovascular: Denies: Chest Pain, Palpitations, Orthopnea, Paroxysmal Noc. Dyspnea, Edema, Lt Headedness, Other Symptoms Gastrointestinal: Denies: Nausea, Vomiting, Abdominal Pain, Diarrhea, Constipa tion, Melena, Hematochezia, Other Symptoms Musculoskeletal: Reports: Back Pain; Denies: Neck Pain, Shoulder Pain, Arm Pain, Hand Pain, Leg Pain, Foot Pain, Joint Pain, Muscle Pain, Spasms, Other Symptoms Neurological: Denies: Weakness, Numbness, Incoordination, Change in speech, Confusion, Seizures, Other Symptoms Objective Physical Examination Neck Exam: Positive: Supple Chest Exam: Positive: Clear to auscultation, Normal air movement Heart Exam: Positive: Rate Normal, Normal S1, Normal S2 Abdomen Exam: Positive: Normal bowel sounds, Soft, Tenderness Extremity Exam: Positive: Normal pulses Skin Exam: Positive: Other skin issue (has a dry dressing on a her back wound. Also small dark lesions, which are painful to touch noted on fingers on both hands and a dry rash on her right index finger) Neuro Exam: Positive: Strength at 5/5 X4 ext, Sensation Intact Assessment /Plan Problems (1) Necrotizing cellulitis Status: Acute Problem Text: Status post debridement by Dr. Ferrell On cefazolin as per Dr. rodriguez Possibility can be placed on by mouth Bactrim/or rifaxin /doxycycline on discharge for chronic suppression Will start Atarax 25 mg by mouth every 6 hours when necessary for itching Wound culture shows MSSA and blood culture 1 bottle shows staph aureus which most likely is contamination Patient has a PICC line placed secondary to difficult IV access Endocarditis ruled out as a STEPHANIE is essentially normal Continue cefazolin Patient was scheduled for repeat debridement today by surgery, but was canceled as her INR is still 3.73 Patient will be nothing by mouth again from Dr. Sotomayor and hopefully she'll had a procedure done tomorrow Continue current management and care (2) Diabetes mellitus Status: Chronic Problem Text: Uncontrolled diabetes mellitus type 2 with presenting glucose of 752 pseudohyponatremia with sodium of 125 and a GI Patient's fingerstick is much better controlled now Hence, she has been started fingerstick every before meals and at bedtime with coverage Continue home medications Decrease detemir 45 units subcutaneous every 12 hours due to 2 episodes of hypoglycemia Continue monitoring fingerstick blood sugar with coverage Continue all home meds (3) Supratherapeutic INR Status: Resolved Problem Text: Will decrease her Coumadin to 7.5 mg by mouth daily Coumadin on hold secondary to possible debridement in a.m. INR is still 3.73 Will restart Coumadin once procedure is done (4) Hypothyroid Status: Chronic Problem Text: Continue home meds Plan/VTE VTE Prophylaxis Ordered?: Yes VS, I&O, 24H, [facility] Vital Signs/I&O Vital Signs Date Time Temp Pulse Resp B/P (MAP) Pulse Ox O2 Delivery O2 Flow Rate FiO2 04/27/19 08:49 122/70 04/27/19 08:48 18 Room Air 04/27/19 06:00 97.0 77 93 04/22/19 23:10 2.0 I&O- Last 24 Hours up to 6 AM 04/27/19 06:00 Intake Total 1235 ml Output Total 500 ml Balance 735 ml Laboratory Data 24H LABS Laboratory Tests 2 04/26/19 11:32: Bedside Glucose (Misc Panel) 170H 04/26/19 16:28: Bedside Glucose (Misc Panel) 91 04/26/19 20:50: Bedside Glucose (Misc Panel) 151H 04/27/19 06:27: Bedside Glucose (Misc Panel) 229H 04/27/19 06:59: Immature Granulocyte % (Auto) 1.3, Neutrophils (%) (Auto) 53.0, Lymphocytes (%) (Auto) 28.6, Monocytes (%) (Auto) 13.1H, Eosinophils (%) (Auto) 2.7, Basophils ( %) (Auto) 1.3H, Neutrophils # (Auto) 2.0, Lymphocytes # (Auto) 1.1L, Monocytes # (Auto) 0.5, Eosinophils # (Auto) 0.1, Basophils # (Auto) 0.1, Nucleated Red Blood Cells % (auto) 0.5H 04/27/19 07:01: Anion Gap 6L, Glomerular Filtration Rate 59.7, Calcium Level 8.1L, Total Biliru bin 0.2, Aspartate Amino Transf (AST/SGOT) 10, Alanine Aminotransferase (ALT/SGPT) 9L, Alkaline Phosphatase 361H, Total Protein 5.4L, Albumin 2.1L, Albumin/Globulin Ratio 0.64L 04/27/19 07:22: Prothrombin Time 37.0H, Prothromb Time International Ratio 3.73 CBC/BMP Laboratory Tests 04/27/19 06:59 04/27/19 07:01 Microbiology Microbiology 04/23/19 Stool Occult Blood (LENNOX) - Final, Complete 04/17/19 Blood Culture - Final, Complete NO GROWTH AFTER 5 DAYS 04/17/19 Blood Culture - Final, Complete NO GROWTH AFTER 5 DAYS NAVIN VILLEGAS MD Apr 27, 2019 09:34
--- NOTE | 2019-04-27 11:29 | IPNPDOC ---
Text Note Date of Service The patient was seen on 04/27/19. NOTE Patient needs debridements for her back wound but her INR remains to be markedly elevated at 3.7. Last intake of Coumadin was Sunday. I will speak to Dr. Ferrell we will reschedule this for tomorrow. I will recheck her INR in the morning. VS,Fishbone, I+O VS, Fishbone, I+O Laboratory Tests 04/27/19 06:59 04/27/19 07:01 Vital Signs Date Time Temp Pulse Resp B/P (MAP) Pulse Ox O2 Delivery O2 Flow Rate FiO2 04/27/19 09:18 18 Room Air 04/27/19 08:49 122/70 04/27/19 06:00 97.0 77 93 04/22/19 23:10 2.0 I&O- Last 24 Hours up to 6 AM 04/27/19 05:59 Intake Total 1235 ml Output Total 1100 ml Balance 135 ml GERSON SAHNI MD Apr 27, 2019 11:29
[2019-04-27 14:00] VITALS: BP 141/62
[2019-04-27] MEDS: ATORVASTATIN 20 MG TAB PO SCH (20:38)
[2019-04-27 22:00] VITALS: BP 111/59
[2019-04-28] VITALS (8 sets, daily range): BP systolic 108–127; BP diastolic 54–67
[2019-04-28] MEDS: ceFAZolin SOD 2 GM in IV 1 EA IV SCH ×3 (00:14→16:58)
[2019-04-28] MEDS: PERCOCET 5MG/325MG TAB PO PRN ×5 (01:32→22:33)
[2019-04-28 05:57] LABS: EOS # 0.1 10^3/uL (0.0-0.5); EOS % 2.2 % (0.0-3.0); HEMATOCRIT 25.6 % (36.0-47.0); HEMOGLOBIN 7.5 g/dl (12.0-15.5); LYMPH # 1.1 10^3/uL (1.5-5.0); LYMPH % 26.5 % (24.0-44.0); MEAN CORPUSCULAR HEMOGLOBIN 24.9 pg (27.0-33.0); MEAN CORPUSCULAR HGB CONC 29.3 g/dl (32.0-36.5); MONO # 0.5 10^3/uL (0.0-0.8); MONO % 10.9 % (0.0-5.0); NEUTROPHILS # 2.4 10^3/uL (1.5-8.5); NEUTROPHILS % 58.7 % (36.0-66.0); PLATELET COUNT, AUTOMATED 262 10^3/uL (150-450); RED BLOOD COUNT 3.01 10^6/uL (4.00-5.40); WHITE BLOOD COUNT 4.1 10^3/uL (4.0-10.0)
[2019-04-28] MEDS: LEVOTHYROXINE 137MCG TABLET (0.137MG) PO SCH (05:58)
[2019-04-28 06:18] LABS: INR 2.75; PROTHROMBIN TIME 28.9 SECONDS (11.8-14.0)
[2019-04-28] MEDS: SODIUM CHLORIDE 0.9% INJ 10 ML SYR IV SCH ×2 (06:21→17:00)
[2019-04-28 06:26] LABS: ALBUMIN 2.2 GM/DL (3.2-5.2); BILIRUBIN,TOTAL 0.3 MG/DL (0.2-1.0); CALCIUM LEVEL 8.2 MG/DL (8.5-10.1); CREATININE FOR GFR 1.13 MG/DL (0.55-1.30); POTASSIUM SERUM 4.7 MEQ/L (3.5-5.1); TOTAL PROTEIN 6.3 GM/DL (6.4-8.2)
[2019-04-28] MEDS: HumaLOG INSULIN (NovoLOG) PER UNIT SC SCH ×4 (07:30→20:29)
[2019-04-28] MEDS ORDERED: BUPIVACAINE/EPIN 0.25% 30 ML VIAL As Ordered ONE (07:36)
[2019-04-28] MEDS ORDERED: ceFAZolin 2 GM/D5W 50 ML IV BAG (J0690 PER 500MG) As Ordered ONE (07:38)
--- NOTE | 2019-04-28 07:39 | IPNPDOC ---
Text Note Date of Service The patient was seen on 04/28/19. NOTE No acute events over the weekend. She needs another I+D, but we were waiting for her INR to come down. VSSAF NAD skin - some necrotic skin around the edges of her wound labs - below A) 58y/o female with large back ulcer s/p debridement with continued wound necrosis P) NPO OR for debridement consent is signed. Angelo Ferrell DO VS,Figueroa, I+O VS, Figueroa, I+O Laboratory Tests 04/28/19 05:40 Vital Signs Date Time Temp Pulse Resp B/P (MAP) Pulse Ox O2 Delivery O2 Flow Rate FiO2 04/28/19 06:04 16 04/28/19 06:00 97.4 80 112/54 (73) 97 Room Air 04/22/19 23:10 2.0 I&O- Last 24 Hours up to 6 AM 04/28/19 06:00 Intake Total 2160 ml Output Total 0 ml Balance 2160 ml SHILPA FERRELL DO Apr 28, 2019 07:39
[2019-04-28] MEDS ORDERED: HumaLOG INSULIN (NovoLOG) PER UNIT As Ordered ONE ×2 (08:03→08:40)
[2019-04-28] MEDS ORDERED: KETAMINE HCL 200 MG/20 ML VIAL As Ordered ONE (08:06)
[2019-04-28] MEDS ORDERED: LIDOCAINE 2% INJ 100 MG/5 ML SDV (FOR ANES.) As Ordered ONE (08:06)
[2019-04-28] MEDS ORDERED: ONDANSETRON 4MG/2ML VIAL (J2405) As Ordered ONE (08:06)
[2019-04-28] MEDS ORDERED: fentaNYL 250 MCG/5 ML INJECTION (J3010) As Ordered ONE (08:06)
[2019-04-28] MEDS ORDERED: MIDAZOLAM INJ 2 MG/2 ML VIAL (J2250) As Ordered ONE (08:06)
[2019-04-28] MEDS ORDERED: PROPOFOL 200 MG/20 ML VIAL As Ordered ONE (08:07)
[2019-04-28] MEDS ORDERED: HumuLIN R (REGULAR) INSULIN (NovoLIN R) **100U/ML** PER UNIT SC ONE (09:00)
[2019-04-28] MEDS ORDERED: LR 1,000 ML IV SCH (09:00)
[2019-04-28] MEDS ORDERED: ONDANSETRON 4MG/2ML VIAL (J2405) IV PRN (09:00)
[2019-04-28] MEDS ORDERED: fentaNYL 100 MCG/2 ML INJECTION (J3010) As Ordered ONE (09:05)
[2019-04-28] MEDS ORDERED: PERCOCET 5MG/325MG TAB As Ordered ONE (09:05)
[2019-04-28] MEDS: fentaNYL 100 MCG/2 ML INJECTION (J3010) IV PRN ×3 (09:08→09:18)
[2019-04-28] MEDS ORDERED: PERCOCET 5MG/325MG TAB PO PRN (09:15)
--- NOTE | 2019-04-28 09:26 | RO ---
DATE OF PROCEDURE: PREOPERATIVE DIAGNOSIS: Back abscess. POSTOPERATIVE DIAGNOSIS: Back abscess. PROCEDURE: Incision and drainage of back abscess with sharp excisional debridement of skin, subcutaneous tissue muscle and fascia of large back wound. SURGEON: Dr. Ferrell MEDICAL CSR: None. ANESTHESIA: IV sedation with a 20 mL of 1% lidocaine with epi local. COMPLICATIONS: None. ESTIMATED BLOOD LOSS: 10. INDICATIONS FOR PROCEDURE: The patient 58-year-old female with a large complicated back wound that is continuing to drain some purulent fluid around the edges. The edges are still slightly necrotic. The recommendation was to proceed with debridement in the operating room. Risks and benefits of procedure not limited but including bleeding, infection, damage to surrounding structures, need for further surgery were discussed in detail with the patient, informed consent was obtained, procedure was planned. PROCEDURE: The patient brought back to operating room 1. After sufficient sedation, she was placed in left lateral decubitus position. The neck and back was sterilely prepped and draped with Betadine. Following that, local was injected into the skin surrounding the entire wound. Next, a 15 blade scalpel was used to sharply debride all the edges around the periphery of the wound. On the right lateral side there was some tunneling about 6 cm in two separate tracts from the edge of the main wound itself, both of which had some necrotic skin above them deep inside the tract. I removed the window of skin over top of them but it showed a lot of necrotic tissue deep, therefore I cut out a wedge of skin, and subcutaneous tissue to open up the tract laterally, about 3 cm wide x 5 cm in length. After doing so, the entire wound was opened. There was no more tunneling other than maybe a centimeter at most around the edges. Once that was completed, I sharply debrided all of the easily necrotic tissue and then used a large curette to curette the rest of the wound bed including muscle and fascia. After doing so, the wound bed was slightly oozing. No large active bleeds, nothing that required cauterization. The wound was irrigated with saline, a little bit more curetting was then performed followed by cleaning of the wound, dry packing with 4x4 and then covered with Tegaderm, thus ending procedure. The patient tolerated the procedure well and was sent back to recovery room in stable condition. Dictation MTDD
[2019-04-28] MEDS: hydrOXYzine 25 MG TAB PO PRN ×3 (09:57→23:07)
[2019-04-28] MEDS: PREGABALIN 75 MG CAP(LYRICA) PO SCH ×2 (09:57→21:47)
[2019-04-28] MEDS: LEVEMIR (INSULIN DETEMIR) 1 UNITS/0.01ML SC SCH ×2 (09:57→20:30)
[2019-04-28] MEDS: POTASSIUM CHLORIDE 10 MEQ SR TABLET PO SCH (09:57)
[2019-04-28] MEDS: FAMOTIDINE 20 MG TAB PO SCH ×2 (09:57→21:47)
[2019-04-28] MEDS: VARENICLINE 1 MG TABLET PO SCH ×2 (09:57→21:46)
[2019-04-28] MEDS: LACTOBACILLUS ACIDOPHILUS CAP (BACID) PO SCH ×2 (09:57→16:59)
[2019-04-28] MEDS: ASPIRIN 81 MG ENTERIC TAB PO SCH (09:58)
[2019-04-28] MEDS: CARVedilol 6.25 MG TAB PO SCH ×2 (09:58→21:46)
[2019-04-28] MEDS: FUROSEMIDE 40 MG TAB PO SCH (09:58)
[2019-04-28] MEDS: PARoxetine 10MG TABLET PO SCH (09:58)
[2019-04-28] MEDS: DIAPER RELIEF PASTE (DESITIN) 60GM TOP SCH (09:59)
[2019-04-28] MEDS: VANICREAM MOISTURIZING SKIN CREAM 113GM TUBE TOP SCH ×3 (10:00→21:47)
--- NOTE | 2019-04-28 11:42 | IPNPDOC ---
Subjective Date Seen The patient was seen on 04/28/19. Subjective Chief Complaint/HPI Patient is stable. Offers no new complaint is scheduled to go to or for re- debridement General: Denies: ROS Unobtainable, Chills, Night Sweats, Fatigue, Malaise, Normal Appetite, Other Symptoms Constitutional: Denies: Chills, Fever, Malaise, Night Sweats, Weakness, Fatigue, Weight Loss, Lethargy, Other Pulmonary: Denies: Dyspnea, Cough, Pleuritic Chest Pain, Other Symptoms Cardiovascular: Denies: Chest Pain, Palpitations, Orthopnea, Paroxysmal Noc. Dyspnea, Edema, Lt Headedness, Other Symptoms Gastrointestinal: Denies: Nausea, Vomiting, Abdominal Pain, Diarrhea, Constipation, Melena, Hematochezia, Other Symptoms Endocrine: Denies: Polydipsia, Polyphagia, Polyuria, Heat Intolerance, Cold Intolerance, Other Endocrine Sx Musculoskeletal: Denies: Neck Pain, Back Pain, Shoulder Pain, Arm Pain, Hand Pain, Leg Pain, Foot Pain, Joint Pain, Muscle Pain, Spasms, Other Symptoms Neurological: Denies: Weakness, Numbness, Incoordination, Change in speech, Confusion, Seizures, Other Symptoms Objective Physical Examination Neck Exam: Positive: Supple Chest Exam: Positive: Clear to auscultation, Normal air movement Heart Exam: Positive: Rate Normal, Normal S1, Normal S2 Abdomen Exam: Positive: Normal bowel sounds, Soft, Tenderness Extremity Exam: Positive: Normal pulses Skin Exam: Positive: Other skin issue (has a dry dressing on a her back wound. Also small dark lesions, which are painful to touch noted on fingers on both hands and a dry rash on her right index finger) Neuro Exam: Positive: Strength at 5/5 X4 ext, Sensation Intact Assessment /Plan Problems (1) Necrotizing cellulitis Status: Acute Problem Text: Status post debridement by Dr. Ferrell On cefazolin as per Dr. rodriguez Possibility can be placed on by mouth Bactrim/or rifaxin /doxycycline on discharge for chronic suppression Will start Atarax 25 mg by mouth every 6 hours when necessary for itching Wound culture shows MSSA and blood culture 1 bottle shows staph aureus which most likely is contamination Patient has a PICC line placed secondary to difficult IV access Endocarditis ruled out as a STEPHANIE is essentially normal Continue cefazolin as per IDs recommendation Patient is scheduled to go to our today for re-debridement Will follow patient once she returns from OR (2) Diabetes mellitus Status: Chronic Problem Text: Uncontrolled diabetes mellitus type 2 with presenting glucose of 752 pseudohyponatremia with sodium of 125 and a GI Patient's fingerstick is much better controlled now Hence, she has been started fingerstick every before meals and at bedtime with coverage Continue home medications Decrease detemir 45 units subcutaneous every 12 hours due to 2 episodes of hypoglycemia Continue monitoring fingerstick blood sugar with coverage Continue all home meds (3) Supratherapeutic INR Status: Resolved Problem Text: Will decrease her Coumadin to 7.5 mg by mouth daily Coumadin on hold secondary to possible debridement in a.m. INR is still 2.75 Will restart Coumadin once procedure is done (4) Hypothyroid Status: Chronic Problem Text: Continue home meds Plan/VTE VTE Prophylaxis Ordered?: Yes VS, I&O, 24H, Fishbone Vital Signs/I&O Vital Signs Date Time Temp Pulse Resp B/P (MAP) Pulse Ox O2 Delivery O2 Flow Rate FiO2 04/28/19 09:58 77 110/59 04/28/19 09:20 14 93 Room Air 04/28/19 09:05 97.5 04/28/19 08:35 2 I&O- Last 24 Hours up to 6 AM 04/28/19 06:00 Intake Total 2160 ml Output Total 0 ml Balance 2160 ml Laboratory Data 24H LABS Laboratory Tests 2 04/27/19 16:31: Bedside Glucose (Misc Panel) 191H 04/27/19 20:30: Bedside Glucose (Misc Panel) 170H 04/28/19 05:40: Immature Granulocyte % (Auto) 0.7, Neutrophils (%) (Auto) 58.7, Lymphocytes (%) (Auto) 26.5, Monocytes (%) (Auto) 10.9H, Eosinophils (%) (Auto) 2.2, Basophils (%) (Auto) 1.0, Neutrophils # (Auto) 2.4, Lymphocytes # (Auto) 1.1L, Monocytes # (Auto) 0.5, Eosinophils # (Auto) 0.1, Basophils # (Auto) 0.0, Nucleated Red Blood Cells % (auto) 0.7H, Prothrombin Time 28.9H, Prothromb Time International Ratio 2.75, Anion Gap 5L, Glomerular Filtration Rate 53.0, Calcium Level 8.2L, Total Bilirubin 0.3, Aspartate Amino Transf (AST/SGOT) 12, Alanine Aminotransf erase (ALT/SGPT) 8L, Alkaline Phosphatase 342H, Total Protein 6.3L, Albumin 2.2L, Albumin/Globulin Ratio 0.54L 04/28/19 08:01: Bedside Glucose (Misc Panel) 250H 04/28/19 08:37: Bedside Glucose (Misc Panel) 252H 04/28/19 09:02: Bedside Glucose (Misc Panel) 237H CBC/BMP Laboratory Tests 04/28/19 05:40 Microbiology Microbiology 04/23/19 Stool Occult Blood (LENNOX) - Final, Complete NAVIN VILLEGAS MD Apr 28, 2019 11:42
[2019-04-28] MEDS ORDERED: HYDROCORTISONE 1% CREAM 30 GM TOP PRN (16:45)
[2019-04-28] MEDS: ATORVASTATIN 20 MG TAB PO SCH (21:47)
[2019-04-29] MEDS: ceFAZolin SOD 2 GM in IV 1 EA IV SCH ×3 (00:55→17:04)
[2019-04-29] MEDS: PERCOCET 5MG/325MG TAB PO PRN ×3 (02:42→21:55)
[2019-04-29] MEDS: LEVOTHYROXINE 137MCG TABLET (0.137MG) PO SCH (05:27)
[2019-04-29] MEDS: SODIUM CHLORIDE 0.9% INJ 10 ML SYR IV SCH ×2 (05:27→17:05)
[2019-04-29 06:00] VITALS: BP 153/76
[2019-04-29] MEDS: LEVEMIR (INSULIN DETEMIR) 1 UNITS/0.01ML SC SCH ×2 (07:34→21:52)
[2019-04-29] MEDS: HumaLOG INSULIN (NovoLOG) PER UNIT SC SCH ×4 (09:50→21:00)
[2019-04-29] MEDS: PREGABALIN 75 MG CAP(LYRICA) PO SCH ×2 (09:51→21:53)
[2019-04-29] MEDS: LACTOBACILLUS ACIDOPHILUS CAP (BACID) PO SCH ×2 (09:51→17:05)
[2019-04-29] MEDS: FUROSEMIDE 40 MG TAB PO SCH (09:51)
[2019-04-29] MEDS: FAMOTIDINE 20 MG TAB PO SCH ×2 (09:51→21:53)
[2019-04-29] MEDS: DIAPER RELIEF PASTE (DESITIN) 60GM TOP SCH (09:51)
[2019-04-29] MEDS: POTASSIUM CHLORIDE 10 MEQ SR TABLET PO SCH (09:52)
[2019-04-29] MEDS: PARoxetine 10MG TABLET PO SCH (09:52)
[2019-04-29] MEDS: ASPIRIN 81 MG ENTERIC TAB PO SCH (09:52)
[2019-04-29] MEDS: VARENICLINE 1 MG TABLET PO SCH ×2 (09:52→21:53)
[2019-04-29] MEDS: CARVedilol 6.25 MG TAB PO SCH ×2 (09:52→21:53)
[2019-04-29] MEDS: VANICREAM MOISTURIZING SKIN CREAM 113GM TUBE TOP SCH ×3 (09:53→21:56)
[2019-04-29] MEDS: hydrOXYzine 25 MG TAB PO PRN ×2 (09:55→21:53)
[2019-04-29 11:48] LABS: INR 1.86; PROTHROMBIN TIME 21.2 SECONDS (11.8-14.0)
--- NOTE | 2019-04-29 13:44 | IPNPDOC ---
Subjective Date Seen The patient was seen on 04/29/19. Subjective Chief Complaint/HPI Patient is comfortable in no distress had a re-debridement done yesterday General: Denies: ROS Unobtainable, Chills, Night Sweats, Fatigue, Malaise, Normal Appetite, Other Symptoms Constitutional: Denies: Chills, Fever, Malaise, Night Sweats, Weakness, Fatigue, Weight Loss, Lethargy, Other Skin: Reports: Other Pulmonary: Denies: Dyspnea, Cough, Pleuritic Chest Pain, Other Symptoms Cardiovascular: Denies: Chest Pain, Palpitations, Orthopnea, Paroxysmal Noc. Dyspnea, Edema, Lt Headedness, Other Symptoms Gastrointestinal: Denies: Nausea, Vomiting, Abdominal Pain, Diarrhea, Constipation, Melena, Hematochezia, Other Symptoms Musculoskeletal: Denies: Neck Pain, Back Pain, Shoulder Pain, Arm Pain, Hand Pain, Leg Pain, Foot Pain, Joint Pain, Muscle Pain, Spasms, Other Symptoms Neurological: Denies: Weakness, Numbness, Incoordination, Change in speech, Confusion, Seizures, Other Symptoms Objective Physical Examination Neck Exam: Positive: Supple Chest Exam: Positive: Clear to auscultation, Normal air movement Heart Exam: Positive: Rate Normal, Normal S1, Normal S2 Abdomen Exam: Positive: Normal bowel sounds, Soft, Tenderness Extremity Exam: Positive: Normal pulses Skin Exam: Positive: Other skin issue (has a dry dressing on a her back wound. Also small dark lesions, which are painful to touch noted on fingers on both hands and a dry rash on her right index finger) Neuro Exam: Positive: Strength at 5/5 X4 ext, Sensation Intact Assessment /Plan Problems (1) Necrotizing cellulitis Status: Acute Problem Text: Status post debridement by Dr. Ferrell and Dr. Fofana yesterday On cefazolin as per Dr. rodriguez Possibility can be placed on by mouth Bactrim/or rifaxin /doxycycline on discharge for chronic suppression Will start Atarax 25 mg by mouth every 6 hours when necessary for itching Wound culture shows MSSA and blood culture 1 bottle shows staph aureus which most likely is contamination Patient has a PICC line placed secondary to difficult IV access Endocarditis ruled out as a STEPHANIE is essentially normal Continue cefazolin as per IDs recommendation Discussed with patient's PCP, Dr. Kauffman, as patient has been black listed on multiple home care agencies no but is willing to her to take her to home with home care. We'll try to arrange alternative such as subacute rehabilitation facility are family who can provide care at home. Restart Coumadin to maintain INR between 2.5 and 3.5 Continue present care (2) Diabetes mellitus Status: Chronic Problem Text: Uncontrolled diabetes mellitus type 2 with presenting glucose of 752 pseudohyponatremia with sodium of 125 and a GI Patient's fingerstick is much better controlled now Hence, she has been started fingerstick every before meals and at bedtime with coverage Continue home medications Decrease detemir 45 units subcutaneous every 12 hours due to 2 episodes of hypoglycemia Continue monitoring fingerstick blood sugar with coverage Continue all home meds (3) Supratherapeutic INR Status: Resolved Problem Text: Will restart Coumadin at 7.5 mg by mouth daily , Maintain INR between 2.5-3.5 (4) Hypothyroid Status: Chronic Problem Text: Continue home meds Plan/VTE VTE Prophylaxis Ordered?: Yes VS, I&O, 24H, Fishbone Vital Signs/I&O Vital Signs Date Time Temp Pulse Resp B/P (MAP) Pulse Ox O2 Delivery O2 Flow Rate FiO2 04/29/19 10:25 14 Room Air 04/29/19 09:52 80 153/76 04/29/19 06:00 96.5 97 04/28/19 08:35 2 I&O- Last 24 Hours up to 6 AM 04/29/19 06:00 Intake Total 3750 ml Output Total 10 ml Balance 3740 ml Laboratory Data 24H LABS Laboratory Tests 2 04/28/19 16:37: Bedside Glucose (Misc Panel) 99 04/28/19 20:23: Bedside Glucose (Misc Panel) 156H 04/29/19 06:30: Bedside Glucose (Misc Panel) 207H 04/29/19 11:19: Prothrombin Time 21.2H, Prothromb Time International Ratio 1.86 04/29/19 11:34: Bedside Glucose (Misc Panel) 264H Microbiology Microbiology 04/23/19 Stool Occult Blood (LENNOX) - Final, Complete NAVIN VILLEGAS MD Apr 29, 2019 13:44
[2019-04-29 14:00] VITALS: BP 135/80
[2019-04-29] MEDS: WARFARIN SOD 7.5 MG TAB PO SCH (17:05)
--- NOTE | 2019-04-29 18:04 | IPN ---
DATE: 04/29/2019 Jenny feels much better. Her pain in the right flank area has markedly improved since she has had the wound was debrided and she continues using Hydrofera Blue and Optifoam dressings for the wounds. She has not been a candidate for a wound VAC due to lack of nursing agency to take her care at home. She denies any nausea, vomiting, diarrhea, fever or chills. LABORATORY DATA: White count 4.1, hemoglobin 7.5, hematocrit 25.6, platelets 262, 58% neutrophils, 26% lymphocytes, 10% monocytes. Sodium 138, potassium 4.7, chloride 108, bicarbonate 25, BUN 31, creatinine 1.13, glucose 280, calcium 8.2. AST 12, ALT 88 alkaline phosphatase 342, albumin 2.2. No other wound cultures were done intraoperatively. IMPRESSION: 1. 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 On intravenous (IV) cefazolin. The patient has been on IV antibiotics for 2 weeks. She will be switched to doxycycline 100 mg by mouth twice a day, as it has the least drug interaction with Coumadin. 2. Aortic valve replacement with mechanical valve. No evidence of endocarditis on transesophageal echocardiogram (STEPHANIE). Patient did not have Staphylococcus aureus bacteremia ON COUMADIN 3. Recurrent Staphylococcus aureus infections. Workup had been done in 2018. Negative HIV, iga IGM IGD C3/C4/CH50. HIV, hepatitis C all negative. Immunoglobulin IGG level was 1140. PLAN: Discontinue IV cefazolin and switch to oral doxycycline 100 mg by mouth twice a day. Would not USE any other antibiotics such as sulfa or rifampin, as they would definitely interact with Coumadin and increase her risk of embolization and clots MTDD
[2019-04-29 18:45] VITALS: BP 128/72
[2019-04-29] MEDS: ATORVASTATIN 20 MG TAB PO SCH (21:52)
[2019-04-29] MEDS: DOXYCYCLINE HYCLATE 100 MG TAB PO SCH (21:53)
[2019-04-29 22:00] VITALS: BP 151/74
[2019-04-30] VITALS (7 sets, daily range): BP systolic 128–148; BP diastolic 62–72
[2019-04-30] MEDS: PERCOCET 5MG/325MG TAB PO PRN ×3 (04:27→21:40)
[2019-04-30] MEDS: LEVOTHYROXINE 137MCG TABLET (0.137MG) PO SCH (05:19)
[2019-04-30] MEDS: SODIUM CHLORIDE 0.9% INJ 10 ML SYR IV SCH ×2 (06:00→18:00)
[2019-04-30 06:25] LABS: BASO % 1.1 % (0.0-1.0); EOS # 0.1 10^3/uL (0.0-0.5); EOS % 1.9 % (0.0-3.0); HEMATOCRIT 24.3 % (36.0-47.0); LYMPH # 0.9 10^3/uL (1.5-5.0); LYMPH % 24.3 % (24.0-44.0); MEAN CORPUSCULAR HEMOGLOBIN 24.3 pg (27.0-33.0); MEAN CORPUSCULAR HGB CONC 28.8 g/dl (32.0-36.5); MEAN CORPUSCULAR VOLUME 84.4 fl (80.0-96.0); MONO # 0.4 10^3/uL (0.0-0.8); MONO % 11.3 % (0.0-5.0); NEUTROPHILS # 2.3 10^3/uL (1.5-8.5); NEUTROPHILS % 60.9 % (36.0-66.0); PLATELET COUNT, AUTOMATED 238 10^3/uL (150-450); RED BLOOD COUNT 2.88 10^6/uL (4.00-5.40); WHITE BLOOD COUNT 3.7 10^3/uL (4.0-10.0)
[2019-04-30 06:36] LABS: INR 1.55; PROTHROMBIN TIME 18.3 SECONDS (11.8-14.0)
[2019-04-30 06:48] LABS: ALBUMIN 2.2 GM/DL (3.2-5.2); ALT/SGPT < 6 U/L (12-78); BILIRUBIN,TOTAL 0.3 MG/DL (0.2-1.0); BLOOD UREA NITROGEN 31 MG/DL (7-18); CALCIUM LEVEL 8.7 MG/DL (8.5-10.1); CARBON DIOXIDE LEVEL 24 MEQ/L (21-32); CHLORIDE LEVEL 110 MEQ/L (98-107); CREATININE FOR GFR 1.01 MG/DL (0.55-1.30); GLOMERULAR FILTRATION RATE > 60.0 (>51); GLUCOSE, FASTING 299 MG/DL (70-100); POTASSIUM SERUM 4.7 MEQ/L (3.5-5.1); SODIUM LEVEL 138 MEQ/L (136-145); TOTAL PROTEIN 6.3 GM/DL (6.4-8.2)
[2019-04-30] MEDS: PREGABALIN 75 MG CAP(LYRICA) PO SCH ×2 (08:22→21:40)
[2019-04-30] MEDS: VARENICLINE 1 MG TABLET PO SCH ×2 (08:22→21:40)
[2019-04-30] MEDS: LACTOBACILLUS ACIDOPHILUS CAP (BACID) PO SCH ×2 (08:22→18:01)
[2019-04-30] MEDS: hydrOXYzine 25 MG TAB PO PRN ×2 (08:22→21:39)
[2019-04-30] MEDS: FAMOTIDINE 20 MG TAB PO SCH ×2 (08:22→21:38)
[2019-04-30] MEDS: HumaLOG INSULIN (NovoLOG) PER UNIT SC SCH ×4 (08:22→21:00)
[2019-04-30] MEDS: LEVEMIR (INSULIN DETEMIR) 1 UNITS/0.01ML SC SCH ×2 (08:22→21:38)
[2019-04-30] MEDS: DIAPER RELIEF PASTE (DESITIN) 60GM TOP SCH (08:23)
[2019-04-30] MEDS: PARoxetine 10MG TABLET PO SCH (08:23)
[2019-04-30] MEDS: DOXYCYCLINE HYCLATE 100 MG TAB PO SCH ×2 (08:23→21:41)
[2019-04-30] MEDS: POTASSIUM CHLORIDE 10 MEQ SR TABLET PO SCH (08:23)
[2019-04-30] MEDS: ASPIRIN 81 MG ENTERIC TAB PO SCH (08:23)
[2019-04-30] MEDS: CARVedilol 6.25 MG TAB PO SCH ×2 (08:23→21:41)
[2019-04-30] MEDS: FUROSEMIDE 40 MG TAB PO SCH (08:23)
[2019-04-30] MEDS: VANICREAM MOISTURIZING SKIN CREAM 113GM TUBE TOP SCH ×3 (08:24→21:41)
--- NOTE | 2019-04-30 12:12 | IPNPDOC ---
Subjective Date Seen The patient was seen on 04/30/19. Subjective Chief Complaint/HPI Patient is feeling comfortable, in no apparent distress. Wishes to go home now [facility] General: Denies: ROS Unobtainable, Chills, Night Sweats, Fatigue, Malaise, Normal Appetite, Other Symptoms Skin: Denies: Rash, Lesions, Jaundice, Bruising, Itching, Dry, Breakdown, Nail Changes, Other Pulmonary: Denies: Dyspnea, Cough, Pleuritic Chest Pain, Other Symptoms Cardiovascular: Denies: Chest Pain, Palpitations, Orthopnea, Paroxysmal Noc. Dyspnea, Edema, Lt Headedness, Other Symptoms Gastrointestinal: Denies: Nausea, Vomiting, Abdominal Pain, Diarrhea, Constipation, Melena, Hematochezia, Other Symptoms Musculoskeletal: Denies: Neck Pain, Back Pain, Shoulder Pain, Arm Pain, Hand Pain, Leg Pain, Foot Pain, Joint Pain, Muscle Pain, Spasms, Other Symptoms Neurological: Denies: Weakness, Numbness, Incoordination, Change in speech, Confusion, Seizures, Other Symptoms Objective Physical Examination Neck Exam: Positive: Supple Chest Exam: Positive: Clear to auscultation, Normal air movement Heart Exam: Positive: Rate Normal, Normal S1, Normal S2 Abdomen Exam: Positive: Normal bowel sounds, Soft, Tenderness Extremity Exam: Positive: Normal pulses Skin Exam: Positive: Other skin issue (has a dry dressing on a her back wound. Also small dark lesions, which are painful to touch noted on fingers on both hands and a dry rash on her right index finger) Neuro Exam: Positive: Strength at 5/5 X4 ext, Sensation Intact Assessment /Plan Problems (1) Necrotizing cellulitis Status: Acute Problem Text: Status post debridement by Dr. Ferrell and Dr. Fofana yesterday Possibility can be placed on by mouth Bactrim/or rifaxin /doxycycline on discharge for chronic suppression Will start Atarax 25 mg by mouth every 6 hours when necessary for itching Wound culture shows MSSA and blood culture 1 bottle shows staph aureus which most likely is contamination Patient relates she'll he received cefazolin but has been changed to by mouth doxycycline yesterday Endocarditis ruled out as a STEPHANIE is essentially normal Continue cefazolin as per IDs recommendation Discussed with patient's PCP, Dr. Kauffman, as patient has been black listed on multiple home care agencies no but is willing to her to take her to home with home care. We'll try to arrange alternative such as subacute rehabilitation facility or family who can provide care at home. Restart Coumadin to maintain INR between 2.5 and 3.5 Patient. IV antibiotics have been stopped and has been started on by mouth doxycycline Once the arrangements are made and that somebody can change her dressings at home and then she can follow up with Dr. Rodriguez every week. Wound care then She can be discharged home Discharge planning (2) Diabetes mellitus Status: Chronic Problem Text: Uncontrolled diabetes mellitus type 2 with presenting glucose of 752 pseudohyponatremia with sodium of 125 and a GI Patient's fingerstick is much better controlled now Hence, she has been started fingerstick every before meals and at bedtime with coverage Continue home medications Decrease detemir 45 units subcutaneous every 12 hours due to 2 episodes of hypoglycemia Continue monitoring fingerstick blood sugar with coverage Continue all home meds (3) Supratherapeutic INR Status: Resolved Problem Text: Will restart Coumadin at 7.5 mg by mouth daily , Maintain INR between 2.5-3.5 (4) Hypothyroid Status: Chronic Problem Text: Continue home meds Plan/VTE VTE Prophylaxis Ordered?: Yes VS, I&O, 24H, Fishbone Vital Signs/I&O Vital Signs Date Time Temp Pulse Resp B/P (MAP) Pulse Ox O2 Delivery O2 Flow Rate FiO2 04/30/19 11:39 20 Room Air 04/30/19 11:35 96.4 74 131/72 97 04/28/19 08:35 2 I&O- Last 24 Hours up to 6 AM 04/30/19 06:00 Intake Total 2086 ml Output Total 0 ml Balance 2086 ml Laboratory Data 24H LABS Laboratory Tests 2 04/29/19 16:45: Bedside Glucose (Misc Panel) 174H 04/29/19 20:29: Bedside Glucose (Misc Panel) 231H 04/30/19 06:05: Immature Granulocyte % (Auto) 0.5, Neutrophils (%) (Auto) 60.9, Lymphocytes (%) (Auto) 24.3, Monocytes (%) (Auto) 11.3H, Eosinophils (%) (Auto) 1.9, Basophils (%) (Auto) 1.1H, Neutrophils # (Auto) 2.3, Lymphocytes # (Auto) 0.9L, Monocytes # (Auto) 0.4, Eosinophils # (Auto) 0.1, Basophils # (Auto) 0.0, Nucleated Red Blood Cells % (auto) 1.1H, Prothrombin Time 18.3H, Prothromb Time International Ratio 1.55, Anion Gap 4L, Glomerular Filtration Rate > 60.0, Calcium Level 8.7, Total Bilirubin 0.3, Aspartate Amino Transf (AST/SGOT) 8, Alanine Aminotransferase (ALT/SGPT) < 6L, Alkaline Phosphatase 308H, Total Protein 6.3L, Albumin 2.2L, Albumin/Globulin Ratio 0.54L 04/30/19 11:35: Bedside Glucose (Misc Panel) 238H CBC/BMP Laboratory Tests 04/30/19 06:05 Microbiology Microbiology 04/23/19 Stool Occult Blood (LENNOX) - Final, Complete NAVIN VILLEGAS MD Apr 30, 2019 12:12
[2019-04-30] MEDS: WARFARIN SOD 7.5 MG TAB PO SCH (18:01)
[2019-04-30] MEDS: ATORVASTATIN 20 MG TAB PO SCH (21:40)
[2019-05-01] MEDS: SODIUM CHLORIDE 0.9% INJ 10 ML SYR IV SCH ×2 (05:28→17:29)
[2019-05-01] MEDS: LEVOTHYROXINE 137MCG TABLET (0.137MG) PO SCH (05:29)
[2019-05-01] MEDS: PERCOCET 5MG/325MG TAB PO PRN ×2 (05:38→21:25)
[2019-05-01] MEDS: hydrOXYzine 25 MG TAB PO PRN ×2 (05:38→21:24)
[2019-05-01 05:47] LABS: BASO % 0.8 % (0.0-1.0); EOS # 0.2 10^3/uL (0.0-0.5); HEMATOCRIT 28.1 % (36.0-47.0); HEMOGLOBIN 8.2 g/dl (12.0-15.5); LYMPH # 0.9 10^3/uL (1.5-5.0); LYMPH % 24.1 % (24.0-44.0); MEAN CORPUSCULAR HEMOGLOBIN 24.9 pg (27.0-33.0); MEAN CORPUSCULAR HGB CONC 29.2 g/dl (32.0-36.5); MEAN CORPUSCULAR VOLUME 85.4 fl (80.0-96.0); MONO # 0.4 10^3/uL (0.0-0.8); MONO % 9.5 % (0.0-5.0); NEUTROPHILS # 2.3 10^3/uL (1.5-8.5); NEUTROPHILS % 60.8 % (36.0-66.0); PLATELET COUNT, AUTOMATED 217 10^3/uL (150-450); RED BLOOD COUNT 3.29 10^6/uL (4.00-5.40); WHITE BLOOD COUNT 3.8 10^3/uL (4.0-10.0)
[2019-05-01 05:58] LABS: INR 1.59; PROTHROMBIN TIME 18.7 SECONDS (11.8-14.0)
[2019-05-01 06:00] VITALS: BP 146/69
[2019-05-01 06:14] LABS: ALBUMIN 2.3 GM/DL (3.2-5.2); ALT/SGPT 8 U/L (12-78); BILIRUBIN,TOTAL 0.3 MG/DL (0.2-1.0); BLOOD UREA NITROGEN 32 MG/DL (7-18); CALCIUM LEVEL 8.3 MG/DL (8.5-10.1); CARBON DIOXIDE LEVEL 24 MEQ/L (21-32); CHLORIDE LEVEL 108 MEQ/L (98-107); CREATININE FOR GFR 0.91 MG/DL (0.55-1.30); GLOMERULAR FILTRATION RATE > 60.0 (>51); GLUCOSE, FASTING 216 MG/DL (70-100); POTASSIUM SERUM 4.8 MEQ/L (3.5-5.1); SODIUM LEVEL 139 MEQ/L (136-145); TOTAL PROTEIN 5.9 GM/DL (6.4-8.2)
[2019-05-01] MEDS: LACTOBACILLUS ACIDOPHILUS CAP (BACID) PO SCH ×2 (07:49→17:28)
[2019-05-01] MEDS: DOXYCYCLINE HYCLATE 100 MG TAB PO SCH ×2 (07:49→21:13)
[2019-05-01] MEDS: HumaLOG INSULIN (NovoLOG) PER UNIT SC SCH ×4 (07:49→20:50)
[2019-05-01] MEDS: ASPIRIN 81 MG ENTERIC TAB PO SCH (07:50)
[2019-05-01] MEDS: POTASSIUM CHLORIDE 10 MEQ SR TABLET PO SCH (07:50)
[2019-05-01] MEDS: LEVEMIR (INSULIN DETEMIR) 1 UNITS/0.01ML SC SCH ×2 (07:50→20:51)
[2019-05-01] MEDS: FAMOTIDINE 20 MG TAB PO SCH ×2 (07:51→21:12)
[2019-05-01] MEDS: VARENICLINE 1 MG TABLET PO SCH ×2 (07:51→21:13)
[2019-05-01] MEDS: VANICREAM MOISTURIZING SKIN CREAM 113GM TUBE TOP SCH ×3 (07:51→21:27)
[2019-05-01] MEDS: DIAPER RELIEF PASTE (DESITIN) 60GM TOP SCH (07:51)
[2019-05-01] MEDS: FUROSEMIDE 40 MG TAB PO SCH (07:51)
[2019-05-01] MEDS: CARVedilol 6.25 MG TAB PO SCH ×2 (07:51→21:13)
[2019-05-01] MEDS: PARoxetine 10MG TABLET PO SCH (07:51)
[2019-05-01] MEDS: PREGABALIN 75 MG CAP(LYRICA) PO SCH ×2 (07:51→21:12)
--- NOTE | 2019-05-01 11:52 | IPNPDOC ---
Subjective Date Seen The patient was seen on 05/01/19. Subjective Chief Complaint/HPI As per patient, she has gained a lot of weight once she was stopped from her Glucophage and Lasix General: Denies: ROS Unobtainable, Chills, Night Sweats, Fatigue, Malaise, Normal Appetite, Other Symptoms Constitutional: Denies: Chills, Fever, Malaise, Night Sweats, Weakness, Fatigue, Weight Loss, Lethargy, Other Skin: Denies: Rash, Lesions, Jaundice, Bruising, Itching, Dry, Breakdown, Nail Changes, Other Pulmonary: Denies: Dyspnea, Cough, Pleuritic Chest Pain, Other Symptoms Cardiovascular: Denies: Chest Pain, Palpitations, Orthopnea, Paroxysmal Noc. Dyspnea, Edema, Lt Headedness, Other Symptoms Gastrointestinal: Denies: Nausea, Vomiting, Abdominal Pain, Diarrhea, Constipation, Melena, Hematochezia, Other Symptoms Musculoskeletal: Denies: Neck Pain, Back Pain, Shoulder Pain, Arm Pain, Hand Pain, Leg Pain, Foot Pain, Joint Pain, Muscle Pain, Spasms, Other Symptoms Neurological: Denies: Weakness, Numbness, Incoordination, Change in speech, Confusion, Seizures, Other Symptoms Objective Physical Examination Neck Exam: Positive: Supple Chest Exam: Positive: Clear to auscultation, Normal air movement Heart Exam: Positive: Rate Normal, Normal S1, Normal S2 Abdomen Exam: Positive: Normal bowel sounds, Soft, Tenderness Extremity Exam: Positive: Normal pulses Skin Exam: Positive: Other skin issue (has a dry dressing on a her back wound. Also small dark lesions, which are painful to touch noted on fingers on both hands and a dry rash on her right index finger) Neuro Exam: Positive: Strength at 5/5 X4 ext, Sensation Intact Assessment /Plan Problems (1) Necrotizing cellulitis Status: Acute Problem Text: Status post debridement by Dr. Ferrell and Dr. Fofana yesterday Possibility can be placed on by mouth Bactrim/or rifaxin /doxycycline on discharge for chronic suppression Will start Atarax 25 mg by mouth every 6 hours when necessary for itching Wound culture shows MSSA and blood culture 1 bottle shows staph aureus which most likely is contamination Patient relates she'll he received cefazolin but has been changed to by mouth doxycycline yesterday Endocarditis ruled out as a STEPHANIE is essentially normal Continue cefazolin as per IDs recommendation Discussed with patient's PCP, Dr. Kauffman, as patient has been black listed on multiple home care agencies no but is willing to her to take her to home with home care. We'll try to arrange alternative such as subacute rehabilitation facility or family who can provide care at home. Restart Coumadin to maintain INR between 2.5 and 3.5 Patient. IV antibiotics have been stopped and has been started on by mouth doxycycline Once the arrangements are made and that somebody can change her dressings at home and then she can follow up with Dr. Rodriguez every week. Wound care then She can be discharged home Issues related to be discharged home once all the outpatient arrangements have been made (2) Diabetes mellitus Status: Chronic Problem Text: Uncontrolled diabetes mellitus type 2 with presenting glucose of 752 pseudohyponatremia with sodium of 125 and a GI Patient's fingerstick is much better controlled now Hence, she has been started fingerstick every before meals and at bedtime with coverage Increase in that her mother to 50 units twice a day secondary to persistently high blood sugar Add Glucophage 500 twice a day as previously (3) Supratherapeutic INR Status: Resolved Problem Text: Will increase Coumadin to 10 mg by mouth patient's home dose daily INR is subtherapeutic 1.59 today Repeat INR in a.m. (4) Hypothyroid Status: Chronic Problem Text: Continue home meds Plan/VTE VTE Prophylaxis Ordered?: Yes VS, I&O, 24H, Fishbone Vital Signs/I&O Vital Signs Date Time Temp Pulse Resp B/P (MAP) Pulse Ox O2 Delivery O2 Flow Rate FiO2 05/01/19 07:51 71 146/69 05/01/19 06:08 16 Room Air 05/01/19 06:00 96.6 98 04/28/19 08:35 2 I&O- Last 24 Hours up to 6 AM 05/01/19 06:00 Intake Total 2315 ml Balance 2315 ml Laboratory Data 24H LABS Laboratory Tests 2 04/30/19 16:58: Bedside Glucose (Misc Panel) 138H 04/30/19 20:49: Bedside Glucose (Misc Panel) 186H 05/01/19 05:27: Immature Granulocyte % (Auto) 0.8, Neutrophils (%) (Auto) 60.8, Lymphocytes (%) (Auto) 24.1, Monocytes (%) (Auto) 9.5H, Eosinophils (%) (Auto) 4.0H, Basophils (%) (Auto) 0.8, Neutrophils # (Auto) 2.3, Lymphocytes # (Auto) 0.9L, Monocytes # (Auto) 0.4, Eosinophils # (Auto) 0.2, Basophils # (Auto) 0.0, Nucleated Red Blood Cells % (auto) 0.8H, Prothrombin Time 18.7H, Prothromb Time International Ratio 1.59, Anion Gap 7L, Glomerular Filtration Rate > 60.0, Calcium Level 8.3L, Total Bilirubin 0.3, Aspartate Amino Transf (AST/SGOT) 9, Alanine Aminotransferase (ALT/SGPT) 8L, Alkaline Phosphatase 288H, Total Protein 5.9L, Albumin 2.3L, Albumin/Globulin Ratio 0.64L CBC/BMP Laboratory Tests 05/01/19 05:27 Microbiology Microbiology 04/23/19 Stool Occult Blood (LENNOX) - Final, Complete NAVIN VILLEGAS MD May 01, 2019 11:52
[2019-05-01 14:00] VITALS: BP 142/62
[2019-05-01] MEDS: metFORMIN (GLUCOPHAGE) 1000 MG TABLET PO SCH (17:28)
[2019-05-01] MEDS: WARFARIN SOD 5 MG TAB PO SCH (17:28)
[2019-05-01] MEDS: ATORVASTATIN 20 MG TAB PO SCH (21:13)
[2019-05-01 22:00] VITALS: BP 149/59
[2019-05-02 06:00] VITALS: BP 149/67
[2019-05-02] MEDS: LEVOTHYROXINE 137MCG TABLET (0.137MG) PO SCH (06:05)
[2019-05-02] MEDS: metFORMIN (GLUCOPHAGE) 1000 MG TABLET PO SCH ×2 (06:05→17:56)
[2019-05-02] MEDS: SODIUM CHLORIDE 0.9% INJ 10 ML SYR IV SCH ×2 (06:05→17:59)
[2019-05-02 06:40] LABS: INR 1.81; PROTHROMBIN TIME 20.7 SECONDS (11.8-14.0)
[2019-05-02] MEDS: FAMOTIDINE 20 MG TAB PO SCH ×2 (08:51→20:41)
[2019-05-02] MEDS: DOXYCYCLINE HYCLATE 100 MG TAB PO SCH ×2 (08:51→20:42)
[2019-05-02] MEDS: VARENICLINE 1 MG TABLET PO SCH ×2 (08:51→20:41)
[2019-05-02] MEDS: ASPIRIN 81 MG ENTERIC TAB PO SCH (08:51)
[2019-05-02] MEDS: PARoxetine 10MG TABLET PO SCH (08:51)
[2019-05-02] MEDS: LACTOBACILLUS ACIDOPHILUS CAP (BACID) PO SCH ×2 (08:51→17:57)
[2019-05-02] MEDS: CARVedilol 6.25 MG TAB PO SCH ×2 (08:51→20:42)
[2019-05-02] MEDS: PREGABALIN 75 MG CAP(LYRICA) PO SCH ×2 (08:52→20:42)
[2019-05-02] MEDS: FUROSEMIDE 40 MG TAB PO SCH ×2 (08:52→17:57)
[2019-05-02] MEDS: POTASSIUM CHLORIDE 10 MEQ SR TABLET PO SCH (08:52)
[2019-05-02] MEDS: LEVEMIR (INSULIN DETEMIR) 1 UNITS/0.01ML SC SCH ×2 (08:53→21:00)
[2019-05-02] MEDS: HumaLOG INSULIN (NovoLOG) PER UNIT SC SCH ×4 (08:54→21:00)
[2019-05-02] MEDS: VANICREAM MOISTURIZING SKIN CREAM 113GM TUBE TOP SCH ×3 (08:54→20:43)
[2019-05-02] MEDS: DIAPER RELIEF PASTE (DESITIN) 60GM TOP SCH (08:55)
[2019-05-02] MEDS ORDERED: FUROSEMIDE 40 MG TAB PO SCH (09:00)
[2019-05-02] MEDS: hydrOXYzine 25 MG TAB PO PRN (09:04)
[2019-05-02] MEDS: PERCOCET 5MG/325MG TAB PO PRN ×2 (09:05→15:16)
--- NOTE | 2019-05-02 11:36 | IPNPDOC ---
Subjective Date Seen The patient was seen on 05/02/19. Subjective Chief Complaint/HPI Patient offers no new complaints, awaiting for discharge home as she has refused to go to senior living facility or subacute rehabilitation facility General: Denies: ROS Unobtainable, Chills, Night Sweats, Fatigue, Malaise, Normal Appetite, Other Symptoms Constitutional: Denies: Chills, Fever, Malaise, Night Sweats, Weakness, Fatigue, Weight Loss, Lethargy, Other Eyes: Denies: Pain, Vision change, Conjunctivae inflammation, Eyelid inflammation, Redness, Other Pulmonary: Denies: Dyspnea, Cough, Pleuritic Chest Pain, Other Symptoms Cardiovascular: Denies: Chest Pain, Palpitations, Orthopnea, Paroxysmal Noc. Dyspnea, Edema, Lt Headedness, Other Symptoms Gastrointestinal: Denies: Nausea, Vomiting, Abdominal Pain, Diarrhea, Const ipation, Melena, Hematochezia, Other Symptoms Musculoskeletal: Denies: Neck Pain, Back Pain, Shoulder Pain, Arm Pain, Hand Pain, Leg Pain, Foot Pain, Joint Pain, Muscle Pain, Spasms, Other Symptoms Neurological: Denies: Weakness, Numbness, Incoordination, Change in speech, Confusion, Seizures, Other Symptoms Objective Physical Examination Neck Exam: Positive: Supple Chest Exam: Positive: Clear to auscultation, Normal air movement Heart Exam: Positive: Rate Normal, Normal S1, Normal S2 Abdomen Exam: Positive: Normal bowel sounds, Soft, Tenderness Extremity Exam: Positive: Normal pulses Skin Exam: Positive: Other skin issue (has a dry dressing on a her back wound. Also small dark lesions, which are painful to touch noted on fingers on both hands and a dry rash on her right index finger) Neuro Exam: Positive: Strength at 5/5 X4 ext, Sensation Intact Assessment /Plan Problems (1) Necrotizing cellulitis Status: Acute Problem Text: Status post debridement by Dr. Ferrell and Dr. Fofana yesterday Possibility can be placed on by mouth Bactrim/or rifaxin /doxycycline on discharge for chronic suppression Will start Atarax 25 mg by mouth every 6 hours when necessary for itching Wound culture shows MSSA and blood culture 1 bottle shows staph aureus which most likely is contamination Patient relates she'll he received cefazolin but has been changed to by mouth doxycycline yesterday Endocarditis ruled out as a STEPHANIE is essentially normal Continue cefazolin as per IDs recommendation Discussed with patient's PCP, Dr. Kauffman, as patient has been black listed on multiple home care agencies no but is willing to her to take her to home with home care. We'll try to arrange alternative such as subacute rehabilitation facility or family who can provide care at home. Restart Coumadin to maintain INR between 2.5 and 3.5 Patient. IV antibiotics have been stopped and has been started on by mouth doxycycline Once the arrangements are made and that somebody can change her dressings at home and then she can follow up with Dr. Rodriguez every week for wound care then She can be discharged home once issues related to home discharge are resolved (2) Diabetes mellitus Status: Chronic Problem Text: Uncontrolled diabetes mellitus type 2 with presenting glucose of 752 pseudohyponatremia with sodium of 125 and a GI Patient's fingerstick is much better controlled now Hence, she has been started fingerstick every before meals and at bedtime with coverage Increase in that her mother to 50 units twice a day secondary to persistently high blood sugar Add Glucophage 500 twice a day as previously (3) Supratherapeutic INR Status: Resolved Problem Text: Will increase Coumadin to 10 mg by mouth patient's home dose daily INR is subtherapeutic 1.81 Repeat INR in a.m. (4) Hypothyroid Status: Chronic Problem Text: Continue home meds (5) Weight gain Status: Chronic Problem Text: Most likely secondary to sedentary lifestyle. She does not much ambulate on does physical activities. Will increase Lasix to 40 mg by mouth twice a day even though her lungs are clear. There is no evidence of any heart failure at the present time Also would reintroduce Glucophage and her insulin has been adjusted to 50 units twice a day Again frequent ambulation and physical activities was highly recommended to her Plan/VTE VTE Prophylaxis Ordered?: Yes VS, I&O, 24H, Fishbone Vital Signs/I&O Vital Signs Date Time Temp Pulse Resp B/P (MAP) Pulse Ox O2 Delivery O2 Flow Rate FiO2 05/02/19 09:35 18 Room Air 05/02/19 08:51 77 138/68 05/02/19 06:00 97.3 96 04/28/19 08:35 2 I&O- Last 24 Hours up to 6 AM 05/02/19 06:00 Intake Total 660 ml Output Total 0 ml Balance 660 ml Laboratory Data 24H LABS Laboratory Tests 2 05/01/19 11:37: Bedside Glucose (Misc Panel) 187H 05/01/19 16:34: Bedside Glucose (Misc Panel) 151H 05/01/19 20:38: Bedside Glucose (Misc Panel) 146H 05/02/19 05:56: Bedside Glucose (Misc Panel) 191H 05/02/19 06:12: Prothrombin Time 20.7H, Prothromb Time International Ratio 1.81 Microbiology Microbiology 04/23/19 Stool Occult Blood (LENNOX) - Final, Complete NAVIN VILLEGAS MD May 02, 2019 11:36
[2019-05-02 14:00] VITALS: BP 148/68
[2019-05-02] MEDS: WARFARIN SOD 5 MG TAB PO SCH (17:57)
--- NOTE | 2019-05-02 20:02 | IPN ---
DATE: 05/02/2019 SUBJECTIVE: Patient was seen and examined this morning. She currently states that she is doing well. She denies any significant pain. She has been started on doxycycline. Patient is planned to be discharged once she has home care arranged. OBJECTIVE: VITAL SIGNS: Temperature 90.1, pulse 81, respiratory rate 19, blood pressure 140/68, pulse oximetry 100% on room air. GENERAL: Patient is awake, alert and oriented. She does not appear in any acute distress. She is lying comfortably in bed. She is pleasant and conversant. HEENT: Atraumatic. Normocephalic. Eyes nonicteric. Trachea is midline. CARDIOVASCULAR: Normal S1, S2. She has a 2/6 systolic ejection murmur. No clicks or rubs. RESPIRATORY: The patient has clear vesicular breath sounds bilaterally with good respiratory effort. There are no wheezes, rhonchi or rales. ABDOMEN: Patient is obese. Her abdomen is soft. It is nondistended. There is no tenderness. BACK: Patient has an area of ulceration which is approximately 15 x 10 x 10 cm without any drainage. There is currently a packing in place. The wound does not appear erythematous. The wound appears to be healing from previous examinations. EXTREMITIES: There is no clubbing or cyanosis. No edema. There is no tenderness. 2+ posterior tibial and radial pulses in bilateral upper and lower extremities. ASSESSMENT AND PLAN: 1. Necrotizing staphylococcus aureus. Methicillin-sensitive Staphylococcus aureus infection of back. Patient was previously on intravenous cefazolin. She has been changed to doxycycline 100 mg by mouth twice a day. She will need to be continued on this for undetermined amount of time as patient has recurrent Staphylococcus aureus infections and abscesses. Once discharged, patient will need to followup with infectious disease as outpatient. 2. History of aortic valve replacement and mechanical valve. There is currently no evidence of endocarditis. She had a transesophageal echocardiogram (STEPHANIE). Patient will be continued on doxycycline for her abscesses. 3. Recurrent Staphylococcus aureus infections. As stated previously, the patient has recurrent Staphylococcus aureus infections/abscesses. She will be continued on doxycycline. She will need to followup in the infectious disease office. In 2018 she has received studies for HIV, IgM, IgD and compliment studies and everything was negative. My faculty preceptor for this patient encounter was physically present during the encounter and was fully available. All aspects of the patient interview, examination, medical decision making process, and medical care plan development were reviewed and approved by the faculty preceptor. The faculty preceptor is aware and concurs with the plan as stated in the body of this note and will attest to such by his/her co-signature.
[2019-05-02 20:40] VITALS: BP 146/70
[2019-05-02] MEDS: ATORVASTATIN 20 MG TAB PO SCH (20:42)
[2019-05-02 22:00] VITALS: BP 146/70
[2019-05-03 06:00] VITALS: BP 110/45
[2019-05-03] MEDS: LEVOTHYROXINE 137MCG TABLET (0.137MG) PO SCH (06:06)
[2019-05-03] MEDS: SODIUM CHLORIDE 0.9% INJ 10 ML SYR IV SCH (06:07)
[2019-05-03 06:37] LABS: INR 1.97; PROTHROMBIN TIME 22.2 SECONDS (11.8-14.0)
[2019-05-03] MEDS: PREGABALIN 75 MG CAP(LYRICA) PO SCH (08:53)
[2019-05-03] MEDS: POTASSIUM CHLORIDE 10 MEQ SR TABLET PO SCH (08:53)
[2019-05-03] MEDS: FAMOTIDINE 20 MG TAB PO SCH (08:53)
[2019-05-03] MEDS: LACTOBACILLUS ACIDOPHILUS CAP (BACID) PO SCH (08:53)
[2019-05-03] MEDS: ASPIRIN 81 MG ENTERIC TAB PO SCH (08:53)
[2019-05-03] MEDS: FUROSEMIDE 40 MG TAB PO SCH (08:54)
[2019-05-03] MEDS: VARENICLINE 1 MG TABLET PO SCH (08:54)
[2019-05-03 08:57] VITALS: BP 158/71
[2019-05-03] MEDS: CARVedilol 6.25 MG TAB PO SCH (08:57)
[2019-05-03] MEDS: PARoxetine 10MG TABLET PO SCH (08:57)
[2019-05-03] MEDS: DIAPER RELIEF PASTE (DESITIN) 60GM TOP SCH (08:57)
[2019-05-03] MEDS: metFORMIN (GLUCOPHAGE) 1000 MG TABLET PO SCH (08:57)
[2019-05-03] MEDS: HumaLOG INSULIN (NovoLOG) PER UNIT SC SCH ×2 (08:58→12:00)
[2019-05-03] MEDS: DOXYCYCLINE HYCLATE 100 MG TAB PO SCH (08:58)
[2019-05-03] MEDS: VANICREAM MOISTURIZING SKIN CREAM 113GM TUBE TOP SCH (08:59)
[2019-05-03] MEDS: LEVEMIR (INSULIN DETEMIR) 1 UNITS/0.01ML SC SCH (09:00)
[2019-05-03 10:00] VITALS: BP 159/71
[2019-05-03] MEDS ORDERED: PERCOCET PO (10:56)
[2019-05-03] MEDS ORDERED: CARV6.25 PO (10:56)
[2019-05-03] MEDS ORDERED: INSUDET SC (10:56)
[2019-05-03] MEDS ORDERED: DOXY100T PO (10:56)
[2019-05-03] MEDS ORDERED: VARE1TA PO (10:56)
[2019-05-03] MEDS ORDERED: VANI1CRE5 TOP (10:56)
[2019-05-03] MEDS ORDERED: Petrolatum,White TOP (10:56)
[2019-05-03] MEDS ORDERED: FURO40TA2 PO (10:56)
[2019-05-03] MEDS ORDERED: LYRI75CA PO (10:56)
[2019-05-03] MEDS ORDERED: HYDR-3363 PO (10:56)
[2019-05-03] MEDS ORDERED: HYDR1CR TOP (10:56)
--- NOTE | 2019-05-03 11:41 | DS.PDOC ---
Discharge Summary General Date of Admission Apr 15, 2019 at 22:18 Date of Discharge 05/03/19 Discharge Summary PROCEDURES PERFORMED DURING STAY: None. ADMITTING DIAGNOSES: 1. Cellulitis of the back, diabetes mellitus. DISCHARGE DIAGNOSES: 1. Necrotizing cellulitis, diabetes mellitus, mitral prosthesis, hypothyroidism, obesity. COMPLICATIONS/CHIEF COMPLAINT: Cellulitis. HISTORY OF PRESENT ILLNESS: 58-year-old female with nonhealing pressure ulcer in the midback with increasing and purulent drainage for the past few weeks. The patient has been bed bound due to severe pain for the past several weeks, laying on her side with her friend helping her with bandaging the area. According to the patient, her friend had noted increasing purulent drainage without fever or chills at home. She has been bed bound secondary to severe pain when she tries to get up and walk around. Described the pain as 10 out of 10 pain without any improvement with Tylenol at home. For the past 10 days she has been unable to see Dr. Rodriguez, she usually sees him once a week. She has run out of supplies and they have been using regular 4 x 4's at home. Today, she got out of bed and she felt very debilitated and weak, stumbling as she walked about 3 feet and fell on her face and hit the wall. Due to increasing back drainage as well as significant weakness causing a fall, the patient decided to come into the emergency room for further evaluation. She was found to be afebrile with purulent drainage and a 1 cm tract from an open abscess. Her white count was normal. She was found to have a glucose of 750 so the hospitalist was asked to admit.. HOSPITAL COURSE: Necrotizing cellulitis: Status post debridement by Dr. Ferrell and Dr. Fofana yesterday Possibility can be placed on by mouth Bactrim/or rifaxin /doxycycline on discharge for chronic suppression Will start Atarax 25 mg by mouth every 6 hours when necessary for itching Wound culture shows MSSA and blood culture 1 bottle shows staph aureus which most likely is contamination Patient relates she'll he received cefazolin but has been changed to by mouth doxycycline yesterday Endocarditis ruled out as a STEPHANIE is essentially normal Continue cefazolin as per IDs recommendation Discussed with patient's PCP, Dr. Kauffman, as patient has been black listed on multiple home care agencies no but is willing to her to take her to home with home care. We'll try to arrange alternative such as subacute rehabilitation facility or family who can provide care at home. Restart Coumadin to maintain INR between 2.5 and 3.5 Patient. IV antibiotics have been stopped and has been started on by mouth doxycycline Patient will be discharged home today. She is a scheduled to follow with Dr. Rodriguez on 05/05/2019 Patient has a friend who will help her with her back dressing and home care consult have been requested. Uncontrolled diabetes mellitus type 2 with presenting glucose of 752 pseudohyponatremia with sodium of 125 and a GI Patient's fingerstick is much better controlled now Hence, she has been started fingerstick every before meals and at bedtime with coverage Increase in that her mother to 50 units twice a day secondary to persistently high blood sugar Add Glucophage 500 twice a day as previously and will continue all her previous medications Will follow up with her PCP for adjustment in her medications Prosthetic mitral valve : We will continue Coumadin to 10 mg by mouth patient's home dose daily INR is subtherapeutic 1.97 . Today: Is between 2.5-3.5 Patient advised to continue all her home medications, compliance counseling was done and extensively and she will follow up with Dr. Rodriguez on Sunday DISCHARGE MEDICATIONS: Please see below. ALLERGIES: Please see below. PHYSICAL EXAMINATION ON DISCHARGE: VITAL SIGNS: Please see below. GENERAL: Within normal limits HEENT: PERRLA. Extraocular muscles intact NECK: Supple CARDIOVASCULAR EXAMINATION: S1, S2, regular RESPIRATORY EXAMINATION: Clear to A&P ABDOMINAL EXAMINATION: Benign EXTREMITIES: No clubbing, cyanosis, edema SKIN: Dressing at the back NEUROLOGICAL EXAMINATION: . No focal motor sensory deficit PSYCHIATRIC EXAMINATION: Normal LABORATORY DATA: Please see below. IMAGING: Abdominal ultrasound:omplex collections are noted at the area of concern --- 1 collection is at the medial margin of a recent incision for drainage of an abscess; 2 are located lateral to the incision. The collections are complex. Diagnostic considerations include: soft tissue abscesses; phlegmons; hematomas. PROGNOSIS: Good ACTIVITY: As tolerated. DIET: As tolerated DISCHARGE PLAN: Follow with Dr. Rodriguez in one week DISPOSITION: . Home DISCHARGE INSTRUCTIONS: 1. As per discharge instructions. ITEMS TO FOLLOWUP ON ON OUTPATIENT: 1. Follow with Dr. Rodriguez in one week. DISCHARGE CONDITION: Stable. TIME SPENT ON DISCHARGE: 49 minutes. Vital Signs/I&Os Vital Signs Date Time Temp Pulse Resp B/P (MAP) Pulse Ox O2 Delivery O2 Flow Rate FiO2 05/03/19 08:57 82 158/71 05/03/19 06:00 97.8 18 96 Room Air 04/28/19 08:35 2 I&O- Last 24 Hours up to 6 AM 05/03/19 06:00 Intake Total 1510 ml Output Total 0 ml Balance 1510 ml Laboratory Data Labs 24H Laboratory Tests 2 05/02/19 16:45: Bedside Glucose (Misc Panel) 166H 05/02/19 20:51: Bedside Glucose (Misc Panel) 128H 05/03/19 06:02: Bedside Glucose (Misc Panel) 132H 05/03/19 06:15: Prothrombin Time 22.2H, Prothromb Time International Ratio 1.97 FSBS Laboratory Tests Test 05/02/19 16:45 05/02/19 20:51 05/03/19 06:02 Range/Units Bedside Glucose (Misc Panel) 166 128 132 70-105 MG/DL Microbiology Microbiology 04/23/19 Stool Occult Blood (LENNOX) - Final, Complete Discharge Medications Scheduled Aspirin (Aspir 81) 81 Mg Tab, 81 MG PO DAILY, (Reported) Atorvastatin Calcium (Atorvastatin Calcium) 80 Mg Tab, 80 MG PO QHS, (Reported) Carvedilol (Carvedilol) 6.25 Mg Tablet, 6.25 MG PO BID Doxycycline Hyclate (Doxycycline Hyclate) 100 Mg Tablet, 100 MG PO BID Emollient Base (Vanicream) 453 Gm Cream..g., 0 DOSE TOP TID Ertugliflozin Pidolate (Steglatro) 15 Mg Tablet, 15 MG PO DAILY, (Reported) Furosemide (Furosemide) 40 Mg Tablet, 40 MG PO BID@0900,1700 Insulin Detemir (Levemir) 100 Unit/1 Ml Vial, 50 UNITS SC BID Insulin Lispro (Admelog) 100 Unit/1 Ml Vial, 1 DOSE SC AC, (Reported) SLIDING SCALE Levothyroxine Sodium (Levoxyl) 137 Mcg Tab, 137 MCG PO DAILY, (Reported) Lisinopril (Lisinopril) 5 Mg Tablet, 5 MG PO DAILY, (Reported) Lixisenatide (Adlyxin) 20 Mcg/0.2 Ml Pen.injctr, 20 MCG SC DAILY, (Reported) INJECT LESS THAN ONE HOUR BEFORE FIRST MEAL OF THE DAY Metformin HCl (Metformin HCl) 1,000 Mg Tab, 1,000 MG PO BID, (Reported) Paroxetine HCl (Paroxetine) 10 Mg Tablet, 10 MG PO DAILY, (Reported) Potassium Chloride (Potassium Chloride) 20 Meq Tab.er.prt, 20 MEQ PO DAILY, (Reported) Pregabalin (Pregabalin) 150 Mg Capsule, 150 MG PO BID, (Reported) Pregabalin (Lyrica) 75 Mg Capsule, 150 MG PO BID Ranitidine HCl (Ranitidine HCl) 150 Mg Cap, 1 CAP PO BID, (Reported) Varenicline (Chantix) 1 Mg Tablet, 1 MG PO BID Warfarin Sodium (Warfarin Sodium) 10 Mg Tablet, 10 MG PO QPM, (Reported) [Petrolatum,White] 99 GM OINT...G., 0 DOSE TOP DAILY Scheduled PRN Albuterol Sulfate (Ventolin Hfa) 18 Gm Hfa.aer.ad, 2 PUFF INH Q4H PRN for SHORTNESS OF BREATH, (Reported) Hydrocortisone (Hydrocortisone) 28 Gm Cream..g., 0 DOSE TOP TIDP PRN for ITCHING Hydroxyzine HCl (Hydroxyzine HCl) 25 Mg Tablet, 25 MG PO Q6HP PRN for ITCHING Ipratropium/Albuterol Sulfate (Iprat-Albut 0.5-3(2.5) mg/3 ml) 3 Ml Ampul.neb, 1 VIAL NEB BID PRN for SHORTNESS OF BREATH, (Reported) Oxycodone/Acetaminophen (Oxycodone-Acetaminophen 5-325) 1 Each Tablet, 2 TAB PO Q4HP PRN for SEVERE PAIN (PS 8-10) Zolpidem Tartrate (Zolpidem Tartrate) 5 Mg Tab, 5 MG PO QHS PRN for SLEEP, (Reported) Allergies Coded Allergies: ciprofloxacin (Verified Adverse Reaction, Intermediate, Severe Diarrhea, 04/15/19) heparin (Verified Adverse Reaction, Intermediate, Heparin Induced Thrombocytopenia, 04/15/19) UPDATE: LOVENOX CHALLENGE 09/2018 RESULTED IN NO REDUCTION INPLATELET COUNTS NAVIN VILLEGAS MD May 03, 2019 11:41
[2019-05-03] MEDS ORDERED: BASA100I SC (12:06)
== END 2019-05-03 15:06 | disposition home health service (06) | DRG 361 ==
LOC: EDBD 18:36 → M ED 18:36 → M ED INP 22:18 → M PCU 04-16 00:26 → M MSPAV 04-19 21:41
PROVIDERS: ADMIT General Practice; ATTEND Internal Medicine
PROC: 0HB6XZZ Excision of Back Skin, External Approach (ICD-10-PCS; principal; 2019-04-17)
PROC: 02HV33Z Insertion of Infusion Device into Superior Vena Cava, Percutaneous Approach (ICD-10-PCS; 2019-04-21)
PROC: B246ZZ4 Ultrasonography of Right and Left Heart, Transesophageal (ICD-10-PCS; 2019-04-23)
PROC: 0WBK0ZZ Excision of Upper Back, Open Approach (ICD-10-PCS; 2019-04-28)
DX: E11.621 Type 2 diabetes mellitus with foot ulcer (principal); I50.42 Chronic combined systolic (congestive) and diastolic (congestive) heart failure; B37.0 Candidal stomatitis; L89.110 Pressure ulcer of right upper back, unstageable; E11.40 Type 2 diabetes mellitus with diabetic neuropathy, unspecified; E11.51 Type 2 diabetes mellitus with diabetic peripheral angiopathy without gangrene; I48.91 Unspecified atrial fibrillation; E11.65 Type 2 diabetes mellitus with hyperglycemia; L03.312 Cellulitis of back [any part except buttock and flank]; E11.628 Type 2 diabetes mellitus with other skin complications; I25.10 Atherosclerotic heart disease of native coronary artery without angina pectoris; Z66 Do not resuscitate; B95.61 Methicillin susceptible Staphylococcus aureus infection as the cause of diseases classified elsewhere; I25.2 Old myocardial infarction; L98.423 Non-pressure chronic ulcer of back with necrosis of muscle; E03.9 Hypothyroidism, unspecified; J44.9 Chronic obstructive pulmonary disease, unspecified; E78.5 Hyperlipidemia, unspecified; F17.210 Nicotine dependence, cigarettes, uncomplicated; F41.9 Anxiety disorder, unspecified; F32.9 Major depressive disorder, single episode, unspecified; G47.00 Insomnia, unspecified; Z95.810 Presence of automatic (implantable) cardiac defibrillator; Z95.1 Presence of aortocoronary bypass graft; Z95.2 Presence of prosthetic heart valve; Z88.1 Allergy status to other antibiotic agents; Z88.8 Allergy status to other drugs, medicaments and biological substances

== ENCOUNTER → 2019-07-22 | Outpatient (REF) | payer OTHER ==
[~2019-07-22] MED LIST changes: +ADLY20IN SC; +DOXY100T PO; +FURO40TA2 PO; +HYDR-3363 PO; +HYDR1CR TOP; +LISI-542 PO; +POTA20TA6 PO; +PREG150C PO; +Petrolatum,White TOP; +STEG15TA PO; +VANI1CRE5 TOP; +VARE1TA PO
[2019-07-22 13:27] LABS: INR 2.42; PROTHROMBIN TIME 26.2 SECONDS (11.8-14.0)
[2019-07-22 13:37] LABS: HEMOGLOBIN A1c 12.7 %
[2019-07-22 13:51] LABS: CALCIUM LEVEL 9.1 MG/DL (8.5-10.1); CREATININE FOR GFR 1.13 MG/DL (0.55-1.30); GLOMERULAR FILTRATION RATE 52.8 (>51); POTASSIUM SERUM 5.1 MEQ/L (3.5-5.1)
== END ==
LOC: M LAB REF 11:39
PROVIDERS: ATTEND Obstetrics & Gynecology
DX: E11.622 Type 2 diabetes mellitus with other skin ulcer (principal); I10 Essential (primary) hypertension

== ENCOUNTER → 2019-07-26 | Outpatient (REF) | payer OTHER ==
[2019-07-26 12:37] LABS: BASO % 0.9 % (0.0-1.0); EOS % 0.9 % (0.0-3.0); HEMOGLOBIN 11.4 g/dl (12.0-15.5); LYMPH # 0.9 10^3/uL (1.5-5.0); LYMPH % 19.7 % (24.0-44.0); MEAN CORPUSCULAR HEMOGLOBIN 20.2 pg (27.0-33.0); MEAN CORPUSCULAR HGB CONC 27.1 g/dl (32.0-36.5); MEAN CORPUSCULAR VOLUME 74.3 fl (80.0-96.0); MONO # 0.4 10^3/uL (0.0-0.8); MONO % 9.7 % (0.0-5.0); NEUTROPHILS % 68.3 % (36.0-66.0); PLATELET COUNT, AUTOMATED 159 10^3/uL (150-450); RED BLOOD COUNT 5.65 10^6/uL (4.00-5.40); WHITE BLOOD COUNT 4.4 10^3/uL (4.0-10.0)
[2019-07-26 12:42] LABS: C REACTIVE PROTEIN QUANTITATIV 1.96 MG/DL (0.00-0.30); CALCIUM LEVEL 8.9 MG/DL (8.5-10.1); CREATININE FOR GFR 1.21 MG/DL (0.55-1.30); GLOMERULAR FILTRATION RATE 48.8 (>51); POTASSIUM SERUM 4.4 MEQ/L (3.5-5.1)
[2019-07-26 12:59] LABS: ERYTHROCYTE SEDIMENTATION RATE 17 mm/hr (0-30)
== END ==
LOC: M LAB REF 11:40
PROVIDERS: ATTEND Surgery
DX: E11.621 Type 2 diabetes mellitus with foot ulcer (principal)

== ENCOUNTER → 2019-08-05 | Outpatient (REF) | payer OTHER ==
[2019-08-05 13:07] LABS: INR 2.67; PROTHROMBIN TIME 28.3 SECONDS (11.8-14.0)
== END ==
LOC: M SFHCPLAZ 12:31
PROVIDERS: ATTEND Obstetrics & Gynecology
DX: Z51.81 Encounter for therapeutic drug level monitoring (principal)

== ENCOUNTER 2019-08-12 10:47 | Emergency (ER) | payer OTHER ==
[~2019-08-12] VITALS: Ht 175.3 cm; Wt 95.0 kg
[2019-08-12] MEDS ORDERED: NAPROXEN 250 MG TAB PO ONE (13:45)
[2019-08-12] MEDS ORDERED: BACTRIM 160MG/800MG DS TAB PO ONE (13:45)
[2019-08-12] MEDS ORDERED: BACT800T5 PO (13:58)
--- NOTE | 2019-08-12 13:59 | REP ---
RIGHT LOWER LEG, AP AND LATERAL: There is no evidence of an acute fracture, dislocation or intrinsic bone disease. IMPRESSION: No fracture or dislocation. Electronically Signed by Lucian Garcia MD 08/12/2019 08:19 P
--- NOTE | 2019-08-12 13:59 | REP ---
RIGHT ANKLE, FOUR VIEWS: There is no evidence of an acute fracture, dislocation or intrinsic bone disease. IMPRESSION: No fracture or dislocation. Electronically Signed by Lucian Garcia MD 08/12/2019 08:19 P
[2019-08-12 14:35] VITALS: BP 105/54
[2019-08-14] MEDS ORDERED: KEFL500C17 PO (09:43)
== END 2019-08-12 14:52 | disposition home or self-care (01) ==
LOC: M ED 10:47 → EDBD 10:47 → M ED 14:52
DX: S93.401A Sprain of unspecified ligament of right ankle, initial encounter (principal); L03.115 Cellulitis of right lower limb; X50.1XXA Overexertion from prolonged static or awkward postures, initial encounter; Y92.099 Unspecified place in other non-institutional residence as the place of occurrence of the external cause; Y93.9 Activity, unspecified; Y99.9 Unspecified external cause status; I51.9 Heart disease, unspecified; E11.9 Type 2 diabetes mellitus without complications; I10 Essential (primary) hypertension; Z95.0 Presence of cardiac pacemaker; Z79.82 Long term (current) use of aspirin; Z79.01 Long term (current) use of anticoagulants; Z79.4 Long term (current) use of insulin; Z79.899 Other long term (current) drug therapy; Z88.1 Allergy status to other antibiotic agents; Z88.8 Allergy status to other drugs, medicaments and biological substances

== ENCOUNTER 2019-08-15 13:49 | Inpatient (IN) | payer OTHER ==
[~2019-08-15] VITALS: Ht 175.3 cm; Wt 106.8 kg
[2019-08-15 14:28] LABS: BASO # 0.1 10^3/uL (0.0-0.2); BASO % 0.3 % (0.0-1.0); EOS % 0.1 % (0.0-3.0); HEMATOCRIT 35.1 % (36.0-47.0); HEMOGLOBIN 9.7 g/dl (12.0-15.5); LYMPH # 0.5 10^3/uL (1.5-5.0); LYMPH % 3.1 % (24.0-44.0); MEAN CORPUSCULAR HGB CONC 27.6 g/dl (32.0-36.5); MEAN CORPUSCULAR VOLUME 72.4 fl (80.0-96.0); MONO # 0.9 10^3/uL (0.0-0.8); MONO % 6.2 % (0.0-5.0); NEUTROPHILS # 13.1 10^3/uL (1.5-8.5); NEUTROPHILS % 87.4 % (36.0-66.0); RED BLOOD COUNT 4.85 10^6/uL (4.00-5.40)
[2019-08-15 14:42] LABS: PLATELET COUNT, AUTOMATED 169 10^3/uL (150-450)
[2019-08-15] MEDS ORDERED: NS 1,000 ML IV ONE (14:45)
[2019-08-15 15:04] LABS: C REACTIVE PROTEIN QUANTITATIV 31.4 MG/DL (0.00-0.30)
[2019-08-15 15:14] LABS: ERYTHROCYTE SEDIMENTATION RATE 60 mm/hr (0-30)
[2019-08-15] MEDS ORDERED: MORPHINE 2 MG/ML 1ML VIAL (J2270) IV ONE (15:15)
[2019-08-15] MEDS ORDERED: VANCOMYCIN HCL 2,000 MG in D5W 500 ML IV ONE (15:45)
[2019-08-15] MEDS ORDERED: NS 1,820 ML in IV 1 EA IV ONE (15:45)
[2019-08-15] MEDS ORDERED: cefTRIAXone SOD 2 GM in D5W MINI-BAG PLUS 50 ML IV ONE (15:45)
[2019-08-15] MEDS ORDERED: NALOXONE INJ 0.4 MG/1 ML VIAL (J2310) IV STA ×2 (15:54→16:50)
[2019-08-15] MEDS ORDERED: NALOXONE INJ 0.4 MG/1 ML VIAL (J2310) As Ordered ONE (15:54)
[2019-08-15] MEDS ORDERED: VANCOMYCIN HCL 1,000 MG, VIAL MATE ADAPTER 1 EACH in D5W 250 ML IV ONE ×2 (16:00→17:00)
[2019-08-15 16:43] LABS: THYROID STIMULATING HORMONE 2.08 uIU/ML (0.358-3.740)
[2019-08-15] MEDS ORDERED: GLUCAGON FOR INJ 1 MG VIAL (J1610) SC PRN (17:45)
[2019-08-15] MEDS ORDERED: DEXTROSE 50% 50 ML SYRINGE IV PRN (17:45)
[2019-08-15] MEDS ORDERED: PATIROMER SORBITEX CALCIUM 8.4 GM POWDER PACKET (VELTASSA) PO ONE (17:45)
[2019-08-15] MEDS ORDERED: GLUCOSE 4 GM CHEW TABLET PO PRN (17:45)
--- NOTE | 2019-08-15 18:02 | HPEPDOC ---
[facility] Medical History & Physical Date of Admission Aug 15, 2019 Date of Service: Aug 15, 2019 Attending Physician: STEVIE SMITH MD History and Physical CHIEF COMPLAINT: Worsening right foot wound HISTORY OF PRESENT ILLNESS: 59-year-old female with past medical history of diabetes mellitus, congestive heart failure, coronary artery disease status post CABG and mitral valve replacement on Coumadin, peripheral vascular disease, atrial fibrillation, chronic kidney disease and hyperlipidemia presents from home with worsening right lower extremity wound. Patient has a wound behind her right ankle which has been worsening for the past month or so, has been following with Dr. Rodriguez in the outpatient setting. Patient was previously admitted in March 2019 with recurrent skin infection with a necrotic abscess in her back, which grew MSSA, was evaluated by infectious disease at that time it was recommended that she will likely require chronic immunosuppressive therapy. Patient was discharged on 05/03/2019 with 30 days of doxycycline, does not appear to have followed up with infectious disease the outpatient setting. Patient was started on doxycycline by Dr. Rodriguez one week ago, presented to the emergency department 3 days ago with the same wound and drainage, was discharged on Bactrim from the emergency department. Patient was then switched to Keflex based on her sensitivities yesterday. Patient presented today with worsening drainage from her wound. In the ED, patient developed hypotension, became unresponsive temporarily and hypoxemic with O2 sats ration in the 70s. N arcan was given, patient did not receive any opioids in the emergency Department and there is no record of her being on any opioids in the outpatient setting. Patient was sitting up in the emergency department at the time of my examination, alert and oriented 3, without any complaints at this time. 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 Patient has received IV fluid bolus in the ED as per sepsis protocol, systolic blood pressure around 120 in the ED, ABG reviewed, which shows adequate oxygenation on nasal cannula. Patient denies any chest pain, nausea, vomiting, abdominal pain or diarrhea. 10 point review of system is negative except for above PAST MEDICAL HISTORY: 1. Congestive heart failure. 2. Uncontrolled diabetes mellitus. 3. Coronary artery disease. 4. Peripheral vascular disease. 5. COPD 6. Atrial fibrillation 7. Chronic kidney disease. 8. Hyperlipidemia PAST SURGICAL HISTORY: 1. CABG. 2. Mechanical mitral valve replacement. 3. Appendectomy. 4. Hysterectomy SOCIAL HISTORY: Smokes one pack per day for over 20 years. Denies alcohol use. Denies drug use FAMILY HISTORY: Father had [place] ALLERGIES: Please see below. HOME MEDICATIONS: Please see below. PHYSICAL EXAMINATION: VITAL SIGNS: Please see below. GENERAL: Obese HEENT: Normocephalic, atraumatic, moist mucous membranes NECK: Supple CARDIOVASCULAR EXAMINATION: S1, S2, no murmurs RESPIRATORY EXAMINATION: Scattered rhonchi, no wheezing ABDOMINAL EXAMINATION: Soft, nontender, nondistended, positive bowel sounds EXTREMITIES: Bilateral lower extremity pitting edema, right greater than left SKIN: Right foot open wound superior to the calcaneus, serosanguineous drainage, mild surrounding erythema, soft tissue noted, possible muscle/tendon involvement NEUROLOGICAL EXAMINATION: Alert and oriented 3, no focal deficits PSYCHIATRIC EXAMINATION: Calm and cooperative LABORATORY DATA: See below. MICROBIOLOGY: Please see below. ASSESSMENT: 59-year-old female with multiple medical comorbidities including recurrent MSSA skin infection/abscesses presents with infected right lower extremity wound. PLAN: 1. Infected right lower extremity wound. Patient hypotensive in the ED, received IV fluid bolus, blood pressure has normalized and stabilized, continue maintenance IV fluids, vancomycin/ceftriaxone based on previous cultures, blood cultures pending, CT right lower extremity to assess for muscle/tendon and bone involvement, general surgery consulted for possible debridement. 2. Acute on chronic kidney disease. Likely related to medication (was recently on Bactrim, chronically on ALYSSA inhibitor and diuretic), Potassium elevated to 6.3, patiromer 16.8 g 1, status post IV fluid bolus in the ED, repeat BMP, continue maintenance IV hydration, renal ultrasound, Boyer catheter for accurate I's and O's, will monitor. 3. Coronary artery disease. Status post CABG, continue optimal medical management with aspirin, statin and beta jordana. 4. Mechanical mitral valve. INR pending, will bridge with heparin GTT once INR is less than 2.5 in case of surgical intervention. 5. Uncontrolled diabetes mellitus. Hemoglobin A1c pending, sliding scale insulin before meals and at bedtime. 6. Atrial fibrillation. On Coumadin in the outpatient setting, will switch to heparin GTT, continue Coreg for rate control. DVT prophylaxis: Anticoagulated with Coumadin. GI prophylaxis: Home PPI Vital Signs Vital Signs Date Time Temp Pulse Resp B/P (MAP) Pulse Ox O2 Delivery O2 Flow Rate FiO2 08/15/19 16:52 116/54 (74) 08/15/19 16:49 65 91 08/15/19 15:15 16 08/15/19 13:57 Room Air Laboratory Data Labs 24H Laboratory Tests 2 08/15/19 14:15: Lactic Acid Level 2.7*H 08/15/19 14:18: Immature Granulocyte % (Auto) 2.9, Neutrophils (%) (Auto) 87.4H, Lymphocytes (%) (Auto) 3.1L, Monocytes (%) (Auto) 6.2H, Eosinophils (%) (Auto) 0.1, Basophils (%) (Auto) 0.3, Neutrophils # (Auto) 13.1H, Lymphocytes # (Auto) 0.5L, Monocytes # (Auto) 0.9H, Eosinophils # (Auto) 0.0, Basophils # (Auto) 0.1, Nucleated Red Blood Cells % (auto) 0.6H, Erythrocyte Sedimentation Rate 60H, C-Reactive Protein, Quantitative 31.40H, Thyroid Stimulating Hormone (TSH) 2.080 08/15/19 14:20: POC Glucose (Misc Panel) 88, POC Sodium (Misc Panel) 133L, POC Potassium (Misc Panel) 6.3*H, POC Chloride (Misc Panel) 106, POC Total CO2 (Misc Panel) 20.0L, POC Blood Urea Nitrogen (Misc Panel 47H, POC Ionized Calcium (Misc Panel) 4.6, POC Creatinine (Misc Panel) 3.1H, POC Hematocrit (Misc Panel) 35.0L 08/15/19 16:48: POC Total CO2 (Misc Panel) 15.0L, POC pH (Misc Panel) 7.291L, POC Base Excess (Misc Panel) -13.0L, POC Saturated Percent O2 (Misc) 99H, POC pO2 (Misc Panel) 170.0H, POC pCO2 (Misc Panel) 29.0L, POC HCO3 (Misc Panel) 14.0L CBC/BMP Laboratory Tests 08/15/19 14:15 08/15/19 14:18 Microbiology Microbiology 08/15/19 Blood Culture, Received Pending 08/15/19 Blood Culture, Received Pending Home Medications Scheduled Aspirin (Aspir 81) 81 Mg Tab, 81 MG PO DAILY Atorvastatin Calcium (Atorvastatin Calcium) 80 Mg Tab, 80 MG PO QHS Carvedilol (Carvedilol) 6.25 Mg Tablet, 6.25 MG PO BID Cephalexin (Keflex) 500 Mg Capsule, 500 MG PO TID Doxycycline Hyclate (Doxycycline Hyclate) 100 Mg Tablet, 100 MG PO BID Emollient Base (Vanicream) 453 Gm Cream..g., 0 DOSE TOP TID Ertugliflozin Pidolate (Steglatro) 15 Mg Tablet, 15 MG PO DAILY Furosemide (Furosemide) 40 Mg Tablet, 40 MG PO BID@0900,1700 Insulin Glargine,Hum.rec.anlog (Basaglar Kwikpen U-100) 100 Unit/1 Ml Insuln.pen, 50 UNIT SC BID Insulin Lispro (Admelog) 100 Unit/1 Ml Vial, 1 DOSE SC AC SLIDING SCALE Levothyroxine Sodium (Levoxyl) 137 Mcg Tab, 137 MCG PO DAILY Lisinopril (Lisinopril) 5 Mg Tablet, 5 MG PO DAILY Lixisenatide (Adlyxin) 20 Mcg/0.2 Ml Pen.injctr, 20 MCG SC DAILY INJECT LESS THAN ONE HOUR BEFORE FIRST MEAL OF THE DAY Metformin HCl (Metformin HCl) 1,000 Mg Tab, 1,000 MG PO BID Paroxetine HCl (Paroxetine) 10 Mg Tablet, 10 MG PO DAILY Potassium Chloride (Potassium Chloride) 20 Meq Tab.er.prt, 20 MEQ PO DAILY Pregabalin (Pregabalin) 150 Mg Capsule, 150 MG PO BID Pregabalin (Lyrica) 75 Mg Capsule, 150 MG PO BID Ranitidine HCl (Ranitidine HCl) 150 Mg Cap, 1 CAP PO BID Varenicline (Chantix) 1 Mg Tablet, 1 MG PO BID Warfarin Sodium (Warfarin Sodium) 10 Mg Tablet, 10 MG PO QPM [Petrolatum,White] 99 GM OINT...G., 0 DOSE TOP DAILY Scheduled PRN Albuterol Sulfate (Ventolin Hfa) 18 Gm Hfa.aer.ad, 2 PUFF INH Q4H PRN for SHORTNESS OF BREATH Hydrocortisone (Hydrocortisone) 28 Gm Cream..g., 0 DOSE TOP TIDP PRN for ITCHING Hydroxyzine HCl (Hydroxyzine HCl) 25 Mg Tablet, 25 MG PO Q6HP PRN for ITCHING Ipratropium/Albuterol Sulfate (Iprat-Albut 0.5-3(2.5) mg/3 ml) 3 Ml Ampul.neb, 1 VIAL NEB BID PRN for SHORTNESS OF BREATH Oxycodone/Acetaminophen (Oxycodone-Acetaminophen 5-325) 1 Each Tablet, 2 TAB PO Q4HP PRN for SEVERE PAIN (PS 8-10) Zolpidem Tartrate (Zolpidem Tartrate) 5 Mg Tab, 5 MG PO QHS PRN for SLEEP Allergies Coded Allergies: ciprofloxacin (Verified Adverse Reaction, Intermediate, Severe Diarrhea, 04/15/19) heparin (Verified Adverse Reaction, Intermediate, Heparin Induced Thrombocytopenia, 04/15/19) UPDATE: LOVENOX CHALLENGE 09/2018 RESULTED IN NO REDUCTION INPLATELET COUNTS A-FIB/CHADSVASC A-FIB History Current/History of A-Fib/PAF?: Yes Current PO Anticoag Therapy: Yes STEVIE SMITH MD Aug 15, 2019 18:02
[2019-08-15] MEDS ORDERED: FURO40TA2 PO (18:12)
[2019-08-15] MEDS ORDERED: CEPH500C PO (18:12)
[2019-08-15] MEDS ORDERED: VARE1TA PO (18:12)
[2019-08-15] MEDS ORDERED: WARF-21 PO (18:12)
[2019-08-15] MEDS ORDERED: BASA100I SC (18:12)
[2019-08-15] MEDS ORDERED: BACT800T5 PO (18:12)
[2019-08-15] MEDS ORDERED: OXYC1TAB23 PO (18:12)
[2019-08-15] MEDS ORDERED: CARV6.25 PO (18:12)
[2019-08-15] MEDS ORDERED: DOXY100T PO (18:12)
[2019-08-15] MEDS ORDERED: HYDR-3363 PO (18:12)
[2019-08-15] MEDS ORDERED: HYDR1OIN TOP (18:12)
[2019-08-15] MEDS ORDERED: FAMO40TA3 PO (18:13)
--- NOTE | 2019-08-15 18:28 | REPVR ---
PROCEDURE INFORMATION: Exam: CT Right Lower Extremity Without Contrast Exam date and time: 08/15/2019 5:31 PM Age: 59 years old Clinical indication: Screening exam; Assess for myositis/osteo TECHNIQUE: Imaging protocol: CT of the Right lower extremity without contrast was performed. Radiation optimization: All CT scans at this facility use at least one of these dose optimization techniques: automated exposure control; mA and/or kV adjustment per patient size (includes targeted exams where dose is matched to clinical indication); or iterative reconstruction. COMPARISON: CR Ankle, complete 08/12/2019 12:32 PM FINDINGS: Bones/joints: Motion artifact degrades image quality. Visualized bones unremarkable. Depending upon suspected site of osteomyelitis repeat evaluation may be indicated, particularly in the mid and forefoot in which evaluation is limited due to artifact. Soft tissues: Soft tissue edema in the calf and foot. IMPRESSION: 1. Soft tissue edema in the calf and foot. 2. Visualized bones unremarkable. Depending upon suspected site of osteomyelitis repeat evaluation may be indicated, particularly in the mid and forefoot in which evaluation is limited due to artifact. Electronically signed by: Johnathon Rocha On 08/15/2019 18:28:34 PM
--- NOTE | 2019-08-15 18:32 | REPVR ---
PROCEDURE INFORMATION: Exam: CT Right Lower Extremity Without Contrast Exam date and time: 08/15/2019 5:31 PM Age: 59 years old Clinical indication: Screening exam; Assess for myositis/osteo TECHNIQUE: Imaging protocol: CT of the Right lower extremity without contrast was performed. Radiation optimization: All CT scans at this facility use at least one of these dose optimization techniques: automated exposure control; mA and/or kV adjustment per patient size (includes targeted exams where dose is matched to clinical indication); or iterative reconstruction. COMPARISON: CR Ankle, complete 08/12/2019 12:32 PM FINDINGS: Bones/joints: No bone destruction demonstrated. No periosteal reaction demonstrated. Soft tissues: Soft tissue edema demonstrated throughout the lower leg most pronounced near the ankle. Gas locules demonstrated between fascial planes between the gastrocnemius and soleus muscles. Clinical correlation to exclude infection such as cellulitis and including necrotizing fasciitis to be excluded clinically. Small knee joint effusion. Vasculature: Atherosclerotic calcifications in the infrapopliteal arteries. IMPRESSION: 1. Soft tissue edema demonstrated throughout the lower leg most pronounced near the ankle. Gas locules demonstrated between fascial planes between the gastrocnemius and soleus muscles. Clinical correlation to exclude infection such as cellulitis and including necrotizing fasciitis to be excluded clinically. 2. Small knee joint effusion. Electronically signed by: Johnathon Rocha On 08/15/2019 18:31:55 PM
--- NOTE | 2019-08-15 18:52 | PHACANCOPD ---
PHARMACY VANCOMYCIN DOSING Pt Demographics Demographics Patient Age:59 , Weight:94.090 , Gender: female Adjusted Body Weight Events Past 24 Hours Events Past 24 Hours: YES: Other Vancomycin Vancomycin indication: SSI Vancomycin Target Ranges: 15-20 mcg/ml Vancomycin Load Y/N: Yes Load Dose Date Time Vancomycin Load Dose: 2G @1800 ON 08/15 Vancomycin Dose Date: 08/15/19. Current Vancomycin Dose: 1G Q24H Intermittent Dosing?: No Labs Labs Laboratory Tests 08/15/19 14:15 08/15/19 14:18 Micro Microbiology 08/15/19 Blood Culture, Received Pending 08/15/19 Blood Culture, Received Pending Creatinine Clearance Date:08/15/19. Creatinine Clearance:CALCULATED TO BE 24 Assessment and Plan Maintaining Current Dose?: Yes Reason for dose change: No Dose Change Pharmacist Note Pharmacist Note Date: 08/15/19. Pharmacist note: Patient has prior history of vancomycin usage. Admitted with SSI being treated with rocephin 1g q24h and vancomycin. BC pending. Current SCr is 3.1 and calculated CrCl is 24. Based on past vancomycin consults and current renal function, patient was given a LD of 2G IV vancomycin at 1800. I am giving a maintenance dosage of 1G q24h to start tomorrow morning at 0900 (15 hours after load). Depending on patient's SCr in am, I may draw a random level before proceeding with maintenance dose. I will continue to monitor this patient and adjust dose as needed. HAILE NGUYEN PHARMACY Aug 15, 2019 18:52
[2019-08-15 19:02] LABS: PARTIAL THROMBOPLASTIN TIME 109.1 SECONDS (25.0-38.4)
[2019-08-15 19:09] LABS: INR 17.43
[2019-08-15] MEDS ORDERED: hydrOXYzine 25 MG TAB PO PRN (19:15)
[2019-08-15] MEDS ORDERED: HYDROCORTISONE 1% OINTMENT 30GM TOP PRN (19:15)
[2019-08-15 19:22] LABS: CALCIUM LEVEL 7.5 MG/DL (8.5-10.1); CREATININE FOR GFR 2.76 MG/DL (0.55-1.30); GLOMERULAR FILTRATION RATE 18.9 (>51); POTASSIUM SERUM 6.2 MEQ/L (3.5-5.1)
[2019-08-15 19:30] VITALS: BP 126/63
[2019-08-15] MEDS ORDERED: PHYTONADIONE INJection 10 MG in NS 50 ML IV ONE ×2 (19:30→21:00)
[2019-08-15] MEDS ORDERED: PHYTONADIONE 10MG/ML INJECTION (J3430) SC ONE (19:45)
[2019-08-15 20:00] VITALS: O2SAT 98
[2019-08-15] MEDS ORDERED: PHYTONADIONE 5 MG TAB PO ONE (20:00)
[2019-08-15] MEDS ORDERED: FLUID PLACE HOLDER IV ONE (20:00)
[2019-08-15] MEDS ORDERED: PROTHROMBIN COMPLEX CONCEN IV ONE (20:00)
--- NOTE | 2019-08-15 20:47 | REPVR ---
PROCEDURE INFORMATION: Exam: US Retroperitoneal Limited, Kidneys Exam date and time: 08/15/2019 8:41 PM Age: 59 years old Clinical indication: Abnormal findings; Abnormal lab test; Abnormal kidney function lab tests; Additional info: Noam TECHNIQUE: Imaging protocol: Real-time ultrasound of the retroperitoneum with image documentation. Examination was focused on the kidneys. COMPARISON: Abdomen, limited US 04/24/2019 5:23 PM FINDINGS: Right kidney: Right kidney measures 13.1 x 5.4 x 5.8 cm. Duplicated right collecting system. Left kidney: Left kidney measures 12.1 x 6.5 x 5.3 cm. Bladder: Bladder not distended and as such not visualized. IMPRESSION: 1. Unremarkable evaluation of the kidneys with incidentally demonstrated duplicated right collecting system. No significant hydronephrosis. 2. Bladder not evaluated. Electronically signed by: Johnathon Rocha On 08/15/2019 20:47:31 PM
[2019-08-15] MEDS: HumaLOG INSULIN (NovoLOG) PER UNIT SC SCH (21:00)
[2019-08-15] MEDS: ATORVASTATIN 20 MG TAB PO SCH (21:03)
[2019-08-15] MEDS: CARVedilol 6.25 MG TAB PO SCH (21:04)
[2019-08-15] MEDS: NS 1,000 ML IV SCH (21:07)
[2019-08-15] MEDS: MEROPENEM INJ 500 MG in IV 1 EA IV SCH (21:28)
[2019-08-15 22:00] VITALS: O2SAT 99
[2019-08-15 23:00] VITALS: O2SAT 99
[2019-08-15 23:59] VITALS: BP 111/53
[2019-08-16] VITALS (36 sets, daily range): BP systolic 82–125; BP diastolic 46–80; O2SAT 89–99
[2019-08-16 05:29] LABS: HEMOGLOBIN 9.2 g/dl (12.0-15.5); MEAN CORPUSCULAR HEMOGLOBIN 19.8 pg (27.0-33.0); MEAN CORPUSCULAR HGB CONC 27.9 g/dl (32.0-36.5); MEAN CORPUSCULAR VOLUME 71.1 fl (80.0-96.0); PLATELET COUNT, AUTOMATED 149 10^3/uL (150-450); RED BLOOD COUNT 4.64 10^6/uL (4.00-5.40); WHITE BLOOD COUNT 18.1 10^3/uL (4.0-10.0)
[2019-08-16 05:40] LABS: INR 2.61; PROTHROMBIN TIME 27.8 SECONDS (11.8-14.0)
[2019-08-16] MEDS: LEVOTHYROXINE 137MCG TABLET (0.137MG) PO SCH (05:49)
[2019-08-16 06:21] LABS: ALBUMIN 2.3 GM/DL (3.2-5.2); BILIRUBIN,TOTAL 0.7 MG/DL (0.2-1.0); CALCIUM LEVEL 7.6 MG/DL (8.5-10.1); CREATININE FOR GFR 2.94 MG/DL (0.55-1.30); GLOMERULAR FILTRATION RATE 17.5 (>51); MAGNESIUM LEVEL 2.5 MG/DL (1.8-2.4); POTASSIUM SERUM 6.2 MEQ/L (3.5-5.1); TOTAL PROTEIN 5.6 GM/DL (6.4-8.2)
[2019-08-16] MEDS ORDERED: SODIUM BICARBONATE 8.4% INJ 50 ML SYRINGE IV STA ×2 (07:05→07:21)
[2019-08-16] MEDS ORDERED: HumuLIN R (REGULAR) INSULIN (NovoLIN R) **100U/ML** PER UNIT IV STA (07:05)
[2019-08-16] MEDS ORDERED: DEXTROSE 50% 50 ML SYRINGE IV STA (07:05)
--- NOTE | 2019-08-16 07:19 | ECGEPIP ---
[facility] - ED Test Date: 2019-08-15 Pat Name: MCKENZIE CARDENAS Department: Room: - Gender: Female [employer]: sb : 1960 Requested By: ALEXANDRE GLOVER Order Number: [id number] Reading MD: Dolly Shah Measurements Intervals [place] Rate: 65 P: 25 SC: 334 QRS: 111 QRSD: 125 T: 65 QT: 493 QTc: 514 Interpretive Statements SINUS RHYTHM WITH FIRST DEGREE AV BLOCK POSSIBLE RIGHT VENTRICULAR HYPERTROPHY IVCD PROLONGED QT INTERVAL COMPARED 11/20/18 Electronically Signed on 08-16-2019 7:19:18 EST by Dolly Shah
[2019-08-16] MEDS: HumaLOG INSULIN (NovoLOG) PER UNIT SC SCH ×4 (07:30→21:00)
[2019-08-16] MEDS ORDERED: PATIROMER SORBITEX CALCIUM 8.4 GM POWDER PACKET (VELTASSA) PO ONE (08:00)
--- NOTE | 2019-08-16 08:18 | CR ---
DATE OF CONSULTATION: 08/15/2019 REASON FOR CONSULTATION: Right posterior leg wound. BRIEF HISTORY OF PRESENT ILLNESS: The patient is a 59-year-old individual who has had multiple admissions for numerous issues associated with her diabetes and her peripheral vascular disease issues and her atrial fibrillation, etc. In any case, she has had a right posterior/Achilles tendon wound that has been present, she states, for up to a month if not a little bit longer and has had numerous debridements of this area at the wound clinic. Has been seen recently for this, has had some increasing swelling and was placed on some antibiotics a week ago and then seen in the emergency department 3 days ago with the same wound, same drainage. She was changed to Keflex the day prior to her admission because of increased drainage. She presented in the emergency room with some hypotensive hypoxemia issues. Narcan was given, and it seems as though this revived the patient despite no "history of recent narcotic use." In any case, she does not complain specifically of increasing abdominal pain with activity but notices that the drainage is still present. She has had no fevers, no chills, comes in with an elevated white count, and a CAT scan was performed given the open area to the Achilles tendon, which showed some air around the soleus near the gastroc. There is some subcutaneous edema throughout the leg. Her past medical history is significant for history of congestive heart failure, uncontrolled diabetes mellitus, coronary artery disease, peripheral vascular disease, COPD, atrial fibrillation, chronic kidney disease, hyperlipidemia, coronary artery bypass graft (CABG), mechanical valve replacement, appendectomy, hysterectomy, history of smoking. Physical exam reveals a 59-year-old who looks stated age. HEENT is unremarkable. Neck is supple without adenopathy. Lungs are clear anteriorly with a few rhonchi. Heart is regular with few irregular beats, mechanical sounds. Abdomen: Soft, nontender. Bilateral extremities reveal edema of the right more than the left. There is an open posterior wound with some minimal drainage. There is some mild erythema. The edema is actually anterior and is really not so much posterior. She really does not complain of posterior calf tenderness with palpation per se. IMPRESSION/PLAN: The patient has an infected right lower extremity wound, and looking at it itself, I have asked her what the wound itself looks like, and she states that the appearance of it is about the same as it has been for the last 3-5 days. With her multiple issues that are present, such as her INR over 17 at this point, her potassium over 6, her creatinine elevated, my concern is that she needs to be significantly medically resuscitated/improved prior to operative intervention and, thus, I would recommend at this time that we optimize her and consider operative intervention when she is optimized. From my standpoint, I have discussed with her extensively operative involvement that may be required for this intervention, specifically, open debridement which, given her wound healing issues, would be significantly problematic for her and in some ways might result in an amputation just with debridement alone. Second issue is possible, if we take her to the operating room and we finding more extensive infection, she may require a below-knee amputation (BKA) or even an above-knee amputation (AKA) with a possible revision as necessary. Concerning also, is that she has dirty urine, and this may also the etiology for her infection. The patient understands and would prefer not to have extensive operative intervention unless absolutely necessary. Once again, I have instructed her that we will elevate her leg, continue with some local dressing changes, and optimize her medically and then reassess her.
[2019-08-16] MEDS: NS 1,000 ML IV SCH (08:20)
[2019-08-16] MEDS: MEROPENEM INJ 500 MG in IV 1 EA IV SCH ×2 (08:22→20:27)
[2019-08-16] MEDS: PARoxetine 10MG TABLET PO SCH (08:22)
[2019-08-16] MEDS: FAMOTIDINE 20 MG TAB PO SCH (08:22)
[2019-08-16] MEDS: CARVedilol 6.25 MG TAB PO SCH ×2 (08:22→21:00)
[2019-08-16] MEDS ORDERED: ASPIRIN 81 MG ENTERIC TAB PO SCH (09:00)
[2019-08-16 09:26] LABS: VANCOMYCIN RANDOM 19.8 UG/ML
[2019-08-16] MEDS: VANCOMYCIN HCL 1,000 MG, VIAL MATE ADAPTER 1 EACH in D5W 250 ML IV SCH (09:53)
[2019-08-16] MEDS ORDERED: NS 500 ML IV ONE ×2 (12:30→13:15)
[2019-08-16 12:39] LABS: CALCIUM LEVEL 8.4 MG/DL (8.5-10.1); CREATININE FOR GFR 3.16 MG/DL (0.55-1.30); GLOMERULAR FILTRATION RATE 16.1 (>51)
[2019-08-16] MEDS ORDERED: SODIUM BICARBONATE 75 MEQ in NS 0.45% 1,000 ML IV SCH (13:00)
--- NOTE | 2019-08-16 14:08 | ECHO ---
DATE OF PROCEDURE: 08/16/2019 REFERRING PHYSICIAN: Dr. Dooley INDICATION: Cardiac arrhythmia. Height 175 cm, weight 108 kg. DIMENSIONS: IVS: 1.2 LV: 4.4 LVPW: 1.2 LA: 4.1 Aorta: 2.5 RV: 4.2 IVC: 2.8 Mitral E wave velocity: 131 E prime septal: 7.2 E prime lateral: 7.1 FINDINGS: The study is of fair technical quality. The patient is in sinus rhythm with likely ventricular pacing. According to the requisition sheet, there was poor cooperation with the exam on the part of the patient. Left ventricle is normal size. There is mild left ventricular hypertrophy. There is asynchrony of left ventricular contraction, I assume due to underlying ventricular pacing. Overall approximately moderate left ventricular systolic dysfunction, I estimate left ventricular ejection fraction (LVEF) around 35-40%. Right ventricle is dilated and hypokinetic. There is severe biatrial enlargement. Aortic valve is normal for patient's age. It has normal mobility. It does not have gross sclerosis. There is mechanical prosthesis in mitral position. Based on 2D imaging, it appears normal with mobility of both mitral leaflets. Tricuspid valve was poorly visualized. There is an echo artifact crossing in the middle of it, most likely represented pacemaker electrode. Pulmonic valve was poorly seen but grossly appears normal. No pericardial effusion is noted. Inferior vena cava is dilated, and there is no appreciable collapse with inspiration, indicative of very high central venous pressure. Aortic root is normal. Aortic arch and abdominal aorta were not well seen. Doppler interrogation of aortic valve reveals no stenosis or insufficiency. There is peak gradient of 6 and mean gradient 2 across mechanical mitral prosthesis. No visualized insufficiency. There is likely severe tricuspid insufficiency. Even though the valve was poorly visualized and by color Doppler imaging the jet is not overly impressive, there is a definitive reversal of flow in hepatic veins in systole indicative of significance of tricuspid insufficiency. Pulmonic valve is functionally competent. Evaluation of diastolic function is inconclusive. There is a fusion of E and A wave on mitral inflow, most likely due to first-degree atrioventricular (AV) block. CONCLUSIONS: 1. Study is of fair technical quality, patient in sinus rhythm with ventricular pacing. 2. Normal left ventricular (LV) size with mild left ventricular hypertrophy (LVH) and approximately moderate left ventricular systolic dysfunction. 3. Dilated hypokinetic right ventricle. 4. Biatrial enlargement. 5. Normal aortic valve. 6. Normally functioning mechanical prosthesis in mitral position. 7. Severe tricuspid insufficiency, potentially due to pacemaker electrode interference with valvular closure. 8. Very high central venous pressure. 9. At least moderate pulmonary hypertension. COMMENT: Subacute bacterial endocarditis (SBE) prophylaxis is recommended. MTDD
[2019-08-16] MEDS ORDERED: LR 500 ML IV ONE (14:30)
[2019-08-16 14:56] LABS: CREATININE,RANDOM URINE 97.1 MG/DL
--- NOTE | 2019-08-16 15:24 | REP ---
CHEST, SINGLE VIEW: COMPARISON: 08/15/2019 Single view of the chest is performed. There is mild cardiomegaly. There is mild bibasilar linear fibroatelectatic change. No infiltrate is seen. There is calcification of the thoracic aorta. There are multiple sternal wires present. There is a left single-lead pacemaker. IMPRESSION: Mild cardiomegaly and bibasilar fibroatelectatic change. No acute infiltrate. Electronically Signed by Lucian Garcia MD 08/16/2019 06:56 P
[2019-08-16 15:42] LABS: ABG BASE EXCESS -10.8 (-2.0-2.0); ABG HCO3 15.4 MEQ/L (22.0-26.0); ABG O2 SATURATION 90.2 % (95.0-99.0); ABG PARTIAL PRESSURE CO2 35.2 mmHg (35.0-45.0); ABG PARTIAL PRESSURE O2 67.1 mmHg (75.0-100.0); ABG STANDARD HCO3 15.7 MEQ/L (22.0-26.0); ABG TOTAL CO2 16.5 MEQ/L (22.0-29.0); ABG pH (ARTERIAL) 7.258 UNITS (7.350-7.450)
[2019-08-16] MEDS ORDERED: HEPARIN DRIP 25,000 UNITS in IV 1 EA IV SCH (17:00)
[2019-08-16] MEDS ORDERED: HEPARIN SOD (PORCINE) 5000 UNITS/ML VIAL (J1644 PER 1000UNITS) IV ONE (17:00)
[2019-08-16] MEDS ORDERED: DOBUTamine HCL 500,000 MCG in IV 1 EA IV SCH (17:00)
[2019-08-16] MEDS ORDERED: cefTRIAXone SOD 1 GM in D5W MINI-BAG PLUS 50 ML IV SCH (17:00)
[2019-08-16] MEDS ORDERED: HYDROCORTISONE 100 MG/2 ML VIAL (J1720 PER 1) IV SCH (17:00)
[2019-08-16] MEDS ORDERED: HEPARIN SOD (PORCINE) 5000 UNITS/ML VIAL (J1644 PER 1000UNITS) IV PRN (17:00)
[2019-08-16] MEDS ORDERED: FUROSEMIDE injection 250 MG in D5W 225 ML IV SCH (19:00)
[2019-08-16] MEDS ORDERED: SODIUM BICARBONATE 150 MEQ in STERILE WATER LITER BAG 1,000 ML IV SCH (19:00)
[2019-08-16 19:07] LABS: INR 1.85; PROTHROMBIN TIME 21.1 SECONDS (11.8-14.0)
--- NOTE | 2019-08-16 19:36 | IPNPDOC ---
Date Seen The patient was seen on 08/16/19. Progress Note INDICATION: Hypotension, pressors needed PROCEDURE ASSISTANT COUNTY ATTORNEY: _Dr. Smith CONSENT: Consent was obtained from _ prior to the procedure. Indications, risks, and benefits were explained at length. PROCEDURE SUMMARY: A time out was performed. My hands were washed immediately prior to the procedure. I wore a surgical cap, mask with protective eyewear, full gown and sterile gloves throughout the procedure. The patient was placed in Trendelenburg position. Left chest region was prepped using chlorhexidine scrub and draped in sterile fashion using a full drape and sterile probe cover employed. The medial and lateral heads of the sternocleidomastoid muscle were identified as was the carotid pulse. The Internal Jugular vein was identified using the ultrasound. Anesthesia was achieved over the vein using 1% lidocaine. Using real-time out of plane guidance, the introducer needle was inserted into the Internal Jugular vein under direct ultrasound visualization. Venous blood was withdrawn. The syringe was removed and a guidewire was advanced into the introducer needle. The guidewire was visualized in the Internal Jugular Vein by ultrasound. A small incision was made at the skin surface with a scalpel and the introducer needle was exchanged for a dilator over the guidewire. After appropriate dilation was obtained, the dilator was exchanged over the wire for a 20 cm central venous catheter. The wire was removed and the catheter was sutured in place at 20 cm. A sterile sorbaview shield was placed over the catheter at the insertion site. The patient tolerated the procedure without any hemodynamic compromise. At time of procedure completion, all ports aspirated and flushed properly. Post-procedure chest x-ray shows adequate placement. Estimated blood loss is <10 cc. VS, I&O, 24H, Fishbone Vital Signs/I&O Vital Signs Date Time Temp Pulse Resp B/P (MAP) Pulse Ox O2 Delivery O2 Flow Rate FiO2 08/16/19 18:45 68 20 105/64 (78) 91 08/16/19 17:30 Room Air 08/16/19 16:00 96.8 08/16/19 12:00 5.0 I&O- Last 24 Hours up to 6 AM 08/16/19 05:59 Intake Total 2850 ml Output Total 200 ml Balance 2650 ml Laboratory Data 24H LABS Laboratory Tests 2 08/15/19 19:32: Lactic Acid Followup at 4 Hours 2.7*H 08/15/19 21:16: Bedside Glucose (Misc Panel) 170H 08/16/19 05:08: Nucleated Red Blood Cells % (auto) 0.7H, Prothrombin Time 27.8H, Prothromb Time International Ratio 2.61, Anion Gap 10, Glomerular Filtration Rate 17.5L, Calcium Level 7.6L, Magnesium Level 2.5H, Total Bilirubin 0.7, Aspartate Amino Transf (AST/SGOT) 30, Alanine Aminotransferase (ALT/SGPT) 38, Alkaline Phosphatase 592H, Total Protein 5.6L, Albumin 2.3L, Albumin/Globulin Ratio 0.70L, Random Vancomycin Level 19.8 08/16/19 11:52: Bedside Glucose (Misc Panel) 222H 08/16/19 11:58: Anion Gap 9, Glomerular Filtration Rate 16.1L, Calcium Level 8.4L 08/16/19 13:27: Lactic Acid Level 2.4*H 08/16/19 14:12: Urine Random Osmolality 362L, Urine Random Creatinine 97.1, Urine Random Sodium 28 08/16/19 15:10: Blood Gas Bicarbonate Standard 15.7L, Arterial Blood pH 7.258L, Arterial Blood Partial Pressure CO2 35.2, Arterial Blood Partial Pressure O2 67.1L, Arterial Blood Total CO2 16.5L, Arterial Blood HCO3 15.4L, Arterial Blood Base Excess - 10.8L, Arterial Blood Oxygen Saturation 90.2L 08/16/19 18:27: Prothrombin Time 21.1H, Prothromb Time International Ratio 1.85, Activated Partial Thromboplast Time 53.2H, Lactic Acid Followup at 4 Hours 1.6, UT-Zso-P-Type Natriuretic Peptide 5810H CBC/BMP Laboratory Tests 08/16/19 05:08 08/16/19 11:58 Microbiology Microbiology 08/15/19 Urine Culture, Received Pending 08/15/19 Blood Culture - Preliminary, Resulted No growth after 24 hours . All specim... 08/15/19 Blood Culture - Preliminary, Resulted No growth after 24 hours . All specim... STEVIE SMITH MD Aug 16, 2019 19:36
--- NOTE | 2019-08-16 20:41 | IPNPDOC ---
Date Seen The patient was seen on 08/16/19. Progress Note HISTORY OF PRESENT ILLNESS: 59-year-old female with past medical history of diabetes mellitus, congestive heart failure, coronary artery disease status post CABG and mitral valve replacement on Coumadin, peripheral vascular disease, atrial fibrillation, chronic kidney disease and hyperlipidemia presents from home with worsening right lower extremity wound. Patient has a wound behind her right ankle which has been worsening for the past month or so, has been following with Dr. Rodriguez in the outpatient setting. Patient was previously admitted in March 2019 with recurrent skin infection with a necrotic abscess in her back, which grew MSSA, was evaluated by infectious disease at that time it was recommended that she will likely require chronic immunosuppressive therapy. Patient was discharged on 05/03/2019 with 30 days of doxycycline, does not appear to have followed up with infectious disease the outpatient setting. Patient was started on doxycycline by Dr. Rodriguez one week ago, presented to the emergency department 3 days ago with the same wound and drainage, was discharged on Bactrim from the emergency department. Patient was then switched to Keflex based on her sensitivities yesterday. Patient presented today with worsening drainage from her wound. In the ED, patient developed hypotension, became unresponsive temporarily and hypoxemic with O2 sats ration in the 70s. Narcan was given, patient did not receive any opioids in the emergency Department and there is no record of her being on any opioids in the outpatient setting. Patient was sitting up in the emergency department at the time of my examination, alert and oriented 3, without any complaints at this time. 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 Patient has received IV fluid bolus in the ED as per sepsis protocol, systolic blood pressure around 120 in the ED, ABG reviewed, which shows adequate oxygenation on nasal cannula. Patient denies any chest pain, nausea, vomiting, abdominal pain or diarrhea. 08/16/19 Patient comfortable in bed, improvement in LE pain, patient developed hypotension as the day progressed along with lethargy. BP remained low despite IV fluid boluses, TTE results available in the afternoon which showed R heart failure with severely elevated RVSP. Patient transferred to the ICU, central line placed, started on Dobutamine & Lasix drip, along with Sodium Bicarb for metabolic acidosis secondary to Renal failure. Urine outpatient has remained low throughout the day & hyperkalemia persists despite getting Patiromer last night, repeat dose of Patiromer given along with Insulin + D50. No plan for surgical i ntervention for RLE wound. 10 point review of system is negative except for above PHYSICAL EXAMINATION: VITAL SIGNS: Please see below. GENERAL: Obese HEENT: Normocephalic, atraumatic, moist mucous membranes NECK: Supple CARDIOVASCULAR EXAMINATION: S1, S2, no murmurs RESPIRATORY EXAMINATION: Scattered rhonchi, no wheezing ABDOMINAL EXAMINATION: Soft, nontender, nondistended, positive bowel sounds EXTREMITIES: Bilateral lower extremity pitting edema, right greater than left SKIN: Right foot open wound superior to the calcaneus, serosanguineous drainage, mild surrounding erythema, exposed tendon NEUROLOGICAL EXAMINATION: Alert and oriented 3, no focal deficits PSYCHIATRIC EXAMINATION: Calm and cooperative LABORATORY DATA: See below. MICROBIOLOGY: Please see below. ASSESSMENT: 59-year-old female with multiple medical comorbidities including recurrent MSSA skin infection/abscesses presents with infected right lower extremity wound. PLAN: 1. Infected right lower extremity wound w/ exposed tendon. continue Vancomycin/Merrem, blood cultures pending, no plan for surgical intervention at this time, suspicion is low for compartment syndrome/necrotizing fasciitis, will consult wound care/plastic surgery for assistance in wound healing/repair. 2. Acute on chronic kidney disease. unknown etiology, infectious vs medication vs cardiorenal syndrome, renal function worsening despite adequate IV resuscitation, after reviewing TTE, cardiorenal makes the most sense, admit to ICU, started dobutamine drip at 3 mcg/kg/min along with Lasix drip at 10 mg/hr. Potassium remains elevated despite one dose of patiromer 16.8 g 1, additional dose provided along w/ Insulin + D50 & 1 AMP of Bicarb. Metabolic acidosis - D5W + 150 Meq NaHCO3 @ 50 ml/hr, Nephrology consult appreciated. 3. Coronary artery disease. Status post CABG, continue optimal medical management with aspirin, statin and beta jordana. 4. Mechanical mitral valve. INR elevated to 17 overnight, received 10 mg of IV Vitamin K in anticipation for surgery today, no longer planning for surgical intervention, INR <2, started Heparin gtt for anticoagulation. 5. Diabetes mellitus. sliding scale insulin before meals and at bedtime. 6. Atrial fibrillation. currently on heparin gtt DVT prophylaxis: on heparin gtt GI prophylaxis: Home PPI VS, I&O, 24H, Fishbone Vital Signs/I&O Vital Signs Date Time Temp Pulse Resp B/P (MAP) Pulse Ox O2 Delivery O2 Flow Rate FiO2 08/16/19 18:45 68 20 105/64 (78) 91 08/16/19 17:30 Room Air 08/16/19 16:00 96.8 08/16/19 12:00 5.0 I&O- Last 24 Hours up to 6 AM 08/16/19 05:59 Intake Total 2850 ml Output Total 200 ml Balance 2650 ml Laboratory Data 24H LABS Laboratory Tests 2 08/15/19 21:16: Bedside Glucose (Misc Panel) 170H 08/16/19 05:08: Nucleated Red Blood Cells % (auto) 0.7H, Prothrombin Time 27.8H, Prothromb Time International Ratio 2.61, Anion Gap 10, Glomerular Filtration Rate 17.5L, Calcium Level 7.6L, Magnesium Level 2.5H, Total Bilirubin 0.7, Aspartate Amino Transf (AST/SGOT) 30, Alanine Aminotransferase (ALT/SGPT) 38, Alkaline Phosphatase 592H, Total Protein 5.6L, Albumin 2.3L, Albumin/Globulin Ratio 0.70L, Random Vancomycin Level 19.8 08/16/19 11:52: Bedside Glucose (Misc Panel) 222H 08/16/19 11:58: Anion Gap 9, Glomerular Filtration Rate 16.1L, Calcium Level 8.4L 08/16/19 13:27: Lactic Acid Level 2.4*H 08/16/19 14:12: Urine Random Osmolality 362L, Urine Random Creatinine 97.1, Urine Random Sodium 28 08/16/19 15:10: Blood Gas Bicarbonate Standard 15.7L, Arterial Blood pH 7.258L, Arterial Blood Partial Pressure CO2 35.2, Arterial Blood Partial Pressure O2 67.1L, Arterial Blood Total CO2 16.5L, Arterial Blood HCO3 15.4L, Arterial Blood Base Excess - 10.8L, Arterial Blood Oxygen Saturation 90.2L 08/16/19 18:27: Prothrombin Time 21.1H, Prothromb Time International Ratio 1.85, Activated Partial Thromboplast Time 53.2H, Lactic Acid Followup at 4 Hours 1.6, Troponin I 0.04, KT-Sat-X-Type Natriuretic Peptide 5810H 08/16/19 18:48: Bedside Glucose (Misc Panel) 149H CBC/BMP Laboratory Tests 08/16/19 05:08 08/16/19 11:58 Microbiology Microbiology 08/15/19 Urine Culture, Received Pending 08/15/19 Blood Culture - Preliminary, Resulted No growth after 24 hours . All specim... 08/15/19 Blood Culture - Preliminary, Resulted No growth after 24 hours . All specim... STEVIE SMITH MD Aug 16, 2019 20:41
--- NOTE | 2019-08-16 21:02 | REPVR ---
PROCEDURE INFORMATION: Exam: US Duplex Lower Extremity Veins Exam date and time: 08/16/2019 8:18 PM Age: 59 years old Clinical indication: Pain; Leg, upper and leg, lower; Bilateral; Additional info: Leg pain/hx afib/r/o dvt TECHNIQUE: Imaging protocol: Real-time duplex ultrasound of the Lower Extremities with 2-D moya scale, color Doppler flow and spectral waveform analysis with image documentation. Complete exam focused on the bilateral lower extremity veins. COMPARISON: No relevant prior studies available. FINDINGS: Right deep veins: The common femoral, femoral, proximal profunda femoral and popliteal veins are patent without thrombus. Normal compressibility and/or augmentation response. Right superficial veins: Saphenofemoral junction is patent without thrombus. Left deep veins: The common femoral, femoral, proximal profunda femoral and popliteal veins are patent without thrombus. Compression images of the distal left femoral artery are limited. Normal compressibility and/or augmentation response otherwise visualized. Left superficial veins: Saphenofemoral junction is patent without thrombus. Soft tissues: Unremarkable. IMPRESSION: No evidence of deep venous thrombosis from the common femoral to the popliteal veins bilaterally. Electronically signed by: Huseyin Ricketts On 08/16/2019 21:02:31 PM
[2019-08-16] MEDS: ATORVASTATIN 20 MG TAB PO SCH (21:50)
[2019-08-17] VITALS (43 sets, daily range): BP systolic 86–132; BP diastolic 44–77; O2SAT 92–95
[2019-08-17] MEDS ORDERED: traMADol 50 MG TAB PO ONE ×2 (02:30→04:30)
[2019-08-17] MEDS ORDERED: ACETAMINOPHEN TAB 650MG DOSE (2X325MG) PO PRN (02:30)
[2019-08-17 05:32] LABS: HEMATOCRIT 31.2 % (36.0-47.0); HEMOGLOBIN 8.9 g/dl (12.0-15.5); MEAN CORPUSCULAR HEMOGLOBIN 19.8 pg (27.0-33.0); MEAN CORPUSCULAR HGB CONC 28.5 g/dl (32.0-36.5); MEAN CORPUSCULAR VOLUME 69.5 fl (80.0-96.0); PLATELET COUNT, AUTOMATED 136 10^3/uL (150-450); RED BLOOD COUNT 4.49 10^6/uL (4.00-5.40); WHITE BLOOD COUNT 14.9 10^3/uL (4.0-10.0)
[2019-08-17 05:42] LABS: INR 2.01; PROTHROMBIN TIME 22.6 SECONDS (11.8-14.0)
[2019-08-17 05:58] LABS: BILIRUBIN,TOTAL 0.6 MG/DL (0.2-1.0); CALCIUM LEVEL 7.3 MG/DL (8.5-10.1); CREATININE FOR GFR 2.99 MG/DL (0.55-1.30); GLOMERULAR FILTRATION RATE 17.2 (>51); MAGNESIUM LEVEL 2.3 MG/DL (1.8-2.4); PHOSPHORUS LEVEL 4.7 MG/DL (2.5-4.9); POTASSIUM SERUM 5.4 MEQ/L (3.5-5.1); TOTAL PROTEIN 5.4 GM/DL (6.4-8.2)
[2019-08-17] MEDS: LEVOTHYROXINE 137MCG TABLET (0.137MG) PO SCH (06:31)
--- NOTE | 2019-08-17 07:15 | REP ---
CHEST, TWO VIEWS: Two views of the chest are performed. There is mild cardiomegaly. There is no acute infiltrate. Mediastinal silhouette is unremarkable. Multiple sternal wires are present. There is a left single-lead pacemaker. IMPRESSION: Mild cardiomegaly. No acute infiltrate. Electronically Signed by Lucian Garcia MD 08/17/2019 05:50 P
--- NOTE | 2019-08-17 07:18 | IPN ---
DATE: 08/16/2019 Patient was admitted yesterday with multiple issues. One was significant anticoagulation issues, also hyperkalemia, renal insufficiency and leg infection. Overnight her legs had been elevated and when I ask her how her leg is feeling she says a lot better today than it was yesterday. When I palpate the calf she is not having any pain or tenderness in this area and there is no significant cellulitis in the area of the leg. Her white count did bump tonight, but looking at her urine I anticipate that it is probably urosepsis more than this right leg given its appearance. In general, this is not acting like a typical ascending infection of the leg and I anticipate noticing that the Achilles tendon is exposed posteriorly, and probably pistoning some of the air up more proximally given its location. In any case, from a surgical standpoint dressing changes have been ordered, leg elevation is performed and at this point after a discussion with her I have instructed her that I feel that it is much more likely that it is infection/sepsis associated with some other etiology, most likely urinary at this time with some urosepsis, and although there may be an infection in the leg I am not convinced that this is extensive or requiring any extensive emergent debridement. Unfortunately, this does lead us to the next issue of her leg. Once her other issues have been resolved, her hyperkalemia, her renal insufficiency/failure, etc., anticoagulation issues, then I would recommend that we obtain a consult from plastics to see if this individual would be a candidate for a rotation flap in the future because at this point unfortunately, given the presentation of this wound it is extremely unlikely with all of her comorbidities that it will heal without any significant intervention. In any case, we will see how she is doing overnight and once again reserve the possibility that she may need urgent/emergent intervention of her leg should that be much more of a concerning issue. She understands our current plan, is happy that were not proceeding with operative intervention understanding that her desire is to avoid any significant possible next step towards amputation and thus we will continue with current supportive care. JAD
[2019-08-17] MEDS: PARoxetine 10MG TABLET PO SCH (08:54)
[2019-08-17] MEDS: MEROPENEM INJ 500 MG in IV 1 EA IV SCH (08:54)
[2019-08-17] MEDS: FAMOTIDINE 20 MG TAB PO SCH (08:54)
[2019-08-17] MEDS: VANCOMYCIN HCL 1,000 MG, VIAL MATE ADAPTER 1 EACH in D5W 250 ML IV SCH (08:54)
[2019-08-17] MEDS: HumaLOG INSULIN (NovoLOG) PER UNIT SC SCH ×2 (08:54→12:00)
[2019-08-17] MEDS: CARVedilol 6.25 MG TAB PO SCH (09:00)
--- NOTE | 2019-08-17 09:00 | REP ---
CHEST, SINGLE VIEW: COMPARISON: Prior exam of the same day. A single view of the chest is performed. There is placement of a left central venous catheter with the tip in the superior vena cava. There is no pneumothorax. Lung lugo are unchanged with no acute infiltrate. There is mild cardiomegaly. Multiple sternal wires are present. There is a left single-lead pacemaker. Electronically Signed by Lucian Garcia MD 08/17/2019 06:26 P
[2019-08-17 11:32] LABS: VANCOMYCIN RANDOM 15.6 UG/ML
--- NOTE | 2019-08-17 11:46 | CR ---
DATE OF CONSULT: 08/16/2019 CONSULTATION FOR: Vianey Dooley MD REASON FOR CONSULT: Acute renal failure. HISTORY OF PRESENT ILLNESS: Ms. Oneil is a 59-year-old female with known history of type 2 diabetes, congestive heart failure, coronary artery disease with prior coronary artery bypass graft (CABG) and mitral valve replacement, history of peripheral vascular disease, atrial fibrillation, hyperlipidemia, and chronic kidney disease. She has an ongoing wound on her right foot and being followed by Dr. Rodriguez at the wound clinic. She has been recently treated with oral antibiotic due to infected wound. She presented to emergency room yesterday and was admitted as she was also noticed to have acute renal failure and hyperkalemia. She has been hydrated with intravenous (IV) fluid but no improvement in kidney function noticed, due to which, a renal consult was requested. PAST MEDICAL AND SURGICAL HISTORY: Significant for; 1. Longstanding type 2 diabetes. 2. Hypertension. 3. Coronary artery disease. 4. Peripheral vascular disease. 5. Atrial fibrillation. 6. Chronic obstructive pulmonary disease (COPD). 7. Hyperlipidemia. 8. History of congestive heart failure. 9. History of chronic kidney disease (CKD). Past surgical history is significant for appendectomy, hysterectomy, mechanical mitral valve replacement, and coronary artery bypass. PERSONAL AND SOCIAL HISTORY: The patient has history of smoking one-pack per day for over 20 years. She denies any alcohol or drug use. FAMILY HISTORY: Is significant for coronary artery disease in her father. No history of end-stage renal disease in her family. REVIEW OF SYSTEMS: The patient denies any fever or chills. She is quite discouraged due to nonhealing right foot wound. Ears, nose, and throat are unremarkable. Cardiovascular system: Significant for coronary artery disease, but denies any chest pain, dyspnea, or leg edema. Respiratory system: Negative for cough or hemoptysis. Gastrointestinal (GI) system is negative for nausea, vomiting, or diarrhea. Genitourinary () system is negative for dysuria, hematuria, kidney stones, flank pain. Musculoskeletal system, is as per history of present illness. She has a chronic, nonhealing infected wound on her right lower leg just above the ankle. No leg edema. Psychosocial system is negative for depression or anxiety. Hematological system is significant for chronic anticoagulation due to atrial fibrillation and mechanical mitral valve. MEDICATIONS: Her home medications include aspirin, atorvastatin, Carvedilol, she was also treated recently with Keflex and doxycycline, furosemide, Steglatro, levothyroxine, insulin Basaglar and Admelog, lisinopril, metformin, paroxetine, potassium chloride, Lyrica, ranitidine, Chantix, Coumadin, albuterol inhaler, oxycodone, and zolpidem. ALLERGIES: Patient has allergy to CIPRO and HEPARIN. PHYSICAL EXAMINATION: Temperature 97 degrees Fahrenheit, heart rate 68 per minute, and respiratory rate 18 per minute. Blood pressure, most recent one is 182/48 mmHg, and oxygen saturation 98%. Head is atraumatic. Neck: Supple and jugular venous distention (JVD) not abnormally elevated. She has no oral thrush or ulcers. Mechanical mitral valve sound is audible on auscultation of her heart. Lungs: Clear to auscultation. Abdomen: Soft and nontender, and bowel sounds are normal. Extremities: Without any cyanosis or clubbing. Right foot wound is covered with dressing. She also has another area of skin necrosis without any evidence of drainage on the sole of her right foot. Neurologically, she is awake, alert, and without a focal deficit. LAB DATA: WBC count is 18.1, hemoglobin 9.2, and hematocrit 33.0. Platelets 149. Yesterday on admission, sodium was 135 and potassium 6.2. This morning, sodium 134, potassium 6.2, BUN 53 and creatinine 2.94. Another chemistry is now back which showed sodium 132, potassium 6.0, CO2 18, BUN 58, and creatinine 3.16. Glucose 211, and calcium 8.4. She had a renal ultrasound done in emergency room, which did not show any evidence of hydronephrosis, and she had normal size kidneys, right kidney at 13.1 and left kidney at 12.1 cm. PROBLEMS: 1. Acute renal failure superimposed on chronic kidney disease. Her kidney function is acting strangely. She did not have any hydronephrosis; however, she does have recurrent hyperkalemia. She was on metformin and angiotensin-converting enzyme (ALYSSA) inhibitor at home, which have been appropriately stopped. She has been hydrated with intravenous (IV) fluid since admission, but no improvement in kidney function noticed so far. At present, there is no emergent indication for dialysis. However, her kidney function will need to be monitored closely. 2. Hyperkalemia. She has persistent hyperkalemia despite Veltassa given last evening. She has some metabolic acidosis, and I am going to change her IV fluid to sodium bicarbonate, and that will likely help with her hyperkalemia. Electrolytes should be checked, and she should be kept on low potassium diet. 3. Metabolic acidosis, most likely related to acute renal failure. She could also have mild lactic acidosis related to metformin use. Her lactic acid level was 2.7. Metformin has already been stopped appropriately due to acute renal failure. Would treat her with sodium bicarbonate infusion, and recheck her chemistry again tomorrow morning. 4. Anemia, most likely related to chronic wound, which is infected. No urgent need for transfusion at present. 5. Infected right foot wound. The patient remains on antibiotics and has been seen by surgery for possible debridement. She is currently on meropenem and vancomycin and we will need to be very careful with use of vancomycin in the setting of acute renal failure. Pharmacy would need to monitor her levels closely. Thank you for involving me in the care of Ms. Oneil. I will follow her along with you.
[2019-08-17] MEDS ORDERED: MORPHINE 2 MG/ML 1ML VIAL (J2270) IV ONE (13:30)
--- NOTE | 2019-08-17 14:09 | ECGEPIP ---
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
[2019-08-17] MEDS: MORPHINE 2 MG/ML 1ML VIAL (J2270) IV PRN ×3 (16:01→20:54)
--- NOTE | 2019-08-17 19:50 | IPNPDOC ---
Date Seen The patient was seen on 08/17/19. Progress Note Patient did well overnight, good urine output w/ Dobutamine & Lasix drip. She refused Heparin gtt, RLE w/ increased pain/swelling, re-evaluated by surgery and possible surgical intervention was discussed with the patient. She is an extremely high risk patient given extensive medical history, including R sided heart failure which would make intubation very risk due to likelihood of hypotension; she would also be extremely difficult to extubate. Patient is adamant that she would rather then have an amputation. The likelihood that this wound heals and patient doesn't require an amputation in the future is low. Patient has repeated multiple times to multiple staff members that she "just w ant to be comfortable". After discussing her current situation with her daughter and a prolonged discussion with myself, RN & surgeon, the patient has decided to stop all treatment and opt for comfort measures only. Patient's current medications will be discontinued, unless they're for comfort, she will be transferred out of the ICU & hospice has been consulted. VS, I&O, 24H, [place] Vital Signs/I&O Vital Signs Date Time Temp Pulse Resp B/P (MAP) Pulse Ox O2 Delivery O2 Flow Rate FiO2 08/17/19 18:12 20 08/17/19 13:30 Room Air 08/17/19 12:00 2.0 08/17/19 12:00 92 08/17/19 11:45 90 106/53 (70) 08/17/19 08:00 97.0 I&O- Last 24 Hours up to 6 AM 08/17/19 06:00 Intake Total 2010 ml Output Total 1380 ml Balance 630 ml Laboratory Data 24H LABS Laboratory Tests 2 08/16/19 21:48: Bedside Glucose (Misc Panel) 125H 08/17/19 05:14: Nucleated Red Blood Cells % (auto) 0.8H, Anion Gap 6L, Glomerular Filtration Rate 17.2L, Calcium Level 7.3L, Phosphorus Level 4.7, Magnesium Level 2.3, Total Bilirubin 0.6, Aspartate Amino Transf (AST/SGOT) 44H, Alanine Aminotransferase (ALT/SGPT) 34, Alkaline Phosphatase 593H, Total Protein 5.4L, Albumin 2.0L, Albumin/Globulin Ratio 0.59L, Random Vancomycin Level 15.6 08/17/19 05:20: Prothrombin Time 22.6H, Prothromb Time International Ratio 2.01 CBC/BMP Laboratory Tests 08/17/19 05:14 Microbiology Microbiology 08/15/19 Urine Culture - Final, Complete Yeast Like Organism 08/15/19 Blood Culture - Preliminary, Resulted No Growth after 48 hours. All Specime... 08/15/19 Blood Culture - Preliminary, Resulted No Growth after 48 hours. All Specime... STEVIE SMITH MD Aug 17, 2019 19:50
[2019-08-18] MEDS: MORPHINE 2 MG/ML 1ML VIAL (J2270) IV PRN ×7 (01:10→22:38)
[2019-08-18] MEDS: LEVOTHYROXINE 137MCG TABLET (0.137MG) PO SCH (05:49)
[2019-08-18] MEDS: guaiFENesin 200 MG TAB PO PRN ×3 (08:42→20:26)
[2019-08-19] MEDS: MORPHINE 2 MG/ML 1ML VIAL (J2270) IV PRN ×4 (02:25→08:51)
[2019-08-19] MEDS: ALBUTEROL 90 MCG/ACT 8GM HFA INHALER INH PRN ×2 (03:53→11:10)
[2019-08-19] MEDS: LEVOTHYROXINE 137MCG TABLET (0.137MG) PO SCH (05:46)
[2019-08-19] MEDS ORDERED: LORA0.5T5 PO (10:29)
[2019-08-19] MEDS ORDERED: MORP20SO3 PO (10:29)
[2019-08-19] MEDS ORDERED: HYOS125TA PO (10:29)
--- NOTE | 2019-08-19 15:58 | DS.PDOC ---
Discharge Summary General Date of Admission Aug 15, 2019 at 17:37 Date of Discharge 08/19/19 Attending Physician: STEVIE SMITH MD Discharge Summary PROCEDURES PERFORMED DURING STAY: None ADMITTING DIAGNOSES: 1. open wound with exposed tendon, severe sepsis, NOAM on CKD, coagulopathy secondary to coumadin DISCHARGE DIAGNOSES: 1. open wound with exposed tendon, severe sepsis, NOAM on CKD, coagulopathy secondary to coumadin COMPLICATIONS/CHIEF COMPLAINT: Noam;Cad;Cellulitis Rll;Chf;Chronic Afib. HISTORY OF PRESENT ILLNESS: 59 y.o female w/ an extensive past medical was admitted for an open RLE wound with exposed achilles tendon. She severe sepsis upon presentation, requiring aggressive IV hydration but given her history of cor pulmonale she had to be diuresed using Dobutamine & Lasix drip. She also presented w/ NOAM on CKD. She had an INR of 17 at the time of presentation, received 10 mg of IV Vitamin K with significant improvement in INR, no bleeding was noted. She was evaluated by General surgery and the given the extent of her wound (gas noted in the fascial planes of the calf) and prior history of poor wound healing due to poorly controlled DM (HgA1c - >12) and PVD, extensive debridement/fasciotomy were recommended with a low likelihood of healing and eventually requiring BKA. Given patient's cor pulmonale, she was a very high risk intubation and would have been very difficult to extubate. After discussing with family and contemplating all of her options, she elected to forgo all medical treatment and elected for comfort measures only. She was evaluated by Hospice care and will be discharged to hospice house today. HOSPITAL COURSE: As above DISCHARGE MEDICATIONS: Please see below. ACTIVITY: As tolerated DIET: Regular DISCHARGE PLAN: f/u with hospice care [facility]POSITION[facility] TIME SPENT ON DISCHARGE: Greater than 15 minutes. Vital Signs/I&Os Vital Signs Date Time Temp Pulse Resp B/P (MAP) Pulse Ox O2 Delivery O2 Flow Rate FiO2 08/19/19 08:50 2.0 08/19/19 05:46 18 08/17/19 21:04 Room Air 08/17/19 12:00 92 08/17/19 11:45 90 106/53 (70) 08/17/19 08:00 97.0 I&O- Last 24 Hours up to 6 AM 08/19/19 06:00 Intake Total 970 ml Output Total 1975 ml Balance -1005 ml Microbiology Microbiology 08/15/19 Urine Culture - Final, Complete Yeast Like Organism 08/15/19 Blood Culture - Preliminary, Resulted No Growth after 72 hours. All specime... 08/15/19 Blood Culture - Preliminary, Resulted No Growth after 72 hours. All specime... Discharge Medications Scheduled PRN Hyoscyamine Sulfate (Hyoscyamine Sulfate) 0.125 Mg Tab.subl, 0.125 MG PO Q4HP PRN for TERMINAL SECRETIONS Use sublingually if unable to swallow Lorazepam (Lorazepam) 0.5 Mg Tablet, 0.5 MG PO Q4HP PRN for ANXIETY/AGITATION Use sublingually if unable to swallow Morphine Sulfate (Morphine Sulfate) 100 Mg/5 Ml Solution, 0.25-1 ML PO Q2H PRN for PAIN OR DYSPNEA Use sublingually if unable to swallow Allergies Coded Allergies: ciprofloxacin (Verified Adverse Reaction, Intermediate, Severe Diarrhea, 04/15/19) heparin (Verified Adverse Reaction, Intermediate, Heparin Induced Thrombocytopenia, 04/15/19) UPDATE: LOVENOX CHALLENGE 09/2018 RESULTED IN NO REDUCTION INPLATELET COUNTS STEVIE SMITH MD Aug 19, 2019 15:58
== END 2019-08-19 11:18 | disposition hospice, inpatient (51) | DRG 720 ==
LOC: M ED 13:49 → M ED INP 17:37 → ENRESERVDT 18:15 → ENRESERVTM 18:15 → M PCU 19:00 → M ICU 08-16 17:13 → M MSPAV 08-17 15:06
PROVIDERS: ADMIT Internal Medicine; ATTEND Internal Medicine
PROC: 02HV33Z Insertion of Infusion Device into Superior Vena Cava, Percutaneous Approach (ICD-10-PCS; principal; 2019-08-16)
DX: A41.9 Sepsis, unspecified organism (principal); N17.9 Acute kidney failure, unspecified; E87.2 Acidosis; I13.0 Hypertensive heart and chronic kidney disease with heart failure and stage 1 through stage 4 chronic kidney disease, or unspecified chronic kidney disease; D68.4 Acquired coagulation factor deficiency; I95.9 Hypotension, unspecified; I50.9 Heart failure, unspecified; E11.51 Type 2 diabetes mellitus with diabetic peripheral angiopathy without gangrene; I27.81 Cor pulmonale (chronic); L97.315 Non-pressure chronic ulcer of right ankle with muscle involvement without evidence of necrosis; E87.5 Hyperkalemia; I48.20 Chronic atrial fibrillation, unspecified; N18.9 Chronic kidney disease, unspecified; Z79.01 Long term (current) use of anticoagulants; Z51.5 Encounter for palliative care; Z79.899 Other long term (current) drug therapy; Z88.8 Allergy status to other drugs, medicaments and biological substances; J44.9 Chronic obstructive pulmonary disease, unspecified; I25.10 Atherosclerotic heart disease of native coronary artery without angina pectoris; E78.5 Hyperlipidemia, unspecified; Z95.1 Presence of aortocoronary bypass graft; Z95.2 Presence of prosthetic heart valve; F17.200 Nicotine dependence, unspecified, uncomplicated; Z79.4 Long term (current) use of insulin; Z79.82 Long term (current) use of aspirin; D64.9 Anemia, unspecified; R65.20 Severe sepsis without septic shock